=== PATIENT | male | born 1970 | race African-American/Black ===

== ENCOUNTER 2016-11-18 21:42 | Emergency (ER) | payer BC, OTHER ==
[2016-11-18 21:56] VITALS: BP 146/80; PULSE 102; RESP 16; TEMP 98.4
== END 2016-11-18 22:40 | disposition home or self-care (01) ==
LOC: EC 21:42
DX: Z02.9 Encounter for administrative examinations, unspecified (principal)

== ENCOUNTER → 2016-12-04 | Outpatient (CLI) | payer BC, OTHER ==
--- NOTE | 2016-12-04 09:03 | CT ---
EXAMINATION TYPE: CT brain w con DATE OF EXAM: 12/04/2016 COMPARISON: NONE HISTORY: headaches CT DLP: 1090.4 mGycm Automated Exposure Control for Dose Reduction was Utilized. TECHNIQUE: CT scan of the head is performed with IV contrast.,CT scan of the head is performed withou t and with with IV Contrast, patient injected with 100 mL of Omnipaque 300. COMPARISON: None. FINDINGS: Noncontrast images show no acute intracranial hemorrhage or midline shift. The ventricles and sulci are within normal limits in size. Postcontrast images show no suspicious enhancing intrapa renchymal mass. There is old fracture deformity medial wall left orbit. The globes are intact. Visual ized paranasal sinuses are grossly clear. IMPRESSION: No suspicious enhancing intraparenchymal mass or midline shift identified. Evidence of ol d trauma to left orbit.
--- NOTE | 2016-12-04 09:09 | CT ---
EXAMINATION TYPE: CT chest wo con DATE OF EXAM: 12/04/2016 COMPARISON: CT chest October 16, 2008. HISTORY: f/u for previous abnormal lung findings, sarcoidosis CT DLP: 564.8 mGycm. Automated Exposure Control for Dose Reduction was Utilized. TECHNIQUE: CT scan of the thorax is performed without IV contrast. FINDINGS: LUNGS: Calcified pleural plaques are redemonstrated bilaterally. There is persistent linear scarring in both lung bases with slightly more nodular but stable 1.0 x 0.7 mm the lesion right lung base subp leural level on axial image 46 redemonstrated favoring rounded scar over round atelectasis. There is persistent linear scarring in the lingula seen best near coronal image 40. No new suspicious groundgl ass opacity or consolidation is seen. No significant pleural effusion or pneumothorax is present bila terally. No new suspicious nodularity is present. Slightly elevated left hemidiaphragm is again seen. MEDIASTINUM: Lack of IV contrast is noted to limit evaluation for mediastinal and especially hilar ad enopathy. There are persistent suspicious thoracic lymph nodes. For reference right paratracheal lymp h node measures 1.8 x 1.0 cm on axial image 24 unchanged from prior study. There are persistent stabl e prominent bilateral hilar as well as AP window and prevascular lymph nodes. No cardiomegaly or pe ricardial effusion is seen. OTHER: Mild to moderate multilevel spurring in the spine is redemonstrated. IMPRESSION: 1. Redemonstration of calcified pleural plaques suggesting prior asbestos exposure. 2. Redemonstration of borderline thoracic adenopathy and scattered bilateral lower lungs scarring corinne pected product of known sarcoidosis. No significant progression from 2009 study. No suspicious acute pulmonary process is evident.
== END | disposition home or self-care (01) ==
LOC: RADCTMAIN 08:05
PROVIDERS: ATTEND Internal Medicine
DX: J98.4 Other disorders of lung (principal); R59.0 Localized enlarged lymph nodes; R51 Headache
CPT/HCPCS: 70460; 71250; Q9967

== ENCOUNTER 2018-01-06 02:31 | Emergency (ER) | payer BC, OTHER ==
[2018-01-06 02:43] VITALS: BP 142/79; PULSE 99; RESP 16; TEMP 98.7
== END 2018-01-06 03:29 | disposition home or self-care (01) ==
LOC: EC 02:31
DX: Z02.9 Encounter for administrative examinations, unspecified (principal)

== ENCOUNTER → 2019-01-17 | Outpatient (CLI) | payer OTHER ==
[2019-01-17 09:30] LABS: HCT 41.9 % (39.0-53.0); HGB 14.1 gm/dL (13.0-17.5); MCH 28.9 pg (25.0-35.0); MCHC 33.7 g/dL (31.0-37.0); MCV 85.9 fL (80.0-100.0); Mean Platelet Volume 6.6; Platelet Count 309 k/uL (150-450); RBC 4.88 m/uL (4.30-5.90); RDW 13.3 % (11.5-15.5)
[2019-01-17 11:12] LABS: Eosinophils # (M) 0.76 k/uL (0-0.7); Lymphocytes # (M) 1.12 k/uL (1.0-4.8); Monocytes # (M) 0.32 k/uL (0-1.0); Neutrophils % (M) 45 %; Nucleated Red Blood Cells 0 /100 WBC (0-0); Total Cells Counted 100
[2019-01-17 16:21] LABS: African American GFR (CKD) 83.5 (60.0-200.0); Albumin 4.5 g/dL (3.80-4.90); Albumin/Globulin Ratio 1.96 (1.60-3.17); Anion Gap 7.2 mmol/L (4.00-12.00); BUN/Creat Ratio 14.17 Ratio (12.00-20.00); Calcium 9.8 mg/dL (8.7-10.3); Carbon Dioxide 25.8 mmol/L (21.6-31.8); Chol/HDL Ratio 3.53; Globulin 2.3 g/dL (1.6-3.3); LDL Cholesterol,Calculated 112.2 mg/dL (0.0-131.0); Magnesium 1.9 mg/dL (1.5-2.4); Non-African American GFR(CKD) 72.1 (60.0-200.0); Potassium 4.7 mmol/L (3.5-5.5); Total Bilirubin 0.5 mg/dL (0.3-1.2); Total Protein 6.8 g/dL (6.2-8.2); VLDL Calculation 16.8 mg/dL (5.00-40.00)
[2019-01-17 16:23] LABS: Vitamin D 25 Hydroxy 19.6 ng/mL (30.0-100.0)
[2019-01-21 22:25] LABS: Alternaria Alternata IgG 5.3 mcg/mL (< 13.6); Aspergillus fumigatus IgG Not detected (Not detected); Aureobasidium pullulans IgG 3.9 mcg/mL (< 13.6); Cladosporium herbarium IgG 38.7 mcg/mL (< 14.7); Phoma ssp. IgG 6.8 mcg/mL (< 6.6); Saccaharomospora viridis Not detected (Not detected); Saccaharopoly. rectivirgula Not detected (Not detected)
== END | disposition home or self-care (01) ==
LOC: LABWHC1 08:38
PROVIDERS: ATTEND Family Medicine
DX: J30.9 Allergic rhinitis, unspecified (principal); J45.20 Mild intermittent asthma, uncomplicated; R25.2 Cramp and spasm; N40.0 Benign prostatic hyperplasia without lower urinary tract symptoms; Z13.228 Encounter for screening for other metabolic disorders; Z13.220 Encounter for screening for lipoid disorders
CPT/HCPCS: 36415; 80053; 80061; 82164; 82306; 82607; 82785; 83036; 83735; 84153; 84443; 85025; 86001; 86606; 86609

== ENCOUNTER → 2021-08-28 | Outpatient (CLI) | payer BC, OTHER ==
--- NOTE | 2021-08-28 09:16 | XR ---
Left foot HISTORY: Pain, M 79.672, numbness and tingling great toe 3 views of the left foot Bone mineralization and joint spaces are essentially maintained, mild degenerative change present at the metatarsophalangeal joint of the first digit, there may been slight hallux valgus deformity. No f racture or dislocation. IMPRESSION: Mild osteoarthritic changes as described.
== END | disposition home or self-care (01) ==
LOC: RADXRMAIN 08:31
PROVIDERS: ATTEND Nurse Practitioner Gerontology
DX: M19.072 Primary osteoarthritis, left ankle and foot (principal)

== ENCOUNTER 2022-07-29 11:17 | Day surgery (SDC) | payer BC, OTHER ==
[~2022-07-29 11:17] MED LIST: LACTATED RINGERS 1,000 ML IV SCH
[2022-07-29 11:40] VITALS: RESP 18; TEMP 96.9
[2022-07-29] MEDS ORDERED: PROPOFOL 10 MG/ML 20 ML VIAL IV ONE (12:08)
--- NOTE | 2022-07-29 12:35 | P.PCN ---
Date of Procedure: 07/29/22 Procedure(s) Performed: BRIEF HISTORY: Patient is a 52-year-old pleasant -Citizen Of [place] male scheduled for an elective colonoscopy as a part of screening for colon cancer. PROCEDURE PERFORMED: Colonoscopy with biopsy and snare polypectomy. PREOPERATIVE DIAGNOSIS: Screening for colon cancer. IV sedation per Anesthesia. PROCEDURE: After informed consent was obtained, the patient, was brought into the endoscopy unit. IV sedation was administered by Anesthesia under continuous monitoring. Digital rectal examination was normal. Initially the Olympus CF-160 flexible video colonoscope was then inserted in the rectum, gradually advanced into the cecum without any difficulty. Careful examination was performed as the scope was gradually being withdrawn. Ileocecal valve and the appendiceal orifice were visualized and appeared normal. Prep was excellent. Mucosa of the cecum, a large ulcerated circumferential polyps involving the entire cecum and multiple biopsies were done from this area. The ascending colon, appeared normal. In the transverse colon there was a 1.5 cm broad-based polyp removed by snare polypectomy. In the descending colon there was a 1 cm pedunculated polyp removed by snare polypectomy. Rest of the transverse colon, descending colon, sigmoid colon, and rectum appeared normal. In the proximal rectum there was a diminutive polyp removed by cold biopsy Retroflexion was performed in the rectum and no lesions were seen. The patient tolerated the procedure well. IMPRESSION: CircumferentialuUlcerated cecal mass status post biopsy 1.5 cm broad-based transverse colon polyp status post polypectomy 1 cm pedunculated descending colon polyp status post polypectomy 3 mm proximal rectal polyp status post cold biopsy RECOMMENDATIONS: Findings of this examination were discussed with the patient as well as his family. He was advised to follow with the biopsy results and he'll be seen in office in one week. In the meantime he will be scheduled for CT of abdomen and pelvis.
[2022-07-29 12:59] VITALS: BP 112/81; PULSE 78
== END 2022-07-29 13:19 | disposition home or self-care (01) ==
LOC: ORWHC2ENDO 11:17
PROVIDERS: ATTEND Internal Medicine Gastroenterology
DX: Z12.11 Encounter for screening for malignant neoplasm of colon (principal); C18.0 Malignant neoplasm of cecum; D12.4 Benign neoplasm of descending colon; D12.3 Benign neoplasm of transverse colon; E78.5 Hyperlipidemia, unspecified; F12.90 Cannabis use, unspecified, uncomplicated; Z87.891 Personal history of nicotine dependence; Z79.899 Other long term (current) drug therapy
CPT/HCPCS: 45380; 45385; J2704; 88305

== ENCOUNTER → 2022-07-31 | Outpatient (CLI) | payer BC, OTHER ==
--- NOTE | 2022-07-31 12:35 | CT ---
EXAMINATION TYPE: CT abdomen pelvis w con CT DLP: 1345 mGycm, Automated exposure control for dose reduction was used. DATE OF EXAM: 07/31/2022 11:54 AM COMPARISON: 12/04/2016 CLINICAL INDICATION:Male, 52 years old with history of R19.09; Abnormal colonoscopy. TECHNIQUE: Axial CT of the abdomen and pelvis. Sagittal and coronal reformats were created on a [employer] workstation. Contrast used:100ml mL of Isovue 300 with IV Contrast, Oral contrast used: with Oral Contrast FINDINGS: LOWER CHEST: Calcified plaques noted along the pleura. ABDOMEN LIVER: 1 hypodense area within the liver measuring 9 mm series 3 image 21 GALLBLADDER AND BILE DUCTS: Unremarkable. PANCREAS: Unremarkable. SPLEEN: Unremarkable. ADRENAL GLANDS: Unremarkable. KIDNEYS AND URETERS: No evidence of hydronephrosis or renal calculus. The ureters are unremarkable. PELVIS BLADDER: Unremarkable REPRODUCTIVE: Unremarkable. ABDOMEN & PELVIS STOMACH AND BOWEL: Masslike appearance of the cecum measuring 5.7 x 3.4 cm which is near the base of the appendix. The appendix appears to be dilated measuring up to 9 mm and hyperemia of the mucosa. No shiela perforation at this time. There are hazy borders to this mass most pronounced along the medial aspect suggesting microinvasion into the mesenteric fat. PERITONEUM/RETROPERITONEUM: No evidence of pneumoperitoneum or free fluid. VASCULATURE: No evidence of aortic aneurysm. MUSCULOSKELETAL: No acute osseous abnormalities. Mild disc degeneration changes are present throughou t the thoracolumbar spine. LYMPH NODES: A few mesenteric lymph nodes seen in the mesentery near the mass mentioned above, the la rgest measuring up to 8 mm (series 3 image 44) SOFT TISSUE/ABDOMINAL WALL: Unremarkable IMPRESSION: 1. Cecal mass near the base of the appendix resulting in obstruction of the appendix. The appendix i s dilated with fluid with some hyperemia of the mucosa. Findings are concerning for impending rupture of the appendicitis. 2. Mesenteric lymph node and one indeterminate liver lesion which could represent metastatic disease . Consider PET/CT. 3. Calcified pleural plaquing which can be seen in the setting of prior asbestos exposure.
== END | disposition home or self-care (01) ==
LOC: RADCTMAIN 09:49
PROVIDERS: ATTEND Internal Medicine Gastroenterology
DX: J92.0 Pleural plaque with presence of asbestos (principal); R19.09 Other intra-abdominal and pelvic swelling, mass and lump
CPT/HCPCS: 74177; Q9967

== ENCOUNTER → 2022-08-09 | Outpatient (CLI) | payer BC, OTHER ==
--- NOTE | 2022-08-09 17:34 | MR ---
EXAMINATION TYPE: MR liver wo/w con DATE OF EXAM: 08/09/2022 3:45 PM INDICATION: Patient age:Male; 52 years old; Reason for study: K76.9 liver disease; COMPARISON: CT scan abdomen from 07/31/2022. TECHNIQUE: Multiplanar multi-sequence imaging was performed without contrast. Post contrast imaging was performed. Post IV contrast subtraction images were also submitted for review. IV Contrast: 9 cc Gadavist FINDINGS: LOWER CHEST: Pleural calcifications are less well appreciated on MRI. ABDOMEN Liver: Mild signal dropout on in phase chemical shift imaging. Right hepatic lobe 8 mm segment 6 lesion which is high T2/DWI signal and progressively fills in none delayed imaging. No suspicious hepatic lesions. Gallbladder and Bile ducts: Unremarkable. Pancreas: Unremarkable. Spleen: Mild signal dropout on in phase chemical shift imaging. Adrenal glands: Unremarkable. Kidneys: Left high T2 17 mm cyst there is thin septations within this lesion with postcontrast enhanc ement. Right inferior renal pole cyst measuring 8 mm with possible thin enhancing septa. Additional 1 -2 mm cysts Stomach and Bowel: The appendix is dilated up to 9 mm containing high T2 signal throughout the lumen. Masslike area near the cecum is less well visualized given [id number] and is only partially visua lized on coronal imaging. Peritoneum: No evidence of pneumoperitoneum or free fluid. Vasculature: Unremarkable. No aortic aneurysm. Musculoskeletal: The osseous structures appear intact. Lymph Nodes: The lymph node measuring 8 mm in short axis. Abdominal wall: Unremarkable. IMPRESSION: 1. Right hepatic lobe 8 mm lesion is favored to represent a hemangioma or other benign etiology give n progressive enhancement which persists on delayed imaging. No suspicious hepatic lesions. 2. 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 Consider short-t erm follow-up in 3-6 months to ensure stability. 3. Masslike area near the cecum with dilation of the appendix as seen on prior. There is a mesenteri c lymph node which is suspicious given cecal mass. 4. Iron deposition within the liver and spleen.
== END | disposition home or self-care (01) ==
LOC: RADMRIMAIN 14:52
PROVIDERS: ATTEND Internal Medicine Gastroenterology
DX: N28.1 Cyst of kidney, acquired (principal); K76.9 Liver disease, unspecified
CPT/HCPCS: 74183; A9585

== ENCOUNTER → 2022-08-14 | Outpatient (CLI) | payer BC, OTHER ==
--- NOTE | 2022-08-14 11:28 | XR ---
EXAMINATION TYPE: XR chest 2V DATE OF EXAM: 08/14/2022 COMPARISON: 11/10/2016 TECHNIQUE: PA and lateral views submitted. HISTORY: Pre colon surgery exam. FINDINGS: Lungs/Pleura: Bilateral costophrenic angle scarring redemonstrated. Bibasilar pleural plaques. No pne umothorax. No focal consolidation. No pleural effusions. Pulmonary vascularity: Unremarkable. Heart/m ediastinum: Heart is not enlarged. Bilateral hilar prominence is similar to prior examination. Muscul oskeletal: Multiple level degenerative disc disease changes seen throughout the spine. There is a 5mm nodule right lower lobe. IMPRESSION: 1. No acute cardiopulmonary disease/process. There is a 5mm nodule right lower lobe. 2. Redemonstration of calcified pleural plaques suggesting prior asbestos exposure. 3. Stable bilateral hilar prominence likely related to known sarcoidosis.
[2022-08-14 14:54] LABS: Basophils # (A) 0.05 X 10*3/uL (0.00-0.10); Basophils % (A) 1.1 %; Eosinophils % (A) 8.8 %; HCT 39.7 % (39.6-50.0); HGB 13.3 g/dL (13.0-17.0); Immature Grans, Automated 0 %; Lymphocytes # (A) 0.83 X 10*3/uL (0.90-5.00); Lymphocytes % (A) 18.2 %; MCH 27.7 pg (27.0-32.0); MCHC 33.5 g/dL (32.0-37.0); MCV 82.5 fL (80.0-97.0); Mean Platelet Volume 10.5 fL (9.5-12.2); Monocytes % (A) 13.1 %; NRBC Per 100 WBC 0 /100 WBCS (0.0-0.0); Neutrophils # (A) 2.69 X 10*3/uL (1.80-7.70); Neutrophils % (A) 58.8 %; Platelet Count 368 X 10*3/uL (140-440); RBC 4.81 X 10*6/uL (4.40-5.60); RDW 13.6 % (11.5-14.5); WBC 4.57 X 10*3/uL (4.50-10.00)
[2022-08-14 15:11] LABS: Carcinoembryonic Antigen 15.9 ng/mL (0.0-4.9)
[2022-08-14 15:39] LABS: INR 0.88 (0.90-1.11)
[2022-08-14 16:13] LABS: Alpha Fetoprotein, Tumor Mkr <1.82 ng/mL (0.00-7.90)
== END | disposition home or self-care (01) ==
LOC: LABWHC1 09:57
PROVIDERS: ATTEND Family Medicine
DX: Z01.812 Encounter for preprocedural laboratory examination (principal); C18.9 Malignant neoplasm of colon, unspecified; D86.3 Sarcoidosis of skin; J45.20 Mild intermittent asthma, uncomplicated; J68.3 Other acute and subacute respiratory conditions due to chemicals, gases, fumes and vapors
CPT/HCPCS: 36415; 71046; 82105; 82378; 83036; 83615; 83880; 84443; 85025; 85610

== ENCOUNTER 2022-08-29 07:30 | Inpatient (IN) | payer BC, OTHER ==
--- NOTE | 2022-08-21 15:46 | P.PN ---
Progress Note - Text Progress Note Date: 08/21/22 Patient reports obtaining EKG and medical clearance from his PCP Dr. Ramírez's office this month.
--- NOTE | 2022-08-29 06:21 | P.GSHP ---
History of Present Illness H&P Date: 08/29/22 CHIEF COMPLAINT: Colon cancer HISTORY OF PRESENT ILLNESS: The patient is a 52-year-old male recently diagnosed with colon cancer involving the cecum. Cardiac and medical clearance by his primary care provider. He completed colonoscopy within the last 3 weeks with a new diagnosis. He presents today for colonic resection. PAST MEDICAL HISTORY: Please see list. PAST SURGICAL HISTORY: Please see list. MEDICATIONS: Please see list. ALLERGIES: Please see list. SOCIAL HISTORY: No illicit drug use FAMILY HISTORY: No reports of Crohn disease or ulcerative colitis. REVIEW OF ORGAN SYSTEMS: CONSTITUTIONAL: Denies any fever or chills. HEENT: Denies any trouble with vision or nosebleeds. No difficulty swallowing. LYMPHATIC: The patient denies any lumps and bumps around the neck. ENDOCRINE: Denies any thyroid disorders. Has blood sugar glucose intolerance. RESPIRATORY: Denies pneumonia. Denies any troubles with breathing or dyspnea on exertion. History of asthma and sarcoidosis CARDIOVASCULAR: Denies any chest pain, palpitations, or recent heart attacks. GASTROINTESTINAL: See above. GENITOURINARY: Has increased urinary frequency. MUSCULOSKELETAL: Has back pain, stiffness, joint arthritis. NEUROLOGIC: Denies any numbness or tingling along the distal extremities. No seizure disorders or headaches. PSYCHIATRIC: Denies depression or suidical ideation. HEMATOLOGIC: Denies any abnormal bleeding or bruising. PHYSICAL EXAM: VITAL SIGNS: Stable GENERAL: Well-developed pleasant in no acute distress. HEENT: No scleral icterus. Extraocular movements grossly intact. Moist buccal mucosa. NECK: Supple without lymphadenopathy. CHEST: Unlabored respirations. Equal bilateral excursions. CARDIOVASCULAR: Regular rate and rhythm. Distal 2+ pulses. ABDOMEN: Soft, nontender, nondistended. MUSCULOSKELETAL: No clubbing, cyanosis, or edema. NERUO: Regular 2-12 grossly intact. PSYCH: Alert and oriented to person place and time. STUDIES: CT of the abdomen and pelvis independently reviewed demonstrates a large cecal mass with involvement of dilated appendix. This is my independent interpretation. RADIOLOGY: Recent liver MRI report demonstrates hemangioma of the liver. COLONOSCOPY: Report reviewed demonstrates a large ulcerated mass of the cecum. Descending colon polyp in transverse colon polyp resected. PATHOLOGY: Invasive adenocarcinoma involving cecal sample. Adenoma of the descending colon. Adenoma of the transverse colon with high-grade dysplasia. LABS: Elevated CEA levels. ASSESSMENT: 1. Colon cancer PLAN: 1. Benefits and risks of right hemicolectomy, extended reviewed. Robotic- assisted approach was also described. Possibility of open technique described. 2. Enhanced colon recovery program. 3. DVT prophylaxis. 4. Antibiotic prophylaxis. 5. Inpatient hospitalization over 2 nights described. 6. He is elevated risk due to pre-existing sarcoidosis Past Medical History Past Medical History: Hyperlipidemia Additional Past Medical History / Comment(s): sarcoidosis, polyps removed that were abnormal, small tumor History of Any Multi-Drug Resistant Organisms: None Reported Past Surgical History: No Surgical Hx Reported Additional Past Surgical History / Comment(s): achilles tendon repair, colonscopy Past Anesthesia/Blood Transfusion Reactions: No Reported Reaction Additional Past Anesthesia/Blood Transfusion Reaction / Comment(s): no blo9od tx hx Smoking Status: Current some day smoker Medications and Allergies Home Medications Medication Instructions Recorded Confirmed Type No Known Home Medications 08/28/22 08/28/22 History Allergies Allergy/AdvReac Type Severity Reaction Status Date / Time No Known Allergies Allergy Verified 08/28/22 08:06
[~2022-08-29 07:30] MED LIST changes: +ACETAMINOPHEN TAB 500 MG TAB PO PRN; +ALVIMOPAN 12 MG CAPSULE PO PRN; +Antibiotics per Pharmacy 1 EACH MISC MISCELLANE PRN; +DEXAMETHASONE SOD PHOSPHATE 4 MG/ML 1 ML VIAL IV ONE; +HEPARIN SODIUM,PORCINE/PF 5,000 UNIT/0.5 ML SYRINGE SQ PRN; +HYDROmorphone 0.5 MG/0.5 ML SYRINGE IVP PRN; -LACTATED RINGERS 1,000 ML IV SCH; +ONDANSETRON 4 MG/2 ML VIAL IVP ONE; +metroNIDAZOLE-NS PMX 500 MG in SALINE 1 100ML.BAG IVPB PRN
[2022-08-29] MEDS: LACTATED RINGERS 1,000 ML IV SCH (10:20)
[2022-08-29] MEDS ORDERED: SODIUM CHLORIDE 0.9% NEBULIZ 3 ML INHALATION ONE (10:31)
[2022-08-29 10:37] LABS: Basophils % (A) 0 %; Eosinophils # (A) 0.2 k/uL (0-0.7); Eosinophils % (A) 5 %; HCT 41.8 % (39.0-53.0); HGB 14.1 gm/dL (13.0-17.5); Lymphocytes # (A) 0.6 k/uL (1.0-4.8); Lymphocytes % (A) 12 %; MCH 28.2 pg (25.0-35.0); MCHC 33.7 g/dL (31.0-37.0); MCV 83.8 fL (80.0-100.0); Mean Platelet Volume 7.5; Monocytes # (A) 0.2 k/uL (0-1.0); Monocytes % (A) 5 %; Neutrophils # (A) 3.9 k/uL (1.3-7.7); Neutrophils % (A) 77 %; Platelet Count 316 k/uL (150-450); RBC 4.99 m/uL (4.30-5.90); RDW 13.7 % (11.5-15.5); WBC 5.1 k/uL (3.8-10.6)
[2022-08-29 10:51] LABS: ALT 27 U/L (4-49); AST 28 U/L (17-59); African American GFR (CKD) >90 (>60 ml/min/1.73 sqM); Alkaline Phosphatase 66 U/L (38-126); Anion Gap 10 mmol/L; Blood Urea Nitrogen 15 mg/dL (9-20); Calcium 8.8 mg/dL (8.4-10.2); Carbon Dioxide 21 mmol/L (22-30); Chloride 108 mmol/L (98-107); Glucose 283 mg/dL (74-99); Magnesium 2.1 mg/dL (1.6-2.3); Non-African American GFR(CKD) 87 (>60 ml/min/1.73 sqM); Potassium 4.2 mmol/L (3.5-5.1); Sodium 139 mmol/L (137-145); Total Bilirubin 0.4 mg/dL (0.2-1.3)
[2022-08-29] MEDS ORDERED: MIDAZOLAM 2 MG/2 ML VIAL IVP ONE (11:00)
[2022-08-29] MEDS ORDERED: fentaNYL (PF) 50 MCG/ML 2 ML AMP IVP ONE (11:00)
--- NOTE | 2022-08-29 11:33 | P.ANPRN ---
Procedure Note - Anesthesia - Nerve Block Performed Bilateral Erector Spinae Single Time Out Performed: Yes (1059) Date of Procedure: 08/29/22 Procedure Start Time: 11:00 Procedure Stop Time: 11:03 Location of Patient: PreOp Indication: Acute Post-Operative Pain, Requested by Surgeon Specifically requested for management of pain by : Sallie Oconnor Sedation Type: Sedate with meaningful contact maintained Preparation: Sterile Prep Position: Supine Catheter: None Needle Types: Pajunk Needle Gauge: 21 Ultrasound used to visualize needle placement: Yes Ultrasound used to observe medication spread: Yes Injectate: 0.5% Ropivacaine (see comment for volume) (15cc + 5cc nacl pf each side) Blood Aspirated: No Pain Paresthesia on Injection Noted: No Resistance on Injection: Normal Image Stored and Saved: Yes Events: Uneventful and Well Tolerated
[2022-08-29] MEDS ORDERED: MIDAZOLAM 2 MG/2 ML VIAL ONE (11:55)
[2022-08-29] MEDS ORDERED: ROCURONIUM 10 MG/ML (5 ML VIAL) IV ONE (11:55)
[2022-08-29] MEDS ORDERED: LIDOCAINE 2% INJ 20 MG/ML (2 ML VIAL) ONE (11:55)
[2022-08-29] MEDS ORDERED: NEOSTIGMINE 1 MG/ML 10 ML VIAL ONE (11:55)
[2022-08-29] MEDS ORDERED: HYDROmorphone (PF) 1 MG/ML ONE (11:55)
[2022-08-29] MEDS ORDERED: PHENYLEPHRINE-0.9% NACL SYG 1,000 MCG/10 ML SYRINGE ONE (11:55)
[2022-08-29] MEDS ORDERED: SODIUM CHLORIDE 0.9% (PF) 10 ML VIAL ONE (11:55)
[2022-08-29] MEDS ORDERED: PROPOFOL 10 MG/ML 20 ML VIAL IV ONE (11:55)
[2022-08-29] MEDS ORDERED: GLYCOPYRROLATE 0.2 MG/ML 2 ML VIAL ONE (11:55)
[2022-08-29] MEDS ORDERED: fentaNYL (PF) 50 MCG/ML 2 ML AMP ONE (11:55)
[2022-08-29] MEDS ORDERED: LABETALOL 5 MG/ML VIAL MDV ONE (11:55)
[2022-08-29] MEDS ORDERED: ROPIVACAINE 5 MG/ML 30 ML VIAL ONE (11:55)
[2022-08-29] MEDS ORDERED: SUCCINYLCHOLINE CHLORIDE 200 MG/10 ML VIAL IV ONE (11:55)
[2022-08-29] MEDS ORDERED: LIDOCAINE 0.5%-EPI 1:200,000 50 ML VIAL SQ ONE (12:34)
[2022-08-29] MEDS ORDERED: LACTATED RINGERS 1,000 ML IV ONE ×3 (12:50→16:43)
[2022-08-29] MEDS ORDERED: SODIUM CHLORIDE 0.9% 2,000 ML IV ONE (18:32)
[2022-08-29] MEDS ORDERED: TAMSULOSIN 0.4 MG CAP.ER.24H PO STA (18:33)
[2022-08-29] MEDS ORDERED: NALOXONE 0.4 MG/ML 1 ML VIAL IV PRN (18:33)
[2022-08-29] MEDS ORDERED: HYDROmorphone 1 MG/ML 1 ML SYRINGE IVP PRN (18:35)
[2022-08-29] MEDS ORDERED: METOCLOPRAMIDE 5 MG/ML 2 ML VIAL IVP PRN (18:48)
--- NOTE | 2022-08-29 18:48 | P.OP ---
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 Robot-assisted daVinci Xi laparoscopic extended right hemicolectomy Anesthesia: GETA, local, regional block Estimated Blood Loss (ml): 50 Urine output: 450 mL Condition: stable SPECIMENS REMOVED: terminal ileum and extended right colon en bloc, anastomosis COMPLICATIONS: None. Disposition: floor Operative Findings: 1. Liver surface unremarkable for hepatic nodules or metastases 2. More than 6 cm border obtained from cecum along ileum 3. No peritoneal metastases identified 4. Extended right hemicolectomy to mid transverse colon 5. Moderately dilated cecum 6. No perforation of the appendix identified 7. Inflammatory reaction along base of appendix 8. No gross local invasion identified of cecal mass, over 5 cm 9. Redundant hepatic flexure with moderate retroperitoneal attachments requiring additional 1-2 hours for dissection INDICATIONS: The patient is a 52-year-old male who presents with cecal colon cancer. Surgical intervention with colon resection was described in detail. Benefits and risks, including infection, injury to adjacent structures, open surgery possibility for additional surgery was discussed at length. Informed consent was obtained. All questions of the patient and family were answered. DESCRIPTION: Earlier the patient had undergone a bowel prep using the enhanced colon recovery program. The patient was transferred to the operating room and placed in supine position. After general anesthetic, a rivero catheter was placed. The abdomen was prepped and draped in standard sterile fashion as Ioban was placed along the abdomen to minimize any contamination of skin floor. After a timeout protocol was performed, attention was then brought to the left upper quadrant whereby a 0 degree 5 mm laparoscopic trocar entry was performed. The abdominal cavity was entered and insufflated to 15 mmHg pressure, which was tolerated well. Diagnostic laparoscopy demonstrated no injury to bowel, viscera or mesentery. The liver was unremarkable for hepatic metastases. Next trochars were placed along the left lateral abdomen. Two robotic 8-mm trocars were placed along the left lower abdomen. A 12 mm port was placed along the left upper quadrant. Ports were placed 9 cm apart from each other including 15-20 cm away from the target anatomy of the right pelvis. The 5-mm port was exchanged for a 12 mm robotic port. The patient was then placed in right side up 7 and reverse Trendelenburg 7. The robotic da Philipp XI system was primed and docked from the left side of the patient. Using atraumatic graspers and vessel sealer, the robotic system was docked and primed as described. Instruments were interchanged by the financial assistant including scissors, needle cdl company driver, robotic stapler and vessel sealer. Next, attention was brought to identify the cecum. A stay suture using 0 silk was placed along the anterior serosa of the along the terminal ileum. The terminal ileum and ascending colon mesentery was mobilized using a vessel sealer whereby the colon was marked and tagged. The redundant hepatic flexure with moderate retroperitoneal attachments and dissection is performed for additional 1-2 hours. The colon was prepared for resection along the mid transverse colon including for resection along the terminal ileum. Using robot stapler 60 mm blue load, the distal ileum was divided 8 centimeters proximal to the ileocecal valve. The mesentery of the ascending colon was mobilized towards the midline using a vessel sealer. The right colon was mobilized to the mid transverse colon and prepared for resection. The colon was divided using 60 mm green loads. The rest of the colon mesentery was mobilized using vessel sealer including using blunt dissection. The ascending colon was mobilized from proximal to distal with the meeting point of the hepatic flexure. The vascular pedicle of the ileocolic artery was controlled using vessel sealer. The mid transverse colon and distal ileum was brought in a side to side antiperistaltic anastomotic fashion after placing interrupted sutures along the proposed kasi-lumen using 3-0 silk. A colotomy and enterotomy was prepared along both limbs along the antimesenteric border. Next, 60 mm green stapler loads were fired to create the kasi-lumen and hemostatic. The kasi-lumen was reapproximated using 3-0 silk followed by 60 mm green loads for closure of the enterostomy. The mesenteric defect was closed using 2-0 VLOC to prevent internal hernia. All needles and sponges were removed from the abdominal cavity. Next, a 15 mm Endo Catch bag was placed by the financial assistant through the 12 mm trocar of the left upper quadrant. Specimen was placed. The robot was undocked. I re-scrubbed into the case. Via the 12 mm port of the left upper quadrant, the right colon was removed after widening the skin incision to 5-cm using 15-mm Endo Catch bag. The fascial defect was oversewn using 0 Vicryl and Bacilio Emmanuel. Next all pneumoperitoneum was evacuated from the abdominal cavity. The 8-mm trocar sites were reapproximated using 4-0 Monocryl in an interrupted subcuticular fashion. Local anesthetic was infiltrated to all wounds for postop analgesia. All incisions were also cleansed with diluted hydrogen peroxide. Liquid was applied to the rest of the skin incisions. The patient had tolerated the procedure well. The patient was extubated successfully. Intraoperative photos were reviewed with the patient's family who were overall pleased with the level of care. The patient was transferred to the postanesthesia care unit in stable condition.
[2022-08-29] MEDS: FAMOTIDINE 20 MG/2 ML VIAL IV SCH (21:07)
[2022-08-29] MEDS: HEPARIN SODIUM,PORCINE/PF 5,000 UNIT/0.5 ML SYRINGE SQ SCH (21:07)
[2022-08-29] MEDS: fentaNYL PCA 500 MCG/50 ML BAG IV SCH (22:31)
[2022-08-30] MEDS: ACETAMINOPHEN IV (For NPO) 1,000 MG in EMPTY BAG 1 BAG IVPB SCH ×4 (00:05→17:17)
[2022-08-30] MEDS: ONDANSETRON 4 MG/2 ML VIAL IVP SCH ×5 (00:06→23:28)
[2022-08-30] MEDS: SODIUM CHLORIDE 0.9% 1,000 ML IV SCH ×3 (00:06→15:36)
[2022-08-30] MEDS: D5-0.45% NACL WITH KCL 20MEQ/L 1,000 ML IV SCH ×5 (00:06→23:23)
[2022-08-30] MEDS: KETOROLAC 15 MG/ML 1 ML VIAL IVP SCH ×5 (00:06→23:24)
[2022-08-30] MEDS: SIMETHICONE 80 MG CHEWABLE PO SCH ×4 (00:06→20:59)
[2022-08-30 06:29] LABS: Basophils % (A) 0 %; Eosinophils # (A) 0.1 k/uL (0-0.7); Eosinophils % (A) 1 %; HCT 36.7 % (39.0-53.0); Lymphocytes # (A) 0.8 k/uL (1.0-4.8); Lymphocytes % (A) 7 %; MCH 27.8 pg (25.0-35.0); MCHC 32.7 g/dL (31.0-37.0); MCV 84.9 fL (80.0-100.0); Mean Platelet Volume 9.1; Monocytes # (A) 0.7 k/uL (0-1.0); Monocytes % (A) 6 %; Neutrophils % (A) 84 %; Platelet Count 275 k/uL (150-450); RBC 4.32 m/uL (4.30-5.90); WBC 10.7 k/uL (3.8-10.6)
[2022-08-30 06:40] LABS: African American GFR (CKD) >90 (>60 ml/min/1.73 sqM); Anion Gap 9 mmol/L; Blood Urea Nitrogen 13 mg/dL (9-20); Calcium 8.4 mg/dL (8.4-10.2); Carbon Dioxide 22 mmol/L (22-30); Chloride 107 mmol/L (98-107); Glucose 125 mg/dL (74-99); Non-African American GFR(CKD) >90 (>60 ml/min/1.73 sqM); Potassium 4.3 mmol/L (3.5-5.1); Sodium 138 mmol/L (137-145)
[2022-08-30] MEDS: LACTATED RINGERS 1,000 ML IV SCH (07:31)
[2022-08-30] MEDS: FAMOTIDINE 20 MG/2 ML VIAL IV SCH ×2 (08:32→20:59)
[2022-08-30] MEDS: HEPARIN SODIUM,PORCINE/PF 5,000 UNIT/0.5 ML SYRINGE SQ SCH ×2 (08:32→20:59)
[2022-08-30] MEDS: TAMSULOSIN 0.4 MG CAP.ER.24H PO SCH (08:32)
[2022-08-30] MEDS: fentaNYL PCA 500 MCG/50 ML BAG IV SCH (11:13)
--- NOTE | 2022-08-30 17:04 | P.PN ---
Subjective Progress Note Date: 08/30/22 Has appropriate incisional pain following abdominal block. "It now hurts after the block wore off." He is tolerating diet and voiding. Pain pump at bedside. He reports decrease need for narcotics. Discharge pending now nausea, voiding spontaneosly and pain controlled less than 5/10. Continue hospital course pending improvement of incisional pain. Administer missed doses of prophylactic antibiotics. Objective - Vital Signs Vital signs: Vital Signs Temp 98.4 F 08/30/22 14:00 Pulse 74 08/30/22 14:00 Resp 16 08/30/22 14:00 BP 130/90 08/30/22 14:00 Pulse Ox 100 08/30/22 14:00 FiO2 Intake & Output 08/29/22 08/30/22 08/30/22 18:59 06:59 18:59 Intake Total 3750 300 Output Total 500 Balance 3250 300 Weight 94.8 kg Intake: IV 3750 300 Output: Urine 450 Estimated Blood Loss 50 Other: # Voids 1 - Labs CBC & Chem 7: 08/30/22 05:38 08/30/22 05:38 Labs: Abnormal Lab Results - Last 24 Hours (Table) 08/30/22 08/30/22 Range/Units 05:38 05:38 WBC 10.7 H (3.8-10.6) k/uL Hgb 12.0 L (13.0-17.5) gm/dL Hct 36.7 L (39.0-53.0) % Neutrophils # 9.0 H (1.3-7.7) k/uL Lymphocytes # 0.8 L (1.0-4.8) k/uL Glucose 125 H (74-99) mg/dL
[2022-08-30] MEDS: metroNIDAZOLE-NS PMX 500 MG in SALINE 1 100ML.BAG IVPB SCH ×2 (18:10→23:30)
[2022-08-31] MEDS: SODIUM CHLORIDE 0.9% 1,000 ML IV SCH ×2 (04:53→12:03)
[2022-08-31] MEDS: fentaNYL PCA 500 MCG/50 ML BAG IV SCH (06:08)
[2022-08-31] MEDS: KETOROLAC 15 MG/ML 1 ML VIAL IVP SCH ×2 (06:28→12:05)
[2022-08-31] MEDS: metroNIDAZOLE-NS PMX 500 MG in SALINE 1 100ML.BAG IVPB SCH ×2 (06:28→14:17)
[2022-08-31] MEDS: ONDANSETRON 4 MG/2 ML VIAL IVP SCH ×2 (06:28→12:05)
[2022-08-31 06:44] LABS: African American GFR (CKD) 86 (>60 ml/min/1.73 sqM); Anion Gap 3 mmol/L; Blood Urea Nitrogen 11 mg/dL (9-20); Calcium 8.2 mg/dL (8.4-10.2); Carbon Dioxide 25 mmol/L (22-30); Chloride 108 mmol/L (98-107); Glucose 97 mg/dL (74-99); Non-African American GFR(CKD) 74 (>60 ml/min/1.73 sqM); Potassium 4.5 mmol/L (3.5-5.1); Sodium 136 mmol/L (137-145)
[2022-08-31 06:59] LABS: Basophils % (A) 1 %; Eosinophils # (A) 0.2 k/uL (0-0.7); Eosinophils % (A) 4 %; HCT 35.2 % (39.0-53.0); HGB 11.6 gm/dL (13.0-17.5); Lymphocytes # (A) 0.8 k/uL (1.0-4.8); Lymphocytes % (A) 16 %; MCH 27.8 pg (25.0-35.0); MCHC 33.1 g/dL (31.0-37.0); MCV 84.2 fL (80.0-100.0); Mean Platelet Volume 9.3; Monocytes # (A) 0.5 k/uL (0-1.0); Monocytes % (A) 9 %; Neutrophils # (A) 3.7 k/uL (1.3-7.7); Neutrophils % (A) 70 %; Platelet Count 261 k/uL (150-450); RBC 4.19 m/uL (4.30-5.90); RDW 14.2 % (11.5-15.5); WBC 5.4 k/uL (3.8-10.6)
[2022-08-31] MEDS: LACTATED RINGERS 1,000 ML IV SCH (07:46)
[2022-08-31] MEDS: FAMOTIDINE 20 MG/2 ML VIAL IV SCH (09:28)
[2022-08-31] MEDS: HEPARIN SODIUM,PORCINE/PF 5,000 UNIT/0.5 ML SYRINGE SQ SCH (09:28)
[2022-08-31] MEDS: SIMETHICONE 80 MG CHEWABLE PO SCH (09:29)
[2022-08-31] MEDS: TAMSULOSIN 0.4 MG CAP.ER.24H PO SCH (09:29)
[2022-08-31] MEDS ORDERED: SODIUM CHLORIDE 0.9% 2,000 ML IV ONE (10:04)
[2022-08-31] MEDS ORDERED: oxyCODONE-APAP 7.5-325MG 1 EACH TAB PO PRN (12:17)
--- NOTE | 2022-08-31 12:44 | P.DS ---
Providers Date of admission: 08/29/22 09:45 Expected date of discharge: 08/31/22 Attending physician: Sallie Oconnor Consults: 08/29/22 18:51 Consult Physician Routine Consulting Provider: Joe Finn Consult Reason/Comments: colon cancer, new Do you want consulting provider notified?: Yes, Notify in am Primary care physician: [facility] Course: Patient is status post right colectomy for cecal colon cancer. Postoperatively, pain managed with fentanyl CYBER FORENSICS ANALYST including scheduled on narcotic management. Prior to discharge, patient had bowel movement. White blood cell count was normal. Hemoglobin was stable. Discharge instructions: Lifting instructions reviewed. Percocet prescribed with consent form for narcotics obtained. All questions adjusted patient and his over the telephone. Follow-up telehealth in 48 hours. Patient Condition at Discharge: Good Plan - Discharge Summary Discharge Rx Participant: No New Discharge Prescriptions: New Simethicone [Gas-X] 125 mg PO AC-TID PRN #20 capsule PRN Reason: Pain Ibuprofen [Motrin] 600 mg PO Q8HR PRN #30 tab PRN Reason: Pain oxyCODONE-APAP 7.5-325MG [Percocet 7.5-325 mg] 1 tab PO Q6HR PRN 3 Days #12 tab PRN Reason: Pain Acetaminophen Tab [Tylenol Tab] 1,000 mg PO Q6HR PRN #30 tablet PRN Reason: Pain Discharge Medication List Acetaminophen Tab [Tylenol Tab] 1,000 mg PO Q6HR PRN #30 tablet 08/31/22 [Rx] Ibuprofen [Motrin] 600 mg PO Q8HR PRN #30 tab 08/31/22 [Rx] Simethicone [Gas-X] 125 mg PO AC-TID PRN #20 capsule 08/31/22 [Rx] oxyCODONE-APAP 7.5-325MG [Percocet 7.5-325 mg] 1 tab PO Q6HR PRN 3 Days #12 tab 08/31/22 [Rx] Follow up Appointment(s)/Referral(s): Sallie Oconnor MD [STAFF PHYSICIAN] - 09/02/22 Patient Instructions/Handouts: Laparoscopic Bowel Resection (GEN), Colectomy Diet (DC), *[facility] - Managing Your Pain After Surgery Without Opioids, Oxycodone/Acetaminophen (By mouth) Activity/Diet/Wound Care/Special Instructions: EXPECT BOWEL MOVEMENT WITH BLOOD FOR 1 WEEK Wear abdominal binder for comfort. No lifting over 4 pounds in 4 weeks September 28July shower. No bath tub soaks for two weeks until September 12 Avoid steak, tough meats and seeds such as raspberry seeds. See diverticulitis, low fiber, colectomy diet Use Tylenol and ibuprofen scheduled for the next 24-48 hours for best pain relief. Use ice along incisions for today to prevent swelling. Discharge Disposition: HOME SELF-CARE
[2022-08-31 14:05] VITALS: BP 134/79; PULSE 80; RESP 17; TEMP 96.8
[2022-08-31] MEDS: D5-0.45% NACL WITH KCL 20MEQ/L 1,000 ML IV SCH (14:17)
== END 2022-08-31 16:20 | disposition home or self-care (01) | DRG 331 ==
LOC: 2ORMAIN 09:45 → 4SSUR 18:52
PROVIDERS: ADMIT Surgery Plastic and Reconstructive Surgery; ATTEND Surgery Plastic and Reconstructive Surgery
PROC: 8E0W4CZ Robotic Assisted Procedure of Trunk Region, Percutaneous Endoscopic Approach (ICD-10-PCS; principal; 2022-08-29 11:15)
PROC: 0DTL4ZZ Resection of Transverse Colon, Percutaneous Endoscopic Approach (ICD-10-PCS; principal; 2022-08-29 11:15)
PROC: 0DTF4ZZ Resection of Right Large Intestine, Percutaneous Endoscopic Approach (ICD-10-PCS; principal; 2022-08-29 11:15)
DX: C18.0 Malignant neoplasm of cecum (principal); D12.3 Benign neoplasm of transverse colon; J68.3 Other acute and subacute respiratory conditions due to chemicals, gases, fumes and vapors; Z28.310 Unvaccinated for COVID-19; J45.20 Mild intermittent asthma, uncomplicated; D86.3 Sarcoidosis of skin; E78.5 Hyperlipidemia, unspecified; R35.0 Frequency of micturition; M19.90 Unspecified osteoarthritis, unspecified site; D18.03 Hemangioma of intra-abdominal structures; M54.9 Dorsalgia, unspecified; N28.1 Cyst of kidney, acquired; F12.90 Cannabis use, unspecified, uncomplicated; Z79.899 Other long term (current) drug therapy; Z79.51 Long term (current) use of inhaled steroids
CPT/HCPCS: 64999; 80048; 80053; 82378; 83735; 85025; 88309; 93005; 94760

== ENCOUNTER 2022-09-03 04:47 | Inpatient (IN) | payer BC, OTHER ==
[2022-09-03] MEDS ORDERED: ONDANSETRON 4 MG/2 ML VIAL IVP STA (05:15)
[2022-09-03] MEDS ORDERED: PANTOPRAZOLE 40 MG/10 ML VIAL IVP STA (05:15)
[2022-09-03] MEDS ORDERED: SODIUM CHLORIDE 0.9% 2,000 ML IV STA (05:15)
[2022-09-03] MEDS ORDERED: fentaNYL (PF) 50 MCG/ML 2 ML AMP IVP STA (05:22)
[2022-09-03 05:40] LABS: Basophils % (A) 0 %; Eosinophils # (A) 0.1 k/uL (0-0.7); Eosinophils % (A) 1 %; HCT 40.2 % (39.0-53.0); HGB 13.5 gm/dL (13.0-17.5); Lymphocytes # (A) 0.5 k/uL (1.0-4.8); Lymphocytes % (A) 4 %; MCH 28.1 pg (25.0-35.0); MCHC 33.6 g/dL (31.0-37.0); MCV 83.6 fL (80.0-100.0); Mean Platelet Volume 8.2; Monocytes # (A) 0.4 k/uL (0-1.0); Monocytes % (A) 3 %; Neutrophils # (A) 11.3 k/uL (1.3-7.7); Neutrophils % (A) 91 %; Platelet Count 346 k/uL (150-450); RBC 4.81 m/uL (4.30-5.90); RDW 13.8 % (11.5-15.5); WBC 12.5 k/uL (3.8-10.6)
[2022-09-03 05:48] LABS: ALT 24 U/L (4-49); AST 30 U/L (17-59); African American GFR (CKD) 40 (>60 ml/min/1.73 sqM); Albumin 3.4 g/dL (3.5-5.0); Alkaline Phosphatase 63 U/L (38-126); Amylase 65 U/L (30-110); Anion Gap 15 mmol/L; Blood Urea Nitrogen 33 mg/dL (9-20); Calcium 10.2 mg/dL (8.4-10.2); Carbon Dioxide 25 mmol/L (22-30); Chloride 98 mmol/L (98-107); Glucose 152 mg/dL (74-99); Lipase 15 U/L (23-300); Non-African American GFR(CKD) 35 (>60 ml/min/1.73 sqM); Potassium 4.2 mmol/L (3.5-5.1); Sodium 138 mmol/L (137-145); Total Bilirubin 0.9 mg/dL (0.2-1.3); Total Protein 6.4 g/dL (6.3-8.2)
[2022-09-03 06:47] LABS: INR 1.1 (<1.2); Partial Thromboplastin Time 27.3 sec (22.0-30.0); Prothrombin Time 11.4 sec (9.0-12.0)
--- NOTE | 2022-09-03 06:55 | ED ---
General Adult HPI - General Chief complaint: Nausea/Vomiting/Diarrhea Stated complaint: Post Op Complication,Vomiting,Chills Time Seen by Provider: 09/03/22 05:16 Source: patient, RN notes reviewed, old records reviewed Mode of arrival: ambulatory Limitations: no limitations - History of Present Illness Initial comments: Patient is a 52-year-old male who presents emergency Department complaining of abdominal pain, distention, nausea and vomiting beginning yesterday. Last week he did have a colectomy secondary to colon cancer with Dr. Oconnor. Was discharged on Thursday, however began having a symptoms yesterday. Presents emergency department over worsening symptoms. Denies any chest pain or shortness of breath. Denies any fevers or chills. States he has had some bowel movements but they have not been normal for him. Denies any urinary complaints. Presents for further evaluation at this time. - Related Data Previous Rx's Medication Instructions Recorded Acetaminophen Tab [Tylenol Tab] 1,000 mg PO Q6HR PRN #30 tablet 08/31/22 Ibuprofen [Motrin] 600 mg PO Q8HR PRN #30 tab 08/31/22 Simethicone [Gas-X] 125 mg PO AC-TID PRN #20 capsule 08/31/22 oxyCODONE-APAP 7.5-325MG [Percocet 1 tab PO Q6HR PRN 3 Days #12 tab 08/31/22 7.5-325 mg] Allergies Allergy/AdvReac Type Severity Reaction Status Date / Time No Known Allergies Allergy Verified 09/03/22 07:07 Review of Systems ROS Statement: Those systems with pertinent positive or pertinent negative responses have been documented in the HPI. Review of Systems: CONST: Denies fever EYES: Denies blurry vision ENT: Denies nasal congestion C/V: Denies Chest pain RESP: Denies shortness of breath GI: Endorses abdominal pain : Denies dysuria SKIN: Denies rash. MSK: Denies joint pain. NEURO: Denies headache ROS Other: All systems not noted in ROS Statement are negative. Past Medical History Past Medical History: Hyperlipidemia Additional Past Medical History / Comment(s): sarcoidosis, polyps removed that were abnormal, small tumor History of Any Multi-Drug Resistant Organisms: None Reported Past Surgical History: No Surgical Hx Reported Additional Past Surgical History / Comment(s): achilles tendon repair, colonscopy, partial colectomy Past Anesthesia/Blood Transfusion Reactions: No Reported Reaction Additional Past Anesthesia/Blood Transfusion Reaction / Comment(s): no blo9od tx hx Past Psychological History: No Psychological Hx Reported Smoking Status: Current some day smoker Past Alcohol Use History: Occasional Past Drug Use History: Marijuana General Exam - General Exam Comments Initial Comments: General: Appears in moderate distress secondary to abdominal discomfort. HEAD: Normal with no signs of head trauma. EYES: PERRLA, EOMI, conjunctiva normal, no discharge. ENT: Hearing grossly intact, normal oropharynx. Dry mucus membranes RESPIRATORY: Clear breath sounds bilaterally. No wheezes, rales, or rhonchi. C/V: Regular rate and rhythm. S1 and S2 auscultated, no edema, peripheral pulses 2+ and intact throughout ABD: Abdomen is distended, tender to palpation nonspecifically. No guarding. No peritoneal signs. No rebound tenderness. EXT: Normal range of motion, no obvious deformity SKIN: No rashes or lesions observed on exposed skin. NEURO: Alert and oriented 4. Limitations: no limitations Course Vital Signs 09/03/22 09/03/22 04:58 05:46 Temperature 98.1 F Pulse Rate 142 H 131 H Respiratory 24 Rate Blood Pressure 95/77 112/87 O2 Sat by Pulse 97 Oximetry Medical Decision Making - Medical Decision Making Was pt. sent in by a medical professional or institution (BOLIVAR Lim, CLINICAL NURSING PROFESSOR, urgent care, hospital, or correction...) When possible be specific @ -No Did you speak to anyone other than the patient for history (EMS, parent, family, police, friend...)? What history was obtained from this source @ -No Did you review nursing and triage notes (agree or disagree)? Why? @ -I reviewed and agree with nursing and triage notes Were old charts reviewed (outside hosp., previous admission, EMS record, old EKG, old radiological studies, urgent care reports/EKG's, correction records)? Report findings @ -Reviewed old charts From last week. Differential Diagnosis (chest pain, altered mental status, abdominal pain women, abdominal pain men, vaginal bleeding, weakness, fever, dyspnea, syncope, headache, dizziness, GI bleed, back pain, seizure, CVA, palpatations, mental health, musculoskeletal)? @ -Differential Abdominal Pain Women: Appendicitis, Cholecystitis, diverticulosis, ischemic bowel, pancreatitis, hepatitis, UTI, gastroenteritis, AAA, incarcerated hernia, bowel obstruction, constipation, inflammatory bowel, hepatitis, peptic ulcer disease, splenic infarction, perforated viscus, vulvitis, ovarian torsion, PID, kidney stone, placenta abruption, this is not meant to be an all-inclusive list EKG interpreted by me (3pts min.). @ -As above X-rays interpreted by me (1pt min.). @ -None done CT interpreted by me (1pt min.). @ -CT shows findings concerning for small bowel obstruction partial versus ileus. U/S interpreted by me (1pt. min.). @ -None done What testing was considered but not performed or refused? (CT, X-rays, U/S, labs)? Why? @ -None What meds were considered but not given or refused? Why? @ -None Did you discuss the management of the patient with other professionals (juice cat i.e. , PA, CLINICAL NURSING PROFESSOR, lab, RT, psych nurse, social service liaison, attorney lawyer, teacher, custodial officer, case operator)? Give summary @ -Discussed the patient with Dr. Oconnor who accepted the admission. Requested NG tube. No antibody except this time. We'll continue fluid hydration. Was smoking cessation discussed for >3mins.? @ -No Was critical care preformed (if so, how long)? @ -No Were there social determinants of health that impacted care today? How? (Homelessness, low income, unemployed, alcoholism, drug addiction, transportation, low edu. Level, literacy, decrease access to med. care, group home, rehab)? @ -No Was there de-escalation of care discussed even if they declined (Discuss DNR or withdrawal of care, Hospice)? DNR status @ -No What co-morbidities impacted this encounter? (DM, HTN, Smoking, COPD, CAD, Cancer, CVA, ARF, Chemo, Hep., AIDS, mental health diagnosis, sleep apnea, morbid obesity)? @ -None Was patient admitted / discharged? Hospital course, mention meds given and route, prescriptions, significant lab abnormalities, going to OR and other pertinent info. @ -Based on the patient's presentation and physical exam, presents with postop abdominal pain. Concern for possible small bowel obstruction versus postop infection. We'll obtain CT abdomen and pelvis as well as abdominal laboratory studies. Patient will be sent likely treatment with IV fluids, as well as IV Zofran, Protonix, fentanyl. Patient was in agreement this plan. As remarkable for tachycardia which I believe is likely secondary to dehydration as he has had numerous episodes of emesis. Laboratory studies are remarkable for mild leukocytosis of 12 which is likely reactive. Patient has an AK I with a BUN of 33 and creatinine 2.14. Patient also has a lactic acidosis of 3.6. Imaging is remarkable for possible ileus versus partial small bowel obstruction. I discussed the findings with the patient. He is made nothing by mouth. We will start the patient on an NG tube. He is made nothing by mouth. We will continue analgesic medications as well as IV fluids. I discussed the case with his surgeon, Dr. Oconnor who was in agreement this plan. We will hold the antibiotic and now is lactic acidosis is likely secondary to extreme dehydration. Patient was in agreement this plan. Patient admitted in stable condition. Undiagnosed new problem with uncertain prognosis? @ -No Drug Therapy requiring intensive monitoring for toxicity (Heparin, Nitro, Insulin, Cardizem)? @ -No Were any procedures done? @ -No Diagnosis/symptom? @ -Ileus, nausea and vomiting, dehydration Acute, or Chronic, or Acute on Chronic? @ -Acute Uncomplicated (without systemic symptoms) or Complicated (systemic symptoms)? @ -Complicated Side effects of treatment? @ -No Exacerbation, Progression, or Severe Exacerbation? @ -No Poses a threat to life or bodily function? How? (Chest pain, USA, MD, pneumonia, PE, COPD, DKA, ARF, appy, cholecystitis, CVA, Diverticulitis, Homicidal, Suicidal, threat to staff... and all critical care pts) @ -yes - Lab Data Result diagrams: 09/03/22 05:29 09/03/22 05:29 Lab Results 09/03/22 09/03/22 09/03/22 Range/Units 05:29 05:29 05:29 WBC 12.5 H (3.8-10.6) k/uL RBC 4.81 (4.30-5.90) m/uL Hgb 13.5 (13.0-17.5) gm/dL Hct 40.2 (39.0-53.0) % MCV 83.6 (80.0-100.0) fL MCH 28.1 (25.0-35.0) pg MCHC 33.6 (31.0-37.0) g/dL RDW 13.8 (11.5-15.5) % Plt Count 346 (150-450) k/uL MPV 8.2 Neutrophils % 91 % Lymphocytes % 4 % Monocytes % 3 % Eosinophils % 1 % Basophils % 0 % Neutrophils # 11.3 H (1.3-7.7) k/uL Lymphocytes # 0.5 L (1.0-4.8) k/uL Monocytes # 0.4 (0-1.0) k/uL Eosinophils # 0.1 (0-0.7) k/uL Basophils # 0.0 (0-0.2) k/uL PT 11.4 (9.0-12.0) sec INR 1.1 (<1.2) APTT 27.3 (22.0-30.0) sec Sodium 138 (137-145) mmol/L Potassium 4.2 (3.5-5.1) mmol/L Chloride 98 (98-107) mmol/L Carbon Dioxide 25 (22-30) mmol/L Anion Gap 15 mmol/L BUN 33 H (9-20) mg/dL Creatinine 2.14 H (0.66-1.25) mg/dL Est GFR (CKD-EPI)AfAm 40 (>60 ml/min/1.73 sqM) Est GFR (CKD-EPI)NonAf 35 (>60 ml/min/1.73 sqM) Glucose 152 H (74-99) mg/dL Plasma Lactic Acid Jovanni (0.7-2.0) mmol/L Calcium 10.2 (8.4-10.2) mg/dL Total Bilirubin 0.9 (0.2-1.3) mg/dL AST 30 (17-59) U/L ALT 24 (4-49) U/L Alkaline Phosphatase 63 (38-126) U/L Total Protein 6.4 (6.3-8.2) g/dL Albumin 3.4 L (3.5-5.0) g/dL Amylase 65 (30-110) U/L Lipase 15 L (23-300) U/L 09/03/22 Range/Units 05:29 WBC (3.8-10.6) k/uL RBC (4.30-5.90) m/uL Hgb (13.0-17.5) gm/dL Hct (39.0-53.0) % MCV (80.0-100.0) fL MCH (25.0-35.0) pg MCHC (31.0-37.0) g/dL RDW (11.5-15.5) % Plt Count (150-450) k/uL MPV Neutrophils % % Lymphocytes % % Monocytes % % Eosinophils % % Basophils % % Neutrophils # (1.3-7.7) k/uL Lymphocytes # (1.0-4.8) k/uL Monocytes # (0-1.0) k/uL Eosinophils # (0-0.7) k/uL Basophils # (0-0.2) k/uL PT (9.0-12.0) sec INR (<1.2) APTT (22.0-30.0) sec Sodium (137-145) mmol/L Potassium (3.5-5.1) mmol/L Chloride (98-107) mmol/L Carbon Dioxide (22-30) mmol/L Anion Gap mmol/L BUN (9-20) mg/dL Creatinine (0.66-1.25) mg/dL Est GFR (CKD-EPI)AfAm (>60 ml/min/1.73 sqM) Est GFR (CKD-EPI)NonAf (>60 ml/min/1.73 sqM) Glucose (74-99) mg/dL Plasma Lactic Acid Jovanni 3.6 H* (0.7-2.0) mmol/L Calcium (8.4-10.2) mg/dL Total Bilirubin (0.2-1.3) mg/dL AST (17-59) U/L ALT (4-49) U/L Alkaline Phosphatase (38-126) U/L Total Protein (6.3-8.2) g/dL Albumin (3.5-5.0) g/dL Amylase (30-110) U/L Lipase (23-300) U/L - EKG Data -: EKG Interpreted by Me EKG Comments: 12-lead Electrocardiogram Interpretation Note EKG was reviewed and interpreted by myself. 12-lead ECG performed at 0616 is interpreted by me as revealing sinus tachycardia at a rate of 125 beats per minute. [place] is normal. NE interval is 124 ms, QRS duration is 100 ms, QTc is 410 ms.. There were no ST or T wave abnormalities to suggest myocardial ischemia or injury. R wave progression across the precordium was satisfactory. B y my interpretation this EKG is non-diagnostic for acute ischemia. Disposition Clinical Impression: Ileus, Dehydration, Abdominal pain Disposition: ADMITTED IP TO THIS HOSP Condition: Stable Referrals: Analy Ramírez MD [Primary Care Provider] - 1-2 days Time of Disposition: 07:15
--- NOTE | 2022-09-03 06:57 | CT ---
EXAMINATION TYPE: CT abdomen pelvis w con DATE OF EXAM: 09/03/2022 COMPARISON: CT abdomen pelvis July 31, 2022 HISTORY: Partial colectomy done on 08/28/22. Recent nausea, vomiting and generalized abdominal pain. CT DLP: 1444.4 mGycm, Automated Exposure Control for Dose Reduction was Utilized. CONTRAST: CT scan of the abdomen and pelvis is performed without oral and with IV Contrast, patient injected wi th 80ml mL of Isovue 370. FINDINGS: LUNG BASES: Patchy bibasilar opacities favor atelectasis. Calcified pleural plaques in the lung bases are redemonstrated. LIVER/GB: No significant abnormality is appreciated. PANCREAS: No significant abnormality is seen. SPLEEN: No significant abnormality is seen. ADRENALS: No significant abnormality is seen. KIDNEYS: There is 1.2 cm simple appearing thin-walled cyst in the anterior left kidney delayed axial image 38. Bowel: Slightly suboptimal evaluation without enteric contrast. Fluid seen in slightly prominent stom ach. Fluid prominent duodenal sweep. There are prominent fluid-filled small bowel loops occupying the majority of abdomen. There is fecal material seen in prominent distal small bowel in the right lower quadrant and upper pelvis. Surgical sutures at this level are seen. Findings are consistent with int erval proximal partial colectomy and small bowel anastomosis. There is fluid in prominent colon along the periphery. There is free air present in the upper abdomen greatest over the liver. No definitive well-formed thick-walled fluid collection or abscess. PROSTATE/SEMINAL VESICLES: No gross abnormality seen. LYMPH NODES: No greater than 1cm abdominal or pelvic lymph nodes are appreciated. OSSEOUS STRUCTURES: Vacuum disc phenomenon and lower lumbar levels. OTHER: No significant additional abnormality is seen. IMPRESSION: Overall nonspecific bowel gas pattern. Combination of ileus and/or partial obstruction is suspected. There is free air noted which is nonspecific finding in patient with recent surgery.
[2022-09-03] MEDS ORDERED: SODIUM CHLORIDE 0.9% 1,000 ML IV STA ×2 (07:03→07:19)
[2022-09-03] MEDS ORDERED: NALOXONE 0.4 MG/ML 1 ML VIAL IV PRN (07:22)
[2022-09-03] MEDS ORDERED: fentaNYL (PF) 50 MCG/ML 2 ML AMP IVP PRN (07:25)
[2022-09-03] MEDS: ONDANSETRON 4 MG/2 ML VIAL IVP PRN (07:55)
--- NOTE | 2022-09-03 08:12 | XR ---
EXAMINATION TYPE: XR chest 1V portable DATE OF EXAM: 09/03/2022 COMPARISON: NONE HISTORY: NG tube placement TECHNIQUE: Single frontal view of the chest is obtained. FINDINGS: There is free intraperitoneal air. NG tube is seen overlying the gastric body. Bibasilar c onsolidation. Lung apices not included. No overt failure. Heart size normal prominent bowel loops in the upper abdomen IMPRESSION: 1. Free intraperitoneal air as reported by CT scan. Correlate for perforated viscus. 2. NG tube in good position. 3. bilateral lower lobe infiltrate. 4. dilated small bowel correlate for small bowel obstruction or ileus.
[2022-09-03] MEDS ORDERED: SODIUM CHLORIDE 0.9% 1,000 ML IV ONE (12:50)
[2022-09-03] MEDS: METOCLOPRAMIDE 5 MG/ML 2 ML VIAL IVP SCH ×2 (13:02→19:07)
[2022-09-03] MEDS: ACETAMINOPHEN IV (For NPO) 1,000 MG in EMPTY BAG 1 BAG IVPB SCH ×3 (13:41→23:52)
[2022-09-03] MEDS: SIMETHICONE 80 MG CHEWABLE PO SCH ×3 (14:47→21:53)
--- NOTE | 2022-09-03 16:26 | P.GSHP ---
History of Present Illness H&P Date: 09/03/22 CHIEF COMPLAINT: Abdominal pain HISTORY OF PRESENT ILLNESS: This is a 52-year-old male who presented with abdominal pain, abdominal distention with nausea and vomiting that started on Thursday. Patient is status post right hemicolectomy for cecum colon cancer on 08/29/2022. Patient was discharged with Percocet and Motrin for pain control. Patient reports that he did cut back on the Percocet after he started having increased pain and distention. Patient is now having flatus. He has been tachy cardic. And he did have a fever of 101.2 on admission. White count elevated at 12.5. He also has evidence of acute kidney injury and elevated lactic acid level. Computed tomography scan had showed overall nonspecific bowel PATTERN. Combination of ileus and/or partial obstruction is suspected. There is free air noted which is not as sick finding in a patient with recent surgery. Patient initially had NG tube placed in the ER with dark output. PAST MEDICAL HISTORY: See list. PAST SURGICAL HISTORY: See list. MEDICATIONS: See list. ALLERGIES: See list. SOCIAL HISTORY: No illicit drug use. REVIEW OF SYSTEMS: CONSTITUTIONAL: Denies fever or chills. HEENT: Denies blurred vision, vision changes, or eye pain. Denies hemoptysis ENDOCRINE: Denies heat or cold intolerance. CARDIOVASCULAR: Denies chest pain or pressure. RESPIRATORY: No shortness of breath. GASTROINTESTINAL: Please refer to HPI NEURO: Denies history of seizures. PSYCH: No depression or suicidal ideation HEMATOLOGIC: Denies bleeding disorders. LYMPHATIC: The patient denies any lumps and bumps around the neck. GENITOURINARY: Denies any blood in urine or increased urinary frequency. MUSCULOSKELETAL: Denies myalgias. Denies joint swelling. Denies decreased range of motion beyond patients baseline. SKIN: Denies pruitis. Denies rash. PHYSICAL EXAM: VITAL SIGNS: Reviewed GENERAL: Well-developed in no acute distress. HEENT: No sclera icterus. Extraocular movements grossly intact. Moist buccal mucosa. Head is atraumatic, normocephalic. Hears conversational speech. No nasal drainage. NECK: Supple without lymphadenopathy. CHEST: Non-labored respirations and equal bilateral excursions. CARDIOVASCULAR: Palpable 2+ radial pulses. ABDOMEN: Soft. Distended MUSCULOSKELETAL: No clubbing or cyanosis. NEUROLOGIC: No focal or lateralizing signs. Cranial nerves II through XII grossly intact. PSYCH: Appropriate affect. Alert and oriented to person, place and time. SKIN: Well perfused. Good skin turgor. LABORATORY DATA: WBC is 12.5 Hgb 13.5 platelets 346 INR 1.1 Sodium is 138 potassium 4.2 creatinine 2.14 Lactic acid 3.6 down to 1.7 LFTs normal Lipase 15 IMAGING: Computed tomography scan findings as stated above Chest x-ray free intraperitoneal air as reported by computed tomography scan correlate for perforated viscus. NG tube in good position. Bilateral lobe infiltrate. Dilated small bowel correlate for small bowel obstruction or ileus ASSESSMENT: 1. Abdominal pain with nausea and vomiting likely due to ileus due to narcotic use 2. Bilateral lower lobe infiltrate noted on chest x-ray 3. Acute kidney injury 4. Cecum colon cancer status post right hemicolectomy 5. Leukocytosis 6. Dehydration PLAN: -Discontinue NG tube patient is having flatus -Start clear liquid diet -IV antibiotics ordered due to fever, tachycardia and elevated white count -Discontinue Percocet -Discontinue Motrin due to the acute kidney injury -Continue IV fluids at 100 mL per hour -Continue IV Tylenol -GI prophylaxis Protonix and DVT prophylaxis subcu heparin Physician Software Development Test Engineer note has been reviewed by physician. Signing provider agrees with the documented findings, assessment, and plan of care. Past Medical History Past Medical History: Hyperlipidemia Additional Past Medical History / Comment(s): sarcoidosis, polyps removed that were abnormal, small tumor History of Any Multi-Drug Resistant Organisms: None Reported Past Surgical History: No Surgical Hx Reported Additional Past Surgical History / Comment(s): achilles tendon repair, colonscopy, partial colectomy Past Anesthesia/Blood Transfusion Reactions: No Reported Reaction Additional Past Anesthesia/Blood Transfusion Reaction / Comment(s): no blo9od tx hx Past Psychological History: No Psychological Hx Reported Smoking Status: Current some day smoker Past Alcohol Use History: Occasional Past Drug Use History: Marijuana Medications and Allergies Home Medications Medication Instructions Recorded Confirmed Type Acetaminophen Tab [Tylenol Tab] 1,000 mg PO Q6HR PRN #30 tablet 08/31/22 09/03/22 Rx Ibuprofen [Motrin] 600 mg PO Q8HR PRN #30 tab 08/31/22 09/03/22 Rx Simethicone [Gas-X] 125 mg PO AC-TID PRN #20 capsule 08/31/22 09/03/22 Rx oxyCODONE-APAP 7.5-325MG [Percocet 1 tab PO Q6HR PRN 3 Days #12 tab 08/31/22 09/03/22 Rx 7.5-325 mg] Allergies Allergy/AdvReac Type Severity Reaction Status Date / Time No Known Allergies Allergy Verified 09/03/22 07:07 Surgical - Exam Vital Signs Temp Pulse Resp BP Pulse Ox 98.1 F 142 H 24 95/77 97 09/03/22 04:58 09/03/22 04:58 09/03/22 04:58 09/03/22 04:58 09/03/22 04:58 Results - Labs 09/03/22 05:29 09/03/22 05:29 Abnormal Lab Results - Last 24 Hours (Table) 09/03/22 09/03/22 09/03/22 Range/Units 05:29 05:29 05:29 WBC 12.5 H (3.8-10.6) k/uL Neutrophils # 11.3 H (1.3-7.7) k/uL Lymphocytes # 0.5 L (1.0-4.8) k/uL BUN 33 H (9-20) mg/dL Creatinine 2.14 H (0.66-1.25) mg/dL Glucose 152 H (74-99) mg/dL Plasma Lactic Acid Jovanni 3.6 H* (0.7-2.0) mmol/L Albumin 3.4 L (3.5-5.0) g/dL Lipase 15 L (23-300) U/L 09/03/22 Range/Units 08:00 WBC (3.8-10.6) k/uL Neutrophils # (1.3-7.7) k/uL Lymphocytes # (1.0-4.8) k/uL BUN (9-20) mg/dL Creatinine (0.66-1.25) mg/dL Glucose (74-99) mg/dL Plasma Lactic Acid Jovanni 3.1 H* (0.7-2.0) mmol/L Albumin (3.5-5.0) g/dL Lipase (23-300) U/L Diabetes panel 09/03/22 Range/Units 05:29 Sodium 138 (137-145) mmol/L Potassium 4.2 (3.5-5.1) mmol/L Chloride 98 (98-107) mmol/L Carbon Dioxide 25 (22-30) mmol/L BUN 33 H (9-20) mg/dL Creatinine 2.14 H (0.66-1.25) mg/dL Glucose 152 H (74-99) mg/dL Calcium 10.2 (8.4-10.2) mg/dL AST 30 (17-59) U/L ALT 24 (4-49) U/L Alkaline Phosphatase 63 (38-126) U/L Total Protein 6.4 (6.3-8.2) g/dL Albumin 3.4 L (3.5-5.0) g/dL Calcium panel 09/03/22 Range/Units 05:29 Calcium 10.2 (8.4-10.2) mg/dL Albumin 3.4 L (3.5-5.0) g/dL Pituitary panel 09/03/22 Range/Units 05:29 Sodium 138 (137-145) mmol/L Potassium 4.2 (3.5-5.1) mmol/L Chloride 98 (98-107) mmol/L Carbon Dioxide 25 (22-30) mmol/L BUN 33 H (9-20) mg/dL Creatinine 2.14 H (0.66-1.25) mg/dL Glucose 152 H (74-99) mg/dL Calcium 10.2 (8.4-10.2) mg/dL Adrenal panel 09/03/22 Range/Units 05:29 Sodium 138 (137-145) mmol/L Potassium 4.2 (3.5-5.1) mmol/L Chloride 98 (98-107) mmol/L Carbon Dioxide 25 (22-30) mmol/L BUN 33 H (9-20) mg/dL Creatinine 2.14 H (0.66-1.25) mg/dL Glucose 152 H (74-99) mg/dL Calcium 10.2 (8.4-10.2) mg/dL Total Bilirubin 0.9 (0.2-1.3) mg/dL AST 30 (17-59) U/L ALT 24 (4-49) U/L Alkaline Phosphatase 63 (38-126) U/L Total Protein 6.4 (6.3-8.2) g/dL Albumin 3.4 L (3.5-5.0) g/dL
[2022-09-03] MEDS: SODIUM CHLORIDE 0.9% 1,000 ML IV SCH (16:35)
--- NOTE | 2022-09-03 18:54 | P.PN ---
Progress Note - Text Progress Note Date: 09/03/22 Patient reevaluate this evening. He reports having 2 bowel movements. Minimal blood in stools. He has had moderate flatus. He is tolerating clear liquid. "I want to go home." He reports his post-incisional pain has improved from this weekend. He is nontoxic in appearance. CT results reviewed with him in detail for risk of leak however clinically patient denies peritonitis or moderate abdominal pain. For tachycardia, cardiology consultation advised. Avoiding narcotics for risk of ileus reviewed. Patient in agreement. We'll repeat CBC and CMP. Also, incentive spirometer and interim.
[2022-09-03] MEDS: HEPARIN SODIUM,PORCINE/PF 5,000 UNIT/0.5 ML SYRINGE SQ SCH (20:18)
[2022-09-03] MEDS: PIPERACILLIN-TAZOBACTAM 3.375 GM in SODIUM CHLORIDE 0.9% 100 ML IVPB SCH (20:23)
[2022-09-04] MEDS: HYDROmorphone 1 MG/ML 1 ML SYRINGE IVP PRN ×2 (00:01→05:24)
[2022-09-04] MEDS: METOCLOPRAMIDE 5 MG/ML 2 ML VIAL IVP SCH ×3 (01:55→12:14)
[2022-09-04] MEDS: SODIUM CHLORIDE 0.9% 1,000 ML IV SCH ×2 (03:41→17:24)
[2022-09-04] MEDS: ACETAMINOPHEN IV (For NPO) 1,000 MG in EMPTY BAG 1 BAG IVPB SCH ×2 (05:19→15:47)
[2022-09-04] MEDS: PIPERACILLIN-TAZOBACTAM 3.375 GM in SODIUM CHLORIDE 0.9% 100 ML IVPB SCH ×2 (05:56→12:15)
[2022-09-04] MEDS: HEPARIN SODIUM,PORCINE/PF 5,000 UNIT/0.5 ML SYRINGE SQ SCH (09:01)
[2022-09-04] MEDS: SIMETHICONE 80 MG CHEWABLE PO SCH ×3 (09:01→17:55)
[2022-09-04] MEDS: METOPROLOL TARTRATE 12.5 MG TAB PO SCH (09:01)
[2022-09-04] MEDS: PANTOPRAZOLE 40 MG/10 ML VIAL IV SCH (09:01)
--- NOTE | 2022-09-04 09:38 | XR ---
EXAMINATION TYPE: XR abdomen 2V DATE OF EXAM: 09/04/2022 COMPARISON: 09/03/2022 HISTORY: Abdominal pain TECHNIQUE: One view abdominal series FINDINGS: There remains a large amount of free intraperitoneal air postoperatively. This should be correlated c linically. There is marked dilation of small bowel loops which could represent obstructive pattern or ileus. Virtually no air is seen within the pelvis the bowel loops. There is bilateral subsegmental c onsolidation and small pleural effusions. Osseous structures stable. IMPRESSION: 1. There is a sizable amount of free intraperitoneal air correlate clinically. This was noted on the prior exam. 2. Markedly dilated bowel loops correlate for ileus or partial obstruction. 3. Bilateral lower lobe consolidation and small pleural effusion.
[2022-09-04 09:58] LABS: Basophils % (A) 0 %; Eosinophils # (A) 0.1 k/uL (0-0.7); Eosinophils % (A) 1 %; HCT 34.9 % (39.0-53.0); HGB 11.4 gm/dL (13.0-17.5); Lymphocytes # (A) 0.4 k/uL (1.0-4.8); Lymphocytes % (A) 4 %; MCH 27.9 pg (25.0-35.0); MCHC 32.6 g/dL (31.0-37.0); MCV 85.6 fL (80.0-100.0); Mean Platelet Volume 9.7; Monocytes # (A) 0.7 k/uL (0-1.0); Monocytes % (A) 7 %; Neutrophils % (A) 86 %; Platelet Count 301 k/uL (150-450); RBC 4.08 m/uL (4.30-5.90); RDW 14.1 % (11.5-15.5); WBC 10.4 k/uL (3.8-10.6)
[2022-09-04 10:16] LABS: African American GFR (CKD) 73 (>60 ml/min/1.73 sqM); Anion Gap 11 mmol/L; Blood Urea Nitrogen 23 mg/dL (9-20); Calcium 8.7 mg/dL (8.4-10.2); Carbon Dioxide 26 mmol/L (22-30); Chloride 107 mmol/L (98-107); Glucose 126 mg/dL (74-99); Non-African American GFR(CKD) 63 (>60 ml/min/1.73 sqM); Potassium 3.7 mmol/L (3.5-5.1); Sodium 144 mmol/L (137-145)
--- NOTE | 2022-09-04 15:01 | P.CRDCN ---
History of Present Illness Consult date: 09/04/22 Reason for Consult (text): SVT History of present illness: History of present illness: This is a 52-year-old male with no previous cardiac history, he has never had a stress test, cardiac cath. Patient was recently hospitalized for colon cancer underwent partial hemicolectomy on 08/29. Patient states that in no plan for chemotherapy or radiation therapy. We have been asked to evaluate the patient for tachycardia. His heart rate overnight has been running 120 to 1:30 and occasionally up to 1 40 bpm. He has been febrile with temperature max 101.5. Blood pressure is stable. Patient gives history that he came into the hospital due to abdominal bloating. He states he did have a small very small soft stool last evening. Fever started yesterday. He denies having any chest pain, shortness of breath, palpitations. Patient did have NG tube in place yesterday which has subsequently been removed as ordered by general surgery. EKG sinus tachycardia at 125 bpm CAT scan of the abdomen and pelvis revealed overall nonspecific bowel gas pattern. Accommodation of ileus and/or partial obstruction suspected. Free air noted is nonspecific finding. Chest x-ray reveals free intraperitoneal air. Correlate for perforated viscus. NG tube in good position. Bilateral lower lobe infiltrate. Dilated small bowel correlate for small bowel obstruction. Abdominal x-ray 09/04: Sizable amount of free intraperitoneal air this was noted in the prior exam. Markedly dilated bowel loops correlate for ileus or partial obstruction. Bilateral lower lobe consolidation and small pleural effusion. WBC 12.5 now 10.4. Hemoglobin 11.4, platelet count 301. Lactulose are normal. BUN 23 creatinine 1.32. Patient presented with BUN of 33 and creatinine 2.14 with baseline creatinine of 1. Liver function tests are normal. Cardiac medications: none Review Of Systems: At the time of my evaluation: Constitutional: No fever, no chills. No weakness, fatigue or lethargy. EENT: No headache. No dizziness. Lungs: No shortness of breath, cough, no sputum production. No wheezing. Cardiovascular: No chest pain, no lower extremity edema. No palpitations. No paroxysmal nocturnal dyspnea. No orthopnea. No lightheadedness or dizziness. No syncopal episodes. Abdominal: Reports abdominal discomfort, reports abdominal bloating No nausea, vomiting. Genitourinary: No dysuria.. No urinary retention. Musculoskeletal: No myalgias. No muscle weakness, no frequent falls. No back pain. No neck pain. Integumentary: No wounds. No rash. No unusual bruising. Neurologic: No aphasia. No facial droop. No change in mentation. No head injury. No headache. Physical examination: Gen: This is a a 52-year-old black male. He is resting in bed and appears to be uncomfortable. VS: reviewed HEENT: Head is atraumatic, normocephalic. Pupils equal, round. Sclerae is anicteric. NECK: Supple. No JVD. . LUNGS: Clear to auscultation. No wheezes or rhonchi. No intercostal retractions. HEART: Regular rate and rhythm. No murmur. tachycardic. ABDOMEN: Abdominal distention Generalized tenderness. EXTREMITIES: No pedal edema. No calf tenderness. NEUROLOGICAL: Patient is awake, alert and oriented x3. Assessment Sinus tachycardia Lactic acidosis and sepsis Acute kidney injury Recent right hemicolectomy for cecal colon cancer Sarcoidosis with asthma Plan: Start patient on low-dose beta igor with Lopressor 12.5 mg twice daily Continue to treat sepsis Obtain 2-D echocardiogram and Doppler study to assess cardiac structure and func tion Obtain TSH Further recommendations to follow based upon clinical course Thank you kindly for this consultation. Nurse practitioner note has been reviewed, I agree with documented findings and plan of care. Patient was seen and examined. Past Medical History Past Medical History: Hyperlipidemia Additional Past Medical History / Comment(s): sarcoidosis, polyps removed that were abnormal, small tumor History of Any Multi-Drug Resistant Organisms: None Reported Past Surgical History: No Surgical Hx Reported Additional Past Surgical History / Comment(s): achilles tendon repair, colonscopy, partial colectomy Past Anesthesia/Blood Transfusion Reactions: No Reported Reaction Additional Past Anesthesia/Blood Transfusion Reaction / Comment(s): no blo9od tx hx Past Psychological History: No Psychological Hx Reported Smoking Status: Current some day smoker Past Alcohol Use History: Occasional Additional Past Alcohol Use History / Comment(s): marijuana Past Drug Use History: Marijuana Medications and Allergies Home Medications Medication Instructions Recorded Confirmed Type Acetaminophen Tab [Tylenol Tab] 1,000 mg PO Q6HR PRN #30 tablet 08/31/22 09/03/22 Rx Ibuprofen [Motrin] 600 mg PO Q8HR PRN #30 tab 08/31/22 09/03/22 Rx Simethicone [Gas-X] 125 mg PO AC-TID PRN #20 capsule 08/31/22 09/03/22 Rx oxyCODONE-APAP 7.5-325MG [Percocet 1 tab PO Q6HR PRN 3 Days #12 tab 08/31/22 09/03/22 Rx 7.5-325 mg] Allergies Allergy/AdvReac Type Severity Reaction Status Date / Time No Known Allergies Allergy Verified 09/03/22 07:07 Physical Exam Vitals: Vital Signs Temp Pulse Pulse Resp BP BP Pulse Ox 09/04/22 08:00 99.4 F 128 H 18 126/82 97 09/04/22 04:00 100.7 F H 143 H 22 118/78 93 L 09/04/22 00:00 101.1 F H 130 H 24 128/82 98 09/03/22 21:30 99.3 F 131 H 18 116/71 96 09/03/22 20:25 100.5 F H 09/03/22 20:03 101.5 F H 141 H 17 117/66 100 09/03/22 19:03 100.7 F H 138 H 18 119/83 95 09/03/22 17:07 130 H 20 111/72 98 09/03/22 16:36 128 H 18 128/91 98 09/03/22 15:45 98.4 F 134 H 20 122/86 96 09/03/22 14:37 99.6 F 130 H 21 110/87 96 09/03/22 13:05 99.2 F 131 H 19 124/85 98 09/03/22 12:25 101.2 F H 137 H 18 107/63 96 09/03/22 10:40 128 H 20 106/76 100 Intake and Output 09/03/22 09/04/22 09/04/22 22:59 06:59 14:59 Intake Total 10 10 Balance 10 10 Intake: IV 10 10 Invasive Line 1 10 Invasive Line 2 10 Other: Voiding Method Toilet Toilet # Voids 2 # Bowel Movements 1 Weight 96.615 kg Results 09/04/22 09:24 09/04/22 09:24 Current Medications Generic Name Dose Route Start Last Admin Trade Name Freq PRN Reason Stop Dose Admin Heparin Sodium (Porcine) 5,000 unit 09/03/22 21:00 09/03/22 20:18 Heparin Sodium,Porcine/Pf 5,000 Unit/0.5 Ml Syringe SQ 5,000 unit Q12HR VERA Administration Hydromorphone HCl 1 mg 09/03/22 12:50 09/04/22 05:24 Hydromorphone 1 Mg/Ml 1 Ml Syringe IVP 1 mg Q3HR PRN Administration Moderate to Severe Pain (4-10) Piperacillin Sod/Tazobactam 100 mls @ 25 mls/hr 09/03/22 21:00 09/04/22 05:56 Sod 3.375 gm/ Sodium Chloride IVPB 25 mls/hr Q8H VERA Administration Protocol Sodium Chloride 1,000 mls @ 100 mls/hr 09/03/22 16:30 09/04/22 03:41 Saline 0.9% IV Not Given .Q10H VERA Metoclopramide HCl 10 mg 09/03/22 13:00 09/04/22 06:48 Metoclopramide 5 Mg/Ml 2 Ml Vial IVP 10 mg Q6H VERA Administration Naloxone HCl 0.2 mg 09/03/22 07:22 Naloxone 0.4 Mg/Ml 1 Ml Vial IV Q2M PRN Opioid Reversal Ondansetron HCl 4 mg 09/03/22 07:22 09/03/22 07:55 Ondansetron 4 Mg/2 Ml Vial IVP 4 mg Q8HR PRN Administration Nausea And Vomiting Pantoprazole Sodium 40 mg 09/04/22 09:00 Pantoprazole 40 Mg/10 Ml Vial IV DAILY [facility] Simethicone 80 mg 09/03/22 13:00 09/03/22 21:53 Simethicone 80 Mg Chewable PO 80 mg QID VERA Administration Intake and Output 09/03/22 09/04/22 09/04/22 22:59 06:59 14:59 Intake Total 10 10 Balance 10 10 Intake: IV 10 10 Invasive Line 1 10 Invasive Line 2 10 Other: Voiding Method Toilet Toilet # Voids 2 # Bowel Movements 1 Weight 96.615 kg 09/03/22 05:29 09/03/22 05:29
[2022-09-04] MEDS ORDERED: VANCOMYCIN IV PER PHARMACY 1 EACH MISC MISCELLANE PRN (16:14)
--- NOTE | 2022-09-04 16:39 | XR ---
EXAMINATION TYPE: XR chest 1V portable DATE OF EXAM: 09/04/2022 4:24 PM COMPARISON: Chest radiograph from one day prior. TECHNIQUE: XR chest 1V portable Frontal view of the chest. CLINICAL INDICATION:Male, 52 years old with history of shortness of breath; FINDINGS: Lungs/Pleura: Bibasilar atelectasis. No evidence for pneumothorax, pleural effusion or focal consolid ation. Pulmonary vascularity: Unremarkable. Heart/mediastinum: Cardiomediastinal silhouette is unremarkable. Musculoskeletal: No acute osseous pathology. Nasogastric tube is been removed. IMPRESSION: Basilar atelectasis with poor visualization of free air in the abdomen seen on prior CT. Persistent b ibasilar atelectasis.
--- NOTE | 2022-09-04 16:56 | P.PN ---
Subjective Progress Note Date: 09/04/22 CHIEF COMPLAINT: Abdominal pain HISTORY OF PRESENT ILLNESS: The patient is a 52-year-old male status post right hemicolectomy for colon cancer 08/29/2022. He was discharged from the hospital without sequelae 08/31/2022. Patient reports developing abdominal distention leading to his admission on the hospital, yesterday. NG tube was placed by ER provider for ileus. Patient reports passing moderate flatus and having bowel movements with minimal blood. He was placed on clear liquids as his patient stated he wanted to go home. He had fevers last night and this morning over 100.0F. Today, he reports moderate abdominal distention. He is having bowel movements. He does reports increased abdominal pain which was minimally yesterday evening. ROS: No reports of nausea and vomiting today. Having bowel movements today. Has fevers. No chills. No new chest pain. No productive sputum PHYSICAL EXAM: VITAL SIGNS: Reviewed CONSTITUTIONAL: Well developed and in no acute distress. EYES: Conjuctivae without sclera icterus. Extraocular movements grossly intact. HEAD, EARS, NOSE, THROAT: Moist buccal mucosa. Head is atraumatic, normocephalic. Hears conversational speech. No nasal drainage. RESPIRATORY:abored breathing CARDIOVASCULAR: Palpable 2+ radial pulses. Tachycardic, heart rate over 120s ABDOMEN: Distended. No erythema along incisions. No soft tissue abscess. MUSCULOSKELETAL: No gross deformity of the lower extremities noted. No clubbing. No cyanosis. SKIN: Good skin turgor. Well perfused. NEUROLOGIC: Cranial nerves II through XII grossly intact. No focal or late ralizing signs. PSYCH: Appropriate affect. Alert and oriented to person, place and time. CLINICAL LABS: Reviewed. WBC, normal. Creatinine decreased to 1.3. STUDIES: Abdominal x-ray 09/04/2022 with persistent free air, recent postoperative diagnostic laparoscopy. ASSESSMENT: 1. Pneumoperitoneum 2. Tachycardia with fevers consistent with sepsis 3. Acute kidney injury due to severe sepsis 4. Colon cancer status post resection PLAN: 1. Clinical presentation has decline in the past 24 hours despite initial improvement yesterday evening. Recommend emergent surgical intervention with diagnostic laparoscopy to assess anastomosis, possible open technique, colectomy, ostomy reviewed with patient and over the telephone. 2. Cardiology consultation obtained and recover in the intensive care unit requested due to presentation of severe sepsis and supraventricular tachycardia 3. He is responding well to antibiotics and will continue 4. Placement of nasogastric tube described.' 5. Nothing by mouth. 6. Medicine consultation for medical management 7. Obtain nephrology consultation as well Objective - Vital Signs Vital signs: Vital Signs Temp 101.1 F H 09/04/22 15:16 Pulse 125 H 09/04/22 15:16 Resp 20 09/04/22 15:16 BP 120/87 09/04/22 15:16 Pulse Ox 96 09/04/22 15:16 FiO2 Intake & Output 09/03/22 09/04/22 09/04/22 18:59 06:59 18:59 Intake Total 20 360 Balance 20 360 Weight 96.615 kg Intake: IV 20 Invasive Line 1 10 Invasive Line 2 10 Oral 360 Other: Voiding Method Toilet Toilet # Voids 2 1 # Bowel Movements 1 1 - Labs CBC & Chem 7: 09/04/22 09:24 09/04/22 09:24 Labs: Abnormal Lab Results - Last 24 Hours (Table) 09/04/22 09/04/22 Range/Units 09:24 09:24 RBC 4.08 L (4.30-5.90) m/uL Hgb 11.4 L (13.0-17.5) gm/dL Hct 34.9 L (39.0-53.0) % Neutrophils # 9.0 H (1.3-7.7) k/uL Lymphocytes # 0.4 L (1.0-4.8) k/uL BUN 23 H (9-20) mg/dL Creatinine 1.32 H (0.66-1.25) mg/dL Glucose 126 H (74-99) mg/dL
[2022-09-04] MEDS ORDERED: VANCOMYCIN 1,500 MG in SODIUM CHLORIDE 0.9% 500 ML 500 ML IVPB SCH (17:00)
[2022-09-04] MEDS ORDERED: MIDAZOLAM 2 MG/2 ML VIAL IV ONE (18:05)
--- NOTE | 2022-09-04 18:06 | P.PN ---
Progress Note - Text Progress Note Date: 09/04/22 Notified that case is going sooner. I asked her to arrived to the hospital earlier with family members prior to emergency surgery.
[2022-09-04] MEDS ORDERED: LACTATED RINGERS 1,000 ML IV ONE ×5 (18:11→22:12)
[2022-09-04] MEDS ORDERED: LIDOCAINE 0.5%-EPI 1:200,000 50 ML VIAL SQ ONE (18:59)
--- NOTE | 2022-09-04 19:06 | XR ---
EXAMINATION TYPE: XR chest 1V confirm line [facility] DATE OF EXAM: 09/04/2022 6:42 PM COMPARISON: Chest radiographs from 09/04/2022 TECHNIQUE: XR chest 1V confirm line [facility] Frontal view of the chest. CLINICAL INDICATION:Male, 52 years old with history of CENTRAL LINE PLACEMENT; FINDINGS: Lungs/Pleura: Basilar atelectasis. No evidence for pneumothorax, pleural effusion or focal consolidat ion. Pulmonary vascularity: Unremarkable. Heart/mediastinum: Cardiomediastinal silhouette is unremarkable. Musculoskeletal: No acute osseous pathology. Right central venous catheter with tip at the superior cavoatrial junction. IMPRESSION: 1. Right central line with tip in appropriate position. 2. Right basilar airspace probably atelectasis.
--- NOTE | 2022-09-04 19:07 | P.ANPRN ---
Procedure Note - Anesthesia - Invasive Line Right Central Line Time Out Performed: Yes (180) Date of Procedure: 09/04/22 Time of Procedure: 18:06 Location of Patient: Phase I Preparation: Sterile Prep, Sterile Dressing Central Line Location: Internal Jugular (right) Ultrasound Used: Yes Purpose - Visualization and Identification of Vasculature: Yes Needle Guage: 18g angio Image Stored and Saved: Yes Narrative: Central line placement per sterile protocol utilized. +local +angio +cvp +jwire +uneventful dilationa nd introduction right IJ TLC. All lumens bled and flushed. Chest xray done for placement
[2022-09-04] MEDS ORDERED: propofoL 100 ML IV ONE (23:31)
[2022-09-04 23:35] LABS: Glucose,Whole Blood 120 mg/dL (70-110)
[2022-09-04] MEDS ORDERED: Phosphorus Replacement Protoco 1 EACH MISC MISCELLANE PRN (23:48)
[2022-09-04] MEDS ORDERED: Potassium Replacement Protocol 1 EACH MISC MISCELLANE PRN (23:48)
[2022-09-04] MEDS ORDERED: Magnesium Replacement Protocol 1 EACH MISC MISCELLANE PRN (23:48)
--- NOTE | 2022-09-05 00:03 | P.OP ---
Date of Procedure: 09/04/22 Description of Procedure: SURGEON: STEFFI PAULINO MD PREOPERATIVE DIAGNOSES: 1. Pneumoperitoneum 2. Severe sepsis 3. History of colon cancer status post resection 4. Sarcoidosis 5. Acute kidney failure 6. Supraventricular tachycardia 7. Lactic acidosis 8. Fevers POSTOPERATIVE DIAGNOSES: 1. Pneumoperitoneum 2. Severe sepsis 3. History of colon cancer status post resection 4. Sarcoidosis 5. Acute kidney failure 6. Supraventricular tachycardia 7. Lactic acidosis 8. Fevers 9. Perforated colonic diverticulum, transverse colon 10. Intra-abdominal abscess 11. Abdominal ascites OPERATION: 1. Robotic-assisted da Philipp Xi laparoscopic extensive lysis of adhesions over 30 minutes 2. Open exploratory laparotomy with right hemicolectomy and primary anastomosis 3. Drainage of intra-abdominal abscess, 50 mL 4. Abdominal peritoneal lavage, 3 L normal saline 5. Placement of Moiz-Hanley drain pelvis 6. Placement of incisional wound VAC system, 25 cm COMPLICATIONS: None. Anesthesia: GETA, local Estimated Blood Loss (ml): 100 Pathology: Right hemicolectomy with perforated diverticulum, aerobic and anaerobic cultures peritoneal fluid with several cytology Condition: Critical Disposition: Intensive care unit OPERATIVE FINDINGS: 1. Severe peritoneal adhesions involving entire abdomen 2. Bile identified a right upper quadrant with abscess requiring open exploratory laparotomy 3. Previous anastomosis intact without disruption 4. Perforated transverse diverticulum as a cause of pneumoperitoneum 5. Leaflets anterior posterior omentum with complete encasement of transverse colon requiring additional dissection 6. Ileus due to severe sepsis 7. Peritoneal 3 liters normal saline until effluent clear with cultures obtained 8. Anastomosis with perforated diverticulum completely resected with primary ileocolic anastomosis using tri-stapler black loads 9. Release of mesenteric suture of primary anastomosis performed 10. Drain exit along the left lower quadrant INDICATIONS: The patient is a 52-year-old male who presents with initial ileus versus bowel obstruction and pneumoperitoneum from recent surgery. Patient had a nasogastric tube and reported he felt well to want to go home. Patient was encouraged to stay with continued observation. He developed fevers and persistently elevated supraventricular tachycardia heart rate of 140s with worsening abdominal distention. Clinically, patient reported he wasn't feeling well. Emergent exploratory procedure discussed in setting of clinical presentation. Robotic assisted laparoscopic approach was described including possible open, possible ostomy, intubation, placement of nasogastric tube and Cruz catheters, prolonged intubation. Benefits and risks of the procedure including but not limited to bleeding, infection, injury to the small bowel was described. Informed consent was obtained. Patient's present for consent. DESCRIPTION OF PROCEDURE: Patient was brought to the operating room, placed in supine position. After general induction, the abdomen had been prepped and konrad ped in standard sterile fashion. The robotic da Philipp XI system was primed. After a timeout protocol was performed, the patient had been prepped and draped in standard sterile fashion. The robot was docked along the left lateral abdomen. A 5 mm 0 degrees laparoscopic trocar entry was performed along the left upper quadrant. The abdomen was insufflated to 15 mmHg pressure which he tolerated well. Diagnostic laparoscopy demonstrated severe intra-abdominal adhesions involving the midline at the umbilicus and bilateral inguinal are. The small bowel was unremarkable without evidence of dilation or suggestion of obstruction. No injury to the bowel, viscera or mesentery was identified. Next, three 8 mm robotic ports were placed along the upper abdomen. The camera 8-mm port was initially docked along the epigastrium. Please note that the ports were placed at least 8 cm away from the target anatomy. The robot was undocked. All pneumoperitoneum and instruments were evacuated from the abdominal cavity. The incisions were reapproximated using 4-0 Monocryl in an interrupted subcuticular fashion. Please note along the trocar sites, local anesthetic was placed as a field block prior to insertion of all instruments. Liquid glue was applied to the skin. At the end of the procedure needle, sponge, and instrument count had been verified correct by the surgical instrument maker. The patient was transferred to postanesthesia care unit in stable condition. Intraoperative images including findings were described to the patients family. Console time 46 minutes
[2022-09-05] MEDS: HYDROmorphone 1 MG/ML 1 ML SYRINGE IVP PRN ×6 (00:04→23:52)
[2022-09-05 00:08] LABS: ABG Base Excess -0.4 mmol/L; ABG HCO3 25 mmol/L (21-25); ABG Oxygen Saturation 99.9 % (94-97); ABG PCO2 42 mmHg (35-45); ABG PH 7.38 (7.35-7.45); ABG PO2 279 mmHg (83-108); ABG TCO2 26 mmol/L (19-24); Allen Test Performed? Yes
[2022-09-05] MEDS: METOCLOPRAMIDE 5 MG/ML 2 ML VIAL IVP SCH ×6 (00:13→23:52)
[2022-09-05] MEDS: HEPARIN SODIUM,PORCINE/PF 5,000 UNIT/0.5 ML SYRINGE SQ SCH ×3 (00:13→20:28)
[2022-09-05] MEDS: SIMETHICONE 80 MG CHEWABLE PO SCH ×5 (00:14→20:23)
[2022-09-05] MEDS: METOPROLOL TARTRATE 12.5 MG TAB PO SCH ×2 (00:14→08:03)
[2022-09-05] MEDS: SODIUM CHLORIDE 0.9% 1,000 ML IV SCH ×3 (00:20→20:29)
[2022-09-05] MEDS: PIPERACILLIN-TAZOBACTAM 3.375 GM in SODIUM CHLORIDE 0.9% 100 ML IVPB SCH ×4 (00:42→23:52)
[2022-09-05] MEDS: ACETAMINOPHEN IV (For NPO) 1,000 MG in EMPTY BAG 1 BAG IVPB SCH ×3 (00:42→10:40)
[2022-09-05 01:21] LABS: Appearance,Urine Clear (Clear); Bilirubin,Urine Negative (Negative); Blood,Urine Negative (Negative); Color,Urine Yellow; Glucose,Urine (UA) Negative (Negative); Ketones,Urine Trace (Negative); Leukocyte Esterase,Urine Negative (Negative); Nitrite,Urine Negative (Negative); PH, Urine 5.5 (5.0-8.0); Protein,Urine Trace (Negative); Specific Gravity,Urine 1.021 (1.001-1.035); Urobilinogen,Urine <2.0 mg/dL (<2.0)
[2022-09-05 01:27] LABS: Basophils % (A) 0 %; Eosinophils # (A) 0.1 k/uL (0-0.7); Eosinophils % (A) 1 %; HCT 32.6 % (39.0-53.0); HGB 10.4 gm/dL (13.0-17.5); Lymphocytes # (A) 0.4 k/uL (1.0-4.8); Lymphocytes % (A) 5 %; MCH 27.3 pg (25.0-35.0); MCHC 31.9 g/dL (31.0-37.0); MCV 85.6 fL (80.0-100.0); Mean Platelet Volume 9.3; Monocytes # (A) 0.6 k/uL (0-1.0); Monocytes % (A) 8 %; Neutrophils # (A) 6.4 k/uL (1.3-7.7); Neutrophils % (A) 84 %; Platelet Count 284 k/uL (150-450); RBC 3.81 m/uL (4.30-5.90); RDW 14.6 % (11.5-15.5); WBC 7.7 k/uL (3.8-10.6)
[2022-09-05 01:46] LABS: African American GFR (CKD) 80 (>60 ml/min/1.73 sqM); Anion Gap 10 mmol/L; Blood Urea Nitrogen 24 mg/dL (9-20); Calcium 7.6 mg/dL (8.4-10.2); Carbon Dioxide 23 mmol/L (22-30); Chloride 109 mmol/L (98-107); Glucose 121 mg/dL (74-99); Magnesium 1.9 mg/dL (1.6-2.3); Non-African American GFR(CKD) 69 (>60 ml/min/1.73 sqM); Potassium 3.9 mmol/L (3.5-5.1); Sodium 142 mmol/L (137-145)
[2022-09-05] MEDS ORDERED: MAGNESIUM SULFATE-D5W PMX 1 GM in DEXTROSE/WATER 1 100ML.BAG IVPB ONE (01:59)
[2022-09-05] MEDS: POTASSIUM CHLORIDE 10 MEQ in WATER FOR INJECTION 1 100ML.BAG IVPB SCH ×2 (02:26→04:03)
[2022-09-05 04:45] LABS: Basophils % (A) 0 %; Eosinophils % (A) 0 %; HCT 31.9 % (39.0-53.0); HGB 10.4 gm/dL (13.0-17.5); Lymphocytes # (A) 0.4 k/uL (1.0-4.8); Lymphocytes % (A) 5 %; MCH 27.6 pg (25.0-35.0); MCHC 32.6 g/dL (31.0-37.0); MCV 84.4 fL (80.0-100.0); Mean Platelet Volume 8.9; Monocytes # (A) 0.6 k/uL (0-1.0); Monocytes % (A) 7 %; Neutrophils # (A) 7.4 k/uL (1.3-7.7); Neutrophils % (A) 86 %; Platelet Count 281 k/uL (150-450); RBC 3.78 m/uL (4.30-5.90); RDW 14.5 % (11.5-15.5); WBC 8.6 k/uL (3.8-10.6)
--- NOTE | 2022-09-05 04:47 | XR ---
EXAMINATION TYPE: XR chest 1V DATE OF EXAM: 09/05/2022 CLINICAL HISTORY: Difficulty breathing progress study. TECHNIQUE: Single AP portable upright view of the chest is obtained. COMPARISON: Chest x-ray from one day earlier FINDINGS: New endotracheal tube terminates at mid clavicular level 5 cm above katelyn. New orogastric tube terminates below diaphragm. Stable right internal jugular central venous catheter. Persistent elevated left hemidiaphragm and bibasilar opacities along with mild cardiomegaly. No pneum othorax is seen. Osseous structures are intact. IMPRESSION: 1. New endotracheal and orogastric tubes satisfactory in position. 2. Stable cardiomegaly with small bilateral pleural effusions and bibasilar atelectasis and/or infilt rate are all redemonstrated.
[2022-09-05 04:49] LABS: African American GFR (CKD) 70 (>60 ml/min/1.73 sqM); Anion Gap 10 mmol/L; Blood Urea Nitrogen 23 mg/dL (9-20); Calcium 7.6 mg/dL (8.4-10.2); Carbon Dioxide 23 mmol/L (22-30); Chloride 108 mmol/L (98-107); Glucose 120 mg/dL (74-99); Non-African American GFR(CKD) 60 (>60 ml/min/1.73 sqM); Sodium 141 mmol/L (137-145)
[2022-09-05 06:13] LABS: ABG Base Excess 0.6 mmol/L; ABG HCO3 25 mmol/L (21-25); ABG Oxygen Saturation 99.7 % (94-97); ABG PCO2 39 mmHg (35-45); ABG PH 7.42 (7.35-7.45); ABG PO2 179 mmHg (83-108); ABG TCO2 26 mmol/L (19-24); Allen Test Performed? Yes
[2022-09-05 06:37] LABS: Glucose,Whole Blood 134 mg/dL (70-110)
[2022-09-05] MEDS: PANTOPRAZOLE 40 MG/10 ML VIAL IV SCH (08:02)
[2022-09-05] MEDS ORDERED: CHLORHEXIDINE GLUCONATE 15 ML CUP MUCOUS MEM SCH (09:00)
--- NOTE | 2022-09-05 10:54 | P.PN ---
Subjective History of present illness: This is a 52-year-old male with no previous cardiac history, he has never had a stress test, cardiac cath. Patient was recently hospitalized for colon cancer underwent partial hemicolectomy on 08/29. Patient states that in no plan for chemotherapy or radiation therapy. We have been asked to evaluate the patient for tachycardia. His heart rate overnight has been running 120 to 1:30 and occasionally up to 1 40 bpm. He has been febrile with temperature max 101.5. Blood pressure is stable. Patient gives history that he came into the hospital due to abdominal bloating. He states he did have a small very small soft stool last evening. Fever started yesterday. He denies having any chest pain, shortness of breath, palpitations. Patient did have NG tube in place yesterday which has subsequently been removed as ordered by general surgery. EKG sinus tachycardia at 125 bpm CAT scan of the abdomen and pelvis revealed overall nonspecific bowel gas pattern. Accommodation of ileus and/or partial obstruction suspected. Free air noted is nonspecific finding. Chest x-ray reveals free intraperitoneal air. Correlate for perforated viscus. NG tube in good position. Bilateral lower lobe infiltrate. Dilated small bowel correlate for small bowel obstruction. Abdominal x-ray 09/04: Sizable amount of free intraperitoneal air this was noted in the prior exam. Markedly dilated bowel loops correlate for ileus or partial obstruction. Bilateral lower lobe consolidation and small pleural effusion. WBC 12.5 now 10.4. Hemoglobin 11.4, platelet count 301. Lactulose are normal. BUN 23 creatinine 1.32. Patient presented with BUN of 33 and creatinine 2.14 with baseline creatinine of 1. Liver function tests are normal. Cardiac medications: none 09/05 Patient seen and examined. Patient having increased abdominal pain, increased tachypnea and remained tachycardic yesterday with worsening abdominal pain. Therefore patient was taken back for exploratory laparotomy and found to have pneumoperitoneum and perforated bowel and underwent further hemicolectomy. Patient has continued to have sinus tachycardia with heart rates in the 100-120 range. He was started on low-dose metoprolol however currently intubated and sedated and not taking oral pills. FiO2 40% and appears comfortable on ventilator. Chest x-ray showed no significant volume overload. Physical examination: Gen: This is a a 52-year-old black male. He is resting in bed and appears to be uncomfortable. VS: reviewed HEENT: Head is atraumatic, normocephalic. Pupils equal, round. Sclerae is anicteric. NECK: Supple. No JVD. . LUNGS: Clear to auscultation. No wheezes or rhonchi. No intercostal retractions. HEART: Regular rate and rhythm. No murmur. tachycardic. ABDOMEN: Abdominal distention Generalized tenderness. EXTREMITIES: No pedal edema. No calf tenderness. NEUROLOGICAL: Patient is awake, alert and oriented x3. 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 We will hold off on metoprolol given borderline blood pressures. Noted to be normal. Preliminary echo report reviewed with EF 50-55% without significant valvular disease. Continue supportive care. No further recommendations from a cardiology standpoint. Please call with any questions. Objective - Vital Signs Vital signs: Vital Signs Temp 99.9 F H 09/05/22 08:00 Pulse 111 H 09/05/22 10:00 Resp 20 09/05/22 10:00 BP 96/66 09/05/22 10:00 Pulse Ox 98 09/05/22 10:00 FiO2 50 09/05/22 08:00 Intake & Output 09/04/22 09/05/22 09/05/22 18:59 06:59 18:59 Intake Total 960 4423.470 400 Output Total 1675 415 Balance 960 2748.470 -15 Weight 105.7 kg Intake: IV 600 4200 300 Sodium Chloride 0.9% 1, 700 300 000 ml @ 100 mls/hr IV . Q10H [facility] Rx#:[id number] Intake, IV Titration 223.470 100 Amount propofoL 1,000 mg In 223.470 100 Empty Bag 1 bag @ 15 MCG/ KG/MIN 8.695 mls/hr IV . [id number] VERA Rx#:[id number] Oral 360 Output: Gastric Drainage 700 250 Drainage 130 20 Left Lower Abdomen 130 20 Urine 745 145 Estimated Blood Loss 100 Other: Voiding Method Toilet Indwelling Catheter Indwelling Catheter # Voids 1 # Bowel Movements 1 - Labs CBC & Chem 7: 09/05/22 03:57 09/05/22 03:57 Labs: Abnormal Lab Results - Last 24 Hours (Table) 09/04/22 09/05/22 09/05/22 Range/Units 23:32 00:07 00:52 RBC 3.81 L (4.30-5.90) m/uL Hgb 10.4 L (13.0-17.5) gm/dL Hct 32.6 L (39.0-53.0) % Lymphocytes # 0.4 L (1.0-4.8) k/uL ABG pO2 279 H (83-108) mmHg ABG Total CO2 26 H (19-24) mmol/L ABG O2 Saturation 99.9 H (94-97) % Chloride (98-107) mmol/L BUN (9-20) mg/dL Creatinine (0.66-1.25) mg/dL Glucose (74-99) mg/dL POC Glucose (mg/dL) 120 H (70-110) mg/dL Calcium (8.4-10.2) mg/dL Urine Protein (Negative) Urine Ketones (Negative) 09/05/22 09/05/22 09/05/22 Range/Units 00:52 01:00 03:57 RBC (4.30-5.90) m/uL Hgb (13.0-17.5) gm/dL Hct (39.0-53.0) % Lymphocytes # (1.0-4.8) k/uL ABG pO2 (83-108) mmHg ABG Total CO2 (19-24) mmol/L ABG O2 Saturation (94-97) % Chloride 109 H 108 H (98-107) mmol/L BUN 24 H 23 H (9-20) mg/dL Creatinine 1.36 H (0.66-1.25) mg/dL Glucose 121 H 120 H (74-99) mg/dL POC Glucose (mg/dL) (70-110) mg/dL Calcium 7.6 L 7.6 L (8.4-10.2) mg/dL Urine Protein Trace H (Negative) Urine Ketones Trace H (Negative) 09/05/22 09/05/22 09/05/22 Range/Units 03:57 06:11 06:35 RBC 3.78 L (4.30-5.90) m/uL Hgb 10.4 L (13.0-17.5) gm/dL Hct 31.9 L (39.0-53.0) % Lymphocytes # 0.4 L (1.0-4.8) k/uL ABG pO2 179 H (83-108) mmHg ABG Total CO2 26 H (19-24) mmol/L ABG O2 Saturation 99.7 H (94-97) % Chloride (98-107) mmol/L BUN (9-20) mg/dL Creatinine (0.66-1.25) mg/dL Glucose (74-99) mg/dL POC Glucose (mg/dL) 134 H (70-110) mg/dL Calcium (8.4-10.2) mg/dL Urine Protein (Negative) Urine Ketones (Negative)
--- NOTE | 2022-09-05 11:26 | P.NPCON ---
History of Present Illness - Reason for Consult acute renal failure - History of Present Illness Patient is a 52-year-old male with history of colon cancer status post recent partial hemicolectomy on 08/29/2022. Patient was discharged and readmitted with fever. Patient was taken to the OR yesterday on 09/04/2022 for pneumoperitoneum. Patient had explorative laparotomy with right hemicolectomy and primary reanastomosis and drainage of an intra-abdominal abscess which appear to be at a different spot from the site of previous surgery. Patient was hypotensive. He has received multiple fluid boluses. Current urine output at 35-60 mL per hour. No pressors on board Serum creatinine was 2.1 on admission and decreased to 1.3 today. Currently maintained on normal saline at 100 mL an hour. Review of Systems As per HPI Past Medical History Past Medical History: Hyperlipidemia Additional Past Medical History / Comment(s): sarcoidosis, polyps removed that were abnormal, small tumor History of Any Multi-Drug Resistant Organisms: None Reported Past Surgical History: No Surgical Hx Reported Additional Past Surgical History / Comment(s): achilles tendon repair, colonscopy, partial colectomy Past Anesthesia/Blood Transfusion Reactions: No Reported Reaction Additional Past Anesthesia/Blood Transfusion Reaction / Comment(s): no blo9od tx hx Past Psychological History: No Psychological Hx Reported Smoking Status: Current some day smoker Past Alcohol Use History: Occasional Additional Past Alcohol Use History / Comment(s): marijuana Past Drug Use History: Marijuana Medications and Allergies Home Medications Medication Instructions Recorded Confirmed Type Acetaminophen Tab [Tylenol Tab] 1,000 mg PO Q6HR PRN #30 tablet 08/31/22 09/03/22 Rx Ibuprofen [Motrin] 600 mg PO Q8HR PRN #30 tab 08/31/22 09/03/22 Rx Simethicone [Gas-X] 125 mg PO AC-TID PRN #20 capsule 08/31/22 09/03/22 Rx oxyCODONE-APAP 7.5-325MG [Percocet 1 tab PO Q6HR PRN 3 Days #12 tab 08/31/22 09/03/22 Rx 7.5-325 mg] Allergies Allergy/AdvReac Type Severity Reaction Status Date / Time No Known Allergies Allergy Verified 09/03/22 07:07 Physical Exam Vitals: Vital Signs Temp Pulse Pulse Pulse Resp BP BP 09/05/22 11:01 09/05/22 11:00 101.1 F H 114 H 18 112/65 09/05/22 10:00 111 H 20 96/66 09/05/22 09:00 112 H 18 93/60 09/05/22 08:00 99.9 F H 115 H 18 108/67 09/05/22 07:46 09/05/22 07:41 09/05/22 07:00 118 H 19 103/64 09/05/22 06:15 09/05/22 06:00 101 F H 115 H 19 99/67 09/05/22 05:00 117 H 21 107/67 09/05/22 04:00 100.5 F H 108 H 19 100/69 09/05/22 03:30 09/05/22 03:01 115 H 20 132/85 09/05/22 02:00 110 H 20 122/81 09/05/22 01:00 116 H 23 122/83 09/05/22 00:10 09/05/22 00:00 100.3 F H 121 H 20 163/110 09/04/22 23:47 09/04/22 23:43 09/04/22 18:00 113 H 16 121/82 09/04/22 17:15 98.8 F 09/04/22 15:16 101.1 F H 125 H 20 120/87 09/04/22 12:00 99 F 131 H 16 126/79 Pulse Ox FiO2 09/05/22 11:01 40 09/05/22 11:00 97 40 09/05/22 10:00 98 09/05/22 09:00 98 09/05/22 08:00 97 50 09/05/22 07:46 50 09/05/22 07:41 40 09/05/22 07:00 98 09/05/22 06:15 40 09/05/22 06:00 100 09/05/22 05:00 100 09/05/22 04:00 100 50 09/05/22 03:30 50 09/05/22 03:01 99 09/05/22 02:00 100 09/05/22 01:00 100 09/05/22 00:10 60 09/05/22 00:00 100 100 09/04/22 23:47 100 09/04/22 23:43 100 09/04/22 18:00 95 09/04/22 17:15 09/04/22 15:16 96 09/04/22 12:00 96 Intake and Output 09/04/22 09/05/22 09/05/22 22:59 06:59 14:59 Intake Total 4100 923.470 400 Output Total 100 1575 415 Balance 4000 -651.530 -15 Intake: IV 4100 700 300 Sodium Chloride 0.9% 1, 700 300 000 ml @ 100 mls/hr IV . Q10H [facility] Rx#:[id number] Intake, IV Titration 223.470 100 Amount propofoL 1,000 mg In 223.470 100 Empty Bag 1 bag @ 15 MCG/ KG/MIN 8.695 mls/hr IV . [id number] [facility] Rx#:[id number] Output: Gastric Drainage 700 250 Drainage 130 20 Left Lower Abdomen 130 20 Urine 745 145 Estimated Blood Loss 100 Other: Voiding Method Indwelling Catheter Indwelling Catheter Weight 105.7 kg Patient is sedated and on the vent Examination of the heart S1 and S2 Examination of the lungs bilateral breath sounds are heard Abdomen is soft, incision is dressed. Drains noted. Examination lower extremity shows no significant edema Results - Lab Results Most recent lab results ABG pH 7.42 (7.35-7.45) 09/05/22 06:11 ABG pCO2 39 mmHg (35-45) 09/05/22 06:11 ABG pO2 179 mmHg (83-108) H 09/05/22 06:11 ABG HCO3 25 mmol/L (21-25) 09/05/22 06:11 ABG O2 Saturation 99.7 % (94-97) H 09/05/22 06:11 Calcium 7.6 mg/dL (8.4-10.2) L 09/05/22 03:57 Magnesium 1.9 mg/dL (1.6-2.3) 09/05/22 00:52 09/05/22 03:57 09/05/22 03:57 Assessment and Plan Assessment: 1. Acute kidney injury, nonoliguric ischemic ATN from hypotension and sepsis. Renal function is improving. UA is quite benign. 2. Intra-abdominal abscess status post explorative laparotomy and further colon resection and drainage of abscess with lysis of adhesions 3. Colon cancer status post initial partial colectomy on 08/29/2022 4. History of sarcoidosis with asthma. Calcium is 7.6 5. Sepsis from intra-abdominal abscess Plan: Continue with IV fluids Monitor vancomycin levels closely Repeat labs in a.m. Avoid any other nephrotoxic agents. Thank you for the consultation. We will continue to follow the patient with you during his hospitalization.
[2022-09-05 12:00] LABS: Glucose,Whole Blood 114 mg/dL (70-110)
[2022-09-05] MEDS ORDERED: VANCOMYCIN 1,500 MG in SODIUM CHLORIDE 0.9% 500 ML 500 ML IVPB SCH (12:00)
--- NOTE | 2022-09-05 12:43 | CA ---
Transthoracic Echo Report Name: Roman Grajeda Age: 52 Gender: M : 1970 Exam Date: 09/04/2022 13:29 Exam Location: [place] [facility] Ht (in): 73 Wt (lb): 213 Ordering Physician: Therese Loera Attending/Referring Phys: [id number], Luz Maria Awake Overnight Counselor Rafael Barr Procedure CPT: Indications: LVF Cardiac Hx: Technical Quality: Fair Contrast 1: Total Dose (mL): Contrast 2: Total Dose (mL): MEASUREMENTS (Male / Female) Normal Values 2D ECHO LV Diastolic Diameter PLAX 3.5 cm 4.2 - 5.9 / 3.9 - 5.3 cm IVS Diastolic Thickness 1.3 cm 0.6 - 1.0 / 0.6 - 0.9 cm LVPW Diastolic Thickness 1.3 cm 0.6 - 1.0 / 0.6 - 0.9 cm LV Relative Wall Thickness 0.7 RV Internal Dim ED PLAX 2.9 cm LVOT Diameter 2.5 cm Aortic Root Diameter 3.2 cm LA Systolic Diameter LX 3.1 cm 3.0 - 4.0 / 2.7 - 3.8 cm LV Diastolic Volume MOD BP 61.7 cm??? 67 - 155 / 56 - 104 cm??? LV Systolic Volume MOD BP 31.5 cm??? 22 - 58 / 19 - 49 cm??? LV Ejection Fraction MOD BP 48.9 % >= 55 % LV Diastolic Volume MOD 4C 75.1 cm??? LV Systolic Volume MOD 4C 38.0 cm??? LV Ejection Fraction MOD 4C 49.5 % LV Diastolic Length 4C 6.6 cm LV Systolic Length 4C 5.5 cm LV Diastolic Volume MOD 2C 50.4 cm??? LV Systolic Volume MOD 2C 24.0 cm??? LV Ejection Fraction MOD 2C 52.4 % LV Diastolic Length 2C 6.5 cm LV Systolic Length 2C 5.0 cm LA Volume 38.3 cm??? 18 - 58 / 22 - 52 cm??? Ascending Aorta Diameter 3.0 cm DOPPLER LVOT Peak Velocity 107.2 cm/s LVOT Peak Gradient 4.6 mmHg MV Peak Velocity 120.4 cm/s MV Peak Gradient 5.8 mmHg MV Mean Velocity 63.5 cm/s MV Mean Gradient 2.1 mmHg MV Velocity Time Integral 22.1 cm Mitral E Point Velocity 101.5 cm/s Mitral A Point Velocity 86.4 cm/s Mitral E to A Ratio 1.2 MV Deceleration Time 140.0 ms MV E' Velocity 13.8 cm/s Mitral E to MV E' Ratio 7.3 TR Peak Velocity 239.8 cm/s TR Peak Gradient 23.0 mmHg Right Ventricular Systolic Press 29.2 mmHg FINDINGS Left Ventricle Left ventricular ejection fraction is estimated at 50-55 %. Right Ventricle Normal right ventricular size. RVSP=24mmhg Right Atrium Normal right atrial size. Left Atrium Normal left atrial size. Mitral Valve Structurally normal mitral valve. No mitral regurgitation. Aortic Valve Trileaflet aortic valve. No aortic valve stenosis or regurgitation. Tricuspid Valve Structurally normal tricuspid valve. Mild TR. Pulmonic Valve Structurally normal pulmonic valve. No pulmonic regurgitation. Pericardium Not well visualized. Aorta Aortic root and proximal ascending aorta not well visualized. CONCLUSIONS Normal LV systolic function Previewed by: Dr. Bradford Russell MD (Electronically Signed) Final Date: 05 September 2022 12:42
--- NOTE | 2022-09-05 14:41 | P.CONS ---
History of Present Illness - Reason for Consult Consult date: 09/05/22 - Chief Complaint Medical management - History of Present Illness 52-year-old male who presents with initial ileus versus bowel obstruction and pneumoperitoneum from recent surgery. Patient had a nasogastric tube and reported he felt well to want to go home. Patient was encouraged to stay with continued observation. He developed fevers and persistently elevated supraventricular tachycardia heart rate of 140s with worsening abdominal distention. Clinically, patient reported he wasn't feeling well. Emergent exploratory procedure-- Robotic-assisted da Philipp Xi laparoscopic extensive lysis of adhesions; Open exploratory laparotomy with right hemicolectomy and primary anastomosis; Drainage of intra-abdominal abscess; Abdominal peritoneal lavage Patient has continued to have sinus tachycardia with heart rates in the 100-120 range. He was started on low-dose metoprolol however currently intubated and sedated and not taking oral pills. FiO2 40% and appears comfortable on ventilator. Respiratory therapies at bedside and preparing to extubate patient Review of Systems ROS unobtainable: due to endotracheal tube Past Medical History Past Medical History: Hyperlipidemia Additional Past Medical History / Comment(s): sarcoidosis, polyps removed that were abnormal, small tumor History of Any Multi-Drug Resistant Organisms: None Reported Past Surgical History: No Surgical Hx Reported Additional Past Surgical History / Comment(s): achilles tendon repair, colonscopy, partial colectomy Past Anesthesia/Blood Transfusion Reactions: No Reported Reaction Additional Past Anesthesia/Blood Transfusion Reaction / Comm: no blo9od tx hx Past Psychological History: No Psychological Hx Reported Smoking Status: Current some day smoker Past Alcohol Use History: Occasional Additional Past Alcohol Use History / Comment(s): marijuana Past Drug Use History: Marijuana Medications and Allergies Home Medications Medication Instructions Recorded Confirmed Type Acetaminophen Tab [Tylenol Tab] 1,000 mg PO Q6HR PRN #30 tablet 08/31/22 09/03/22 Rx Ibuprofen [Motrin] 600 mg PO Q8HR PRN #30 tab 08/31/22 09/03/22 Rx Simethicone [Gas-X] 125 mg PO AC-TID PRN #20 capsule 08/31/22 09/03/22 Rx oxyCODONE-APAP 7.5-325MG [Percocet 1 tab PO Q6HR PRN 3 Days #12 tab 08/31/22 09/03/22 Rx 7.5-325 mg] Allergies Allergy/AdvReac Type Severity Reaction Status Date / Time No Known Allergies Allergy Verified 09/03/22 07:07 Physical Exam Vitals: Vital Signs Temp Pulse Pulse Pulse Resp BP BP 09/05/22 09:00 112 H 18 93/60 09/05/22 08:00 99.9 F H 115 H 18 108/67 09/05/22 07:46 09/05/22 07:41 09/05/22 07:00 118 H 19 103/64 09/05/22 06:15 09/05/22 06:00 101 F H 115 H 19 99/67 09/05/22 05:00 117 H 21 107/67 09/05/22 04:00 100.5 F H 108 H 19 100/69 09/05/22 03:30 09/05/22 03:01 115 H 20 132/85 09/05/22 02:00 110 H 20 122/81 09/05/22 01:00 116 H 23 122/83 09/05/22 00:10 09/05/22 00:00 100.3 F H 121 H 20 163/110 09/04/22 23:47 09/04/22 23:43 09/04/22 18:00 113 H 16 121/82 09/04/22 17:15 98.8 F 09/04/22 15:16 101.1 F H 125 H 20 120/87 09/04/22 12:00 99 F 131 H 16 126/79 Pulse Ox FiO2 09/05/22 09:00 98 09/05/22 08:00 97 50 09/05/22 07:46 50 09/05/22 07:41 40 09/05/22 07:00 98 09/05/22 06:15 40 09/05/22 06:00 100 09/05/22 05:00 100 09/05/22 04:00 100 50 09/05/22 03:30 50 09/05/22 03:01 99 09/05/22 02:00 100 09/05/22 01:00 100 09/05/22 00:10 60 09/05/22 00:00 100 100 09/04/22 23:47 100 09/04/22 23:43 100 09/04/22 18:00 95 09/04/22 17:15 06/08/23 15:16 96 09/04/22 12:00 96 Intake and Output 09/04/22 09/05/22 09/05/22 22:59 06:59 14:59 Intake Total 4100 923.470 300 Output Total 100 1575 415 Balance 4000 -651.530 -115 Intake: IV 4100 700 300 Sodium Chloride 0.9% 1, 700 300 000 ml @ 100 mls/hr IV . Q10H [facility] Rx#:[id number] Intake, IV Titration 223.470 Amount propofoL 1,000 mg In 223.470 Empty Bag 1 bag @ 15 MCG/ KG/MIN 8.695 mls/hr IV . [id number] VERA Rx#:[id number] Output: Gastric Drainage 700 250 Drainage 130 20 Left Lower Abdomen 130 20 Urine 745 145 Estimated Blood Loss 100 Other: Voiding Method Indwelling Catheter Indwelling Catheter Weight 105.7 kg Constitutional: No fever, no chills. No weakness, fatigue or lethargy. EENT: No headache. No dizziness. Lungs: No shortness of breath, cough, no sputum production. No wheezing. Cardiovascular: No chest pain, no lower extremity edema. No palpitations. No paroxysmal nocturnal dyspnea. No orthopnea. No lightheadedness or dizziness. No syncopal episodes. Abdominal: Reports abdominal discomfort, reports abdominal bloating No nausea, vomiting. Genitourinary: No dysuria.. No urinary retention. Musculoskeletal: No myalgias. No muscle weakness, no frequent falls. No back pain. No neck pain. Integumentary: No wounds. No rash. No unusual bruising. Neurologic: Unable to evaluate, patient is intubated Results CBC & Chem 7: 09/05/22 03:57 09/05/22 03:57 Labs: Abnormal Lab Results - Last 24 Hours (Table) 09/04/22 09/04/22 09/04/22 Range/Units 09:24 09:24 23:32 RBC 4.08 L (4.30-5.90) m/uL Hgb 11.4 L (13.0-17.5) gm/dL Hct 34.9 L (39.0-53.0) % Neutrophils # 9.0 H (1.3-7.7) k/uL Lymphocytes # 0.4 L (1.0-4.8) k/uL ABG pO2 (83-108) mmHg ABG Total CO2 (19-24) mmol/L ABG O2 Saturation (94-97) % Chloride (98-107) mmol/L BUN 23 H (9-20) mg/dL Creatinine 1.32 H (0.66-1.25) mg/dL Glucose 126 H (74-99) mg/dL POC Glucose (mg/dL) 120 H (70-110) mg/dL Calcium (8.4-10.2) mg/dL Urine Protein (Negative) Urine Ketones (Negative) 09/05/22 09/05/22 09/05/22 Range/Units 00:07 00:52 00:52 RBC 3.81 L (4.30-5.90) m/uL Hgb 10.4 L (13.0-17.5) gm/dL Hct 32.6 L (39.0-53.0) % Neutrophils # (1.3-7.7) k/uL Lymphocytes # 0.4 L (1.0-4.8) k/uL ABG pO2 279 H (83-108) mmHg ABG Total CO2 26 H (19-24) mmol/L ABG O2 Saturation 99.9 H (94-97) % Chloride 109 H (98-107) mmol/L BUN 24 H (9-20) mg/dL Creatinine (0.66-1.25) mg/dL Glucose 121 H (74-99) mg/dL POC Glucose (mg/dL) (70-110) mg/dL Calcium 7.6 L (8.4-10.2) mg/dL Urine Protein (Negative) Urine Ketones (Negative) 09/05/22 09/05/22 09/05/22 Range/Units 01:00 03:57 03:57 RBC 3.78 L (4.30-5.90) m/uL Hgb 10.4 L (13.0-17.5) gm/dL Hct 31.9 L (39.0-53.0) % Neutrophils # (1.3-7.7) k/uL Lymphocytes # 0.4 L (1.0-4.8) k/uL ABG pO2 (83-108) mmHg ABG Total CO2 (19-24) mmol/L ABG O2 Saturation (94-97) % Chloride 108 H (98-107) mmol/L BUN 23 H (9-20) mg/dL Creatinine 1.36 H (0.66-1.25) mg/dL Glucose 120 H (74-99) mg/dL POC Glucose (mg/dL) (70-110) mg/dL Calcium 7.6 L (8.4-10.2) mg/dL Urine Protein Trace H (Negative) Urine Ketones Trace H (Negative) 09/05/22 09/05/22 Range/Units 06:11 06:35 RBC (4.30-5.90) m/uL Hgb (13.0-17.5) gm/dL Hct (39.0-53.0) % Neutrophils # (1.3-7.7) k/uL Lymphocytes # (1.0-4.8) k/uL ABG pO2 179 H (83-108) mmHg ABG Total CO2 26 H (19-24) mmol/L ABG O2 Saturation 99.7 H (94-97) % Chloride (98-107) mmol/L BUN (9-20) mg/dL Creatinine (0.66-1.25) mg/dL Glucose (74-99) mg/dL POC Glucose (mg/dL) 134 H (70-110) mg/dL Calcium (8.4-10.2) mg/dL Urine Protein (Negative) Urine Ketones (Negative) Assessment and Plan Assessment: Sinus tachycardia -- Start patient on low-dose beta igor with Lopressor 12.5 mg twice daily -- Obtain 2-D echocardiogram and Doppler study to assess cardiac structure and function - Obtain TSH Lactic acidosis and Sepsis/ intra-abdominal - Intra-abdominal abscess status post explorative laparotomy and further colon resection and drainage of abscess with lysis of adhesions -- Colon cancer status post initial partial colectomy on 08/29/2022 - Patient remains on IV Zosyn 3.375 g IV every 8 hours with IV vancomycin with pharmacy dosing service Acute kidney injury -nonoliguric ischemic ATN from hypotension and sepsis. Renal function is improving. UA is quite benign --Continue with IV fluids --Monitor vancomycin levels closely -- Avoid any other nephrotoxic agents. Recent right hemicolectomy for cecal colon cancer --Colon cancer status post initial partial colectomy on 08/29/2022 Sarcoidosis with asthma DVT prophylaxis; SCDs/subcu heparin CODE STATUS; full code
--- NOTE | 2022-09-05 14:47 | P.CNPUL ---
History of Present Illness Consult date: 09/05/22 Requesting physician: Sallie Oconnor Reason for consult: other (ICU management) Chief complaint: Abdominal pain History of present illness: This is a 52-year-old -Nepalese male with history of colon cancer, status post right hemicolectomy for cecal colon cancer on 08/29/2022. Patient was discharged uneventfully on Percocet and Motrin for pain control. Patient was readmitted on 09/03/2022, he was mostly admitted with abdominal pain, distention, nausea and vomiting which started a few days prior to his admission. Patient was seen by surgery on consultation, and he was found to have acute pneumoperitoneum. Yesterday, the patient underwent robotic-assisted laparoscopic extensive lysis of adhesions open exploratory laparotomy with right hemicolectomy and primary anastomosis drainage of abdominal abscess abdominal peritoneal lavage, Margarita spent of a SARAI drain in the pelvis and placement of the incisional wound VAC system. I was notified about this patient from Dr. Moeller yesterday, and considering his abdominal sepsis presentation considering his surgical findings considering the patient was not extubated postoperatively, we admitted the patient to the ICU, manage his ventilator overnight, and I'm evaluating the patient today on consultation. Patient had a relatively uneventful night, did not require any pressors, he did receive fluids and he seems to be hemodynamically stable, remains on mechanical ventilation. His ventilator settings at this point are assist control rate of 18 tidal volume 500 FiO2 40% and PEEP of 5 recent ABG showed a pO2 of 79 pCO2 39 pH of 7.42 patient is on vancomycin and Zosyn for his abdominal sepsis he is on propofol at 65 mcg/kg/m he has good urine output roughly 30-50 mL per hour. Patient has a nasogastric tube applied to suction and he has a wound VAC. He also has a SARAI drain noted. Patient is sedated and calm, however I would recommend a trial of sedation interruption and possibly weaning parameters, if tolerated may consider further weaning and extubation today. Labs today showed relatively normal CBC WBC count is 8.6 hemoglobin is 10.4. Elect lites are normal BUN is 23 creatinine 1.36. Review of Systems ROS unobtainable: due to endotracheal tube Past Medical History Past Medical History: Hyperlipidemia Additional Past Medical History / Comment(s): sarcoidosis, polyps removed that were abnormal, small tumor History of Any Multi-Drug Resistant Organisms: None Reported Past Surgical History: No Surgical Hx Reported Additional Past Surgical History / Comment(s): achilles tendon repair, colonscopy, partial colectomy Past Anesthesia/Blood Transfusion Reactions: No Reported Reaction Additional Past Anesthesia/Blood Transfusion Reaction / Comment(s): no blo9od tx hx Past Psychological History: No Psychological Hx Reported Smoking Status: Current some day smoker Past Alcohol Use History: Occasional Additional Past Alcohol Use History / Comment(s): marijuana Past Drug Use History: Marijuana Medications and Allergies Home Medications Medication Instructions Recorded Confirmed Type Acetaminophen Tab [Tylenol Tab] 1,000 mg PO Q6HR PRN #30 tablet 08/31/22 09/03/22 Rx Ibuprofen [Motrin] 600 mg PO Q8HR PRN #30 tab 08/31/22 09/03/22 Rx Simethicone [Gas-X] 125 mg PO AC-TID PRN #20 capsule 08/31/22 09/03/22 Rx oxyCODONE-APAP 7.5-325MG [Percocet 1 tab PO Q6HR PRN 3 Days #12 tab 08/31/22 09/03/22 Rx 7.5-325 mg] Allergies Allergy/AdvReac Type Severity Reaction Status Date / Time No Known Allergies Allergy Verified 09/03/22 07:07 Physical Exam Vitals: Vital Signs Temp Pulse Pulse Pulse Resp BP BP 09/05/22 14:00 113 H 23 111/74 09/05/22 13:00 112 H 20 112/77 09/05/22 12:00 99.4 F 113 H 22 101/62 09/05/22 11:01 09/05/22 11:00 101.1 F H 114 H 18 112/65 09/05/22 10:00 111 H 20 96/66 09/05/22 09:00 112 H 18 93/60 09/05/22 08:00 99.9 F H 115 H 18 108/67 09/05/22 07:46 09/05/22 07:41 09/05/22 07:00 118 H 19 103/64 09/05/22 06:15 09/05/22 06:00 101 F H 115 H 19 99/67 09/05/22 05:00 117 H 21 107/67 09/05/22 04:00 100.5 F H 108 H 19 100/69 09/05/22 03:30 09/05/22 03:01 115 H 20 132/85 09/05/22 02:00 110 H 20 122/81 09/05/22 01:00 116 H 23 122/83 09/05/22 00:10 09/05/22 00:00 100.3 F H 121 H 20 163/110 09/04/22 23:47 09/04/22 23:43 09/04/22 18:00 113 H 16 121/82 09/04/22 17:15 98.8 F 09/04/22 15:16 101.1 F H 125 H 20 120/87 Pulse Ox FiO2 09/05/22 14:00 96 09/05/22 13:00 97 09/05/22 12:00 95 40 09/05/22 11:01 40 09/05/22 11:00 97 40 09/05/22 10:00 98 09/05/22 09:00 98 09/05/22 08:00 97 50 09/05/22 07:46 50 09/05/22 07:41 40 09/05/22 07:00 98 09/05/22 06:15 40 09/05/22 06:00 100 09/05/22 05:00 100 09/05/22 04:00 100 50 09/05/22 03:30 50 09/05/22 03:01 99 09/05/22 02:00 100 09/05/22 01:00 100 09/05/22 00:10 60 09/05/22 00:00 100 100 09/04/22 23:47 100 09/04/22 23:43 100 09/04/22 18:00 95 09/04/22 17:15 09/04/22 15:16 96 Intake and Output 09/04/22 09/05/22 09/05/22 22:59 06:59 14:59 Intake Total 4100 923.470 934.539 Output Total 100 1575 1135 Balance 4000 -651.530 -200.461 Intake: IV 4100 700 800 Sodium Chloride 0.9% 1, 700 800 000 ml @ 100 mls/hr IV . Q10H [facility] Rx#:[id number] Intake, IV Titration 223.470 134.539 Amount propofoL 1,000 mg In 223.470 134.539 Empty Bag 1 bag @ 15 MCG/ KG/MIN 8.695 mls/hr IV . [id number] [facility] Rx#:[id number] Output: Gastric Drainage 700 600 Drainage 130 60 Left Lower Abdomen 130 60 Urine 745 475 Estimated Blood Loss 100 Other: Voiding Method Indwelling Catheter Indwelling Catheter Weight 105.7 kg Physical Exam: Revealed a 52-year-old male intubated mechanically ventilated sedated, Head: Atraumatic normocephalic. HEENT:[Neck is supple.] [No neck masses.] [No thyromegaly.] [No JVD.] Endotracheal tube and nasogastric tube are intact Chest: [Clear throughout, no crackles, no rhonchi, no wheezes.] Cardiac Exam: [Normal S1 and S2, no S3 gallop, no murmur.] Abdomen: [Soft, nontender, no megaly, no rebound, no guarding, one VAC is noted. Dressing seems to be dry and clean. No bowel sounds. SARAI drain is noted. Extremities: [No clubbing, no edema, no cyanosis.] Neurological Exam: Could not assess, patient is sedated, on propofol. Psychiatric: Could not assess his on propofol. Skin: No rashes Results - Laboratory Findings CBC and BMP: 09/05/22 03:57 09/05/22 03:57 ABG ABG pH 7.42 (7.35-7.45) 09/05/22 06:11 ABG pCO2 39 mmHg (35-45) 09/05/22 06:11 ABG pO2 179 mmHg (83-108) H 09/05/22 06:11 ABG O2 Saturation 99.7 % (94-97) H 09/05/22 06:11 PT/INR, D-dimer PT 11.4 sec (9.0-12.0) 09/03/22 05:29 INR 1.1 (<1.2) 09/03/22 05:29 Abnormal lab findings: Abnormal Labs 09/03/22 09/03/22 09/03/22 05:29 05:29 05:29 WBC 12.5 H RBC Hgb Hct Neutrophils # 11.3 H Lymphocytes # 0.5 L ABG pO2 ABG Total CO2 ABG O2 Saturation Chloride BUN 33 H Creatinine 2.14 H Glucose 152 H POC Glucose (mg/dL) Plasma Lactic Acid Jovanni 3.6 H* Calcium Albumin 3.4 L Lipase 15 L Urine Protein Urine Ketones 09/03/22 09/04/22 09/04/22 08:00 09:24 09:24 WBC RBC 4.08 L Hgb 11.4 L Hct 34.9 L Neutrophils # 9.0 H Lymphocytes # 0.4 L ABG pO2 ABG Total CO2 ABG O2 Saturation Chloride BUN 23 H Creatinine 1.32 H Glucose 126 H POC Glucose (mg/dL) Plasma Lactic Acid Jovanni 3.1 H* Calcium Albumin Lipase Urine Protein Urine Ketones 09/04/22 09/05/22 09/05/22 23:32 00:07 00:52 WBC RBC 3.81 L Hgb 10.4 L Hct 32.6 L Neutrophils # Lymphocytes # 0.4 L ABG pO2 279 H ABG Total CO2 26 H ABG O2 Saturation 99.9 H Chloride BUN Creatinine Glucose POC Glucose (mg/dL) 120 H Plasma Lactic Acid Jovanni Calcium Albumin Lipase Urine Protein Urine Ketones 09/05/22 09/05/22 09/05/22 00:52 01:00 03:57 WBC RBC Hgb Hct Neutrophils # Lymphocytes # ABG pO2 ABG Total CO2 ABG O2 Saturation Chloride 109 H 108 H BUN 24 H 23 H Creatinine 1.36 H Glucose 121 H 120 H POC Glucose (mg/dL) Plasma Lactic Acid Jovanni Calcium 7.6 L 7.6 L Albumin Lipase Urine Protein Trace H Urine Ketones Trace H 09/05/22 09/05/22 09/05/22 03:57 06:11 06:35 WBC RBC 3.78 L Hgb 10.4 L Hct 31.9 L Neutrophils # Lymphocytes # 0.4 L ABG pO2 179 H ABG Total CO2 26 H ABG O2 Saturation 99.7 H Chloride BUN Creatinine Glucose POC Glucose (mg/dL) 134 H Plasma Lactic Acid Jovanni Calcium Albumin Lipase Urine Protein Urine Ketones 09/05/22 11:58 WBC RBC Hgb Hct Neutrophils # Lymphocytes # ABG pO2 ABG Total CO2 ABG O2 Saturation Chloride BUN Creatinine Glucose POC Glucose (mg/dL) 114 H Plasma Lactic Acid Jovanni Calcium Albumin Lipase Urine Protein Urine Ketones - Diagnostic Findings Chest x-ray: image reviewed (Chest x-ray showed mostly small bilateral pleural effusions and bibasilar atelectasis.) Assessment and Plan Assessment: Impression: Acute pneumoperitoneum, secondary to perforated colonic diverticulum and transverse colon Severe abdominal sepsis History of colon cancer status post resection Acute kidney injury Acute lactic acidosis secondary to sepsis Intra-abdominal abscess Abdominal ascites History of sarcoidosis Status post robotic-assisted laparoscopy with extensive lysis of adhesions, right hemicolectomy and primary anastomosis and drainage of abdominal abscess abdominal peritoneal lavage and placement of SARAI drain as well as incisional wound VAC system postoperative day #1 Sinus tachycardia secondary to sepsis Recommendation: Will continue present supportive care measures Will likely awaken the patient, hold sedation, will likely extubate today if weaning parameters are appropriate and if the patient does while off sedation. In the meantime continue antibiotics Continue nasogastric tube to suction Continue GI and DVT prophylaxis Consider TPN/interstitial support continue IV fluid and monitor electrolytes, monitor renal profile, avoid nephrotoxic agents Continue to monitor in the ICU Patient is critically ill, Critical care time is over 50 minutes We'll continue to follow Time with Patient: Greater than 30
[2022-09-05 17:59] LABS: Glucose,Whole Blood 98 mg/dL (70-110)
[2022-09-05] MEDS ORDERED: ACETAMINOPHEN IV (For NPO) 1,000 MG in EMPTY BAG 1 BAG IVPB PRN (20:24)
--- NOTE | 2022-09-05 22:21 | P.CONS ---
History of Present Illness - Reason for Consult Consult date: 09/05/22 Sepsis ileus Requesting physician: Laurie Sesay - Chief Complaint Abdominal pain x few days - History of Present Illness Patient is a 52-year-old -Slovak male with a past medical history of interval right hemicolectomy for cecal colon cancer on 08/29/2022 patient was subsequent discharged home presenting back to the hospital on 09/03/2022 for increased abdominal pain and distention patient on presentation to the hospital did have a fever of 101.2 degrees following height and continued to have a fever over the next 2 days patient was tachycardic did have a white count 12.5 on admission BUN/creatinine mildly elevated patient did have a CT of abdominal pelvis oral nonspecific bowel gas pattern combination of ileus and a partial obstruction suspected free air noted which is nonspecific keeping in mind his recent surgery patient was taken to the OR last night patient was noticed to be perforated colonic diverticula in this patient status post open expiratory laparotomy laparoscopic extensive lysis of adhesion drainage of intra-abdominal abscess and peritoneal lavage patient was started on Zosyn and vancomycin infectious was consulted for further management of antibiotic therapy most information has been obtained from review the chart and talking nursing staff the patient is currently debated on the vent patient did have a fever of 101 F this morning and has been tachycardic but not requiring any pressor support per the nursing staff Review of Systems Positive points has been mentioned in HPI complete review could not be obtained because patient is intubated on the vent Past Medical History Past Medical History: Hyperlipidemia Additional Past Medical History / Comment(s): sarcoidosis, polyps removed that were abnormal, small tumor History of Any Multi-Drug Resistant Organisms: None Reported Past Surgical History: No Surgical Hx Reported Additional Past Surgical History / Comment(s): achilles tendon repair, colonscopy, partial colectomy Past Anesthesia/Blood Transfusion Reactions: No Reported Reaction Additional Past Anesthesia/Blood Transfusion Reaction / Comm: no blo9od tx hx Past Psychological History: No Psychological Hx Reported Smoking Status: Current some day smoker Past Alcohol Use History: Occasional Additional Past Alcohol Use History / Comment(s): marijuana Past Drug Use History: Marijuana Medications and Allergies Home Medications Medication Instructions Recorded Confirmed Type Acetaminophen Tab [Tylenol Tab] 1,000 mg PO Q6HR PRN #30 tablet 08/31/22 09/03/22 Rx Ibuprofen [Motrin] 600 mg PO Q8HR PRN #30 tab 08/31/22 09/03/22 Rx Simethicone [Gas-X] 125 mg PO AC-TID PRN #20 capsule 08/31/22 09/03/22 Rx oxyCODONE-APAP 7.5-325MG [Percocet 1 tab PO Q6HR PRN 3 Days #12 tab 08/31/22 09/03/22 Rx 7.5-325 mg] Allergies Allergy/AdvReac Type Severity Reaction Status Date / Time No Known Allergies Allergy Verified 09/03/22 07:07 Physical Exam Vitals: Vital Signs Temp Pulse Pulse Pulse Resp BP BP 09/05/22 09:00 112 H 18 93/60 09/05/22 08:00 99.9 F H 115 H 18 108/67 09/05/22 07:46 09/05/22 07:41 09/05/22 07:00 118 H 19 103/64 09/05/22 06:15 09/05/22 06:00 101 F H 115 H 19 99/67 09/05/22 05:00 117 H 21 107/67 09/05/22 04:00 100.5 F H 108 H 19 100/69 09/05/22 03:30 09/05/22 03:01 115 H 20 132/85 09/05/22 02:00 110 H 20 122/81 09/05/22 01:00 116 H 23 122/83 09/05/22 00:10 09/05/22 00:00 100.3 F H 121 H 20 163/110 09/04/22 23:47 09/04/22 23:43 09/04/22 18:00 113 H 16 121/82 09/04/22 17:15 98.8 F 09/04/22 15:16 101.1 F H 125 H 20 120/87 09/04/22 12:00 99 F 131 H 16 126/79 Pulse Ox FiO2 09/05/22 09:00 98 09/05/22 08:00 97 50 09/05/22 07:46 50 09/05/22 07:41 40 09/05/22 07:00 98 09/05/22 06:15 40 09/05/22 06:00 100 09/05/22 05:00 100 09/05/22 04:00 100 50 09/05/22 03:30 50 09/05/22 03:01 99 09/05/22 02:00 100 09/05/22 01:00 100 09/05/22 00:10 60 09/05/22 00:00 100 100 09/04/22 23:47 100 09/04/22 23:43 100 09/04/22 18:00 95 09/04/22 17:15 09/04/22 15:16 96 09/04/22 12:00 96 Intake and Output 09/04/22 09/05/22 09/05/22 22:59 06:59 14:59 Intake Total 4100 923.470 300 Output Total 100 1575 415 Balance 4000 -651.530 -115 Intake: IV 4100 700 300 Sodium Chloride 0.9% 1, 700 300 000 ml @ 100 mls/hr IV . Q10H [facility] Rx#:[id number] Intake, IV Titration 223.470 Amount propofoL 1,000 mg In 223.470 Empty Bag 1 bag @ 15 MCG/ KG/MIN 8.695 mls/hr IV . [id number] [facility] Rx#:[id number] Output: Gastric Drainage 700 250 Drainage 130 20 Left Lower Abdomen 130 20 Urine 745 145 Estimated Blood Loss 100 Other: Voiding Method Indwelling Catheter Indwelling Catheter Weight 105.7 kg GENERAL DESCRIPTION: Middle-aged male intubated on the vent HEENT: Shows Pallor , no scleral icterus. Oral mucous membrane is dry. NECK: Trachea central, no thyromegaly. LUNGS: Unlabored breathing. Decreased breath sounds at the base HEART: S1, S2, regular rate and rhythm. No loud murmur ABDOMEN: Soft, abdominal incision is intact EXTREMITIES: No edema of feet. SKIN: No rash, no masses palpable. NEUROLOGICAL: The patient is sedated on the vent Results CBC & Chem 7: 09/05/22 03:57 09/05/22 03:57 Labs: Abnormal Lab Results - Last 24 Hours (Table) 09/04/22 09/05/22 09/05/22 Range/Units 23:32 00:07 00:52 RBC 3.81 L (4.30-5.90) m/uL Hgb 10.4 L (13.0-17.5) gm/dL Hct 32.6 L (39.0-53.0) % Lymphocytes # 0.4 L (1.0-4.8) k/uL ABG pO2 279 H (83-108) mmHg ABG Total CO2 26 H (19-24) mmol/L ABG O2 Saturation 99.9 H (94-97) % Chloride (98-107) mmol/L BUN (9-20) mg/dL Creatinine (0.66-1.25) mg/dL Glucose (74-99) mg/dL POC Glucose (mg/dL) 120 H (70-110) mg/dL Calcium (8.4-10.2) mg/dL Urine Protein (Negative) Urine Ketones (Negative) 09/05/22 09/05/22 09/05/22 Range/Units 00:52 01:00 03:57 RBC (4.30-5.90) m/uL Hgb (13.0-17.5) gm/dL Hct (39.0-53.0) % Lymphocytes # (1.0-4.8) k/uL ABG pO2 (83-108) mmHg ABG Total CO2 (19-24) mmol/L ABG O2 Saturation (94-97) % Chloride 109 H 108 H (98-107) mmol/L BUN 24 H 23 H (9-20) mg/dL Creatinine 1.36 H (0.66-1.25) mg/dL Glucose 121 H 120 H (74-99) mg/dL POC Glucose (mg/dL) (70-110) mg/dL Calcium 7.6 L 7.6 L (8.4-10.2) mg/dL Urine Protein Trace H (Negative) Urine Ketones Trace H (Negative) 09/05/22 09/05/22 09/05/22 Range/Units 03:57 06:11 06:35 RBC 3.78 L (4.30-5.90) m/uL Hgb 10.4 L (13.0-17.5) gm/dL Hct 31.9 L (39.0-53.0) % Lymphocytes # 0.4 L (1.0-4.8) k/uL ABG pO2 179 H (83-108) mmHg ABG Total CO2 26 H (19-24) mmol/L ABG O2 Saturation 99.7 H (94-97) % Chloride (98-107) mmol/L BUN (9-20) mg/dL Creatinine (0.66-1.25) mg/dL Glucose (74-99) mg/dL POC Glucose (mg/dL) 134 H (70-110) mg/dL Calcium (8.4-10.2) mg/dL Urine Protein (Negative) Urine Ketones (Negative) Assessment and Plan Plan: 1patient with sepsis in this patient who did have a fever tachycardia elevated white count source is intra-abdominal in this patient with evidence of colonic diverticular perforation intra-abdominal abscess status post laparotomy drainage of the abscess and primary anastomosis will need to cover for enteric gram- negative the likely pathogen less likely gram-positive 2-patient to continue the Zosyn 3.375 g every 8 however discontinue vancomycin to decrease risk of nephrotoxicity We will follow on clinical condition and cultures to further adjust medication if needed Thank you for this consultation we will follow the patient along with you Time with Patient: Greater than 30
[2022-09-06 00:25] LABS: Glucose,Whole Blood 93 mg/dL (70-110)
--- NOTE | 2022-09-06 01:10 | P.PN ---
Subjective Progress Note Date: 09/05/22 CHIEF COMPLAINT: Pneumoperitoneum, abdominal pain HISTORY OF PRESENT ILLNESS: The patient is a 52-year-old male status post right hemicolectomy for colon cancer 08/29/2022. He was discharged from the hospital without sequelae 08/31/2022 and returned to the hospital 09/03/2022 was developing abdominal pain, tachycardia, fevers with pneumoperitoneum. He was taken back to the operating room with features of an intact anastomosis with new perforated transverse colon diverticulum. He is status post exploratory laparotomy, lysis of adhesions, evacuation of intra-abdominal abscess, right hemicolectomy for resection of perforated transverse colon diverticulum. He is extubated in stable condition. He reports mild improvement of his pain. Moderate output of nasogastric tube, bilious to be expected. He is alert. No bowel movement. No flatus. ROS: Has fevers, T-max 101.3F . No chills. No new chest pain. PHYSICAL EXAM: VITAL SIGNS: Reviewed CONSTITUTIONAL: Well developed and in no acute distress. EYES: Conjuctivae without sclera icterus. Extraocular movements grossly intact. HEAD, EARS, NOSE, THROAT: Moist buccal mucosa. Head is atraumatic, normocephalic. Hears conversational speech. Nasogastric tube intact. RESPIRATORY:abored breathing CARDIOVASCULAR: Palpable 2+ radial pulses. Tachycardic. ABDOMEN: Midline incision wound VAC intact. SARAI serosanguineous. Nonpurulent. MUSCULOSKELETAL: No gross deformity of the lower extremities noted. No clubbing. No cyanosis. SKIN: Good skin turgor. Well perfused. NEUROLOGIC: Cranial nerves II through XII grossly intact. No focal or lateralizing signs. PSYCH: Appropriate affect. Alert and oriented to person, place and time. : Madonna dark urine with rivero CLINICAL LABS: Reviewed. WBC, normal 7.7 to 8.6, on admission 12.6. Hemoglobin, 10.4 anemia after over 4 L total saline, dilution. Creatinine elevated on admission 2.16, acute renal failure, decreased to 1.36. Creatinine, historical baseline, 1.15 STUDIES: Abdominal x-ray 09/05/2022 demonstrates results free air. Right pleural effusion. This is my independent interpretation. ASSESSMENT: 1. Pneumoperitoneum due to perforated diverticulum 2. Tachycardia with fevers consistent with sepsis 3. Acute kidney injury, failure due to severe sepsis 4. Colon cancer status post resection PLAN: 1. Continue antibiotics, Zosyn. Infectious disease management obtained 2. Do not start oral feeds or diet. Will need complete bowel rest. 3. Continue ICU management. 4. Continue Rivero catheter for accurate input and outputs 5. Monitor hemoglobin Objective - Vital Signs Vital signs: Vital Signs Temp 101.3 F H 09/05/22 20:00 Pulse 112 H 09/05/22 22:00 Resp 15 09/05/22 22:00 BP 120/78 09/05/22 22:00 Pulse Ox 97 09/05/22 22:00 FiO2 40 09/05/22 12:00 Intake & Output 09/05/22 09/05/22 09/06/22 06:59 18:59 06:59 Intake Total 4423.470 1334.539 400 Output Total 1675 1410 565 Balance 2748.470 -75.461 -165 Weight 105.7 kg Intake: IV 4200 1200 400 Sodium Chloride 0.9% 1, 700 1200 400 000 ml @ 100 mls/hr IV . Q10H [facility] Rx#:[id number] Intake, IV Titration 223.470 134.539 Amount propofoL 1,000 mg In 223.470 134.539 Empty Bag 1 bag @ 15 MCG/ KG/MIN 8.695 mls/hr IV . [id number] [facility] Rx#:[id number] Output: Gastric Drainage 700 600 150 Drainage 130 60 30 Left Lower Abdomen 130 60 30 Urine 745 750 385 Estimated Blood Loss 100 Other: Voiding Method Indwelling Catheter Indwelling Catheter Indwelling Catheter - Labs CBC & Chem 7: 09/05/22 03:57 09/05/22 03:57 Labs: Abnormal Lab Results - Last 24 Hours (Table) 09/05/22 09/05/22 09/05/22 Range/Units 00:52 00:52 01:00 RBC 3.81 L (4.30-5.90) m/uL Hgb 10.4 L (13.0-17.5) gm/dL Hct 32.6 L (39.0-53.0) % Lymphocytes # 0.4 L (1.0-4.8) k/uL ABG pO2 (83-108) mmHg ABG Total CO2 (19-24) mmol/L ABG O2 Saturation (94-97) % Chloride 109 H (98-107) mmol/L BUN 24 H (9-20) mg/dL Creatinine (0.66-1.25) mg/dL Glucose 121 H (74-99) mg/dL POC Glucose (mg/dL) (70-110) mg/dL Calcium 7.6 L (8.4-10.2) mg/dL Urine Protein Trace H (Negative) Urine Ketones Trace H (Negative) 09/05/22 09/05/22 09/05/22 Range/Units 03:57 03:57 06:11 RBC 3.78 L (4.30-5.90) m/uL Hgb 10.4 L (13.0-17.5) gm/dL Hct 31.9 L (39.0-53.0) % Lymphocytes # 0.4 L (1.0-4.8) k/uL ABG pO2 179 H (83-108) mmHg ABG Total CO2 26 H (19-24) mmol/L ABG O2 Saturation 99.7 H (94-97) % Chloride 108 H (98-107) mmol/L BUN 23 H (9-20) mg/dL Creatinine 1.36 H (0.66-1.25) mg/dL Glucose 120 H (74-99) mg/dL POC Glucose (mg/dL) (70-110) mg/dL Calcium 7.6 L (8.4-10.2) mg/dL Urine Protein (Negative) Urine Ketones (Negative) 09/05/22 09/05/22 Range/Units 06:35 11:58 RBC (4.30-5.90) m/uL Hgb (13.0-17.5) gm/dL Hct (39.0-53.0) % Lymphocytes # (1.0-4.8) k/uL ABG pO2 (83-108) mmHg ABG Total CO2 (19-24) mmol/L ABG O2 Saturation (94-97) % Chloride (98-107) mmol/L BUN (9-20) mg/dL Creatinine (0.66-1.25) mg/dL Glucose (74-99) mg/dL POC Glucose (mg/dL) 134 H 114 H (70-110) mg/dL Calcium (8.4-10.2) mg/dL Urine Protein (Negative) Urine Ketones (Negative) Microbiology - Last 24 Hours (Table) 09/04/22 19:50 Gram Stain - Preliminary Peritoneal Fluid
[2022-09-06] MEDS: HYDROmorphone 1 MG/ML 1 ML SYRINGE IVP PRN ×6 (03:46→20:27)
[2022-09-06 04:24] LABS: Basophils % (A) 0 %; Eosinophils # (A) 0.1 k/uL (0-0.7); Eosinophils % (A) 1 %; HCT 29.2 % (39.0-53.0); HGB 9.6 gm/dL (13.0-17.5); Lymphocytes # (A) 0.5 k/uL (1.0-4.8); Lymphocytes % (A) 4 %; MCH 28.5 pg (25.0-35.0); MCHC 33.1 g/dL (31.0-37.0); MCV 86.2 fL (80.0-100.0); Mean Platelet Volume 8.7; Monocytes # (A) 0.6 k/uL (0-1.0); Monocytes % (A) 6 %; Neutrophils # (A) 10.2 k/uL (1.3-7.7); Neutrophils % (A) 86 %; Platelet Count 265 k/uL (150-450); RBC 3.38 m/uL (4.30-5.90); RDW 14.8 % (11.5-15.5); WBC 11.8 k/uL (3.8-10.6)
[2022-09-06 04:26] LABS: African American GFR (CKD) 87 (>60 ml/min/1.73 sqM); Anion Gap 7 mmol/L; Blood Urea Nitrogen 26 mg/dL (9-20); Calcium 7.8 mg/dL (8.4-10.2); Carbon Dioxide 26 mmol/L (22-30); Chloride 112 mmol/L (98-107); Glucose 90 mg/dL (74-99); Non-African American GFR(CKD) 75 (>60 ml/min/1.73 sqM); Potassium 3.9 mmol/L (3.5-5.1); Sodium 145 mmol/L (137-145)
[2022-09-06] MEDS: METOCLOPRAMIDE 5 MG/ML 2 ML VIAL IVP SCH ×4 (06:56→23:48)
[2022-09-06] MEDS: POTASSIUM CHLORIDE 10 MEQ in WATER FOR INJECTION 1 100ML.BAG IVPB SCH ×2 (06:56→08:22)
[2022-09-06] MEDS: SODIUM CHLORIDE 0.9% 1,000 ML IV SCH ×3 (06:56→21:11)
--- NOTE | 2022-09-06 06:59 | P.PN ---
Progress Note - Text Progress Note Date: 09/06/22 This a 52-year-old male who is status post repair of colonic perforation after right colectomy. Patient has complaints of incisional pain. He feels bloated. On exam vital signs appear stable. NG tube has 1000 mL output last shift. Abdomen is soft distended Prevenae a wound system is in place. Status post repair of colonic perforation with partial colectomy and anastomosis. Patient has significant postoperative ileus. Patiently closely observed. He will only have a few ice chips by mouth.
[2022-09-06] MEDS: PIPERACILLIN-TAZOBACTAM 3.375 GM in SODIUM CHLORIDE 0.9% 100 ML IVPB SCH ×3 (07:00→23:48)
--- NOTE | 2022-09-06 08:57 | P.PN ---
Subjective Patient is seen in follow-up for acute kidney injury. Renal function improving. Nonoliguric. 1.2 L out from NG tube overnight. Receiving IV fluids. Complains of abdominal soreness. Vital signs are stable. General: No acute distress. HEENT: Head exam is unremarkable. NG tube noted. LUNGS: No audible rhonchi or wheezes. HEART: Tachycardic. ABDOMEN: Generalized tenderness. Drains noted. EXTREMITITES: No edema. Objective - Vital Signs Vital signs: Vital Signs Temp 99.9 F H 09/06/22 04:00 Pulse 118 H 09/06/22 07:00 Resp 26 H 09/06/22 07:00 BP 134/86 09/06/22 07:00 Pulse Ox 94 L 09/06/22 07:00 FiO2 40 09/05/22 12:00 Intake & Output 09/05/22 09/06/22 09/06/22 18:59 06:59 18:59 Intake Total 8717.837 1078 100 Output Total 1410 2270 125 Balance -75.461 -1070 -25 Weight 104.2 kg Intake: IV 1200 1200 100 Sodium Chloride 0.9% 1, 1200 1200 100 000 ml @ 100 mls/hr IV . Q10H VERA Rx#:[id number] Intake, IV Titration 134.539 Amount propofoL 1,000 mg In 134.539 Empty Bag 1 bag @ 15 MCG/ KG/MIN 8.695 mls/hr IV . [id number] VERA Rx#:[id number] Output: Gastric Drainage 600 1150 Drainage 60 50 Left Lower Abdomen 60 50 Urine 750 1070 125 Other: Voiding Method Indwelling Catheter Indwelling Catheter - Labs CBC & Chem 7: 09/06/22 03:49 09/06/22 03:49 Labs: Abnormal Lab Results - Last 24 Hours (Table) 09/05/22 09/06/22 09/06/22 Range/Units 11:58 03:49 03:49 WBC 11.8 H (3.8-10.6) k/uL RBC 3.38 L (4.30-5.90) m/uL Hgb 9.6 L (13.0-17.5) gm/dL Hct 29.2 L (39.0-53.0) % Neutrophils # 10.2 H (1.3-7.7) k/uL Lymphocytes # 0.5 L (1.0-4.8) k/uL Chloride 112 H (98-107) mmol/L BUN 26 H (9-20) mg/dL POC Glucose (mg/dL) 114 H (70-110) mg/dL Calcium 7.8 L (8.4-10.2) mg/dL Microbiology - Last 24 Hours (Table) 09/04/22 19:50 Gram Stain - Preliminary Peritoneal Fluid Assessment and Plan Plan: Assessment: 1. Acute kidney injury secondary to ATN secondary to severe sepsis. Creatinine 2.1 on admission and is 1.14 today. Nonoliguric. UA fairly benign. No hydronephrosis noted on CAT scan. 2. Pneumoperitoneum status post lysis of lesions, right hemicolectomy and drainage of intra-abdominal abscess on 09/04/2022. 3. History of colon cancer. 4. Severe sepsis secondary to abdominal abscess. On antibiotics. Plan: Maintain IV fluids. Continue to monitor renal function and urine output. Avoid nephrotoxins.
[2022-09-06] MEDS: HEPARIN SODIUM,PORCINE/PF 5,000 UNIT/0.5 ML SYRINGE SQ SCH ×2 (09:19→21:40)
[2022-09-06] MEDS: SIMETHICONE 80 MG CHEWABLE PO SCH ×4 (09:21→23:49)
[2022-09-06] MEDS: PANTOPRAZOLE 40 MG/10 ML VIAL IV SCH (09:21)
--- NOTE | 2022-09-06 09:45 | P.PN ---
Subjective Progress Note Date: 09/06/22 Principal diagnosis: Intra-abdominal abscess Patient is a 52-year-old male presenting to the hospital with abdominal pain has been diagnosed with an intra-abdominal abscess from perforated diverticulum status post laparotomy and drainage of the abscess. n today's evaluation that is 09/06/2022, patient did have a low-grade fever 100.3F this morning, the patient has been extubated and is breathing comfortably on 2 L nasal cannula oxygen, patient denies having any chest pain occasional cough abdominal pain is currently controlled no vomiting has been reported, patient is hemodynamically stable not requiring pressor support Objective - Vital Signs Vital signs: Vital Signs Temp 99.9 F H 09/06/22 04:00 Pulse 120 H 09/06/22 06:00 Resp 28 H 09/06/22 06:00 BP 128/83 09/06/22 06:00 Pulse Ox 94 L 09/06/22 06:00 FiO2 40 09/05/22 12:00 Intake & Output 09/05/22 09/06/22 09/06/22 18:59 06:59 18:59 Intake Total 3565.075 4275 Output Total 1410 2270 Balance -75.461 -1070 Weight 104.2 kg Intake: IV 1200 1200 Sodium Chloride 0.9% 1, 1200 1200 000 ml @ 100 mls/hr IV . Q10H [facility] Rx#:[id number] Intake, IV Titration 134.539 Amount propofoL 1,000 mg In 134.539 Empty Bag 1 bag @ 15 MCG/ KG/MIN 8.695 mls/hr IV . [id number] VERA Rx#:[id number] Output: Gastric Drainage 600 1150 Drainage 60 50 Left Lower Abdomen 60 50 Urine 750 1070 Other: Voiding Method Indwelling Catheter Indwelling Catheter - Exam GENERAL DESCRIPTION: A middle-age male lying in bed in no distress RESPIRATORY SYSTEM: Unlabored breathing , decreased breath sounds at bases HEART: S1 S2 regular rate and rhythm , ABDOMEN: Soft , mild distention and tenderness EXTREMITIES: No edema feet - Labs CBC & Chem 7: 09/06/22 03:49 09/06/22 03:49 Labs: Abnormal Lab Results - Last 24 Hours (Table) 09/05/22 09/06/22 09/06/22 Range/Units 11:58 03:49 03:49 WBC 11.8 H (3.8-10.6) k/uL RBC 3.38 L (4.30-5.90) m/uL Hgb 9.6 L (13.0-17.5) gm/dL Hct 29.2 L (39.0-53.0) % Neutrophils # 10.2 H (1.3-7.7) k/uL Lymphocytes # 0.5 L (1.0-4.8) k/uL Chloride 112 H (98-107) mmol/L BUN 26 H (9-20) mg/dL POC Glucose (mg/dL) 114 H (70-110) mg/dL Calcium 7.8 L (8.4-10.2) mg/dL Microbiology - Last 24 Hours (Table) 09/04/22 19:50 Gram Stain - Preliminary Peritoneal Fluid Assessment and Plan (1) Intra-abdominal abscess Current Visit: Yes Status: Acute Code(s): K65.1 - PERITONEAL ABSCESS SNOMED Code(s): 51736462 Plan: 1patient with sepsis in this patient who did have a fever tachycardia elevated white count source is intra-abdominal in this patient with evidence of colonic diverticular perforation intra-abdominal abscess status post laparotomy drainage of the abscess and primary anastomosis will need to cover for enteric gram- negative the likely pathogen less likely gram-positive 2-patient to continue the Zosyn 3.375 g every 8 while waiting for the cultures to finalize and monitor clinical course closely Time with Patient: Less than 30
[2022-09-06] MEDS ORDERED: VANCOMYCIN TROUGH DUE 1 EACH MISC MISCELLANE ONE (11:00)
[2022-09-06 12:40] LABS: Magnesium 2.8 mg/dL (1.6-2.3); Phosphorus 2.4 mg/dL (2.5-4.5)
--- NOTE | 2022-09-06 12:47 | P.PN ---
Subjective Progress Note Date: 09/06/22 Principal diagnosis: Abdominal sepsis This is a 52-year-old -[place] male with history of colon cancer, status post right hemicolectomy for cecal colon cancer on 08/29/2022. Patient was discharged uneventfully on Percocet and Motrin for pain control. Patient was readmitted on 09/03/2022, he was mostly admitted with abdominal pain, distention, nausea and vomiting which started a few days prior to his admission. Patient was seen by surgery on consultation, and he was found to have acute pneumoperitoneum. Yesterday, the patient underwent robotic-assisted laparoscopic extensive lysis of adhesions open exploratory laparotomy with right hemicolectomy and primary anastomosis drainage of abdominal abscess abdominal peritoneal lavage, Margarita spent of a SARAI drain in the pelvis and placement of the incisional wound VAC system. I was notified about this patient from Dr. Moeller yesterday, and considering his abdominal sepsis presentation considering his surgical findings considering the patient was not extubated postoperatively, we admitted the patient to the ICU, manage his ventilator overnight, and I'm evaluating the patient today on consultation. Patient had a relatively uneventful night, did not require any pressors, he did receive fluids and he seems to be hemodynamically stable, remains on mechanical ventilation. His ventilator settings at this point are assist control rate of 18 tidal volume 500 FiO2 40% and PEEP of 5 recent ABG showed a pO2 of 79 pCO2 39 pH of 7.42 patient is on vancomycin and Zosyn for his abdominal sepsis he is on propofol at 65 mcg/kg/m he has good urine output roughly 30-50 mL per hour. Patient has a nasogastric tube applied to suction and he has a wound VAC. He also has a SARAI drain noted. Patient is sedated and calm, however I would recommend a trial of sedation interruption and possibly weaning parameters, if tolerated may consider further weaning and extubation today. Labs today showed relatively normal CBC WBC count is 8.6 hemoglobin is 10.4. Elect lites are normal BUN is 23 creatinine 1.36. Reevaluated today on 09/06/2022, patient remains in the ICU, patient was extubated yesterday and he tolerated extubation well over the last 24 hours. He is on 2 L nasal cannula, not in any distress. Continues to have significant nasogastric output. Patient is to be started on TPN today. Doing better than expected overall. Remains on antibiotics for his abdominal sepsis. White count is 11.8 today hemoglobin is 9.6. Elect lites are normal renal profile is normal with a creatinine of 1.14, improving since admission from 2.14 on admission. Patient is compliant with his incentive spirometry and doing a good job with I- S. Objective - Vital Signs Vital signs: Vital Signs Temp 100.3 F H 09/06/22 08:00 Pulse 115 H 09/06/22 11:00 Resp 24 09/06/22 11:00 BP 117/87 09/06/22 11:00 Pulse Ox 96 09/06/22 11:00 FiO2 40 09/05/22 12:00 Intake & Output 09/05/22 09/06/22 09/06/22 18:59 06:59 18:59 Intake Total 4332.812 2839 500 Output Total 1410 2270 750 Balance -75.461 -1070 -250 Weight 104.2 kg 104.2 kg Intake: IV 1200 1200 500 Sodium Chloride 0.9% 1, 1200 1200 500 000 ml @ 100 mls/hr IV . Q10H [facility] Rx#:[id number] Intake, IV Titration 134.539 Amount propofoL 1,000 mg In 134.539 Empty Bag 1 bag @ 15 MCG/ KG/MIN 8.695 mls/hr IV . [id number] [facility] Rx#:[id number] Output: Gastric Drainage 600 1150 150 Drainage 60 50 Left Lower Abdomen 60 50 Urine 750 1070 600 Other: Voiding Method Indwelling Catheter Indwelling Catheter Indwelling Catheter - Exam Physical Exam: Revealed a 52-year-old male in no distress on 2 L nasal cannula Head: Atraumatic, normocephalic. HEENT:[Neck is supple.] [No neck masses.] [No thyromegaly.] [No JVD.] Nasogastric tube is intact, significant output noted from nasogastric tube. Chest: [Clear throughout, no crackles, no rhonchi, no wheezes.] Cardiac Exam: [Normal S1 and S2, no S3 gallop, no murmur.] Abdomen: [Postsurgical, slightly tender, Soft, no megaly, no rebound, no guarding, negative bowel sounds Extremities: [No clubbing, no edema, no cyanosis.] Neurological Exam: [No focal neurologic deficit.] Alert and oriented 3. Psychiatric: Normal mood affect and normal mental status examination. - Labs CBC & Chem 7: 09/06/22 03:49 09/06/22 03:49 Labs: Abnormal Lab Results - Last 24 Hours (Table) 09/06/22 09/06/22 09/06/22 Range/Units 03:49 03:49 12:03 WBC 11.8 H (3.8-10.6) k/uL RBC 3.38 L (4.30-5.90) m/uL Hgb 9.6 L (13.0-17.5) gm/dL Hct 29.2 L (39.0-53.0) % Neutrophils # 10.2 H (1.3-7.7) k/uL Lymphocytes # 0.5 L (1.0-4.8) k/uL Chloride 112 H (98-107) mmol/L BUN 26 H (9-20) mg/dL Calcium 7.8 L (8.4-10.2) mg/dL Phosphorus 2.4 L (2.5-4.5) mg/dL Magnesium 2.8 H (1.6-2.3) mg/dL Microbiology - Last 24 Hours (Table) 09/04/22 19:50 Gram Stain - Preliminary Peritoneal Fluid Assessment and Plan Assessment: Impression: Acute pneumoperitoneum, secondary to perforated colonic diverticulum and transverse colon Severe abdominal sepsis History of colon cancer status post resection Acute kidney injury Acute lactic acidosis secondary to sepsis Intra-abdominal abscess Abdominal ascites History of sarcoidosis Status post robotic-assisted laparoscopy with extensive lysis of adhesions, rig ht hemicolectomy and primary anastomosis and drainage of abdominal abscess abdominal peritoneal lavage and placement of SARAI drain as well as incisional wound VAC system postoperative day #2 Sinus tachycardia secondary to sepsis Recommendation: Will continue present supportive care measures Continue incentive spirometry Continue antibiotics Continue nasogastric tube to suction Continue GI and DVT prophylaxis Nutritional support/TPN Continue to monitor in the ICU for the next 24 hours We'll continue to follow Time with Patient: Less than 30
[2022-09-06] MEDS ORDERED: SODIUM PHOSPHATE 15 MMOL in DEXTROSE 5% IN WATER 250 ML IVPB ONE ×2 (13:45)
[2022-09-06] MEDS ORDERED: MVI, ADULT NO.4 WITH VIT K 10 ML, TRACE (CONC-1ML/DOSE) 1 ML, SODIUM ACETATE 10 MEQ, PO... IV SCH ×7 (15:00)
[2022-09-06 17:44] LABS: Glucose,Whole Blood 100 mg/dL (70-110)
[2022-09-06] MEDS: INSULIN ASPART (NovoLOG) 100 UNIT/ML VIAL SQ SCH ×2 (17:45→23:49)
[2022-09-06] MEDS: ACETAMINOPHEN IV (For NPO) 1,000 MG in EMPTY BAG 1 BAG IVPB PRN (21:04)
[2022-09-06 23:41] LABS: Glucose,Whole Blood 130 mg/dL (70-110)
[2022-09-07] MEDS: HYDROmorphone 1 MG/ML 1 ML SYRINGE IVP PRN ×7 (01:24→23:30)
[2022-09-07 06:09] LABS: ALT 25 U/L (4-49); AST 44 U/L (17-59); African American GFR (CKD) >90 (>60 ml/min/1.73 sqM); Albumin 2.5 g/dL (3.5-5.0); Alkaline Phosphatase 80 U/L (38-126); Anion Gap 5 mmol/L; Blood Urea Nitrogen 21 mg/dL (9-20); Calcium 7.7 mg/dL (8.4-10.2); Carbon Dioxide 27 mmol/L (22-30); Chloride 117 mmol/L (98-107); Glucose 136 mg/dL (74-99); Magnesium 2.7 mg/dL (1.6-2.3); Non-African American GFR(CKD) 83 (>60 ml/min/1.73 sqM); Phosphorus 2.7 mg/dL (2.5-4.5); Potassium 4.1 mmol/L (3.5-5.1); Sodium 149 mmol/L (137-145); Total Bilirubin 0.6 mg/dL (0.2-1.3)
[2022-09-07] MEDS: METOCLOPRAMIDE 5 MG/ML 2 ML VIAL IVP SCH ×3 (06:24→22:19)
[2022-09-07] MEDS: SODIUM CHLORIDE 0.9% 1,000 ML IV SCH (06:25)
[2022-09-07 06:37] LABS: Glucose,Whole Blood 137 mg/dL (70-110)
[2022-09-07] MEDS: INSULIN ASPART (NovoLOG) 100 UNIT/ML VIAL SQ SCH ×4 (07:52→22:20)
[2022-09-07] MEDS: HEPARIN SODIUM,PORCINE/PF 5,000 UNIT/0.5 ML SYRINGE SQ SCH ×2 (08:34→20:09)
[2022-09-07] MEDS: PANTOPRAZOLE 40 MG/10 ML VIAL IV SCH (08:35)
[2022-09-07] MEDS: SIMETHICONE 80 MG CHEWABLE PO SCH ×4 (08:44→23:39)
[2022-09-07] MEDS ORDERED: FAT EMULSION 20% 250 ML in EMPTY BAG 1 BAG IV SCH (09:00)
[2022-09-07] MEDS: ACETAMINOPHEN IV (For NPO) 1,000 MG in EMPTY BAG 1 BAG IVPB PRN (09:16)
[2022-09-07] MEDS: DEXTROSE 5% IN WATER 1,000 ML IV SCH ×2 (09:23→19:00)
[2022-09-07] MEDS: PIPERACILLIN-TAZOBACTAM 3.375 GM in SODIUM CHLORIDE 0.9% 100 ML IVPB SCH ×3 (09:26→23:29)
--- NOTE | 2022-09-07 09:29 | P.PN ---
Progress Note - Text Progress Note Date: 09/07/22 The patient appears a improving. He has had decreased output through his NG tube. He has had some flatus. The intensivists are managing his sodium. On exam vital signs appear stable. Patient is tachycardic with pulse in the 110s. Abdomen soft. Incision dressing is dry. Status post repair of colon perforation. Patient most likely has tachycardia related to sepsis. The patient is improving. We will have his nasogastric tube removed today. He will remain nothing by mouth. We'll teach receive supportive care.
[2022-09-07] MEDS: HYDROmorphone 0.5 MG/0.5 ML SYRINGE IVP PRN ×5 (09:40→22:19)
--- NOTE | 2022-09-07 09:51 | P.PN ---
Subjective Patient is seen in follow-up for acute kidney injury. Renal function improving. Nonoliguric. Receiving IV fluids. Sodium level CXLIX. Requesting a Popsicle. Vital signs are stable. General: No acute distress. HEENT: Head exam is unremarkable. NG tube noted. LUNGS: No audible rhonchi or wheezes. HEART: Regular rate and rhythm. ABDOMEN: Generalized tenderness. Drains noted. EXTREMITITES: No edema. Objective - Vital Signs Vital signs: Vital Signs Temp 100 F H 09/07/22 04:00 Pulse 113 H 09/07/22 07:00 Resp 24 09/07/22 07:00 BP 136/99 09/07/22 07:00 Pulse Ox 97 09/07/22 07:00 FiO2 40 09/05/22 12:00 Intake & Output 09/06/22 09/07/22 09/07/22 18:59 06:59 18:59 Intake Total 1300 1730 130 Output Total 1550 1125 50 Balance -250 605 80 Weight 104.2 kg 105.8 kg Intake: IV 1300 1200 100 Piperacillin-Tazobactam 3 100 .375 gm In Sodium Chloride 0.9% 100 ml @ 25 mls/hr IVPB Q8HR [facility] Rx# :[id number] Sodium Chloride 0.9% 1, 1200 1200 100 000 ml @ 100 mls/hr IV . Q10H [facility] Rx#:[id number] Intake, IV Titration 530 30 Amount ACETAMINOPHEN IV (For NPO 100 ) 1,000 mg In Empty Bag 1 bag @ 400 mls/hr IVPB Q6HR PRN Rx#:[id number] Mvi, Adult No.4 with Vit 330 30 K 10 ml Trace (Conc-1Ml/ Dose) 1 ml Sodium Chloride 4Meq/ml Vial 10 meq Potassium Acetate 30 meq Calcium Gluconate 1 gm Sodium Phosphate 15 mmol In Amino Acids 5 %/ Dextrose 20 % 1,000 ml @ 108 mls/hr IV .BY DURATION VERA Rx#: [id number] Piperacillin-Tazobactam 3 100 .375 gm In Sodium Chloride 0.9% 100 ml @ 25 mls/hr IVPB Q8HR [facility] Rx# :[id number] Output: Gastric Drainage 150 Urine 1400 1125 50 Other: Voiding Method Indwelling Catheter Indwelling Catheter ABP, PAP, CO, CI - Last Documented Arterial Blood Pressure 158/44 - Labs CBC & Chem 7: 09/06/22 03:49 09/07/22 05:43 Labs: Abnormal Lab Results - Last 24 Hours (Table) 09/06/22 09/06/22 09/06/22 Range/Units 12:03 12:03 23:39 Sodium (137-145) mmol/L Chloride (98-107) mmol/L BUN (9-20) mg/dL Glucose (74-99) mg/dL POC Glucose (mg/dL) 130 H (70-110) mg/dL Calcium (8.4-10.2) mg/dL Phosphorus 2.4 L (2.5-4.5) mg/dL Magnesium 2.8 H (1.6-2.3) mg/dL Total Protein (6.3-8.2) g/dL Albumin (3.5-5.0) g/dL Triglycerides 450.00 H (0.00-149.00) mg/dL 09/07/22 09/07/22 Range/Units 05:43 06:35 Sodium 149 H (137-145) mmol/L Chloride 117 H (98-107) mmol/L BUN 21 H (9-20) mg/dL Glucose 136 H (74-99) mg/dL POC Glucose (mg/dL) 137 H (70-110) mg/dL Calcium 7.7 L (8.4-10.2) mg/dL Phosphorus (2.5-4.5) mg/dL Magnesium 2.7 H (1.6-2.3) mg/dL Total Protein 5.0 L (6.3-8.2) g/dL Albumin 2.5 L (3.5-5.0) g/dL Triglycerides (0.00-149.00) mg/dL Microbiology - Last 24 Hours (Table) 09/04/22 19:50 Gram Stain - Preliminary Peritoneal Fluid Body Fluid Culture - Preliminary Gram Neg Bacilli 09/04/22 18:21 Blood Culture - Preliminary Blood Assessment and Plan Plan: Assessment: 1. Acute kidney injury secondary to ATN secondary to severe sepsis. Creatinine 2.1 on admission and is 1.05 today. Nonoliguric. UA fairly benign. No hydronephrosis noted on CAT scan. 2. Pneumoperitoneum status post lysis of lesions, right hemicolectomy and drainage of intra-abdominal abscess on 09/04/2022. 3. History of colon cancer. 4. Severe sepsis secondary to abdominal abscess. On antibiotics. 5. Hypernatremia from the water intake. Plan: Change IV fluids to D5W at 100 mL an hour. Continue to monitor renal function and urine output. Avoid nephrotoxins.
--- NOTE | 2022-09-07 11:10 | P.PN ---
Subjective Progress Note Date: 09/07/22 Principal diagnosis: Abdominal sepsis This is a 52-year-old -[place] male with history of colon cancer, status post right hemicolectomy for cecal colon cancer on 08/29/2022. Patient was discharged uneventfully on Percocet and Motrin for pain control. Patient was readmitted on 09/03/2022, he was mostly admitted with abdominal pain, distention, nausea and vomiting which started a few days prior to his admission. Patient was seen by surgery on consultation, and he was found to have acute pneumoperitoneum. Yesterday, the patient underwent robotic-assisted laparoscopic extensive lysis of adhesions open exploratory laparotomy with right hemicolectomy and primary anastomosis drainage of abdominal abscess abdominal peritoneal lavage, Margarita spent of a SARAI drain in the pelvis and placement of the incisional wound VAC system. I was notified about this patient from Dr. Moeller yesterday, and considering his abdominal sepsis presentation considering his surgical findings considering the patient was not extubated postoperatively, we admitted the patient to the ICU, manage his ventilator overnight, and I'm evaluating the patient today on consultation. Patient had a relatively uneventful night, did not require any pressors, he did receive fluids and he seems to be hemodynamically stable, remains on mechanical ventilation. His ventilator settings at this point are assist control rate of 18 tidal volume 500 FiO2 40% and PEEP of 5 recent ABG showed a pO2 of 79 pCO2 39 pH of 7.42 patient is on vancomycin and Zosyn for his abdominal sepsis he is on propofol at 65 mcg/kg/m he has good urine output roughly 30-50 mL per hour. Patient has a nasogastric tube applied to suction and he has a wound VAC. He also has a SARAI drain noted. Patient is sedated and calm, however I would recommend a trial of sedation interruption and possibly weaning parameters, if tolerated may consider further weaning and extubation today. Labs today showed relatively normal CBC WBC count is 8.6 hemoglobin is 10.4. Elect lites are normal BUN is 23 creatinine 1.36. Reevaluated today on 09/06/2022, patient remains in the ICU, patient was extubated yesterday and he tolerated extubation well over the last 24 hours. He is on 2 L nasal cannula, not in any distress. Continues to have significant nasogastric output. Patient is to be started on TPN today. Doing better than expected overall. Remains on antibiotics for his abdominal sepsis. White count is 11.8 today hemoglobin is 9.6. Elect lites are normal renal profile is normal with a creatinine of 1.14, improving since admission from 2.14 on admission. Patient is compliant with his incentive spirometry and doing a good job with I- S. Reevaluated today on 09/07/2022, patient remains in the ICU, he feels generally weak, denies any shortness of breath, no cough, no wheezing. Continues to have nasogastric tube in place, and he had 1 50 mL of output overnight. Patient on TPN for nutritional support. His sodium was noted to be elevated today, and I recommended switching his IV fluid to D5W at 100 mL per hour. His labs otherwise are unremarkable. Patient is doing well with incentive spirometry, pain is fairly well controlled. Renal profile is normal, WBC count is 11.8 hemoglobin is 9.6 Objective - Vital Signs Vital signs: Vital Signs Temp 100 F H 09/07/22 04:00 Pulse 113 H 09/07/22 07:00 Resp 24 09/07/22 07:00 BP 136/99 09/07/22 07:00 Pulse Ox 97 09/07/22 07:00 FiO2 40 09/05/22 12:00 Intake & Output 09/06/22 09/07/22 09/07/22 18:59 06:59 18:59 Intake Total 1300 1730 130 Output Total 1550 1125 50 Balance -250 605 80 Weight 104.2 kg 105.8 kg Intake: IV 1300 1200 100 Piperacillin-Tazobactam 3 100 .375 gm In Sodium Chloride 0.9% 100 ml @ 25 mls/hr IVPB Q8HR [facility] Rx# :[id number] Sodium Chloride 0.9% 1, 1200 1200 100 000 ml @ 100 mls/hr IV . Q10H [facility] Rx#:[id number] Intake, IV Titration 530 30 Amount ACETAMINOPHEN IV (For NPO 100 ) 1,000 mg In Empty Bag 1 bag @ 400 mls/hr IVPB Q6HR PRN Rx#:[id number] Mvi, Adult No.4 with Vit 330 30 K 10 ml Trace (Conc-1Ml/ Dose) 1 ml Sodium Chloride 4Meq/ml Vial 10 meq Potassium Acetate 30 meq Calcium Gluconate 1 gm Sodium Phosphate 15 mmol In Amino Acids 5 %/ Dextrose 20 % 1,000 ml @ 108 mls/hr IV .BY DURATION VERA Rx#: [id number] Piperacillin-Tazobactam 3 100 .375 gm In Sodium Chloride 0.9% 100 ml @ 25 mls/hr IVPB Q8HR [facility] Rx# :[id number] Output: Gastric Drainage 150 Urine 1400 1125 50 Other: Voiding Method Indwelling Catheter Indwelling Catheter ABP, PAP, CO, CI - Last Documented Arterial Blood Pressure 158/44 - Exam Physical Exam: Revealed a 52-year-old male in no distress on 2 L nasal cannula, O2 saturation 97%. Head: Atraumatic, normocephalic. HEENT:[Neck is supple.] [No neck masses.] [No thyromegaly.] [No JVD.] Nasogastric tube is intact, 1 50 mL of output overnight. Chest: [Clear throughout, no crackles, no rhonchi, no wheezes.] Cardiac Exam: [Normal S1 and S2, no S3 gallop, no murmur.] Abdomen: [Postsurgical, slightly tender, Soft, no megaly, no rebound, no guarding, negative bowel sounds Extremities: [No clubbing, no edema, no cyanosis.] Neurological Exam: [No focal neurologic deficit.] Alert and oriented 3. Psychiatric: Normal mood affect and normal mental status examination. - Labs CBC & Chem 7: 09/06/22 03:49 09/07/22 05:43 Labs: Abnormal Lab Results - Last 24 Hours (Table) 09/06/22 09/06/22 09/06/22 Range/Units 12:03 12:03 23:39 Sodium (137-145) mmol/L Chloride (98-107) mmol/L BUN (9-20) mg/dL Glucose (74-99) mg/dL POC Glucose (mg/dL) 130 H (70-110) mg/dL Calcium (8.4-10.2) mg/dL Phosphorus 2.4 L (2.5-4.5) mg/dL Magnesium 2.8 H (1.6-2.3) mg/dL Total Protein (6.3-8.2) g/dL Albumin (3.5-5.0) g/dL Triglycerides 450.00 H (0.00-149.00) mg/dL 09/07/22 09/07/22 Range/Units 05:43 06:35 Sodium 149 H (137-145) mmol/L Chloride 117 H (98-107) mmol/L BUN 21 H (9-20) mg/dL Glucose 136 H (74-99) mg/dL POC Glucose (mg/dL) 137 H (70-110) mg/dL Calcium 7.7 L (8.4-10.2) mg/dL Phosphorus (2.5-4.5) mg/dL Magnesium 2.7 H (1.6-2.3) mg/dL Total Protein 5.0 L (6.3-8.2) g/dL Albumin 2.5 L (3.5-5.0) g/dL Triglycerides (0.00-149.00) mg/dL Microbiology - Last 24 Hours (Table) 09/04/22 19:50 Gram Stain - Preliminary Peritoneal Fluid Body Fluid Culture - Preliminary Gram Neg Bacilli 09/04/22 18:21 Blood Culture - Preliminary Blood Assessment and Plan Assessment: Impression: Acute pneumoperitoneum, secondary to perforated colonic diverticulum and transverse colon Severe abdominal sepsis History of colon cancer status post resection Acute kidney injury Acute lactic acidosis secondary to sepsis Intra-abdominal abscess Abdominal ascites History of sarcoidosis Status post robotic-assisted laparoscopy with extensive lysis of adhesions, right hemicolectomy and primary anastomosis and drainage of abdominal abscess abdominal peritoneal lavage and placement of SARAI drain as well as incisional wound VAC system postoperative day #3 Sinus tachycardia secondary to sepsis Acute Hypernatremia, suspect free water deficit. Recommendation: Change IV fluid to D5W at 100 mL per hour Will continue present supportive care measures Continue incentive spirometry Continue antibiotics Continue nasogastric tube to suction Continue GI and DVT prophylaxis Nutritional support/TPN Will transfer the patient out of the ICU in the next 24 hours We'll continue to follow Time with Patient: Less than 30
--- NOTE | 2022-09-07 12:49 | P.PN ---
Subjective Progress Note Date: 09/06/22 52-year-old male who presents with initial ileus versus bowel obstruction and pneumoperitoneum from recent surgery. Patient had a nasogastric tube and reported he felt well to want to go home. Patient was encouraged to stay with continued observation. He developed fevers and persistently elevated supra ventricular tachycardia heart rate of 140s with worsening abdominal distention. Clinically, patient reported he wasn't feeling well. Emergent exploratory procedure-- Robotic-assisted da Philipp Xi laparoscopic extensive lysis of adhesions; Open exploratory laparotomy with right hemicolectomy and primary anastomosis; Drainage of intra-abdominal abscess; Abdominal peritoneal lavage Patient has continued to have sinus tachycardia with heart rates in the 100-120 range. He was started on low-dose metoprolol however currently intubated and sedated and not taking oral pills. FiO2 40% and appears comfortable on ventilator. Respiratory therapies at bedside and preparing to extubate patient 09/06/2022 patient remains in the ICU, patient was extubated yesterday and he tolerated extubation well over the last 24 hours. He is on 2 L nasal cannula, not in any distress. Continues to have significant nasogastric output. Patient is to be started on TPN today. Doing better than expected overall. Remains on antibiotics for his abdominal sepsis. White count is 11.8 today hemoglobin is 9.6. Elect lites are normal renal profile is normal with a creatinine of 1.14, improving since admission from 2.14 on admission. Patient is compliant with his incentive spirometry. Intensive care team on board and recommending to continue incentive spirometry, antibiotics, NG tube to suction, nutritional support with TPN Patient is recommended to be monitored in ICU for another 24 hours Objective - Vital Signs Vital signs: Vital Signs Temp 100.3 F H 09/06/22 08:00 Pulse 115 H 09/06/22 11:00 Resp 24 09/06/22 11:00 BP 117/87 09/06/22 11:00 Pulse Ox 96 09/06/22 11:00 FiO2 40 09/05/22 12:00 Intake & Output 09/05/22 09/06/22 09/06/22 18:59 06:59 18:59 Intake Total 0498.469 0538 500 Output Total 1410 2270 750 Balance -75.461 -1070 -250 Weight 104.2 kg 104.2 kg Intake: IV 1200 1200 500 Sodium Chloride 0.9% 1, 1200 1200 500 000 ml @ 100 mls/hr IV . Q10H [facility] Rx#:[id number] Intake, IV Titration 134.539 Amount propofoL 1,000 mg In 134.539 Empty Bag 1 bag @ 15 MCG/ KG/MIN 8.695 mls/hr IV . [id number] [facility] Rx#:[id number] Output: Gastric Drainage 600 1150 150 Drainage 60 50 Left Lower Abdomen 60 50 Urine 750 1070 600 Other: Voiding Method Indwelling Catheter Indwelling Catheter Indwelling Catheter - Exam PHYSICAL EXAMINATION: GENERAL: The patient is alert and oriented x3, not in any acute distress. Well developed, well nourished. HEENT: Pupils are round and equally reacting to light. EOMI. No scleral icterus. No conjunctival pallor. Normocephalic, atraumatic. No pharyngeal erythema. No thyromegaly. CARDIOVASCULAR: S1 and S2 present. No murmurs, rubs, or gallops. PULMONARY: Chest is clear to auscultation, no wheezing or crackles. ABDOMEN: Soft, nontender, nondistended, normoactive bowel sounds. No palpable organomegaly. MUSCULOSKELETAL: No joint swelling or deformity. EXTREMITIES: No cyanosis, clubbing, or pedal edema. NEUROLOGICAL: Gross neurological examination did not reveal any focal deficits. SKIN: No rashes. - Labs CBC & Chem 7: 09/06/22 03:49 09/07/22 05:43 Labs: Abnormal Lab Results - Last 24 Hours (Table) 09/06/22 09/06/22 Range/Units 03:49 03:49 WBC 11.8 H (3.8-10.6) k/uL RBC 3.38 L (4.30-5.90) m/uL Hgb 9.6 L (13.0-17.5) gm/dL Hct 29.2 L (39.0-53.0) % Neutrophils # 10.2 H (1.3-7.7) k/uL Lymphocytes # 0.5 L (1.0-4.8) k/uL Chloride 112 H (98-107) mmol/L BUN 26 H (9-20) mg/dL Calcium 7.8 L (8.4-10.2) mg/dL Microbiology - Last 24 Hours (Table) 09/04/22 19:50 Gram Stain - Preliminary Peritoneal Fluid Assessment and Plan Assessment: Sinus tachycardia -- Start patient on low-dose beta igor with Lopressor 12.5 mg twice daily -- Obtain 2-D echocardiogram and Doppler study to assess cardiac structure and function - Obtain TSH Lactic acidosis and Sepsis/ intra-abdominal - Intra-abdominal abscess status post explorative laparotomy and further colon resection and drainage of abscess with lysis of adhesions -- Colon cancer status post initial partial colectomy on 08/29/2022 - Patient remains on IV Zosyn 3.375 g IV every 8 hours with IV vancomycin with pharmacy dosing service Acute kidney injury -nonoliguric ischemic ATN from hypotension and sepsis. Renal function is improving. UA is quite benign --Continue with IV fluids --Monitor vancomycin levels closely -- Avoid any other nephrotoxic agents. Recent right hemicolectomy for cecal colon cancer --Colon cancer status post initial partial colectomy on 08/29/2022 Sarcoidosis with asthma DVT prophylaxis; SCDs/subcu heparin CODE STATUS; full code
[2022-09-07 12:50] LABS: Glucose,Whole Blood 163 mg/dL (70-110)
[2022-09-07] MEDS ORDERED: 1: MVI, ADULT NO.4 WITH VIT K 10 ML, TRACE (CONC-1ML/DOSE) 1 ML, SODIUM CHLORIDE 4MEQ/ML IV SCH ×7 (15:00)
[2022-09-07 16:12] LABS: Glucose,Whole Blood 176 mg/dL (70-110)
[2022-09-07] MEDS: [UNRECOGNIZED DRUG - REMARK] IV SCH ×6 (17:39)
[2022-09-07 21:24] LABS: Glucose,Whole Blood 186 mg/dL (70-110)
[2022-09-08 03:43] LABS: Basophils % (A) 0 %; Eosinophils # (A) 0.2 k/uL (0-0.7); Eosinophils % (A) 2 %; HGB 9.7 gm/dL (13.0-17.5); Lymphocytes # (A) 0.8 k/uL (1.0-4.8); Lymphocytes % (A) 5 %; MCH 27.3 pg (25.0-35.0); MCHC 31.3 g/dL (31.0-37.0); MCV 87.3 fL (80.0-100.0); Mean Platelet Volume 9.2; Monocytes # (A) 0.5 k/uL (0-1.0); Monocytes % (A) 3 %; Neutrophils # (A) 13.8 k/uL (1.3-7.7); Neutrophils % (A) 88 %; Platelet Count 270 k/uL (150-450); RBC 3.55 m/uL (4.30-5.90); RDW 15.2 % (11.5-15.5); WBC 15.8 k/uL (3.8-10.6)
[2022-09-08 03:58] LABS: African American GFR (CKD) >90 (>60 ml/min/1.73 sqM); Anion Gap 8 mmol/L; Blood Urea Nitrogen 16 mg/dL (9-20); Carbon Dioxide 25 mmol/L (22-30); Chloride 113 mmol/L (98-107); Glucose 180 mg/dL (74-99); Magnesium 2.1 mg/dL (1.6-2.3); Non-African American GFR(CKD) >90 (>60 ml/min/1.73 sqM); Phosphorus 2.6 mg/dL (2.5-4.5); Potassium 3.9 mmol/L (3.5-5.1); Sodium 146 mmol/L (137-145)
[2022-09-08] MEDS: DEXTROSE 5% IN WATER 1,000 ML IV SCH ×2 (05:07→18:22)
[2022-09-08] MEDS: HYDROmorphone 1 MG/ML 1 ML SYRINGE IVP PRN (05:08)
[2022-09-08] MEDS: POTASSIUM CHLORIDE 10 MEQ in WATER FOR INJECTION 1 100ML.BAG IVPB SCH ×2 (05:08→06:21)
[2022-09-08] MEDS: METOCLOPRAMIDE 5 MG/ML 2 ML VIAL IVP SCH ×4 (05:08→18:13)
[2022-09-08] MEDS: [UNRECOGNIZED DRUG - REMARK] IV SCH ×6 (06:21)
[2022-09-08 06:38] LABS: Glucose,Whole Blood 192 mg/dL (70-110)
[2022-09-08] MEDS: INSULIN ASPART (NovoLOG) 100 UNIT/ML VIAL SQ SCH ×3 (06:39→18:12)
--- NOTE | 2022-09-08 07:09 | P.PN ---
Subjective Progress Note Date: 09/07/22 Principal diagnosis: Intra-abdominal abscess Patient is a 52-year-old male presenting to the hospital with abdominal pain has been diagnosed with an intra-abdominal abscess from perforated diverticulum status post laparotomy and drainage of the abscess. n today's evaluation that is 09/07/2022, patient did have fever 101F this morning, the patient is breathing comfortably on 2 L nasal cannula oxygen, patient denies having any chest pain occasional cough, abdominal pain is controlled with pain meds , no vomiting has been reported, patient is hemodynamically stable not requiring pressor support Objective - Vital Signs Vital signs: Vital Signs Temp 100 F H 09/07/22 04:00 Pulse 113 H 09/07/22 07:00 Resp 24 09/07/22 07:00 BP 136/99 09/07/22 07:00 Pulse Ox 97 09/07/22 07:00 FiO2 40 09/05/22 12:00 Intake & Output 09/06/22 09/07/22 09/07/22 18:59 06:59 18:59 Intake Total 1300 1730 130 Output Total 1550 1125 50 Balance -250 605 80 Weight 104.2 kg 105.8 kg Intake: IV 1300 1200 100 Piperacillin-Tazobactam 3 100 .375 gm In Sodium Chloride 0.9% 100 ml @ 25 mls/hr IVPB Q8HR [facility] Rx# :[id number] Sodium Chloride 0.9% 1, 1200 1200 100 000 ml @ 100 mls/hr IV . Q10H [facility] Rx#:[id number] Intake, IV Titration 530 30 Amount ACETAMINOPHEN IV (For NPO 100 ) 1,000 mg In Empty Bag 1 bag @ 400 mls/hr IVPB Q6HR PRN Rx#:[id number] Mvi, Adult No.4 with Vit 330 30 K 10 ml Trace (Conc-1Ml/ Dose) 1 ml Sodium Chloride 4Meq/ml Vial 10 meq Potassium Acetate 30 meq Calcium Gluconate 1 gm Sodium Phosphate 15 mmol In Amino Acids 5 %/ Dextrose 20 % 1,000 ml @ 108 mls/hr IV .BY DURATION [facility] Rx#: [id number] Piperacillin-Tazobactam 3 100 .375 gm In Sodium Chloride 0.9% 100 ml @ 25 mls/hr IVPB Q8HR [facility] Rx# :[id number] Output: Gastric Drainage 150 Urine 1400 1125 50 Other: Voiding Method Indwelling Catheter Indwelling Catheter ABP, PAP, CO, CI - Last Documented Arterial Blood Pressure 158/44 - Exam GENERAL DESCRIPTION: A middle-age male lying in bed in no distress RESPIRATORY SYSTEM: Unlabored breathing , decreased breath sounds at bases HEART: S1 S2 regular rate and rhythm , ABDOMEN: Soft , mild distention and tenderness EXTREMITIES: No edema feet - Labs CBC & Chem 7: 09/08/22 03:19 09/08/22 03:19 Labs: Abnormal Lab Results - Last 24 Hours (Table) 09/06/22 09/06/22 09/07/22 Range/Units 12:03 23:39 05:43 Sodium 149 H (137-145) mmol/L Chloride 117 H (98-107) mmol/L BUN 21 H (9-20) mg/dL Glucose 136 H (74-99) mg/dL POC Glucose (mg/dL) 130 H (70-110) mg/dL Calcium 7.7 L (8.4-10.2) mg/dL Magnesium 2.7 H (1.6-2.3) mg/dL Total Protein 5.0 L (6.3-8.2) g/dL Albumin 2.5 L (3.5-5.0) g/dL Triglycerides 450.00 H (0.00-149.00) mg/dL 09/07/22 09/07/22 Range/Units 06:35 12:48 Sodium (137-145) mmol/L Chloride (98-107) mmol/L BUN (9-20) mg/dL Glucose (74-99) mg/dL POC Glucose (mg/dL) 137 H 163 H (70-110) mg/dL Calcium (8.4-10.2) mg/dL Magnesium (1.6-2.3) mg/dL Total Protein (6.3-8.2) g/dL Albumin (3.5-5.0) g/dL Triglycerides (0.00-149.00) mg/dL Microbiology - Last 24 Hours (Table) 09/04/22 18:21 Blood Culture - Preliminary Blood 09/04/22 19:50 Gram Stain - Preliminary Peritoneal Fluid Body Fluid Culture - Preliminary Gram Neg Bacilli Assessment and Plan (1) Intra-abdominal abscess Current Visit: Yes Status: Acute Code(s): K65.1 - PERITONEAL ABSCESS SNOMED Code(s): 48640387 Plan: 1patient with sepsis in this patient who did have a fever tachycardia elevated white count source is intra-abdominal in this patient with evidence of colonic diverticular perforation intra-abdominal abscess status post laparotomy drainage of the abscess and primary anastomosis , cultures growing gram negative with ID pending 2-patient to continue the Zosyn 3.375 g every 8 while waiting for the cultures to finalize Time with Patient: Less than 30
[2022-09-08] MEDS: PIPERACILLIN-TAZOBACTAM 3.375 GM in SODIUM CHLORIDE 0.9% 100 ML IVPB SCH ×2 (08:08→16:13)
[2022-09-08] MEDS: PANTOPRAZOLE 40 MG/10 ML VIAL IV SCH (08:09)
[2022-09-08] MEDS: SIMETHICONE 80 MG CHEWABLE PO SCH ×4 (08:09→21:46)
[2022-09-08] MEDS: HEPARIN SODIUM,PORCINE/PF 5,000 UNIT/0.5 ML SYRINGE SQ SCH ×2 (08:09→21:46)
[2022-09-08] MEDS: HYDROmorphone 0.5 MG/0.5 ML SYRINGE IVP PRN ×4 (08:28→21:46)
--- NOTE | 2022-09-08 08:36 | P.PN ---
Subjective Progress Note Date: 09/08/22 CHIEF COMPLAINT: Pneumoperitoneum, abdominal pain HISTORY OF PRESENT ILLNESS: The patient is a 52-year-old male status post right hemicolectomy for colon cancer 08/29/2022. He was discharged from the hospital without sequelae 08/31/2022 and returned to the hospital 09/03/2022 for pneumoperitoneum. e is status post exploratory laparotomy, lysis of adhesions, evacuation of intra-abdominal abscess, right hemicolectomy for resection of perforated transverse colon diverticulum, 09/04/2022. He is extubated. He reports passing flatus. He continues to have fevers. Infectious disease following. Denies right-sided abdominal pain. Has appropriate incisional pain. Nasogastric tube was removed yesterday by ICU team. ROS: Has fevers, T-max 100.7F . No chills. No new chest pain. PHYSICAL EXAM: VITAL SIGNS: Reviewed CONSTITUTIONAL: Well developed and in no acute distress. EYES: Conjuctivae without sclera icterus. Extraocular movements grossly intact. HEAD, EARS, NOSE, THROAT: Moist buccal mucosa. Head is atraumatic, normocephalic. Hears conversational speech. Nasogastric tube intact. RESPIRATORY:abored breathing CARDIOVASCULAR: Palpable 2+ radial pulses. Tachycardic. ABDOMEN: Midline incision wound VAC intact. Serous purulent drainage. Increased abdominal distention MUSCULOSKELETAL: No gross deformity of the lower extremities noted. No clubbing. No cyanosis. SKIN: Good skin turgor. Well perfused. NEUROLOGIC: Cranial nerves II through XII grossly intact. No focal or lateralizing signs. PSYCH: Appropriate affect. Alert and oriented to person, place and time. : Madonna dark urine with rivero CLINICAL LABS: Reviewed. WBC elevated 15.6, leukocytosis. Hemoglobin, 9.7 anemia. Creatinine elevated on admission 2.16, acute renal failure, decreased to 0.94 MICRO: Multiple organisms including Enterococcus, pseudomonas, Enterobacter ASSESSMENT: 1. Pneumoperitoneum due to perforated diverticulum 2. Tachycardia with fevers consistent with sepsis 3. Acute kidney injury, failure due to severe sepsis 4. Colon cancer status post resection PLAN: 1. Recommend blood cultures due to persistent fevers and multiple organisms from peritoneal fluid growth 2. Continue antibiotics 3. Recommend immediate abdominal x-ray. May need repeat computed tomography sc an pending abdominal x-ray results 4. Incisional wound VAC adjusted to wall suction 5. Keep nothing by mouth 6. Start metoprolol 25 mg twice a day for persistent tachycardia Objective - Vital Signs Vital signs: Vital Signs Temp 99.8 F H 09/08/22 06:00 Pulse 125 H 09/08/22 07:00 Resp 32 H 09/08/22 07:00 BP 142/103 09/08/22 07:00 Pulse Ox 96 09/08/22 07:59 FiO2 40 09/05/22 12:00 Intake & Output 09/07/22 09/08/22 09/08/22 18:59 06:59 18:59 Intake Total 2718 3815 208 Output Total 1110 1430 Balance 1608 2385 208 Weight 104.8 kg Intake: IV 100 Sodium Chloride 0.9% 1, 100 000 ml @ 100 mls/hr IV . Q10H [facility] Rx#:[id number] Intake, IV Titration 2618 3815 208 Amount ACETAMINOPHEN IV (For NPO 100 ) 1,000 mg In Empty Bag 1 bag @ 400 mls/hr IVPB Q6HR PRN Rx#:[id number] Dextrose 5% in Water 1, 1000 1200 100 000 ml @ 100 mls/hr IV . Q10H [facility] Rx#:[id number] Mvi, Adult No.4 with Vit 972 108 108 K 10 ml Trace (Conc-1Ml/ Dose) 1 ml Potassium Acetate 8 meq Calcium Gluconate 1 gm Potassium Phosphate 15 mmol In Amino Acids 5 %/Dextrose 20 % 1,000 ml @ 108 mls/ hr IV .BY DURATION [facility] Rx #:[id number] Mvi, Adult No.4 with Vit 138 K 10 ml Trace (Conc-1Ml/ Dose) 1 ml Sodium Chloride 4Meq/ml Vial 10 meq Potassium Acetate 30 meq Calcium Gluconate 1 gm Sodium Phosphate 15 mmol In Amino Acids 5 %/ Dextrose 20 % 1,000 ml @ 108 mls/hr IV .BY D[facility]ATION [facility] Rx#: [id number] Piperacillin-Tazobactam 3 200 100 .375 gm In Sodium Chloride 0.9% 100 ml @ 25 mls/hr IVPB Q8HR [facility] Rx# :[id number] Potassium Acetate 8 meq 108 2207 Calcium Gluconate 1 gm Potassium Phosphate 15 mmol In Amino Acids 5 %/ Dextrose 20 % 1,000 ml @ 108 mls/hr IV .BY DURATION [facility] Rx#: [id number] Potassium Chloride 10 meq 200 In Water For Injection 1 100ml.bag @ 100 mls/hr IVPB Q1H [facility] Rx#: [id number] Sodium Chloride 0.9% 1, 100 000 ml @ 100 mls/hr IV . Q10H [facility] Rx#:[id number] Output: Drainage 80 Left Lower Abdomen 80 Urine 1110 1350 Other: Voiding Method Indwelling Catheter Indwelling Catheter # Voids 1 ABP, PAP, CO, CI - Last Documented Arterial Blood Pressure 158/44 - Labs CBC & Chem 7: 09/08/22 03:19 09/08/22 03:19 Labs: Abnormal Lab Results - Last 24 Hours (Table) 09/07/22 09/07/22 09/07/22 Range/Units 12:48 16:00 21:21 WBC (3.8-10.6) k/uL RBC (4.30-5.90) m/uL Hgb (13.0-17.5) gm/dL Hct (39.0-53.0) % Neutrophils # (1.3-7.7) k/uL Lymphocytes # (1.0-4.8) k/uL Sodium (137-145) mmol/L Chloride (98-107) mmol/L Glucose (74-99) mg/dL POC Glucose (mg/dL) 163 H 176 H 186 H (70-110) mg/dL Calcium (8.4-10.2) mg/dL 09/08/22 09/08/22 09/08/22 Range/Units 03:19 03:19 06:36 WBC 15.8 H (3.8-10.6) k/uL RBC 3.55 L (4.30-5.90) m/uL Hgb 9.7 L (13.0-17.5) gm/dL Hct 31.0 L (39.0-53.0) % Neutrophils # 13.8 H (1.3-7.7) k/uL Lymphocytes # 0.8 L (1.0-4.8) k/uL Sodium 146 H (137-145) mmol/L Chloride 113 H (98-107) mmol/L Glucose 180 H (74-99) mg/dL POC Glucose (mg/dL) 192 H (70-110) mg/dL Calcium 8.0 L (8.4-10.2) mg/dL Microbiology - Last 24 Hours (Table) 09/04/22 19:50 Gram Stain - Preliminary Peritoneal Fluid Body Fluid Culture - Preliminary Escherichia coli Pseudomonas aeruginosa Enterococcus faecium 09/04/22 19:50 Anaerobic Culture - Preliminary Peritoneal Fluid 09/04/22 18:21 Blood Culture - Preliminary Blood
[2022-09-08] MEDS: ACETAMINOPHEN IV (For NPO) 1,000 MG in EMPTY BAG 1 BAG IVPB PRN ×2 (08:49→21:53)
[2022-09-08] MEDS ORDERED: METOPROLOL TARTRATE 25 MG TAB PO SCH (09:00)
--- NOTE | 2022-09-08 09:01 | XR ---
EXAMINATION TYPE: XR KUB portable DATE OF EXAM: 09/08/2022 COMPARISON: 09/04/2022 HISTORY: Distention TECHNIQUE: One view abdominal series FINDINGS: The osseous structures are intact. The bowel gas pattern is nonspecific. Surgical fransisca are seen a nd there are multiple dilated small bowel loops in the left abdomen. Surgical drain. Hypertrophic charbel nge of the spine. Assessment for free air is nondiagnostic. IMPRESSION: 1. Persistent markedly dilated small bowel loops or lytic or postoperative ileus or obstruction
[2022-09-08] MEDS: DAPTOmycin 500 MG in SODIUM CHLORIDE 0.9% 50 ML IVPB SCH (09:51)
--- NOTE | 2022-09-08 11:25 | P.PN ---
Subjective Progress Note Date: 09/08/22 This is a 52-year-old -[place] male with history of colon cancer, status post right hemicolectomy for cecal colon cancer on 08/29/2022. Patient was discharged uneventfully on Percocet and Motrin for pain control. Patient was readmitted on 09/03/2022, he was mostly admitted with abdominal pain, distention, nausea and vomiting which started a few days prior to his admission. Patient was seen by surgery on consultation, and he was found to have acute pneumoperitoneum. Yesterday, the patient underwent robotic-assisted laparoscopic extensive lysis of adhesions open exploratory laparotomy with right hemicolectomy and primary anastomosis drainage of abdominal abscess abdominal peritoneal lavage, Margarita spent of a SARAI drain in the pelvis and placement of the incisional wound VAC system. I was notified about this patient from Dr. Moeller yesterday, and considering his abdominal sepsis presentation considering his surgical findings considering the patient was not extubated postoperatively, we admitted the patient to the ICU, manage his ventilator overnight, and I'm evaluating the patient today on consultation. Patient had a relatively uneventful night, did not require any pressors, he did receive fluids and he seems to be hemodynamically stable, remains on mechanical ventilation. His ventilator settings at this point are assist control rate of 18 tidal volume 500 FiO2 40% and PEEP of 5 recent ABG showed a pO2 of 79 pCO2 39 pH of 7.42 patient is on vancomycin and Zosyn for his abdominal sepsis he is on propofol at 65 mcg/kg/m he has good urine output roughly 30-50 mL per hour. Patient has a nasogastric tube applied to suction and he has a wound VAC. He also has a SARAI drain noted. Patient is sedated and calm, however I would recommend a trial of sedation interruption and possibly weaning parameters, if tolerated may consider further weaning and extubation today. Labs today showed relatively normal CBC WBC count is 8.6 hemoglobin is 10.4. Elect lites are normal BUN is 23 creatinine 1.36. Reevaluated today on 09/06/2022, patient remains in the ICU, patient was extub ated yesterday and he tolerated extubation well over the last 24 hours. He is on 2 L nasal cannula, not in any distress. Continues to have significant nasogastric output. Patient is to be started on TPN today. Doing better than expected overall. Remains on antibiotics for his abdominal sepsis. White count is 11.8 today hemoglobin is 9.6. Elect lites are normal renal profile is normal with a creatinine of 1.14, improving since admission from 2.14 on admission. Patient is compliant with his incentive spirometry and doing a good job with I- S. Reevaluated today on 09/07/2022, patient remains in the ICU, he feels generally weak, denies any shortness of breath, no cough, no wheezing. Continues to have nasogastric tube in place, and he had 1 50 mL of output overnight. Patient on TPN for nutritional support. His sodium was noted to be elevated today, and I recommended switching his IV fluid to D5W at 100 mL per hour. His labs otherwise are unremarkable. Patient is doing well with incentive spirometry, pain is fairly well controlled. Renal profile is normal, WBC count is 11.8 h emoglobin is 9.6 The patient is seen today 09/08/2022 in follow-up in the intensive care unit. He is currently resting comfortably in bed. Awake and alert in no acute distress. He is maintaining good O2 saturations in the mid 90s on room air. He is febrile with a temp of 101.9. Tachycardic. Hypertensive. Blood cultures pending. Abdominal x-ray revealed persistent markedly dilated small bowel loops. Peritoneal fluid cultures were positive for E. coli, Pseudomonas aeruginosa, enterococcus faecium. He remains nothing by mouth. He is continued on TPN and lipids. Antibiotics in the form of Zosyn and now daptomycin. Remains on heparin for DVT prophylaxis. He is up ambulating with assistance. Objective - Vital Signs Vital signs: Vital Signs Temp 101.9 F H 09/08/22 08:00 Pulse 118 H 09/08/22 11:01 Resp 23 09/08/22 11:01 BP 135/98 09/08/22 11:01 Pulse Ox 97 09/08/22 10:00 FiO2 40 09/05/22 12:00 Intake & Output 09/07/22 09/08/22 09/08/22 18:59 06:59 18:59 Intake Total 2718 3815 1290 Output Total 1110 1430 0 Balance 1608 2385 1290 Weight 104.8 kg Intake: IV 100 1082 ACETAMINOPHEN IV (For NPO 100 ) 1,000 mg In Empty Bag 1 bag @ 400 mls/hr IVPB Q6HR PRN Rx#:[id number] DAPTOmycin 500 mg In 50 Sodium Chloride 0.9% 50 ml @ 100 mls/hr IVPB Q24HR [facility] Rx#:[id number] Dextrose 5% in Water 1, 400 000 ml @ 100 mls/hr IV . Q10H [facility] Rx#:[id number] Piperacillin-Tazobactam 3 100 .375 gm In Sodium Chloride 0.9% 100 ml @ 25 mls/hr IVPB Q8HR [facility] Rx# :[id number] Potassium Acetate 8 meq 432 Calcium Gluconate 1 gm Potassium Phosphate 15 mmol In Amino Acids 5 %/ Dextrose 20 % 1,000 ml @ 108 mls/hr IV .BY DURATION [facility] Rx#: [id number] Sodium Chloride 0.9% 1, 100 000 ml @ 100 mls/hr IV . Q10H [facility] Rx#:[id number] Intake, IV Titration 8388 1505 208 Amount ACETAMINOPHEN IV (For NPO 100 ) 1,000 mg In Empty Bag 1 bag @ 400 mls/hr IVPB Q6HR PRN Rx#:[id number] Dextrose 5% in Water 1, 1000 1200 100 000 ml @ 100 mls/hr IV . Q10H [facility] Rx#:[id number] Mvi, Adult No.4 with Vit 972 108 108 K 10 ml Trace (Conc-1Ml/ Dose) 1 ml Potassium Acetate 8 meq Calcium Gluconate 1 gm Potassium Phosphate 15 mmol In Amino Acids 5 %/Dextrose 20 % 1,000 ml @ 108 mls/ hr IV .BY DURATION [facility] Rx #:[id number] Mvi, Adult No.4 with Vit 138 K 10 ml Trace (Conc-1Ml/ Dose) 1 ml Sodium Chloride 4Meq/ml Vial 10 meq Potassium Acetate 30 meq Calcium Gluconate 1 gm Sodium Phosphate 15 mmol In Amino Acids 5 %/ Dextrose 20 % 1,000 ml @ 108 mls/hr IV .BY DURATION [facility] Rx#: [id number] Piperacillin-Tazobactam 3 200 100 .375 gm In Sodium Chloride 0.9% 100 ml @ 25 mls/hr IVPB Q8HR [facility] Rx# :[id number] Potassium Acetate 8 meq 108 2207 Calcium Gluconate 1 gm Potassium Phosphate 15 mmol In Amino Acids 5 %/ Dextrose 20 % 1,000 ml @ 108 mls/hr IV .BY DURATION [facility] Rx#: [id number] Potassium Chloride 10 meq 200 In Water For Injection 1 100ml.bag @ 100 mls/hr IVPB Q1H [facility] Rx#: [id number] Sodium Chloride 0.9% 1, 100 000 ml @ 100 mls/hr IV . Q10H [facility] Rx#:[id number] Output: Drainage 80 Left Lower Abdomen 80 Urine 1110 1350 0 Other: Voiding Method Indwelling Catheter Indwelling Catheter # Voids 1 ABP, PAP, CO, CI - Last Documented Arterial Blood Pressure 158/44 - Exam GENERAL EXAM: Alert, active, doesn't 52-year-old male patient, on room air, com fortable in no apparent distress. HEAD: Normocephalic. EYES: Normal reaction of pupils, equal size. NOSE: Nasogastric tube secured in place. Clear with pink turbinates. THROAT: No erythema or exudates. NECK: No masses, no JVD. CHEST: No chest wall deformity. LUNGS: Equal air entry with no crackles, wheeze, rhonchi or dullness. CVS: S1 and S2 normal with no audible murmur, regular rhythm. ABDOMEN: Midline incision with wound VAC intact. Serous purulent drainage. Increased abdominal distention. SPINE: No scoliosis or deformity SKIN: No rashes CENTRAL NERVOUS SYSTEM: No focal deficits, tone is normal in all 4 extremities. EXTREMITIES: There is no peripheral edema. No clubbing, no cyanosis. Peripheral pulses are intact. - Labs CBC & Chem 7: 09/08/22 03:19 09/08/22 09:24 Labs: Abnormal Lab Results - Last 24 Hours (Table) 09/07/22 09/07/22 09/07/22 Range/Units 12:48 16:00 21:21 WBC (3.8-10.6) k/uL RBC (4.30-5.90) m/uL Hgb (13.0-17.5) gm/dL Hct (39.0-53.0) % Neutrophils # (1.3-7.7) k/uL Lymphocytes # (1.0-4.8) k/uL Sodium (137-145) mmol/L Chloride (98-107) mmol/L Glucose (74-99) mg/dL POC Glucose (mg/dL) 163 H 176 H 186 H (70-110) mg/dL Calcium (8.4-10.2) mg/dL 09/08/22 09/08/22 09/08/22 Range/Units 03:19 03:19 06:36 WBC 15.8 H (3.8-10.6) k/uL RBC 3.55 L (4.30-5.90) m/uL Hgb 9.7 L (13.0-17.5) gm/dL Hct 31.0 L (39.0-53.0) % Neutrophils # 13.8 H (1.3-7.7) k/uL Lymphocytes # 0.8 L (1.0-4.8) k/uL Sodium 146 H (137-145) mmol/L Chloride 113 H (98-107) mmol/L Glucose 180 H (74-99) mg/dL POC Glucose (mg/dL) 192 H (70-110) mg/dL Calcium 8.0 L (8.4-10.2) mg/dL Microbiology - Last 24 Hours (Table) 09/04/22 19:50 Gram Stain - Preliminary Peritoneal Fluid Body Fluid Culture - Preliminary Escherichia coli Pseudomonas aeruginosa Enterococcus faecium 09/04/22 19:50 Anaerobic Culture - Preliminary Peritoneal Fluid 09/04/22 18:21 Blood Culture - Preliminary Blood Assessment and Plan Assessment: Acute pneumoperitoneum, secondary to perforated colonic diverticulum and transverse colon Severe abdominal sepsis secondary to E. coli, pseudomonas aeruginosa, enterococcus faecium Febrile illness secondary to above, blood cultures pending History of colon cancer status post resection Acute kidney injury Acute lactic acidosis secondary to sepsis Intra-abdominal abscess Abdominal ascites History of sarcoidosis Status post robotic-assisted laparoscopy with extensive lysis of adhesions, right hemicolectomy and primary anastomosis and drainage of abdominal abscess abdominal peritoneal lavage and placement of SARAI drain as well as incisional wound VAC system postoperative day #4 Sinus tachycardia secondary to sepsis Acute Hypernatremia, suspect free water deficit Plan: The patient was seen and evaluated Abdominal x-ray, labs and medications reviewed Continue Zosyn, daptomycin added Repeat blood cultures pending We will continue to follow I have personally seen and examined the patient, performed the documentation and the assessment and plan as written. Number of minutes spent on the visit: 10.
--- NOTE | 2022-09-08 11:47 | P.PN ---
Subjective Patient is seen in follow-up for acute kidney injury. Renal function improving. Nonoliguric. On D5W. Sodium level trending down. NG tube removed. Vital signs are stable. General: No acute distress. HEENT: Head exam is unremarkable. LUNGS: No audible rhonchi or wheezes. HEART: Regular rate and rhythm. ABDOMEN: SARAI Drain noted. EXTREMITITES: No edema. Objective - Vital Signs Vital signs: Vital Signs Temp 101.9 F H 09/08/22 08:00 Pulse 118 H 09/08/22 11:01 Resp 23 09/08/22 11:01 BP 135/98 09/08/22 11:01 Pulse Ox 97 09/08/22 10:00 FiO2 40 09/05/22 12:00 Intake & Output 09/07/22 09/08/22 09/08/22 18:59 06:59 18:59 Intake Total 2718 3815 1290 Output Total 1110 1430 0 Balance 1608 2385 1290 Weight 104.8 kg 104.8 kg Intake: IV 100 1082 ACETAMINOPHEN IV (For NPO 100 ) 1,000 mg In Empty Bag 1 bag @ 400 mls/hr IVPB Q6HR [facility] Rx#:[id number] DAPTOmycin 500 mg In 50 Sodium Chloride 0.9% 50 ml @ 100 mls/hr IVPB Q24HR [facility] Rx#:[id number] Dextrose 5% in Water 1, 400 000 ml @ 100 mls/hr IV . Q10H [facility] Rx#:[id number] Piperacillin-Tazobactam 3 100 .375 gm In Sodium Chloride 0.9% 100 ml @ 25 mls/hr IVPB Q8HR [facility] Rx# :[id number] Potassium Acetate 8 meq 432 Calcium Gluconate 1 gm Potassium Phosphate 15 mmol In Amino Acids 5 %/ Dextrose 20 % 1,000 ml @ 108 mls/hr IV .BY DURATION [facility] Rx#: [id number] Sodium Chloride 0.9% 1, 100 000 ml @ 100 mls/hr IV . Q10H [facility] Rx#:[id number] Intake, IV Titration 2618 3815 208 Amount ACETAMINOPHEN IV (For NPO 100 ) 1,000 mg In Empty Bag 1 bag @ 400 mls/hr IVPB Q6HR [facility] Rx#:[id number] Dextrose 5% in Water 1, 1000 1200 100 000 ml @ 100 mls/hr IV . Q10H [facility] Rx#:[id number] Mvi, Adult No.4 with Vit 972 108 108 K 10 ml Trace (Conc-1Ml/ Dose) 1 ml Potassium Acetate 8 meq Calcium Gluconate 1 gm Potassium Phosphate 15 mmol In Amino Acids 5 %/Dextrose 20 % 1,000 ml @ 108 mls/ hr IV .BY DURATION [facility] Rx #:[id number] Mvi, Adult No.4 with Vit 138 K 10 ml Trace (Conc-1Ml/ Dose) 1 ml Sodium Chloride 4Meq/ml Vial 10 meq Potassium Acetate 30 meq Calcium Gluconate 1 gm Sodium Phosphate 15 mmol In Amino Acids 5 %/ Dextrose 20 % 1,000 ml @ 108 mls/hr IV .BY DURATION [facility] Rx#: [id number] Piperacillin-Tazobactam 3 200 100 .375 gm In Sodium Chloride 0.9% 100 ml @ 25 mls/hr IVPB Q8HR [facility] Rx# :[id number] Potassium Acetate 8 meq 108 2207 Calcium Gluconate 1 gm Potassium Phosphate 15 mmol In Amino Acids 5 %/ Dextrose 20 % 1,000 ml @ 108 mls/hr IV .BY DURATION [facility] Rx#: [id number] Potassium Chloride 10 meq 200 In Water For Injection 1 100ml.bag @ 100 mls/hr IVPB Q1H [facility] Rx#: [id number] Sodium Chloride 0.9% 1, 100 000 ml @ 100 mls/hr IV . Q10H [facility] Rx#:[id number] Output: Drainage 80 Left Lower Abdomen 80 Urine 1110 1350 0 Other: Voiding Method Indwelling Catheter Indwelling Catheter # Voids 1 ABP, PAP, CO, CI - Last Documented Arterial Blood Pressure 158/44 - Labs CBC & Chem 7: 09/08/22 03:19 09/08/22 09:24 Labs: Abnormal Lab Results - Last 24 Hours (Table) 09/07/22 09/07/22 09/07/22 Range/Units 12:48 16:00 21:21 WBC (3.8-10.6) k/uL RBC (4.30-5.90) m/uL Hgb (13.0-17.5) gm/dL Hct (39.0-53.0) % Neutrophils # (1.3-7.7) k/uL Lymphocytes # (1.0-4.8) k/uL Sodium (137-145) mmol/L Chloride (98-107) mmol/L Glucose (74-99) mg/dL POC Glucose (mg/dL) 163 H 176 H 186 H (70-110) mg/dL Calcium (8.4-10.2) mg/dL 09/08/22 09/08/22 09/08/22 Range/Units 03:19 03:19 06:36 WBC 15.8 H (3.8-10.6) k/uL RBC 3.55 L (4.30-5.90) m/uL Hgb 9.7 L (13.0-17.5) gm/dL Hct 31.0 L (39.0-53.0) % Neutrophils # 13.8 H (1.3-7.7) k/uL Lymphocytes # 0.8 L (1.0-4.8) k/uL Sodium 146 H (137-145) mmol/L Chloride 113 H (98-107) mmol/L Glucose 180 H (74-99) mg/dL POC Glucose (mg/dL) 192 H (70-110) mg/dL Calcium 8.0 L (8.4-10.2) mg/dL Microbiology - Last 24 Hours (Table) 09/04/22 19:50 Gram Stain - Preliminary Peritoneal Fluid Body Fluid Culture - Preliminary Escherichia coli Pseudomonas aeruginosa Enterococcus faecium 09/04/22 19:50 Anaerobic Culture - Preliminary Peritoneal Fluid 09/04/22 18:21 Blood Culture - Preliminary Blood Assessment and Plan Plan: Assessment: 1. Acute kidney injury secondary to ATN secondary to severe sepsis. Creatinine 2.1 on admission and is 0.94 today. Nonoliguric. UA fairly benign. No hydronephrosis noted on CAT scan. 2. Pneumoperitoneum status post lysis of lesions, right hemicolectomy and drainage of intra-abdominal abscess on 09/04/2022. 3. History of colon cancer. 4. Severe sepsis secondary to abdominal abscess. On antibiotics. 5. Hypernatremia from lack of free water intake. Improving with D5W. Plan: Maintain D5W at 100 mL an hour. Repeat sodium level this evening. Continue to monitor renal function and urine output. Avoid nephrotoxins.
[2022-09-08 11:58] LABS: Glucose,Whole Blood 271 mg/dL (70-110)
--- NOTE | 2022-09-08 14:59 | P.PN ---
Subjective Progress Note Date: 09/08/22 This is a 52 year old male monitored in the intensive care unit postoperative day #4 lysis of adhesions and right hemicolectomy due to bowel perforation. Patient had end to end anastamosis. Has not had bowel movement, had KUB xray today showing multiple dilated small bowel loops possible ileus vs. obstruction. General surgery recommending patient to be NPO at this time. Heart rate remains elevated in the 120s and patient switched to IV lopressor. Remains on IV daptomycin and IV zosyn for positive peritoneal fluid culture with E. Coli, enterococcus and pseudomonas. Blood culture negative so far. Patient remains on D5 water at 100 mls/hr, sodium is slightly improved today down to 146. Continues on TPN, NG tube has been discontinued. Accuchecks switched to Q6h and small dose of levemir HS has been added. SARAI drain in place with serous drainage. Patient febrile today up to 101.9, encouraged to continue with incentive spirometer. Patient has wound vac in place to continuous suction, plan to ambulate around the room and up in the chair today. Review of Systems Constitutional: Denied any fatigue denied any fever. Cardio vascular: denied any chest pain, palpitations Gastrointestinal: denied any nausea, vomiting, reports incisional abdominal pain, no BM, passing some gas. Pulmonary: Denied any shortness of breath cough Neurologic denied any new focal deficits, All inpatient medications were reviewed and appropriate changes in these medications as dictated in the interval history and assessment and plan. PHYSICAL EXAMINATION: GENERAL: The patient is alert and oriented x3, not in any acute distress. Well developed, well nourished. HEENT: Pupils are round and equally reacting to light. EOMI. No scleral icterus. No conjunctival pallor. Normocephalic, atraumatic. No pharyngeal erythema. No thyromegaly. CARDIOVASCULAR: S1 and S2 present. No murmurs, rubs, or gallops. PULMONARY: Chest is clear to auscultation, no wheezing or crackles. ABDOMEN: Soft, tender, distended, hypoactive bowel sounds. No palpable organomegaly. Post surgical, midline woundvac in place. MUSCULOSKELETAL: No joint swelling or deformity. EXTREMITIES: No cyanosis, clubbing, or pedal edema. NEUROLOGICAL: Gross neurological examination did not reveal any focal deficits. Mild generalized weakness. SKIN: No rashes. Assessment Sepsis secondary to perforated diverticulum postoperative day #4 evacuation of abscess, lysis of adhesions, right hemicolectomy Colon cancer s/p resection on 08/29/2022 Acute kidney injury secondary to ATN and sepsis Fever and persistent sinus tachycardia Leukocytosis Hypernatremia Hx hyperlipidemia Sarcoidosis with asthma Nicotine use GI prophylaxis DVT prophylaxis Full Code Plan Continue IV antibiotics, infectious disease following closely Patient continues to be febrile and blood cultures have been repeated today Continue with TPN, patient is currently NPO Novolog s/s adjusted to Q6h and levemir at HS has been added. IV metoprolol started for tachycardia Continues on D5 water and f/u labs tomorrow Encourage ambulation, increase activity level and incentive spirometer The impression and plan of care has been dictated by Misty Fairchild, Nurse Practitioner as directed. Dr. Kai MD I have performed a history and physical examination and medical decision making of this patient, discussed the same with the dictator, and agree with the dictators assessment and plan as written, documented as a scribe. Based on total visit time, I have performed more than 50% of this visit. Objective - Vital Signs Vital signs: Vital Signs Temp 99.8 F H 09/08/22 06:00 Pulse 125 H 09/08/22 07:00 Resp 32 H 09/08/22 07:00 BP 142/103 09/08/22 07:00 Pulse Ox 96 09/08/22 07:59 FiO2 40 09/05/22 12:00 Intake & Output 09/07/22 09/08/22 09/08/22 18:59 06:59 18:59 Intake Total 2718 3815 208 Output Total 1110 1430 Balance 1608 2385 208 Weight 104.8 kg Intake: IV 100 Sodium Chloride 0.9% 1, 100 000 ml @ 100 mls/hr IV . Q10H [facility] Rx#:[id number] Intake, IV Titration 2558 3815 208 Amount ACETAMINOPHEN IV (For NPO 100 ) 1,000 mg In Empty Bag 1 bag @ 400 mls/hr IVPB Q6HR [facility] Rx#:[id number] Dextrose 5% in Water 1, 1000 1200 100 000 ml @ 100 mls/hr IV . Q10H [facility] Rx#:[id number] Mvi, Adult No.4 with Vit 972 108 108 K 10 ml Trace (Conc-1Ml/ Dose) 1 ml Potassium Acetate 8 meq Calcium Gluconate 1 gm Potassium Phosphate 15 mmol In Amino Acids 5 %/Dextrose 20 % 1,000 ml @ 108 mls/ hr IV .BY DURATION [facility] Rx #:[id number] Mvi, Adult No.4 with Vit 138 K 10 ml Trace (Conc-1Ml/ Dose) 1 ml Sodium Chloride 4Meq/ml Vial 10 meq Potassium Acetate 30 meq Calcium Gluconate 1 gm Sodium Phosphate 15 mmol In Amino Acids 5 %/ Dextrose 20 % 1,000 ml @ 108 mls/hr IV .BY DURATION [facility] Rx#: [id number] Piperacillin-Tazobactam 3 200 100 .375 gm In Sodium Chloride 0.9% 100 ml @ 25 mls/hr IVPB Q8HR [facility] Rx# :[id number] Potassium Acetate 8 meq 108 2207 Calcium Gluconate 1 gm Potassium Phosphate 15 mmol In Amino Acids 5 %/ Dextrose 20 % 1,000 ml @ 108 mls/hr IV .BY DURATION [facility] Rx#: [id number] Potassium Chloride 10 meq 200 In Water For Injection 1 100ml.bag @ 100 mls/hr IVPB Q1H [facility] Rx#: [id number] Sodium Chloride 0.9% 1, 100 000 ml @ 100 mls/hr IV . Q10H [facility] Rx#:[id number] Output: Drainage 80 Left Lower Abdomen 80 Urine 1110 1350 Other: Voiding Method Indwelling Catheter Indwelling Catheter # Voids 1 ABP, PAP, CO, CI - Last Documented Arterial Blood Pressure 158/44 - Labs CBC & Chem 7: 09/08/22 03:19 09/08/22 09:24 Labs: Abnormal Lab Results - Last 24 Hours (Table) 09/07/22 09/07/22 09/07/22 Range/Units 12:48 16:00 21:21 WBC (3.8-10.6) k/uL RBC (4.30-5.90) m/uL Hgb (13.0-17.5) gm/dL Hct (39.0-53.0) % Neutrophils # (1.3-7.7) k/uL Lymphocytes # (1.0-4.8) k/uL Sodium (137-145) mmol/L Chloride (98-107) mmol/L Glucose (74-99) mg/dL POC Glucose (mg/dL) 163 H 176 H 186 H (70-110) mg/dL Calcium (8.4-10.2) mg/dL 09/08/22 09/08/22 09/08/22 Range/Units 03:19 03:19 06:36 WBC 15.8 H (3.8-10.6) k/uL RBC 3.55 L (4.30-5.90) m/uL Hgb 9.7 L (13.0-17.5) gm/dL Hct 31.0 L (39.0-53.0) % Neutrophils # 13.8 H (1.3-7.7) k/uL Lymphocytes # 0.8 L (1.0-4.8) k/uL Sodium 146 H (137-145) mmol/L Chloride 113 H (98-107) mmol/L Glucose 180 H (74-99) mg/dL POC Glucose (mg/dL) 192 H (70-110) mg/dL Calcium 8.0 L (8.4-10.2) mg/dL Microbiology - Last 24 Hours (Table) 09/04/22 19:50 Gram Stain - Preliminary Peritoneal Fluid Body Fluid Culture - Preliminary Escherichia coli Pseudomonas aeruginosa Enterococcus faecium 09/04/22 19:50 Anaerobic Culture - Preliminary Peritoneal Fluid 09/04/22 18:21 Blood Culture - Preliminary Blood Assessment and Plan Time with Patient: Less than 30
[2022-09-08] MEDS: [UNRECOGNIZED DRUG - REMARK] IV SCH ×12 (15:40→19:01)
--- NOTE | 2022-09-08 16:24 | P.CONS ---
History of Present Illness - Reason for Consult Consult date: 09/08/22 Colon adenocarcinoma Requesting physician: Sallie Oconnor - Chief Complaint adb pain - History of Present Illness Mr Grajeda is a male patient of Dr. Finn who had his screening colonoscopy 07/29/22. He did not have any symptoms other than occasional mild crampy pain in the right lower quadrant intermittently since January 2022. He had had one bloody bowel movement. Colonoscopy showed a circumferential ulcerated cecal mass, biopsy positive for invasive adenocarcinoma arising in a bilious adenoma. Additional polyps were removed from the transverse and descending colon which showed tubular adenoma. CT AP ordered by GI showed cecal mass near the base of the appendix causing some obstruction, appendix was dilated with fluid and hyperemia of the mucosa, a prominent adjacent mesenteric lymph node and an indeterminate 9 mm liver lesion also noted. PET scan showed no uptake in the liver, there was uptake in bilateral mediastinal lymph nodes including right paratracheal, left station 10, right subcarinal and bilateral hilar. SUV was mildly elevated in the 4-5 range, with the largest node 1.3 cm in the right paratracheal. Scattered calcifications of the pleura were seen, suggestive of possible asbestosis. The level and pattern of uptake in the mediastinal nodes appear to be consistent with inflammation, rather than malignancy. Of note, the patient does have a known history of sarcoidosis affecting his lungs, as well as skin. Uptake was also seen at the primary site as well as at least one adjacent mesenteric node, 9 mm with SUV of 1.9. The patient has been seen by surgery, and has resection planned for 08/29/22. He denied any prior history of ma lignancy, or family history of the same. He denied any specific symptoms other than some mild crampy pain in the right lower quadrant intermittently since about 02/18. He states that that time he had one bloody bowel movement followed by crampy pain to once a week. Frequency of these episodes had since improved significantly, and bleeding had not recurred. It was felt that the surgical removal of the tumor was best to be done sooner than later because of the possibility of the appendix bursting. 09/02/22 Patient had right hemicolectomy, including the appendix and a portion of the terminal il eum. Pathology report showing invasive mucinous adenocarcinoma, invading through the cecal muscularis propria and invades into adherent small bowel muscularis propria, all margins viable and negative for malignancy, this pathology grade 2, tumor size 10 cm, no perforation, no lymphovascular invasion 0/6 lymph nodes. 09/04 patient unfortunately suffered from a perforated colonic diverticulum in the transverse colon leading to a pneumoperitoneum. He is status post surgery, drain placement and wound VAC. He is doing actually fairly well today. He is passing gas, he is reporting that he is very hungry. No fevers. Abdominal cultures positive for Escherichia coli, pseudomonas and en terococcus. Vital signs are showing tachycardia and hypertension, patient is asymptomatic. He is on antibiotics. On chart review during this note it is Documented the patient has had a bowel movement Review of Systems 10 point review of systems is negative except as stated in HPI Past Medical History Past Medical History: Cancer, Hyperlipidemia Additional Past Medical History / Comment(s): sarcoidosis, polyps removed that were abnormal, small tumor History of Any Multi-Drug Resistant Organisms: None Reported Past Surgical History: No Surgical Hx Reported Additional Past Surgical History / Comment(s): achilles tendon repair, colonscopy, partial colectomy Past Anesthesia/Blood Transfusion Reactions: No Reported Reaction Additional Past Anesthesia/Blood Transfusion Reaction / Comm: no blo9od tx hx Past Psychological History: No Psychological Hx Reported Smoking Status: Current some day smoker Past Alcohol Use History: Occasional Additional Past Alcohol Use History / Comment(s): marijuana Past Drug Use History: Marijuana - Past Family History Mother Family Medical History: No Reported History Medications and Allergies Home Medications Medication Instructions Recorded Confirmed Type Acetaminophen Tab [Tylenol Tab] 1,000 mg PO Q6HR PRN #30 tablet 08/31/22 09/03/22 Rx Ibuprofen [Motrin] 600 mg PO Q8HR PRN #30 tab 08/31/22 09/03/22 Rx Simethicone [Gas-X] 125 mg PO AC-TID PRN #20 capsule 08/31/22 09/03/22 Rx oxyCODONE-APAP 7.5-325MG [Percocet 1 tab PO Q6HR PRN 3 Days #12 tab 08/31/22 09/03/22 Rx 7.5-325 mg] Allergies Allergy/AdvReac Type Severity Reaction Status Date / Time No Known Allergies Allergy Verified 09/03/22 07:07 Physical Exam Vitals: Vital Signs Temp Pulse Resp BP Pulse Ox 09/08/22 14:00 123 H 28 H 153/108 98 09/08/22 13:00 124 H 24 141/94 97 09/08/22 12:00 98.2 F 117 H 16 135/98 97 09/08/22 11:01 118 H 23 135/98 09/08/22 10:00 117 H 23 151/98 97 09/08/22 09:00 121 H 30 H 151/101 96 09/08/22 08:00 101.9 F H 123 H 20 147/102 96 09/08/22 07:59 96 09/08/22 07:00 125 H 32 H 142/103 97 09/08/22 06:00 99.8 F H 128 H 29 H 143/96 96 09/08/22 05:00 124 H 25 H 143/96 09/08/22 04:00 100 F H 124 H 32 H 153/103 95 09/08/22 03:00 122 H 34 H 145/101 95 09/08/22 02:00 123 H 23 148/105 95 09/08/22 01:00 125 H 40 H 148/98 91 L 09/08/22 00:00 100 F H 124 H 31 H 154/95 94 L 09/07/22 23:00 122 H 28 H 146/112 95 09/07/22 22:16 124 H 22 146/112 97 09/07/22 22:00 128 H 37 H 148/94 97 09/07/22 21:00 100.7 F H 122 H 30 H 138/96 94 L 09/07/22 20:00 121 H 18 148/103 97 09/07/22 19:00 123 H 22 130/96 95 09/07/22 18:00 124 H 16 130/81 93 L 09/07/22 17:00 123 H 27 H 140/103 94 L 09/07/22 16:00 99.1 F 120 H 18 130/83 97 09/07/22 15:00 121 H 23 141/99 95 Intake and Output 09/07/22 09/08/22 09/08/22 22:59 06:59 14:59 Intake Total 1764 2983 1914 Output Total 1025 780 420 Balance 739 5833 1494 Intake: IV 1706 ACETAMINOPHEN IV (For NPO 100 ) 1,000 mg In Empty Bag 1 bag @ 400 mls/hr IVPB Q6HR PRN Rx#:[id number] DAPTOmycin 500 mg In 50 Sodium Chloride 0.9% 50 ml @ 100 mls/hr IVPB Q24HR [facility] Rx#:[id number] Dextrose 5% in Water 1, 700 000 ml @ 100 mls/hr IV . Q10H [facility] Rx#:[id number] Piperacillin-Tazobactam 3 100 .375 gm In Sodium Chloride 0.9% 100 ml @ 25 mls/hr IVPB Q8HR [facility] Rx# :[id number] Potassium Acetate 8 meq 756 Calcium Gluconate 1 gm Potassium Phosphate 15 mmol In Amino Acids 5 %/ Dextrose 20 % 1,000 ml @ 108 mls/hr IV .BY DURATION [facility] Rx#: [id number] Intake, IV Titration 1764 2983 208 Amount Dextrose 5% in Water 1, 800 800 100 000 ml @ 100 mls/hr IV . Q10H [facility] Rx#:[id number] Mvi, Adult No.4 with Vit 216 108 108 K 10 ml Trace (Conc-1Ml/ Dose) 1 ml Potassium Acetate 8 meq Calcium Gluconate 1 gm Potassium Phosphate 15 mmol In Amino Acids 5 %/Dextrose 20 % 1,000 ml @ 108 mls/ hr IV .BY DURATION [facility] Rx #:[id number] Mvi, Adult No.4 with Vit 108 K 10 ml Trace (Conc-1Ml/ Dose) 1 ml Sodium Chloride 4Meq/ml Vial 10 meq Potassium Acetate 30 meq Calcium Gluconate 1 gm Sodium Phosphate 15 mmol In Amino Acids 5 %/ Dextrose 20 % 1,000 ml @ 108 mls/hr IV .BY DURATION [facility] Rx#: [id number] Piperacillin-Tazobactam 3 100 100 .375 gm In Sodium Chloride 0.9% 100 ml @ 25 mls/hr IVPB Q8HR [facility] Rx# :[id number] Potassium Acetate 8 meq 540 1775 Calcium Gluconate 1 gm Potassium Phosphate 15 mmol In Amino Acids 5 %/ Dextrose 20 % 1,000 ml @ 108 mls/hr IV .BY DURATION [facility] Rx#: [id number] Potassium Chloride 10 meq 200 In Water For Injection 1 100ml.bag @ 100 mls/hr IVPB Q1H [facility] Rx#: [id number] Output: Drainage 80 Left Lower Abdomen 80 Urine 1025 700 420 Other: Voiding Method Indwelling Catheter Indwelling Catheter Urinal # Voids 1 # Bowel Movements 1 Weight 104.8 kg 104.8 kg - Constitutional General appearance: average body habitus, cooperative, no acute distress - EENT Eyes: anicteric sclerae, EOMI ENT: hearing grossly normal, normal oropharynx - Neck Neck: no lymphadenopathy - Respiratory Respiratory: bilateral: CTA - Cardiovascular Rhythm: regular Heart sounds: normal: S1, S2 Abnormal Heart Sounds: no systolic murmur, no diastolic murmur, no rub, no S3 Gallop, no S4 Gallop, no click, no other leg Peripheral Edema: bilateral: None - Gastrointestinal General gastrointestinal: absent bowel sounds, no decreased bowel sounds, d istended, no hepatomegaly, no hyperactive bowel sounds, no normal bowel sounds, no organomegaly, no rigid, no scaphoid, soft, no splenomegaly, tenderness, no umbilical hernia, no ventral hernia - Integumentary Integumentary: normal - Neurologic Neurologic: CNII-XII intact - Musculoskeletal Musculoskeletal: strength equal bilaterally - Psychiatric Psychiatric: A&O x's 3, appropriate affect, intact judgment & insight Results CBC & Chem 7: 09/08/22 03:19 09/08/22 09:24 Labs: Abnormal Lab Results - Last 24 Hours (Table) 09/07/22 09/07/22 09/08/22 Range/Units 16:00 21:21 03:19 WBC (3.8-10.6) k/uL RBC (4.30-5.90) m/uL Hgb (13.0-17.5) gm/dL Hct (39.0-53.0) % Neutrophils # (1.3-7.7) k/uL Lymphocytes # (1.0-4.8) k/uL Sodium 146 H (137-145) mmol/L Chloride 113 H (98-107) mmol/L Glucose 180 H (74-99) mg/dL POC Glucose (mg/dL) 176 H 186 H (70-110) mg/dL Calcium 8.0 L (8.4-10.2) mg/dL 09/08/22 09/08/22 09/08/22 Range/Units 03:19 06:36 11:57 WBC 15.8 H (3.8-10.6) k/uL RBC 3.55 L (4.30-5.90) m/uL Hgb 9.7 L (13.0-17.5) gm/dL Hct 31.0 L (39.0-53.0) % Neutrophils # 13.8 H (1.3-7.7) k/uL Lymphocytes # 0.8 L (1.0-4.8) k/uL Sodium (137-145) mmol/L Chloride (98-107) mmol/L Glucose (74-99) mg/dL POC Glucose (mg/dL) 192 H 271 H (70-110) mg/dL Calcium (8.4-10.2) mg/dL Microbiology - Last 24 Hours (Table) 09/04/22 18:21 Blood Culture - Preliminary Blood 09/04/22 19:50 Gram Stain - Preliminary Peritoneal Fluid Body Fluid Culture - Preliminary Escherichia coli Pseudomonas aeruginosa Enterococcus faecium 09/04/22 19:50 Anaerobic Culture - Preliminary Peritoneal Fluid Abdominal x-ray: report reviewed Assessment and Plan (1) Colon adenocarcinoma Current Visit: Yes Status: Acute Priority: High Code(s): C18.9 - MALIGNANT NEOPLASM OF COLON, UNSPECIFIED SNOMED Code(s): 004597726 Plan: Colon adenocarcinoma -Dr. Finn reviewed the pathology results with the patient. Based on mucinous features of the tumor, 6 lymph nodes sampled and tumor eroding through the colon adhered to the small bowel the recommendation is for adjuvant treatment. Patient is a very high risk for malignant cells to have detached from the primary tumor. Patient verbalized understanding the reasoning behind adjuvant treatment. -Treatment will not begin for at least 4 weeks postop. Patient will be reassessed in the office in about 3-1/2 weeks to see how he is doing -Defer postop care to surgery -Sepsis, ICU care, defer to [employer] Technician attests: I have seen and examined patient, performed H&P, developed impression and plan of care. Discussed with dictator. Agree with documentation, dictated as a scribe Time with Patient: Greater than 30
[2022-09-08 17:14] LABS: Glucose,Whole Blood 155 mg/dL (70-110)
[2022-09-08] MEDS: METOPROLOL TARTRATE 5 MG/5 ML VIAL IVP SCH (18:13)
[2022-09-08] MEDS: INSULIN DETEMIR (LEVEMIR) 100 UNIT/ML SYR SQ SCH (21:46)
--- NOTE | 2022-09-08 22:40 | P.PN ---
Subjective Progress Note Date: 09/08/22 Principal diagnosis: Intra-abdominal abscess Patient is a 52-year-old male presenting to the hospital with abdominal pain has been diagnosed with an intra-abdominal abscess from perforated diverticulum status post laparotomy and drainage of the abscess. n today's evaluation that is 09/08/2022, the patient did have fever this morning of 101.9 F, the patient is currently breathing comfortably on room air denies any chest pain or shortness of breath or cough abdominal pain is currently controlled and the patient mention he did have a bowel movement Objective - Vital Signs Vital signs: Vital Signs Temp 101.9 F H 09/08/22 08:00 Pulse 117 H 09/08/22 10:00 Resp 23 09/08/22 10:00 BP 151/98 09/08/22 10:00 Pulse Ox 97 09/08/22 10:00 FiO2 40 09/05/22 12:00 Intake & Output 09/07/22 09/08/22 09/08/22 18:59 06:59 18:59 Intake Total 2718 3815 1082 Output Total 1110 1430 0 Balance 1608 2385 1082 Weight 104.8 kg Intake: IV 100 874 ACETAMINOPHEN IV (For NPO 100 ) 1,000 mg In Empty Bag 1 bag @ 400 mls/hr IVPB Q6HR [facility] Rx#:[id number] DAPTOmycin 500 mg In 50 Sodium Chloride 0.9% 50 ml @ 100 mls/hr IVPB Q24HR [facility] Rx#:[id number] Dextrose 5% in Water 1, 300 000 ml @ 100 mls/hr IV . Q10H [facility] Rx#:[id number] Piperacillin-Tazobactam 3 100 .375 gm In Sodium Chloride 0.9% 100 ml @ 25 mls/hr IVPB Q8HR [facility] Rx# :[id number] Potassium Acetate 8 meq 324 Calcium Gluconate 1 gm Potassium Phosphate 15 mmol In Amino Acids 5 %/ Dextrose 20 % 1,000 ml @ 108 mls/hr IV .BY DURATION [facility] Rx#: [id number] Sodium Chloride 0.9% 1, 100 000 ml @ 100 mls/hr IV . Q10H [facility] Rx#:[id number] Intake, IV Titration 2618 3815 208 Amount ACETAMINOPHEN IV (For NPO 100 ) 1,000 mg In Empty Bag 1 bag @ 400 mls/hr IVPB Q6HR [facility] Rx#:[id number] Dextrose 5% in Water 1, 1000 1200 100 000 ml @ 100 mls/hr IV . Q10H [facility] Rx#:[id number] Mvi, Adult No.4 with Vit 972 108 108 K 10 ml Trace (Conc-1Ml/ Dose) 1 ml Potassium Acetate 8 meq Calcium Gluconate 1 gm Potassium Phosphate 15 mmol In Amino Acids 5 %/Dextrose 20 % 1,000 ml @ 108 mls/ hr IV .BY DURATION [facility] Rx #:[id number] Mvi, Adult No.4 with Vit 138 K 10 ml Trace (Conc-1Ml/ Dose) 1 ml Sodium Chloride 4Meq/ml Vial 10 meq Potassium Acetate 30 meq Calcium Gluconate 1 gm Sodium Phosphate 15 mmol In Amino Acids 5 %/ Dextrose 20 % 1,000 ml @ 108 mls/hr IV .BY DURATION [facility] Rx#: [id number] Piperacillin-Tazobactam 3 200 100 .375 gm In Sodium Chloride 0.9% 100 ml @ 25 mls/hr IVPB Q8HR [facility] Rx# :[id number] Potassium Acetate 8 meq 108 2207 Calcium Gluconate 1 gm Potassium Phosphate 15 mmol In Amino Acids 5 %/ Dextrose 20 % 1,000 ml @ 108 mls/hr IV .BY DURATION [facility] Rx#: [id number] Potassium Chloride 10 meq 200 In Water For Injection 1 100ml.bag @ 100 mls/hr IVPB Q1H [facility] Rx#: [id number] Sodium Chloride 0.9% 1, 100 000 ml @ 100 mls/hr IV . Q10H [facility] Rx#:[id number] Output: Drainage 80 Left Lower Abdomen 80 Urine 1110 1350 0 Other: Voiding Method Indwelling Catheter Indwelling Catheter # Voids 1 ABP, PAP, CO, CI - Last Documented Arterial Blood Pressure 158/44 - Exam GENERAL DESCRIPTION: A middle-age male lying in bed in no distress RESPIRATORY SYSTEM: Unlabored breathing , decreased breath sounds at bases HEART: S1 S2 regular rate and rhythm , ABDOMEN: Soft , mild distention and tenderness EXTREMITIES: No edema feet - Labs CBC & Chem 7: 09/08/22 03:19 09/08/22 17:10 Labs: Abnormal Lab Results - Last 24 Hours (Table) 09/07/22 09/07/22 09/07/22 Range/Units 12:48 16:00 21:21 WBC (3.8-10.6) k/uL RBC (4.30-5.90) m/uL Hgb (13.0-17.5) gm/dL Hct (39.0-53.0) % Neutrophils # (1.3-7.7) k/uL Lymphocytes # (1.0-4.8) k/uL Sodium (137-145) mmol/L Chloride (98-107) mmol/L Glucose (74-99) mg/dL POC Glucose (mg/dL) 163 H 176 H 186 H (70-110) mg/dL Calcium (8.4-10.2) mg/dL 09/08/22 09/08/22 09/08/22 Range/Units 03:19 03:19 06:36 WBC 15.8 H (3.8-10.6) k/uL RBC 3.55 L (4.30-5.90) m/uL Hgb 9.7 L (13.0-17.5) gm/dL Hct 31.0 L (39.0-53.0) % Neutrophils # 13.8 H (1.3-7.7) k/uL Lymphocytes # 0.8 L (1.0-4.8) k/uL Sodium 146 H (137-145) mmol/L Chloride 113 H (98-107) mmol/L Glucose 180 H (74-99) mg/dL POC Glucose (mg/dL) 192 H (70-110) mg/dL Calcium 8.0 L (8.4-10.2) mg/dL Microbiology - Last 24 Hours (Table) 09/04/22 19:50 Gram Stain - Preliminary Peritoneal Fluid Body Fluid Culture - Preliminary Escherichia coli Pseudomonas aeruginosa Enterococcus faecium 09/04/22 19:50 Anaerobic Culture - Preliminary Peritoneal Fluid 09/04/22 18:21 Blood Culture - Preliminary Blood Assessment and Plan (1) Intra-abdominal abscess Current Visit: Yes Status: Acute Code(s): K65.1 - PERITONEAL ABSCESS SNOMED Code(s): 38748763 Plan: 1patient with sepsis in this patient who did have a fever tachycardia elevated white count source is intra-abdominal in this patient with evidence of colonic diverticular perforation intra-abdominal abscess status post laparotomy drainage of the abscess and primary anastomosis , cultures growing gram negative And is also growing Enterococcus faecium with ID and sensitivities pending. 2keeping in mind the patient running fever White count is slightly increased we will go ahead and add daptomycin to cover for Enterococcus and continue with the Zosyn further adjustment of antibiotic on the basis of final sensitivity Time with Patient: Less than 30
[2022-09-08 23:53] LABS: Glucose,Whole Blood 177 mg/dL (70-110)
[2022-09-09] MEDS: METOPROLOL TARTRATE 5 MG/5 ML VIAL IVP SCH ×5 (00:24→23:53)
[2022-09-09] MEDS: METOCLOPRAMIDE 5 MG/ML 2 ML VIAL IVP SCH ×4 (00:24→18:42)
[2022-09-09] MEDS: INSULIN ASPART (NovoLOG) 100 UNIT/ML VIAL SQ SCH ×4 (00:25→18:25)
[2022-09-09] MEDS: PIPERACILLIN-TAZOBACTAM 3.375 GM in SODIUM CHLORIDE 0.9% 100 ML IVPB SCH ×4 (00:25→23:52)
[2022-09-09] MEDS: [UNRECOGNIZED DRUG - REMARK] IV SCH ×6 (01:43)
[2022-09-09] MEDS: HYDROmorphone 0.5 MG/0.5 ML SYRINGE IVP PRN ×6 (03:34→23:53)
[2022-09-09] MEDS: DEXTROSE 5% IN WATER 1,000 ML IV SCH (03:45)
[2022-09-09 04:02] LABS: Basophils % (A) 0 %; Eosinophils # (A) 0.4 k/uL (0-0.7); Eosinophils % (A) 2 %; HGB 9.4 gm/dL (13.0-17.5); Lymphocytes # (A) 0.9 k/uL (1.0-4.8); Lymphocytes % (A) 5 %; MCH 26.7 pg (25.0-35.0); MCHC 31.4 g/dL (31.0-37.0); Mean Platelet Volume 9.8; Monocytes # (A) 0.5 k/uL (0-1.0); Monocytes % (A) 2 %; Neutrophils # (A) 17.4 k/uL (1.3-7.7); Neutrophils % (A) 88 %; Platelet Count 245 k/uL (150-450); RBC 3.52 m/uL (4.30-5.90); RDW 14.8 % (11.5-15.5); WBC 19.7 k/uL (3.8-10.6)
[2022-09-09 04:09] LABS: African American GFR (CKD) >90 (>60 ml/min/1.73 sqM); Anion Gap 8 mmol/L; Blood Urea Nitrogen 14 mg/dL (9-20); Carbon Dioxide 24 mmol/L (22-30); Chloride 109 mmol/L (98-107); Glucose 139 mg/dL (74-99); Magnesium 1.8 mg/dL (1.6-2.3); Non-African American GFR(CKD) >90 (>60 ml/min/1.73 sqM); Phosphorus 3.3 mg/dL (2.5-4.5); Potassium 3.9 mmol/L (3.5-5.1); Sodium 141 mmol/L (137-145)
[2022-09-09 06:10] LABS: Glucose,Whole Blood 128 mg/dL (70-110)
[2022-09-09] MEDS: DEXTROSE 5% IN WATER 1,000 ML IV ONE ×2 (09:00→21:05)
[2022-09-09] MEDS: PANTOPRAZOLE 40 MG/10 ML VIAL IV SCH (09:22)
[2022-09-09] MEDS: HEPARIN SODIUM,PORCINE/PF 5,000 UNIT/0.5 ML SYRINGE SQ SCH ×2 (09:23→20:57)
[2022-09-09] MEDS: DAPTOmycin 500 MG in SODIUM CHLORIDE 0.9% 50 ML IVPB SCH (09:24)
[2022-09-09] MEDS: SIMETHICONE 80 MG CHEWABLE PO SCH ×4 (09:25→21:00)
[2022-09-09] MEDS ORDERED: MAGNESIUM SULFATE-D5W PMX 1 GM in DEXTROSE/WATER 1 100ML.BAG IVPB ONE (09:30)
--- NOTE | 2022-09-09 09:33 | P.PN ---
Subjective Patient is seen in follow-up for acute kidney injury. Renal function at baseline. Nonoliguric. On D5W. Sodium level trending down. Receiving TPN. Vital signs are stable. General: No acute distress. HEENT: Head exam is unremarkable. LUNGS: No audible rhonchi or wheezes. HEART: Tachycardic. ABDOMEN: SARAI Drain noted. EXTREMITITES: No edema. Objective - Vital Signs Vital signs: Vital Signs Temp 99.1 F 09/09/22 04:00 Pulse 116 H 09/09/22 07:00 Resp 30 H 09/09/22 07:00 BP 142/85 09/09/22 07:00 Pulse Ox 98 09/09/22 07:00 FiO2 40 09/05/22 12:00 Intake & Output 09/08/22 09/09/22 09/09/22 18:59 06:59 18:59 Intake Total 2954 3421 208 Output Total 835 1050 0 Balance 2119 2371 208 Weight 104.8 kg 106.6 kg Intake: IV 2746 2388 208 ACETAMINOPHEN IV (For NPO 100 ) 1,000 mg In Empty Bag 1 bag @ 400 mls/hr IVPB Q6HR [facility] Rx#:[id number] DAPTOmycin 500 mg In 50 Sodium Chloride 0.9% 50 ml @ 100 mls/hr IVPB Q24HR [facility] Rx#:[id number] Dextrose 5% in Water 1, 1200 1100 100 000 ml @ 100 mls/hr IV . Q10H [facility] Rx#:[id number] Piperacillin-Tazobactam 3 100 100 .375 gm In Sodium Chloride 0.9% 100 ml @ 25 mls/hr IVPB Q8HR [facility] Rx# :[id number] Potassium Acetate 8 meq 1296 1188 108 Calcium Gluconate 1 gm Potassium Phosphate 15 mmol In Amino Acids 5 %/ Dextrose 20 % 1,000 ml @ 108 mls/hr IV .BY DURATION [facility] Rx#: [id number] Intake, IV Titration 208 1033 Amount Dextrose 5% in Water 1, 100 000 ml @ 100 mls/hr IV . Q10H [facility] Rx#:[id number] Mvi, Adult No.4 with Vit 1033 K 10 ml Trace (Conc-1Ml/ Dose) 1 ml Potassium Acetate 14 meq Calcium Gluconate 1 gm Potassium Phosphate 15 mmol In Amino Acids 5 %/Dextrose 20 % 1,000 ml @ 108 mls/ hr IV .BY DURATION [facility] Rx #:[id number] Mvi, Adult No.4 with Vit 108 K 10 ml Trace (Conc-1Ml/ Dose) 1 ml Potassium Acetate 8 meq Calcium Gluconate 1 gm Potassium Phosphate 15 mmol In Amino Acids 5 %/Dextrose 20 % 1,000 ml @ 108 mls/ hr IV .BY DURATION [facility] Rx #:[id number] Output: Drainage 15 Left Lower Abdomen 15 Urine 820 1050 0 Other: Voiding Method Urinal Urinal # Bowel Movements 1 ABP, PAP, CO, CI - Last Documented Arterial Blood Pressure 158/44 - Labs CBC & Chem 7: 09/09/22 03:35 09/09/22 03:35 Labs: Abnormal Lab Results - Last 24 Hours (Table) 09/08/22 09/08/22 09/08/22 Range/Units 11:57 17:12 23:52 WBC (3.8-10.6) k/uL RBC (4.30-5.90) m/uL Hgb (13.0-17.5) gm/dL Hct (39.0-53.0) % Neutrophils # (1.3-7.7) k/uL Lymphocytes # (1.0-4.8) k/uL Chloride (98-107) mmol/L Glucose (74-99) mg/dL POC Glucose (mg/dL) 271 H 155 H 177 H (70-110) mg/dL Calcium (8.4-10.2) mg/dL 09/09/22 09/09/22 09/09/22 Range/Units 03:35 03:35 06:09 WBC 19.7 H (3.8-10.6) k/uL RBC 3.52 L (4.30-5.90) m/uL Hgb 9.4 L (13.0-17.5) gm/dL Hct 30.0 L (39.0-53.0) % Neutrophils # 17.4 H (1.3-7.7) k/uL Lymphocytes # 0.9 L (1.0-4.8) k/uL Chloride 109 H (98-107) mmol/L Glucose 139 H (74-99) mg/dL POC Glucose (mg/dL) 128 H (70-110) mg/dL Calcium 8.0 L (8.4-10.2) mg/dL Microbiology - Last 24 Hours (Table) 09/04/22 18:21 Blood Culture - Preliminary Blood Assessment and Plan Plan: Assessment: 1. Acute kidney injury secondary to ATN secondary to severe sepsis. Creatinine 2.1 on admission and is 0.78 today. Nonoliguric. UA fairly benign. No hydronephrosis noted on CAT scan. 2. Pneumoperitoneum status post lysis of lesions, right hemicolectomy and drainage of intra-abdominal abscess on 09/04/2022. 3. History of colon cancer. 4. Severe sepsis secondary to abdominal abscess. On antibiotics. 5. Hypernatremia from lack of free water intake. Improving with D5W. Plan: Decreased rate of D5W to 50 mL an hour. Continue to monitor renal function and urine output. Avoid nephrotoxins. TPN per surgery.
[2022-09-09] MEDS ORDERED: 1: MVI, ADULT NO.4 WITH VIT K 10 ML, TRACE (CONC-1ML/DOSE) 1 ML, SODIUM ACETATE 10 MEQ, IV SCH ×8 (09:45)
--- NOTE | 2022-09-09 10:41 | P.PN ---
Subjective Progress Note Date: 09/09/22 This is a 52-year-old -Citizen Of [place] male with history of colon cancer, status post right hemicolectomy for cecal colon cancer on 08/29/2022. Patient was discharged uneventfully on Percocet and Motrin for pain control. Patient was readmitted on 09/03/2022, he was mostly admitted with abdominal pain, distention, nausea and vomiting which started a few days prior to his admission. Patient was seen by surgery on consultation, and he was found to have acute pneumoperitoneum. Yesterday, the patient underwent robotic-assisted laparoscopic extensive lysis of adhesions open exploratory laparotomy with right hemicolectomy and primary anastomosis drainage of abdominal abscess abdominal peritoneal lavage, Margarita spent of a SARAI drain in the pelvis and placement of the incisional wound VAC system. I was notified about this patient from Dr. Moeller yesterday, and considering his abdominal sepsis presentation considering his surgical findings considering the patient was not extubated postoperatively, we admitted the patient to the ICU, manage his ventilator overnight, and I'm evaluating the patient today on consultation. Patient had a relatively uneventful night, did not require any pressors, he did receive fluids and he seems to be hemodynamically stable, remains on mechanical ventilation. His ventilator settings at this point are assist control rate of 18 tidal volume 500 FiO2 40% and PEEP of 5 recent ABG showed a pO2 of 79 pCO2 39 pH of 7.42 patient is on vancomycin and Zosyn for his abdominal sepsis he is on propofol at 65 mcg/kg/m he has good urine output roughly 30-50 mL per hour. Patient has a nasogastric tube applied to suction and he has a wound VAC. He also has a SARAI drain noted. Patient is sedated and calm, however I would recommend a trial of sedation interruption and possibly weaning parameters, if tolerated may consider further weaning and extubation today. Labs today showed relatively normal CBC WBC count is 8.6 hemoglobin is 10.4. Elect lites are normal BUN is 23 creatinine 1.36. Reevaluated today on 09/06/2022, patient remains in the ICU, patient was extub ated yesterday and he tolerated extubation well over the last 24 hours. He is on 2 L nasal cannula, not in any distress. Continues to have significant nasogastric output. Patient is to be started on TPN today. Doing better than expected overall. Remains on antibiotics for his abdominal sepsis. White count is 11.8 today hemoglobin is 9.6. Elect lites are normal renal profile is normal with a creatinine of 1.14, improving since admission from 2.14 on admission. Patient is compliant with his incentive spirometry and doing a good job with I- S. Reevaluated today on 09/07/2022, patient remains in the ICU, he feels generally weak, denies any shortness of breath, no cough, no wheezing. Continues to have nasogastric tube in place, and he had 1 50 mL of output overnight. Patient on TPN for nutritional support. His sodium was noted to be elevated today, and I recommended switching his IV fluid to D5W at 100 mL per hour. His labs otherwise are unremarkable. Patient is doing well with incentive spirometry, pain is fairly well controlled. Renal profile is normal, WBC count is 11.8 h emoglobin is 9.6 The patient is seen today 09/08/2022 in follow-up in the intensive care unit. He is currently resting comfortably in bed. Awake and alert in no acute distress. He is maintaining good O2 saturations in the mid 90s on room air. He is febrile with a temp of 101.9. Tachycardic. Hypertensive. Blood cultures pending. Abdominal x-ray revealed persistent markedly dilated small bowel loops. Peritoneal fluid cultures were positive for E. coli, Pseudomonas aeruginosa, enterococcus faecium. He remains nothing by mouth. He is continued on TPN and lipids. Antibiotics in the form of Zosyn and now daptomycin. Remains on heparin for DVT prophylaxis. He is up ambulating with assistance. The patient is seen today 09/09/2022 in follow-up in the intensive care unit. He is currently resting comfortably in bed. Awake and alert in no acute distress. White count 19.7. Hemoglobin 9.4. Platelets 245. Sodium 141. Potassium 3.9. Bicarb 24. BUN 14. Creatinine 0.78. Glucose 139. He is maintaining good O2 saturations in the mid 90s on room air. Continues with a low-grade fever currently at 100.8. Tachycardic. He is continued on TPN 108 ML's per hour. He has D5W it 100 ML's per hour. 0.9 normal setting at KVO. He is on antibiotics in the form of Zosyn and daptomycin. He is working well with the incentive spirometer. Remains on strict nothing by mouth per surgical services. Objective - Vital Signs Vital signs: Vital Signs Temp 100.8 F H 09/09/22 08:00 Pulse 117 H 09/09/22 10:00 Resp 28 H 09/09/22 10:00 BP 149/99 09/09/22 10:00 Pulse Ox 96 09/09/22 10:00 FiO2 40 09/05/22 12:00 Intake & Output 09/08/22 09/09/22 09/09/22 18:59 06:59 18:59 Intake Total 2954 3421 208 Output Total 835 1050 0 Balance 2119 2371 208 Weight 104.8 kg 106.6 kg Intake: IV 2746 2388 208 ACETAMINOPHEN IV (For NPO 100 ) 1,000 mg In Empty Bag 1 bag @ 400 mls/hr IVPB Q6HR PRN Rx#:[id number] DAPTOmycin 500 mg In 50 Sodium Chloride 0.9% 50 ml @ 100 mls/hr IVPB Q24HR [facility] Rx#:[id number] Dextrose 5% in Water 1, 1200 1100 100 000 ml @ 100 mls/hr IV . Q10H [facility] Rx#:[id number] Piperacillin-Tazobactam 3 100 100 .375 gm In Sodium Chloride 0.9% 100 ml @ 25 mls/hr IVPB Q8HR [facility] Rx# :[id number] Potassium Acetate 8 meq 1296 1188 108 Calcium Gluconate 1 gm Potassium Phosphate 15 mmol In Amino Acids 5 %/ Dextrose 20 % 1,000 ml @ 108 mls/hr IV .BY DURATION [facility] Rx#: [id number] Intake, IV Titration 208 1033 Amount Dextrose 5% in Water 1, 100 000 ml @ 100 mls/hr IV . Q10H [facility] Rx#:[id number] Mvi, Adult No.4 with Vit 1033 K 10 ml Trace (Conc-1Ml/ Dose) 1 ml Potassium Acetate 14 meq Calcium Gluconate 1 gm Potassium Phosphate 15 mmol In Amino Acids 5 %/Dextrose 20 % 1,000 ml @ 108 mls/ hr IV .BY DURATION [facility] Rx #:[id number] Mvi, Adult No.4 with Vit 108 K 10 ml Trace (Conc-1Ml/ Dose) 1 ml Potassium Acetate 8 meq Calcium Gluconate 1 gm Potassium Phosphate 15 mmol In Amino Acids 5 %/Dextrose 20 % 1,000 ml @ 108 mls/ hr IV .BY DURATION [facility] Rx #:[id number] Output: Drainage 15 Left Lower Abdomen 15 Urine 820 1050 0 Other: Voiding Method Urinal Urinal Urinal # Bowel Movements 1 ABP, PAP, CO, CI - Last Documented Arterial Blood Pressure 158/44 - Exam GENERAL EXAM: Alert, active, 52-year-old male patient, on room air, comfortable in no apparent distress. HEAD: Normocephalic. EYES: Normal reaction of pupils, equal size. NOSE: Nasogastric tube secured in place. Clear with pink turbinates. THROAT: No erythema or exudates. NECK: No masses, no JVD. CHEST: No chest wall deformity. LUNGS: Equal air entry with no crackles, wheeze, rhonchi or dullness. CVS: S1 and S2 normal with no audible murmur, regular rhythm. ABDOMEN: Midline incision with wound VAC intact. Serous purulent drainage. Increased abdominal distention. SPINE: No scoliosis or deformity SKIN: No rashes CENTRAL NERVOUS SYSTEM: No focal deficits, tone is normal in all 4 extremities. EXTREMITIES: There is no peripheral edema. No clubbing, no cyanosis. Peripheral pulses are intact. - Labs CBC & Chem 7: 09/09/22 03:35 09/09/22 03:35 Labs: Abnormal Lab Results - Last 24 Hours (Table) 09/08/22 09/08/22 09/08/22 Range/Units 11:57 17:12 23:52 WBC (3.8-10.6) k/uL RBC (4.30-5.90) m/uL Hgb (13.0-17.5) gm/dL Hct (39.0-53.0) % Neutrophils # (1.3-7.7) k/uL Lymphocytes # (1.0-4.8) k/uL Chloride (98-107) mmol/L Glucose (74-99) mg/dL POC Glucose (mg/dL) 271 H 155 H 177 H (70-110) mg/dL Calcium (8.4-10.2) mg/dL 09/09/22 09/09/22 09/09/22 Range/Units 03:35 03:35 06:09 WBC 19.7 H (3.8-10.6) k/uL RBC 3.52 L (4.30-5.90) m/uL Hgb 9.4 L (13.0-17.5) gm/dL Hct 30.0 L (39.0-53.0) % Neutrophils # 17.4 H (1.3-7.7) k/uL Lymphocytes # 0.9 L (1.0-4.8) k/uL Chloride 109 H (98-107) mmol/L Glucose 139 H (74-99) mg/dL POC Glucose (mg/dL) 128 H (70-110) mg/dL Calcium 8.0 L (8.4-10.2) mg/dL Microbiology - Last 24 Hours (Table) 09/04/22 18:21 Blood Culture - Preliminary Blood Assessment and Plan Assessment: Acute pneumoperitoneum, secondary to perforated colonic diverticulum and transverse colon Severe abdominal sepsis secondary to E. coli, pseudomonas aeruginosa, enterococcus faecium Febrile illness secondary to above, blood cultures pending History of colon cancer status post resection Acute kidney injury, improved Acute lactic acidosis secondary to sepsis Intra-abdominal abscess Abdominal ascites History of sarcoidosis Status post robotic-assisted laparoscopy with extensive lysis of adhesions, right hemicolectomy and primary anastomosis and drainage of abdominal abscess abdominal peritoneal lavage and placement of SARAI drain as well as incisional wound VAC system postoperative day #5 Sinus tachycardia secondary to sepsis Plan: The patient was seen and evaluated Currently stable from the critical care standpoint Labs and medications reviewed Continue Zosyn, daptomycin We will continue to follow I have personally seen and examined the patient, performed the documentation and the assessment and plan as written. Number of minutes spent on the visit: 10.
[2022-09-09 12:04] LABS: Glucose,Whole Blood 130 mg/dL (70-110)
--- NOTE | 2022-09-09 12:23 | P.PN ---
Subjective Progress Note Date: 09/09/22 Principal diagnosis: colon adenocarcinoma At today's visit patient is resting comfortably in bed. S/P hemicolectomy. Continues on Zosyn and daptomycin per infectious disease. Temperature of 100.8 this morning. WBC 19.7, hemoglobin 9.4, platelets are 45,000. Objective - Vital Signs Vital signs: Vital Signs Temp 100.8 F H 09/09/22 08:00 Pulse 118 H 09/09/22 11:00 Resp 20 09/09/22 11:00 BP 143/96 09/09/22 11:00 Pulse Ox 98 09/09/22 11:00 FiO2 40 09/05/22 12:00 Intake & Output 09/08/22 09/09/22 09/09/22 18:59 06:59 18:59 Intake Total 2954 3421 1248 Output Total 835 1050 600 Balance 2119 2371 648 Weight 104.8 kg 106.6 kg Intake: IV 2746 2388 1248 ACETAMINOPHEN IV (For NPO 100 ) 1,000 mg In Empty Bag 1 bag @ 400 mls/hr IVPB Q6HR PRN Rx#:[id number] DAPTOmycin 500 mg In 50 100 Sodium Chloride 0.9% 50 ml @ 100 mls/hr IVPB Q24HR [facility] Rx#:[id number] Dextrose 5% in Water 1, 1200 1100 200 000 ml @ 100 mls/hr IV . Q10H [facility] Rx#:[id number] Dextrose 5% in Water 1, 200 000 ml @ 50 mls/hr IV . Q20H [facility] Rx#:[id number] Piperacillin-Tazobactam 3 100 100 100 .375 gm In Sodium Chloride 0.9% 100 ml @ 25 mls/hr IVPB Q8HR [facility] Rx# :[id number] Potassium Acetate 8 meq 1296 1188 648 Calcium Gluconate 1 gm Potassium Phosphate 15 mmol In Amino Acids 5 %/ Dextrose 20 % 1,000 ml @ 108 mls/hr IV .BY DURATION [facility] Rx#: [id number] Intake, IV Titration 208 1033 Amount Dextrose 5% in Water 1, 100 000 ml @ 100 mls/hr IV . Q10H [facility] Rx#:[id number] Mvi, Adult No.4 with Vit 1033 K 10 ml Trace (Conc-1Ml/ Dose) 1 ml Potassium Acetate 14 meq Calcium Gluconate 1 gm Potassium Phosphate 15 mmol In Amino Acids 5 %/Dextrose 20 % 1,000 ml @ 108 mls/ hr IV .BY DURATION [facility] Rx #:[id number] Mvi, Adult No.4 with Vit 108 K 10 ml Trace (Conc-1Ml/ Dose) 1 ml Potassium Acetate 8 meq Calcium Gluconate 1 gm Potassium Phosphate 15 mmol In Amino Acids 5 %/Dextrose 20 % 1,000 ml @ 108 mls/ hr IV .BY DURATION [facility] Rx #:[id number] Output: Drainage 15 Left Lower Abdomen 15 Urine 820 1050 600 Other: Voiding Method Urinal Urinal Urinal # Bowel Movements 1 ABP, PAP, CO, CI - Last Documented Arterial Blood Pressure 158/44 - Constitutional General appearance: Present: average body habitus, no acute distress - EENT Eyes: Present: anicteric sclerae, EOMI ENT: Present: hearing grossly normal - Respiratory Details: breathing is even and unlabored - Cardiovascular Details: skin warm and dry - Integumentary Integumentary: Absent: cyanotic, rash - Neurologic Neurologic: Present: CNII-XII intact - Musculoskeletal Musculoskeletal: Present: strength equal bilaterally - Psychiatric Psychiatric: Present: A&O x's 3, appropriate affect, intact judgment & insight - Labs CBC & Chem 7: 09/09/22 03:35 09/09/22 03:35 Labs: Abnormal Lab Results - Last 24 Hours (Table) 09/08/22 09/08/22 09/09/22 Range/Units 17:12 23:52 03:35 WBC (3.8-10.6) k/uL RBC (4.30-5.90) m/uL Hgb (13.0-17.5) gm/dL Hct (39.0-53.0) % Neutrophils # (1.3-7.7) k/uL Lymphocytes # (1.0-4.8) k/uL Chloride 109 H (98-107) mmol/L Glucose 139 H (74-99) mg/dL POC Glucose (mg/dL) 155 H 177 H (70-110) mg/dL Calcium 8.0 L (8.4-10.2) mg/dL 09/09/22 09/09/22 09/09/22 Range/Units 03:35 06:09 11:53 WBC 19.7 H (3.8-10.6) k/uL RBC 3.52 L (4.30-5.90) m/uL Hgb 9.4 L (13.0-17.5) gm/dL Hct 30.0 L (39.0-53.0) % Neutrophils # 17.4 H (1.3-7.7) k/uL Lymphocytes # 0.9 L (1.0-4.8) k/uL Chloride (98-107) mmol/L Glucose (74-99) mg/dL POC Glucose (mg/dL) 128 H 130 H (70-110) mg/dL Calcium (8.4-10.2) mg/dL Microbiology - Last 24 Hours (Table) 09/04/22 18:21 Blood Culture - Preliminary Blood Assessment and Plan (1) Colon adenocarcinoma Current Visit: Yes Status: Acute Priority: High Code(s): C18.9 - MALIGNANT NEOPLASM OF COLON, UNSPECIFIED SNOMED Code(s): 948360816 Plan: Colon adenocarcinoma -S/p hemicolectomy on 09/02 -Dr. Finn reviewed the pathology results with the patient. Based on mucinous features of the tumor, 6 lymph nodes sampled and tumor eroding through the colon adhered to the small bowel the recommendation is for adjuvant treatment. Patient is a very high risk for malignant cells to have detached from the primary tumor. Patient verbalized understanding the reasoning behind adjuvant treatment. -Treatment will not begin for at least 4 weeks postop. Patient will be reassessed in the office in about 3-1/2 weeks to see how he is doing -Defer postop care to surgery -Sepsis, ICU care, defer to [facility]. Continues on daptomycin and zosyn
--- NOTE | 2022-09-09 13:23 | P.PN ---
Subjective Progress Note Date: 09/09/22 This is a 52 year old male monitored in the intensive care unit postoperative day #4 lysis of adhesions and right hemicolectomy due to bowel perforation. Patient had end to end anastamosis. Has not had bowel movement, had KUB xray today showing multiple dilated small bowel loops possible ileus vs. obstruction. General surgery recommending patient to be NPO at this time. Heart rate remains elevated in the 120s and patient switched to IV lopressor. Remains on IV daptomycin and IV zosyn for positive peritoneal fluid culture with E. Coli, enterococcus and pseudomonas. Blood culture negative so far. Patient remains on D5 water at 100 mls/hr, sodium is slightly improved today down to 146. Continues on TPN, NG tube has been discontinued. Accuchecks switched to Q6h and small dose of levemir HS has been added. SARAI drain in place with serous drainage. Patient febrile today up to 101.9, encouraged to continue with incentive spirometer. Patient has wound vac in place to continuous suction, plan to ambulate around the room and up in the chair today. 09/09/2022 Patient is evaluated today in the ICU resting in bed. Alert x 3. Asking about discharge. Repeat blood culture is pending patient remains on IV antibiotics. White count up to 19.7 today. Patient reports BM yesterday and passing some gas today. Abdomen is more distended. Surgery recommending NG tube today. Patient remains NPO. Midline incisional wound vac in place. Patient remains with fever, using incentive spirometer reaching 1200. Continues on TPN. Review of Systems Constitutional: Denied any fatigue denied any fever. Cardio vascular: denied any chest pain, palpitations Gastrointestinal: denied any nausea, vomiting, reports incisional abdominal pain, no BM, passing some gas. Pulmonary: Denied any shortness of breath cough Neurologic denied any new focal deficits, All inpatient medications were reviewed and appropriate changes in these medications as dictated in the interval history and assessment and plan. PHYSICAL EXAMINATION: GENERAL: The patient is alert and oriented x3, not in any acute distress. Well developed, well nourished. HEENT: Pupils are round and equally reacting to light. EOMI. No scleral icterus. No conjunctival pallor. Normocephalic, atraumatic. No pharyngeal erythema. No thyromegaly. CARDIOVASCULAR: S1 and S2 present. No murmurs, rubs, or gallops. PULMONARY: Chest is clear to auscultation, no wheezing or crackles. ABDOMEN: Soft, tender, distended, hypoactive bowel sounds. No palpable orga nomegaly. Post surgical, midline woundvac in place. More distended than yesterday. MUSCULOSKELETAL: No joint swelling or deformity. EXTREMITIES: No cyanosis, clubbing, or pedal edema. NEUROLOGICAL: Gross neurological examination did not reveal any focal deficits. Mild generalized weakness. SKIN: No rashes. Assessment Sepsis secondary to perforated diverticulum postoperative day #5 evacuation of abscess, lysis of adhesions, right hemicolectomy Postoperative ileus Colon cancer s/p resection on 08/29/2022 Acute kidney injury secondary to ATN and sepsis Fever and persistent sinus tachycardia Leukocytosis Hypernatremia Hx hyperlipidemia Sarcoidosis with asthma Nicotine use GI prophylaxis DVT prophylaxis Full Code Plan Continue IV antibiotics, infectious disease following closely Patient continues to be febrile and blood cultures have been repeated and pending Continue with TPN, patient is currently NPO and NG tube will be placed today Novolog s/s adjusted to Q6h and levemir at HS has been added. Blood glucose has improved. Continue IV metoprolol for the tachycardia Continues on D5 water and f/u labs tomorrow Encourage ambulation, increase activity level and incentive spirometer The impression and plan of care has been dictated by Misty Fairchild, Nurse Practitioner as directed. Dr. Kai MD I have performed a history and physical examination and medical decision making of this patient, discussed the same with the dictator, and agree with the dictators assessment and plan as written, documented as a scribe. Based on total visit time, I have performed more than 50% of this visit. Objective - Vital Signs Vital signs: Vital Signs Temp 99.8 F H 09/09/22 12:00 Pulse 113 H 09/09/22 13:00 Resp 19 09/09/22 13:00 BP 129/74 09/09/22 13:00 Pulse Ox 97 09/09/22 13:00 FiO2 40 09/05/22 12:00 Intake & Output 09/08/22 09/09/22 09/09/22 18:59 06:59 18:59 Intake Total 2954 3421 1298 Output Total 835 1050 600 Balance 2119 2371 698 Weight 104.8 kg 106.6 kg Intake: IV 4316 8918 1298 ACETAMINOPHEN IV (For NPO 100 ) 1,000 mg In Empty Bag 1 bag @ 400 mls/hr IVPB Q6HR [facility] Rx#:[id number] DAPTOmycin 500 mg In 50 100 Sodium Chloride 0.9% 50 ml @ 100 mls/hr IVPB Q24HR [facility] Rx#:[id number] Dextrose 5% in Water 1, 1200 1100 200 000 ml @ 100 mls/hr IV . Q10H [facility] Rx#:[id number] Dextrose 5% in Water 1, 250 000 ml @ 50 mls/hr IV . Q20H [facility] Rx#:[id number] Piperacillin-Tazobactam 3 100 100 100 .375 gm In Sodium Chloride 0.9% 100 ml @ 25 mls/hr IVPB Q8HR [facility] Rx# :[id number] Potassium Acetate 8 meq 1296 1188 648 Calcium Gluconate 1 gm Potassium Phosphate 15 mmol In Amino Acids 5 %/ Dextrose 20 % 1,000 ml @ 108 mls/hr IV .BY DURATION [facility] Rx#: [id number] Intake, IV Titration 208 1033 Amount Dextrose 5% in Water 1, 100 000 ml @ 100 mls/hr IV . Q10H [facility] Rx#:[id number] Mvi, Adult No.4 with Vit 1033 K 10 ml Trace (Conc-1Ml/ Dose) 1 ml Potassium Acetate 14 meq Calcium Gluconate 1 gm Potassium Phosphate 15 mmol In Amino Acids 5 %/Dextrose 20 % 1,000 ml @ 108 mls/ hr IV .BY DURATION [facility] Rx #:[id number] Mvi, Adult No.4 with Vit 108 K 10 ml Trace (Conc-1Ml/ Dose) 1 ml Potassium Acetate 8 meq Calcium Gluconate 1 gm Potassium Phosphate 15 mmol In Amino Acids 5 %/Dextrose 20 % 1,000 ml @ 108 mls/ hr IV .BY DURATION [facility] Rx #:[id number] Output: Drainage 15 Left Lower Abdomen 15 Urine 820 1050 600 Other: Voiding Method Urinal Urinal Urinal # Voids 1 # Bowel Movements 1 1 ABP, PAP, CO, CI - Last Documented Arterial Blood Pressure 158/44 - Labs CBC & Chem 7: 09/09/22 03:35 09/09/22 03:35 Labs: Abnormal Lab Results - Last 24 Hours (Table) 09/08/22 09/08/22 09/09/22 Range/Units 17:12 23:52 03:35 WBC (3.8-10.6) k/uL RBC (4.30-5.90) m/uL Hgb (13.0-17.5) gm/dL Hct (39.0-53.0) % Neutrophils # (1.3-7.7) k/uL Lymphocytes # (1.0-4.8) k/uL Chloride 109 H (98-107) mmol/L Glucose 139 H (74-99) mg/dL POC Glucose (mg/dL) 155 H 177 H (70-110) mg/dL Calcium 8.0 L (8.4-10.2) mg/dL 09/09/22 09/09/22 09/09/22 Range/Units 03:35 06:09 11:53 WBC 19.7 H (3.8-10.6) k/uL RBC 3.52 L (4.30-5.90) m/uL Hgb 9.4 L (13.0-17.5) gm/dL Hct 30.0 L (39.0-53.0) % Neutrophils # 17.4 H (1.3-7.7) k/uL Lymphocytes # 0.9 L (1.0-4.8) k/uL Chloride (98-107) mmol/L Glucose (74-99) mg/dL POC Glucose (mg/dL) 128 H 130 H (70-110) mg/dL Calcium (8.4-10.2) mg/dL Microbiology - Last 24 Hours (Table) 09/04/22 18:21 Blood Culture - Preliminary Blood Assessment and Plan Time with Patient: Less than 30
[2022-09-09] MEDS: 1: MVI, ADULT NO.4 WITH VIT K 10 ML, TRACE (CONC-1ML/DOSE) 1 ML, SODIUM ACETATE 10 MEQ, IV SCH ×8 (14:23)
[2022-09-09] MEDS ORDERED: LIDOCAINE 1% INJ 10MG/ML (5 ML VIAL-PF) SQ ONE ×2 (14:38→14:56)
--- NOTE | 2022-09-09 15:01 | P.PN ---
Subjective Progress Note Date: 09/09/22 CHIEF COMPLAINT: Pneumoperitoneum, abdominal pain HISTORY OF PRESENT ILLNESS: Patient is currently in the ICU.The patient is a 52-year-old male status post right hemicolectomy for colon cancer 08/29/2022. He was discharged from the hospital without sequelae 08/31/2022 and returned to the hospital 09/03/2022 for pneumoperitoneum. He is status post exploratory laparotomy, lysis of adhesions, evacuation of intra-abdominal abscess, right hemicolectomy for resection of perforated transverse colon diverticulum, 09/04/2022. He did have some flatus yesterday evening. No bowel movements. Patient reports that his abdominal pain is improving. He is distended. He had 2 bowel movements yesterday. NG tube is currently out. Did have a temp of 101.3 last night. He has been tachycardic. Patient's white count is up from 15-19.7 Hgb 9.4 platelets 245 seconds 141 potassium is 3.9 creatinine 0.78 magnesium 1.8. KUB x-ray shows persistent markedly dilated small bowel loops or postoperative ileus/obstruction. Patient evaluated by oncology the recommending adjuvant treatment in 4 weeks postoperatively. Nursing staff did attempt to place NG tube multiple times. Patient has had 2 bowel movements since. As of now they have been unable to place NG tube. PHYSICAL EXAM: VITAL SIGNS: Reviewed GENERAL: Well-developed in no acute distress. HEENT: No sclera icterus. Extraocular movements grossly intact. Moist buccal mucosa. Head is atraumatic, normocephalic. Hears conversational speech. No nasal drainage. NECK: Supple without lymphadenopathy. CHEST: Non-labored respirations and equal bilateral excursions. CARDIOVASCULAR: Palpable 2+ radial pulses. ABDOMEN: Distended. Prevana wound vac on midline incisin. MUSCULOSKELETAL: No clubbing or cyanosis. NEUROLOGIC: No focal or lateralizing signs. Cranial nerves II through XII grossly intact. PSYCH: Appropriate affect. Alert and oriented to person, place and time. SKIN: Well perfused. Good skin turgor. ASSESSMENT: 1. Pneumoperitoneum due to perforated diverticulum 2. Tachycardia with fevers consistent with sepsis 3. Acute kidney injury, failure due to severe sepsis. kidney function improved 4. Colon cancer status post resection 5. Ileus PLAN: -Continue ICU management -Continue supportive care -Keep patient nothing by mouth -Continue Reglan scheduled for ileus -Continue antibiotics -Continue TPN for nutrition support -DVT prophylaxis subcu heparin Physician Doctor Of Podiatry note has been reviewed by physician. Signing provider agrees with the documented findings, assessment, and plan of care. Objective - Vital Signs Vital signs: Vital Signs Temp 100.8 F H 09/09/22 08:00 Pulse 118 H 09/09/22 11:00 Resp 20 09/09/22 11:00 BP 143/96 09/09/22 11:00 Pulse Ox 98 09/09/22 11:00 FiO2 40 09/05/22 12:00 Intake & Output 09/08/22 09/09/22 09/09/22 18:59 06:59 18:59 Intake Total 2954 3421 1090 Output Total 835 1050 0 Balance 2119 2371 1090 Weight 104.8 kg 106.6 kg Intake: IV 2746 2388 1090 ACETAMINOPHEN IV (For NPO 100 ) 1,000 mg In Empty Bag 1 bag @ 400 mls/hr IVPB Q6HR PRN Rx#:[id number] DAPTOmycin 500 mg In 50 100 Sodium Chloride 0.9% 50 ml @ 100 mls/hr IVPB Q24HR [facility] Rx#:[id number] Dextrose 5% in Water 1, 1200 1100 200 000 ml @ 100 mls/hr IV . Q10H [facility] Rx#:[id number] Dextrose 5% in Water 1, 150 000 ml @ 50 mls/hr IV . Q20H [facility] Rx#:[id number] Piperacillin-Tazobactam 3 100 100 100 .375 gm In Sodium Chloride 0.9% 100 ml @ 25 mls/hr IVPB Q8HR [facility] Rx# :[id number] Potassium Acetate 8 meq 1296 1188 540 Calcium Gluconate 1 gm Potassium Phosphate 15 mmol In Amino Acids 5 %/ Dextrose 20 % 1,000 ml @ 108 mls/hr IV .BY DURATION [facility] Rx#: [id number] Intake, IV Titration 208 1033 Amount Dextrose 5% in Water 1, 100 000 ml @ 100 mls/hr IV . Q10H [facility] Rx#:[id number] Mvi, Adult No.4 with Vit 1033 K 10 ml Trace (Conc-1Ml/ Dose) 1 ml Potassium Acetate 14 meq Calcium Gluconate 1 gm Potassium Phosphate 15 mmol In Amino Acids 5 %/Dextrose 20 % 1,000 ml @ 108 mls/ hr IV .BY DURATION [facility] Rx #:[id number] Mvi, Adult No.4 with Vit 108 K 10 ml Trace (Conc-1Ml/ Dose) 1 ml Potassium Acetate 8 meq Calcium Gluconate 1 gm Potassium Phosphate 15 mmol In Amino Acids 5 %/Dextrose 20 % 1,000 ml @ 108 mls/ hr IV .BY DURATION [facility] Rx #:[id number] Output: Drainage 15 Left Lower Abdomen 15 Urine 820 1050 0 Other: Voiding Method Urinal Urinal Urinal # Bowel Movements 1 ABP, PAP, CO, CI - Last Documented Arterial Blood Pressure 158/44 - Labs CBC & Chem 7: 09/09/22 03:35 09/09/22 03:35 Labs: Abnormal Lab Results - Last 24 Hours (Table) 09/08/22 09/08/22 09/08/22 Range/Units 11:57 17:12 23:52 WBC (3.8-10.6) k/uL RBC (4.30-5.90) m/uL Hgb (13.0-17.5) gm/dL Hct (39.0-53.0) % Neutrophils # (1.3-7.7) k/uL Lymphocytes # (1.0-4.8) k/uL Chloride (98-107) mmol/L Glucose (74-99) mg/dL POC Glucose (mg/dL) 271 H 155 H 177 H (70-110) mg/dL Calcium (8.4-10.2) mg/dL 09/09/22 09/09/22 09/09/22 Range/Units 03:35 03:35 06:09 WBC 19.7 H (3.8-10.6) k/uL RBC 3.52 L (4.30-5.90) m/uL Hgb 9.4 L (13.0-17.5) gm/dL Hct 30.0 L (39.0-53.0) % Neutrophils # 17.4 H (1.3-7.7) k/uL Lymphocytes # 0.9 L (1.0-4.8) k/uL Chloride 109 H (98-107) mmol/L Glucose 139 H (74-99) mg/dL POC Glucose (mg/dL) 128 H (70-110) mg/dL Calcium 8.0 L (8.4-10.2) mg/dL Microbiology - Last 24 Hours (Table) 09/04/22 18:21 Blood Culture - Preliminary Blood
--- NOTE | 2022-09-09 15:45 | XR ---
EXAMINATION TYPE: XR chest 1V portable DATE OF EXAM: 09/09/2022 COMPARISON: NONE HISTORY: Picc TECHNIQUE: Single frontal view of the chest is obtained. FINDINGS: PICC line appears in good position with the tip overlying the SVC. There is a right-sided central venous catheter overlying the right atrium. Bilateral consolidation small effusion is improve d. ET and NG tube have been removed. No overt failure or pneumothorax. IMPRESSION: 1. PICC line in good position. 2. Improving bilateral infiltrate and small effusion.
[2022-09-09] MEDS: ONDANSETRON 4 MG/2 ML VIAL IVP PRN (17:04)
[2022-09-09 17:22] LABS: Glucose,Whole Blood 149 mg/dL (70-110)
[2022-09-09] MEDS: INSULIN DETEMIR (LEVEMIR) 100 UNIT/ML SYR SQ SCH (20:58)
--- NOTE | 2022-09-09 21:42 | P.PN ---
Subjective Progress Note Date: 09/09/22 Principal diagnosis: Intra-abdominal abscess Patient is a 52-year-old male presenting to the hospital with abdominal pain has been diagnosed with an intra-abdominal abscess from perforated diverticulum status post laparotomy and drainage of the abscess. n today's evaluation that is 09/09/2022, the patient fever pattern has improved with a fever of 100.8Fon this morning, the patient is currently breathing comfortably on room air , the patient denies any chest pain or shortness of breath or cough abdominal pain is currently controlled and the patient mention he did have a bowel movement yesterday as well as today Objective - Vital Signs Vital signs: Vital Signs Temp 100.8 F H 09/09/22 08:00 Pulse 118 H 09/09/22 11:00 Resp 20 09/09/22 11:00 BP 143/96 09/09/22 11:00 Pulse Ox 98 09/09/22 11:00 FiO2 40 09/05/22 12:00 Intake & Output 09/08/22 09/09/22 09/09/22 18:59 06:59 18:59 Intake Total 2954 3421 1090 Output Total 835 1050 0 Balance 2119 2371 1090 Weight 104.8 kg 106.6 kg Intake: IV 2746 2388 1090 ACETAMINOPHEN IV (For NPO 100 ) 1,000 mg In Empty Bag 1 bag @ 400 mls/hr IVPB Q6HR PRN Rx#:[id number] DAPTOmycin 500 mg In 50 100 Sodium Chloride 0.9% 50 ml @ 100 mls/hr IVPB Q24HR [facility] Rx#:[id number] Dextrose 5% in Water 1, 1200 1100 200 000 ml @ 100 mls/hr IV . Q10H [facility] Rx#:[id number] Dextrose 5% in Water 1, 150 000 ml @ 50 mls/hr IV . Q20H [facility] Rx#:[id number] Piperacillin-Tazobactam 3 100 100 100 .375 gm In Sodium Chloride 0.9% 100 ml @ 25 mls/hr IVPB Q8HR [facility] Rx# :[id number] Potassium Acetate 8 meq 1296 1188 540 Calcium Gluconate 1 gm Potassium Phosphate 15 mmol In Amino Acids 5 %/ Dextrose 20 % 1,000 ml @ 108 mls/hr IV .BY DURATION [facility] Rx#: [id number] Intake, IV Titration 208 1033 Amount Dextrose 5% in Water 1, 100 000 ml @ 100 mls/hr IV . Q10H [facility] Rx#:[id number] Mvi, Adult No.4 with Vit 1033 K 10 ml Trace (Conc-1Ml/ Dose) 1 ml Potassium Acetate 14 meq Calcium Gluconate 1 gm Potassium Phosphate 15 mmol In Amino Acids 5 %/Dextrose 20 % 1,000 ml @ 108 mls/ hr IV .BY DURATION [facility] Rx #:[id number] Mvi, Adult No.4 with Vit 108 K 10 ml Trace (Conc-1Ml/ Dose) 1 ml Potassium Acetate 8 meq Calcium Gluconate 1 gm Potassium Phosphate 15 mmol In Amino Acids 5 %/Dextrose 20 % 1,000 ml @ 108 mls/ hr IV .BY DURATION [facility] Rx #:[id number] Output: Drainage 15 Left Lower Abdomen 15 Urine 820 1050 0 Other: Voiding Method Urinal Urinal Urinal # Bowel Movements 1 ABP, PAP, CO, CI - Last Documented Arterial Blood Pressure 158/44 - Exam GENERAL DESCRIPTION: A middle-age male lying in bed in no distress RESPIRATORY SYSTEM: Unlabored breathing , decreased breath sounds at bases HEART: S1 S2 regular rate and rhythm , ABDOMEN: Soft , mild distention and tenderness EXTREMITIES: No edema feet - Labs CBC & Chem 7: 09/09/22 03:35 09/09/22 03:35 Labs: Abnormal Lab Results - Last 24 Hours (Table) 09/08/22 09/08/22 09/08/22 Range/Units 11:57 17:12 23:52 WBC (3.8-10.6) k/uL RBC (4.30-5.90) m/uL Hgb (13.0-17.5) gm/dL Hct (39.0-53.0) % Neutrophils # (1.3-7.7) k/uL Lymphocytes # (1.0-4.8) k/uL Chloride (98-107) mmol/L Glucose (74-99) mg/dL POC Glucose (mg/dL) 271 H 155 H 177 H (70-110) mg/dL Calcium (8.4-10.2) mg/dL 09/09/22 09/09/22 09/09/22 Range/Units 03:35 03:35 06:09 WBC 19.7 H (3.8-10.6) k/uL RBC 3.52 L (4.30-5.90) m/uL Hgb 9.4 L (13.0-17.5) gm/dL Hct 30.0 L (39.0-53.0) % Neutrophils # 17.4 H (1.3-7.7) k/uL Lymphocytes # 0.9 L (1.0-4.8) k/uL Chloride 109 H (98-107) mmol/L Glucose 139 H (74-99) mg/dL POC Glucose (mg/dL) 128 H (70-110) mg/dL Calcium 8.0 L (8.4-10.2) mg/dL Microbiology - Last 24 Hours (Table) 09/04/22 18:21 Blood Culture - Preliminary Blood Assessment and Plan (1) Intra-abdominal abscess Current Visit: Yes Status: Acute Code(s): K65.1 - PERITONEAL ABSCESS SNOMED Code(s): 87853166 Plan: 1patient with sepsis in this patient who did have a fever tachycardia elevated white count source is intra-abdominal in this patient with evidence of colonic diverticular perforation intra-abdominal abscess status post laparotomy drainage of the abscess and primary anastomosis , cultures growing E. coli Pseudomonas and Enterococcus faecium with sensitivities pending. 2patient fever pattern has improved however did have worsening of the white count was a 19,000 today patient is currently covered with the Zosyn and daptomycin to continue, we will try to obtain sensitivities from the micro-lab Time with Patient: Less than 30
[2022-09-09 23:41] LABS: Glucose,Whole Blood 150 mg/dL (70-110)
[2022-09-10] MEDS ORDERED: ACETAMINOPHEN IV (For NPO) 1,000 MG in EMPTY BAG 1 BAG IVPB PRN (00:04)
[2022-09-10] MEDS: METOCLOPRAMIDE 5 MG/ML 2 ML VIAL IVP SCH ×4 (00:19→19:42)
[2022-09-10] MEDS: 1: MVI, ADULT NO.4 WITH VIT K 10 ML, TRACE (CONC-1ML/DOSE) 1 ML, SODIUM ACETATE 10 MEQ, IV SCH ×56 (01:30→22:28)
[2022-09-10] MEDS: HYDROmorphone 0.5 MG/0.5 ML SYRINGE IVP PRN ×6 (02:39→22:30)
[2022-09-10 04:42] LABS: Basophils % (A) 0 %; Eosinophils # (A) 0.3 k/uL (0-0.7); Eosinophils % (A) 2 %; HCT 27.1 % (39.0-53.0); HGB 8.8 gm/dL (13.0-17.5); Lymphocytes # (A) 0.9 k/uL (1.0-4.8); Lymphocytes % (A) 5 %; MCH 27.6 pg (25.0-35.0); MCHC 32.4 g/dL (31.0-37.0); MCV 85.3 fL (80.0-100.0); Mean Platelet Volume 9.7; Monocytes # (A) 0.6 k/uL (0-1.0); Monocytes % (A) 3 %; Neutrophils # (A) 16.3 k/uL (1.3-7.7); Neutrophils % (A) 89 %; Platelet Count 254 k/uL (150-450); RBC 3.18 m/uL (4.30-5.90); RDW 14.9 % (11.5-15.5); WBC 18.3 k/uL (3.8-10.6)
[2022-09-10 04:54] LABS: African American GFR (CKD) >90 (>60 ml/min/1.73 sqM); Anion Gap 9 mmol/L; Blood Urea Nitrogen 14 mg/dL (9-20); Calcium 7.8 mg/dL (8.4-10.2); Carbon Dioxide 24 mmol/L (22-30); Chloride 106 mmol/L (98-107); Glucose 148 mg/dL (74-99); Magnesium 1.8 mg/dL (1.6-2.3); Non-African American GFR(CKD) >90 (>60 ml/min/1.73 sqM); Phosphorus 3.9 mg/dL (2.5-4.5); Sodium 139 mmol/L (137-145)
[2022-09-10] MEDS: INSULIN ASPART (NovoLOG) 100 UNIT/ML VIAL SQ SCH ×5 (04:59→23:43)
[2022-09-10] MEDS ORDERED: MAGNESIUM SULFATE-D5W PMX 1 GM in DEXTROSE/WATER 1 100ML.BAG IVPB ONE (05:09)
[2022-09-10] MEDS ORDERED: DEXTROSE 5% IN WATER 1,000 ML IV ONE (05:14)
[2022-09-10] MEDS: METOPROLOL TARTRATE 5 MG/5 ML VIAL IVP SCH ×4 (05:28→23:43)
[2022-09-10 06:34] LABS: Glucose,Whole Blood 153 mg/dL (70-110)
--- NOTE | 2022-09-10 08:09 | P.PN ---
Subjective Progress Note Date: 09/10/22 CHIEF COMPLAINT: Pneumoperitoneum, abdominal pain HISTORY OF PRESENT ILLNESS: The patient is a 52-year-old male status post right hemicolectomy for colon cancer 08/29/2022. He was discharged from the hospital without sequelae 08/31/2022 and returned to the hospital 09/03/2022 for pneumoperitoneum. He is status post exploratory laparotomy, lysis of adhesions, evacuation of intra-abdominal abscess, right hemicolectomy for resection of perforated transverse colon diverticulum, 09/04/2022. He is passing moderate flatus and having bowel movements. He denies generalized abdominal pain. He is easily fatigued with exertion. ROS: Has fevers, T-max 102.4F . No chills. No new chest pain. Denies blood in stools. PHYSICAL EXAM: VITAL SIGNS: Reviewed CONSTITUTIONAL: Well developed and in no acute distress. EYES: Conjuctivae without sclera icterus. Extraocular movements grossly intact. HEAD, EARS, NOSE, THROAT: Moist buccal mucosa. Head is atraumatic, normocephalic. Hears conversational speech. Nasogastric tube intact. RESPIRATORY:abored breathing CARDIOVASCULAR: Palpable 2+ radial pulses. Tachycardic. ABDOMEN: Midline incision wound VAC intact. Serous purulent drainage. Decreased abdominal distention. MUSCULOSKELETAL: No gross deformity of the lower extremities noted. No club alicia. No cyanosis. SKIN: Good skin turgor. Well perfused. NEUROLOGIC: Cranial nerves II through XII grossly intact. No focal or lateralizing signs. PSYCH: Appropriate affect. Alert and oriented to person, place and time. : Madonna dark urine with rivero CLINICAL LABS: Reviewed. WBC elevated at 19.7 down to 18.3, leukocytosis. Hemoglobin, 9.4 down to 20 anemia. Creatinine elevated on admission 2.16, acute renal failure, resolved at 0.8. MICRO: Multiple organisms including Enterococcus, pseudomonas, Enterobacter of peritoneal fluid. Blood cultures no growth to date. 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 Pneumoperitoneum due to perforated diverticulum 2. Tachycardia with fevers consistent with sepsis 3. Acute kidney injury, failure due to severe sepsis 4. Colon cancer status post resection PLAN: 1. Recommend CT of abdomen and pelvis due to persistent features of sepsis; although clinically patient is improving 2. Pending results of computed tomography scan, may start diet 3. 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 Increase metoprolol from 5 mg IV to 10 mg Objective - Vital Signs Vital signs: Vital Signs Temp 98.1 F 09/10/22 04:00 Pulse 114 H 09/10/22 07:00 Resp 20 09/10/22 07:00 BP 147/88 09/10/22 07:00 Pulse Ox 98 09/10/22 07:00 FiO2 40 09/05/22 12:00 Intake & Output 09/09/22 09/10/22 09/10/22 18:59 06:59 18:59 Intake Total 2454 2868.5 158 Output Total 900 800 450 Balance 1554 2068.5 -292 Weight 104.7 kg Intake: IV 1698 650 50 DAPTOmycin 500 mg In 100 Sodium Chloride 0.9% 50 ml @ 100 mls/hr IVPB Q24HR [facility] Rx#:[id number] Dextrose 5% in Water 1, 200 000 ml @ 100 mls/hr IV . Q10H [facility] Rx#:[id number] Dextrose 5% in Water 1, 550 550 50 000 ml @ 50 mls/hr IV . Q20H [facility] Rx#:[id number] Piperacillin-Tazobactam 3 200 100 .375 gm In Sodium Chloride 0.9% 100 ml @ 25 mls/hr IVPB Q8HR [facility] Rx# :[id number] Potassium Acetate 8 meq 648 Calcium Gluconate 1 gm Potassium Phosphate 15 mmol In Amino Acids 5 %/ Dextrose 20 % 1,000 ml @ 108 mls/hr IV .BY DURATION [facility] Rx#: [id number] Intake, IV Titration 756 2218.5 108 Amount Mvi, Adult No.4 with Vit 756 1188 108 K 10 ml Trace (Conc-1Ml/ Dose) 1 ml Sodium Acetate 10 meq Potassium Acetate 20 meq Calcium Gluconate 1 gm Potassium Phosphate 15 mmol Magnesium Sulfate gm 0.25 gm In Amino Acids 5 %/Dextrose 20 % 1,000 ml @ 108 mls/ hr IV .BY DURATION [facility] Rx #:[id number] Sodium Acetate 10 meq 1030.5 Potassium Acetate 20 meq Calcium Gluconate 1 gm Potassium Phosphate 15 mmol Magnesium Sulfate gm 0.25 gm In Amino Acids 5 %/Dextrose 20 % 1,000 ml @ 108 mls/hr IV .BY DURATION [facility] Rx#: [id number] Output: Urine 900 800 450 Other: Voiding Method Urinal Urinal # Voids 1 # Bowel Movements 1 ABP, PAP, CO, CI - Last Documented Arterial Blood Pressure 158/44 - Labs CBC & Chem 7: 09/10/22 03:44 09/10/22 03:44 Labs: Abnormal Lab Results - Last 24 Hours (Table) 09/09/22 09/09/22 09/09/22 Range/Units 11:53 17:20 23:40 WBC (3.8-10.6) k/uL RBC (4.30-5.90) m/uL Hgb (13.0-17.5) gm/dL Hct (39.0-53.0) % Neutrophils # (1.3-7.7) k/uL Lymphocytes # (1.0-4.8) k/uL Glucose (74-99) mg/dL POC Glucose (mg/dL) 130 H 149 H 150 H (70-110) mg/dL Calcium (8.4-10.2) mg/dL 09/10/22 09/10/22 09/10/22 Range/Units 03:44 03:44 06:32 WBC 18.3 H (3.8-10.6) k/uL RBC 3.18 L (4.30-5.90) m/uL Hgb 8.8 L (13.0-17.5) gm/dL Hct 27.1 L (39.0-53.0) % Neutrophils # 16.3 H (1.3-7.7) k/uL Lymphocytes # 0.9 L (1.0-4.8) k/uL Glucose 148 H (74-99) mg/dL POC Glucose (mg/dL) 153 H (70-110) mg/dL Calcium 7.8 L (8.4-10.2) mg/dL Microbiology - Last 24 Hours (Table) 09/08/22 09:24 Blood Culture - Preliminary Blood 09/04/22 19:50 Anaerobic Culture - Final Peritoneal Fluid
--- NOTE | 2022-09-10 08:43 | IR ---
PICC LINE PLACEMENT: HISTORY: Infection requiring long-term antibiotic therapy PROCEDURE: Ultrasound guidance of PICC line placement. LOCAL COORDINATOR: Dr. Kiran. COMPLICATIONS: None ANESTHESIA: 1. 1% Lidocaine locally. FINDINGS/TECHNIQUE: The procedure was explained to the patient. The risks, complications, benefits and alternatives were discussed and any questions were answered. Informed consent was obtained. The patient was placed supine on the fluoroscopic table and prepped and draped in the usual sterile fas ion. Utilizing a 21 gauge needle and sonographic guidance, access in the left basilic vein was achi eved and there is placement of a 0.018 guidewire. The vein is patent. A 5-F. sheath was placed over the guidewire. The guidewire and dilator were removed and a 5-F. Double lumen PICC line was placed through the sheath with the chest x-ray confirming the tip at the level of the SVC. The sheath was r emoved, the catheter was flushed and sutured into position. The patient was stable throughout the pr ocedure and remained stable upon discharge from the Department of Radiology. The vein puncture was patent under ultrasound. A boyle scale image was obtained to document patency of the vein punctured. All elements of the maximal barrier technique were utilized. IMPRESSION: 1. Successful PICC line placement under ultrasound performed bedside within the ICU.
[2022-09-10] MEDS: HEPARIN SODIUM,PORCINE/PF 5,000 UNIT/0.5 ML SYRINGE SQ SCH ×2 (08:46→21:08)
[2022-09-10] MEDS: DAPTOmycin 500 MG in SODIUM CHLORIDE 0.9% 50 ML IVPB SCH (08:46)
[2022-09-10] MEDS: PANTOPRAZOLE 40 MG/10 ML VIAL IV SCH (08:46)
[2022-09-10] MEDS: PIPERACILLIN-TAZOBACTAM 3.375 GM in SODIUM CHLORIDE 0.9% 100 ML IVPB SCH ×3 (08:47→23:44)
[2022-09-10] MEDS: SIMETHICONE 80 MG CHEWABLE PO SCH ×4 (08:47→21:08)
[2022-09-10] MEDS: IOPAMIDOL CONTRAST (ORAL USE) VIAL PO PRN ×2 (09:37→10:35)
--- NOTE | 2022-09-10 10:06 | P.PN ---
Subjective Progress Note Date: 09/10/22 This is a 52-year-old -[place] male with history of colon cancer, status post right hemicolectomy for cecal colon cancer on 08/29/2022. Patient was discharged uneventfully on Percocet and Motrin for pain control. Patient was readmitted on 09/03/2022, he was mostly admitted with abdominal pain, distention, nausea and vomiting which started a few days prior to his admission. Patient was seen by surgery on consultation, and he was found to have acute pneumoperitoneum. Yesterday, the patient underwent robotic-assisted laparoscopic extensive lysis of adhesions open exploratory laparotomy with right hemicolectomy and primary anastomosis drainage of abdominal abscess abdominal peritoneal lavage, Margarita spent of a SARAI drain in the pelvis and placement of the incisional wound VAC system. I was notified about this patient from Dr. Moeller yesterday, and considering his abdominal sepsis presentation considering his surgical findings considering the patient was not extubated postoperatively, we admitted the patient to the ICU, manage his ventilator overnight, and I'm evaluating the patient today on consultation. Patient had a relatively uneventful night, did not require any pressors, he did receive fluids and he seems to be hemodynamically stable, remains on mechanical ventilation. His ventilator settings at this point are assist control rate of 18 tidal volume 500 FiO2 40% and PEEP of 5 recent ABG showed a pO2 of 79 pCO2 39 pH of 7.42 patient is on vancomycin and Zosyn for his abdominal sepsis he is on propofol at 65 mcg/kg/m he has good urine output roughly 30-50 mL per hour. Patient has a nasogastric tube applied to suction and he has a wound VAC. He also has a SARAI drain noted. Patient is sedated and calm, however I would recommend a trial of sedation interruption and possibly weaning parameters, if tolerated may consider further weaning and extubation today. Labs today showed relatively normal CBC WBC count is 8.6 hemoglobin is 10.4. Elect lites are normal BUN is 23 creatinine 1.36. Reevaluated today on 09/06/2022, patient remains in the ICU, patient was extub ated yesterday and he tolerated extubation well over the last 24 hours. He is on 2 L nasal cannula, not in any distress. Continues to have significant nasogastric output. Patient is to be started on TPN today. Doing better than expected overall. Remains on antibiotics for his abdominal sepsis. White count is 11.8 today hemoglobin is 9.6. Elect lites are normal renal profile is normal with a creatinine of 1.14, improving since admission from 2.14 on admission. Patient is compliant with his incentive spirometry and doing a good job with I- S. Reevaluated today on 09/07/2022, patient remains in the ICU, he feels generally weak, denies any shortness of breath, no cough, no wheezing. Continues to have nasogastric tube in place, and he had 1 50 mL of output overnight. Patient on TPN for nutritional support. His sodium was noted to be elevated today, and I recommended switching his IV fluid to D5W at 100 mL per hour. His labs otherwise are unremarkable. Patient is doing well with incentive spirometry, pain is fairly well controlled. Renal profile is normal, WBC count is 11.8 h emoglobin is 9.6 The patient is seen today 09/08/2022 in follow-up in the intensive care unit. He is currently resting comfortably in bed. Awake and alert in no acute distress. He is maintaining good O2 saturations in the mid 90s on room air. He is febrile with a temp of 101.9. Tachycardic. Hypertensive. Blood cultures pending. Abdominal x-ray revealed persistent markedly dilated small bowel loops. Peritoneal fluid cultures were positive for E. coli, Pseudomonas aeruginosa, enterococcus faecium. He remains nothing by mouth. He is continued on TPN and lipids. Antibiotics in the form of Zosyn and now daptomycin. Remains on heparin for DVT prophylaxis. He is up ambulating with assistance. The patient is seen today 09/09/2022 in follow-up in the intensive care unit. He is currently resting comfortably in bed. Awake and alert in no acute distress. White count 19.7. Hemoglobin 9.4. Platelets 245. Sodium 141. Potassium 3.9. Bicarb 24. BUN 14. Creatinine 0.78. Glucose 139. He is maintaining good O2 saturations in the mid 90s on room air. Continues with a low-grade fever currently at 100.8. Tachycardic. He is continued on TPN 108 ML's per hour. He has D5W it 100 ML's per hour. 0.9 normal setting at KVO. He is on antibiotics in the form of Zosyn and daptomycin. He is working well with the incentive spirometer. Remains on strict nothing by mouth per surgical services. The patient is seen today 09/10/2022 in follow-up in the intensive care unit. He is currently resting fairly comfortably in bed. Awake and alert in no acute distress. Chest x-ray shows improving bilateral infiltrate and small effusion. He continues to maintain good O2 saturations in the 90s on room air. Some abdominal distention and discomfort. Follow-up computed tomography scan pending. Still have an elevated temperatures up to 102.4 last night. White count 18.3. Hemoglobin 8.8. Sodium 139. Potassium 4.0. Bicarb 24. BUN 14. Creatinine 0.83. He remains on daptomycin and Zosyn. Being nourished with TPN at 108 ML's per hour. Heparin for DVT prophylaxis. Objective - Vital Signs Vital signs: Vital Signs Temp 98.1 F 09/10/22 04:00 Pulse 114 H 09/10/22 07:00 Resp 20 09/10/22 07:00 BP 147/88 09/10/22 07:00 Pulse Ox 98 09/10/22 07:00 FiO2 40 09/05/22 12:00 Intake & Output 09/09/22 09/10/22 09/10/22 18:59 06:59 18:59 Intake Total 2454 2868.5 1274 Output Total 900 800 450 Balance 1554 2068.5 824 Weight 104.7 kg Intake: IV 1698 650 150 DAPTOmycin 500 mg In 100 Sodium Chloride 0.9% 50 ml @ 100 mls/hr IVPB Q24HR [facility] Rx#:[id number] Dextrose 5% in Water 1, 200 000 ml @ 100 mls/hr IV . Q10H [facility] Rx#:[id number] Dextrose 5% in Water 1, 550 550 150 000 ml @ 50 mls/hr IV . Q20H [facility] Rx#:[id number] Piperacillin-Tazobactam 3 200 100 .375 gm In Sodium Chloride 0.9% 100 ml @ 25 mls/hr IVPB Q8HR [facility] Rx# :[id number] Potassium Acetate 8 meq 648 Calcium Gluconate 1 gm Potassium Phosphate 15 mmol In Amino Acids 5 %/ Dextrose 20 % 1,000 ml @ 108 mls/hr IV .BY DURATION [facility] Rx#: [id number] Intake, IV Titration 756 2218.5 424 Amount DAPTOmycin 500 mg In 100 Sodium Chloride 0.9% 50 ml @ 100 mls/hr IVPB Q24HR [facility] Rx#:[id number] Mvi, Adult No.4 with Vit 756 1188 324 K 10 ml Trace (Conc-1Ml/ Dose) 1 ml Sodium Acetate 10 meq Potassium Acetate 20 meq Calcium Gluconate 1 gm Potassium Phosphate 15 mmol Magnesium Sulfate gm 0.25 gm In Amino Acids 5 %/Dextrose 20 % 1,000 ml @ 108 mls/ hr IV .BY DURATION [facility] Rx #:[id number] Sodium Acetate 10 meq 1030.5 Potassium Acetate 20 meq Calcium Gluconate 1 gm Potassium Phosphate 15 mmol Magnesium Sulfate gm 0.25 gm In Amino Acids 5 %/Dextrose 20 % 1,000 ml @ 108 mls/hr IV .BY DURATION [facility] Rx#: [id number] Tube Feeding 700 Output: Urine 900 800 450 Other: Voiding Method Urinal Urinal # Voids 1 # Bowel Movements 1 ABP, PAP, CO, CI - Last Documented Arterial Blood Pressure 158/44 - Exam GENERAL EXAM: Alert, active, 52-year-old male patient, on room air, comfortable in no apparent distress. HEAD: Normocephalic. EYES: Normal reaction of pupils, equal size. NOSE: Nasogastric tube secured in place. Clear with pink turbinates. THROAT: No erythema or exudates. NECK: No masses, no JVD. CHEST: No chest wall deformity. LUNGS: Equal air entry with no crackles, wheeze, rhonchi or dullness. CVS: S1 and S2 normal with no audible murmur, regular rhythm. ABDOMEN: Midline incision with wound VAC intact. SARAI drain in place. Serous purulent drainage. Increased abdominal distention. SPINE: No scoliosis or deformity SKIN: No rashes CENTRAL NERVOUS SYSTEM: No focal deficits, tone is normal in all 4 extremities. EXTREMITIES: There is no peripheral edema. No clubbing, no cyanosis. Peripheral pulses are intact. - Labs CBC & Chem 7: 09/10/22 03:44 09/10/22 03:44 Labs: Abnormal Lab Results - Last 24 Hours (Table) 09/09/22 09/09/22 09/09/22 Range/Units 11:53 17:20 23:40 WBC (3.8-10.6) k/uL RBC (4.30-5.90) m/uL Hgb (13.0-17.5) gm/dL Hct (39.0-53.0) % Neutrophils # (1.3-7.7) k/uL Lymphocytes # (1.0-4.8) k/uL Glucose (74-99) mg/dL POC Glucose (mg/dL) 130 H 149 H 150 H (70-110) mg/dL Calcium (8.4-10.2) mg/dL 09/10/22 09/10/22 09/10/22 Range/Units 03:44 03:44 06:32 WBC 18.3 H (3.8-10.6) k/uL RBC 3.18 L (4.30-5.90) m/uL Hgb 8.8 L (13.0-17.5) gm/dL Hct 27.1 L (39.0-53.0) % Neutrophils # 16.3 H (1.3-7.7) k/uL Lymphocytes # 0.9 L (1.0-4.8) k/uL Glucose 148 H (74-99) mg/dL POC Glucose (mg/dL) 153 H (70-110) mg/dL Calcium 7.8 L (8.4-10.2) mg/dL Microbiology - Last 24 Hours (Table) 09/08/22 09:24 Blood Culture - Preliminary Blood 09/04/22 19:50 Anaerobic Culture - Final Peritoneal Fluid Assessment and Plan Assessment: Acute pneumoperitoneum, secondary to perforated colonic diverticulum and transverse colon. Status post robotic-assisted laparoscopy with extensive lysis of adhesions, right hemicolectomy and primary anastomosis and drainage of abdominal abscess abdominal peritoneal lavage and placement of SARAI drain as well as incisional wound VAC system Severe abdominal sepsis secondary to E. coli, pseudomonas aeruginosa, enterococcus faecium Febrile illness secondary to above, blood cultures pending Sinus tachycardia secondary to sepsis History of colon cancer status post resection Acute kidney injury, improved Acute lactic acidosis secondary to sepsis Intra-abdominal abscess Abdominal ascites History of sarcoidosis Plan: The patient was seen and evaluated Labs and medications reviewed Computed tomography scan of the abdomen pending Continue Zosyn, daptomycin We will continue to follow I have personally seen and examined the patient, performed the documentation and the assessment and plan as written. Number of minutes spent on the visit: 10.
--- NOTE | 2022-09-10 10:12 | P.PN ---
Subjective Patient is seen in follow-up for acute kidney injury. Renal function at baseline. Nonoliguric. On D5W. Sodium level trending down. Receiving TPN. Scheduled for CAT scan today. Vital signs are stable. General: No acute distress. HEENT: Head exam is unremarkable. LUNGS: No audible rhonchi or wheezes. HEART: Tachycardic. ABDOMEN: Generalized tenderness present. EXTREMITITES: No edema. Objective - Vital Signs Vital signs: Vital Signs Temp 99.9 F H 09/10/22 08:00 Pulse 120 H 09/10/22 10:00 Resp 29 H 09/10/22 10:00 BP 139/89 09/10/22 10:00 Pulse Ox 97 09/10/22 10:00 FiO2 40 09/05/22 12:00 Intake & Output 09/09/22 09/10/22 09/10/22 18:59 06:59 18:59 Intake Total 2454 2868.5 1432 Output Total 900 800 450 Balance 1554 2068.5 982 Weight 104.7 kg Intake: IV 1698 650 200 DAPTOmycin 500 mg In 100 Sodium Chloride 0.9% 50 ml @ 100 mls/hr IVPB Q24HR [facility] Rx#:[id number] Dextrose 5% in Water 1, 200 000 ml @ 100 mls/hr IV . Q10H [facility] Rx#:[id number] Dextrose 5% in Water 1, 550 550 200 000 ml @ 50 mls/hr IV . Q20H [facility] Rx#:[id number] Piperacillin-Tazobactam 3 200 100 .375 gm In Sodium Chloride 0.9% 100 ml @ 25 mls/hr IVPB Q8HR [facility] Rx# :[id number] Potassium Acetate 8 meq 648 Calcium Gluconate 1 gm Potassium Phosphate 15 mmol In Amino Acids 5 %/ Dextrose 20 % 1,000 ml @ 108 mls/hr IV .BY DURATION [facility] Rx#: [id number] Intake, IV Titration 756 2218.5 532 Amount DAPTOmycin 500 mg In 100 Sodium Chloride 0.9% 50 ml @ 100 mls/hr IVPB Q24HR [facility] Rx#:[id number] Mvi, Adult No.4 with Vit 756 1188 432 K 10 ml Trace (Conc-1Ml/ Dose) 1 ml Sodium Acetate 10 meq Potassium Acetate 20 meq Calcium Gluconate 1 gm Potassium Phosphate 15 mmol Magnesium Sulfate gm 0.25 gm In Amino Acids 5 %/Dextrose 20 % 1,000 ml @ 108 mls/ hr IV .BY DURATION [facility] Rx #:[id number] Sodium Acetate 10 meq 1030.5 Potassium Acetate 20 meq Calcium Gluconate 1 gm Potassium Phosphate 15 mmol Magnesium Sulfate gm 0.25 gm In Amino Acids 5 %/Dextrose 20 % 1,000 ml @ 108 mls/hr IV .BY DURATION [facility] Rx#: [id number] Tube Feeding 700 Output: Urine 900 800 450 Other: Voiding Method Urinal Urinal Urinal # Voids 1 # Bowel Movements 1 ABP, PAP, CO, CI - Last Documented Arterial Blood Pressure 158/44 - Labs CBC & Chem 7: 09/10/22 03:44 09/10/22 03:44 Labs: Abnormal Lab Results - Last 24 Hours (Table) 09/09/22 09/09/22 09/09/22 Range/Units 11:53 17:20 23:40 WBC (3.8-10.6) k/uL RBC (4.30-5.90) m/uL Hgb (13.0-17.5) gm/dL Hct (39.0-53.0) % Neutrophils # (1.3-7.7) k/uL Lymphocytes # (1.0-4.8) k/uL Glucose (74-99) mg/dL POC Glucose (mg/dL) 130 H 149 H 150 H (70-110) mg/dL Calcium (8.4-10.2) mg/dL 09/10/22 09/10/22 09/10/22 Range/Units 03:44 03:44 06:32 WBC 18.3 H (3.8-10.6) k/uL RBC 3.18 L (4.30-5.90) m/uL Hgb 8.8 L (13.0-17.5) gm/dL Hct 27.1 L (39.0-53.0) % Neutrophils # 16.3 H (1.3-7.7) k/uL Lymphocytes # 0.9 L (1.0-4.8) k/uL Glucose 148 H (74-99) mg/dL POC Glucose (mg/dL) 153 H (70-110) mg/dL Calcium 7.8 L (8.4-10.2) mg/dL Microbiology - Last 24 Hours (Table) 09/08/22 09:24 Blood Culture - Preliminary Blood 09/04/22 19:50 Anaerobic Culture - Final Peritoneal Fluid Assessment and Plan Plan: Assessment: 1. Acute kidney injury secondary to ATN secondary to severe sepsis. Creatinine 2.1 on admission and is 0.83 today. Nonoliguric. UA fairly benign. No hydronephrosis noted on CAT scan. 2. Pneumoperitoneum status post lysis of lesions, right hemicolectomy and drainage of intra-abdominal abscess on 09/04/2022. 3. History of colon cancer. 4. Severe sepsis secondary to abdominal abscess. On antibiotics. 5. Hypernatremia from lack of free water intake. Improving with D5W. Plan: Hep-Lock IV fluids. Continue to monitor renal function and urine output. Avoid nephrotoxins. TPN per surgery. Follow-up CAT scan.
[2022-09-10] MEDS: INSULIN DETEMIR (LEVEMIR) 100 UNIT/ML SYR SQ SCH ×2 (10:35→21:08)
[2022-09-10 11:33] LABS: Glucose,Whole Blood 115 mg/dL (70-110)
--- NOTE | 2022-09-10 11:39 | CT ---
EXAMINATION TYPE: CT abdomen pelvis w con DATE OF EXAM: 09/10/2022 COMPARISON: 09/03/2022 HISTORY: Abdominal distension, sepsis. Recent colon resection and dx of colon ca CT DLP: 1527 mGycm CONTRAST: CT scan of the abdomen and pelvis is performed with Oral Contrast and with IV Contrast, patient injec ole with 100 mL of Isovue 300. FINDINGS: LUNG BASES-: Extensive basilar pleural plaques are noted. Small basilar pleural effusions. LIVER/GB: No calcified gallstones. There is a thick-walled collection with internal air seen adjac ent to the liver. While this could reflect postoperative seroma with internal foci of air I cannot ex clude perihepatic abscesses. Largest collection at the anterior dome measures 10.7 x 4.0 cm. There is an additional collection inferiorly measuring 10.5 x 3.8 cm. Multiple smaller collections seen. No s pace occupying hepatic lesion. Biliary tree is of normal caliber. PANCREAS: No inflammation. No distinct mass. SPLEEN: No splenic enlargement. No lesion seen. ADRENALS: No nodule. No thickening. KIDNEYS/BLADDER: No hydronephrosis. No nephrolithiasis. No distinct renal mass. Urinary bladder g rossly unremarkable. BOWEL: Again noted are dilated loops of small bowel which have not improved significantly since the p rior study. Left vickie abdominal loop of small bowel measures 4.8 cm in greatest dimension while other loops measure 4.1 cm. There is no small bowel wall thickening is well as inflammatory change which p ersists at the enterocolonic anastomotic site. Surgical drain is seen with its distal tip at the righ t lower quadrant. Contrast is not identified at the anastomotic site and therefore evaluation for lavelle k is limited. GENITAL ORGANS: No gross abnormality. LYMPH NODES: No greater than 1cm abdominal or pelvic lymph nodes are appreciated. AORTA: No significant abnormality. OSSEOUS STRUCTURES: No significant abnormality is seen. OTHER: There is additional nonspecific pelvic fluid collection measuring 7.8 x 5.7 cm which was seen previously. Skin fransisca noted. IMPRESSION: 1. Loculated and nonloculated perihepatic collections some of which demonstrate mildly thickened wall s with internal foci of air. Perihepatic abscesses are not excluded. 2. Persistent dilatation of small bowel with small bowel wall thickening and inflammatory change at t he enterocolonic anastomotic site. Persistent postoperative ileus and/or obstructive changes not excl uded. Adjacent drain is in place. Contrast does not opacify the anastomotic site and therefore leak i s difficult to evaluate or exclude. 3. Small amount of free air persists improved from prior study.
--- NOTE | 2022-09-10 15:08 | P.PN ---
Subjective Progress Note Date: 09/10/22 This is a 52 year old male monitored in the intensive care unit postoperative day #4 lysis of adhesions and right hemicolectomy due to bowel perforation. Patient had end to end anastamosis. Has not had bowel movement, had KUB xray today showing multiple dilated small bowel loops possible ileus vs. obstruction. General surgery recommending patient to be NPO at this time. Heart rate remains elevated in the 120s and patient switched to IV lopressor. Remains on IV daptomycin and IV zosyn for positive peritoneal fluid culture with E. Coli, enterococcus and pseudomonas. Blood culture negative so far. Patient remains on D5 water at 100 mls/hr, sodium is slightly improved today down to 146. Continues on TPN, NG tube has been discontinued. Accuchecks switched to Q6h and small dose of levemir HS has been added. SARAI drain in place with serous drainage. Patient febrile today up to 101.9, encouraged to continue with incentive spirometer. Patient has wound vac in place to continuous suction, plan to ambulate around the room and up in the chair today. 09/09/2022 Patient is evaluated today in the ICU resting in bed. Alert x 3. Asking about discharge. Repeat blood culture is pending patient remains on IV antibiotics. White count up to 19.7 today. Patient reports BM yesterday and passing some gas today. Abdomen is more distended. Surgery recommending NG tube today. Patient remains NPO. Midline incisional wound vac in place. Patient remains with fever, using incentive spirometer reaching 1200. Continues on TPN. 09/10/2022 Patient remains in the intensive care unit. Patient continues to be NPO. 3 attempts were made to pass NG tube and were unsuccessful. Patient did have 2 BMs yesterday, abdomen remains significantly distended. Repeat abdominal pelvis CT reveals loculated and nonloculated perihepatic collections some of which demonstrate mildly thickened almeida with internal foci of air. Perihepatic abscesses are not excluded. Persistent dilation of small bowel with small bowel wall thickening and inflammatory change at the enterocolonic anastomotic site. Persistent postoperative ileus and/or obstructive changes not excluded. Adjacent drain is in place. Contrast does not opacify the anastomotic site and therefore leak is difficult to evaluate or exclude. Small amt of free air persists improved from prior study. White count 18.3 today, electrolytes are normalized and blood glucose improved to 115. Patient remains on TPN. Blood culture remains negative. Remains on IV zosyn and IV daptomycin. Temp of 100.4 and remains tachycardic 121, blood pressure stable at 131/94. Review of Systems Constitutional: Denied any fatigue denied any fever. Cardio vascular: denied any chest pain, palpitations Gastrointestinal: denied any nausea, vomiting, reports incisional abdominal pain, reports bloating. Pulmonary: Denied any shortness of breath cough Neurologic denied any new focal deficits, All inpatient medications were reviewed and appropriate changes in these medications as dictated in the interval history and assessment and plan. PHYSICAL EXAMINATION: GENERAL: The patient is alert and oriented x3, not in any acute distress. Well developed, well nourished. HEENT: Pupils are round and equally reacting to light. EOMI. No scleral icterus. No conjunctival pallor. Normocephalic, atraumatic. No pharyngeal erythema. No thyromegaly. CARDIOVASCULAR: S1 and S2 present. No murmurs, rubs, or gallops. PULMONARY: Chest is clear to auscultation, no wheezing or crackles. ABDOMEN: Soft, tender, distended, hypoactive bowel sounds. No palpable organomegaly. Post surgical, midline woundvac in place. More distended than yesterday. MUSCULOSKELETAL: No joint swelling or deformity. EXTREMITIES: No cyanosis, clubbing, or pedal edema. NEUROLOGICAL: Gross neurological examination did not reveal any focal deficits. Mild generalized weakness. SKIN: No rashes. Assessment Sepsis secondary to perforated diverticulum postoperative day #6 evacuation of abscess, lysis of adhesions, right hemicolectomy Postoperative ileus f/u abdominal CT unable to exclude perihepatic abscess/anastomotic leak. Fever and persistent sinus tachycardia Colon cancer s/p resection on 08/29/2022 Acute kidney injury secondary to ATN and sepsis resolved Leukocytosis Hypernatremia resolved Hx hyperlipidemia Sarcoidosis with asthma Nicotine use GI prophylaxis DVT prophylaxis Full Code Plan Continue IV antibiotics, infectious disease following closely Patient continues to be febrile and blood cultures have been repeated and pending Continue with TPN, patient is currently NPO, unsuccessful attempt at NG tube placement Continue CBG Q6h hour and novolog s/s q6h. Continue IV metoprolol for the tachycardia Continues on D5 water and f/u labs tomorrow Encourage ambulation, increase activity level and incentive spirometer The impression and plan of care has been dictated by Misty Fairchild, Nurse Practitioner as directed. Dr. Kai MD I have performed a history and physical examination and medical decision making of this patient, discussed the same with the dictator, and agree with the dictators assessment and plan as written, documented as a scribe. Based on total visit time, I have performed more than 50% of this visit. Objective - Vital Signs Vital signs: Vital Signs Temp 100.4 F H 09/10/22 12:00 Pulse 121 H 09/10/22 14:00 Resp 26 H 09/10/22 14:00 BP 131/94 09/10/22 14:00 Pulse Ox 95 09/10/22 14:00 FiO2 40 09/05/22 12:00 Intake & Output 09/09/22 09/10/22 09/10/22 18:59 06:59 18:59 Intake Total 2454 2868.5 2664 Output Total 917 247 3086 Balance 1554 2068.5 1364 Weight 104.7 kg Intake: IV 1698 650 200 DAPTOmycin 500 mg In 100 Sodium Chloride 0.9% 50 ml @ 100 mls/hr IVPB Q24HR [facility] Rx#:[id number] Dextrose 5% in Water 1, 200 000 ml @ 100 mls/hr IV . Q10H [facility] Rx#:[id number] Dextrose 5% in Water 1, 550 550 200 000 ml @ 50 mls/hr IV . Q20H [facility] Rx#:[id number] Piperacillin-Tazobactam 3 200 100 .375 gm In Sodium Chloride 0.9% 100 ml @ 25 mls/hr IVPB Q8HR [facility] Rx# :[id number] Potassium Acetate 8 meq 648 Calcium Gluconate 1 gm Potassium Phosphate 15 mmol In Amino Acids 5 %/ Dextrose 20 % 1,000 ml @ 108 mls/hr IV .BY DURATION [facility] Rx#: [id number] Intake, IV Titration 756 2218.5 1064 Amount DAPTOmycin 500 mg In 100 Sodium Chloride 0.9% 50 ml @ 100 mls/hr IVPB Q24HR [facility] Rx#:[id number] Mvi, Adult No.4 with Vit 756 1188 864 K 10 ml Trace (Conc-1Ml/ Dose) 1 ml Sodium Acetate 10 meq Potassium Acetate 20 meq Calcium Gluconate 1 gm Potassium Phosphate 15 mmol Magnesium Sulfate gm 0.25 gm In Amino Acids 5 %/Dextrose 20 % 1,000 ml @ 108 mls/ hr IV .BY DURATION [facility] Rx #:[id number] Piperacillin-Tazobactam 3 100 .375 gm In Sodium Chloride 0.9% 100 ml @ 25 mls/hr IVPB Q8HR [facility] Rx# :[id number] Sodium Acetate 10 meq 1030.5 Potassium Acetate 20 meq Calcium Gluconate 1 gm Potassium Phosphate 15 mmol Magnesium Sulfate gm 0.25 gm In Amino Acids 5 %/Dextrose 20 % 1,000 ml @ 108 mls/hr IV .BY DURATION [facility] Rx#: [id number] Oral 1400 Output: Urine 276 737 4756 Other: Voiding Method Urinal Urinal Urinal # Voids 1 # Bowel Movements 1 ABP, PAP, CO, CI - Last Documented Arterial Blood Pressure 158/44 - Labs CBC & Chem 7: 09/10/22 03:44 09/10/22 03:44 Labs: Abnormal Lab Results - Last 24 Hours (Table) 09/09/22 09/09/22 09/10/22 Range/Units 17:20 23:40 03:44 WBC (3.8-10.6) k/uL RBC (4.30-5.90) m/uL Hgb (13.0-17.5) gm/dL Hct (39.0-53.0) % Neutrophils # (1.3-7.7) k/uL Lymphocytes # (1.0-4.8) k/uL Glucose 148 H (74-99) mg/dL POC Glucose (mg/dL) 149 H 150 H (70-110) mg/dL Calcium 7.8 L (8.4-10.2) mg/dL 09/10/22 09/10/22 09/10/22 Range/Units 03:44 06:32 11:31 WBC 18.3 H (3.8-10.6) k/uL RBC 3.18 L (4.30-5.90) m/uL Hgb 8.8 L (13.0-17.5) gm/dL Hct 27.1 L (39.0-53.0) % Neutrophils # 16.3 H (1.3-7.7) k/uL Lymphocytes # 0.9 L (1.0-4.8) k/uL Glucose (74-99) mg/dL POC Glucose (mg/dL) 153 H 115 H (70-110) mg/dL Calcium (8.4-10.2) mg/dL Microbiology - Last 24 Hours (Table) 09/04/22 18:21 Blood Culture - Final Blood 09/08/22 09:24 Blood Culture - Preliminary Blood 09/04/22 19:50 Anaerobic Culture - Final Peritoneal Fluid Assessment and Plan Time with Patient: Less than 30
--- NOTE | 2022-09-10 15:35 | P.PN ---
Subjective Progress Note Date: 09/10/22 Principal diagnosis: Intra-abdominal abscess Patient is a 52-year-old male presenting to the hospital with abdominal pain has been diagnosed with an intra-abdominal abscess from perforated diverticulum status post laparotomy and drainage of the abscess. n today's evaluation that is 09/10/2022, the patient has been running a fever, the patient is breathing comfortably on room air , the patient denies any chest pain or shortness of breath or cough, the patient abdominal pain is currently controlled , no vomiting has been reported Objective - Vital Signs Vital signs: Vital Signs Temp 99.9 F H 09/10/22 08:00 Pulse 120 H 09/10/22 10:00 Resp 29 H 09/10/22 10:00 BP 139/89 09/10/22 10:00 Pulse Ox 97 09/10/22 10:00 FiO2 40 09/05/22 12:00 Intake & Output 09/09/22 09/10/22 09/10/22 18:59 06:59 18:59 Intake Total 2454 2868.5 1432 Output Total 069 502 8522 Balance 1554 2068.5 432 Weight 104.7 kg Intake: IV 1698 650 200 DAPTOmycin 500 mg In 100 Sodium Chloride 0.9% 50 ml @ 100 mls/hr IVPB Q24HR [facility] Rx#:[id number] Dextrose 5% in Water 1, 200 000 ml @ 100 mls/hr IV . Q10H [facility] Rx#:[id number] Dextrose 5% in Water 1, 550 550 200 000 ml @ 50 mls/hr IV . Q20H [facility] Rx#:[id number] Piperacillin-Tazobactam 3 200 100 .375 gm In Sodium Chloride 0.9% 100 ml @ 25 mls/hr IVPB Q8HR [facility] Rx# :[id number] Potassium Acetate 8 meq 648 Calcium Gluconate 1 gm Potassium Phosphate 15 mmol In Amino Acids 5 %/ Dextrose 20 % 1,000 ml @ 108 mls/hr IV .BY DURATION [facility] Rx#: [id number] Intake, IV Titration 756 2218.5 532 Amount DAPTOmycin 500 mg In 100 Sodium Chloride 0.9% 50 ml @ 100 mls/hr IVPB Q24HR [facility] Rx#:[id number] Mvi, Adult No.4 with Vit 756 1188 432 K 10 ml Trace (Conc-1Ml/ Dose) 1 ml Sodium Acetate 10 meq Potassium Acetate 20 meq Calcium Gluconate 1 gm Potassium Phosphate 15 mmol Magnesium Sulfate gm 0.25 gm In Amino Acids 5 %/Dextrose 20 % 1,000 ml @ 108 mls/ hr IV .BY DURATION [facility] Rx #:[id number] Sodium Acetate 10 meq 1030.5 Potassium Acetate 20 meq Calcium Gluconate 1 gm Potassium Phosphate 15 mmol Magnesium Sulfate gm 0.25 gm In Amino Acids 5 %/Dextrose 20 % 1,000 ml @ 108 mls/hr IV .BY DURATION [facility] Rx#: [id number] Tube Feeding 700 Output: Urine 071 988 5418 Other: Voiding Method Urinal Urinal Urinal # Voids 1 # Bowel Movements 1 ABP, PAP, CO, CI - Last Documented Arterial Blood Pressure 158/44 - Exam GENERAL DESCRIPTION: A middle-age male lying in bed in no distress RESPIRATORY SYSTEM: Unlabored breathing , decreased breath sounds at bases HEART: S1 S2 regular rate and rhythm , ABDOMEN: Soft , mild distention and tenderness EXTREMITIES: No edema feet - Labs CBC & Chem 7: 09/10/22 03:44 09/10/22 03:44 Labs: Abnormal Lab Results - Last 24 Hours (Table) 09/09/22 09/09/22 09/10/22 Range/Units 17:20 23:40 03:44 WBC (3.8-10.6) k/uL RBC (4.30-5.90) m/uL Hgb (13.0-17.5) gm/dL Hct (39.0-53.0) % Neutrophils # (1.3-7.7) k/uL Lymphocytes # (1.0-4.8) k/uL Glucose 148 H (74-99) mg/dL POC Glucose (mg/dL) 149 H 150 H (70-110) mg/dL Calcium 7.8 L (8.4-10.2) mg/dL 09/10/22 09/10/22 09/10/22 Range/Units 03:44 06:32 11:31 WBC 18.3 H (3.8-10.6) k/uL RBC 3.18 L (4.30-5.90) m/uL Hgb 8.8 L (13.0-17.5) gm/dL Hct 27.1 L (39.0-53.0) % Neutrophils # 16.3 H (1.3-7.7) k/uL Lymphocytes # 0.9 L (1.0-4.8) k/uL Glucose (74-99) mg/dL POC Glucose (mg/dL) 153 H 115 H (70-110) mg/dL Calcium (8.4-10.2) mg/dL Microbiology - Last 24 Hours (Table) 09/08/22 09:24 Blood Culture - Preliminary Blood 09/04/22 19:50 Anaerobic Culture - Final Peritoneal Fluid Assessment and Plan (1) Intra-abdominal abscess Current Visit: Yes Status: Acute Code(s): K65.1 - PERITONEAL ABSCESS SNOMED Code(s): 51785001 Plan: 1patient with sepsis in this patient who did have a fever tachycardia elevated white count source is intra-abdominal in this patient with evidence of colonic diverticular perforation intra-abdominal abscess status post laparotomy drainage of the abscess and primary anastomosis , cultures growing E. coli Pseudomonas and Enterococcus faecium with sensitivities pending. 2patient with fever and elevated white count concerning for possible abscess CT of abdominal pelvis done this morning report is currently pending we will continue the patient on Zosyn and daptomycin while waiting for the CT report to be available Time with Patient: Less than 30
[2022-09-10 17:42] LABS: Glucose,Whole Blood 150 mg/dL (70-110)
[2022-09-10] MEDS: HYDROmorphone 1 MG/ML 1 ML SYRINGE IVP PRN (19:42)
[2022-09-10 23:41] LABS: Glucose,Whole Blood 151 mg/dL (70-110)
[2022-09-11] MEDS: METOCLOPRAMIDE 5 MG/ML 2 ML VIAL IVP SCH ×4 (01:35→17:59)
[2022-09-11] MEDS: HYDROmorphone 1 MG/ML 1 ML SYRINGE IVP PRN ×4 (03:30→19:30)
[2022-09-11 04:14] LABS: Basophils % (A) 0 %; Eosinophils # (A) 0.2 k/uL (0-0.7); Eosinophils % (A) 1 %; HGB 9.1 gm/dL (13.0-17.5); Lymphocytes # (A) 0.9 k/uL (1.0-4.8); Lymphocytes % (A) 5 %; MCH 28.7 pg (25.0-35.0); MCHC 33.8 g/dL (31.0-37.0); MCV 84.9 fL (80.0-100.0); Mean Platelet Volume 9.5; Monocytes # (A) 0.7 k/uL (0-1.0); Monocytes % (A) 4 %; Neutrophils # (A) 13.9 k/uL (1.3-7.7); Neutrophils % (A) 87 %; Platelet Count 270 k/uL (150-450); RBC 3.18 m/uL (4.30-5.90); RDW 14.7 % (11.5-15.5)
[2022-09-11 04:25] LABS: African American GFR (CKD) >90 (>60 ml/min/1.73 sqM); Anion Gap 8 mmol/L; Blood Urea Nitrogen 15 mg/dL (9-20); Calcium 8.1 mg/dL (8.4-10.2); Carbon Dioxide 24 mmol/L (22-30); Chloride 104 mmol/L (98-107); Glucose 124 mg/dL (74-99); Magnesium 1.9 mg/dL (1.6-2.3); Non-African American GFR(CKD) >90 (>60 ml/min/1.73 sqM); Phosphorus 3.5 mg/dL (2.5-4.5); Potassium 4.3 mmol/L (3.5-5.1); Sodium 136 mmol/L (137-145)
[2022-09-11] MEDS ORDERED: MAGNESIUM SULFATE-D5W PMX 1 GM in DEXTROSE/WATER 1 100ML.BAG IVPB ONE (04:36)
[2022-09-11] MEDS: HYDROmorphone 0.5 MG/0.5 ML SYRINGE IVP PRN ×3 (05:13→13:27)
[2022-09-11] MEDS: METOPROLOL TARTRATE 5 MG/5 ML VIAL IVP SCH ×3 (06:05→17:59)
[2022-09-11 06:53] LABS: Glucose,Whole Blood 140 mg/dL (70-110)
[2022-09-11] MEDS: INSULIN ASPART (NovoLOG) 100 UNIT/ML VIAL SQ SCH ×3 (06:57→17:37)
--- NOTE | 2022-09-11 07:17 | XR ---
EXAMINATION TYPE: XR chest 1V portable DATE OF EXAM: 09/11/2022 COMPARISON: 09/09/2022 HISTORY: PICC line placement TECHNIQUE: Single frontal view of the chest is obtained. FINDINGS: Left-sided PICC line appears in good position with tip overlying the SVC. Heart is enlarge d and there is persistent bilateral infiltrate and small effusion. No overt failure. No pneumothorax. Osseous structures are stable. IMPRESSION: Stable bilateral lower lobe infiltrate and small effusion.
[2022-09-11] MEDS: HEPARIN SODIUM,PORCINE/PF 5,000 UNIT/0.5 ML SYRINGE SQ SCH ×2 (08:55→21:52)
[2022-09-11] MEDS: PANTOPRAZOLE 40 MG/10 ML VIAL IV SCH (08:55)
[2022-09-11] MEDS: INSULIN DETEMIR (LEVEMIR) 100 UNIT/ML SYR SQ SCH ×2 (08:56→21:52)
[2022-09-11] MEDS: DAPTOmycin 500 MG in SODIUM CHLORIDE 0.9% 50 ML IVPB SCH (08:56)
[2022-09-11] MEDS: SIMETHICONE 80 MG CHEWABLE PO SCH ×4 (08:56→21:52)
[2022-09-11] MEDS: PIPERACILLIN-TAZOBACTAM 3.375 GM in SODIUM CHLORIDE 0.9% 100 ML IVPB SCH ×2 (08:57→15:33)
[2022-09-11] MEDS: 1: MVI, ADULT NO.4 WITH VIT K 10 ML, TRACE (CONC-1ML/DOSE) 1 ML, SODIUM ACETATE 10 MEQ, IV SCH ×8 (08:58)
--- NOTE | 2022-09-11 09:19 | P.PN ---
Subjective Progress Note Date: 09/11/22 CHIEF COMPLAINT: Pneumoperitoneum, abdominal pain HISTORY OF PRESENT ILLNESS: The patient is a 52-year-old male status post right hemicolectomy for colon cancer 08/29/2022. He was discharged from the hospital without sequelae 08/31/2022 and returned to the hospital 09/03/2022 for pneumoperitoneum. He is status post exploratory laparotomy, lysis of adhesions, evacuation of intra-abdominal abscess, right hemicolectomy for resection of perforated transverse colon diverticulum, 09/04/2022. He continues to have fevers however fever curve declining. WBC improving. He is passing flatus. Denies any bowel movements. C. diff is negative. ROS: Has fevers, T-max 100.7F . No chills. No new chest pain. Denies blood in stools. PHYSICAL EXAM: VITAL SIGNS: Reviewed CONSTITUTIONAL: Well developed and in no acute distress. EYES: Conjuctivae without sclera icterus. Extraocular movements grossly intact. HEAD, EARS, NOSE, THROAT: Moist buccal mucosa. Head is atraumatic, normocephalic. Hears conversational speech. RESPIRATORY:abored breathing CARDIOVASCULAR: Palpable 2+ radial pulses. Tachycardic. ABDOMEN: Midline incision wound VAC intact. Serous purulent drainage, minimal output. MUSCULOSKELETAL: No gross deformity of the lower extremities noted. No clubbing. No cyanosis. SKIN: Good skin turgor. Well perfused. NEUROLOGIC: Cranial nerves II through XII grossly intact. No focal or lateralizing signs. PSYCH: Appropriate affect. Alert and oriented to person, place and time. : Madonna dark urine with rivero CLINICAL LABS: Reviewed. WBC declining from 19.7 down to 16.0 leukocytosis. MICRO: Multiple organisms including Enterococcus, pseudomonas, Enterobacter of peritoneal fluid. Blood cultures no growth to date. PATHOLOGY: : Invasive mucinous adenocarcinoma; TUMOR SITE: Cecum HISTOLOGIC TYPE: Mucinous adenocarcinoma HISTOLOGIC GRADE: G2, moderately differentiated TUMOR SIZE: 10 cm in circumference and 5 cm in length MARGIN STATUS FOR INVASIVE CARCINOMA: All margins negative for invasive carcinoma STUDIES: CT of the abdomen and pelvis in the palate reviewed demonstrates large multiple loculations at the liver, perihepatic consistent with abscess. No leak identified from anastomosis. This is my independent interpretation. Fluid collection at the subcutaneous tissue of the lower abdomen. ASSESSMENT: 1. Pneumoperitoneum due to perforated diverticulum 2. Tachycardia with fevers consistent with sepsis 3. Acute kidney injury, failure due to severe sepsis 4. Colon cancer status post resection 5. Liver abscess, para hepatic PLAN: 1. Recommend consultation to interventional radiology for drainage of perihepatic abscess 2. Bedside drainage of subcutaneous abscess of lower midline incision 3. Will start diet after completion of procedures 4. Care plan reviewed in detail the patient and nurse for bedside drainage and radiology drainage Objective - Vital Signs Vital signs: Vital Signs Temp 98.4 F 09/11/22 04:00 Pulse 112 H 09/11/22 08:00 Resp 19 09/11/22 08:00 BP 112/76 09/11/22 08:00 Pulse Ox 96 09/11/22 08:00 FiO2 40 09/05/22 12:00 Intake & Output 09/10/22 09/11/22 09/11/22 18:59 06:59 18:59 Intake Total 3912.3 1496 216 Output Total 1300 1650 Balance 2612.3 -154 216 Weight 103.4 kg Intake: IV 200 1496 216 Dextrose 5% in Water 1, 200 000 ml @ 50 mls/hr IV . Q20H [facility] Rx#:[id number] Magnesium Sulfate-D5w Pmx 100 1 gm In Dextrose/Water 1 100ml.bag @ 100 mls/hr IVPB ONCE [facility] Rx#: [id number] Mvi, Adult No.4 with Vit 1296 216 K 10 ml Trace (Conc-1Ml/ Dose) 1 ml Sodium Acetate 10 meq Potassium Acetate 20 meq Calcium Gluconate 1 gm Potassium Phosphate 15 mmol Magnesium Sulfate gm 0.25 gm In Amino Acids 5 %/Dextrose 20 % 1,000 ml @ 108 mls/ hr IV .BY DURATION [facility] Rx #:[id number] Piperacillin-Tazobactam 3 100 .375 gm In Sodium Chloride 0.9% 100 ml @ 25 mls/hr IVPB Q8HR [facility] Rx# :[id number] Intake, IV Titration 2312.3 Amount DAPTOmycin 500 mg In 100 Sodium Chloride 0.9% 50 ml @ 100 mls/hr IVPB Q24HR [facility] Rx#:[id number] Dextrose 5% in Water 1, 0 000 ml @ 50 mls/hr IV . Q20H [facility] Rx#:[id number] Mvi, Adult No.4 with Vit 1081.8 K 10 ml Trace (Conc-1Ml/ Dose) 1 ml Sodium Acetate 10 meq Potassium Acetate 20 meq Calcium Gluconate 1 gm Potassium Phosphate 15 mmol Magnesium Sulfate gm 0.25 gm In Amino Acids 5 %/Dextrose 20 % 1,000 ml @ 108 mls/ hr IV .BY DURATION [facility] Rx #:[id number] Piperacillin-Tazobactam 3 100 .375 gm In Sodium Chloride 0.9% 100 ml @ 25 mls/hr IVPB Q8HR [facility] Rx# :[id number] Sodium Acetate 10 meq 1030.5 Potassium Acetate 20 meq Calcium Gluconate 1 gm Potassium Phosphate 15 mmol Magnesium Sulfate gm 0.25 gm In Amino Acids 5 %/Dextrose 20 % 1,000 ml @ 108 mls/hr IV .BY DURATION [facility] Rx#: [id number] Oral 1400 Output: Urine 1300 1650 Other: Voiding Method Urinal Urinal Urinal # Voids 1 0 0 # Bowel Movements 1 ABP, PAP, CO, CI - Last Documented Arterial Blood Pressure 158/44 - Labs CBC & Chem 7: 09/11/22 03:37 09/11/22 03:37 Labs: Abnormal Lab Results - Last 24 Hours (Table) 09/10/22 09/10/22 09/10/22 Range/Units 11:31 17:41 23:39 WBC (3.8-10.6) k/uL RBC (4.30-5.90) m/uL Hgb (13.0-17.5) gm/dL Hct (39.0-53.0) % Neutrophils # (1.3-7.7) k/uL Lymphocytes # (1.0-4.8) k/uL Sodium (137-145) mmol/L Glucose (74-99) mg/dL POC Glucose (mg/dL) 115 H 150 H 151 H (70-110) mg/dL Calcium (8.4-10.2) mg/dL 09/11/22 09/11/22 09/11/22 Range/Units 03:37 03:37 06:51 WBC 16.0 H (3.8-10.6) k/uL RBC 3.18 L (4.30-5.90) m/uL Hgb 9.1 L (13.0-17.5) gm/dL Hct 27.0 L (39.0-53.0) % Neutrophils # 13.9 H (1.3-7.7) k/uL Lymphocytes # 0.9 L (1.0-4.8) k/uL Sodium 136 L (137-145) mmol/L Glucose 124 H (74-99) mg/dL POC Glucose (mg/dL) 140 H (70-110) mg/dL Calcium 8.1 L (8.4-10.2) mg/dL Microbiology - Last 24 Hours (Table) 09/08/22 09:24 Blood Culture - Preliminary Blood 09/04/22 18:21 Blood Culture - Final Blood
--- NOTE | 2022-09-11 09:23 | P.PN ---
Progress Note - Text Progress Note Date: 09/11/22 Case discussed with interventional radiologist, Dr. Kiran regarding interventional radiology drainage of perihepatic abscess.
--- NOTE | 2022-09-11 10:04 | P.PN ---
Subjective Progress Note Date: 09/11/22 This is a 52-year-old -[place] male with history of colon cancer, status post right hemicolectomy for cecal colon cancer on 08/29/2022. Patient was discharged uneventfully on Percocet and Motrin for pain control. Patient was readmitted on 09/03/2022, he was mostly admitted with abdominal pain, distention, nausea and vomiting which started a few days prior to his admission. Patient was seen by surgery on consultation, and he was found to have acute pneumoperitoneum. Yesterday, the patient underwent robotic-assisted laparoscopic extensive lysis of adhesions open exploratory laparotomy with right hemicolectomy and primary anastomosis drainage of abdominal abscess abdominal peritoneal lavage, Margarita spent of a SARAI drain in the pelvis and placement of the incisional wound VAC system. I was notified about this patient from Dr. Moeller yesterday, and considering his abdominal sepsis presentation considering his surgical findings considering the patient was not extubated postoperatively, we admitted the patient to the ICU, manage his ventilator overnight, and I'm evaluating the patient today on consultation. Patient had a relatively uneventful night, did not require any pressors, he did receive fluids and he seems to be hemodynamically stable, remains on mechanical ventilation. His ventilator settings at this point are assist control rate of 18 tidal volume 500 FiO2 40% and PEEP of 5 recent ABG showed a pO2 of 79 pCO2 39 pH of 7.42 patient is on vancomycin and Zosyn for his abdominal sepsis he is on propofol at 65 mcg/kg/m he has good urine output roughly 30-50 mL per hour. Patient has a nasogastric tube applied to suction and he has a wound VAC. He also has a SARAI drain noted. Patient is sedated and calm, however I would recommend a trial of sedation interruption and possibly weaning parameters, if tolerated may consider further weaning and extubation today. Labs today showed relatively normal CBC WBC count is 8.6 hemoglobin is 10.4. Elect lites are normal BUN is 23 creatinine 1.36. Reevaluated today on 09/06/2022, patient remains in the ICU, patient was extub ated yesterday and he tolerated extubation well over the last 24 hours. He is on 2 L nasal cannula, not in any distress. Continues to have significant nasogastric output. Patient is to be started on TPN today. Doing better than expected overall. Remains on antibiotics for his abdominal sepsis. White count is 11.8 today hemoglobin is 9.6. Elect lites are normal renal profile is normal with a creatinine of 1.14, improving since admission from 2.14 on admission. Patient is compliant with his incentive spirometry and doing a good job with I- S. Reevaluated today on 09/07/2022, patient remains in the ICU, he feels generally weak, denies any shortness of breath, no cough, no wheezing. Continues to have nasogastric tube in place, and he had 1 50 mL of output overnight. Patient on TPN for nutritional support. His sodium was noted to be elevated today, and I recommended switching his IV fluid to D5W at 100 mL per hour. His labs otherwise are unremarkable. Patient is doing well with incentive spirometry, pain is fairly well controlled. Renal profile is normal, WBC count is 11.8 h emoglobin is 9.6 The patient is seen today 09/08/2022 in follow-up in the intensive care unit. He is currently resting comfortably in bed. Awake and alert in no acute distress. He is maintaining good O2 saturations in the mid 90s on room air. He is febrile with a temp of 101.9. Tachycardic. Hypertensive. Blood cultures pending. Abdominal x-ray revealed persistent markedly dilated small bowel loops. Peritoneal fluid cultures were positive for E. coli, Pseudomonas aeruginosa, enterococcus faecium. He remains nothing by mouth. He is continued on TPN and lipids. Antibiotics in the form of Zosyn and now daptomycin. Remains on heparin for DVT prophylaxis. He is up ambulating with assistance. The patient is seen today 09/09/2022 in follow-up in the intensive care unit. He is currently resting comfortably in bed. Awake and alert in no acute distress. White count 19.7. Hemoglobin 9.4. Platelets 245. Sodium 141. Potassium 3.9. Bicarb 24. BUN 14. Creatinine 0.78. Glucose 139. He is maintaining good O2 saturations in the mid 90s on room air. Continues with a low-grade fever currently at 100.8. Tachycardic. He is continued on TPN 108 ML's per hour. He has D5W it 100 ML's per hour. 0.9 normal setting at KVO. He is on antibiotics in the form of Zosyn and daptomycin. He is working well with the incentive spirometer. Remains on strict nothing by mouth per surgical services. The patient is seen today 09/10/2022 in follow-up in the intensive care unit. He is currently resting fairly comfortably in bed. Awake and alert in no acute distress. Chest x-ray shows improving bilateral infiltrate and small effusion. He continues to maintain good O2 saturations in the 90s on room air. Some abdominal distention and discomfort. Follow-up computed tomography scan pending. Still have an elevated temperatures up to 102.4 last night. White count 18.3. Hemoglobin 8.8. Sodium 139. Potassium 4.0. Bicarb 24. BUN 14. Creatinine 0.83. He remains on daptomycin and Zosyn. Being nourished with TPN at 108 ML's per hour. Heparin for DVT prophylaxis. The patient is seen today 09/11/2022 in follow-up in the intensive care unit. He is currently resting in bed. Awake and alert in no acute distress. Maintaining good O2 saturations in the 90s on room air. His initial peritoneal fluid cultures were positive for E. coli, pseudomonas aeruginosa, enterococcus faecium. Follow-up blood cultures are pending. He did have issues with abdominal distention. Follow-up computed tomography scan revealed loculated and non-loculated. Hepatic collections some of which demonstrate mildly thickened almeida with internal foci of air.. Hepatic abscesses are not excluded. Persistent dilatation of the small bowel small bowel wall thickening and inflammatory change in the interval colonic anastomotic site. Persistent postoperative ileus and/or obstructive change is not excluded. Adjacent drains in place. Leak is difficult to exclude. Small amount of free air persistent but improved. Chest x-ray reveals stable bilateral lower lobe infiltrate and small effusion. Left-sided PICC line remains in place. White count 16.0. Hemoglobin 9.1. Platelets 270. Sodium 136. Potassium 4.3. Bicarb 24. BUN 15. Creatinine 0.90. Glucose 124. He is continued on daptomycin and Zosyn. Continues to work with the incentive spirometer. Heparin for DVT prophylaxis. Being nourished with TPN at 108 ML's per hour. Objective - Vital Signs Vital signs: Vital Signs Temp 98.4 F 09/11/22 04:00 Pulse 112 H 09/11/22 08:00 Resp 19 09/11/22 08:00 BP 112/76 09/11/22 08:00 Pulse Ox 96 09/11/22 08:00 FiO2 40 09/05/22 12:00 Intake & Output 09/10/22 09/11/22 09/11/22 18:59 06:59 18:59 Intake Total 3912.3 1496 216 Output Total 1300 1650 Balance 2612.3 -154 216 Weight 103.4 kg 103.4 kg Intake: IV 200 1496 216 Dextrose 5% in Water 1, 200 000 ml @ 50 mls/hr IV . Q20H [facility] Rx#:[id number] Magnesium Sulfate-D5w Pmx 100 1 gm In Dextrose/Water 1 100ml.bag @ 100 mls/hr IVPB ONCE [facility] Rx#: [id number] Mvi, Adult No.4 with Vit 1296 216 K 10 ml Trace (Conc-1Ml/ Dose) 1 ml Sodium Acetate 10 meq Potassium Acetate 20 meq Calcium Gluconate 1 gm Potassium Phosphate 15 mmol Magnesium Sulfate gm 0.25 gm In Amino Acids 5 %/Dextrose 20 % 1,000 ml @ 108 mls/ hr IV .BY DURATION [facility] Rx #:[id number] Piperacillin-Tazobactam 3 100 .375 gm In Sodium Chloride 0.9% 100 ml @ 25 mls/hr IVPB Q8HR [facility] Rx# :[id number] Intake, IV Titration 2312.3 Amount DAPTOmycin 500 mg In 100 Sodium Chloride 0.9% 50 ml @ 100 mls/hr IVPB Q24HR [facility] Rx#:[id number] Dextrose 5% in Water 1, 0 000 ml @ 50 mls/hr IV . Q20H [facility] Rx#:[id number] Mvi, Adult No.4 with Vit 1081.8 K 10 ml Trace (Conc-1Ml/ Dose) 1 ml Sodium Acetate 10 meq Potassium Acetate 20 meq Calcium Gluconate 1 gm Potassium Phosphate 15 mmol Magnesium Sulfate gm 0.25 gm In Amino Acids 5 %/Dextrose 20 % 1,000 ml @ 108 mls/ hr IV .BY DURATION [facility] Rx #:[id number] Piperacillin-Tazobactam 3 100 .375 gm In Sodium Chloride 0.9% 100 ml @ 25 mls/hr IVPB Q8HR [facility] Rx# :[id number] Sodium Acetate 10 meq 1030.5 Potassium Acetate 20 meq Calcium Gluconate 1 gm Potassium Phosphate 15 mmol Magnesium Sulfate gm 0.25 gm In Amino Acids 5 %/Dextrose 20 % 1,000 ml @ 108 mls/hr IV .BY DURATION [facility] Rx#: [id number] Oral 1400 Output: Urine 1300 1650 Other: Voiding Method Urinal Urinal Urinal # Voids 1 0 0 # Bowel Movements 1 ABP, PAP, CO, CI - Last Documented Arterial Blood Pressure 158/44 - Exam GENERAL EXAM: Alert, 52-year-old male patient, on room air, fairly comfortable in no apparent distress. HEAD: Normocephalic. EYES: Normal reaction of pupils, equal size. NOSE: Nasogastric tube secured in place. Clear with pink turbinates. THROAT: No erythema or exudates. NECK: No masses, no JVD. CHEST: No chest wall deformity. LUNGS: Equal air entry with no crackles, wheeze, rhonchi or dullness. CVS: S1 and S2 normal with no audible murmur, regular rhythm. ABDOMEN: Midline incision with wound VAC intact. SARAI drain in place. Serous purulent drainage. Increased abdominal distention. SPINE: No scoliosis or deformity SKIN: No rashes CENTRAL NERVOUS SYSTEM: No focal deficits, tone is normal in all 4 extremities. EXTREMITIES: There is no peripheral edema. No clubbing, no cyanosis. Peripheral pulses are intact. - Labs CBC & Chem 7: 09/11/22 03:37 09/11/22 03:37 Labs: Abnormal Lab Results - Last 24 Hours (Table) 09/10/22 09/10/22 09/10/22 Range/Units 11:31 17:41 23:39 WBC (3.8-10.6) k/uL RBC (4.30-5.90) m/uL Hgb (13.0-17.5) gm/dL Hct (39.0-53.0) % Neutrophils # (1.3-7.7) k/uL Lymphocytes # (1.0-4.8) k/uL Sodium (137-145) mmol/L Glucose (74-99) mg/dL POC Glucose (mg/dL) 115 H 150 H 151 H (70-110) mg/dL Calcium (8.4-10.2) mg/dL 09/11/22 09/11/22 09/11/22 Range/Units 03:37 03:37 06:51 WBC 16.0 H (3.8-10.6) k/uL RBC 3.18 L (4.30-5.90) m/uL Hgb 9.1 L (13.0-17.5) gm/dL Hct 27.0 L (39.0-53.0) % Neutrophils # 13.9 H (1.3-7.7) k/uL Lymphocytes # 0.9 L (1.0-4.8) k/uL Sodium 136 L (137-145) mmol/L Glucose 124 H (74-99) mg/dL POC Glucose (mg/dL) 140 H (70-110) mg/dL Calcium 8.1 L (8.4-10.2) mg/dL Microbiology - Last 24 Hours (Table) 09/08/22 09:24 Blood Culture - Preliminary Blood 09/04/22 18:21 Blood Culture - Final Blood Assessment and Plan Assessment: Acute pneumoperitoneum, secondary to perforated colonic diverticulum and transverse colon. Status post robotic-assisted laparoscopy with extensive lysis of adhesions, right hemicolectomy and primary anastomosis and drainage of abdomi nal abscess abdominal peritoneal lavage and placement of SARAI drain as well as incisional wound VAC system. Follow-up computed tomography scan 09/10/2022 revealed loculated and non-loculated perihepatic collections some of which demonstrate mildly thickened almeida with internal foci of air.. Hepatic abscesses are not excluded. Persistent dilatation of the small bowel small bowel wall thickening and inflammatory change in the interval colonic anastomotic site. Persistent postoperative ileus and/or obstructive change is not excluded. Adjacent drains in place. Leak is difficult to exclude. Small amount of free air persistent but improved. Severe abdominal sepsis secondary to E. coli, pseudomonas aeruginosa, enterococcus faecium Febrile illness secondary to above, blood cultures pending Sinus tachycardia secondary to sepsis History of colon cancer status post resection Acute kidney injury, improved Acute lactic acidosis secondary to sepsis Intra-abdominal abscess Abdominal ascites History of sarcoidosis Plan: The patient was seen and evaluated Chest x-ray, labs and medications reviewed Computed tomography scan of the abdomen reviewed Plan is for interventional radiology to drain the perihepatic liver abscesses Continue Zosyn, daptomycin Continue to work with the incentive spirometer We will continue to follow I have personally seen and examined the patient, performed the documentation and the assessment and plan as written. Number of minutes spent on the visit: 10.
--- NOTE | 2022-09-11 10:50 | US ---
EXAMINATION TYPE: US abdomen limited DATE OF EXAM: 09/11/2022 COMPARISON: CT abdomen pelvis 09/10/2022 CLINICAL INDICATION: Male, 52 years old with history of Perihepatic abscess; ICU patient. Per Dr Abiel callejas, scan perihepatic abscess for possible IR procedure. TECHNIQUE: Multiple sonographic images of the right upper quadrant perihepatic area of concern are ob tained. FINDINGS/IMPRESSION: Loculated fluid along the capsule of the right hepatic lobe with foci of gas identified corresponding to CT. Gas limits evaluation. Posterior and inferior perihepatic fluid collection with internal debris identified corresponding to CT. This measures at least 3.5 cm in thickness. These collections may communicate with corresponding with CT. These collections appear to represent abscesses.
--- NOTE | 2022-09-11 10:58 | P.PN ---
Subjective Patient is seen for follow-up for acute kidney injury. Renal function has improved. Serum creatinine 0.9 mg/dL Maintained on TPN Good urine output. Objective - Vital Signs Vital signs: Vital Signs Temp 98.4 F 09/11/22 04:00 Pulse 112 H 09/11/22 10:00 Resp 23 09/11/22 10:00 BP 148/99 09/11/22 10:00 Pulse Ox 96 09/11/22 09:00 FiO2 40 09/05/22 12:00 Intake & Output 09/10/22 09/11/22 09/11/22 18:59 06:59 18:59 Intake Total 3912.3 2537.5 582 Output Total 1300 1650 600 Balance 2612.3 887.5 -18 Weight 103.4 kg 103.4 kg Intake: IV 200 1496 532 Dextrose 5% in Water 1, 200 000 ml @ 50 mls/hr IV . Q20H [facility] Rx#:[id number] Magnesium Sulfate-D5w Pmx 100 1 gm In Dextrose/Water 1 100ml.bag @ 100 mls/hr IVPB ONCE [facility] Rx#: [id number] Mvi, Adult No.4 with Vit 1296 432 K 10 ml Trace (Conc-1Ml/ Dose) 1 ml Sodium Acetate 10 meq Potassium Acetate 20 meq Calcium Gluconate 1 gm Potassium Phosphate 15 mmol Magnesium Sulfate gm 0.25 gm In Amino Acids 5 %/Dextrose 20 % 1,000 ml @ 108 mls/ hr IV .BY DURATION [facility] Rx #:[id number] Piperacillin-Tazobactam 3 100 100 .375 gm In Sodium Chloride 0.9% 100 ml @ 25 mls/hr IVPB Q8HR [facility] Rx# :[id number] Intake, IV Titration 2312.3 1041.5 50 Amount DAPTOmycin 500 mg In 100 50 Sodium Chloride 0.9% 50 ml @ 100 mls/hr IVPB Q24HR [facility] Rx#:[id number] Dextrose 5% in Water 1, 0 000 ml @ 50 mls/hr IV . Q20H [facility] Rx#:[id number] Mvi, Adult No.4 with Vit 1081.8 1041.5 K 10 ml Trace (Conc-1Ml/ Dose) 1 ml Sodium Acetate 10 meq Potassium Acetate 20 meq Calcium Gluconate 1 gm Potassium Phosphate 15 mmol Magnesium Sulfate gm 0.25 gm In Amino Acids 5 %/Dextrose 20 % 1,000 ml @ 108 mls/ hr IV .BY DURATION [facility] Rx #:[id number] Piperacillin-Tazobactam 3 100 .375 gm In Sodium Chloride 0.9% 100 ml @ 25 mls/hr IVPB Q8HR [facility] Rx# :[id number] Sodium Acetate 10 meq 1030.5 Potassium Acetate 20 meq Calcium Gluconate 1 gm Potassium Phosphate 15 mmol Magnesium Sulfate gm 0.25 gm In Amino Acids 5 %/Dextrose 20 % 1,000 ml @ 108 mls/hr IV .BY DURATION [facility] Rx#: [id number] Oral 1400 0 Output: Urine 1300 1650 600 Other: Voiding Method Urinal Urinal Urinal # Voids 1 0 0 # Bowel Movements 1 ABP, PAP, CO, CI - Last Documented Arterial Blood Pressure 158/44 - Exam Awake, comfortable, no acute distress Examination of the heart S1 and S2 Examination of the lungs bilateral breath sounds are heard Abdomen is soft, distended, incision is dressed Drain noted Examination of lower extremity shows no edema - Labs CBC & Chem 7: 09/11/22 03:37 09/11/22 03:37 Labs: Abnormal Lab Results - Last 24 Hours (Table) 09/10/22 09/10/22 09/10/22 Range/Units 11:31 17:41 23:39 WBC (3.8-10.6) k/uL RBC (4.30-5.90) m/uL Hgb (13.0-17.5) gm/dL Hct (39.0-53.0) % Neutrophils # (1.3-7.7) k/uL Lymphocytes # (1.0-4.8) k/uL Sodium (137-145) mmol/L Glucose (74-99) mg/dL POC Glucose (mg/dL) 115 H 150 H 151 H (70-110) mg/dL Calcium (8.4-10.2) mg/dL 09/11/22 09/11/22 09/11/22 Range/Units 03:37 03:37 06:51 WBC 16.0 H (3.8-10.6) k/uL RBC 3.18 L (4.30-5.90) m/uL Hgb 9.1 L (13.0-17.5) gm/dL Hct 27.0 L (39.0-53.0) % Neutrophils # 13.9 H (1.3-7.7) k/uL Lymphocytes # 0.9 L (1.0-4.8) k/uL Sodium 136 L (137-145) mmol/L Glucose 124 H (74-99) mg/dL POC Glucose (mg/dL) 140 H (70-110) mg/dL Calcium 8.1 L (8.4-10.2) mg/dL Microbiology - Last 24 Hours (Table) 09/08/22 09:24 Blood Culture - Preliminary Blood 09/04/22 18:21 Blood Culture - Final Blood Assessment and Plan Assessment: 1. Acute kidney injury, nonoliguric ischemic ATN from hypotension and sepsis. Renal function is improving. UA is quite benign. 2. Intra-abdominal abscess status post explorative laparotomy and further colon resection and drainage of abscess with lysis of adhesions 3. Colon cancer status post initial partial colectomy on 08/29/2022 4. History of sarcoidosis with asthma. 5. Sepsis from intra-abdominal abscess 6. Hypernatremia, status post D5W, currently on TPN. Improved Plan: Repeat labs in a.m. and continue to monitor electrolytes.
--- NOTE | 2022-09-11 12:26 | P.PN ---
Subjective Progress Note Date: 09/11/22 This is a 52 year old male monitored in the intensive care unit postoperative day #4 lysis of adhesions and right hemicolectomy due to bowel perforation. Patient had end to end anastamosis. Has not had bowel movement, had KUB xray today showing multiple dilated small bowel loops possible ileus vs. obstruction. General surgery recommending patient to be NPO at this time. Heart rate remains elevated in the 120s and patient switched to IV lopressor. Remains on IV daptomycin and IV zosyn for positive peritoneal fluid culture with E. Coli, enterococcus and pseudomonas. Blood culture negative so far. Patient remains on D5 water at 100 mls/hr, sodium is slightly improved today down to 146. Continues on TPN, NG tube has been discontinued. Accuchecks switched to Q6h and small dose of levemir HS has been added. SARAI drain in place with serous drainage. Patient febrile today up to 101.9, encouraged to continue with incentive spirometer. Patient has wound vac in place to continuous suction, plan to ambulate around the room and up in the chair today. 09/09/2022 Patient is evaluated today in the ICU resting in bed. Alert x 3. Asking about discharge. Repeat blood culture is pending patient remains on IV antibiotics. White count up to 19.7 today. Patient reports BM yesterday and passing some gas today. Abdomen is more distended. Surgery recommending NG tube today. Patient remains NPO. Midline incisional wound vac in place. Patient remains with fever, using incentive spirometer reaching 1200. Continues on TPN. 09/10/2022 Patient remains in the intensive care unit. Patient continues to be NPO. 3 attempts were made to pass NG tube and were unsuccessful. Patient did have 2 BMs yesterday, abdomen remains significantly distended. Repeat abdominal pelvis CT reveals loculated and nonloculated perihepatic collections some of which demonstrate mildly thickened almeida with internal foci of air. Perihepatic abscesses are not excluded. Persistent dilation of small bowel with small bowel wall thickening and inflammatory change at the enterocolonic anastomotic site. Persistent postoperative ileus and/or obstructive changes not excluded. Adjacent drain is in place. Contrast does not opacify the anastomotic site and therefore leak is difficult to evaluate or exclude. Small amt of free air persists improved from prior study. White count 18.3 today, electrolytes are normalized and blood glucose improved to 115. Patient remains on TPN. Blood culture remains negative. Remains on IV zosyn and IV daptomycin. Temp of 100.4 and remains tachycardic 121, blood pressure stable at 131/94. 09/11/2022 Patient is evaluated today in the intensive care unit. Remains tachycardic and T-Max of 100.7 overnight. Scheduled to undergo drainage and placement of drainage tube to the perihepatic abscess noted on CT imaging with IR today. White count down to 16.0 today. Continues on IV daptoymcin and IV vancomycin. Per nursing did have a small BM overnight. Review of Systems Constitutional: Denied any fatigue denied any fever. Cardio vascular: denied any chest pain, palpitations Gastrointestinal: denied any nausea, vomiting, reports bloating. Pulmonary: Denied any shortness of breath cough Neurologic denied any new focal deficits, All inpatient medications were reviewed and appropriate changes in these medications as dictated in the interval history and assessment and plan. PHYSICAL EXAMINATION: GENERAL: The patient is alert and oriented x3, not in any acute distress. Well developed, well nourished. HEENT: Pupils are round and equally reacting to light. EOMI. No scleral icterus. No conjunctival pallor. Normocephalic, atraumatic. No pharyngeal erythema. No thyromegaly. CARDIOVASCULAR: S1 and S2 present. No murmurs, rubs, or gallops. PULMONARY: Chest is clear to auscultation, no wheezing or crackles. ABDOMEN: Soft, tender, distended, hypoactive bowel sounds. No palpable organomegaly. Post surgical, midline woundvac in place. More distended than yesterday. MUSCULOSKELETAL: No joint swelling or deformity. EXTREMITIES: No cyanosis, clubbing, or pedal edema. NEUROLOGICAL: Gross neurological examination did not reveal any focal deficits. Mild generalized weakness. SKIN: No rashes. Assessment Sepsis secondary to perforated diverticulum postoperative day #7 evacuation of abscess, lysis of adhesions, right hemicolectomy Postoperative ileus f/u abdominal CT unable to exclude perihepatic abscess/anastomotic leak. Fever and persistent sinus tachycardia Colon cancer s/p resection on 08/29/2022 Acute kidney injury secondary to ATN and sepsis resolved Leukocytosis Hypernatremia resolved Hx hyperlipidemia Sarcoidosis with asthma Nicotine use GI prophylaxis DVT prophylaxis Full Code Plan Continue IV antibiotics, infectious disease following closely Patient continues to be febrile and blood cultures have been repeated and pending Continue with TPN, patient is currently NPO, unsuccessful attempt at NG tube placement Continue CBG Q6h hour and novolog s/s q6h. Continue IV metoprolol for the tachycardia IV fluids discontinued Encourage ambulation, increase activity level and incentive spirometer Patient scheduled to undergo CT guided abscess drainage today with IR and visceral fluid drainage with surgery. Follow up AM labs. The impression and plan of care has been dictated by Misty Fairchild, Nurse Practitioner as directed. Dr. Kai MD I have performed a history and physical examination and medical decision making of this patient, discussed the same with the dictator, and agree with the dictators assessment and plan as written, documented as a scribe. Based on total visit time, I have performed more than 50% of this visit. Objective - Vital Signs Vital signs: Vital Signs Temp 98.4 F 09/11/22 04:00 Pulse 112 H 09/11/22 10:00 Resp 23 09/11/22 10:00 BP 148/99 09/11/22 10:00 Pulse Ox 96 09/11/22 09:00 FiO2 40 09/05/22 12:00 Intake & Output 09/10/22 09/11/22 09/11/22 18:59 06:59 18:59 Intake Total 3912.3 2537.5 582 Output Total 1300 1650 600 Balance 2612.3 887.5 -18 Weight 103.4 kg 103.4 kg Intake: IV 200 1496 532 Dextrose 5% in Water 1, 200 000 ml @ 50 mls/hr IV . Q20H [facility] Rx#:[id number] Magnesium Sulfate-D5w Pmx 100 1 gm In Dextrose/Water 1 100ml.bag @ 100 mls/hr IVPB ONCE [facility] Rx#: [id number] Mvi, Adult No.4 with Vit 1296 432 K 10 ml Trace (Conc-1Ml/ Dose) 1 ml Sodium Acetate 10 meq Potassium Acetate 20 meq Calcium Gluconate 1 gm Potassium Phosphate 15 mmol Magnesium Sulfate gm 0.25 gm In Amino Acids 5 %/Dextrose 20 % 1,000 ml @ 108 mls/ hr IV .BY DURATION [facility] Rx #:[id number] Piperacillin-Tazobactam 3 100 100 .375 gm In Sodium Chloride 0.9% 100 ml @ 25 mls/hr IVPB Q8HR [facility] Rx# :[id number] Intake, IV Titration 2312.3 1041.5 50 Amount DAPTOmycin 500 mg In 100 50 Sodium Chloride 0.9% 50 ml @ 100 mls/hr IVPB Q24HR [facility] Rx#:[id number] Dextrose 5% in Water 1, 0 000 ml @ 50 mls/hr IV . Q20H [facility] Rx#:[id number] Mvi, Adult No.4 with Vit 1081.8 1041.5 K 10 ml Trace (Conc-1Ml/ Dose) 1 ml Sodium Acetate 10 meq Potassium Acetate 20 meq Calcium Gluconate 1 gm Potassium Phosphate 15 mmol Magnesium Sulfate gm 0.25 gm In Amino Acids 5 %/Dextrose 20 % 1,000 ml @ 108 mls/ hr IV .BY DURATION [facility] Rx #:[id number] Piperacillin-Tazobactam 3 100 .375 gm In Sodium Chloride 0.9% 100 ml @ 25 mls/hr IVPB Q8HR [facility] Rx# :[id number] Sodium Acetate 10 meq 1030.5 Potassium Acetate 20 meq Calcium Gluconate 1 gm Potassium Phosphate 15 mmol Magnesium Sulfate gm 0.25 gm In Amino Acids 5 %/Dextrose 20 % 1,000 ml @ 108 mls/hr IV .BY DURATION [facility] Rx#: [id number] Oral 1400 0 Output: Urine 1300 1650 600 Other: Voiding Method Urinal Urinal Urinal # Voids 1 0 0 # Bowel Movements 1 ABP, PAP, CO, CI - Last Documented Arterial Blood Pressure 158/44 - Labs CBC & Chem 7: 09/11/22 03:37 09/11/22 03:37 Labs: Abnormal Lab Results - Last 24 Hours (Table) 09/10/22 09/10/22 09/11/22 Range/Units 17:41 23:39 03:37 WBC (3.8-10.6) k/uL RBC (4.30-5.90) m/uL Hgb (13.0-17.5) gm/dL Hct (39.0-53.0) % Neutrophils # (1.3-7.7) k/uL Lymphocytes # (1.0-4.8) k/uL Sodium 136 L (137-145) mmol/L Glucose 124 H (74-99) mg/dL POC Glucose (mg/dL) 150 H 151 H (70-110) mg/dL Calcium 8.1 L (8.4-10.2) mg/dL 09/11/22 09/11/22 Range/Units 03:37 06:51 WBC 16.0 H (3.8-10.6) k/uL RBC 3.18 L (4.30-5.90) m/uL Hgb 9.1 L (13.0-17.5) gm/dL Hct 27.0 L (39.0-53.0) % Neutrophils # 13.9 H (1.3-7.7) k/uL Lymphocytes # 0.9 L (1.0-4.8) k/uL Sodium (137-145) mmol/L Glucose (74-99) mg/dL POC Glucose (mg/dL) 140 H (70-110) mg/dL Calcium (8.4-10.2) mg/dL Microbiology - Last 24 Hours (Table) 09/08/22 09:24 Blood Culture - Preliminary Blood 09/04/22 18:21 Blood Culture - Final Blood Assessment and Plan Time with Patient: Less than 30
[2022-09-11 13:32] LABS: Glucose,Whole Blood 142 mg/dL (70-110)
--- NOTE | 2022-09-11 15:09 | P.PN ---
Subjective Progress Note Date: 09/11/22 Principal diagnosis: Intra-abdominal abscess Patient is a 52-year-old male presenting to the hospital with abdominal pain has been diagnosed with an intra-abdominal abscess from perforated diverticulum status post laparotomy and drainage of the abscess. Patient is status post IR drainage of perihepatic abscess completed on 09/11/2022 n today's evaluation that is 09/11/2022, the patient fever pattern has improved, the patient is breathing comfortably on room air , the patient denies any chest pain or shortness of breath or cough, the patient abdominal pain is currently controlled , no vomiting has been reported Objective - Vital Signs Vital signs: Vital Signs Temp 99.2 F 09/11/22 12:00 Pulse 116 H 09/11/22 12:00 Resp 24 09/11/22 12:00 BP 144/105 09/11/22 12:00 Pulse Ox 96 09/11/22 09:00 FiO2 40 09/05/22 12:00 Intake & Output 09/10/22 09/11/22 09/11/22 18:59 06:59 18:59 Intake Total 3912.3 2537.5 798 Output Total 1300 1650 600 Balance 2612.3 887.5 198 Weight 103.4 kg 103.4 kg Intake: IV 200 1496 748 Dextrose 5% in Water 1, 200 000 ml @ 50 mls/hr IV . Q20H [facility] Rx#:[id number] Magnesium Sulfate-D5w Pmx 100 1 gm In Dextrose/Water 1 100ml.bag @ 100 mls/hr IVPB ONCE ONE Rx#: [id number] Mvi, Adult No.4 with Vit 1296 648 K 10 ml Trace (Conc-1Ml/ Dose) 1 ml Sodium Acetate 10 meq Potassium Acetate 20 meq Calcium Gluconate 1 gm Potassium Phosphate 15 mmol Magnesium Sulfate gm 0.25 gm In Amino Acids 5 %/Dextrose 20 % 1,000 ml @ 108 mls/ hr IV .BY DURATION [facility] Rx #:[id number] Piperacillin-Tazobactam 3 100 100 .375 gm In Sodium Chloride 0.9% 100 ml @ 25 mls/hr IVPB Q8HR [facility] Rx# :[id number] Intake, IV Titration 2312.3 1041.5 50 Amount DAPTOmycin 500 mg In 100 50 Sodium Chloride 0.9% 50 ml @ 100 mls/hr IVPB Q24HR [facility] Rx#:[id number] Dextrose 5% in Water 1, 0 000 ml @ 50 mls/hr IV . Q20H [facility] Rx#:[id number] Mvi, Adult No.4 with Vit 1081.8 1041.5 K 10 ml Trace (Conc-1Ml/ Dose) 1 ml Sodium Acetate 10 meq Potassium Acetate 20 meq Calcium Gluconate 1 gm Potassium Phosphate 15 mmol Magnesium Sulfate gm 0.25 gm In Amino Acids 5 %/Dextrose 20 % 1,000 ml @ 108 mls/ hr IV .BY DURATION [facility] Rx #:[id number] Piperacillin-Tazobactam 3 100 .375 gm In Sodium Chloride 0.9% 100 ml @ 25 mls/hr IVPB Q8HR [facility] Rx# :[id number] Sodium Acetate 10 meq 1030.5 Potassium Acetate 20 meq Calcium Gluconate 1 gm Potassium Phosphate 15 mmol Magnesium Sulfate gm 0.25 gm In Amino Acids 5 %/Dextrose 20 % 1,000 ml @ 108 mls/hr IV .BY DURATION [facility] Rx#: [id number] Oral 1400 0 Output: Urine 1300 1650 600 Other: Voiding Method Urinal Urinal Urinal # Voids 1 0 0 # Bowel Movements 1 ABP, PAP, CO, CI - Last Documented Arterial Blood Pressure 158/44 - Exam GENERAL DESCRIPTION: A middle-age male lying in bed in no distress RESPIRATORY SYSTEM: Unlabored breathing , decreased breath sounds at bases HEART: S1 S2 regular rate and rhythm , ABDOMEN: Soft , mild distention and tenderness EXTREMITIES: No edema feet - Labs CBC & Chem 7: 09/11/22 03:37 09/11/22 03:37 Labs: Abnormal Lab Results - Last 24 Hours (Table) 09/10/22 09/10/22 09/11/22 Range/Units 17:41 23:39 03:37 WBC (3.8-10.6) k/uL RBC (4.30-5.90) m/uL Hgb (13.0-17.5) gm/dL Hct (39.0-53.0) % Neutrophils # (1.3-7.7) k/uL Lymphocytes # (1.0-4.8) k/uL Sodium 136 L (137-145) mmol/L Glucose 124 H (74-99) mg/dL POC Glucose (mg/dL) 150 H 151 H (70-110) mg/dL Calcium 8.1 L (8.4-10.2) mg/dL 09/11/22 09/11/22 Range/Units 03:37 06:51 WBC 16.0 H (3.8-10.6) k/uL RBC 3.18 L (4.30-5.90) m/uL Hgb 9.1 L (13.0-17.5) gm/dL Hct 27.0 L (39.0-53.0) % Neutrophils # 13.9 H (1.3-7.7) k/uL Lymphocytes # 0.9 L (1.0-4.8) k/uL Sodium (137-145) mmol/L Glucose (74-99) mg/dL POC Glucose (mg/dL) 140 H (70-110) mg/dL Calcium (8.4-10.2) mg/dL Microbiology - Last 24 Hours (Table) 09/08/22 09:24 Blood Culture - Preliminary Blood 09/04/22 18:21 Blood Culture - Final Blood Assessment and Plan (1) Intra-abdominal abscess Current Visit: Yes Status: Acute Code(s): K65.1 - PERITONEAL ABSCESS SNOMED Code(s): 80807665 Plan: 1patient with sepsis in this patient who did have a fever tachycardia elevated white count source is intra-abdominal in this patient with evidence of colonic diverticular perforation intra-abdominal abscess status post laparotomy drainage of the abscess and primary anastomosis , cultures growing E. coli Pseudomonas and Enterococcus faecium with sensitivities pending. 2patient with fever and elevated white count concerning for perihepatic abscess, the patient is status post CT-guided drainage culture has been obtained those will be followed 3-patient white count is trending down on the 16,000 today 4-patient to continue with the Zosyn and daptomycin while waiting for the cultures to be finalized and monitor clinical course> Time with Patient: Less than 30
--- NOTE | 2022-09-11 15:16 | CT ---
EXAMINATION TYPE: CT guided abscess drainage DATE OF EXAM: 09/11/2022 COMPARISON: 09/10/2022 HISTORY: liver abscess drainage tube CT DLP: 2115.20 mGycm The procedure is discussed with the patient, the risks, complications, benefits and alternatives, wer e discussed and any questions were answered. Informed consent was obtained. The patient is placed s upine on the CT table, prepped and draped in the usual sterile fashion. Utilizing a 22-gauge Chiba needle access into right perihepatic fluid collection was achieved with pl acement of a O.018 guidewire. Conversion to a 0.035 system, serial dilation 8 [place] and placement of an 8 [place] drainage catheter. Repeat imaging demonstrated a new placement of catheter. Approximatel y 100 cc of purulent material was immediately aspirated to pathology for analysis.. Pathology pendin g. All elements of maximal barrier technique were utilized. The patient remained stable throughout the procedure with no immediate postprocedural complication. IMPRESSION: 1. Successful CT guided right perihepatic abscess drainage catheter insertion.
[2022-09-11 17:38] LABS: Glucose,Whole Blood 137 mg/dL (70-110)
--- NOTE | 2022-09-11 19:54 | P.PN ---
Progress Note - Text Progress Note Date: 09/11/22 Patient is status post interventional radiology drainage of liver abscess. Patient reports moderate amount of purulent drainage. CT-guided report demonstrated over 100 mL of purulent aspirate sent for cultures. He reports feeling much better. He is able to breathe better. Drainage bag with moderate purulent material. Patient arranged for conference call with myself, his and his mother. All questions addressed regarding anticipated care and procedure done today by radiology. Disposition home pending resolution of sepsis, leukocytosis, fevers and likely transition home with PICC line and IV antibiotics. Discussion of pathology report demonstrating large tumor over 10 cm resected. Further discussions for need of chemotherapy per oncology. At bedside, pelvic drain discontinued. Midline dressing discontinued with immediate over 50 to 100 mL fluid collection drained from the midline incision above the umbilicus. Sanguinopurulent drainage malodorous removed. Aerobic and anaerobic cultures obtained and sent. Immediately, patient reports moderate improvement of his abdominal pain. Patient's tachycardia had spontaneously resolved after drainage of subcutaneous tissue fluid collection. May start clear liquid diet and advance as tolerated. Anticipated disposition h ome in 5-7 days with IV antibiotics and home healthcare
[2022-09-11 23:48] LABS: Glucose,Whole Blood 150 mg/dL (70-110)
[2022-09-12] MEDS: INSULIN ASPART (NovoLOG) 100 UNIT/ML VIAL SQ SCH ×4 (00:20→18:05)
[2022-09-12] MEDS: PIPERACILLIN-TAZOBACTAM 3.375 GM in SODIUM CHLORIDE 0.9% 100 ML IVPB SCH ×4 (00:43→23:44)
[2022-09-12] MEDS: HYDROmorphone 1 MG/ML 1 ML SYRINGE IVP PRN ×7 (00:44→23:44)
[2022-09-12] MEDS: METOPROLOL TARTRATE 5 MG/5 ML VIAL IVP SCH ×3 (00:44→12:05)
[2022-09-12] MEDS: METOCLOPRAMIDE 5 MG/ML 2 ML VIAL IVP SCH ×4 (00:45→18:05)
[2022-09-12 04:39] LABS: Basophils % (A) 0 %; Eosinophils # (A) 0.2 k/uL (0-0.7); Eosinophils % (A) 2 %; HCT 26.8 % (39.0-53.0); HGB 8.8 gm/dL (13.0-17.5); Lymphocytes # (A) 0.9 k/uL (1.0-4.8); Lymphocytes % (A) 7 %; MCH 27.9 pg (25.0-35.0); MCHC 32.9 g/dL (31.0-37.0); MCV 84.6 fL (80.0-100.0); Mean Platelet Volume 9.1; Monocytes # (A) 0.7 k/uL (0-1.0); Monocytes % (A) 5 %; Neutrophils # (A) 10.7 k/uL (1.3-7.7); Neutrophils % (A) 84 %; Platelet Count 302 k/uL (150-450); RBC 3.17 m/uL (4.30-5.90); RDW 14.7 % (11.5-15.5); WBC 12.8 k/uL (3.8-10.6)
[2022-09-12 04:43] LABS: African American GFR (CKD) >90 (>60 ml/min/1.73 sqM); Anion Gap 7 mmol/L; Blood Urea Nitrogen 15 mg/dL (9-20); Calcium 8.1 mg/dL (8.4-10.2); Carbon Dioxide 24 mmol/L (22-30); Chloride 104 mmol/L (98-107); Glucose 149 mg/dL (74-99); Magnesium 1.9 mg/dL (1.6-2.3); Non-African American GFR(CKD) >90 (>60 ml/min/1.73 sqM); Potassium 4.8 mmol/L (3.5-5.1); Sodium 135 mmol/L (137-145)
[2022-09-12 06:11] LABS: Glucose,Whole Blood 163 mg/dL (70-110)
[2022-09-12] MEDS: INSULIN DETEMIR (LEVEMIR) 100 UNIT/ML SYR SQ SCH ×2 (06:19→20:21)
[2022-09-12] MEDS: HEPARIN SODIUM,PORCINE/PF 5,000 UNIT/0.5 ML SYRINGE SQ SCH ×2 (08:14→22:40)
[2022-09-12] MEDS: PANTOPRAZOLE 40 MG/10 ML VIAL IV SCH (08:14)
[2022-09-12] MEDS: SIMETHICONE 80 MG CHEWABLE PO SCH ×4 (09:00→22:40)
[2022-09-12] MEDS: DAPTOmycin 500 MG in SODIUM CHLORIDE 0.9% 50 ML IVPB SCH (09:00)
--- NOTE | 2022-09-12 09:22 | P.PN ---
Subjective Progress Note Date: 09/12/22 CHIEF COMPLAINT: Pneumoperitoneum, abdominal pain HISTORY OF PRESENT ILLNESS: The patient is a 52-year-old male status post right hemicolectomy for colon cancer 08/29/2022. He was discharged from the hospital without sequelae 08/31/2022 and returned to the hospital 09/03/2022 for pneumoperitoneum. He is status post exploratory laparotomy, lysis of adhesions, evacuation of intra-abdominal abscess, right hemicolectomy for resection of perforated transverse colon diverticulum, 09/04/2022. His fever curve has improved after his perihepatic abscess drainage and incisional wound drainage. He is tolerating clear liquids, having bowel movements and passing flatus. ROS: Has fevers, T-max 99.7F . No chills. No new chest pain. Denies blood in stools. PHYSICAL EXAM: VITAL SIGNS: Reviewed CONSTITUTIONAL: Well developed and in no acute distress. EYES: Conjuctivae without sclera icterus. Extraocular movements grossly intact. HEAD, EARS, NOSE, THROAT: Moist buccal mucosa. Head is atraumatic, normocephalic. Hears conversational speech. RESPIRATORY:abored breathing CARDIOVASCULAR: Palpable 2+ radial pulses. Tachycardic. ABDOMEN: Dressing intact after drainage of subcutaneous after last night. Alfredo removed with 2-cm wound for drainage. MUSCULOSKELETAL: No gross deformity of the lower extremities noted. No clubbing. No cyanosis. SKIN: Good skin turgor. Well perfused. NEUROLOGIC: Cranial nerves II through XII grossly intact. No focal or lateralizing signs. PSYCH: Appropriate affect. Alert and oriented to person, place and time. CLINICAL LABS: Reviewed. WBC declining from 19.7 down to 12.6 leukocytosis. MICRO: Multiple organisms including Enterococcus, pseudomonas, Enterobacter of peritoneal fluid. Blood cultures no growth to date. 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 Pneumoperitoneum due to perforated diverticulum 2. Tachycardia with fevers consistent with sepsis 3. Acute kidney injury, failure due to severe sepsis 4. Colon cancer status post resection 5. Liver abscess, para hepatic 6. Incisional wound abscess PLAN: 1. Will re-consult cardiology for tachycardia 2. Advance diet as tolerated 3. Discharge pending resolution of fevers, leukocytosis, and tolerating regular diet 4. Will need home health care for CT drainage bag and abdominal wound with PICC line 5. Start oral Metoprolol Objective - Vital Signs Vital signs: Vital Signs Temp 99.5 F 09/12/22 08:00 Pulse 110 H 09/12/22 09:00 Resp 25 H 09/12/22 09:00 BP 139/83 09/12/22 08:00 Pulse Ox 95 09/12/22 09:00 FiO2 40 09/05/22 12:00 Intake & Output 09/11/22 09/12/22 09/12/22 18:59 06:59 18:59 Intake Total 1546 2331.5 640 Output Total 1775 2375 0 Balance -229 -43.5 640 Weight 107.1 kg Intake: IV 1496 1296 424 Mvi, Adult No.4 with Vit 1296 1296 324 K 10 ml Trace (Conc-1Ml/ Dose) 1 ml Sodium Acetate 10 meq Potassium Acetate 20 meq Calcium Gluconate 1 gm Potassium Phosphate 15 mmol Magnesium Sulfate gm 0.25 gm In Amino Acids 5 %/Dextrose 20 % 1,000 ml @ 108 mls/ hr IV .BY DURATION [facility] Rx #:[id number] Piperacillin-Tazobactam 3 200 100 .375 gm In Sodium Chloride 0.9% 100 ml @ 25 mls/hr IVPB Q8HR [facility] Rx# :[id number] Intake, IV Titration 50 1035.5 216 Amount DAPTOmycin 500 mg In 50 Sodium Chloride 0.9% 50 ml @ 100 mls/hr IVPB Q24HR [facility] Rx#:[id number] Mvi, Adult No.4 with Vit 216 K 10 ml Trace (Conc-1Ml/ Dose) 1 ml Sodium Acetate 20 meq Potassium Acetate 20 meq Calcium Gluconate 1 gm Potassium Phosphate 15 mmol Magnesium Sulfate gm 0.4 gm In Amino Acids 5 %/Dextrose 20 % 1,000 ml @ 108 mls/ hr IV .BY DURATION [facility] Rx #:[id number] Sodium Acetate 20 meq 1035.5 Potassium Acetate 20 meq Calcium Gluconate 1 gm Potassium Phosphate 15 mmol Magnesium Sulfate gm 0.25 gm In Amino Acids 5 %/Dextrose 20 % 1,000 ml @ 108 mls/hr IV .BY DURATION [facility] Rx#: [id number] Oral 0 Output: Drainage 175 Left Lower Abdomen 5 Right Upper Abdomen 170 Urine 1600 2375 0 Other: Voiding Method Urinal Urinal Urinal # Voids 1 # Bowel Movements 1 ABP, PAP, CO, CI - Last Documented Arterial Blood Pressure 158/44 - Labs CBC & Chem 7: 09/12/22 04:18 09/12/22 04:18 Labs: Abnormal Lab Results - Last 24 Hours (Table) 09/11/22 09/11/22 09/11/22 Range/Units 13:21 17:36 23:45 WBC (3.8-10.6) k/uL RBC (4.30-5.90) m/uL Hgb (13.0-17.5) gm/dL Hct (39.0-53.0) % Neutrophils # (1.3-7.7) k/uL Lymphocytes # (1.0-4.8) k/uL Sodium (137-145) mmol/L Glucose (74-99) mg/dL POC Glucose (mg/dL) 142 H 137 H 150 H (70-110) mg/dL Calcium (8.4-10.2) mg/dL 09/12/22 09/12/22 09/12/22 Range/Units 04:18 04:18 06:09 WBC 12.8 H (3.8-10.6) k/uL RBC 3.17 L (4.30-5.90) m/uL Hgb 8.8 L (13.0-17.5) gm/dL Hct 26.8 L (39.0-53.0) % Neutrophils # 10.7 H (1.3-7.7) k/uL Lymphocytes # 0.9 L (1.0-4.8) k/uL Sodium 135 L (137-145) mmol/L Glucose 149 H (74-99) mg/dL POC Glucose (mg/dL) 163 H (70-110) mg/dL Calcium 8.1 L (8.4-10.2) mg/dL Microbiology - Last 24 Hours (Table) 09/08/22 09:24 Blood Culture - Preliminary Blood
[2022-09-12] MEDS ORDERED: METOPROLOL SUCCINATE (ER) 50 MG TAB.ER.24H PO SCH (09:30)
--- NOTE | 2022-09-12 10:22 | P.PN ---
Subjective Patient is seen for follow-up for acute kidney injury. Renal function has improved. Serum creatinine 0.79 mg/dL Maintained on TPN Good urine output. Patient has started oral intake. Currently on liquids. Sodium at 135 today. Objective - Vital Signs Vital signs: Vital Signs Temp 99.5 F 09/12/22 08:00 Pulse 110 H 09/12/22 09:00 Resp 25 H 09/12/22 09:00 BP 139/83 09/12/22 08:00 Pulse Ox 95 09/12/22 09:00 FiO2 40 09/05/22 12:00 Intake & Output 09/11/22 09/12/22 09/12/22 18:59 06:59 18:59 Intake Total 1546 2331.5 640 Output Total 1775 2375 0 Balance -229 -43.5 640 Weight 107.1 kg Intake: IV 1496 1296 424 Mvi, Adult No.4 with Vit 1296 1296 324 K 10 ml Trace (Conc-1Ml/ Dose) 1 ml Sodium Acetate 10 meq Potassium Acetate 20 meq Calcium Gluconate 1 gm Potassium Phosphate 15 mmol Magnesium Sulfate gm 0.25 gm In Amino Acids 5 %/Dextrose 20 % 1,000 ml @ 108 mls/ hr IV .BY DURATION [facility] Rx #:[id number] Piperacillin-Tazobactam 3 200 100 .375 gm In Sodium Chloride 0.9% 100 ml @ 25 mls/hr IVPB Q8HR [facility] Rx# :[id number] Intake, IV Titration 50 1035.5 216 Amount DAPTOmycin 500 mg In 50 Sodium Chloride 0.9% 50 ml @ 100 mls/hr IVPB Q24HR [facility] Rx#:[id number] Mvi, Adult No.4 with Vit 216 K 10 ml Trace (Conc-1Ml/ Dose) 1 ml Sodium Acetate 20 meq Potassium Acetate 20 meq Calcium Gluconate 1 gm Potassium Phosphate 15 mmol Magnesium Sulfate gm 0.4 gm In Amino Acids 5 %/Dextrose 20 % 1,000 ml @ 108 mls/ hr IV .BY DURATION [facility] Rx #:[id number] Sodium Acetate 20 meq 1035.5 Potassium Acetate 20 meq Calcium Gluconate 1 gm Potassium Phosphate 15 mmol Magnesium Sulfate gm 0.25 gm In Amino Acids 5 %/Dextrose 20 % 1,000 ml @ 108 mls/hr IV .BY DURATION [facility] Rx#: [id number] Oral 0 Output: Drainage 175 Left Lower Abdomen 5 Right Upper Abdomen 170 Urine 1600 2375 0 Other: Voiding Method Urinal Urinal Urinal # Voids 1 # Bowel Movements 1 ABP, PAP, CO, CI - Last Documented Arterial Blood Pressure 158/44 - Exam Awake, comfortable, no acute distress Examination of the heart S1 and S2 Examination of the lungs bilateral breath sounds are heard Abdomen is soft, distended, incision is dressed Drain noted Examination of lower extremity shows no edema - Labs CBC & Chem 7: 09/12/22 04:18 09/12/22 04:18 Labs: Abnormal Lab Results - Last 24 Hours (Table) 09/11/22 09/11/22 09/11/22 Range/Units 13:21 17:36 23:45 WBC (3.8-10.6) k/uL RBC (4.30-5.90) m/uL Hgb (13.0-17.5) gm/dL Hct (39.0-53.0) % Neutrophils # (1.3-7.7) k/uL Lymphocytes # (1.0-4.8) k/uL Sodium (137-145) mmol/L Glucose (74-99) mg/dL POC Glucose (mg/dL) 142 H 137 H 150 H (70-110) mg/dL Calcium (8.4-10.2) mg/dL 09/12/22 09/12/22 09/12/22 Range/Units 04:18 04:18 06:09 WBC 12.8 H (3.8-10.6) k/uL RBC 3.17 L (4.30-5.90) m/uL Hgb 8.8 L (13.0-17.5) gm/dL Hct 26.8 L (39.0-53.0) % Neutrophils # 10.7 H (1.3-7.7) k/uL Lymphocytes # 0.9 L (1.0-4.8) k/uL Sodium 135 L (137-145) mmol/L Glucose 149 H (74-99) mg/dL POC Glucose (mg/dL) 163 H (70-110) mg/dL Calcium 8.1 L (8.4-10.2) mg/dL Microbiology - Last 24 Hours (Table) 09/08/22 09:24 Blood Culture - Preliminary Blood Assessment and Plan Assessment: 1. Acute kidney injury, nonoliguric ischemic ATN from hypotension and sepsis. Renal function is improving. UA is quite benign. 2. Intra-abdominal abscess status post explorative laparotomy and further colon resection and drainage of abscess with lysis of adhesions 3. Colon cancer status post initial partial colectomy on 08/29/2022 4. History of sarcoidosis with asthma. 5. Sepsis from intra-abdominal abscess 6. Hypernatremia, status post D5W, currently on TPN. Improved sodium is currently on the lower side. If patient needs to stay on TPN longer we will need to change the sodium concentration in TPN, otherwise, hopefully it will improve once patient starts to increase his oral intake. Plan: Repeat labs in a.m. and continue to monitor electrolytes. Encourage increased oral intake Increase sodium and TPN if patient needs it for longer time.
--- NOTE | 2022-09-12 10:28 | P.PN ---
Subjective Progress Note Date: 09/12/22 This is a 52-year-old -Turk[place] male with history of colon cancer, status post right hemicolectomy for cecal colon cancer on 08/29/2022. Patient was discharged uneventfully on Percocet and Motrin for pain control. Patient was readmitted on 09/03/2022, he was mostly admitted with abdominal pain, distention, nausea and vomiting which started a few days prior to his admission. Patient was seen by surgery on consultation, and he was found to have acute pneumoperitoneum. Yesterday, the patient underwent robotic-assisted laparoscopic extensive lysis of adhesions open exploratory laparotomy with right hemicolectomy and primary anastomosis drainage of abdominal abscess abdominal peritoneal lavage, Margarita spent of a SARAI drain in the pelvis and placement of the incisional wound VAC system. I was notified about this patient from Dr. Moeller yesterday, and considering his abdominal sepsis presentation considering his surgical findings considering the patient was not extubated postoperatively, we admitted the patient to the ICU, manage his ventilator overnight, and I'm evaluating the patient today on consultation. Patient had a relatively uneventful night, did not require any pressors, he did receive fluids and he seems to be hemodynamically stable, remains on mechanical ventilation. His ventilator settings at this point are assist control rate of 18 tidal volume 500 FiO2 40% and PEEP of 5 recent ABG showed a pO2 of 79 pCO2 39 pH of 7.42 patient is on vancomycin and Zosyn for his abdominal sepsis he is on propofol at 65 mcg/kg/m he has good urine output roughly 30-50 mL per hour. Patient has a nasogastric tube applied to suction and he has a wound VAC. He also has a SARAI drain noted. Patient is sedated and calm, however I would recommend a trial of sedation interruption and possibly weaning parameters, if tolerated may consider further weaning and extubation today. Labs today showed relatively normal CBC WBC count is 8.6 hemoglobin is 10.4. Elect lites are normal BUN is 23 creatinine 1.36. Reevaluated today on 09/06/2022, patient remains in the ICU, patient was extub ated yesterday and he tolerated extubation well over the last 24 hours. He is on 2 L nasal cannula, not in any distress. Continues to have significant nasogastric output. Patient is to be started on TPN today. Doing better than expected overall. Remains on antibiotics for his abdominal sepsis. White count is 11.8 today hemoglobin is 9.6. Elect lites are normal renal profile is normal with a creatinine of 1.14, improving since admission from 2.14 on admission. Patient is compliant with his incentive spirometry and doing a good job with I- S. Reevaluated today on 09/07/2022, patient remains in the ICU, he feels generally weak, denies any shortness of breath, no cough, no wheezing. Continues to have nasogastric tube in place, and he had 1 50 mL of output overnight. Patient on TPN for nutritional support. His sodium was noted to be elevated today, and I recommended switching his IV fluid to D5W at 100 mL per hour. His labs otherwise are unremarkable. Patient is doing well with incentive spirometry, pain is fairly well controlled. Renal profile is normal, WBC count is 11.8 h emoglobin is 9.6 The patient is seen today 09/08/2022 in follow-up in the intensive care unit. He is currently resting comfortably in bed. Awake and alert in no acute distress. He is maintaining good O2 saturations in the mid 90s on room air. He is febrile with a temp of 101.9. Tachycardic. Hypertensive. Blood cultures pending. Abdominal x-ray revealed persistent markedly dilated small bowel loops. Peritoneal fluid cultures were positive for E. coli, Pseudomonas aeruginosa, enterococcus faecium. He remains nothing by mouth. He is continued on TPN and lipids. Antibiotics in the form of Zosyn and now daptomycin. Remains on heparin for DVT prophylaxis. He is up ambulating with assistance. The patient is seen today 09/09/2022 in follow-up in the intensive care unit. He is currently resting comfortably in bed. Awake and alert in no acute distress. White count 19.7. Hemoglobin 9.4. Platelets 245. Sodium 141. Potassium 3.9. Bicarb 24. BUN 14. Creatinine 0.78. Glucose 139. He is maintaining good O2 saturations in the mid 90s on room air. Continues with a low-grade fever currently at 100.8. Tachycardic. He is continued on TPN 108 ML's per hour. He has D5W it 100 ML's per hour. 0.9 normal setting at KVO. He is on antibiotics in the form of Zosyn and daptomycin. He is working well with the incentive spirometer. Remains on strict nothing by mouth per surgical services. The patient is seen today 09/10/2022 in follow-up in the intensive care unit. He is currently resting fairly comfortably in bed. Awake and alert in no acute distress. Chest x-ray shows improving bilateral infiltrate and small effusion. He continues to maintain good O2 saturations in the 90s on room air. Some abdominal distention and discomfort. Follow-up computed tomography scan pending. Still have an elevated temperatures up to 102.4 last night. White count 18.3. Hemoglobin 8.8. Sodium 139. Potassium 4.0. Bicarb 24. BUN 14. Creatinine 0.83. He remains on daptomycin and Zosyn. Being nourished with TPN at 108 ML's per hour. Heparin for DVT prophylaxis. The patient is seen today 09/11/2022 in follow-up in the intensive care unit. He is currently resting in bed. Awake and alert in no acute distress. Maintaining good O2 saturations in the 90s on room air. His initial peritoneal fluid cultures were positive for E. coli, pseudomonas aeruginosa, enterococcus faecium. Follow-up blood cultures are pending. He did have issues with abdominal distention. Follow-up computed tomography scan revealed loculated and non-loculated. Hepatic collections some of which demonstrate mildly thickened almeida with internal foci of air.. Hepatic abscesses are not excluded. Persistent dilatation of the small bowel small bowel wall thickening and inflammatory change in the interval colonic anastomotic site. Persistent postoperative ileus and/or obstructive change is not excluded. Adjacent drains in place. Leak is difficult to exclude. Small amount of free air persistent but improved. Chest x-ray reveals stable bilateral lower lobe infiltrate and small effusion. Left-sided PICC line remains in place. White count 16.0. Hemoglobin 9.1. Platelets 270. Sodium 136. Potassium 4.3. Bicarb 24. BUN 15. Creatinine 0.90. Glucose 124. He is continued on daptomycin and Zosyn. Continues to work with the incentive spirometer. Heparin for DVT prophylaxis. Being nourished with TPN at 108 ML's per hour. The patient is seen today 09/12/2022 in follow-up in the intensive care unit. He is currently resting comfortably in bed. Awake and alert in no acute distress. Maintaining O2 saturations in the 90s on room air. Working well with the incentive spirometer. He did undergo a a CT-guided abscess drainage of the liver yesterday with 100 purulent fluid removed. He also had several fransisca removed from his abdominal wound that drained fluid as well. Cultures are pending. A venous. [place] fluid cultures were positive for E. coli, pseudomonas aeruginosa, enterococcus faecium. White count 12.8. He will been 8.8. Platelets 302. Sodium 135. Potassium 4.8. Bicarb 24. BUN 15. Creatinine 0.79. Glucose 149. He remains on TPN at 180 MLS per hour. Continued on Zosyn and daptomycin. Objective - Vital Signs Vital signs: Vital Signs Temp 99.5 F 09/12/22 08:00 Pulse 110 H 09/12/22 09:00 Resp 25 H 09/12/22 09:00 BP 139/83 09/12/22 08:00 Pulse Ox 95 09/12/22 09:00 FiO2 40 09/05/22 12:00 Intake & Output 09/11/22 09/12/22 09/12/22 18:59 06:59 18:59 Intake Total 1546 2331.5 640 Output Total 1775 2375 0 Balance -229 -43.5 640 Weight 107.1 kg Intake: IV 1496 1296 424 Mvi, Adult No.4 with Vit 1296 1296 324 K 10 ml Trace (Conc-1Ml/ Dose) 1 ml Sodium Acetate 10 meq Potassium Acetate 20 meq Calcium Gluconate 1 gm Potassium Phosphate 15 mmol Magnesium Sulfate gm 0.25 gm In Amino Acids 5 %/Dextrose 20 % 1,000 ml @ 108 mls/ hr IV .BY DURATION [facility] Rx #:[id number] Piperacillin-Tazobactam 3 200 100 .375 gm In Sodium Chloride 0.9% 100 ml @ 25 mls/hr IVPB Q8HR [facility] Rx# :[id number] Intake, IV Titration 50 1035.5 216 Amount DAPTOmycin 500 mg In 50 Sodium Chloride 0.9% 50 ml @ 100 mls/hr IVPB Q24HR [facility] Rx#:[id number] Mvi, Adult No.4 with Vit 216 K 10 ml Trace (Conc-1Ml/ Dose) 1 ml Sodium Acetate 20 meq Potassium Acetate 20 meq Calcium Gluconate 1 gm Potassium Phosphate 15 mmol Magnesium Sulfate gm 0.4 gm In Amino Acids 5 %/Dextrose 20 % 1,000 ml @ 108 mls/ hr IV .BY DURATION [facility] Rx #:[id number] Sodium Acetate 20 meq 1035.5 Potassium Acetate 20 meq Calcium Gluconate 1 gm Potassium Phosphate 15 mmol Magnesium Sulfate gm 0.25 gm In Amino Acids 5 %/Dextrose 20 % 1,000 ml @ 108 mls/hr IV .BY DURATION [facility] Rx#: [id number] Oral 0 Output: Drainage 175 Left Lower Abdomen 5 Right Upper Abdomen 170 Urine 1600 2375 0 Other: Voiding Method Urinal Urinal Urinal # Voids 1 # Bowel Movements 1 ABP, PAP, CO, CI - Last Documented Arterial Blood Pressure 158/44 - Exam GENERAL EXAM: Alert, oriented, pleasant 52-year-old male patient, on room air, comfortable in no apparent distress. HEAD: Normocephalic. EYES: Normal reaction of pupils, equal size. NOSE: Nasogastric tube secured in place. Clear with pink turbinates. THROAT: No erythema or exudates. NECK: No masses, no JVD. CHEST: No chest wall deformity. LUNGS: Equal air entry with no crackles, wheeze, rhonchi or dullness. CVS: S1 and S2 normal with no audible murmur, regular rhythm. ABDOMEN: Midline incision with wound VAC intact. SARAI drain in place. Serous purulent drainage. SPINE: No scoliosis or deformity SKIN: No rashes CENTRAL NERVOUS SYSTEM: No focal deficits, tone is normal in all 4 extremities. EXTREMITIES: There is no peripheral edema. No clubbing, no cyanosis. Peripheral pulses are intact. - Labs CBC & Chem 7: 09/12/22 04:18 09/12/22 04:18 Labs: Abnormal Lab Results - Last 24 Hours (Table) 09/11/22 09/11/22 09/11/22 Range/Units 13:21 17:36 23:45 WBC (3.8-10.6) k/uL RBC (4.30-5.90) m/uL Hgb (13.0-17.5) gm/dL Hct (39.0-53.0) % Neutrophils # (1.3-7.7) k/uL Lymphocytes # (1.0-4.8) k/uL Sodium (137-145) mmol/L Glucose (74-99) mg/dL POC Glucose (mg/dL) 142 H 137 H 150 H (70-110) mg/dL Calcium (8.4-10.2) mg/dL 09/12/22 09/12/22 09/12/22 Range/Units 04:18 04:18 06:09 WBC 12.8 H (3.8-10.6) k/uL RBC 3.17 L (4.30-5.90) m/uL Hgb 8.8 L (13.0-17.5) gm/dL Hct 26.8 L (39.0-53.0) % Neutrophils # 10.7 H (1.3-7.7) k/uL Lymphocytes # 0.9 L (1.0-4.8) k/uL Sodium 135 L (137-145) mmol/L Glucose 149 H (74-99) mg/dL POC Glucose (mg/dL) 163 H (70-110) mg/dL Calcium 8.1 L (8.4-10.2) mg/dL Microbiology - Last 24 Hours (Table) 09/08/22 09:24 Blood Culture - Preliminary Blood Assessment and Plan Assessment: Acute pneumoperitoneum, secondary to perforated colonic diverticulum and transverse colon. Status post robotic-assisted laparoscopy with extensive lysis of adhesions, right hemicolectomy and primary anastomosis and drainage of abdominal abscess abdominal peritoneal lavage and placement of SARAI drain as well as incisional wound VAC system. Follow-up computed tomography scan 09/10/2022 revealed loculated and non-loculated perihepatic collections some of which demonstrate mildly thickened almeida with internal foci of air.. Hepatic abscesses are not excluded. Persistent dilatation of the small bowel small bowel wall thickening and inflammatory change in the interval colonic anastomotic site. Persistent postoperative ileus and/or obstructive change is not excluded. Adjacent drains in place. Leak is difficult to exclude. Small amount of free air persistent but improved. He did undergo a CT-guided catheter drainage of the liver abscess on 09/11/2022. Cultures pending. Severe abdominal sepsis secondary to E. coli, pseudomonas aeruginosa, enterococcus faecium. Remains on daptomycin and Zosyn. Febrile illness secondary to above Sinus tachycardia secondary to sepsis History of colon cancer status post resection Acute kidney injury, improved Acute lactic acidosis secondary to sepsis Intra-abdominal abscess Abdominal ascites History of sarcoidosis Plan: The patient was seen and evaluated Labs and medications reviewed Continue Zosyn, daptomycin Continue to work with the incentive spirometer Increase his activity as tolerated Transfer out of the ICU today to the regular medical floor with telemetry We will continue to follow I have personally seen and examined the patient, performed the documentation and the assessment and plan as written. Number of minutes spent on the visit: 10.
[2022-09-12 11:55] LABS: Glucose,Whole Blood 142 mg/dL (70-110)
--- NOTE | 2022-09-12 13:34 | P.PN ---
Subjective Progress Note Date: 09/12/22 This is a 52 year old male monitored in the intensive care unit postoperative day #4 lysis of adhesions and right hemicolectomy due to bowel perforation. Patient had end to end anastamosis. Has not had bowel movement, had KUB xray today showing multiple dilated small bowel loops possible ileus vs. obstruction. General surgery recommending patient to be NPO at this time. Heart rate remains elevated in the 120s and patient switched to IV lopressor. Remains on IV daptomycin and IV zosyn for positive peritoneal fluid culture with E. Coli, enterococcus and pseudomonas. Blood culture negative so far. Patient remains on D5 water at 100 mls/hr, sodium is slightly improved today down to 146. Continues on TPN, NG tube has been discontinued. Accuchecks switched to Q6h and small dose of levemir HS has been added. SARAI drain in place with serous drainage. Patient febrile today up to 101.9, encouraged to continue with incentive spirometer. Patient has wound vac in place to continuous suction, plan to ambulate around the room and up in the chair today. 09/09/2022 Patient is evaluated today in the ICU resting in bed. Alert x 3. Asking about discharge. Repeat blood culture is pending patient remains on IV antibiotics. White count up to 19.7 today. Patient reports BM yesterday and passing some gas today. Abdomen is more distended. Surgery recommending NG tube today. Patient remains NPO. Midline incisional wound vac in place. Patient remains with fever, using incentive spirometer reaching 1200. Continues on TPN. 09/10/2022 Patient remains in the intensive care unit. Patient continues to be NPO. 3 attempts were made to pass NG tube and were unsuccessful. Patient did have 2 BMs yesterday, abdomen remains significantly distended. Repeat abdominal pelvis CT reveals loculated and nonloculated perihepatic collections some of which demonstrate mildly thickened almeida with internal foci of air. Perihepatic abscesses are not excluded. Persistent dilation of small bowel with small bowel wall thickening and inflammatory change at the enterocolonic anastomotic site. Persistent postoperative ileus and/or obstructive changes not excluded. Adjacent drain is in place. Contrast does not opacify the anastomotic site and therefore leak is difficult to evaluate or exclude. Small amt of free air persists improved from prior study. White count 18.3 today, electrolytes are normalized and blood glucose improved to 115. Patient remains on TPN. Blood culture remains negative. Remains on IV zosyn and IV daptomycin. Temp of 100.4 and remains tachycardic 121, blood pressure stable at 131/94. 09/11/2022 Patient is evaluated today in the intensive care unit. Remains tachycardic and T-Max of 100.7 overnight. Scheduled to undergo drainage and placement of drainage tube to the perihepatic abscess noted on CT imaging with IR today. White count down to 16.0 today. Continues on IV daptoymcin and IV vancomycin. Per nursing did have a small BM overnight. 09/12/2022 Patient evaluated today in the intensive care unit. Underwent CT guided abscess drainage with 100 mls of purulent drainage and also had midline fransisca removed at the top of incision with some purulent drainage. Patients white count is down to 12.8 today. Kidney function stable, sodium 135 today. Patient has been cleared to start diet, having small BMs. Metoprolol will be changed to oral. Fever is improving. Cultures are pending from the abscess and ID is following closely. Review of Systems Constitutional: Denied any fatigue denied any fever. Cardio vascular: denied any chest pain, palpitations Gastrointestinal: denied any nausea, vomiting, reports bloating had small BMs. Pulmonary: Denied any shortness of breath cough Neurologic denied any new focal deficits, All inpatient medications were reviewed and appropriate changes in these medications as dictated in the interval history and assessment and plan. PHYSICAL EXAMINATION: GENERAL: The patient is alert and oriented x3, not in any acute distress. Well developed, well nourished. HEENT: Pupils are round and equally reacting to light. EOMI. No scleral icterus. No conjunctival pallor. Normocephalic, atraumatic. No pharyngeal erythema. No thyromegaly. CARDIOVASCULAR: S1 and S2 present. No murmurs, rubs, or gallops. PULMONARY: Chest is clear to auscultation, no wheezing or crackles. ABDOMEN: Soft, tender, distended, hypoactive bowel sounds. No palpable organ omegaly. Post surgical, midline woundvac in place. More distended than yesterday. MUSCULOSKELETAL: No joint swelling or deformity. EXTREMITIES: No cyanosis, clubbing, or pedal edema. NEUROLOGICAL: Gross neurological examination did not reveal any focal deficits. Mild generalized weakness. SKIN: No rashes. Assessment Sepsis secondary to perforated diverticulum postoperative day #8 evacuation of abscess, lysis of adhesions, right hemicolectomy Status post CT guided drainage of abscess on 09/11/22 pending cultures Postoperative ileus Fever and persistent sinus tachycardia Colon cancer s/p resection on 08/29/2022 Acute kidney injury secondary to ATN and sepsis resolved Leukocytosis Hypernatremia resolved Hx hyperlipidemia Sarcoidosis with asthma Nicotine use GI prophylaxis DVT prophylaxis Full Code Plan Continue IV antibiotics, infectious disease following closely Patient continues to be febrile and blood cultures have been repeated and pending negative so far Pending cultures of abscess Continue with TPN, diet has been advanced Continue CBG Q6h hour and novolog s/s q6h. Oral metoprolol has been added IV fluids discontinued Encourage ambulation, increase activity level and incentive spirometer Follow up AM labs. The impression and plan of care has been dictated by Misty Fairchild Nurse Practitioner as directed. Dr. Kai MD I have performed a history and physical examination and medical decision making of this patient, discussed the same with the dictator, and agree with the dictators assessment and plan as written, documented as a scribe. Based on total visit time, I have performed more than 50% of this visit. Objective - Vital Signs Vital signs: Vital Signs Temp 99.5 F 09/12/22 08:00 Pulse 110 H 09/12/22 09:00 Resp 25 H 09/12/22 09:00 BP 139/83 09/12/22 08:00 Pulse Ox 95 09/12/22 09:00 FiO2 40 09/05/22 12:00 Intake & Output 09/11/22 09/12/22 09/12/22 18:59 06:59 18:59 Intake Total 1546 2331.5 640 Output Total 1775 2375 0 Balance -229 -43.5 640 Weight 107.1 kg 107.1 kg Intake: IV 1496 1296 424 Mvi, Adult No.4 with Vit 1296 1296 324 K 10 ml Trace (Conc-1Ml/ Dose) 1 ml Sodium Acetate 10 meq Potassium Acetate 20 meq Calcium Gluconate 1 gm Potassium Phosphate 15 mmol Magnesium Sulfate gm 0.25 gm In Amino Acids 5 %/Dextrose 20 % 1,000 ml @ 108 mls/ hr IV .BY DURATION [facility] Rx #:[id number] Piperacillin-Tazobactam 3 200 100 .375 gm In Sodium Chloride 0.9% 100 ml @ 25 mls/hr IVPB Q8HR [facility] Rx# :[id number] Intake, IV Titration 50 1035.5 216 Amount DAPTOmycin 500 mg In 50 Sodium Chloride 0.9% 50 ml @ 100 mls/hr IVPB Q24HR [facility] Rx#:[id number] Mvi, Adult No.4 with Vit 216 K 10 ml Trace (Conc-1Ml/ Dose) 1 ml Sodium Acetate 20 meq Potassium Acetate 20 meq Calcium Gluconate 1 gm Potassium Phosphate 15 mmol Magnesium Sulfate gm 0.4 gm In Amino Acids 5 %/Dextrose 20 % 1,000 ml @ 108 mls/ hr IV .BY DURATION [facility] Rx #:[id number] Sodium Acetate 20 meq 1035.5 Potassium Acetate 20 meq Calcium Gluconate 1 gm Potassium Phosphate 15 mmol Magnesium Sulfate gm 0.25 gm In Amino Acids 5 %/Dextrose 20 % 1,000 ml @ 108 mls/hr IV .BY DURATION [facility] Rx#: [id number] Oral 0 Output: Drainage 175 Left Lower Abdomen 5 Right Upper Abdomen 170 Urine 1600 2375 0 Other: Voiding Method Urinal Urinal Urinal # Voids 1 # Bowel Movements 1 ABP, PAP, CO, CI - Last Documented Arterial Blood Pressure 158/44 - Labs CBC & Chem 7: 09/12/22 04:18 09/12/22 04:18 Labs: Abnormal Lab Results - Last 24 Hours (Table) 09/11/22 09/11/22 09/11/22 Range/Units 13:21 17:36 23:45 WBC (3.8-10.6) k/uL RBC (4.30-5.90) m/uL Hgb (13.0-17.5) gm/dL Hct (39.0-53.0) % Neutrophils # (1.3-7.7) k/uL Lymphocytes # (1.0-4.8) k/uL Sodium (137-145) mmol/L Glucose (74-99) mg/dL POC Glucose (mg/dL) 142 H 137 H 150 H (70-110) mg/dL Calcium (8.4-10.2) mg/dL 09/12/22 09/12/22 09/12/22 Range/Units 04:18 04:18 06:09 WBC 12.8 H (3.8-10.6) k/uL RBC 3.17 L (4.30-5.90) m/uL Hgb 8.8 L (13.0-17.5) gm/dL Hct 26.8 L (39.0-53.0) % Neutrophils # 10.7 H (1.3-7.7) k/uL Lymphocytes # 0.9 L (1.0-4.8) k/uL Sodium 135 L (137-145) mmol/L Glucose 149 H (74-99) mg/dL POC Glucose (mg/dL) 163 H (70-110) mg/dL Calcium 8.1 L (8.4-10.2) mg/dL 09/12/22 Range/Units 11:54 WBC (3.8-10.6) k/uL RBC (4.30-5.90) m/uL Hgb (13.0-17.5) gm/dL Hct (39.0-53.0) % Neutrophils # (1.3-7.7) k/uL Lymphocytes # (1.0-4.8) k/uL Sodium (137-145) mmol/L Glucose (74-99) mg/dL POC Glucose (mg/dL) 142 H (70-110) mg/dL Calcium (8.4-10.2) mg/dL Microbiology - Last 24 Hours (Table) 09/08/22 09:24 Blood Culture - Preliminary Blood Assessment and Plan Time with Patient: Less than 30
--- NOTE | 2022-09-12 14:52 | P.PN ---
Subjective Progress Note Date: 09/12/22 Principal diagnosis: Intra-abdominal abscess Patient is a 52-year-old male presenting to the hospital with abdominal pain has been diagnosed with an intra-abdominal abscess from perforated diverticulum status post laparotomy and drainage of the abscess. Patient is status post IR drainage of perihepatic abscess completed on 09/11/2022 n today's evaluation that is 09/12/2022, the patient fever pattern has improved and did have a low-grade fever of 99F this morning, the patient is breathing comfortably on room air , the patient denies any chest pain or shortness of breath or cough, the patient abdominal pain is currently controlled the patient denies nausea no vomiting, mention he did have a bowel movement Objective - Vital Signs Vital signs: Vital Signs Temp 99.5 F 09/12/22 08:00 Pulse 110 H 09/12/22 09:00 Resp 25 H 09/12/22 09:00 BP 139/83 09/12/22 08:00 Pulse Ox 95 09/12/22 09:00 FiO2 40 09/05/22 12:00 Intake & Output 09/11/22 09/12/22 09/12/22 18:59 06:59 18:59 Intake Total 1546 2331.5 640 Output Total 1775 2375 0 Balance -229 -43.5 640 Weight 107.1 kg 107.1 kg Intake: IV 1496 1296 424 Mvi, Adult No.4 with Vit 1296 1296 324 K 10 ml Trace (Conc-1Ml/ Dose) 1 ml Sodium Acetate 10 meq Potassium Acetate 20 meq Calcium Gluconate 1 gm Potassium Phosphate 15 mmol Magnesium Sulfate gm 0.25 gm In Amino Acids 5 %/Dextrose 20 % 1,000 ml @ 108 mls/ hr IV .BY DURATION [facility] Rx #:[id number] Piperacillin-Tazobactam 3 200 100 .375 gm In Sodium Chloride 0.9% 100 ml @ 25 mls/hr IVPB Q8HR [facility] Rx# :[id number] Intake, IV Titration 50 1035.5 216 Amount DAPTOmycin 500 mg In 50 Sodium Chloride 0.9% 50 ml @ 100 mls/hr IVPB Q24HR [facility] Rx#:[id number] Mvi, Adult No.4 with Vit 216 K 10 ml Trace (Conc-1Ml/ Dose) 1 ml Sodium Acetate 20 meq Potassium Acetate 20 meq Calcium Gluconate 1 gm Potassium Phosphate 15 mmol Magnesium Sulfate gm 0.4 gm In Amino Acids 5 %/Dextrose 20 % 1,000 ml @ 108 mls/ hr IV .BY DURATION [facility] Rx #:[id number] Sodium Acetate 20 meq 1035.5 Potassium Acetate 20 meq Calcium Gluconate 1 gm Potassium Phosphate 15 mmol Magnesium Sulfate gm 0.25 gm In Amino Acids 5 %/Dextrose 20 % 1,000 ml @ 108 mls/hr IV .BY DURATION [facility] Rx#: [id number] Oral 0 Output: Drainage 175 Left Lower Abdomen 5 Right Upper Abdomen 170 Urine 1600 2375 0 Other: Voiding Method Urinal Urinal Urinal # Voids 1 # Bowel Movements 1 ABP, PAP, CO, CI - Last Documented Arterial Blood Pressure 158/44 - Exam GENERAL DESCRIPTION: A middle-age male lying in bed in no distress RESPIRATORY SYSTEM: Unlabored breathing , decreased breath sounds at bases HEART: S1 S2 regular rate and rhythm , ABDOMEN: Soft , mild distention and tenderness EXTREMITIES: No edema feet - Labs CBC & Chem 7: 09/12/22 04:18 09/12/22 04:18 Labs: Abnormal Lab Results - Last 24 Hours (Table) 09/11/22 09/11/22 09/11/22 Range/Units 13:21 17:36 23:45 WBC (3.8-10.6) k/uL RBC (4.30-5.90) m/uL Hgb (13.0-17.5) gm/dL Hct (39.0-53.0) % Neutrophils # (1.3-7.7) k/uL Lymphocytes # (1.0-4.8) k/uL Sodium (137-145) mmol/L Glucose (74-99) mg/dL POC Glucose (mg/dL) 142 H 137 H 150 H (70-110) mg/dL Calcium (8.4-10.2) mg/dL 09/12/22 09/12/22 09/12/22 Range/Units 04:18 04:18 06:09 WBC 12.8 H (3.8-10.6) k/uL RBC 3.17 L (4.30-5.90) m/uL Hgb 8.8 L (13.0-17.5) gm/dL Hct 26.8 L (39.0-53.0) % Neutrophils # 10.7 H (1.3-7.7) k/uL Lymphocytes # 0.9 L (1.0-4.8) k/uL Sodium 135 L (137-145) mmol/L Glucose 149 H (74-99) mg/dL POC Glucose (mg/dL) 163 H (70-110) mg/dL Calcium 8.1 L (8.4-10.2) mg/dL Microbiology - Last 24 Hours (Table) 09/08/22 09:24 Blood Culture - Preliminary Blood Assessment and Plan (1) Intra-abdominal abscess Current Visit: Yes Status: Acute Code(s): K65.1 - PERITONEAL ABSCESS SNOMED Code(s): 10966782 Plan: 1patient with sepsis in this patient who did have a fever tachycardia elevated white count source is intra-abdominal in this patient with evidence of colonic diverticular perforation intra-abdominal abscess status post laparotomy drainage of the abscess and primary anastomosis , cultures growing E. coli Pseudomonas and Enterococcus faecium with sensitivities pending. 2patient with fever and elevated white count concerning for perihepatic abscess, the patient is status post CT-guided drainage culture has been obtained which are currently pending 3-patient white count is trending down on the 12,000 today 4-patient to continue with the Zosyn and daptomycin while waiting for the cultures to be finalized, case management is working on outpatient antibiotic for discharge Time with Patient: Less than 30
[2022-09-12 16:49] LABS: Glucose,Whole Blood 154 mg/dL (70-110)
[2022-09-12] MEDS: HYDROmorphone 0.5 MG/0.5 ML SYRINGE IVP PRN (20:20)
[2022-09-12] MEDS ORDERED: METOPROLOL TARTRATE 50 MG TAB PO SCH (21:00)
[2022-09-12 23:53] LABS: Glucose,Whole Blood 140 mg/dL (70-110)
[2022-09-13] MEDS: METOCLOPRAMIDE 5 MG/ML 2 ML VIAL IVP SCH ×4 (04:12→22:04)
[2022-09-13] MEDS: HYDROmorphone 0.5 MG/0.5 ML SYRINGE IVP PRN ×3 (04:13→08:23)
[2022-09-13 04:46] LABS: African American GFR (CKD) >90 (>60 ml/min/1.73 sqM); Anion Gap 11 mmol/L; Blood Urea Nitrogen 16 mg/dL (9-20); Calcium 8.7 mg/dL (8.4-10.2); Carbon Dioxide 21 mmol/L (22-30); Chloride 102 mmol/L (98-107); Glucose 136 mg/dL (74-99); Magnesium 1.9 mg/dL (1.6-2.3); Non-African American GFR(CKD) 87 (>60 ml/min/1.73 sqM); Phosphorus 3.8 mg/dL (2.5-4.5); Sodium 134 mmol/L (137-145)
[2022-09-13] MEDS: INSULIN ASPART (NovoLOG) 100 UNIT/ML VIAL SQ SCH ×4 (06:46→19:18)
[2022-09-13] MEDS: INSULIN DETEMIR (LEVEMIR) 100 UNIT/ML SYR SQ SCH ×3 (07:12→22:09)
[2022-09-13] MEDS: PIPERACILLIN-TAZOBACTAM 3.375 GM in SODIUM CHLORIDE 0.9% 100 ML IVPB SCH ×2 (08:25→20:31)
--- NOTE | 2022-09-13 08:40 | P.PN ---
Subjective Progress Note Date: 09/13/22 Principal diagnosis: Abdominal discomfort This is a 52-year-old -[place] gentleman was admitted to the hospital with abdominal discomfort and initially underwent exploratory laparotomy and hemicolectomy on August 29 and currently his post exploratory laparotomy because of possible sepsis point we consulted the patient initiated for sinus tachycardia. An echo was performed and showed normal biventricular dimension and systolic function. Currently he is nothing by mouth. On examination he is not in any pain or any distress. He does have sinus tachycardia Assessment Abdominal discomfort Status post hemicolectomy The patient is in process of having exploratory laparotomy Sinus tachycardia likely to be multi-factorial Plan DC oral beta igor. In the light of the patient being nothing by mouth Start the patient on IV metoprolol Follow-up with the patient Objective - Vital Signs Vital signs: Vital Signs Temp 99.6 F 09/13/22 00:00 Pulse 128 H 09/13/22 00:00 Resp 17 09/13/22 00:00 BP 139/77 09/13/22 00:00 Pulse Ox 94 L 09/13/22 00:00 FiO2 40 09/05/22 12:00 Intake & Output 09/12/22 09/13/22 09/13/22 18:59 06:59 18:59 Intake Total 4437.5 1396 Output Total 1560 2200 400 Balance 2877.5 -804 -400 Weight 107.1 kg Intake: IV 1564 100 Mvi, Adult No.4 with Vit 1364 K 10 ml Trace (Conc-1Ml/ Dose) 1 ml Sodium Acetate 10 meq Potassium Acetate 20 meq Calcium Gluconate 1 gm Potassium Phosphate 15 mmol Magnesium Sulfate gm 0.25 gm In Amino Acids 5 %/Dextrose 20 % 1,000 ml @ 108 mls/ hr IV .BY DURATION [facility] Rx #:[id number] Piperacillin-Tazobactam 3 200 100 .375 gm In Sodium Chloride 0.9% 100 ml @ 25 mls/hr IVPB Q8HR [facility] Rx# :[id number] Intake, IV Titration 2323.5 1296 Amount DAPTOmycin 500 mg In 100 Sodium Chloride 0.9% 50 ml @ 100 mls/hr IVPB Q24HR [facility] Rx#:[id number] Mvi, Adult No.4 with Vit 1188 1296 K 10 ml Trace (Conc-1Ml/ Dose) 1 ml Sodium Acetate 20 meq Potassium Acetate 20 meq Calcium Gluconate 1 gm Potassium Phosphate 15 mmol Magnesium Sulfate gm 0.4 gm In Amino Acids 5 %/Dextrose 20 % 1,000 ml @ 108 mls/ hr IV .BY DURATION [facility] Rx #:[id number] Sodium Acetate 20 meq 1035.5 Potassium Acetate 20 meq Calcium Gluconate 1 gm Potassium Phosphate 15 mmol Magnesium Sulfate gm 0.25 gm In Amino Acids 5 %/Dextrose 20 % 1,000 ml @ 108 mls/hr IV .BY DURATION [facility] Rx#: [id number] Oral 550 Output: Drainage 60 Right Upper Abdomen 60 Urine 1500 2200 400 Other: Voiding Method Urinal Urinal # Voids 3 # Bowel Movements 1 ABP, PAP, CO, CI - Last Documented Arterial Blood Pressure 158/44 - Labs CBC & Chem 7: 09/12/22 04:18 09/13/22 04:18 Labs: Abnormal Lab Results - Last 24 Hours (Table) 09/12/22 09/12/22 09/12/22 Range/Units 11:54 16:47 23:51 Sodium (137-145) mmol/L Carbon Dioxide (22-30) mmol/L Glucose (74-99) mg/dL POC Glucose (mg/dL) 142 H 154 H 140 H (70-110) mg/dL 09/13/22 Range/Units 04:18 Sodium 134 L (137-145) mmol/L Carbon Dioxide 21 L (22-30) mmol/L Glucose 136 H (74-99) mg/dL POC Glucose (mg/dL) (70-110) mg/dL Microbiology - Last 24 Hours (Table) 09/11/22 13:00 Gram Stain - Preliminary Aspirate Body Fluid Culture - Preliminary Gram Neg Bacilli 09/11/22 19:00 Wound Culture - Preliminary Abdomen Gram Neg Bacilli
[2022-09-13 08:47] LABS: HCT 28.1 % (39.0-53.0); MCH 27.4 pg (25.0-35.0); MCHC 32.2 g/dL (31.0-37.0); MCV 85.2 fL (80.0-100.0); Mean Platelet Volume 10.5; Platelet Count 458 k/uL (150-450); RDW 14.7 % (11.5-15.5); WBC 17.9 k/uL (3.8-10.6)
--- NOTE | 2022-09-13 09:09 | P.PN ---
Progress Note - Text Progress Note Date: 09/13/22 Unfortunately this morning the patient had a coughing episode. Following that was noted to have a small area of dehiscence in the supraumbilical location. From that area there has been significant drainage that appears consistent with bowel contents. On exam the patient also has air seen from the abdominal cavity coming through the staple line. Discussed case with Dr. Moeller. She states she will be in to evaluate and take to surgery.
[2022-09-13] MEDS: SIMETHICONE 80 MG CHEWABLE PO SCH ×4 (09:11→23:29)
--- NOTE | 2022-09-13 09:59 | P.PN ---
Subjective Progress Note Date: 09/13/22 CHIEF COMPLAINT: Pneumoperitoneum, abdominal pain HISTORY OF PRESENT ILLNESS: The patient is a 52-year-old male status post right hemicolectomy for colon cancer 08/29/2022. He was discharged from the hospital without sequelae 08/31/2022 and returned to the hospital 09/03/2022 for pneumoperitoneum. He is status post exploratory laparotomy, lysis of adhesions, evacuation of intra-abdominal abscess, right hemicolectomy for resection of perforated transverse colon diverticulum, 09/04/2022. He was being transitioned for discharge home as he was tolerating diet, passing flatus, having bowel movements. Fevers have improved. Today, patient reports doing shift change, 3 hours ago developing acute right upper quadrant pain after a cough with a "pop". Immediately, moderate sanguinopurulent drainage emanating from midline incision which was previously opened at bedside. He reports drainage along his bed and now has new lower abdominal pain. He has CT-guided drainage for perihepatic abscess with purulent drainage. I was notified by covering surgeon regarding acute clinical change. ROS: No new chest pain. Denies blood in stools. T-max 99.6F PHYSICAL EXAM: VITAL SIGNS: Reviewed CONSTITUTIONAL: Well developed and in no acute distress. EYES: Conjuctivae without sclera icterus. Extraocular movements grossly intact. HEAD, EARS, NOSE, THROAT: Moist buccal mucosa. Head is atraumatic, normocephalic. Hears conversational speech. RESPIRATORY:abored breathing CARDIOVASCULAR: Palpable 2+ radial pulses. Tachycardic. ABDOMEN: Ostomy appliance with sanguinopurulent drainage. When patient coughs, moderate air emanating from incision, which is new MUSCULOSKELETAL: No gross deformity of the lower extremities noted. No clubbing. No cyanosis. SKIN: Good skin turgor. Well perfused. NEUROLOGIC: Cranial nerves II through XII grossly intact. No focal or lateralizing signs. PSYCH: Appropriate affect. Alert and oriented to person, place and time. CLINICAL LABS: Reviewed. WBC 12.8 now up to 17.9. MICRO: Multiple organisms including Enterococcus, pseudomonas, Enterobacter of peritoneal fluid. 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 Pneumoperitoneum due to perforated diverticulum 2. Tachycardia with fevers consistent with sepsis 3. Acute kidney injury, failure due to severe sepsis 4. Colon cancer status post resection 5. Liver abscess, para hepatic 6. Incisional wound abscess PLAN: 1. Family is at bedside including mother and . Emergent return to the operating room for exploratory laparotomy with ostomy described. 2. Continue ICU care. 3. Nothing by mouth Objective - Vital Signs Vital signs: Vital Signs Temp 99.6 F 09/13/22 00:00 Pulse 128 H 09/13/22 00:00 Resp 17 09/13/22 00:00 BP 139/77 09/13/22 00:00 Pulse Ox 97 09/13/22 08:38 FiO2 40 09/05/22 12:00 Intake & Output 09/12/22 09/13/22 09/13/22 18:59 06:59 18:59 Intake Total 4437.5 1396 Output Total 1560 2200 400 Balance 2877.5 -804 -400 Weight 107.1 kg Intake: IV 1564 100 Mvi, Adult No.4 with Vit 1364 K 10 ml Trace (Conc-1Ml/ Dose) 1 ml Sodium Acetate 10 meq Potassium Acetate 20 meq Calcium Gluconate 1 gm Potassium Phosphate 15 mmol Magnesium Sulfate gm 0.25 gm In Amino Acids 5 %/Dextrose 20 % 1,000 ml @ 108 mls/ hr IV .BY DURATION [facility] Rx #:[id number] Piperacillin-Tazobactam 3 200 100 .375 gm In Sodium Chloride 0.9% 100 ml @ 25 mls/hr IVPB Q8HR [facility] Rx# :[id number] Intake, IV Titration 2323.5 1296 Amount DAPTOmycin 500 mg In 100 Sodium Chloride 0.9% 50 ml @ 100 mls/hr IVPB Q24HR [facility] Rx#:[id number] Mvi, Adult No.4 with Vit 1188 1296 K 10 ml Trace (Conc-1Ml/ Dose) 1 ml Sodium Acetate 20 meq Potassium Acetate 20 meq Calcium Gluconate 1 gm Potassium Phosphate 15 mmol Magnesium Sulfate gm 0.4 gm In Amino Acids 5 %/Dextrose 20 % 1,000 ml @ 108 mls/ hr IV .BY DURATION [facility] Rx #:[id number] Sodium Acetate 20 meq 1035.5 Potassium Acetate 20 meq Calcium Gluconate 1 gm Potassium Phosphate 15 mmol Magnesium Sulfate gm 0.25 gm In Amino Acids 5 %/Dextrose 20 % 1,000 ml @ 108 mls/hr IV .BY DURATION [facility] Rx#: [id number] Oral 550 Output: Drainage 60 Right Upper Abdomen 60 Urine 1500 2200 400 Other: Voiding Method Urinal Urinal # Voids 3 # Bowel Movements 1 ABP, PAP, CO, CI - Last Documented Arterial Blood Pressure 158/44 - Labs CBC & Chem 7: 09/13/22 04:18 09/13/22 04:18 Labs: Abnormal Lab Results - Last 24 Hours (Table) 09/12/22 09/12/22 09/12/22 Range/Units 11:54 16:47 23:51 WBC (3.8-10.6) k/uL RBC (4.30-5.90) m/uL Hgb (13.0-17.5) gm/dL Hct (39.0-53.0) % Plt Count (150-450) k/uL Sodium (137-145) mmol/L Carbon Dioxide (22-30) mmol/L Glucose (74-99) mg/dL POC Glucose (mg/dL) 142 H 154 H 140 H (70-110) mg/dL 09/13/22 09/13/22 Range/Units 04:18 04:18 WBC 17.9 H (3.8-10.6) k/uL RBC 3.30 L (4.30-5.90) m/uL Hgb 9.0 L (13.0-17.5) gm/dL Hct 28.1 L (39.0-53.0) % Plt Count 458 H (150-450) k/uL Sodium 134 L (137-145) mmol/L Carbon Dioxide 21 L (22-30) mmol/L Glucose 136 H (74-99) mg/dL POC Glucose (mg/dL) (70-110) mg/dL Microbiology - Last 24 Hours (Table) 09/11/22 13:00 Gram Stain - Preliminary Aspirate Body Fluid Culture - Preliminary Gram Neg Bacilli 09/11/22 19:00 Wound Culture - Preliminary Abdomen Gram Neg Bacilli
[2022-09-13] MEDS ORDERED: METOPROLOL TARTRATE 5 MG/5 ML VIAL IVP ONE (10:02)
[2022-09-13] MEDS ORDERED: MIDAZOLAM 2 MG/2 ML VIAL ONE (10:02)
[2022-09-13] MEDS ORDERED: ESMOLOL 100 MG/10 ML VIAL ONE (10:02)
[2022-09-13] MEDS ORDERED: GLYCOPYRROLATE 0.2 MG/ML 2 ML VIAL ONE (10:02)
[2022-09-13] MEDS ORDERED: HEPARIN SODIUM,PORCINE 5,000 UNIT/ML 1 ML VIAL ONE (10:02)
[2022-09-13] MEDS ORDERED: LIDOCAINE 2% INJ 20 MG/ML (2 ML VIAL) ONE (10:02)
[2022-09-13] MEDS ORDERED: fentaNYL (PF) 50 MCG/ML 2 ML AMP ONE (10:02)
[2022-09-13] MEDS ORDERED: ONDANSETRON 4 MG/2 ML VIAL ONE (10:02)
[2022-09-13] MEDS ORDERED: SUCCINYLCHOLINE CHLORIDE 200 MG/10 ML VIAL IV ONE (10:02)
[2022-09-13] MEDS ORDERED: PHENYLEPHRINE-0.9% NACL SYG 1,000 MCG/10 ML SYRINGE ONE (10:02)
[2022-09-13] MEDS ORDERED: HYDROmorphone (PF) 1 MG/ML ONE (10:02)
[2022-09-13] MEDS ORDERED: NEOSTIGMINE 1 MG/ML 10 ML VIAL ONE (10:02)
[2022-09-13] MEDS ORDERED: PROPOFOL 10 MG/ML 20 ML VIAL IV ONE (10:02)
[2022-09-13] MEDS ORDERED: ROCURONIUM 10 MG/ML (5 ML VIAL) IV ONE (10:02)
[2022-09-13] MEDS ORDERED: SODIUM CHLORIDE 0.9% 500 ML 500 ML IV ONE (10:07)
--- NOTE | 2022-09-13 10:47 | P.PN ---
Subjective Progress Note Date: 09/13/22 This is a 52-year-old -Turk[place] male with history of colon cancer, status post right hemicolectomy for cecal colon cancer on 08/29/2022. Patient was discharged uneventfully on Percocet and Motrin for pain control. Patient was readmitted on 09/03/2022, he was mostly admitted with abdominal pain, distention, nausea and vomiting which started a few days prior to his admission. Patient was seen by surgery on consultation, and he was found to have acute pneumoperitoneum. Yesterday, the patient underwent robotic-assisted laparoscopic extensive lysis of adhesions open exploratory laparotomy with right hemicolectomy and primary anastomosis drainage of abdominal abscess abdominal peritoneal lavage, Margarita spent of a SARAI drain in the pelvis and placement of the incisional wound VAC system. I was notified about this patient from Dr. Moeller yesterday, and considering his abdominal sepsis presentation considering his surgical findings considering the patient was not extubated postoperatively, we admitted the patient to the ICU, manage his ventilator overnight, and I'm evaluating the patient today on consultation. Patient had a relatively uneventful night, did not require any pressors, he did receive fluids and he seems to be hemodynamically stable, remains on mechanical ventilation. His ventilator settings at this point are assist control rate of 18 tidal volume 500 FiO2 40% and PEEP of 5 recent ABG showed a pO2 of 79 pCO2 39 pH of 7.42 patient is on vancomycin and Zosyn for his abdominal sepsis he is on propofol at 65 mcg/kg/m he has good urine output roughly 30-50 mL per hour. Patient has a nasogastric tube applied to suction and he has a wound VAC. He also has a SARAI drain noted. Patient is sedated and calm, however I would recommend a trial of sedation interruption and possibly weaning parameters, if tolerated may consider further weaning and extubation today. Labs today showed relatively normal CBC WBC count is 8.6 hemoglobin is 10.4. Elect lites are normal BUN is 23 creatinine 1.36. Reevaluated today on 09/06/2022, patient remains in the ICU, patient was extub ated yesterday and he tolerated extubation well over the last 24 hours. He is on 2 L nasal cannula, not in any distress. Continues to have significant nasogastric output. Patient is to be started on TPN today. Doing better than expected overall. Remains on antibiotics for his abdominal sepsis. White count is 11.8 today hemoglobin is 9.6. Elect lites are normal renal profile is normal with a creatinine of 1.14, improving since admission from 2.14 on admission. Patient is compliant with his incentive spirometry and doing a good job with I- S. Reevaluated today on 09/07/2022, patient remains in the ICU, he feels generally weak, denies any shortness of breath, no cough, no wheezing. Continues to have nasogastric tube in place, and he had 1 50 mL of output overnight. Patient on TPN for nutritional support. His sodium was noted to be elevated today, and I recommended switching his IV fluid to D5W at 100 mL per hour. His labs otherwise are unremarkable. Patient is doing well with incentive spirometry, pain is fairly well controlled. Renal profile is normal, WBC count is 11.8 h emoglobin is 9.6 The patient is seen today 09/08/2022 in follow-up in the intensive care unit. He is currently resting comfortably in bed. Awake and alert in no acute distress. He is maintaining good O2 saturations in the mid 90s on room air. He is febrile with a temp of 101.9. Tachycardic. Hypertensive. Blood cultures pending. Abdominal x-ray revealed persistent markedly dilated small bowel loops. Peritoneal fluid cultures were positive for E. coli, Pseudomonas aeruginosa, enterococcus faecium. He remains nothing by mouth. He is continued on TPN and lipids. Antibiotics in the form of Zosyn and now daptomycin. Remains on heparin for DVT prophylaxis. He is up ambulating with assistance. The patient is seen today 09/09/2022 in follow-up in the intensive care unit. He is currently resting comfortably in bed. Awake and alert in no acute distress. White count 19.7. Hemoglobin 9.4. Platelets 245. Sodium 141. Potassium 3.9. Bicarb 24. BUN 14. Creatinine 0.78. Glucose 139. He is maintaining good O2 saturations in the mid 90s on room air. Continues with a low-grade fever currently at 100.8. Tachycardic. He is continued on TPN 108 ML's per hour. He has D5W it 100 ML's per hour. 0.9 normal setting at KVO. He is on antibiotics in the form of Zosyn and daptomycin. He is working well with the incentive spirometer. Remains on strict nothing by mouth per surgical services. The patient is seen today 09/10/2022 in follow-up in the intensive care unit. He is currently resting fairly comfortably in bed. Awake and alert in no acute distress. Chest x-ray shows improving bilateral infiltrate and small effusion. He continues to maintain good O2 saturations in the 90s on room air. Some abdominal distention and discomfort. Follow-up computed tomography scan pending. Still have an elevated temperatures up to 102.4 last night. White count 18.3. Hemoglobin 8.8. Sodium 139. Potassium 4.0. Bicarb 24. BUN 14. Creatinine 0.83. He remains on daptomycin and Zosyn. Being nourished with TPN at 108 ML's per hour. Heparin for DVT prophylaxis. The patient is seen today 09/11/2022 in follow-up in the intensive care unit. He is currently resting in bed. Awake and alert in no acute distress. Maintaining good O2 saturations in the 90s on room air. His initial peritoneal fluid cultures were positive for E. coli, pseudomonas aeruginosa, enterococcus faecium. Follow-up blood cultures are pending. He did have issues with abdominal distention. Follow-up computed tomography scan revealed loculated and non-loculated. Hepatic collections some of which demonstrate mildly thickened almeida with internal foci of air.. Hepatic abscesses are not excluded. Persistent dilatation of the small bowel small bowel wall thickening and inflammatory change in the interval colonic anastomotic site. Persistent postoperative ileus and/or obstructive change is not excluded. Adjacent drains in place. Leak is difficult to exclude. Small amount of free air persistent but improved. Chest x-ray reveals stable bilateral lower lobe infiltrate and small effusion. Left-sided PICC line remains in place. White count 16.0. Hemoglobin 9.1. Platelets 270. Sodium 136. Potassium 4.3. Bicarb 24. BUN 15. Creatinine 0.90. Glucose 124. He is continued on daptomycin and Zosyn. Continues to work with the incentive spirometer. Heparin for DVT prophylaxis. Being nourished with TPN at 108 ML's per hour. The patient is seen today 09/12/2022 in follow-up in the intensive care unit. He is currently resting comfortably in bed. Awake and alert in no acute distress. Maintaining O2 saturations in the 90s on room air. Working well with the incentive spirometer. He did undergo a a CT-guided abscess drainage of the liver yesterday with 100 purulent fluid removed. He also had several fransisca removed from his abdominal wound that drained fluid as well. Cultures are pending. A venous. Alissa fluid cultures were positive for E. coli, pseudomonas aeruginosa, enterococcus faecium. White count 12.8. He will been 8.8. Platelets 302. Sodium 135. Potassium 4.8. Bicarb 24. BUN 15. Creatinine 0.79. Glucose 149. He remains on TPN at 180 MLS per hour. Continued on Zosyn and daptomycin. The patient is seen today 09/13/2022 in follow-up in the intensive care unit. He remains awake and alert. Maintaining O2 saturations in the 90s on room air. Slightly febrile at 99.6. He is tachycardic. He has been having issues now with stool and air oozing from his abdominal surgical site. Apparently he had a coughing episode and had some dehiscence in the supraumbilical location. There is also air seen from the abdominal cavity coming to the staple line. Surgical services are following and plans for return to the OR this morning. His body fluid cultures had previously been positive for E. coli, pseudomonas aeruginosa, enterococcus facing him. Wound culture still positive with gram-negative bacilli. He's been continued on daptomycin and Zosyn. White count 17.9. Hemoglobin 9.0. Platelets 458. Sodium 134. Potassium 5.0. Bicarb 21. BUN 16. Creatinine 0.01. Glucose 136. He remains on TPN at 108 ML's per hour. Lipids on Wednesdays and Saturdays. Heparin for DVT prophylaxis. Dilaudid for pain control. Objective - Vital Signs Vital signs: Vital Signs Temp 99.6 F 09/13/22 00:00 Pulse 128 H 09/13/22 00:00 Resp 17 09/13/22 00:00 BP 139/77 09/13/22 00:00 Pulse Ox 97 09/13/22 08:38 FiO2 40 09/05/22 12:00 Intake & Output 09/12/22 09/13/22 09/13/22 18:59 06:59 18:59 Intake Total 4437.5 1396 Output Total 1560 2200 400 Balance 2877.5 -804 -400 Weight 107.1 kg Intake: IV 1564 100 Mvi, Adult No.4 with Vit 1364 K 10 ml Trace (Conc-1Ml/ Dose) 1 ml Sodium Acetate 10 meq Potassium Acetate 20 meq Calcium Gluconate 1 gm Potassium Phosphate 15 mmol Magnesium Sulfate gm 0.25 gm In Amino Acids 5 %/Dextrose 20 % 1,000 ml @ 108 mls/ hr IV .BY DURATION [facility] Rx #:[id number] Piperacillin-Tazobactam 3 200 100 .375 gm In Sodium Chloride 0.9% 100 ml @ 25 mls/hr IVPB Q8HR [facility] Rx# :[id number] Intake, IV Titration 2323.5 1296 Amount DAPTOmycin 500 mg In 100 Sodium Chloride 0.9% 50 ml @ 100 mls/hr IVPB Q24HR [facility] Rx#:[id number] Mvi, Adult No.4 with Vit 1188 1296 K 10 ml Trace (Conc-1Ml/ Dose) 1 ml Sodium Acetate 20 meq Potassium Acetate 20 meq Calcium Gluconate 1 gm Potassium Phosphate 15 mmol Magnesium Sulfate gm 0.4 gm In Amino Acids 5 %/Dextrose 20 % 1,000 ml @ 108 mls/ hr IV .BY DURATION [facility] Rx #:[id number] Sodium Acetate 20 meq 1035.5 Potassium Acetate 20 meq Calcium Gluconate 1 gm Potassium Phosphate 15 mmol Magnesium Sulfate gm 0.25 gm In Amino Acids 5 %/Dextrose 20 % 1,000 ml @ 108 mls/hr IV .BY DURATION [facility] Rx#: [id number] Oral 550 Output: Drainage 60 Right Upper Abdomen 60 Urine 1500 2200 400 Other: Voiding Method Urinal Urinal # Voids 3 # Bowel Movements 1 ABP, PAP, CO, CI - Last Documented Arterial Blood Pressure 158/44 - Exam GENERAL EXAM: Alert, 52-year-old male patient, on room air, with significant abdominal discomfort. HEAD: Normocephalic. EYES: Normal reaction of pupils, equal size. NOSE: Nasogastric tube secured in place. Clear with pink turbinates. THROAT: No erythema or exudates. NECK: No masses, no JVD. CHEST: No chest wall deformity. LUNGS: Equal air entry with no crackles, wheeze, rhonchi or dullness. CVS: S1 and S2 normal with no audible murmur, regular rhythm. ABDOMEN: Midline incision with dehiscence with stool and air being expelled. Drain in place. Serous purulent drainage. SPINE: No scoliosis or deformity SKIN: No rashes CENTRAL NERVOUS SYSTEM: No focal deficits, tone is normal in all 4 extremities. EXTREMITIES: There is no peripheral edema. No clubbing, no cyanosis. Peripheral pulses are intact. - Labs CBC & Chem 7: 09/13/22 04:18 09/13/22 04:18 Labs: Abnormal Lab Results - Last 24 Hours (Table) 09/12/22 09/12/22 09/12/22 Range/Units 11:54 16:47 23:51 WBC (3.8-10.6) k/uL RBC (4.30-5.90) m/uL Hgb (13.0-17.5) gm/dL Hct (39.0-53.0) % Plt Count (150-450) k/uL Sodium (137-145) mmol/L Carbon Dioxide (22-30) mmol/L Glucose (74-99) mg/dL POC Glucose (mg/dL) 142 H 154 H 140 H (70-110) mg/dL 09/13/22 09/13/22 Range/Units 04:18 04:18 WBC 17.9 H (3.8-10.6) k/uL RBC 3.30 L (4.30-5.90) m/uL Hgb 9.0 L (13.0-17.5) gm/dL Hct 28.1 L (39.0-53.0) % Plt Count 458 H (150-450) k/uL Sodium 134 L (137-145) mmol/L Carbon Dioxide 21 L (22-30) mmol/L Glucose 136 H (74-99) mg/dL POC Glucose (mg/dL) (70-110) mg/dL Microbiology - Last 24 Hours (Table) 09/11/22 13:00 Gram Stain - Preliminary Aspirate Body Fluid Culture - Preliminary Gram Neg Bacilli 09/11/22 19:00 Wound Culture - Preliminary Abdomen Gram Neg Bacilli Assessment and Plan Assessment: Acute pneumoperitoneum, secondary to perforated colonic diverticulum and transverse colon. Status post robotic-assisted laparoscopy with extensive lysis of adhesions, right hemicolectomy and primary anastomosis and drainage of abdominal abscess abdominal peritoneal lavage and placement of SARAI drain as well as incisional wound VAC system. Follow-up computed tomography scan 09/10/2022 revealed loculated and non-loculated perihepatic collections some of which demonstrate mildly thickened almeida with internal foci of air.. Hepatic abscesses are not excluded. Persistent dilatation of the small bowel small bowel wall thickening and inflammatory change in the interval colonic anastomotic site. Persistent postoperative ileus and/or obstructive change is not excluded. Adjacent drains in place. Leak is difficult to exclude. Small amount of free air persistent but improved. He did undergo a CT-guided catheter drainage of the liver abscess on 09/11/2022. Cultures pending. Severe abdominal sepsis secondary to E. coli, pseudomonas aeruginosa, enterococcus faecium. Remains on daptomycin and Zosyn. The patient developed a wound dehiscence on 09/13/2022 with stool and air oozing from the surgical site. Plan is to return to the operating room today 09/13/2022 Febrile illness secondary to above Sinus tachycardia secondary to sepsis History of colon cancer status post resection Acute kidney injury, improved Acute lactic acidosis secondary to sepsis Intra-abdominal abscess Abdominal ascites History of sarcoidosis Plan: The patient was seen and evaluated Now with wound dehiscence Plan is to return to the OR today Labs and medications reviewed Continue Zosyn, daptomycin Being nourished with TPN/lipids Return to ICU post surgery We will continue to follow I have personally seen and examined the patient, performed the documentation and the assessment and plan as written. Number of minutes spent on the visit: 10.
[2022-09-13] MEDS ORDERED: SODIUM CHLORIDE TAB 1 GM TAB PO ONE (11:00)
[2022-09-13] MEDS ORDERED: LACTATED RINGERS 1,000 ML IV ONE ×5 (11:14→16:45)
--- NOTE | 2022-09-13 14:59 | P.PN ---
Subjective Progress Note Date: 09/13/22 This is a 52 year old male monitored in the intensive care unit postoperative day #4 lysis of adhesions and right hemicolectomy due to bowel perforation. Patient had end to end anastamosis. Has not had bowel movement, had KUB xray today showing multiple dilated small bowel loops possible ileus vs. obstruction. General surgery recommending patient to be NPO at this time. Heart rate remains elevated in the 120s and patient switched to IV lopressor. Remains on IV daptomycin and IV zosyn for positive peritoneal fluid culture with E. Coli, enterococcus and pseudomonas. Blood culture negative so far. Patient remains on D5 water at 100 mls/hr, sodium is slightly improved today down to 146. Continues on TPN, NG tube has been discontinued. Accuchecks switched to Q6h and small dose of levemir HS has been added. SARAI drain in place with serous drainage. Patient febrile today up to 101.9, encouraged to continue with incentive spirometer. Patient has wound vac in place to continuous suction, plan to ambulate around the room and up in the chair today. 09/09/2022 Patient is evaluated today in the ICU resting in bed. Alert x 3. Asking about discharge. Repeat blood culture is pending patient remains on IV antibiotics. White count up to 19.7 today. Patient reports BM yesterday and passing some gas today. Abdomen is more distended. Surgery recommending NG tube today. Patient remains NPO. Midline incisional wound vac in place. Patient remains with fever, using incentive spirometer reaching 1200. Continues on TPN. 09/10/2022 Patient remains in the intensive care unit. Patient continues to be NPO. 3 attempts were made to pass NG tube and were unsuccessful. Patient did have 2 BMs yesterday, abdomen remains significantly distended. Repeat abdominal pelvis CT reveals loculated and nonloculated perihepatic collections some of which demonstrate mildly thickened almeida with internal foci of air. Perihepatic abscesses are not excluded. Persistent dilation of small bowel with small bowel wall thickening and inflammatory change at the enterocolonic anastomotic site. Persistent postoperative ileus and/or obstructive changes not excluded. Adjacent drain is in place. Contrast does not opacify the anastomotic site and therefore leak is difficult to evaluate or exclude. Small amt of free air persists improved from prior study. White count 18.3 today, electrolytes are normalized and blood glucose improved to 115. Patient remains on TPN. Blood culture remains negative. Remains on IV zosyn and IV daptomycin. Temp of 100.4 and remains tachycardic 121, blood pressure stable at 131/94. 09/11/2022 Patient is evaluated today in the intensive care unit. Remains tachycardic and T-Max of 100.7 overnight. Scheduled to undergo drainage and placement of drainage tube to the perihepatic abscess noted on CT imaging with IR today. White count down to 16.0 today. Continues on IV daptoymcin and IV vancomycin. Per nursing did have a small BM overnight. 09/12/2022 Patient evaluated today in the intensive care unit. Underwent CT guided abscess drainage with 100 mls of purulent drainage and also had midline fransisca removed at the top of incision with some purulent drainage. Patients white count is down to 12.8 today. Kidney function stable, sodium 135 today. Patient has been cleared to start diet, having small BMs. Metoprolol will be changed to oral. Fever is improving. Cultures are pending from the abscess and ID is following closely. 09/13/2022 Patient continues to be monitored closely in the intensive care unit. Patient continues with significant tachycardia not improving with metoprolol and continues with abdominal distention. Cardiology was placed on consultation for the tachycardia and patient has been transitioned back to IV lopressor. Wound cultures from the CT guided are showing gram negative bacilli. This morning per nursing the abdomen was more distended and patient had felt a popping sensation with evidence of leaking of brown colored drainage from the surgical incision a nd the drainage bag. The surgical incision was opened yesterday at the bedside by surgery. Patient was taken for emergent exploratory laporotomy. White count is 17.9 today, sodium 134, potassium 5.0. Kidney function remains stable. Patient has been continued to be NPO no NG tube present. Labs and vitals reviewed. Did not complete review of systems patient was not present for evaluation has been in the OR with multiple attempts to round on the patient. Assessment Sepsis secondary to perforated diverticulum postoperative day #9 evacuation of abscess, lysis of adhesions, right hemicolectomy. Patient returns to the OR today for exploratory laporotomy secondary to brown and purulent drainage from the abdominal incision Status post CT guided drainage of abscess on 09/11/22 cultures showing gram negative bacilli Postoperative ileus Fever and persistent sinus tachycardia Colon cancer s/p resection on 08/29/2022 Acute kidney injury secondary to ATN and sepsis resolved Leukocytosis Hypernatremia resolved Hx hyperlipidemia Sarcoidosis with asthma Nicotine use GI prophylaxis DVT prophylaxis Full Code Plan Continue IV antibiotics, infectious disease following closely Patient continues to be febrile and blood cultures have been repeated and pending negative so far Pending cultures of abscess Patient has been placed back NPO. Continue CBG Q6h hour and novolog s/s q6h. Cardiology following and IV lopressor resumed as patient has been made NPO again. Patient currently in the OR for exploratory laporotomy. Follow up AM labs. The impression and plan of care has been dictated by Misty Fairchild Nurse Practitioner as directed. Dr. Kai MD I have performed a history and physical examination and medical decision making of this patient, discussed the same with the dictator, and agree with the dictators assessment and plan as written, documented as a scribe. Based on total visit time, I have performed more than 50% of this visit. Objective - Vital Signs Vital signs: Vital Signs Temp 100.7 F H 09/13/22 08:00 Pulse 122 H 09/13/22 08:00 Resp 18 09/13/22 08:00 BP 122/62 09/13/22 08:00 Pulse Ox 97 09/13/22 08:38 FiO2 40 09/05/22 12:00 Intake & Output 09/12/22 09/13/22 09/13/22 18:59 06:59 18:59 Intake Total 4437.5 1396 300 Output Total 1560 2200 400 Balance 2877.5 -804 -100 Weight 107.1 kg Intake: IV 1564 100 300 Mvi, Adult No.4 with Vit 1364 K 10 ml Trace (Conc-1Ml/ Dose) 1 ml Sodium Acetate 10 meq Potassium Acetate 20 meq Calcium Gluconate 1 gm Potassium Phosphate 15 mmol Magnesium Sulfate gm 0.25 gm In Amino Acids 5 %/Dextrose 20 % 1,000 ml @ 108 mls/ hr IV .BY DURATION [facility] Rx #:[id number] Piperacillin-Tazobactam 3 200 100 .375 gm In Sodium Chloride 0.9% 100 ml @ 25 mls/hr IVPB Q8HR [facility] Rx# :[id number] Intake, IV Titration 2323.5 1296 Amount DAPTOmycin 500 mg In 100 Sodium Chloride 0.9% 50 ml @ 100 mls/hr IVPB Q24HR [facility] Rx#:[id number] Mvi, Adult No.4 with Vit 1188 1296 K 10 ml Trace (Conc-1Ml/ Dose) 1 ml Sodium Acetate 20 meq Potassium Acetate 20 meq Calcium Gluconate 1 gm Potassium Phosphate 15 mmol Magnesium Sulfate gm 0.4 gm In Amino Acids 5 %/Dextrose 20 % 1,000 ml @ 108 mls/ hr IV .BY DURATION [facility] Rx #:[id number] Sodium Acetate 20 meq 1035.5 Potassium Acetate 20 meq Calcium Gluconate 1 gm Potassium Phosphate 15 mmol Magnesium Sulfate gm 0.25 gm In Amino Acids 5 %/Dextrose 20 % 1,000 ml @ 108 mls/hr IV .BY DURATION [facility] Rx#: [id number] Oral 550 Output: Drainage 60 Right Upper Abdomen 60 Urine 1500 2200 400 Other: Voiding Method Urinal Urinal Urinal # Voids 3 # Bowel Movements 1 ABP, PAP, CO, CI - Last Documented Arterial Blood Pressure 158/44 - Labs CBC & Chem 7: 09/13/22 04:18 09/13/22 04:18 Labs: Abnormal Lab Results - Last 24 Hours (Table) 09/12/22 09/12/22 09/13/22 Range/Units 16:47 23:51 04:18 WBC (3.8-10.6) k/uL RBC (4.30-5.90) m/uL Hgb (13.0-17.5) gm/dL Hct (39.0-53.0) % Plt Count (150-450) k/uL Sodium 134 L (137-145) mmol/L Carbon Dioxide 21 L (22-30) mmol/L Glucose 136 H (74-99) mg/dL POC Glucose (mg/dL) 154 H 140 H (70-110) mg/dL 09/13/22 Range/Units 04:18 WBC 17.9 H (3.8-10.6) k/uL RBC 3.30 L (4.30-5.90) m/uL Hgb 9.0 L (13.0-17.5) gm/dL Hct 28.1 L (39.0-53.0) % Plt Count 458 H (150-450) k/uL Sodium (137-145) mmol/L Carbon Dioxide (22-30) mmol/L Glucose (74-99) mg/dL POC Glucose (mg/dL) (70-110) mg/dL Microbiology - Last 24 Hours (Table) 09/11/22 13:00 Gram Stain - Preliminary Aspirate Body Fluid Culture - Preliminary Gram Neg Bacilli 09/11/22 19:00 Wound Culture - Preliminary Abdomen Gram Neg Bacilli Assessment and Plan Time with Patient: Less than 30
[2022-09-13] MEDS: METOPROLOL TARTRATE 5 MG/5 ML VIAL IVP SCH ×3 (15:43→22:15)
[2022-09-13] MEDS: HEPARIN SODIUM,PORCINE/PF 5,000 UNIT/0.5 ML SYRINGE SQ SCH ×3 (15:44→22:10)
[2022-09-13] MEDS: PANTOPRAZOLE 40 MG/10 ML VIAL IV SCH (15:44)
[2022-09-13] MEDS: DAPTOmycin 500 MG in SODIUM CHLORIDE 0.9% 50 ML IVPB SCH (18:08)
[2022-09-13] MEDS ORDERED: propofoL 100 ML IV ONE (18:13)
[2022-09-13 18:17] LABS: Glucose,Whole Blood 100 mg/dL (70-110)
[2022-09-13] MEDS ORDERED: CISATRACURIUM 2 MG/ML 5 ML VIAL IV ONE (18:30)
[2022-09-13 19:01] LABS: ABG Base Excess -6.2 mmol/L; ABG HCO3 22 mmol/L (21-25); ABG Oxygen Saturation 99.8 % (94-97); ABG PCO2 59 mmHg (35-45); ABG PO2 342 mmHg (83-108); ABG TCO2 24 mmol/L (19-24); Allen Test Performed? Yes
[2022-09-13 19:05] LABS: ABG PH 7.18 (7.35-7.45)
--- NOTE | 2022-09-13 19:13 | XR ---
EXAMINATION TYPE: XR chest 1V portable DATE OF EXAM: 09/13/2022 7:08 PM COMPARISON: Chest radiographs from 09/11/2022 TECHNIQUE: XR chest 1V portable Frontal view of the chest. CLINICAL INDICATION:Male, 52 years old with history of Tube placement; FINDINGS: Lungs/Pleura: Bibasilar atelectasis. No evidence for pneumothorax, pleural effusion or focal consolid ation. Pulmonary vascularity: Unremarkable. Heart/mediastinum: Cardiomediastinal silhouette is unremarkable. Musculoskeletal: No acute osseous pathology. Other findings: None Lines/Tubes: Endotracheal tube with distal tip 3.2 cm above the katelyn. Nasogastric tube with its distal tip and side-port projecting under the diaphragm and projecting over the gastric lumen. Left-sided PICC with distal tip at the superior vena cava/brachiocephalic confluence. IMPRESSION: 1. Support tubes in appropriate position. 2. Bibasilar atelectasis.
--- NOTE | 2022-09-13 19:20 | P.OP ---
Date of Procedure: 09/13/22 Description of Procedure: SURGEON: STEFFI PAULINO MD PREOPERATIVE DIAGNOSES: 1. Bowel perforation 2. Colon cancer status post right hemicolectomy 3. Sepsis 4. Supraventricular tachycardia 5. Sarcoidosis 6. Perihepatic abscess POSTOPERATIVE DIAGNOSES: 1. Small bowel necrosis with perforation 2. Colon cancer status post right hemicolectomy 3. Sepsis 4. Supraventricular tachycardia 5. Sarcoidosis 6. Perihepatic abscess 7. Anastomotic leak 8. Severe peritoneal interloop adhesions OPERATION: 1. Exploratory laparotomy and extensive lysis of adhesions over 4 hours 2. Resection of ileocolic anastomosis 3. Drainage of perihepatic loculated abscess with removal of CT-guided drain 4. Small bowel resection for small bowel necrosis/perforation 5. Placement of ileostomy 6. Abdominal washout, 7 L normal saline 7. Debridement of abdominal wall midline incision 20 cm x 3 cm 8. Placement of [place] round #19 drain, right anterior lateral hepatic space 9. Placement of [place] round #19 drain right pelvis 10. Quarter inch Don drain placed in subcutaneous tissue midline incision 11. Placement of PREVENA universal incisional wound VAC system ANESTHESIA: General ESTIMATED BLOOD LOSS: 100mL. SPECIMENS REMOVED: 1. Ileocolic anastomosis 2. Small bowel resection 2 COMPLICATIONS: None. Condition: Critical Disposition: Intensive care unit, intubated Operative Findings: 1. Spontaneous pinpoint small bowel necrosis and perforation distal jejunum and pelvis unrelated to anastomosis 2. Anastomotic leak, right upper quadrant extending to right pelvis and perihepatic space, drained 3. Small bowel to sigmoid colon fused within the pelvis with careful dissection 4. Small bowel resection of 4-mm small bowel necrosis with perforation and anastomosis 5. Severe interloop and peritoneal adhesions requiring over 4 hours extensive lysis of adhesions to minimize enterotomy and deserosalization 6. Small bowel decompressed with ileostomy and moderate edema of small bowel identified INDICATIONS: The patient is a 52-year-old male recently diagnosed with invasive ascending colon cancer from the cecum status post resection. He had done well however returned to the hospital with sepsis and pneumoperitoneum. Initial findings include perforated diverticulum found along the transverse colon distal to anastomosis which was resected along with primary anastomosis. Patient was doing well 24 hours ago until he had spontaneous "pop"at the right upper quadrant earlier today. Patient was nontoxic in appearance. From his wound, moderate drainage and air was emanating suspicious for bowel perforation. Emergent exploratory laparotomy described. Benefits and risks including but not limited to placement of ostomy, bleeding, infection was described at length. Informed consent was obtained. DESCRIPTION: Patient was brought to the operating room. Preoperative medications were scheduled. The patient was placed in supine position whereby general induction was performed. Abdomen had been prepped and draped in the standard sterile fashion with placement of Cruz catheter. Midline wound included an ostomy bag to capture moderate drainage. Ostomy bag was discontinued. CT-guided catheter tubing was also prepped into the field. Ioban draping was placed to minimize contamination to the skin. After timeout protocol was confirmed with the team, fransisca were discontinued from recent midline incision. Drainage of sanguiopurulent was controlled using a suction device. Extremely dense adhesions interloop including peritoneal adhesions were found requiring extensive lysis of adhesions over 4 hours. Next, Bookwalter retractor was placed. Lysis of adhesions were performed with combination of blunt dissection including cautery and scissors to minimize the serosal injury of the small bowel including enterotomies. The entire small bowel was moderately distended with adhesions involving the mesentery as well. The small bowel was densely adherent along all 4 quadrants including of the pelvis. Immediate gush of stool was identified in the pelvis. Separately, pinpoint small bowel perforation from small bowel necrosis less than 4 mm in size was found of the pelvis. Via perforation, the small bowel was decompressed. The perforation was oversewn temporarily using 3-0 silk. Extensive lysis of adhesions was performed until the small bowel was freed from the ligament of Treitz and distally to the anastomosis. The small bowel was also found fused to the sigmoid colon with careful meticulous dissection using blunt and sharp scissor to separate the sigmoid colon from the small bowel. Less than 1 cm of deserosalization was found of the proximal jejunum which was oversewn using 3-0 silk imbricated. Similarly, the sigmoid colon was inspected and small mesentery defect of the mid sigmoid colon was oversewn using interrupted 3-0 silk. As the small bowel was decompressed, the anastomosis was inspected and anastomotic leak from blowout was identified. The anastomosis was resected using an Ethicon echelon powered stapler, black load 60 mm of the small bowel and colon. Hemostasis was checked. 3-0 silk tacking suture was placed for the proposed ileostomy. The residual transverse colon was tacked using 2-0 Prolene. Next, attention was brought to the perihepatic space was bluntly dissected and immediately stool was evacuated from the perihepatic space. Loculations were disrupted. CT-guided catheter was palpated and cut and removed. The perihepatic space was thoroughly irrigated with 3 L normal saline solution until clear. The paracolic gutters were copiously irrigated with normal saline until clear. The small bowel was also similarly irrigated. Round #19 SARAI drain was brought out from the left upper quadrant to the perihepatic space anterior to the liver. Separate round #19 drain was placed along the left lower pelvis and placed along the right paracolic gutters. The small bowel perforation with moderate deserosalization from extensive lysis of adhesions was resected using 60 mm black loads as the small bowel was moderately edematous including mesentery. Primary antiperistaltic side to side anastomosis was performed after creating enterotomy along the antimesenteric border and closed using 60 mm black staple loads. Small bowel resection occurred along the distal jejunum. The abdomen was copiously irrigated with 6 L normal saline solution and prepared for ileostomy. The ileum was moderately edematous and brought out through the abdominal wall in the right lower quadrant after excising quarter size portion of skin using cautery. Due to the thickness of subcutaneous tissue, mild ischem ia was found of the small bowel which was resected. The ileum was brought onto the anterior abdominal wall. Spillage did occur and the abdomen was again irrigated with normal saline 1 L solution. Total irrigation of 7 liters normal saline was used throughout the case. The abdominal wall and subcutaneous tissue was debrided using sharp debridement of Bovie cautery for necrotic tissue prior to closure of the fascia of 20 cm x 3 cm. The midline incision was closed using double-stranded 0 PDS. Next, the subcutaneous tissue was copiously irrigated with normal saline and hydrogen peroxide. Quarter inch [place] drain was placed along the length of the midline incision. All drains and Don drains were tacked to the skin using 2-0 nylon. For the rest of the incision, widely spaced stainless steel skin fransisca were applied. The midline incision was covered using universal PREVENA wound VAC and attention was brought to maturation of the ostomy. The staple edge was divided and remove d. Next quadrant sutures at 12 o'clock, 3 o'clock, 6 o'clock, and 9 o'clock position was made using serosa, mucosal and dermal bites using 3-0 Vicryl. Interrupted 3-0 Vicryl was placed in between all quadrants sutures to completely mature the ostomy. Hemostasis was checked. A Coloplast was then placed. At the end of the procedure, needle, sponge, and instrument count had been verified correct by regional vice president surgical sales. The patient tolerated the procedure well and was extubated with removal of her nasogastric tube. The patient's family was updated on level of care with intraoperative findings and pictures reviewed.
[2022-09-13] MEDS ORDERED: SODIUM CHLORIDE 0.9% 1,000 ML IV ONE ×2 (19:30→20:30)
[2022-09-13] MEDS: NOREPINEPHRINE 8 MG in SODIUM CHLORIDE 0.9% 250 ML IV SCH ×2 (20:18→23:31)
[2022-09-13] MEDS: CISATRACURIUM 200 MG in SODIUM CHLORIDE 0.9% 180 ML IV SCH (20:18)
[2022-09-13 20:45] LABS: ABG Base Excess -7.5 mmol/L; ABG HCO3 20 mmol/L (21-25); ABG Oxygen Saturation 97.3 % (94-97); ABG PCO2 45 mmHg (35-45); ABG PH 7.25 (7.35-7.45); ABG PO2 105 mmHg (83-108); ABG TCO2 21 mmol/L (19-24); Allen Test Performed? Yes
[2022-09-13] MEDS: IPRATROPIUM-ALBUTEROL 3 ML NEB INHALATION SCH ×2 (21:08→21:10)
[2022-09-13] MEDS ORDERED: SODIUM BICARB 8.4% 50 ML SYR (1 MEQ/ML) IV STA ×2 (21:13)
[2022-09-13] MEDS: SODIUM CHLORIDE 0.9% 1,000 ML IV SCH (21:41)
[2022-09-13] MEDS: VASOPRESSIN 20 UNIT in SODIUM CHLORIDE 0.9% 50 ML IV SCH (21:47)
[2022-09-13] MEDS: CHLORHEXIDINE GLUCONATE 15 ML CUP MUCOUS MEM SCH (22:05)
--- NOTE | 2022-09-13 22:25 | PCN ---
PROCEDURE NOTE PROCEDURE PERFORMED: Right radial arterial line. PREOPERATIVE DIAGNOSIS: Frequent blood draws and blood gas monitoring. POSTOPERATIVE DIAGNOSIS: Frequent blood draws and blood gas monitoring. There was informed consent and universal timeout. ARTERIAL LINE PLACEMENT: Indications: Hemodynamic monitoring. A time-out was completed verifying correct patient, procedure, site, positioning, and implant(s) or special equipment if applicable. Simon's test was performed to ensure adequate perfusion. The patient's right wrist was prepped and draped in sterile fashion. 1% Lidocaine was used to anesthetize the area. An 18G Arrow arterial line was introduced into the right radial artery. The catheter was threaded over the guide wire and the needle was removed with appropriate pulsatile blood return. Blood loss was minimal. The catheter was then sutured in place to the skin and a sterile dressing applied. Perfusion to the extremity distal to the point of catheter insertion was checked and found to be adequate. There was good blood return and waveform. The patient tolerated the procedure well. The catheter was sutured in place. A sterile dressing was applied by the nurse. There was no immediate complication. MMODL / IJN: [id number] /
--- NOTE | 2022-09-13 22:31 | PCN ---
PROCEDURE NOTE PROCEDURE PERFORMED: Left internal jugular triple-lumen catheter. PREOPERATIVE DIAGNOSIS: Administration of fluids and pressors, and hypotension. POSTOPERATIVE DIAGNOSIS: Administration of fluids and pressors, and hypotension. There was informed consent and universal timeout. TRIPLE LUMEN CATHETER PLACEMENT: Indication: Hemodynamic monitoring/Intravenous access. A time-out was completed verifying correct patient, procedure, site, positioning, and implant(s) or special equipment if applicable. The patient was placed in a dependent position appropriate for triple lumen catheter placement based on the vein to be cannulated. The patient's left shoulder or left neck or left groin was prepped and draped in sterile fashion. 1% Lidocaine was used to anesthetize the surrounding skin area. A triple lumen 9F Cordis catheter was introduced into the left internal jugular vein using Seldinger technique. The catheter was threaded smoothly over the guide wire and appropriate blood return was obtained. Each lumen of the catheter was evacuated of air and flushed with sterile saline. The catheter was then sutured in place to the skin and a sterile dressing applied. Perfusion to the extremity distal to the point of catheter insertion was checked and found to be adequate. We used the left internal jugular vein. We went via the posterior approach. There was good blood return from all 3 ports. The catheter was sutured in place. A sterile dressing was applied by the nurse. There was no complication. The chest x-ray showed the position of the catheter between the junction of the superior vena cava and right atrium. Again, there was no complication. The patient tolerated the procedure well. Sterile dressing was applied by the nurse. MMODL / IJN: [id number] /
[2022-09-13] MEDS: FAT EMULSION 20% 250 ML in EMPTY BAG 1 BAG IV SCH (22:42)
[2022-09-13 23:41] LABS: Glucose,Whole Blood 175 mg/dL (70-110)
[2022-09-13] MEDS: HYDROmorphone 1 MG/ML 1 ML SYRINGE IVP PRN (23:43)
[2022-09-14] MEDS: ACETAMINOPHEN IV (For NPO) 1,000 MG in EMPTY BAG 1 BAG IVPB SCH ×4 (00:31→18:04)
[2022-09-14] MEDS: METOCLOPRAMIDE 5 MG/ML 2 ML VIAL IVP SCH ×4 (00:31→18:06)
[2022-09-14] MEDS: METOPROLOL TARTRATE 5 MG/5 ML VIAL IVP SCH ×2 (00:52→05:11)
[2022-09-14] MEDS: INSULIN ASPART (NovoLOG) 100 UNIT/ML VIAL SQ SCH ×5 (00:59→17:49)
[2022-09-14] MEDS: PIPERACILLIN-TAZOBACTAM 3.375 GM in SODIUM CHLORIDE 0.9% 100 ML IVPB SCH ×3 (01:00→16:22)
[2022-09-14] MEDS: IPRATROPIUM-ALBUTEROL 3 ML NEB INHALATION SCH ×7 (01:05→20:46)
[2022-09-14] MEDS: SODIUM CHLORIDE 0.9% 1,000 ML IV SCH ×4 (01:32→21:28)
[2022-09-14] MEDS: HYDROmorphone 0.5 MG/0.5 ML SYRINGE IVP PRN ×3 (01:50→16:22)
[2022-09-14] MEDS: NOREPINEPHRINE 8 MG in SODIUM CHLORIDE 0.9% 250 ML IV SCH ×4 (02:10→18:15)
[2022-09-14] MEDS: HYDROmorphone 1 MG/ML 1 ML SYRINGE IVP PRN ×2 (04:49→20:08)
[2022-09-14] MEDS: CISATRACURIUM 200 MG in SODIUM CHLORIDE 0.9% 180 ML IV SCH (05:06)
[2022-09-14 05:09] LABS: Basophils # (A) 0.1 k/uL (0-0.2); Basophils % (A) 0 %; Eosinophils % (A) 0 %; HCT 29.3 % (39.0-53.0); HGB 9.3 gm/dL (13.0-17.5); Lymphocytes # (A) 0.8 k/uL (1.0-4.8); Lymphocytes % (A) 4 %; MCH 27.3 pg (25.0-35.0); MCHC 31.9 g/dL (31.0-37.0); MCV 85.4 fL (80.0-100.0); Mean Platelet Volume 8.6; Monocytes # (A) 0.7 k/uL (0-1.0); Monocytes % (A) 3 %; Neutrophils # (A) 18.2 k/uL (1.3-7.7); Neutrophils % (A) 91 %; Platelet Count 481 k/uL (150-450); RBC 3.43 m/uL (4.30-5.90); RDW 15.1 % (11.5-15.5); WBC 20.1 k/uL (3.8-10.6)
[2022-09-14 06:04] LABS: African American GFR (CKD) 40 (>60 ml/min/1.73 sqM); Anion Gap 6 mmol/L; Blood Urea Nitrogen 32 mg/dL (9-20); Carbon Dioxide 20 mmol/L (22-30); Chloride 105 mmol/L (98-107); Glucose 379 mg/dL (74-99); Magnesium 1.4 mg/dL (1.6-2.3); Non-African American GFR(CKD) 35 (>60 ml/min/1.73 sqM); Sodium 131 mmol/L (137-145)
[2022-09-14 06:06] LABS: Glucose,Whole Blood 434 mg/dL (70-110)
[2022-09-14 06:06] LABS: Calcium 6.4 mg/dL (8.4-10.2); Potassium 6.6 mmol/L (3.5-5.1)
[2022-09-14] MEDS: INSULIN DETEMIR (LEVEMIR) 100 UNIT/ML SYR SQ SCH ×2 (06:08→20:47)
[2022-09-14] MEDS ORDERED: INSULIN REGULAR 100 UNIT/ML VIAL (IV) IV ONE ×2 (06:30→11:45)
[2022-09-14 06:45] LABS: ABG Base Excess -5.8 mmol/L; ABG HCO3 21 mmol/L (21-25); ABG Oxygen Saturation 99.4 % (94-97); ABG PCO2 41 mmHg (35-45); ABG PH 7.31 (7.35-7.45); ABG PO2 184 mmHg (83-108); ABG TCO2 22 mmol/L (19-24); Allen Test Performed? Yes
[2022-09-14] MEDS ORDERED: CALCIUM GLUCONATE IN NACL 1 GM in SALINE 1 100ML.BAG IVPB ONE (06:45)
[2022-09-14 06:48] LABS: Glucose,Whole Blood 402 mg/dL (70-110)
[2022-09-14] MEDS ORDERED: Magnesium Replacement Protocol 1 EACH MISC MISCELLANE PRN (07:06)
--- NOTE | 2022-09-14 07:17 | XR ---
EXAMINATION TYPE: XR chest 1V portable DATE OF EXAM: 09/14/2022 6:08 AM COMPARISON: Chest radiographs from TECHNIQUE: XR chest 1V portable Frontal view of the chest. CLINICAL INDICATION:Male, 52 years old with history of Tube placement; FINDINGS: Lungs/Pleura: Bibasilar atelectasis. No evidence for pneumothorax, pleural effusion or focal consolid ation. Pulmonary vascularity: Unremarkable. Heart/mediastinum: Cardiomediastinal silhouette is unremarkable. Musculoskeletal: No acute osseous pathology. Other findings: None Lines/Tubes: Endotracheal tube with distal tip 4.6 cm above the katelyn. Nasogastric tube with its distal tip and side-port projecting under the diaphragm and projecting over the gastric lumen. Left-sided PICC with distal tip at the superior vena cava/brachiocephalic confluence. IMPRESSION: 1. Support tubes in appropriate position. 2. Bibasilar atelectasis.
[2022-09-14] MEDS: SIMETHICONE 80 MG CHEWABLE PO SCH (08:04)
[2022-09-14] MEDS: DAPTOmycin 500 MG in SODIUM CHLORIDE 0.9% 50 ML IVPB SCH (08:17)
[2022-09-14] MEDS: PANTOPRAZOLE 40 MG/10 ML VIAL IV SCH (08:18)
[2022-09-14] MEDS: MAGNESIUM SULFATE-D5W PMX 1 GM in DEXTROSE/WATER 1 100ML.BAG IVPB SCH ×2 (08:18→10:42)
[2022-09-14] MEDS: CHLORHEXIDINE GLUCONATE 15 ML CUP MUCOUS MEM SCH ×2 (08:18→20:46)
[2022-09-14] MEDS: HEPARIN SODIUM,PORCINE/PF 5,000 UNIT/0.5 ML SYRINGE SQ SCH ×2 (08:18→20:46)
[2022-09-14] MEDS ORDERED: MAGNESIUM SULFATE-D5W PMX 1 GM in DEXTROSE/WATER 1 100ML.BAG IVPB SCH (09:00)
--- NOTE | 2022-09-14 09:07 | P.PN ---
Subjective Progress Note Date: 09/14/22 Principal diagnosis: Colon cancer Patient remains on the ventilator after yesterday's laparotomy with resection and ileostomy. He has been on vasopressors although the right is decreasing. White blood cell count today 20 hemoglobin 9.3 potassium 6.6 creatinine 2.15. Suction dressing in place. Ileostomy pink without function. Drains with serous output. Objective - Vital Signs Vital signs: Vital Signs Temp 100.2 F H 09/14/22 04:00 Pulse 122 H 09/14/22 08:24 Resp 28 H 09/14/22 07:00 BP 123/80 09/13/22 19:45 Pulse Ox 97 09/14/22 07:00 FiO2 40 09/14/22 08:11 Intake & Output 09/13/22 09/14/22 09/14/22 18:59 06:59 18:59 Intake Total 5000 5948.759 Output Total 800 1460 Balance 4200 4488.759 Intake: IV 5000 3937 Fat Emulsion 20% 250 ml 189 In Empty Bag 1 bag @ 21 mls/hr IV WeSa@1800 [facility] Rx#:[id number] Mvi, Adult No.4 with Vit 108 K 10 ml Trace (Conc-1Ml/ Dose) 1 ml Sodium Acetate 10 meq Potassium Acetate 20 meq Calcium Gluconate 1 gm Potassium Phosphate 15 mmol Magnesium Sulfate gm 0.25 gm In Amino Acids 5 %/Dextrose 20 % 1,000 ml @ 108 mls/ hr IV .BY DURATION [facility] Rx #:[id number] Mvi, Adult No.4 with Vit 540 K 10 ml Trace (Conc-1Ml/ Dose) 1 ml Sodium Acetate 40 meq Potassium Acetate 14 meq Calcium Gluconate 1 gm Potassium Phosphate 15 mmol Magnesium Sulfate gm 0.5 gm In Amino Acids 5 %/Dextrose 20 % 1,000 ml @ 108 mls/ hr IV .BY DURATION [facility] Rx #:[id number] Piperacillin-Tazobactam 3 200 .375 gm In Sodium Chloride 0.9% 100 ml @ 25 mls/hr IVPB Q8HR [facility] Rx# :[id number] Sodium Chloride 0.9% 1, 900 000 ml @ 150 mls/hr IV . Q6H40M [facility] Rx#:[id number] Sodium Chloride 0.9% 1, 2000 000 ml @ 999 mls/hr IV . Q1H1M [facility] Rx#:[id number] Intake, IV Titration 2010.759 Amount ACETAMINOPHEN IV (For NPO 100 ) 1,000 mg In Empty Bag 1 bag @ 400 mls/hr IVPB Q6HR [facility] Rx#:[id number] Cisatracurium 200 mg In 165.148 Sodium Chloride 0.9% 180 ml @ 2 MCG/KG/MIN 12.852 mls/hr IV .[id number] [facility] Rx #:[id number] Mvi, Adult No.4 with Vit 216 K 10 ml Trace (Conc-1Ml/ Dose) 1 ml Sodium Acetate 40 meq Potassium Acetate 14 meq Calcium Gluconate 1 gm Potassium Phosphate 15 mmol Magnesium Sulfate gm 0.5 gm In Amino Acids 5 %/Dextrose 20 % 1,000 ml @ 108 mls/ hr IV .BY DURATION [facility] Rx #:[id number] Norepinephrine 8 mg In 672.662 Sodium Chloride 0.9% 250 ml @ 0.03 MCG/KG/MIN 6. 217 mls/hr IV .Q24H [facility] Rx#:[id number] Sodium Chloride 0.9% 1, 600 000 ml @ 150 mls/hr IV . Q6H40M [facility] Rx#:[id number] propofoL 1,000 mg In 257.949 Empty Bag 1 bag @ 15 MCG/ KG/MIN 9.639 mls/hr IV . [id number] [facility] Rx#:[id number] Output: Drainage 215 Left Lower Abdomen 215 Urine 700 1245 Estimated Blood Loss 100 Other: Voiding Method Urinal Indwelling Catheter ABP, PAP, CO, CI - Last Documented Arterial Blood Pressure 98/63 - Exam Abdomen: Distended, dressings in place, SARAI is serous, ostomy pink - Labs CBC & Chem 7: 09/14/22 04:45 09/14/22 04:45 Labs: Abnormal Lab Results - Last 24 Hours (Table) 09/13/22 09/13/22 09/13/22 Range/Units 18:58 20:43 23:40 WBC (3.8-10.6) k/uL RBC (4.30-5.90) m/uL Hgb (13.0-17.5) gm/dL Hct (39.0-53.0) % Plt Count (150-450) k/uL Neutrophils # (1.3-7.7) k/uL Lymphocytes # (1.0-4.8) k/uL ABG pH 7.18 L* 7.25 L (7.35-7.45) ABG pCO2 59 H (35-45) mmHg ABG pO2 342 H (83-108) mmHg ABG HCO3 20 L (21-25) mmol/L ABG O2 Saturation 99.8 H 97.3 H (94-97) % Sodium (137-145) mmol/L Potassium (3.5-5.1) mmol/L Carbon Dioxide (22-30) mmol/L BUN (9-20) mg/dL Creatinine (0.66-1.25) mg/dL Glucose (74-99) mg/dL POC Glucose (mg/dL) 175 H (70-110) mg/dL Calcium (8.4-10.2) mg/dL Phosphorus (2.5-4.5) mg/dL Magnesium (1.6-2.3) mg/dL 09/14/22 09/14/22 09/14/22 Range/Units 04:45 04:45 04:45 WBC 20.1 H (3.8-10.6) k/uL RBC 3.43 L (4.30-5.90) m/uL Hgb 9.3 L (13.0-17.5) gm/dL Hct 29.3 L (39.0-53.0) % Plt Count 481 H (150-450) k/uL Neutrophils # 18.2 H (1.3-7.7) k/uL Lymphocytes # 0.8 L (1.0-4.8) k/uL ABG pH (7.35-7.45) ABG pCO2 (35-45) mmHg ABG pO2 (83-108) mmHg ABG HCO3 (21-25) mmol/L ABG O2 Saturation (94-97) % Sodium 131 L (137-145) mmol/L Potassium 6.6 H* (3.5-5.1) mmol/L Carbon Dioxide 20 L (22-30) mmol/L BUN 32 H (9-20) mg/dL Creatinine 2.15 H (0.66-1.25) mg/dL Glucose 379 H (74-99) mg/dL POC Glucose (mg/dL) (70-110) mg/dL Calcium 6.4 L* (8.4-10.2) mg/dL Phosphorus 5.2 H (2.5-4.5) mg/dL Magnesium 1.4 L (1.6-2.3) mg/dL 09/14/22 09/14/22 09/14/22 Range/Units 06:05 06:37 06:46 WBC (3.8-10.6) k/uL RBC (4.30-5.90) m/uL Hgb (13.0-17.5) gm/dL Hct (39.0-53.0) % Plt Count (150-450) k/uL Neutrophils # (1.3-7.7) k/uL Lymphocytes # (1.0-4.8) k/uL ABG pH 7.31 L (7.35-7.45) ABG pCO2 (35-45) mmHg ABG pO2 184 H (83-108) mmHg ABG HCO3 (21-25) mmol/L ABG O2 Saturation 99.4 H (94-97) % Sodium (137-145) mmol/L Potassium (3.5-5.1) mmol/L Carbon Dioxide (22-30) mmol/L BUN (9-20) mg/dL Creatinine (0.66-1.25) mg/dL Glucose (74-99) mg/dL POC Glucose (mg/dL) 434 H 402 H (70-110) mg/dL Calcium (8.4-10.2) mg/dL Phosphorus (2.5-4.5) mg/dL Magnesium (1.6-2.3) mg/dL Microbiology - Last 24 Hours (Table) 09/11/22 19:00 Wound Culture - Final Abdomen Escherichia coli 09/11/22 13:00 Gram Stain - Preliminary Aspirate Body Fluid Culture - Preliminary Gram Neg Bacilli 09/08/22 09:24 Blood Culture - Final Blood Assessment and Plan (1) Colon adenocarcinoma Narrative/Plan: 52-year-old male with colon cancer. Underwent laparotomy yesterday with resection and ileostomy. Patient with evidence of sepsis although improving today as far as his pressure requirements. Continue ventilatory support per pulmonary. Continue antibiotics. Await pathology input regarding hyperkalemia and increased creatinine this morning. Current Visit: Yes Status: Acute Priority: High Code(s): C18.9 - MALIGNANT NEOPLASM OF COLON, UNSPECIFIED SNOMED Code(s): 010736770
[2022-09-14] MEDS: VASOPRESSIN 20 UNIT in SODIUM CHLORIDE 0.9% 50 ML IV SCH ×2 (10:41→20:59)
--- NOTE | 2022-09-14 10:54 | P.PN ---
Subjective Progress Note Date: 09/14/22 Principal diagnosis: Abdominal discomfort This is a 52-year-old -[place] gentleman was admitted to the hospital with abdominal discomfort and initially underwent exploratory laparotomy and hemicolectomy on August 29 and currently his post exploratory laparotomy because of possible sepsis point we consulted the patient initiated for sinus tachycardia. An echo was performed and showed normal biventricular dimension and systolic function. Currently he is nothing by mouth. 09/14/2022 The patient was seen this morning. He underwent another surgery yesterday and was extensive surgery. Currently is intubated and he is on mechanical ventilation and currently is unstable requiring vasopressors. He continues to be in sinus tachycardia which is related to multiple factors including fever and volume loss during the surgery. In the light of being hypotensive going to DC metoprolol. From the cardiac standpoint of view, we will follow-up with the patient on when necessary. The patient is intubated and on mechanical ventilation. Assessment Abdominal discomfort Status post hemicolectomy The patient is in process of having exploratory laparotomy Sinus tachycardia likely to be multi-factorial Plan DC metoprolol Follow-up with the patient on when necessary case Objective - Vital Signs Vital signs: Vital Signs Temp 99.5 F 09/14/22 08:00 Pulse 128 H 09/14/22 09:00 Resp 28 H 09/14/22 09:00 BP 130/73 09/14/22 09:00 Pulse Ox 96 09/14/22 09:00 FiO2 40 09/14/22 08:11 Intake & Output 09/13/22 09/14/22 09/14/22 18:59 06:59 18:59 Intake Total 5000 5948.759 1176.760 Output Total 800 1460 705 Balance 4200 4488.759 471.760 Intake: IV 5000 3937 837 DAPTOmycin 500 mg In 100 Sodium Chloride 0.9% 50 ml @ 100 mls/hr IVPB Q24HR [facility] Rx#:[id number] Fat Emulsion 20% 250 ml 189 21 In Empty Bag 1 bag @ 21 mls/hr IV [id number] [facility] Rx#:[id number] Magnesium Sulfate-D5w Pmx 100 1 gm In Dextrose/Water 1 100ml.bag @ 100 mls/hr IVPB ONCE ONE Rx#: [id number] Mvi, Adult No.4 with Vit 108 K 10 ml Trace (Conc-1Ml/ Dose) 1 ml Sodium Acetate 10 meq Potassium Acetate 20 meq Calcium Gluconate 1 gm Potassium Phosphate 15 mmol Magnesium Sulfate gm 0.25 gm In Amino Acids 5 %/Dextrose 20 % 1,000 ml @ 108 mls/ hr IV .[facility] Rx #:[id number] Mvi, Adult No.4 with Vit 540 K 10 ml Trace (Conc-1Ml/ Dose) 1 ml Sodium Acetate 40 meq Potassium Acetate 14 meq Calcium Gluconate 1 gm Potassium Phosphate 15 mmol Magnesium Sulfate gm 0.5 gm In Amino Acids 5 %/Dextrose 20 % 1,000 ml @ 108 mls/ hr IV .[facility] Rx #:[id number] Piperacillin-Tazobactam 3 200 100 .375 gm In Sodium Chloride 0.9% 100 ml @ 25 mls/hr IVPB Q8HR [facility] Rx# :[id number] Sodium Acetate 60 meq 216 Calcium Gluconate 1.5 gm Magnesium Sulfate gm 1 gm In Amino Acids 5 %/ Dextrose 20 % 1,000 ml @ 108 mls/hr IV .[facility] Rx#: [id number] Sodium Chloride 0.9% 1, 900 300 000 ml @ 150 mls/hr IV . Q6H40M [facility] Rx#:[id number] Sodium Chloride 0.9% 1, 2000 000 ml @ 999 mls/hr IV . Q1H1M [facility] Rx#:[id number] Intake, IV Titration 75 339.760 Amount ACETAMINOPHEN IV (For NPO 100 ) 1,000 mg In Empty Bag 1 bag @ 400 mls/hr IVPB Q6HR [facility] Rx#:[id number] Cisatracurium 200 mg In 165.148 80.325 Sodium Chloride 0.9% 180 ml @ 2 MCG/KG/MIN 12.852 mls/hr IV .[id number] [facility] Rx #:[id number] Mvi, Adult No.4 with Vit 216 K 10 ml Trace (Conc-1Ml/ Dose) 1 ml Sodium Acetate 40 meq Potassium Acetate 14 meq Calcium Gluconate 1 gm Potassium Phosphate 15 mmol Magnesium Sulfate gm 0.5 gm In Amino Acids 5 %/Dextrose 20 % 1,000 ml @ 108 mls/ hr IV .[facility] Rx #:[id number] Norepinephrine 8 mg In 672.662 208.435 Sodium Chloride 0.9% 250 ml @ 0.03 MCG/KG/MIN 6. 217 mls/hr IV .Q24H [facility] Rx#:[id number] Sodium Chloride 0.9% 1, 600 000 ml @ 150 mls/hr IV . Q6H40M [facility] Rx#:[id number] Vasopressin 20 unit In 51 Sodium Chloride 0.9% 50 ml @ 0.03 UNITS/MIN 4.59 mls/hr IV .Q11H7M [facility] Rx# :[id number] propofoL 1,000 mg In 257.949 Empty Bag 1 bag @ 15 MCG/ KG/MIN 9.639 mls/hr IV . [id number] [facility] Rx#:[id number] Output: Drainage 215 90 Left Lower Abdomen 215 70 Left Upper Abdomen 20 Urine 700 1245 615 Estimated Blood Loss 100 Other: Voiding Method Urinal Indwelling Catheter ABP, PAP, CO, CI - Last Documented Arterial Blood Pressure 129/75 - Labs CBC & Chem 7: 09/14/22 04:45 09/14/22 08:54 Labs: Abnormal Lab Results - Last 24 Hours (Table) 09/13/22 09/13/22 09/13/22 Range/Units 18:58 20:43 23:40 WBC (3.8-10.6) k/uL RBC (4.30-5.90) m/uL Hgb (13.0-17.5) gm/dL Hct (39.0-53.0) % Plt Count (150-450) k/uL Neutrophils # (1.3-7.7) k/uL Lymphocytes # (1.0-4.8) k/uL ABG pH 7.18 L* 7.25 L (7.35-7.45) ABG pCO2 59 H (35-45) mmHg ABG pO2 342 H (83-108) mmHg ABG HCO3 20 L (21-25) mmol/L ABG O2 Saturation 99.8 H 97.3 H (94-97) % Sodium (137-145) mmol/L Potassium (3.5-5.1) mmol/L Carbon Dioxide (22-30) mmol/L BUN (9-20) mg/dL Creatinine (0.66-1.25) mg/dL Glucose (74-99) mg/dL POC Glucose (mg/dL) 175 H (70-110) mg/dL Calcium (8.4-10.2) mg/dL Phosphorus (2.5-4.5) mg/dL Magnesium (1.6-2.3) mg/dL 09/14/22 09/14/22 09/14/22 Range/Units 04:45 04:45 04:45 WBC 20.1 H (3.8-10.6) k/uL RBC 3.43 L (4.30-5.90) m/uL Hgb 9.3 L (13.0-17.5) gm/dL Hct 29.3 L (39.0-53.0) % Plt Count 481 H (150-450) k/uL Neutrophils # 18.2 H (1.3-7.7) k/uL Lymphocytes # 0.8 L (1.0-4.8) k/uL ABG pH (7.35-7.45) ABG pCO2 (35-45) mmHg ABG pO2 (83-108) mmHg ABG HCO3 (21-25) mmol/L ABG O2 Saturation (94-97) % Sodium 131 L (137-145) mmol/L Potassium 6.6 H* (3.5-5.1) mmol/L Carbon Dioxide 20 L (22-30) mmol/L BUN 32 H (9-20) mg/dL Creatinine 2.15 H (0.66-1.25) mg/dL Glucose 379 H (74-99) mg/dL POC Glucose (mg/dL) (70-110) mg/dL Calcium 6.4 L* (8.4-10.2) mg/dL Phosphorus 5.2 H (2.5-4.5) mg/dL Magnesium 1.4 L (1.6-2.3) mg/dL 09/14/22 09/14/22 09/14/22 Range/Units 06:05 06:37 06:46 WBC (3.8-10.6) k/uL RBC (4.30-5.90) m/uL Hgb (13.0-17.5) gm/dL Hct (39.0-53.0) % Plt Count (150-450) k/uL Neutrophils # (1.3-7.7) k/uL Lymphocytes # (1.0-4.8) k/uL ABG pH 7.31 L (7.35-7.45) ABG pCO2 (35-45) mmHg ABG pO2 184 H (83-108) mmHg ABG HCO3 (21-25) mmol/L ABG O2 Saturation 99.4 H (94-97) % Sodium (137-145) mmol/L Potassium (3.5-5.1) mmol/L Carbon Dioxide (22-30) mmol/L BUN (9-20) mg/dL Creatinine (0.66-1.25) mg/dL Glucose (74-99) mg/dL POC Glucose (mg/dL) 434 H 402 H (70-110) mg/dL Calcium (8.4-10.2) mg/dL Phosphorus (2.5-4.5) mg/dL Magnesium (1.6-2.3) mg/dL 09/14/22 Range/Units 08:54 WBC (3.8-10.6) k/uL RBC (4.30-5.90) m/uL Hgb (13.0-17.5) gm/dL Hct (39.0-53.0) % Plt Count (150-450) k/uL Neutrophils # (1.3-7.7) k/uL Lymphocytes # (1.0-4.8) k/uL ABG pH (7.35-7.45) ABG pCO2 (35-45) mmHg ABG pO2 (83-108) mmHg ABG HCO3 (21-25) mmol/L ABG O2 Saturation (94-97) % Sodium (137-145) mmol/L Potassium 5.9 H (3.5-5.1) mmol/L Carbon Dioxide (22-30) mmol/L BUN (9-20) mg/dL Creatinine (0.66-1.25) mg/dL Glucose (74-99) mg/dL POC Glucose (mg/dL) (70-110) mg/dL Calcium (8.4-10.2) mg/dL Phosphorus (2.5-4.5) mg/dL Magnesium (1.6-2.3) mg/dL Microbiology - Last 24 Hours (Table) 09/11/22 19:00 Gram Stain - Final Abdomen Wound Culture - Final Escherichia coli 09/11/22 13:00 Gram Stain - Preliminary Aspirate Body Fluid Culture - Preliminary Gram Neg Bacilli 09/08/22 09:24 Blood Culture - Final Blood
--- NOTE | 2022-09-14 11:01 | P.PN ---
Subjective Progress Note Date: 09/14/22 This is a 52-year-old -[place] male with history of colon cancer, status post right hemicolectomy for cecal colon cancer on 08/29/2022. Patient was discharged uneventfully on Percocet and Motrin for pain control. Patient was readmitted on 09/03/2022, he was mostly admitted with abdominal pain, distention, nausea and vomiting which started a few days prior to his admission. Patient was seen by surgery on consultation, and he was found to have acute pneumoperitoneum. Yesterday, the patient underwent robotic-assisted laparoscopic extensive lysis of adhesions open exploratory laparotomy with right hemicolectomy and primary anastomosis drainage of abdominal abscess abdominal peritoneal lavage, Margarita spent of a SARAI drain in the pelvis and placement of the incisional wound VAC system. I was notified about this patient from Dr. Moeller yesterday, and considering his abdominal sepsis presentation considering his surgical findings considering the patient was not extubated postoperatively, we admitted the patient to the ICU, manage his ventilator overnight, and I'm evaluating the patient today on consultation. Patient had a relatively uneventful night, did not require any pressors, he did receive fluids and he seems to be hemodynamically stable, remains on mechanical ventilation. His ventilator settings at this point are assist control rate of 18 tidal volume 500 FiO2 40% and PEEP of 5 recent ABG showed a pO2 of 79 pCO2 39 pH of 7.42 patient is on vancomycin and Zosyn for his abdominal sepsis he is on propofol at 65 mcg/kg/m he has good urine output roughly 30-50 mL per hour. Patient has a nasogastric tube applied to suction and he has a wound VAC. He also has a SARAI drain noted. Patient is sedated and calm, however I would recommend a trial of sedation interruption and possibly weaning parameters, if tolerated may consider further weaning and extubation today. Labs today showed relatively normal CBC WBC count is 8.6 hemoglobin is 10.4. Elect lites are normal BUN is 23 creatinine 1.36. Reevaluated today on 09/06/2022, patient remains in the ICU, patient was extub ated yesterday and he tolerated extubation well over the last 24 hours. He is on 2 L nasal cannula, not in any distress. Continues to have significant nasogastric output. Patient is to be started on TPN today. Doing better than expected overall. Remains on antibiotics for his abdominal sepsis. White count is 11.8 today hemoglobin is 9.6. Elect lites are normal renal profile is normal with a creatinine of 1.14, improving since admission from 2.14 on admission. Patient is compliant with his incentive spirometry and doing a good job with I- S. Reevaluated today on 09/07/2022, patient remains in the ICU, he feels generally weak, denies any shortness of breath, no cough, no wheezing. Continues to have nasogastric tube in place, and he had 1 50 mL of output overnight. Patient on TPN for nutritional support. His sodium was noted to be elevated today, and I recommended switching his IV fluid to D5W at 100 mL per hour. His labs otherwise are unremarkable. Patient is doing well with incentive spirometry, pain is fairly well controlled. Renal profile is normal, WBC count is 11.8 h emoglobin is 9.6 The patient is seen today 09/08/2022 in follow-up in the intensive care unit. He is currently resting comfortably in bed. Awake and alert in no acute distress. He is maintaining good O2 saturations in the mid 90s on room air. He is febrile with a temp of 101.9. Tachycardic. Hypertensive. Blood cultures pending. Abdominal x-ray revealed persistent markedly dilated small bowel loops. Peritoneal fluid cultures were positive for E. coli, Pseudomonas aeruginosa, enterococcus faecium. He remains nothing by mouth. He is continued on TPN and lipids. Antibiotics in the form of Zosyn and now daptomycin. Remains on heparin for DVT prophylaxis. He is up ambulating with assistance. The patient is seen today 09/09/2022 in follow-up in the intensive care unit. He is currently resting comfortably in bed. Awake and alert in no acute distress. White count 19.7. Hemoglobin 9.4. Platelets 245. Sodium 141. Potassium 3.9. Bicarb 24. BUN 14. Creatinine 0.78. Glucose 139. He is maintaining good O2 saturations in the mid 90s on room air. Continues with a low-grade fever currently at 100.8. Tachycardic. He is continued on TPN 108 ML's per hour. He has D5W it 100 ML's per hour. 0.9 normal setting at KVO. He is on antibiotics in the form of Zosyn and daptomycin. He is working well with the incentive spirometer. Remains on strict nothing by mouth per surgical services. The patient is seen today 09/10/2022 in follow-up in the intensive care unit. He is currently resting fairly comfortably in bed. Awake and alert in no acute distress. Chest x-ray shows improving bilateral infiltrate and small effusion. He continues to maintain good O2 saturations in the 90s on room air. Some abdominal distention and discomfort. Follow-up computed tomography scan pending. Still have an elevated temperatures up to 102.4 last night. White count 18.3. Hemoglobin 8.8. Sodium 139. Potassium 4.0. Bicarb 24. BUN 14. Creatinine 0.83. He remains on daptomycin and Zosyn. Being nourished with TPN at 108 ML's per hour. Heparin for DVT prophylaxis. The patient is seen today 09/11/2022 in follow-up in the intensive care unit. He is currently resting in bed. Awake and alert in no acute distress. Maintaining good O2 saturations in the 90s on room air. His initial peritoneal fluid cultures were positive for E. coli, pseudomonas aeruginosa, enterococcus faecium. Follow-up blood cultures are pending. He did have issues with abdominal distention. Follow-up computed tomography scan revealed loculated and non-loculated. Hepatic collections some of which demonstrate mildly thickened almeida with internal foci of air.. Hepatic abscesses are not excluded. Persistent dilatation of the small bowel small bowel wall thickening and inflammatory change in the interval colonic anastomotic site. Persistent postoperative ileus and/or obstructive change is not excluded. Adjacent drains in place. Leak is difficult to exclude. Small amount of free air persistent but improved. Chest x-ray reveals stable bilateral lower lobe infiltrate and small effusion. Left-sided PICC line remains in place. White count 16.0. Hemoglobin 9.1. Platelets 270. Sodium 136. Potassium 4.3. Bicarb 24. BUN 15. Creatinine 0.90. Glucose 124. He is continued on daptomycin and Zosyn. Continues to work with the incentive spirometer. Heparin for DVT prophylaxis. Being nourished with TPN at 108 ML's per hour. The patient is seen today 09/12/2022 in follow-up in the intensive care unit. He is currently resting comfortably in bed. Awake and alert in no acute distress. Maintaining O2 saturations in the 90s on room air. Working well with the incentive spirometer. He did undergo a a CT-guided abscess drainage of the liver yesterday with 100 purulent fluid removed. He also had several fransisca removed from his abdominal wound that drained fluid as well. Cultures are pending. A venous. Alissa fluid cultures were positive for E. coli, pseudomonas aeruginosa, enterococcus faecium. White count 12.8. He will been 8.8. Platelets 302. Sodium 135. Potassium 4.8. Bicarb 24. BUN 15. Creatinine 0.79. Glucose 149. He remains on TPN at 180 MLS per hour. Continued on Zosyn and daptomycin. The patient is seen today 09/13/2022 in follow-up in the intensive care unit. He remains awake and alert. Maintaining O2 saturations in the 90s on room air. Slightly febrile at 99.6. He is tachycardic. He has been having issues now with stool and air oozing from his abdominal surgical site. Apparently he had a coughing episode and had some dehiscence in the supraumbilical location. There is also air seen from the abdominal cavity coming to the staple line. Surgical services are following and plans for return to the OR this morning. His body fluid cultures had previously been positive for E. coli, pseudomonas aeruginosa, enterococcus facing him. Wound culture still positive with gram-negative bacilli. He's been continued on daptomycin and Zosyn. White count 17.9. Hemoglobin 9.0. Platelets 458. Sodium 134. Potassium 5.0. Bicarb 21. BUN 16. Creatinine 0.01. Glucose 136. He remains on TPN at 108 ML's per hour. Lipids on Wednesdays and Saturdays. Heparin for DVT prophylaxis. Dilaudid for pain control. The patient is seen today 09/14/2022 in follow-up in the intensive care unit. He did end up going back to surgery yesterday. This is quite extensive and lasting nearly 7 hours. He had undergone an exploratory laparotomy and extensive lysis of adhesions, resection of ilealcolic anastomosis, drainage of perihepatic loculated abscess with removal of CT-guided drain, small bowel resection for small bowel necrosis/perforation, placement of ileostomy, abdominal washout with 7 L of normal saline, debridement of abdominal wall midline incision, patient of the Moiz-Hanley in the right anterior lateral hepatic space, placement of Moiz-Hanley drain in the right pelvis, quarter-inch Don drain in the subcutaneous tissue midline incision and placement of Provena incisional wound VAC system. He was returned to the intensive care unit on the mechanical ventilator. Current settings are assist-control mode of 28, tidal volume 500, FiO2 40% and a PEEP of 5. Morning blood gases revealed a pO2 of 184, pCO2 of 41, pH 7.31 on 50% FiO2. White count 20.1. Hemoglobin 9.3. Platelets 41. Sodium 131. Potassium initially 6.6 corrected to 5.9, bicarb 20, BUN 32. Creatinine 2.15. Glucose 379. Magnesium 1.4. Chest x-ray reveals bibasilar atelectasis. No evidence of pneumothorax. Endotracheal and gastric tube secured in place. Left-sided PICC line in place. Follow-up abdominal wound culture positive for E. coli. He is currently on daptomycin and Zosyn. He is requiring pressor support currently on norepinephrine at 25 mcg/m. Vasopressin at 0.03 units per minute. Propofol at 50 mcg/kg/m. Nimbex at 1.5 mcg/kg/m. 0.9 normal saline at 50 MLS per hour. TPN at 108 ML's per hour and lipids for n ourishment. CVP of 10. He is status post 8 L of fluid resuscitation. Currently in a +8.6 L balance. Objective - Vital Signs Vital signs: Vital Signs Temp 99.5 F 09/14/22 08:00 Pulse 128 H 09/14/22 09:00 Resp 28 H 09/14/22 09:00 BP 130/73 09/14/22 09:00 Pulse Ox 96 09/14/22 09:00 FiO2 40 09/14/22 08:11 Intake & Output 09/13/22 09/14/22 09/14/22 18:59 06:59 18:59 Intake Total 5000 5948.759 1086.985 Output Total 800 1460 705 Balance 4200 4488.759 381.985 Intake: IV 5000 3937 837 DAPTOmycin 500 mg In 100 Sodium Chloride 0.9% 50 ml @ 100 mls/hr IVPB Q24HR [facility] Rx#:[id number] Fat Emulsion 20% 250 ml 189 21 In Empty Bag 1 bag @ 21 mls/hr IV [id number] [facility] Rx#:[id number] Magnesium Sulfate-D5w Pmx 100 1 gm In Dextrose/Water 1 100ml.bag @ 100 mls/hr IVPB ONCE ONE Rx#: [id number] Mvi, Adult No.4 with Vit 108 K 10 ml Trace (Conc-1Ml/ Dose) 1 ml Sodium Acetate 10 meq Potassium Acetate 20 meq Calcium Gluconate 1 gm Potassium Phosphate 15 mmol Magnesium Sulfate gm 0.25 gm In Amino Acids 5 %/Dextrose 20 % 1,000 ml @ 108 mls/ hr IV .BY DURATION [facility] Rx #:[id number] Mvi, Adult No.4 with Vit 540 K 10 ml Trace (Conc-1Ml/ Dose) 1 ml Sodium Acetate 40 meq Potassium Acetate 14 meq Calcium Gluconate 1 gm Potassium Phosphate 15 mmol Magnesium Sulfate gm 0.5 gm In Amino Acids 5 %/Dextrose 20 % 1,000 ml @ 108 mls/ hr IV .BY DURATION [facility] Rx #:[id number] Piperacillin-Tazobactam 3 200 100 .375 gm In Sodium Chloride 0.9% 100 ml @ 25 mls/hr IVPB Q8HR [facility] Rx# :[id number] Sodium Acetate 60 meq 216 Calcium Gluconate 1.5 gm Magnesium Sulfate gm 1 gm In Amino Acids 5 %/ Dextrose 20 % 1,000 ml @ 108 mls/hr IV .BY DURATION [facility] Rx#: [id number] Sodium Chloride 0.9% 1, 900 300 000 ml @ 150 mls/hr IV . Q6H40M [facility] Rx#:[id number] Sodium Chloride 0.9% 1, 2000 000 ml @ 999 mls/hr IV . Q1H1M [facility] Rx#:[id number] Intake, IV Titration 759 249.985 Amount ACETAMINOPHEN IV (For NPO 100 ) 1,000 mg In Empty Bag 1 bag @ 400 mls/hr IVPB Q6HR [facility] Rx#:[id number] Cisatracurium 200 mg In 165.148 80.325 Sodium Chloride 0.9% 180 ml @ 2 MCG/KG/MIN 12.852 mls/hr IV .[id number] [facility] Rx #:[id number] Mvi, Adult No.4 with Vit 216 K 10 ml Trace (Conc-1Ml/ Dose) 1 ml Sodium Acetate 40 meq Potassium Acetate 14 meq Calcium Gluconate 1 gm Potassium Phosphate 15 mmol Magnesium Sulfate gm 0.5 gm In Amino Acids 5 %/Dextrose 20 % 1,000 ml @ 108 mls/ hr IV .BY DURATION [facility] Rx #:[id number] Norepinephrine 8 mg In 672.662 169.660 Sodium Chloride 0.9% 250 ml @ 0.03 MCG/KG/MIN 6. 217 mls/hr IV .Q24H [facility] Rx#:[id number] Sodium Chloride 0.9% 1, 600 000 ml @ 150 mls/hr IV . Q6H40M [facility] Rx#:[id number] propofoL 1,000 mg In 257.949 Empty Bag 1 bag @ 15 MCG/ KG/MIN 9.639 mls/hr IV . [id number] [facility] Rx#:[id number] Output: Drainage 215 90 Left Lower Abdomen 215 70 Left Upper Abdomen 20 Urine 700 1245 615 Estimated Blood Loss 100 Other: Voiding Method Urinal Indwelling Catheter ABP, PAP, CO, CI - Last Documented Arterial Blood Pressure 129/75 - Exam GENERAL EXAM: Intubated, sedated 52-year-old male patient. HEAD: Normocephalic. EYES: Sluggish reaction of pupils, unequal size. NOSE: Oral endotracheal and gastric tube secured in place. Clear with pink turbinates. THROAT: No erythema or exudates. NECK: Left IJ triple-lumen catheter secured in place. No masses, no JVD. CHEST: No chest wall deformity. LUNGS: Equal air entry with bilateral scattered rhonchi. CVS: S1 and S2 normal with no audible murmur, regular rhythm. ABDOMEN: Midline incision with Prevena wound VAC in place, [address]. [address]ostomy [address] SPINE: No scoliosis or deformity SKIN: No rashes CENTRAL NERVOUS SYSTEM: Sedated, tone is normal in all 4 extremities. EXTREMITIES: Right radial arterial line secured in place. There is no peripheral edema. No clubbing, no cyanosis. Peripheral pulses are intact. - Labs CBC & Chem 7: 09/14/22 04:45 09/14/22 08:54 Labs: Abnormal Lab Results - Last 24 Hours (Table) 09/13/22 09/13/22 09/13/22 Range/Units 18:58 20:43 23:40 WBC (3.8-10.6) k/uL RBC (4.30-5.90) m/uL Hgb (13.0-17.5) gm/dL Hct (39.0-53.0) % Plt Count (150-450) k/uL Neutrophils # (1.3-7.7) k/uL Lymphocytes # (1.0-4.8) k/uL ABG pH 7.18 L* 7.25 L (7.35-7.45) ABG pCO2 59 H (35-45) mmHg ABG pO2 342 H (83-108) mmHg ABG HCO3 20 L (21-25) mmol/L ABG O2 Saturation 99.8 H 97.3 H (94-97) % Sodium (137-145) mmol/L Potassium (3.5-5.1) mmol/L Carbon Dioxide (22-30) mmol/L BUN (9-20) mg/dL Creatinine (0.66-1.25) mg/dL Glucose (74-99) mg/dL POC Glucose (mg/dL) 175 H (70-110) mg/dL Calcium (8.4-10.2) mg/dL Phosphorus (2.5-4.5) mg/dL Magnesium (1.6-2.3) mg/dL 09/14/22 09/14/22 09/14/22 Range/Units 04:45 04:45 04:45 WBC 20.1 H (3.8-10.6) k/uL RBC 3.43 L (4.30-5.90) m/uL Hgb 9.3 L (13.0-17.5) gm/dL Hct 29.3 L (39.0-53.0) % Plt Count 481 H (150-450) k/uL Neutrophils # 18.2 H (1.3-7.7) k/uL Lymphocytes # 0.8 L (1.0-4.8) k/uL ABG pH (7.35-7.45) ABG pCO2 (35-45) mmHg ABG pO2 (83-108) mmHg ABG HCO3 (21-25) mmol/L ABG O2 Saturation (94-97) % Sodium 131 L (137-145) mmol/L Potassium 6.6 H* (3.5-5.1) mmol/L Carbon Dioxide 20 L (22-30) mmol/L BUN 32 H (9-20) mg/dL Creatinine 2.15 H (0.66-1.25) mg/dL Glucose 379 H (74-99) mg/dL POC Glucose (mg/dL) (70-110) mg/dL Calcium 6.4 L* (8.4-10.2) mg/dL Phosphorus 5.2 H (2.5-4.5) mg/dL Magnesium 1.4 L (1.6-2.3) mg/dL 09/14/22 09/14/22 09/14/22 Range/Units 06:05 06:37 06:46 WBC (3.8-10.6) k/uL RBC (4.30-5.90) m/uL Hgb (13.0-17.5) gm/dL Hct (39.0-53.0) % Plt Count (150-450) k/uL Neutrophils # (1.3-7.7) k/uL Lymphocytes # (1.0-4.8) k/uL ABG pH 7.31 L (7.35-7.45) ABG pCO2 (35-45) mmHg ABG pO2 184 H (83-108) mmHg ABG HCO3 (21-25) mmol/L ABG O2 Saturation 99.4 H (94-97) % Sodium (137-145) mmol/L Potassium (3.5-5.1) mmol/L Carbon Dioxide (22-30) mmol/L BUN (9-20) mg/dL Creatinine (0.66-1.25) mg/dL Glucose (74-99) mg/dL POC Glucose (mg/dL) 434 H 402 H (70-110) mg/dL Calcium (8.4-10.2) mg/dL Phosphorus (2.5-4.5) mg/dL Magnesium (1.6-2.3) mg/dL 09/14/22 Range/Units 08:54 WBC (3.8-10.6) k/uL RBC (4.30-5.90) m/uL Hgb (13.0-17.5) gm/dL Hct (39.0-53.0) % Plt Count (150-450) k/uL Neutrophils # (1.3-7.7) k/uL Lymphocytes # (1.0-4.8) k/uL ABG pH (7.35-7.45) ABG pCO2 (35-45) mmHg ABG pO2 (83-108) mmHg ABG HCO3 (21-25) mmol/L ABG O2 Saturation (94-97) % Sodium (137-145) mmol/L Potassium 5.9 H (3.5-5.1) mmol/L Carbon Dioxide (22-30) mmol/L BUN (9-20) mg/dL Creatinine (0.66-1.25) mg/dL Glucose (74-99) mg/dL POC Glucose (mg/dL) (70-110) mg/dL Calcium (8.4-10.2) mg/dL Phosphorus (2.5-4.5) mg/dL Magnesium (1.6-2.3) mg/dL Microbiology - Last 24 Hours (Table) 09/11/22 19:00 Gram Stain - Final Abdomen Wound Culture - Final Escherichia coli 09/11/22 13:00 Gram Stain - Preliminary Aspirate Body Fluid Culture - Preliminary Gram Neg Bacilli 09/08/22 09:24 Blood Culture - Final Blood Assessment and Plan Assessment: Acute pneumoperitoneum, secondary to perforated colonic diverticulum and transverse colon. Status post robotic-assisted laparoscopy with extensive lysis of adhesions, right hemicolectomy and primary anastomosis and drainage of abdominal abscess abdominal peritoneal lavage and placement of SARAI drain as well as incisional wound VAC system on 09/04/2022. Follow-up computed tomography scan 09/10/2022 revealed loculated and non-loculated perihepatic collections some of which demonstrate mildly thickened almeida with internal foci of air. He patic abscesses are not excluded. Persistent dilatation of the small bowel small bowel wall thickening and inflammatory change in the interval colonic anastomotic site. Persistent postoperative ileus and/or obstructive change is not excluded. Adjacent drains in place. Leak is difficult to exclude. Small amount of free air persistent but improved. He did undergo a CT-guided catheter drainage of the liver abscess on 09/11/2022. Abdominal wound dehiscence with stool and air leak through the incision on 09/14/2022. He was returned to the operating room that same day and had undergone an exploratory laparotomy and extensive lysis of adhesions, resection of ilealcolic anastomosis, drainage of perihepatic loculated abscess with removal of CT-guided drain, small bowel resection for small bowel necrosis/perforation, placement of ileostomy, abdominal washout with 7 L of normal saline, debridement of abdominal wall midline incision, patient of the Moiz-Hanley in the right anterior lateral hepatic space, placement of Moiz- Hanley drain in the right pelvis, quarter-inch Don drain in the subcutaneous tissue midline incision and placement of Provena incisional wound VAC system. Severe abdominal sepsis secondary to E. coli, pseudomonas aeruginosa, enterococcus faecium. Remains on daptomycin and Zosyn. Septic shock secondary to above, currently requiring norepinephrine and vasopressin status post 8 L of fluid resuscitation Acute hypoxemic respiratory failure secondary to above currently requiring mechanical ventilation again following second surgery Febrile illness secondary to above Leukocytosis secondary to above Sinus tachycardia secondary to sepsis Acute kidney injury Acute lactic acidosis secondary to sepsis History of colon cancer status post robotic-assisted laparoscopic extended right hemicolectomy on 08/29/2022 Intra-abdominal abscess Abdominal ascites History of sarcoidosis Plan: The patient was seen and evaluated Chest x-ray, ABGs, labs and medications reviewed Titrate the FiO2 down to 40% Continue Zosyn, daptomycin Titrate the pressors as tolerated Remains sedated with propofol Remains paralyzed with Nimbex Being nourished with TPN/lipids Continue fluid resuscitation Continue to monitor CVP Follow-up chest x-ray, ABGs, labs in a.m. Prognosis is guarded We will continue to follow I have personally seen and examined the patient, performed the documentation and the assessment and plan as written. Number of minutes spent on the visit: 15.
[2022-09-14 11:16] LABS: Glucose,Whole Blood 397 mg/dL (70-110)
--- NOTE | 2022-09-14 11:30 | P.PN ---
Subjective Patient is seen for follow-up for acute kidney injury. Patient is currently on the vent. Yesterday patient was taken back to OR and had drainage of perihepatic abscess and small bowel resection for bowel necrosis and perforation, placement of ileos ishan, abdominal washout and debridement of abdominal wall midline incision. Patient remains hypotensive and is currently on levo fed and vasopressin. Levo fed dose has been decreased since this morning. Urine output currently at about 100 mL an hour Serum creatinine increased to 2.1 today and potassium was elevated at 6.6. Blood sugar was elevated at 434. Repeat potassium was 5.9 Urine output at about 100 mL an hour. Currently maintained on saline at 100 mL an hour Objective - Vital Signs Vital signs: Vital Signs Temp 99.5 F 09/14/22 08:00 Pulse 129 H 09/14/22 11:00 Resp 28 H 09/14/22 11:00 BP 130/73 09/14/22 09:00 Pulse Ox 97 09/14/22 11:00 FiO2 40 09/14/22 10:00 Intake & Output 09/13/22 09/14/22 09/14/22 18:59 06:59 18:59 Intake Total 5000 5948.759 1434.760 Output Total 800 1460 1055 Balance 4200 4488.759 379.760 Intake: IV 5000 3937 1095 DAPTOmycin 500 mg In 100 Sodium Chloride 0.9% 50 ml @ 100 mls/hr IVPB Q24HR [facility] Rx#:[id number] Fat Emulsion 20% 250 ml 189 21 In Empty Bag 1 bag @ 21 mls/hr IV WeSa@1800 [facility] Rx#:[id number] Magnesium Sulfate-D5w Pmx 100 1 gm In Dextrose/Water 1 100ml.bag @ 100 mls/hr IVPB ONCE ONE Rx#: [id number] Mvi, Adult No.4 with Vit 108 K 10 ml Trace (Conc-1Ml/ Dose) 1 ml Sodium Acetate 10 meq Potassium Acetate 20 meq Calcium Gluconate 1 gm Potassium Phosphate 15 mmol Magnesium Sulfate gm 0.25 gm In Amino Acids 5 %/Dextrose 20 % 1,000 ml @ 108 mls/ hr IV .BY DURATION [facility] Rx #:[id number] Mvi, Adult No.4 with Vit 540 K 10 ml Trace (Conc-1Ml/ Dose) 1 ml Sodium Acetate 40 meq Potassium Acetate 14 meq Calcium Gluconate 1 gm Potassium Phosphate 15 mmol Magnesium Sulfate gm 0.5 gm In Amino Acids 5 %/Dextrose 20 % 1,000 ml @ 108 mls/ hr IV .BY DURATION [facility] Rx #:[id number] Piperacillin-Tazobactam 3 200 100 .375 gm In Sodium Chloride 0.9% 100 ml @ 25 mls/hr IVPB Q8HR [facility] Rx# :[id number] Sodium Acetate 60 meq 324 Calcium Gluconate 1.5 gm Magnesium Sulfate gm 1 gm In Amino Acids 5 %/ Dextrose 20 % 1,000 ml @ 108 mls/hr IV .BY DURATION [facility] Rx#: [id number] Sodium Chloride 0.9% 1, 900 450 000 ml @ 150 mls/hr IV . Q6H40M [facility] Rx#:[id number] Sodium Chloride 0.9% 1, 2000 000 ml @ 999 mls/hr IV . Q1H1M [facility] Rx#:[id number] Intake, IV Titration 759 339.760 Amount ACETAMINOPHEN IV (For NPO 100 ) 1,000 mg In Empty Bag 1 bag @ 400 mls/hr IVPB Q6HR [facility] Rx#:[id number] Cisatracurium 200 mg In 165.148 80.325 Sodium Chloride 0.9% 180 ml @ 2 MCG/KG/MIN 12.852 mls/hr IV .[id number] [facility] Rx #:[id number] Mvi, Adult No.4 with Vit 216 K 10 ml Trace (Conc-1Ml/ Dose) 1 ml Sodium Acetate 40 meq Potassium Acetate 14 meq Calcium Gluconate 1 gm Potassium Phosphate 15 mmol Magnesium Sulfate gm 0.5 gm In Amino Acids 5 %/Dextrose 20 % 1,000 ml @ 108 mls/ hr IV .BY DURATION [facility] Rx #:[id number] Norepinephrine 8 mg In 672.662 208.435 Sodium Chloride 0.9% 250 ml @ 0.03 MCG/KG/MIN 6. 217 mls/hr IV .Q24H [facility] Rx#:[id number] Sodium Chloride 0.9% 1, 600 000 ml @ 150 mls/hr IV . Q6H40M [facility] Rx#:[id number] Vasopressin 20 unit In 51 Sodium Chloride 0.9% 50 ml @ 0.03 UNITS/MIN 4.59 mls/hr IV .Q11H7M [facility] Rx# :[id number] propofoL 1,000 mg In 257.949 Empty Bag 1 bag @ 15 MCG/ KG/MIN 9.639 mls/hr IV . [id number] [facility] Rx#:[id number] Output: Drainage 215 90 Left Lower Abdomen 215 70 Left Upper Abdomen 20 Urine 700 1245 965 Estimated Blood Loss 100 Other: Voiding Method Urinal Indwelling Catheter ABP, PAP, CO, CI - Last Documented Arterial Blood Pressure 125/68 - Exam Patient is intubated and on the vent Examination of the heart S1 and S2 Examination of the lungs bilateral breath sounds are heard Abdomen shows incision is dressed drains are noted, ileostomy present Examination of the lower extremities shows no edema - Labs CBC & Chem 7: 09/14/22 04:45 09/14/22 08:54 Labs: Abnormal Lab Results - Last 24 Hours (Table) 09/13/22 09/13/22 09/13/22 Range/Units 18:58 20:43 23:40 WBC (3.8-10.6) k/uL RBC (4.30-5.90) m/uL Hgb (13.0-17.5) gm/dL Hct (39.0-53.0) % Plt Count (150-450) k/uL Neutrophils # (1.3-7.7) k/uL Lymphocytes # (1.0-4.8) k/uL ABG pH 7.18 L* 7.25 L (7.35-7.45) ABG pCO2 59 H (35-45) mmHg ABG pO2 342 H (83-108) mmHg ABG HCO3 20 L (21-25) mmol/L ABG O2 Saturation 99.8 H 97.3 H (94-97) % Sodium (137-145) mmol/L Potassium (3.5-5.1) mmol/L Carbon Dioxide (22-30) mmol/L BUN (9-20) mg/dL Creatinine (0.66-1.25) mg/dL Glucose (74-99) mg/dL POC Glucose (mg/dL) 175 H (70-110) mg/dL Calcium (8.4-10.2) mg/dL Phosphorus (2.5-4.5) mg/dL Magnesium (1.6-2.3) mg/dL 09/14/22 09/14/22 09/14/22 Range/Units 04:45 04:45 04:45 WBC 20.1 H (3.8-10.6) k/uL RBC 3.43 L (4.30-5.90) m/uL Hgb 9.3 L (13.0-17.5) gm/dL Hct 29.3 L (39.0-53.0) % Plt Count 481 H (150-450) k/uL Neutrophils # 18.2 H (1.3-7.7) k/uL Lymphocytes # 0.8 L (1.0-4.8) k/uL ABG pH (7.35-7.45) ABG pCO2 (35-45) mmHg ABG pO2 (83-108) mmHg ABG HCO3 (21-25) mmol/L ABG O2 Saturation (94-97) % Sodium 131 L (137-145) mmol/L Potassium 6.6 H* (3.5-5.1) mmol/L Carbon Dioxide 20 L (22-30) mmol/L BUN 32 H (9-20) mg/dL Creatinine 2.15 H (0.66-1.25) mg/dL Glucose 379 H (74-99) mg/dL POC Glucose (mg/dL) (70-110) mg/dL Calcium 6.4 L* (8.4-10.2) mg/dL Phosphorus 5.2 H (2.5-4.5) mg/dL Magnesium 1.4 L (1.6-2.3) mg/dL 09/14/22 09/14/22 09/14/22 Range/Units 06:05 06:37 06:46 WBC (3.8-10.6) k/uL RBC (4.30-5.90) m/uL Hgb (13.0-17.5) gm/dL Hct (39.0-53.0) % Plt Count (150-450) k/uL Neutrophils # (1.3-7.7) k/uL Lymphocytes # (1.0-4.8) k/uL ABG pH 7.31 L (7.35-7.45) ABG pCO2 (35-45) mmHg ABG pO2 184 H (83-108) mmHg ABG HCO3 (21-25) mmol/L ABG O2 Saturation 99.4 H (94-97) % Sodium (137-145) mmol/L Potassium (3.5-5.1) mmol/L Carbon Dioxide (22-30) mmol/L BUN (9-20) mg/dL Creatinine (0.66-1.25) mg/dL Glucose (74-99) mg/dL POC Glucose (mg/dL) 434 H 402 H (70-110) mg/dL Calcium (8.4-10.2) mg/dL Phosphorus (2.5-4.5) mg/dL Magnesium (1.6-2.3) mg/dL 09/14/22 09/14/22 Range/Units 08:54 11:15 WBC (3.8-10.6) k/uL RBC (4.30-5.90) m/uL Hgb (13.0-17.5) gm/dL Hct (39.0-53.0) % Plt Count (150-450) k/uL Neutrophils # (1.3-7.7) k/uL Lymphocytes # (1.0-4.8) k/uL ABG pH (7.35-7.45) ABG pCO2 (35-45) mmHg ABG pO2 (83-108) mmHg ABG HCO3 (21-25) mmol/L ABG O2 Saturation (94-97) % Sodium (137-145) mmol/L Potassium 5.9 H (3.5-5.1) mmol/L Carbon Dioxide (22-30) mmol/L BUN (9-20) mg/dL Creatinine (0.66-1.25) mg/dL Glucose (74-99) mg/dL POC Glucose (mg/dL) 397 H (70-110) mg/dL Calcium (8.4-10.2) mg/dL Phosphorus (2.5-4.5) mg/dL Magnesium (1.6-2.3) mg/dL Microbiology - Last 24 Hours (Table) 09/11/22 19:00 Gram Stain - Final Abdomen Wound Culture - Final Escherichia coli 09/11/22 13:00 Gram Stain - Preliminary Aspirate Body Fluid Culture - Preliminary Gram Neg Bacilli 09/08/22 09:24 Blood Culture - Final Blood Assessment and Plan Assessment: 1. Acute kidney injury, nonoliguric ischemic ATN from hypotension and sepsis. Good urine output. 2. Intra-abdominal abscess status post explorative laparotomy and further colon resection and drainage of abscess with lysis of adhesions. Patient was taken back to or yesterday on 09/13/2022 and had further bowel resection and drainage of abscess and abdominal washout. 3. Colon cancer status post initial partial colectomy on 08/29/2022 4. Hyperkalemia associated with acute kidney injury and significant hyperglycemia. 5. Sepsis from intra-abdominal abscess Plan: Continue with saline Repeat potassium Control blood sugars
[2022-09-14 12:34] LABS: Glucose,Whole Blood 394 mg/dL (70-110)
--- NOTE | 2022-09-14 12:52 | P.PN ---
Subjective Progress Note Date: 09/14/22 This is a 52 year old male monitored in the intensive care unit postoperative day #4 lysis of adhesions and right hemicolectomy due to bowel perforation. Patient had end to end anastamosis. Has not had bowel movement, had KUB xray today showing multiple dilated small bowel loops possible ileus vs. obstruction. General surgery recommending patient to be NPO at this time. Heart rate remains elevated in the 120s and patient switched to IV lopressor. Remains on IV daptomycin and IV zosyn for positive peritoneal fluid culture with E. Coli, enterococcus and pseudomonas. Blood culture negative so far. Patient remains on D5 water at 100 mls/hr, sodium is slightly improved today down to 146. Continues on TPN, NG tube has been discontinued. Accuchecks switched to Q6h and small dose of levemir HS has been added. SARAI drain in place with serous drainage. Patient febrile today up to 101.9, encouraged to continue with incentive spirometer. Patient has wound vac in place to continuous suction, plan to ambulate around the room and up in the chair today. 09/09/2022 Patient is evaluated today in the ICU resting in bed. Alert x 3. Asking about discharge. Repeat blood culture is pending patient remains on IV antibiotics. White count up to 19.7 today. Patient reports BM yesterday and passing some gas today. Abdomen is more distended. Surgery recommending NG tube today. Patient remains NPO. Midline incisional wound vac in place. Patient remains with fever, using incentive spirometer reaching 1200. Continues on TPN. 09/10/2022 Patient remains in the intensive care unit. Patient continues to be NPO. 3 attempts were made to pass NG tube and were unsuccessful. Patient did have 2 BMs yesterday, abdomen remains significantly distended. Repeat abdominal pelvis CT reveals loculated and nonloculated perihepatic collections some of which demonstrate mildly thickened almeida with internal foci of air. Perihepatic abscesses are not excluded. Persistent dilation of small bowel with small bowel wall thickening and inflammatory change at the enterocolonic anastomotic site. Persistent postoperative ileus and/or obstructive changes not excluded. Adjacent drain is in place. Contrast does not opacify the anastomotic site and therefore leak is difficult to evaluate or exclude. Small amt of free air persists improved from prior study. White count 18.3 today, electrolytes are normalized and blood glucose improved to 115. Patient remains on TPN. Blood culture remains negative. Remains on IV zosyn and IV daptomycin. Temp of 100.4 and remains tachycardic 121, blood pressure stable at 131/94. 09/11/2022 Patient is evaluated today in the intensive care unit. Remains tachycardic and T-Max of 100.7 overnight. Scheduled to undergo drainage and placement of drainage tube to the perihepatic abscess noted on CT imaging with IR today. White count down to 16.0 today. Continues on IV daptoymcin and IV vancomycin. Per nursing did have a small BM overnight. 09/12/2022 Patient evaluated today in the intensive care unit. Underwent CT guided abscess drainage with 100 mls of purulent drainage and also had midline fransisca removed at the top of incision with some purulent drainage. Patients white count is down to 12.8 today. Kidney function stable, sodium 135 today. Patient has been cleared to start diet, having small BMs. Metoprolol will be changed to oral. Fever is improving. Cultures are pending from the abscess and ID is following closely. 09/13/2022 Patient continues to be monitored closely in the intensive care unit. Patient continues with significant tachycardia not improving with metoprolol and continues with abdominal distention. Cardiology was placed on consultation for the tachycardia and patient has been transitioned back to IV lopressor. Wound cultures from the CT guided are showing gram negative bacilli. This morning per nursing the abdomen was more distended and patient had felt a popping sensation with evidence of leaking of brown colored drainage from the surgical incision a nd the drainage bag. The surgical incision was opened yesterday at the bedside by surgery. Patient was taken for emergent exploratory laporotomy. White count is 17.9 today, sodium 134, potassium 5.0. Kidney function remains stable. Patient has been continued to be NPO no NG tube present. Labs and vitals reviewed. 09/14/2022 Patient is evaluated today he is currently in the intensive care unit intubated and sedated he is on combination of nimbex and propofol. Patient is currently on the mechanical ventilator with 40% FiO2. Patient is also requiring levophed and vasopression. Patient continues on IV daptomycin and IV zosyn. The wound culture shows E.Coli. Patient underwent extensive exploratory laporotomy yesterday with lysis of adhesions, resection of the ileocolic anastamosis due to anastomotic leak, small bowel resection for small bowel necrosis/peforation with placement of ileostomy. Patient had nataliia-stone drain x 2 placed and alpa drain placed. Abdomen was closed with a wound vac. Temp is T-max 100.4 today. Labs reveal white count of 20.1, hgb 9.3, sodium 131, potassium at 6.6 and 5.9, BUN 32, creatinine 2.15, blood glucose 394, calcium 6.4, magnesium 1.4. Patient received IV magnesium, IV gluconate, and IV insulin humulin N. Unable to complete review of systems patient is currently intubated and sedated in in the ICU PHYSICAL EXAMINATION: GENERAL: Currently intubated and sedated, not in any acute distress. Well developed, well nourished. HEENT: Pupils are round and equally reacting to light. EOMI. No scleral icterus. No conjunctival pallor. Normocephalic, atraumatic. No pharyngeal erythema. No thyromegaly. CARDIOVASCULAR: S1 and S2 present. No murmurs, rubs, or gallops. Tachycardic. PULMONARY: Chest is clear to auscultation, no wheezing or crackles. Diminished. ABDOMEN: Soft, Postsurgical drain x 3 present midline wound vac. ileostomy. distended, No bowel sounds. No palpable organomegaly. MUSCULOSKELETAL: No joint swelling or deformity. EXTREMITIES: No cyanosis, clubbing, or pedal edema. NEUROLOGICAL: Unable to complete physical exam patient is currently intubated and sedated. SKIN: No rashes. Assessment Sepsis secondary to perforated diverticulum postoperative day #10 evacuation of abscess, lysis of adhesions, right hemicolectomy. -Postoperative day #1 lysis of adhesions, resection of ileocolic anastamosis due to anastomotic leak, small bowel resection for small bowel necrosis/perforation and placement of ileostomy. Status post CT guided drainage of abscess on 09/11/22 cultures showing E.Coli. Postoperative ileus Fever and persistent sinus tachycardia due to septic shock patient is no vasopressin and levophed currently Colon cancer s/p resection on 08/29/2022 Acute kidney injury secondary to ATN and sepsis improved and worsened creatinine now 2.15 Hyperkalemia Hyperglycemia Leukocytosis Hypernatremia resolved Hx hyperlipidemia Sarcoidosis with asthma Nicotine use GI prophylaxis DVT prophylaxis Full Code Plan Continue IV antibiotics, infectious disease following closely Patient continues to be febrile and blood cultures have been repeated and pending negative so far Continue CBG Q6h hour and novolog s/s q6h. scheduled insulin added and levemir is increased patient may require insulin gtt. Cardiology following IV lopressor discontinued at this time. Follow up AM labs. Family at the bedside all questions answered. The impression and plan of care has been dictated by Misty Fairchild, Nurse Practitioner as directed. Dr. Kai MD I have performed a history and physical examination and medical decision making of this patient, discussed the same with the dictator, and agree with the dictators assessment and plan as written, documented as a scribe. Based on total visit time, I have performed more than 50% of this visit. Objective - Vital Signs Vital signs: Vital Signs Temp 99.5 F 09/14/22 08:00 Pulse 130 H 09/14/22 11:36 Resp 28 H 09/14/22 11:00 BP 130/73 09/14/22 09:00 Pulse Ox 97 09/14/22 11:00 FiO2 40 09/14/22 11:27 Intake & Output 09/13/22 09/14/22 09/14/22 18:59 06:59 18:59 Intake Total 5000 5948.759 1534.760 Output Total 800 1460 1055 Balance 4200 4488.759 479.760 Intake: IV 5000 3937 1095 DAPTOmycin 500 mg In 100 Sodium Chloride 0.9% 50 ml @ 100 mls/hr IVPB Q24HR [facility] Rx#:[id number] Fat Emulsion 20% 250 ml 189 21 In Empty Bag 1 bag @ 21 mls/hr IV [id number] [facility] Rx#:[id number] Magnesium Sulfate-D5w Pmx 100 1 gm In Dextrose/Water 1 100ml.bag @ 100 mls/hr IVPB ONCE ONE Rx#: [id number] Mvi, Adult No.4 with Vit 108 K 10 ml Trace (Conc-1Ml/ Dose) 1 ml Sodium Acetate 10 meq Potassium Acetate 20 meq Calcium Gluconate 1 gm Potassium Phosphate 15 mmol Magnesium Sulfate gm 0.25 gm In Amino Acids 5 %/Dextrose 20 % 1,000 ml @ 108 mls/ hr IV .BY DURATION [facility] Rx #:[id number] Mvi, Adult No.4 with Vit 540 K 10 ml Trace (Conc-1Ml/ Dose) 1 ml Sodium Acetate 40 meq Potassium Acetate 14 meq Calcium Gluconate 1 gm Potassium Phosphate 15 mmol Magnesium Sulfate gm 0.5 gm In Amino Acids 5 %/Dextrose 20 % 1,000 ml @ 108 mls/ hr IV .BY DURATION [facility] Rx #:[id number] Piperacillin-Tazobactam 3 200 100 .375 gm In Sodium Chloride 0.9% 100 ml @ 25 mls/hr IVPB Q8HR [facility] Rx# :[id number] Sodium Acetate 60 meq 324 Calcium Gluconate 1.5 gm Magnesium Sulfate gm 1 gm In Amino Acids 5 %/ Dextrose 20 % 1,000 ml @ 108 mls/hr IV .BY DURATION [facility] Rx#: [id number] Sodium Chloride 0.9% 1, 900 450 000 ml @ 150 mls/hr IV . Q6H40M [facility] Rx#:[id number] Sodium Chloride 0.9% 1, 2000 000 ml @ 999 mls/hr IV . Q1H1M [facility] Rx#:[id number] Intake, IV Titration 759 439.760 Amount ACETAMINOPHEN IV (For NPO 100 ) 1,000 mg In Empty Bag 1 bag @ 400 mls/hr IVPB Q6HR [facility] Rx#:[id number] Cisatracurium 200 mg In 165.148 80.325 Sodium Chloride 0.9% 180 ml @ 2 MCG/KG/MIN 12.852 mls/hr IV .[id number] [facility] Rx #:[id number] Mvi, Adult No.4 with Vit 216 K 10 ml Trace (Conc-1Ml/ Dose) 1 ml Sodium Acetate 40 meq Potassium Acetate 14 meq Calcium Gluconate 1 gm Potassium Phosphate 15 mmol Magnesium Sulfate gm 0.5 gm In Amino Acids 5 %/Dextrose 20 % 1,000 ml @ 108 mls/ hr IV .BY DURATION [facility] Rx #:[id number] Norepinephrine 8 mg In 672.662 208.435 Sodium Chloride 0.9% 250 ml @ 0.03 MCG/KG/MIN 6. 217 mls/hr IV .Q24H [facility] Rx#:[id number] Sodium Chloride 0.9% 1, 600 000 ml @ 150 mls/hr IV . Q6H40M [facility] Rx#:[id number] Vasopressin 20 unit In 51 Sodium Chloride 0.9% 50 ml @ 0.03 UNITS/MIN 4.59 mls/hr IV .Q11H7M [facility] Rx# :[id number] propofoL 1,000 mg In 257.949 100 Empty Bag 1 bag @ 15 MCG/ KG/MIN 9.639 mls/hr IV . [id number] [facility] Rx#:[id number] Output: Drainage 215 90 Left Lower Abdomen 215 70 Left Upper Abdomen 20 Urine 700 1245 965 Estimated Blood Loss 100 Other: Voiding Method Urinal Indwelling Catheter ABP, PAP, CO, CI - Last Documented Arterial Blood Pressure 125/68 - Labs CBC & Chem 7: 09/14/22 04:45 09/14/22 08:54 Labs: Abnormal Lab Results - Last 24 Hours (Table) 09/13/22 09/13/22 09/13/22 Range/Units 18:58 20:43 23:40 WBC (3.8-10.6) k/uL RBC (4.30-5.90) m/uL Hgb (13.0-17.5) gm/dL Hct (39.0-53.0) % Plt Count (150-450) k/uL Neutrophils # (1.3-7.7) k/uL Lymphocytes # (1.0-4.8) k/uL ABG pH 7.18 L* 7.25 L (7.35-7.45) ABG pCO2 59 H (35-45) mmHg ABG pO2 342 H (83-108) mmHg ABG HCO3 20 L (21-25) mmol/L ABG O2 Saturation 99.8 H 97.3 H (94-97) % Sodium (137-145) mmol/L Potassium (3.5-5.1) mmol/L Carbon Dioxide (22-30) mmol/L BUN (9-20) mg/dL Creatinine (0.66-1.25) mg/dL Glucose (74-99) mg/dL POC Glucose (mg/dL) 175 H (70-110) mg/dL Calcium (8.4-10.2) mg/dL Phosphorus (2.5-4.5) mg/dL Magnesium (1.6-2.3) mg/dL 09/14/22 09/14/22 09/14/22 Range/Units 04:45 04:45 04:45 WBC 20.1 H (3.8-10.6) k/uL RBC 3.43 L (4.30-5.90) m/uL Hgb 9.3 L (13.0-17.5) gm/dL Hct 29.3 L (39.0-53.0) % Plt Count 481 H (150-450) k/uL Neutrophils # 18.2 H (1.3-7.7) k/uL Lymphocytes # 0.8 L (1.0-4.8) k/uL ABG pH (7.35-7.45) ABG pCO2 (35-45) mmHg ABG pO2 (83-108) mmHg ABG HCO3 (21-25) mmol/L ABG O2 Saturation (94-97) % Sodium 131 L (137-145) mmol/L Potassium 6.6 H* (3.5-5.1) mmol/L Carbon Dioxide 20 L (22-30) mmol/L BUN 32 H (9-20) mg/dL Creatinine 2.15 H (0.66-1.25) mg/dL Glucose 379 H (74-99) mg/dL POC Glucose (mg/dL) (70-110) mg/dL Calcium 6.4 L* (8.4-10.2) mg/dL Phosphorus 5.2 H (2.5-4.5) mg/dL Magnesium 1.4 L (1.6-2.3) mg/dL 09/14/22 09/14/22 09/14/22 Range/Units 06:05 06:37 06:46 WBC (3.8-10.6) k/uL RBC (4.30-5.90) m/uL Hgb (13.0-17.5) gm/dL Hct (39.0-53.0) % Plt Count (150-450) k/uL Neutrophils # (1.3-7.7) k/uL Lymphocytes # (1.0-4.8) k/uL ABG pH 7.31 L (7.35-7.45) ABG pCO2 (35-45) mmHg ABG pO2 184 H (83-108) mmHg ABG HCO3 (21-25) mmol/L ABG O2 Saturation 99.4 H (94-97) % Sodium (137-145) mmol/L Potassium (3.5-5.1) mmol/L Carbon Dioxide (22-30) mmol/L BUN (9-20) mg/dL Creatinine (0.66-1.25) mg/dL Glucose (74-99) mg/dL POC Glucose (mg/dL) 434 H 402 H (70-110) mg/dL Calcium (8.4-10.2) mg/dL Phosphorus (2.5-4.5) mg/dL Magnesium (1.6-2.3) mg/dL 09/14/22 09/14/22 Range/Units 08:54 11:15 WBC (3.8-10.6) k/uL RBC (4.30-5.90) m/uL Hgb (13.0-17.5) gm/dL Hct (39.0-53.0) % Plt Count (150-450) k/uL Neutrophils # (1.3-7.7) k/uL Lymphocytes # (1.0-4.8) k/uL ABG pH (7.35-7.45) ABG pCO2 (35-45) mmHg ABG pO2 (83-108) mmHg ABG HCO3 (21-25) mmol/L ABG O2 Saturation (94-97) % Sodium (137-145) mmol/L Potassium 5.9 H (3.5-5.1) mmol/L Carbon Dioxide (22-30) mmol/L BUN (9-20) mg/dL Creatinine (0.66-1.25) mg/dL Glucose (74-99) mg/dL POC Glucose (mg/dL) 397 H (70-110) mg/dL Calcium (8.4-10.2) mg/dL Phosphorus (2.5-4.5) mg/dL Magnesium (1.6-2.3) mg/dL Microbiology - Last 24 Hours (Table) 09/11/22 19:00 Gram Stain - Final Abdomen Wound Culture - Final Escherichia coli 09/11/22 13:00 Gram Stain - Preliminary Aspirate Body Fluid Culture - Preliminary Gram Neg Bacilli 09/08/22 09:24 Blood Culture - Final Blood Assessment and Plan Time with Patient: Greater than 30
[2022-09-14] MEDS ORDERED: ARTIFICIAL TEARS-HYPROMELLOSE DROPS 15 ML BTL BOTH EYES PRN (16:00)
[2022-09-14] MEDS: ARTIFICIAL TEARS-HYPROMELLOSE DROPS 15 ML BTL BOTH EYES SCH ×3 (17:01→20:47)
[2022-09-14 17:15] LABS: Glucose,Whole Blood 360 mg/dL (70-110)
--- NOTE | 2022-09-14 20:15 | P.PN ---
Subjective Progress Note Date: 09/07/22 52-year-old male who presents with initial ileus versus bowel obstruction and pneumoperitoneum from recent surgery. Patient had a nasogastric tube and reported he felt well to want to go home. Patient was encouraged to stay with continued observation. He developed fevers and persistently elevated supra ventricular tachycardia heart rate of 140s with worsening abdominal distention. Clinically, patient reported he wasn't feeling well. Emergent exploratory procedure-- Robotic-assisted da Philipp Xi laparoscopic extensive lysis of adhesions; Open exploratory laparotomy with right hemicolectomy and primary anastomosis; Drainage of intra-abdominal abscess; Abdominal peritoneal lavage Patient has continued to have sinus tachycardia with heart rates in the 100-120 range. He was started on low-dose metoprolol however currently intubated and sedated and not taking oral pills. FiO2 40% and appears comfortable on ventilator. Respiratory therapies at bedside and preparing to extubate patient 09/06/2022 patient remains in the ICU, patient was extubated yesterday and he tolerated extubation well over the last 24 hours. He is on 2 L nasal cannula, not in any distress. Continues to have significant nasogastric output. Patient is to be started on TPN today. Doing better than expected overall. Remains on antibiotics for his abdominal sepsis. White count is 11.8 today hemoglobin is 9.6. Elect lites are normal renal profile is normal with a creatinine of 1.14, improving since admission from 2.14 on admission. Patient is compliant with his incentive spirometry. Intensive care team on board and recommending to continue incentive spirometry, antibiotics, NG tube to suction, nutritional support with TPN Patient is recommended to be monitored in ICU for another 24 hours 09/07/2022 1patient with sepsis in this patient who did have a fever tachycardia elevated white count source is intra-abdominal in this patient with evidence of colonic diverticular perforation intra-abdominal abscess status post laparotomy drainage of the abscess and primary anastomosis , cultures growing gram negative with ID pending 2-patient to continue the Zosyn 3.375 g every 8 while waiting for the cultures to finalize Objective - Vital Signs Vital signs: Vital Signs Temp 100 F H 09/07/22 04:00 Pulse 113 H 09/07/22 07:00 Resp 24 09/07/22 07:00 BP 136/99 09/07/22 07:00 Pulse Ox 97 09/07/22 07:00 FiO2 40 09/05/22 12:00 Intake & Output 09/06/22 09/07/22 09/07/22 18:59 06:59 18:59 Intake Total 1300 1730 130 Output Total 1550 1125 50 Balance -250 605 80 Weight 104.2 kg 105.8 kg Intake: IV 1300 1200 100 Piperacillin-Tazobactam 3 100 .375 gm In Sodium Chloride 0.9% 100 ml @ 25 mls/hr IVPB Q8HR [facility] Rx# :[id number] Sodium Chloride 0.9% 1, 1200 1200 100 000 ml @ 100 mls/hr IV . Q10H [facility] Rx#:[id number] Intake, IV Titration 530 30 Amount ACETAMINOPHEN IV (For NPO 100 ) 1,000 mg In Empty Bag 1 bag @ 400 mls/hr IVPB Q6HR [facility] Rx#:[id number] Mvi, Adult No.4 with Vit 330 30 K 10 ml Trace (Conc-1Ml/ Dose) 1 ml Sodium Chloride 4Meq/ml Vial 10 meq Potassium Acetate 30 meq Calcium Gluconate 1 gm Sodium Phosphate 15 mmol In Amino Acids 5 %/ Dextrose 20 % 1,000 ml @ 108 mls/hr IV .BY DURATION [facility] Rx#: [id number] Piperacillin-Tazobactam 3 100 .375 gm In Sodium Chloride 0.9% 100 ml @ 25 mls/hr IVPB Q8HR [facility] Rx# :[id number] Output: Gastric Drainage 150 Urine 1400 1125 50 Other: Voiding Method Indwelling Catheter Indwelling Catheter ABP, PAP, CO, CI - Last Documented Arterial Blood Pressure 158/44 - Exam PHYSICAL EXAMINATION: GENERAL: The patient is alert and oriented x3, not in any acute distress. Well developed, well nourished. HEENT: Pupils are round and equally reacting to light. EOMI. No scleral icterus. No conjunctival pallor. Normocephalic, atraumatic. No pharyngeal erythema. No thyromegaly. CARDIOVASCULAR: S1 and S2 present. No murmurs, rubs, or gallops. PULMONARY: Chest is clear to auscultation, no wheezing or crackles. ABDOMEN: Soft, nontender, nondistended, normoactive bowel sounds. No palpable organomegaly. MUSCULOSKELETAL: No joint swelling or deformity. EXTREMITIES: No cyanosis, clubbing, or pedal edema. NEUROLOGICAL: Gross neurological examination did not reveal any focal deficits. SKIN: No rashes. - Labs CBC & Chem 7: 09/14/22 04:45 09/14/22 14:45 Labs: Abnormal Lab Results - Last 24 Hours (Table) 09/06/22 09/06/22 09/06/22 Range/Units 12:03 12:03 23:39 Sodium (137-145) mmol/L Chloride (98-107) mmol/L BUN (9-20) mg/dL Glucose (74-99) mg/dL POC Glucose (mg/dL) 130 H (70-110) mg/dL Calcium (8.4-10.2) mg/dL Phosphorus 2.4 L (2.5-4.5) mg/dL Magnesium 2.8 H (1.6-2.3) mg/dL Total Protein (6.3-8.2) g/dL Albumin (3.5-5.0) g/dL Triglycerides 450.00 H (0.00-149.00) mg/dL 09/07/22 09/07/22 Range/Units 05:43 06:35 Sodium 149 H (137-145) mmol/L Chloride 117 H (98-107) mmol/L BUN 21 H (9-20) mg/dL Glucose 136 H (74-99) mg/dL POC Glucose (mg/dL) 137 H (70-110) mg/dL Calcium 7.7 L (8.4-10.2) mg/dL Phosphorus (2.5-4.5) mg/dL Magnesium 2.7 H (1.6-2.3) mg/dL Total Protein 5.0 L (6.3-8.2) g/dL Albumin 2.5 L (3.5-5.0) g/dL Triglycerides (0.00-149.00) mg/dL Microbiology - Last 24 Hours (Table) 09/04/22 19:50 Gram Stain - Preliminary Peritoneal Fluid Body Fluid Culture - Preliminary Gram Neg Bacilli 09/04/22 18:21 Blood Culture - Preliminary Blood Assessment and Plan Assessment: Sinus tachycardia -- Start patient on low-dose beta igor with Lopressor 12.5 mg twice daily -- Obtain 2-D echocardiogram and Doppler study to assess cardiac structure and function - Obtain TSH Lactic acidosis and Sepsis/ intra-abdominal - Intra-abdominal abscess status post explorative laparotomy and further colon resection and drainage of abscess with lysis of adhesions -- Colon cancer status post initial partial colectomy on 08/29/2022 - Patient remains on IV Zosyn 3.375 g IV every 8 hours with IV vancomycin with pharmacy dosing service Acute kidney injury -nonoliguric ischemic ATN from hypotension and sepsis. Renal function is improving. UA is quite benign --Continue with IV fluids --Monitor vancomycin levels closely -- Avoid any other nephrotoxic agents. Recent right hemicolectomy for cecal colon cancer --Colon cancer status post initial partial colectomy on 08/29/2022 Sarcoidosis with asthma DVT prophylaxis; SCDs/subcu heparin CODE STATUS; full code
--- NOTE | 2022-09-14 22:01 | P.PN ---
Subjective Progress Note Date: 09/13/22 Principal diagnosis: Intra-abdominal abscess Patient is a 52-year-old male presenting to the hospital with abdominal pain has been diagnosed with an intra-abdominal abscess from perforated diverticulum status post laparotomy and drainage of the abscess. Patient is status post IR drainage of perihepatic abscess completed on 09/11/2022 n today's evaluation that is 09/13/2022, the patient did spike a fever 100.7F this morning, the patient did have an episode of coughing subsequently noticed to have dehiscence of his abdominal wound patient was taken back to the OR and the patient is status post extensive surgery afterwards the patient had been sent back to the ICU on a vent currently on pressor support patient is sedated on the vent and unable to provide any history Objective - Vital Signs Vital signs: Vital Signs Temp 100.7 F H 09/13/22 08:00 Pulse 122 H 09/13/22 08:00 Resp 18 09/13/22 08:00 BP 122/62 09/13/22 08:00 Pulse Ox 97 09/13/22 08:38 FiO2 40 09/05/22 12:00 Intake & Output 09/12/22 09/13/22 09/13/22 18:59 06:59 18:59 Intake Total 4437.5 1396 300 Output Total 1560 2200 400 Balance 2877.5 -804 -100 Weight 107.1 kg Intake: IV 1564 100 300 Mvi, Adult No.4 with Vit 1364 K 10 ml Trace (Conc-1Ml/ Dose) 1 ml Sodium Acetate 10 meq Potassium Acetate 20 meq Calcium Gluconate 1 gm Potassium Phosphate 15 mmol Magnesium Sulfate gm 0.25 gm In Amino Acids 5 %/Dextrose 20 % 1,000 ml @ 108 mls/ hr IV .BY DURATION [facility] Rx #:[id number] Piperacillin-Tazobactam 3 200 100 .375 gm In Sodium Chloride 0.9% 100 ml @ 25 mls/hr IVPB Q8HR [facility] Rx# :[id number] Intake, IV Titration 2323.5 1296 Amount DAPTOmycin 500 mg In 100 Sodium Chloride 0.9% 50 ml @ 100 mls/hr IVPB Q24HR [facility] Rx#:[id number] Mvi, Adult No.4 with Vit 1188 1296 K 10 ml Trace (Conc-1Ml/ Dose) 1 ml Sodium Acetate 20 meq Potassium Acetate 20 meq Calcium Gluconate 1 gm Potassium Phosphate 15 mmol Magnesium Sulfate gm 0.4 gm In Amino Acids 5 %/Dextrose 20 % 1,000 ml @ 108 mls/ hr IV .BY DURATION [facility] Rx #:[id number] Sodium Acetate 20 meq 1035.5 Potassium Acetate 20 meq Calcium Gluconate 1 gm Potassium Phosphate 15 mmol Magnesium Sulfate gm 0.25 gm In Amino Acids 5 %/Dextrose 20 % 1,000 ml @ 108 mls/hr IV .BY DURATION [facility] Rx#: [id number] Oral 550 Output: Drainage 60 Right Upper Abdomen 60 Urine 1500 2200 400 Other: Voiding Method Urinal Urinal Urinal # Voids 3 # Bowel Movements 1 ABP, PAP, CO, CI - Last Documented Arterial Blood Pressure 158/44 - Labs CBC & Chem 7: 09/14/22 04:45 09/14/22 14:45 Labs: Abnormal Lab Results - Last 24 Hours (Table) 09/12/22 09/12/22 09/13/22 Range/Units 16:47 23:51 04:18 WBC (3.8-10.6) k/uL RBC (4.30-5.90) m/uL Hgb (13.0-17.5) gm/dL Hct (39.0-53.0) % Plt Count (150-450) k/uL Sodium 134 L (137-145) mmol/L Carbon Dioxide 21 L (22-30) mmol/L Glucose 136 H (74-99) mg/dL POC Glucose (mg/dL) 154 H 140 H (70-110) mg/dL 09/13/22 Range/Units 04:18 WBC 17.9 H (3.8-10.6) k/uL RBC 3.30 L (4.30-5.90) m/uL Hgb 9.0 L (13.0-17.5) gm/dL Hct 28.1 L (39.0-53.0) % Plt Count 458 H (150-450) k/uL Sodium (137-145) mmol/L Carbon Dioxide (22-30) mmol/L Glucose (74-99) mg/dL POC Glucose (mg/dL) (70-110) mg/dL Microbiology - Last 24 Hours (Table) 09/11/22 13:00 Gram Stain - Preliminary Aspirate Body Fluid Culture - Preliminary Gram Neg Bacilli 09/11/22 19:00 Wound Culture - Preliminary Abdomen Gram Neg Bacilli Assessment and Plan (1) Intra-abdominal abscess Current Visit: Yes Status: Acute Code(s): K65.1 - PERITONEAL ABSCESS SNOMED Code(s): 95821468 Plan: 1patient with sepsis in this patient who did have a fever tachycardia elevated white count source is intra-abdominal in this patient with evidence of colonic diverticular perforation intra-abdominal abscess status post laparotomy drainage of the abscess and primary anastomosis , cultures growing E. coli Pseudomonas and Enterococcus faecium with sensitivities pending. 2patient with fever and elevated white count concerning for perihepatic abscess, the patient is status post CT-guided drainage culture has been obtained which are currently pending 3-patient now with bowl perforation from small bowel necrosis status post extensive abdominal surgery lysis of adhesion and creation of ileostomy cultures has been obtained and those will be followed continue the Zosyn and daptomycin at this point prognosis remains regarding Time with Patient: Less than 30
--- NOTE | 2022-09-14 22:05 | P.PN ---
Subjective Progress Note Date: 09/14/22 Principal diagnosis: Intra-abdominal abscess Patient is a 52-year-old male presenting to the hospital with abdominal pain has been diagnosed with an intra-abdominal abscess from perforated diverticulum status post laparotomy and drainage of the abscess. Patient is status post IR drainage of perihepatic abscess completed on 09/11/2022, Patient was taken back to the OR on 09/13/2022 for small bowel necrosis and perforation, the patient is status post exploration laparotomy and lysis of addition resection of the ileocolonic anastomosis and drainage of the perihepatic local area abscess small bowel resection and creation of ileostomy on today's evaluation that is 09/14/2022, the patient did spike a fever 100.4F this morning, the patient is currently requiring pressor support however overall amount of the pressor is trending down per the nursing staff the patient is on the vent and FiO2 50% he did have NG for suction no output in ileostomy Objective - Vital Signs Vital signs: Vital Signs Temp 99.3 F 09/14/22 12:00 Pulse 130 H 09/14/22 15:00 Resp 28 H 09/14/22 15:00 BP 130/73 09/14/22 09:00 Pulse Ox 97 09/14/22 15:00 FiO2 40 09/14/22 11:27 Intake & Output 09/13/22 09/14/22 09/14/22 18:59 06:59 18:59 Intake Total 5000 5948.759 1786.091 Output Total 800 1460 1055 Balance 4200 4488.759 731.091 Intake: IV 5000 3937 1095 DAPTOmycin 500 mg In 100 Sodium Chloride 0.9% 50 ml @ 100 mls/hr IVPB Q24HR [facility] Rx#:[id number] Fat Emulsion 20% 250 ml 189 21 In Empty Bag 1 bag @ 21 mls/hr IV [id number] [facility] Rx#:[id number] Magnesium Sulfate-D5w Pmx 100 1 gm In Dextrose/Water 1 100ml.bag @ 100 mls/hr IVPB ONCE ONE Rx#: [id number] Mvi, Adult No.4 with Vit 108 K 10 ml Trace (Conc-1Ml/ Dose) 1 ml Sodium Acetate 10 meq Potassium Acetate 20 meq Calcium Gluconate 1 gm Potassium Phosphate 15 mmol Magnesium Sulfate gm 0.25 gm In Amino Acids 5 %/Dextrose 20 % 1,000 ml @ 108 mls/ hr IV .BY DURATION [facility] Rx #:[id number] Mvi, Adult No.4 with Vit 540 K 10 ml Trace (Conc-1Ml/ Dose) 1 ml Sodium Acetate 40 meq Potassium Acetate 14 meq Calcium Gluconate 1 gm Potassium Phosphate 15 mmol Magnesium Sulfate gm 0.5 gm In Amino Acids 5 %/Dextrose 20 % 1,000 ml @ 108 mls/ hr IV .BY DURATION [facility] Rx #:[id number] Piperacillin-Tazobactam 3 200 100 .375 gm In Sodium Chloride 0.9% 100 ml @ 25 mls/hr IVPB Q8HR [facility] Rx# :[id number] Sodium Acetate 60 meq 324 Calcium Gluconate 1.5 gm Magnesium Sulfate gm 1 gm In Amino Acids 5 %/ Dextrose 20 % 1,000 ml @ 108 mls/hr IV .BY DURATION [facility] Rx#: [id number] Sodium Chloride 0.9% 1, 900 450 000 ml @ 150 mls/hr IV . Q6H40M [facility] Rx#:[id number] Sodium Chloride 0.9% 1, 2000 000 ml @ 999 mls/hr IV . Q1H1M [facility] Rx#:[id number] Intake, IV Titration 759 691.091 Amount ACETAMINOPHEN IV (For NPO 100 ) 1,000 mg In Empty Bag 1 bag @ 400 mls/hr IVPB Q6HR [facility] Rx#:[id number] Cisatracurium 200 mg In 165.148 80.325 Sodium Chloride 0.9% 180 ml @ 2 MCG/KG/MIN 12.852 mls/hr IV .[id number] [facility] Rx #:[id number] Mvi, Adult No.4 with Vit 216 K 10 ml Trace (Conc-1Ml/ Dose) 1 ml Sodium Acetate 40 meq Potassium Acetate 14 meq Calcium Gluconate 1 gm Potassium Phosphate 15 mmol Magnesium Sulfate gm 0.5 gm In Amino Acids 5 %/Dextrose 20 % 1,000 ml @ 108 mls/ hr IV .BY DURATION [facility] Rx #:[id number] Norepinephrine 8 mg In 672.662 382.654 Sodium Chloride 0.9% 250 ml @ 0.03 MCG/KG/MIN 6. 217 mls/hr IV .Q24H [facility] Rx#:[id number] Sodium Chloride 0.9% 1, 600 000 ml @ 150 mls/hr IV . Q6H40M [facility] Rx#:[id number] Vasopressin 20 unit In 51 Sodium Chloride 0.9% 50 ml @ 0.03 UNITS/MIN 4.59 mls/hr IV .Q11H7M [facility] Rx# :[id number] propofoL 1,000 mg In 257.949 177.112 Empty Bag 1 bag @ 15 MCG/ KG/MIN 9.639 mls/hr IV . [id number] [facility] Rx#:[id number] Output: Drainage 215 90 Left Lower Abdomen 215 70 Left Upper Abdomen 20 Urine 700 1245 965 Estimated Blood Loss 100 Other: Voiding Method Urinal Indwelling Catheter ABP, PAP, CO, CI - Last Documented Arterial Blood Pressure 123/67 - Exam GENERAL DESCRIPTION: A middle-age male intubated on the vent RESPIRATORY SYSTEM: Unlabored breathing , decreased breath sounds at bases HEART: S1 S2 regular rate and rhythm , ABDOMEN: Soft , midline incision is intact no output in ileostomy EXTREMITIES: No edema feet - Labs CBC & Chem 7: 09/14/22 04:45 09/14/22 14:45 Labs: Abnormal Lab Results - Last 24 Hours (Table) 09/13/22 09/13/22 09/13/22 Range/Units 18:58 20:43 23:40 WBC (3.8-10.6) k/uL RBC (4.30-5.90) m/uL Hgb (13.0-17.5) gm/dL Hct (39.0-53.0) % Plt Count (150-450) k/uL Neutrophils # (1.3-7.7) k/uL Lymphocytes # (1.0-4.8) k/uL ABG pH 7.18 L* 7.25 L (7.35-7.45) ABG pCO2 59 H (35-45) mmHg ABG pO2 342 H (83-108) mmHg ABG HCO3 20 L (21-25) mmol/L ABG O2 Saturation 99.8 H 97.3 H (94-97) % Sodium (137-145) mmol/L Potassium (3.5-5.1) mmol/L Carbon Dioxide (22-30) mmol/L BUN (9-20) mg/dL Creatinine (0.66-1.25) mg/dL Glucose (74-99) mg/dL POC Glucose (mg/dL) 175 H (70-110) mg/dL Calcium (8.4-10.2) mg/dL Phosphorus (2.5-4.5) mg/dL Magnesium (1.6-2.3) mg/dL 09/14/22 09/14/22 09/14/22 Range/Units 04:45 04:45 04:45 WBC 20.1 H (3.8-10.6) k/uL RBC 3.43 L (4.30-5.90) m/uL Hgb 9.3 L (13.0-17.5) gm/dL Hct 29.3 L (39.0-53.0) % Plt Count 481 H (150-450) k/uL Neutrophils # 18.2 H (1.3-7.7) k/uL Lymphocytes # 0.8 L (1.0-4.8) k/uL ABG pH (7.35-7.45) ABG pCO2 (35-45) mmHg ABG pO2 (83-108) mmHg ABG HCO3 (21-25) mmol/L ABG O2 Saturation (94-97) % Sodium 131 L (137-145) mmol/L Potassium 6.6 H* (3.5-5.1) mmol/L Carbon Dioxide 20 L (22-30) mmol/L BUN 32 H (9-20) mg/dL Creatinine 2.15 H (0.66-1.25) mg/dL Glucose 379 H (74-99) mg/dL POC Glucose (mg/dL) (70-110) mg/dL Calcium 6.4 L* (8.4-10.2) mg/dL Phosphorus 5.2 H (2.5-4.5) mg/dL Magnesium 1.4 L (1.6-2.3) mg/dL 09/14/22 09/14/22 09/14/22 Range/Units 06:05 06:37 06:46 WBC (3.8-10.6) k/uL RBC (4.30-5.90) m/uL Hgb (13.0-17.5) gm/dL Hct (39.0-53.0) % Plt Count (150-450) k/uL Neutrophils # (1.3-7.7) k/uL Lymphocytes # (1.0-4.8) k/uL ABG pH 7.31 L (7.35-7.45) ABG pCO2 (35-45) mmHg ABG pO2 184 H (83-108) mmHg ABG HCO3 (21-25) mmol/L ABG O2 Saturation 99.4 H (94-97) % Sodium (137-145) mmol/L Potassium (3.5-5.1) mmol/L Carbon Dioxide (22-30) mmol/L BUN (9-20) mg/dL Creatinine (0.66-1.25) mg/dL Glucose (74-99) mg/dL POC Glucose (mg/dL) 434 H 402 H (70-110) mg/dL Calcium (8.4-10.2) mg/dL Phosphorus (2.5-4.5) mg/dL Magnesium (1.6-2.3) mg/dL 09/14/22 09/14/22 09/14/22 Range/Units 08:54 11:15 12:33 WBC (3.8-10.6) k/uL RBC (4.30-5.90) m/uL Hgb (13.0-17.5) gm/dL Hct (39.0-53.0) % Plt Count (150-450) k/uL Neutrophils # (1.3-7.7) k/uL Lymphocytes # (1.0-4.8) k/uL ABG pH (7.35-7.45) ABG pCO2 (35-45) mmHg ABG pO2 (83-108) mmHg ABG HCO3 (21-25) mmol/L ABG O2 Saturation (94-97) % Sodium (137-145) mmol/L Potassium 5.9 H (3.5-5.1) mmol/L Carbon Dioxide (22-30) mmol/L BUN (9-20) mg/dL Creatinine (0.66-1.25) mg/dL Glucose (74-99) mg/dL POC Glucose (mg/dL) 397 H 394 H (70-110) mg/dL Calcium (8.4-10.2) mg/dL Phosphorus (2.5-4.5) mg/dL Magnesium (1.6-2.3) mg/dL 09/14/22 Range/Units 14:45 WBC (3.8-10.6) k/uL RBC (4.30-5.90) m/uL Hgb (13.0-17.5) gm/dL Hct (39.0-53.0) % Plt Count (150-450) k/uL Neutrophils # (1.3-7.7) k/uL Lymphocytes # (1.0-4.8) k/uL ABG pH (7.35-7.45) ABG pCO2 (35-45) mmHg ABG pO2 (83-108) mmHg ABG HCO3 (21-25) mmol/L ABG O2 Saturation (94-97) % Sodium (137-145) mmol/L Potassium 5.2 H (3.5-5.1) mmol/L Carbon Dioxide (22-30) mmol/L BUN (9-20) mg/dL Creatinine (0.66-1.25) mg/dL Glucose (74-99) mg/dL POC Glucose (mg/dL) (70-110) mg/dL Calcium (8.4-10.2) mg/dL Phosphorus (2.5-4.5) mg/dL Magnesium (1.6-2.3) mg/dL Microbiology - Last 24 Hours (Table) 09/11/22 19:00 Gram Stain - Final Abdomen Wound Culture - Final Escherichia coli 09/11/22 13:00 Gram Stain - Preliminary Aspirate Body Fluid Culture - Preliminary Gram Neg Bacilli 09/08/22 09:24 Blood Culture - Final Blood Assessment and Plan (1) Intra-abdominal abscess Current Visit: Yes Status: Acute Code(s): K65.1 - PERITONEAL ABSCESS SNOMED Code(s): 89890623 Plan: 1patient with sepsis in this patient who did have a fever tachycardia elevated white count source is intra-abdominal in this patient with evidence of colonic diverticular perforation intra-abdominal abscess status post laparotomy drainage of the abscess and primary anastomosis , cultures growing E. coli Pseudomonas and Enterococcus faecium with sensitivities pending. 2patient with fever and elevated white count concerning for perihepatic abscess, the patient is status post CT-guided drainage culture has been obtained which dual E. coli which is sensitive pathogen 3-patient now with bowl perforation from small bowel necrosis status post extensive abdominal surgery lysis of adhesion and creation of ileostomy cultures has been obtained and those are currently pending 4-patient to continue the Zosyn and daptomycin and monitored clinical course CLOSELY Time with Patient: Less than 30
[2022-09-15 00:02] LABS: Glucose,Whole Blood 351 mg/dL (70-110)
[2022-09-15] MEDS: INSULIN ASPART (NovoLOG) 100 UNIT/ML VIAL SQ SCH ×7 (00:10→18:32)
[2022-09-15] MEDS: METOCLOPRAMIDE 5 MG/ML 2 ML VIAL IVP SCH ×4 (00:12→18:32)
[2022-09-15] MEDS: PIPERACILLIN-TAZOBACTAM 3.375 GM in SODIUM CHLORIDE 0.9% 100 ML IVPB SCH ×3 (00:12→17:02)
[2022-09-15] MEDS: HYDROmorphone 1 MG/ML 1 ML SYRINGE IVP PRN ×4 (00:13→12:40)
[2022-09-15] MEDS: IPRATROPIUM-ALBUTEROL 3 ML NEB INHALATION SCH ×6 (00:38→20:03)
[2022-09-15] MEDS: NOREPINEPHRINE 8 MG in SODIUM CHLORIDE 0.9% 250 ML IV SCH ×2 (02:50→21:33)
[2022-09-15] MEDS: SODIUM CHLORIDE 0.9% 1,000 ML IV SCH ×2 (05:18→14:35)
[2022-09-15 05:43] LABS: Basophils % (A) 0 %; Eosinophils # (A) 0.1 k/uL (0-0.7); Eosinophils % (A) 1 %; HCT 22.5 % (39.0-53.0); Hypochromasia Slight; Lymphocytes # (A) 0.7 k/uL (1.0-4.8); Lymphocytes % (A) 4 %; MCH 27.7 pg (25.0-35.0); MCHC 32.2 g/dL (31.0-37.0); MCV 86.1 fL (80.0-100.0); Mean Platelet Volume 8.7; Monocytes # (A) 0.6 k/uL (0-1.0); Monocytes % (A) 3 %; Neutrophils # (A) 17.1 k/uL (1.3-7.7); Neutrophils % (A) 91 %; Platelet Count 398 k/uL (150-450); RBC 2.62 m/uL (4.30-5.90); RDW 15.1 % (11.5-15.5); WBC 18.8 k/uL (3.8-10.6)
[2022-09-15 05:49] LABS: HGB 7.3 gm/dL (13.0-17.5)
[2022-09-15 06:03] LABS: African American GFR (CKD) 69 (>60 ml/min/1.73 sqM); Anion Gap 4 mmol/L; Blood Urea Nitrogen 27 mg/dL (9-20); Carbon Dioxide 24 mmol/L (22-30); Chloride 110 mmol/L (98-107); Glucose 255 mg/dL (74-99); Magnesium 2.6 mg/dL (1.6-2.3); Non-African American GFR(CKD) 60 (>60 ml/min/1.73 sqM); Phosphorus 2.7 mg/dL (2.5-4.5); Potassium 4.7 mmol/L (3.5-5.1); Sodium 138 mmol/L (137-145)
[2022-09-15 06:08] LABS: Glucose,Whole Blood 271 mg/dL (70-110)
[2022-09-15] MEDS: INSULIN DETEMIR (LEVEMIR) 100 UNIT/ML SYR SQ SCH ×2 (06:13→19:55)
[2022-09-15 06:24] LABS: ABG Base Excess -0.2 mmol/L; ABG HCO3 25 mmol/L (21-25); ABG Oxygen Saturation 98.7 % (94-97); ABG PCO2 41 mmHg (35-45); ABG PH 7.39 (7.35-7.45); ABG PO2 106 mmHg (83-108); ABG TCO2 26 mmol/L (19-24); Allen Test Performed? Yes
[2022-09-15 07:04] LABS: Glucose,Whole Blood 262 mg/dL (70-110)
--- NOTE | 2022-09-15 07:30 | XR ---
EXAMINATION TYPE: XR chest 1V portable DATE OF EXAM: 09/15/2022 5:22 AM COMPARISON: Chest radiograph from one day prior. TECHNIQUE: XR chest 1V portable Frontal view of the chest. CLINICAL INDICATION:Male, 52 years old with history of Tube placement; FINDINGS: Lungs/Pleura: Bibasilar atelectasis. Blunting of bilateral costophrenic angles unchanged from prior. No evidence for pneumothorax or focal consolidation. Pulmonary vascularity: Unremarkable. Heart/mediastinum: Cardiomediastinal silhouette is unremarkable. Musculoskeletal: No acute osseous pathology. Other findings: None Lines/Tubes: Endotracheal tube with distal tip 4.3 cm above the katelyn. Nasogastric tube with its distal tip and side-port projecting under the diaphragm and projecting over the gastric lumen. Left-sided PICC with distal tip at the superior vena cava/brachiocephalic confluence. Left internal jugular central venous catheter with distal tip at the cavoatrial junction. IMPRESSION: 1. Support tubes in appropriate position. 2. Bibasilar atelectasis. 3. Left pleural effusion.
[2022-09-15] MEDS: VASOPRESSIN 20 UNIT in SODIUM CHLORIDE 0.9% 50 ML IV SCH ×2 (07:40→13:45)
[2022-09-15] MEDS: ARTIFICIAL TEARS-HYPROMELLOSE DROPS 15 ML BTL BOTH EYES SCH ×4 (08:06→19:56)
[2022-09-15] MEDS: PANTOPRAZOLE 40 MG/10 ML VIAL IV SCH (08:07)
[2022-09-15] MEDS: CHLORHEXIDINE GLUCONATE 15 ML CUP MUCOUS MEM SCH ×2 (08:07→19:55)
[2022-09-15] MEDS: DAPTOmycin 500 MG in SODIUM CHLORIDE 0.9% 50 ML IVPB SCH (08:08)
[2022-09-15] MEDS: HEPARIN SODIUM,PORCINE/PF 5,000 UNIT/0.5 ML SYRINGE SQ SCH ×2 (08:08→19:55)
--- NOTE | 2022-09-15 09:42 | P.PN ---
Subjective Progress Note Date: 09/15/22 CHIEF COMPLAINT: Pneumoperitoneum, abdominal pain HISTORY OF PRESENT ILLNESS: The patient is a 52-year-old male status post right hemicolectomy for colon cancer 08/29/2022. He was discharged from the hospital without sequelae 08/31/2022 and returned to the hospital 09/03/2022 for pneumoperitoneum. He is status post exploratory laparotomy, lysis of adhesions, evacuation of intra-abdominal abscess, right hemicolectomy for resection of perforated transverse colon diverticulum, 09/04/2022. He then developed acute abdominal pain with suspected bowel perforation. He was taken back to the operating room 09/13/2022 with ileostomy, drainage of perihepatic abscess and extensive lysis of adhesions with small bowel resection. He is intubated. Ileostomy without current function. ROS: No new chest pain. T-max 99.7F PHYSICAL EXAM: VITAL SIGNS: Reviewed CONSTITUTIONAL: Well developed and in no acute distress. EYES: Conjuctivae without sclera icterus. Extraocular movements grossly intact. HEAD, EARS, NOSE, THROAT: Moist buccal mucosa. Head is atraumatic, normocephalic. Hears conversational speech. RESPIRATORY:abored breathing CARDIOVASCULAR: Palpable 2+ radial pulses. Tachycardic. ABDOMEN: No further abdominal distention. Ileostomy was serous drainage. Left- sided SARAI drains with serous cloudy drainage. Incisional wound VAC system with with Atkinson drain and drainage incanister. MUSCULOSKELETAL: No gross deformity of the lower extremities noted. No clubbing. No cyanosis. SKIN: Good skin turgor. Well perfused. NEUROLOGIC: Cranial nerves II through XII grossly intact. No focal or lateralizing signs. PSYCH: Appropriate affect. Alert and oriented to person, place and time. CLINICAL LABS: Reviewed. WBC trending down from over 20,000-18,000. MICRO: Antibiotic is assisting Unasyn and ampicillin for Enterobacter, E. coli sensitive to multiple antibiotics PATHOLOGY: : Invasive mucinous adenocarcinoma; TUMOR SITE: Cecum HISTOLOGIC TYPE: Mucinous adenocarcinoma HISTOLOGIC GRADE: G2, moderately differentiated TUMOR SIZE: 10 cm in circumference and 5 cm in length MARGIN STATUS FOR INVASIVE CARCINOMA: All margins negative for invasive carcinoma ASSESSMENT: 1. Pneumoperitoneum due to perforated diverticulum 2. Tachycardia with fevers consistent with sepsis 3. Acute kidney injury, failure due to severe sepsis 4. Colon cancer status post resection 5. Liver abscess, para hepatic 6. Incisional wound abscess 7. Perforated anastomosis, acute PLAN: 1. Continue ICU management with antibiotics 2. Extubation protocol per intensive 3. Continue TPN 4. Monitor troponins with persistent tachycardia Objective - Vital Signs Vital signs: Vital Signs Temp 98.7 F 09/15/22 08:00 Pulse 128 H 09/15/22 08:45 Resp 28 H 09/15/22 08:45 BP 130/73 09/15/22 08:45 Pulse Ox 100 09/15/22 08:45 FiO2 40 09/15/22 08:30 Intake & Output 09/14/22 09/15/22 09/15/22 18:59 06:59 18:59 Intake Total 5606.315 4562.906 1093.036 Output Total 3690 3175 770 Balance 1876.390 6791.906 323.036 Intake: IV 3343 2838 944 ACETAMINOPHEN IV (For NPO 50 ) 1,000 mg In Empty Bag 1 bag @ 400 mls/hr IVPB Q6HR [facility] Rx#:[id number] DAPTOmycin 500 mg In 100 50 Sodium Chloride 0.9% 50 ml @ 100 mls/hr IVPB Q24HR [facility] Rx#:[id number] Fat Emulsion 20% 250 ml 21 In Empty Bag 1 bag @ 21 mls/hr IV WeSa@1800 [facility] Rx#:[id number] Magnesium Sulfate-D5w Pmx 200 1 gm In Dextrose/Water 1 100ml.bag @ 100 mls/hr IVPB ONCE ONE Rx#: [id number] Mvi, Adult No.4 with Vit 324 324 K 10 ml Trace (Conc-1Ml/ Dose) 1 ml Sodium Acetate 60 meq Calcium Gluconate 1.5 gm Magnesium Sulfate gm 1 gm In Amino Acids 5 %/Dextrose 20 % 1,000 ml @ 108 mls/hr IV .BY DURATION [facility] Rx#: [id number] Piperacillin-Tazobactam 3 200 100 .375 gm In Sodium Chloride 0.9% 100 ml @ 25 mls/hr IVPB Q8HR [facility] Rx# :[id number] Sodium Acetate 60 meq 972 864 Calcium Gluconate 1.5 gm Magnesium Sulfate gm 1 gm In Amino Acids 5 %/ Dextrose 20 % 1,000 ml @ 108 mls/hr IV .BY DURATION [facility] Rx#: [id number] Sodium Chloride 0.9% 1, 1800 1650 470 000 ml @ 150 mls/hr IV . Q6H40M [facility] Rx#:[id number] Intake, IV Titration 3924.658 5426.906 149.036 Amount Cisatracurium 200 mg In 80.325 Sodium Chloride 0.9% 180 ml @ 2 MCG/KG/MIN 12.852 mls/hr IV .[id number] [facility] Rx #:[id number] Norepinephrine 8 mg In 483.878 241.468 Sodium Chloride 0.9% 250 ml @ 0.03 MCG/KG/MIN 6. 217 mls/hr IV .Q24H [facility] Rx#:[id number] Sodium Acetate 60 meq 1047 1047 Calcium Gluconate 1.5 gm Magnesium Sulfate gm 1 gm In Amino Acids 5 %/ Dextrose 20 % 1,000 ml @ 108 mls/hr IV .BY DURATION [facility] Rx#: [id number] Vasopressin 20 unit In 51 47.277 49.036 Sodium Chloride 0.9% 50 ml @ 0.03 UNITS/MIN 4.59 mls/hr IV .Q11H7M [facility] Rx# :[id number] propofoL 1,000 mg In 277.112 389.161 100 Empty Bag 1 bag @ 15 MCG/ KG/MIN 9.639 mls/hr IV . [id number] [facility] Rx#:[id number] TPN/PPN 324 Sodium Acetate 60 meq 324 Calcium Gluconate 1.5 gm Magnesium Sulfate gm 1 gm In Amino Acids 5 %/ Dextrose 20 % 1,000 ml @ 108 mls/hr IV .BY DURATION [facility] Rx#: [id number] Output: Gastric Drainage 300 Drainage 150 115 20 Left Lower Abdomen 70 85 10 Left Upper Abdomen 80 30 10 Urine 3540 2650 750 Other 110 Other: Voiding Method Indwelling Catheter Indwelling Catheter ABP, PAP, CO, CI - Last Documented Arterial Blood Pressure 101/47 - Labs CBC & Chem 7: 09/15/22 05:00 09/15/22 05:00 Labs: Abnormal Lab Results - Last 24 Hours (Table) 09/14/22 09/14/22 09/14/22 Range/Units 11:15 12:33 14:45 WBC (3.8-10.6) k/uL RBC (4.30-5.90) m/uL Hgb (13.0-17.5) gm/dL Hct (39.0-53.0) % Neutrophils # (1.3-7.7) k/uL Lymphocytes # (1.0-4.8) k/uL ABG Total CO2 (19-24) mmol/L ABG O2 Saturation (94-97) % Potassium 5.2 H (3.5-5.1) mmol/L Chloride (98-107) mmol/L BUN (9-20) mg/dL Creatinine (0.66-1.25) mg/dL Glucose (74-99) mg/dL POC Glucose (mg/dL) 397 H 394 H (70-110) mg/dL Calcium (8.4-10.2) mg/dL Magnesium (1.6-2.3) mg/dL 09/14/22 09/15/22 09/15/22 Range/Units 17:07 00:00 05:00 WBC (3.8-10.6) k/uL RBC (4.30-5.90) m/uL Hgb (13.0-17.5) gm/dL Hct (39.0-53.0) % Neutrophils # (1.3-7.7) k/uL Lymphocytes # (1.0-4.8) k/uL ABG Total CO2 (19-24) mmol/L ABG O2 Saturation (94-97) % Potassium (3.5-5.1) mmol/L Chloride 110 H (98-107) mmol/L BUN 27 H (9-20) mg/dL Creatinine 1.37 H (0.66-1.25) mg/dL Glucose 255 H (74-99) mg/dL POC Glucose (mg/dL) 360 H 351 H (70-110) mg/dL Calcium 7.0 L (8.4-10.2) mg/dL Magnesium 2.6 H (1.6-2.3) mg/dL 09/15/22 09/15/22 09/15/22 Range/Units 05:00 06:07 06:20 WBC 18.8 H (3.8-10.6) k/uL RBC 2.62 L (4.30-5.90) m/uL Hgb 7.3 L D (13.0-17.5) gm/dL Hct 22.5 L (39.0-53.0) % Neutrophils # 17.1 H (1.3-7.7) k/uL Lymphocytes # 0.7 L (1.0-4.8) k/uL ABG Total CO2 26 H (19-24) mmol/L ABG O2 Saturation 98.7 H (94-97) % Potassium (3.5-5.1) mmol/L Chloride (98-107) mmol/L BUN (9-20) mg/dL Creatinine (0.66-1.25) mg/dL Glucose (74-99) mg/dL POC Glucose (mg/dL) 271 H (70-110) mg/dL Calcium (8.4-10.2) mg/dL Magnesium (1.6-2.3) mg/dL 09/15/22 Range/Units 07:02 WBC (3.8-10.6) k/uL RBC (4.30-5.90) m/uL Hgb (13.0-17.5) gm/dL Hct (39.0-53.0) % Neutrophils # (1.3-7.7) k/uL Lymphocytes # (1.0-4.8) k/uL ABG Total CO2 (19-24) mmol/L ABG O2 Saturation (94-97) % Potassium (3.5-5.1) mmol/L Chloride (98-107) mmol/L BUN (9-20) mg/dL Creatinine (0.66-1.25) mg/dL Glucose (74-99) mg/dL POC Glucose (mg/dL) 262 H (70-110) mg/dL Calcium (8.4-10.2) mg/dL Magnesium (1.6-2.3) mg/dL Microbiology - Last 24 Hours (Table) 09/11/22 13:00 Gram Stain - Final Aspirate Body Fluid Culture - Final Escherichia coli 09/11/22 19:00 Gram Stain - Final Abdomen Wound Culture - Final Escherichia coli
--- NOTE | 2022-09-15 10:06 | P.PN ---
Subjective Progress Note Date: 09/15/22 This is a 52-year-old -Welsh male with history of colon cancer, status post right hemicolectomy for cecal colon cancer on 08/29/2022. Patient was discharged uneventfully on Percocet and Motrin for pain control. Patient was readmitted on 09/03/2022, he was mostly admitted with abdominal pain, distention, nausea and vomiting which started a few days prior to his admission. Patient was seen by surgery on consultation, and he was found to have acute pneumoperitoneum. Yesterday, the patient underwent robotic-assisted laparoscopic extensive lysis of adhesions open exploratory laparotomy with right hemicolectomy and primary anastomosis drainage of abdominal abscess abdominal peritoneal lavage, Margarita spent of a SARAI drain in the pelvis and placement of the incisional wound VAC system. I was notified about this patient from Dr. Moeller yesterday, and considering his abdominal sepsis presentation considering his surgical findings considering the patient was not extubated postoperatively, we admitted the patient to the ICU, manage his ventilator overnight, and I'm evaluating the patient today on consultation. Patient had a relatively uneventful night, did not require any pressors, he did receive fluids and he seems to be hemodynamically stable, remains on mechanical ventilation. H is ventilator settings at this point are assist control rate of 18 tidal volume 500 FiO2 40% and PEEP of 5 recent ABG showed a pO2 of 79 pCO2 39 pH of 7.42 patient is on vancomycin and Zosyn for his abdominal sepsis he is on propofol at 65 mcg/kg/m he has good urine output roughly 30-50 mL per hour. Patient has a nasogastric tube applied to suction and he has a wound VAC. He also has a SARAI drain noted. Patient is sedated and calm, however I would recommend a trial of sedation interruption and possibly weaning parameters, if tolerated may consider further weaning and extubation today. Labs today showed relatively normal CBC WBC count is 8.6 hemoglobin is 10.4. Elect lites are normal BUN is 23 creatinine 1.36. Reevaluated today on 09/06/2022, patient remains in the ICU, patient was ext ubated yesterday and he tolerated extubation well over the last 24 hours. He is on 2 L nasal cannula, not in any distress. Continues to have significant nasogastric output. Patient is to be started on TPN today. Doing better than expected overall. Remains on antibiotics for his abdominal sepsis. White count is 11.8 today hemoglobin is 9.6. Elect lites are normal renal profile is normal with a creatinine of 1.14, improving since admission from 2.14 on admission. Patient is compliant with his incentive spirometry and doing a good job with I- S. Reevaluated today on 09/07/2022, patient remains in the ICU, he feels generally weak, denies any shortness of breath, no cough, no wheezing. Continues to have nasogastric tube in place, and he had 1 50 mL of output overnight. Patient on TPN for nutritional support. His sodium was noted to be elevated today, and I recommended switching his IV fluid to D5W at 100 mL per hour. His labs otherwise are unremarkable. Patient is doing well with incentive spirometry, pain is fairly well controlled. Renal profile is normal, WBC count is 11.8 hemoglobin is 9.6 The patient is seen today 09/08/2022 in follow-up in the intensive care unit. Danny jordan is currently resting comfortably in bed. Awake and alert in no acute distress. He is maintaining good O2 saturations in the mid 90s on room air. He is febrile with a temp of 101.9. Tachycardic. Hypertensive. Blood cultures pending. Abdominal x-ray revealed persistent markedly dilated small bowel loops. Peritoneal fluid cultures were positive for E. coli, Pseudomonas aeruginosa, enterococcus faecium. He remains nothing by mouth. He is continued on TPN and lipids. Antibiotics in the form of Zosyn and now daptomycin. Remains on heparin for DVT prophylaxis. He is up ambulating with assistance. The patient is seen today 09/09/2022 in follow-up in the intensive care unit. He is currently resting comfortably in bed. Awake and alert in no acute distress. White count 19.7. Hemoglobin 9.4. Platelets 245. Sodium 141. Potassium 3.9. Bicarb 24. BUN 14. Creatinine 0.78. Glucose 139. He is maintaining good O2 saturations in the mid 90s on room air. Continues with a low-grade fever currently at 100.8. Tachycardic. He is continued on TPN 108 ML's per hour. He has D5W it 100 ML's per hour. 0.9 normal setting at KVO. He is on antibiotics in the form of Zosyn and daptomycin. He is working well with the incentive spirometer. Remains on strict nothing by mouth per surgical services. The patient is seen today 09/10/2022 in follow-up in the intensive care unit. He is currently resting fairly comfortably in bed. Awake and alert in no acute distress. Chest x-ray shows improving bilateral infiltrate and small effusion. He continues to maintain good O2 saturations in the 90s on room air. Some abdominal distention and discomfort. Follow-up computed tomography scan pending. Still have an elevated temperatures up to 102.4 last night. White count 18.3. Hemoglobin 8.8. Sodium 139. Potassium 4.0. Bicarb 24. BUN 14. Creatinine 0.83. He remains on daptomycin and Zosyn. Being nourished with TPN at 108 ML's per hour. Heparin for DVT prophylaxis. The patient is seen today 09/11/2022 in follow-up in the intensive care unit. He is currently resting in bed. Awake and alert in no acute distress. Maintaining good O2 saturations in the 90s on room air. His initial peritoneal fluid cultures were positive for E. coli, pseudomonas aeruginosa, enterococcus faecium. Follow-up blood cultures are pending. He did have issues with abdominal distention. Follow-up computed tomography scan revealed loculated and non-loculated. Hepatic collections some of which demonstrate mildly thickened almeida with internal foci of air.. Hepatic abscesses are not excluded. Persistent dilatation of the small bowel small bowel wall thickening and inflammatory change in the interval colonic anastomotic site. Persistent postoperative ileus and/or obstructive change is not excluded. Adjacent drains in place. Leak is difficult to exclude. Small amount of free air persistent but improved. Chest x-ray reveals stable bilateral lower lobe infiltrate and small effusion. Left-sided PICC line remains in place. White count 16.0. Hemoglobin 9.1. Platelets 270. Sodium 136. Potassium 4.3. Bicarb 24. BUN 15. Creatinine 0.90. Glucose 124. He is continued on daptomycin and Zosyn. Continues to work with the incentive spirometer. Heparin for DVT prophylaxis. Being nourished with TPN at 108 ML's per hour. The patient is seen today 09/12/2022 in follow-up in the intensive care unit. He is currently resting comfortably in bed. Awake and alert in no acute distress. Maintaining O2 saturations in the 90s on room air. Working well with the incentive spirometer. He did undergo a a CT-guided abscess drainage of the liver yesterday with 100 purulent fluid removed. He also had several fransisca removed from his abdominal wound that drained fluid as well. Cultures are pending. A venous. Belden fluid cultures were positive for E. coli, pseudom onas aeruginosa, enterococcus faecium. White count 12.8. He will been 8.8. Platelets 302. Sodium 135. Potassium 4.8. Bicarb 24. BUN 15. Creatinine 0.79. Glucose 149. He remains on TPN at 180 MLS per hour. Continued on Zosyn and daptomycin. The patient is seen today 09/13/2022 in follow-up in the intensive care unit. He remains awake and alert. Maintaining O2 saturations in the 90s on room air. Slightly febrile at 99.6. He is tachycardic. He has been having issues now with stool and air oozing from his abdominal surgical site. Apparently he had a coughing episode and had some dehiscence in the supraumbilical location. There is also air seen from the abdominal cavity coming to the staple line. Surgical services are following and plans for return to the OR this morning. His body fluid cultures had previously been positive for E. coli, pseudomonas aeruginosa, enterococcus facing him. Wound culture still positive with gram-negative bacilli. He's been continued on daptomycin and Zosyn. White count 17.9. Hemoglobin 9.0. Platelets 458. Sodium 134. Potassium 5.0. Bicarb 21. BUN 16. Creatinine 0.01. Glucose 136. He remains on TPN at 108 ML's per hour. Lipids on Wednesdays and Saturdays. Heparin for DVT prophylaxis. Dilaudid for pain control. The patient is seen today 09/14/2022 in follow-up in the intensive care unit. He did end up going back to surgery yesterday. This is quite extensive and lasting nearly 7 hours. He had undergone an exploratory laparotomy and extensive lysis of adhesions, resection of ilealcolic anastomosis, drainage of perihepatic loculated abscess with removal of CT-guided drain, small bowel resection for small bowel necrosis/perforation, placement of ileostomy, abdominal washout with 7 L of normal saline, debridement of abdominal wall midline incision, patient of the Moiz-Hanely in the right anterior lateral hepatic space, placement of Moiz-Hanley drain in the right pelvis, quarter-inch Don drain in the subcutaneous tissue midline incision and placement of Provena incisional wound VAC system. He was returned to the intensive care unit on the mechanical ventilator. Current settings are assist-control mode of 28, tidal volume 500, FiO2 40% and a PEEP of 5. Morning blood gases revealed a pO2 of 184, pCO2 of 41, pH 7.31 on 50% FiO2. White count 20.1. Hemoglobin 9.3. Platelets 41. Sodium 131. Potassium initially 6.6 corrected to 5.9, bicarb 20, BUN 32. Creatinine 2.15. Glucose 379. Magnesium 1.4. Chest x-ray reveals bibasilar atelectasis. No evidence of pneumothorax. Endotracheal and gastric tube secured in place. Left-sided PICC line in place. Follow-up abdominal wound culture positive for E. coli. He is currently on daptomycin and Zosyn. He is requiring pressor support currently on norepinephrine at 25 mcg/m. Vasopressin at 0.03 units per minute. Propofol at 50 mcg/kg/m. Nimbex at 1.5 mcg/kg/m. 0.9 normal saline at 50 MLS per hour. TPN at 108 ML's per hour and lipids for nourishment. CVP of 10. He is status post 8 L of fluid resuscitation. Currently in a +8.6 L balance. On 09/15/2022, the patient is being seen in follow-up in the intensive care unit. The patient is currently intubated on a mechanical ventilator. The patient is sedated with propofol at 75 mcg/kg/m and the patient is also Nimbex at 1 mcg/kg/m. He is adequately sedated and paralyzed at this point in time. He remains on a mechanical ventilator. Is on assist control mode at the rate of 28, tidal volume of 500, FiO2 of 40% with a PEEP of 5. The patient blood gas from this morning shows a pH of 7.39 with a pCO2 of 41 and pO2 of 106 and this was on FiO2 of 40%. The chest x-ray from today shows some atelectatic changes in left lung base. Otherwise the lungs are well expanded. There is no evidence of pneumothorax. ET tube is in a good location at this point in time. The patient also has a orogastric tube in place. The triple-lumen catheter in the left side is also seen in the subclavian vein. Hemodynamically, the patient is on IV fluids and currently is on 0.9 at the rate of 150 mL an hour. The patient is also on pressors. He was on norepinephrine earlier this morning this was weaned off and discontinued. He remains on vasopressin physiologic dose at 0.03 units per minutes. The patient's urine output is in order of 30-40 mL an hour. That fluid balance has been 1.3 L over the past 24 hours. The viscosity 2.8 with hemoglobin of 7.3 and a drop in hemoglobin has been noted. The patient's platelet count is at 398. BUN is at 27 with a creatinine of 1.3 and a sodium level is at 138. Glucose is at 255. Antibiotic coverage is with a combination of daptomycin and Zosyn. TPN is running at the rate of 108 mL an hour. Most recent cultures from the abdominal wall this consistent with E. coli Pseudomonas and enterococcus. The surgical wound site is currently dry clean and intact. The patient is a SARAI drain in the left lower quadrant and another drain in the le ft upper quadrant. Ileostomy is viable and there is minimal amount of liquidy output collecting in the ileostomy bag. This morning, he is afebrile. He did spike a temperature yesterday. Objective - Vital Signs Vital signs: Vital Signs Temp 98.7 F 09/15/22 08:00 Pulse 128 H 09/15/22 08:45 Resp 28 H 09/15/22 08:45 BP 130/73 09/15/22 08:45 Pulse Ox 100 09/15/22 08:45 FiO2 40 09/15/22 08:30 Intake & Output 09/14/22 09/15/22 09/15/22 18:59 06:59 18:59 Intake Total 5606.315 4562.906 1093.036 Output Total 3690 3175 770 Balance 7535.977 4509.906 323.036 Intake: IV 3343 2838 944 ACETAMINOPHEN IV (For NPO 50 ) 1,000 mg In Empty Bag 1 bag @ 400 mls/hr IVPB Q6HR [facility] Rx#:[id number] DAPTOmycin 500 mg In 100 50 Sodium Chloride 0.9% 50 ml @ 100 mls/hr IVPB Q24HR [facility] Rx#:[id number] Fat Emulsion 20% 250 ml 21 In Empty Bag 1 bag @ 21 mls/hr IV [id number] [facility] Rx#:[id number] Magnesium Sulfate-D5w Pmx 200 1 gm In Dextrose/Water 1 100ml.bag @ 100 mls/hr IVPB ONCE ONE Rx#: [id number] Mvi, Adult No.4 with Vit 324 324 K 10 ml Trace (Conc-1Ml/ Dose) 1 ml Sodium Acetate 60 meq Calcium Gluconate 1.5 gm Magnesium Sulfate gm 1 gm In Amino Acids 5 %/Dextrose 20 % 1,000 ml @ 108 mls/hr IV .BY DURATION [facility] Rx#: [id number] Piperacillin-Tazobactam 3 200 100 .375 gm In Sodium Chloride 0.9% 100 ml @ 25 mls/hr IVPB Q8HR [facility] Rx# :[id number] Sodium Acetate 60 meq 972 864 Calcium Gluconate 1.5 gm Magnesium Sulfate gm 1 gm In Amino Acids 5 %/ Dextrose 20 % 1,000 ml @ 108 mls/hr IV .BY DURATION [facility] Rx#: [id number] Sodium Chloride 0.9% 1, 1800 1650 470 000 ml @ 150 mls/hr IV . Q6H40M [facility] Rx#:[id number] Intake, IV Titration 7323.774 4824.906 149.036 Amount Cisatracurium 200 mg In 80.325 Sodium Chloride 0.9% 180 ml @ 2 MCG/KG/MIN 12.852 mls/hr IV .[id number] [facility] Rx #:[id number] Norepinephrine 8 mg In 483.878 241.468 Sodium Chloride 0.9% 250 ml @ 0.03 MCG/KG/MIN 6. 217 mls/hr IV .Q24H [facility] Rx#:[id number] Sodium Acetate 60 meq 1047 1047 Calcium Gluconate 1.5 gm Magnesium Sulfate gm 1 gm In Amino Acids 5 %/ Dextrose 20 % 1,000 ml @ 108 mls/hr IV .BY DURATION [facility] Rx#: [id number] Vasopressin 20 unit In 51 47.277 49.036 Sodium Chloride 0.9% 50 ml @ 0.03 UNITS/MIN 4.59 mls/hr IV .Q11H7M [facility] Rx# :[id number] propofoL 1,000 mg In 277.112 389.161 100 Empty Bag 1 bag @ 15 MCG/ KG/MIN 9.639 mls/hr IV . [id number] [facility] Rx#:[id number] TPN/PPN 324 Sodium Acetate 60 meq 324 Calcium Gluconate 1.5 gm Magnesium Sulfate gm 1 gm In Amino Acids 5 %/ Dextrose 20 % 1,000 ml @ 108 mls/hr IV .BY DURATION [facility] Rx#: [id number] Output: Gastric Drainage 300 Drainage 150 115 20 Left Lower Abdomen 70 85 10 Left Upper Abdomen 80 30 10 Urine 3540 2650 750 Other 110 Other: Voiding Method Indwelling Catheter Indwelling Catheter ABP, PAP, CO, CI - Last Documented Arterial Blood Pressure 101/47 - Exam GENERAL EXAM: Intubated, sedated 52-year-old male patient. The patient is sedated and paralyzed. Orogastric and orotracheal tube are both in place. The patient also has a left subclavian triple-lumen catheter. HEAD: Normocephalic. EYES: Sluggish reaction of pupils, unequal size. NOSE: Oral endotracheal and gastric tube secured in place. Clear with pink turbinates. THROAT: No erythema or exudates. NECK: Left triple-lumen catheter secured in place. No masses, no JVD. CHEST: No chest wall deformity. LUNGS: Equal air entry with bilateral scattered rhonchi. CVS: S1 and S2 normal with no audible murmur, regular rhythm. ABDOMEN: Midline incision with Prevena wound VAC in place, [address]. Ileostomy [address] SPINE: No scoliosis or deformity SKIN: No rashes CENTRAL NERVOUS SYSTEM: Sedated, tone is normal in all 4 extremities. EXTREMITIES: Right radial arterial line secured in place. There is no peripheral edema. No clubbing, no cyanosis. Peripheral pulses are intact. - Labs CBC & Chem 7: 09/15/22 05:00 09/15/22 05:00 Labs: Abnormal Lab Results - Last 24 Hours (Table) 09/14/22 09/14/22 09/14/22 Range/Units 11:15 12:33 14:45 WBC (3.8-10.6) k/uL RBC (4.30-5.90) m/uL Hgb (13.0-17.5) gm/dL Hct (39.0-53.0) % Neutrophils # (1.3-7.7) k/uL Lymphocytes # (1.0-4.8) k/uL ABG Total CO2 (19-24) mmol/L ABG O2 Saturation (94-97) % Potassium 5.2 H (3.5-5.1) mmol/L Chloride (98-107) mmol/L BUN (9-20) mg/dL Creatinine (0.66-1.25) mg/dL Glucose (74-99) mg/dL POC Glucose (mg/dL) 397 H 394 H (70-110) mg/dL Calcium (8.4-10.2) mg/dL Magnesium (1.6-2.3) mg/dL 09/14/22 09/15/22 09/15/22 Range/Units 17:07 00:00 05:00 WBC (3.8-10.6) k/uL RBC (4.30-5.90) m/uL Hgb (13.0-17.5) gm/dL Hct (39.0-53.0) % Neutrophils # (1.3-7.7) k/uL Lymphocytes # (1.0-4.8) k/uL ABG Total CO2 (19-24) mmol/L ABG O2 Saturation (94-97) % Potassium (3.5-5.1) mmol/L Chloride 110 H (98-107) mmol/L BUN 27 H (9-20) mg/dL Creatinine 1.37 H (0.66-1.25) mg/dL Glucose 255 H (74-99) mg/dL POC Glucose (mg/dL) 360 H 351 H (70-110) mg/dL Calcium 7.0 L (8.4-10.2) mg/dL Magnesium 2.6 H (1.6-2.3) mg/dL 09/15/22 09/15/22 09/15/22 Range/Units 05:00 06:07 06:20 WBC 18.8 H (3.8-10.6) k/uL RBC 2.62 L (4.30-5.90) m/uL Hgb 7.3 L D (13.0-17.5) gm/dL Hct 22.5 L (39.0-53.0) % Neutrophils # 17.1 H (1.3-7.7) k/uL Lymphocytes # 0.7 L (1.0-4.8) k/uL ABG Total CO2 26 H (19-24) mmol/L ABG O2 Saturation 98.7 H (94-97) % Potassium (3.5-5.1) mmol/L Chloride (98-107) mmol/L BUN (9-20) mg/dL Creatinine (0.66-1.25) mg/dL Glucose (74-99) mg/dL POC Glucose (mg/dL) 271 H (70-110) mg/dL Calcium (8.4-10.2) mg/dL Magnesium (1.6-2.3) mg/dL 09/15/22 Range/Units 07:02 WBC (3.8-10.6) k/uL RBC (4.30-5.90) m/uL Hgb (13.0-17.5) gm/dL Hct (39.0-53.0) % Neutrophils # (1.3-7.7) k/uL Lymphocytes # (1.0-4.8) k/uL ABG Total CO2 (19-24) mmol/L ABG O2 Saturation (94-97) % Potassium (3.5-5.1) mmol/L Chloride (98-107) mmol/L BUN (9-20) mg/dL Creatinine (0.66-1.25) mg/dL Glucose (74-99) mg/dL POC Glucose (mg/dL) 262 H (70-110) mg/dL Calcium (8.4-10.2) mg/dL Magnesium (1.6-2.3) mg/dL Microbiology - Last 24 Hours (Table) 09/11/22 13:00 Gram Stain - Final Aspirate Body Fluid Culture - Final Escherichia coli 09/11/22 19:00 Gram Stain - Final Abdomen Wound Culture - Final Escherichia coli Assessment and Plan Plan: Acute pneumoperitoneum, secondary to perforated colonic diverticulum and transverse colon. Status post robotic-assisted laparoscopy with extensive lysis of adhesions, right hemicolectomy and primary anastomosis and drainage of abdo jose abscess abdominal peritoneal lavage and placement of SARAI drain as well as incisional wound VAC system on 09/04/2022. Follow-up computed tomography scan 09/10/2022 revealed loculated and non-loculated perihepatic collections some of which demonstrate mildly thickened almeida with internal foci of air. Hepatic abscesses are not excluded. Persistent dilatation of the small bowel small bowel wall thickening and inflammatory change in the interval colonic anastomotic site. Persistent postoperative ileus and/or obstructive change is not excluded. Adjacent drains in place. Leak is difficult to exclude. Small amount of free air persistent but improved. He did undergo a CT-guided catheter drainage of the liver abscess on 09/11/2022. Abdominal wound dehiscence with stool and air leak through the incision on 09/14/2022. He was returned to the operating room that same day and had unde rgone an exploratory laparotomy and extensive lysis of adhesions, resection of ilealcolic anastomosis, drainage of perihepatic loculated abscess with removal of CT-guided drain, small bowel resection for small bowel necrosis/perforation, placement of ileostomy, abdominal washout with 7 L of normal saline, debridement of abdominal wall midline incision, patient of the Moiz-Hanley in the right anterior lateral hepatic space, placement of Moiz-Hanley drain in the right pelvis, quarter-inch Don drain in the subcutaneous tissue midline incision and placement of Provena incisional wound VAC system. Severe abdominal sepsis secondary to E. coli, pseudomonas aeruginosa, enterococcus faecium. Remains on daptomycin and Zosyn. Septic shock secondary to above, currently requiring norepinephrine and vasopressin status post 8 L of fluid resuscitation currently off pressors and the patient remains on vasopressin physiologic dose of 0.03 units an minutes. Acute hypoxemic respiratory failure secondary to above currently requiring mechanical ventilation again following second surgery, remains intubated on a mechanical ventilator. Patient is also sedated and paralyzed. Febrile illness secondary to above Leukocytosis secondary to above Sinus tachycardia secondary to sepsis Acute kidney injury, improving and the renal function is improved since yesterday. Acute lactic acidosis secondary to sepsis History of colon cancer status post robotic-assisted laparoscopic extended right hemicolectomy on 08/29/2022 Intra-abdominal abscess Abdominal ascites History of sarcoidosis Plan: Continue ventilator support. No been changes for today Keep sedation with propofol The patient paralytic holiday Continue TPN Continue Zosyn, daptomycin monitor the CVP Continue fluid resuscitation Monitor the output from the ileostomy and the drains General surgery follow-up IVF to 75cc/hr Prognosis is guarded We will continue to follow Obviously the condition is critical. We'll continue to follow make further recommendations based on his progress. The plan for today is to give the pat ient paralytic holiday and will gradually wean off the sedation and assess his evidence to wean. Is off pressors this morning. We'll continue to follow. Critical care evaluation, more than 30 minutes. Time with Patient: Greater than 30
[2022-09-15] MEDS: CISATRACURIUM 200 MG in SODIUM CHLORIDE 0.9% 180 ML IV SCH ×2 (10:10→18:36)
[2022-09-15 11:10] LABS: Glucose,Whole Blood 220 mg/dL (70-110)
[2022-09-15 11:38] LABS: Glucose,Whole Blood 200 mg/dL (70-110)
[2022-09-15] MEDS ORDERED: 1: MVI, ADULT NO.4 WITH VIT K 10 ML, TRACE (CONC-1ML/DOSE) 1 ML, POTASSIUM PHOSPHATE 9 M IV SCH ×6 (14:00)
--- NOTE | 2022-09-15 14:30 | P.PN ---
Subjective Patient is seen for follow-up for acute kidney injury. Patient is currently on the vent. Patient was taken back to OR on 09/13/2022 and had drainage of perihepatic abscess and small bowel resection for bowel necrosis and perforation, placement of ileostomy, abdominal washout and debridement of abdominal wall midline incision. Patient was hypotensive and maintained on levo fed and vasopressin. Levo fed is currently discontinued Serum creatinine increased to 2.1 but down to 1.3 today and potassium was elevated at 6.6, Improved to 4.7 today Urine output at about 150 mL an hour. Currently maintained on saline. Started TPN as well as today Objective - Vital Signs Vital signs: Vital Signs Temp 99.3 F 09/15/22 12:00 Pulse 130 H 09/15/22 12:30 Resp 31 H 09/15/22 12:30 BP 130/73 09/15/22 08:45 Pulse Ox 98 09/15/22 12:30 FiO2 40 09/15/22 12:00 Intake & Output 09/14/22 09/15/22 09/15/22 18:59 06:59 18:59 Intake Total 5606.315 4562.906 2062.477 Output Total 3690 3175 1395 Balance 1620.064 6071.906 667.477 Weight 107.1 kg Intake: IV 3343 2838 1581 ACETAMINOPHEN IV (For NPO 50 ) 1,000 mg In Empty Bag 1 bag @ 400 mls/hr IVPB Q6HR [facility] Rx#:[id number] DAPTOmycin 500 mg In 100 150 Sodium Chloride 0.9% 50 ml @ 100 mls/hr IVPB Q24HR [facility] Rx#:[id number] Fat Emulsion 20% 250 ml 21 In Empty Bag 1 bag @ 21 mls/hr IV WeSa@1800 [facility] Rx#:[id number] Magnesium Sulfate-D5w Pmx 200 1 gm In Dextrose/Water 1 100ml.bag @ 100 mls/hr IVPB ONCE ONE Rx#: [id number] Mvi, Adult No.4 with Vit 324 561 K 10 ml Trace (Conc-1Ml/ Dose) 1 ml Sodium Acetate 60 meq Calcium Gluconate 1.5 gm Magnesium Sulfate gm 1 gm In Amino Acids 5 %/Dextrose 20 % 1,000 ml @ 108 mls/hr IV .BY DURATION [facility] Rx#: [id number] Piperacillin-Tazobactam 3 200 100 .375 gm In Sodium Chloride 0.9% 100 ml @ 25 mls/hr IVPB Q8HR [facility] Rx# :[id number] Sodium Acetate 60 meq 972 864 Calcium Gluconate 1.5 gm Magnesium Sulfate gm 1 gm In Amino Acids 5 %/ Dextrose 20 % 1,000 ml @ 108 mls/hr IV .BY DURATION [facility] Rx#: [id number] Sodium Chloride 0.9% 1, 1800 1650 770 000 ml @ 75 mls/hr IV . [id number] [facility] Rx#:[id number] Intake, IV Titration 0047.792 3549.906 481.477 Amount Cisatracurium 200 mg In 80.325 132.441 Sodium Chloride 0.9% 180 ml @ 2 MCG/KG/MIN 12.852 mls/hr IV .[id number] [facility] Rx #:[id number] Norepinephrine 8 mg In 483.878 241.468 Sodium Chloride 0.9% 250 ml @ 0.03 MCG/KG/MIN 6. 217 mls/hr IV .Q24H [facility] Rx#:[id number] Sodium Acetate 60 meq 1047 1047 Calcium Gluconate 1.5 gm Magnesium Sulfate gm 1 gm In Amino Acids 5 %/ Dextrose 20 % 1,000 ml @ 108 mls/hr IV .BY DURATION [facility] Rx#: [id number] Vasopressin 20 unit In 51 47.277 49.036 Sodium Chloride 0.9% 50 ml @ 0.03 UNITS/MIN 4.59 mls/hr IV .[id number] [facility] Rx# :[id number] propofoL 1,000 mg In 277.112 389.161 300 Empty Bag 1 bag @ 15 MCG/ KG/MIN 9.639 mls/hr IV . [id number] [facility] Rx#:[id number] TPN/PPN 324 Sodium Acetate 60 meq 324 Calcium Gluconate 1.5 gm Magnesium Sulfate gm 1 gm In Amino Acids 5 %/ Dextrose 20 % 1,000 ml @ 108 mls/hr IV .BY DURATION [facility] Rx#: [id number] Output: Gastric Drainage 300 Drainage 150 115 20 Left Lower Abdomen 70 85 10 Left Upper Abdomen 80 30 10 Urine 3540 2650 1375 Other 110 Other: Voiding Method Indwelling Catheter Indwelling Catheter ABP, PAP, CO, CI - Last Documented Arterial Blood Pressure 121/49 - Exam Patient is intubated and on the vent Examination of the heart S1 and S2 Examination of the lungs bilateral breath sounds are heard Abdomen shows incision is dressed drains are noted, ileostomy present Examination of the lower extremities shows no edema - Labs CBC & Chem 7: 09/15/22 05:00 09/15/22 05:00 Labs: Abnormal Lab Results - Last 24 Hours (Table) 09/14/22 09/14/22 09/15/22 Range/Units 14:45 17:07 00:00 WBC (3.8-10.6) k/uL RBC (4.30-5.90) m/uL Hgb (13.0-17.5) gm/dL Hct (39.0-53.0) % Neutrophils # (1.3-7.7) k/uL Lymphocytes # (1.0-4.8) k/uL ABG Total CO2 (19-24) mmol/L ABG O2 Saturation (94-97) % Potassium 5.2 H (3.5-5.1) mmol/L Chloride (98-107) mmol/L BUN (9-20) mg/dL Creatinine (0.66-1.25) mg/dL Glucose (74-99) mg/dL POC Glucose (mg/dL) 360 H 351 H (70-110) mg/dL Calcium (8.4-10.2) mg/dL Magnesium (1.6-2.3) mg/dL 09/15/22 09/15/22 09/15/22 Range/Units 05:00 05:00 06:07 WBC 18.8 H (3.8-10.6) k/uL RBC 2.62 L (4.30-5.90) m/uL Hgb 7.3 L D (13.0-17.5) gm/dL Hct 22.5 L (39.0-53.0) % Neutrophils # 17.1 H (1.3-7.7) k/uL Lymphocytes # 0.7 L (1.0-4.8) k/uL ABG Total CO2 (19-24) mmol/L ABG O2 Saturation (94-97) % Potassium (3.5-5.1) mmol/L Chloride 110 H (98-107) mmol/L BUN 27 H (9-20) mg/dL Creatinine 1.37 H (0.66-1.25) mg/dL Glucose 255 H (74-99) mg/dL POC Glucose (mg/dL) 271 H (70-110) mg/dL Calcium 7.0 L (8.4-10.2) mg/dL Magnesium 2.6 H (1.6-2.3) mg/dL 09/15/22 09/15/22 09/15/22 Range/Units 06:20 07:02 11:09 WBC (3.8-10.6) k/uL RBC (4.30-5.90) m/uL Hgb (13.0-17.5) gm/dL Hct (39.0-53.0) % Neutrophils # (1.3-7.7) k/uL Lymphocytes # (1.0-4.8) k/uL ABG Total CO2 26 H (19-24) mmol/L ABG O2 Saturation 98.7 H (94-97) % Potassium (3.5-5.1) mmol/L Chloride (98-107) mmol/L BUN (9-20) mg/dL Creatinine (0.66-1.25) mg/dL Glucose (74-99) mg/dL POC Glucose (mg/dL) 262 H 220 H (70-110) mg/dL Calcium (8.4-10.2) mg/dL Magnesium (1.6-2.3) mg/dL 09/15/22 Range/Units 11:36 WBC (3.8-10.6) k/uL RBC (4.30-5.90) m/uL Hgb (13.0-17.5) gm/dL Hct (39.0-53.0) % Neutrophils # (1.3-7.7) k/uL Lymphocytes # (1.0-4.8) k/uL ABG Total CO2 (19-24) mmol/L ABG O2 Saturation (94-97) % Potassium (3.5-5.1) mmol/L Chloride (98-107) mmol/L BUN (9-20) mg/dL Creatinine (0.66-1.25) mg/dL Glucose (74-99) mg/dL POC Glucose (mg/dL) 200 H (70-110) mg/dL Calcium (8.4-10.2) mg/dL Magnesium (1.6-2.3) mg/dL Microbiology - Last 24 Hours (Table) 09/11/22 13:00 Gram Stain - Final Aspirate Body Fluid Culture - Final Escherichia coli Assessment and Plan Assessment: 1. Acute kidney injury, nonoliguric ischemic ATN from hypotension and sepsis. Good urine output. Improved. 2. Intra-abdominal abscess status post explorative laparotomy and further colon resection and drainage of abscess with lysis of adhesions. Patient was taken back to or yesterday on 09/13/2022 and had further bowel resection and drainage of abscess and abdominal washout. 3. Colon cancer status post initial partial colectomy on 08/29/2022 4. Hyperkalemia associated with acute kidney injury and significant hyperglycemia. 5. Sepsis from intra-abdominal abscess Plan: Agree with decreasing saline. Patient is also maintained on TPN. Repeat labs in a.m.
[2022-09-15] MEDS: fentaNYL (PF). 1,000 MCG in SODIUM CHLORIDE 0.9% 80 ML IV SCH ×2 (14:48→22:34)
[2022-09-15] MEDS: 1: MVI, ADULT NO.4 WITH VIT K 10 ML, TRACE (CONC-1ML/DOSE) 1 ML, POTASSIUM PHOSPHATE 9 M IV SCH ×6 (17:01)
[2022-09-15 17:44] LABS: Glucose,Whole Blood 140 mg/dL (70-110)
[2022-09-15] MEDS: ACETAMINOPHEN IV (For NPO) 1,000 MG in EMPTY BAG 1 BAG IVPB PRN (19:55)
[2022-09-15 23:57] LABS: Glucose,Whole Blood 144 mg/dL (70-110)
[2022-09-16] MEDS: METOCLOPRAMIDE 5 MG/ML 2 ML VIAL IVP SCH ×4 (00:10→17:47)
[2022-09-16] MEDS: PIPERACILLIN-TAZOBACTAM 3.375 GM in SODIUM CHLORIDE 0.9% 100 ML IVPB SCH ×4 (00:10→16:18)
[2022-09-16] MEDS: INSULIN ASPART (NovoLOG) 100 UNIT/ML VIAL SQ SCH ×4 (00:10→18:18)
[2022-09-16] MEDS: IPRATROPIUM-ALBUTEROL 3 ML NEB INHALATION SCH ×6 (00:35→21:11)
[2022-09-16 00:55] LABS: % Iron Saturation 7.41 (15.00-50.00)
[2022-09-16] MEDS: SODIUM CHLORIDE 0.9% 1,000 ML IV SCH (00:55)
[2022-09-16] MEDS: VASOPRESSIN 20 UNIT in SODIUM CHLORIDE 0.9% 50 ML IV SCH ×2 (01:01→15:10)
[2022-09-16] MEDS: ACETAMINOPHEN IV (For NPO) 1,000 MG in EMPTY BAG 1 BAG IVPB PRN (03:14)
[2022-09-16 04:40] LABS: Allen Test Performed? Yes
--- NOTE | 2022-09-16 04:51 | P.PN ---
Subjective Progress Note Date: 09/15/22 This is a 52 year old male monitored in the intensive care unit postoperative day #4 lysis of adhesions and right hemicolectomy due to bowel perforation. Patient had end to end anastamosis. Has not had bowel movement, had KUB xray today showing multiple dilated small bowel loops possible ileus vs. obstruction. General surgery recommending patient to be NPO at this time. Heart rate remains elevated in the 120s and patient switched to IV lopressor. Remains on IV daptomycin and IV zosyn for positive peritoneal fluid culture with E. Coli, enterococcus and pseudomonas. Blood culture negative so far. Patient remains on D5 water at 100 mls/hr, sodium is slightly improved today down to 146. Continues on TPN, NG tube has been discontinued. Accuchecks switched to Q6h and small dose of levemir HS has been added. SARAI drain in place with serous drainage. Patient febrile today up to 101.9, encouraged to continue with incentive spirometer. Patient has wound vac in place to continuous suction, plan to ambulate around the room and up in the chair today. 09/09/2022 Patient is evaluated today in the ICU resting in bed. Alert x 3. Asking about discharge. Repeat blood culture is pending patient remains on IV antibiotics. White count up to 19.7 today. Patient reports BM yesterday and passing some gas today. Abdomen is more distended. Surgery recommending NG tube today. Patient remains NPO. Midline incisional wound vac in place. Patient remains with fever, using incentive spirometer reaching 1200. Continues on TPN. 09/10/2022 Patient remains in the intensive care unit. Patient continues to be NPO. 3 attempts were made to pass NG tube and were unsuccessful. Patient did have 2 BMs yesterday, abdomen remains significantly distended. Repeat abdominal pelvis CT reveals loculated and nonloculated perihepatic collections some of which demonstrate mildly thickened almeida with internal foci of air. Perihepatic abscesses are not excluded. Persistent dilation of small bowel with small bowel wall thickening and inflammatory change at the enterocolonic anastomotic site. Persistent postoperative ileus and/or obstructive changes not excluded. Adjacent drain is in place. Contrast does not opacify the anastomotic site and therefore leak is difficult to evaluate or exclude. Small amt of free air persists improved from prior study. White count 18.3 today, electrolytes are normalized and blood glucose improved to 115. Patient remains on TPN. Blood culture remains negative. Remains on IV zosyn and IV daptomycin. Temp of 100.4 and remains tachycardic 121, blood pressure stable at 131/94. 09/11/2022 Patient is evaluated today in the intensive care unit. Remains tachycardic and T-Max of 100.7 overnight. Scheduled to undergo drainage and placement of drainage tube to the perihepatic abscess noted on CT imaging with IR today. White count down to 16.0 today. Continues on IV daptoymcin and IV vancomycin. Per nursing did have a small BM overnight. 09/12/2022 Patient evaluated today in the intensive care unit. Underwent CT guided abscess drainage with 100 mls of purulent drainage and also had midline fransisca removed at the top of incision with some purulent drainage. Patients white count is down to 12.8 today. Kidney function stable, sodium 135 today. Patient has been cleared to start diet, having small BMs. Metoprolol will be changed to oral. Fever is improving. Cultures are pending from the abscess and ID is following closely. 09/13/2022 Patient continues to be monitored closely in the intensive care unit. Patient continues with significant tachycardia not improving with metoprolol and continues with abdominal distention. Cardiology was placed on consultation for the tachycardia and patient has been transitioned back to IV lopressor. Wound cultures from the CT guided are showing gram negative bacilli. This morning per nursing the abdomen was more distended and patient had felt a popping sensation with evidence of leaking of brown colored drainage from the surgical incision and the drainage bag. The surgical incision was opened yesterday at the bedside by surgery. Patient was taken for emergent exploratory laporotomy. White count is 17.9 today, sodium 134, potassium 5.0. Kidney function remains stable. Patient has been continued to be NPO no NG tube present. Labs and vitals reviewed. 09/14/2022 Patient is evaluated today he is currently in the intensive care unit intubated and sedated he is on combination of nimbex and propofol. Patient is currently on the mechanical ventilator with 40% FiO2. Patient is also requiring levophed and vasopression. Patient continues on IV daptomycin and IV zosyn. The wound culture shows E.Coli. Patient underwent extensive exploratory laporotomy yesterday with lysis of adhesions, resection of the ileocolic anastamosis due to anastomotic leak, small bowel resection for small bowel necrosis/peforation with placement of ileostomy. Patient had nataliia-stone drain x 2 placed and alpa drain placed. Abdomen was closed with a wound vac. Temp is T-max 100.4 today. Labs reveal white count of 20.1, hgb 9.3, sodium 131, potassium at 6.6 and 5.9, BUN 32, creatinine 2.15, blood glucose 394, calcium 6.4, magnesium 1.4. Patient rece ived IV magnesium, IV gluconate, and IV insulin humulin N. 09/15/2022 Patient is seen in a follow-up continues to be in the ICU with multiple medical consultations following. Patient continues on mechanical ventilation with an FiO2 of 40% and PEEP is 5. Patient is maintained on IV antibiotics in the form of Niacin and Zosyn with Infectious Disease Following Closely and Culture Showing E. coli with Multiple Sensitivities. Patient Continues to Have Fevers and White Count Elevated Slightly Trending down to 18 Today. Recent Ileostomy Placed with No Function at This Time and Patient Is Maintained on TPN. Patient Continues with Drains along with a Wound VAC of the Abdomen. Hemoglobin Julio nding down and upon Stopping Currently Would Recommend Monitoring Closely and Transfuse of 7 or Less. Nephrology Following As Well This Patient's Kidney Functions Worsened Although Appear Better Today. Patient Remains Tachycardic on the Monitor and Troponins Have Been Negative. Recommend Continuing with Accu- Cheks per Protocol and Tight Glycemic Control. Review of systems: Unable to complete is patient is currently intubated and sedated in the ICU Active Medications Albuterol/Ipratropium (Ipratropium-Albuterol 3 Ml Neb) 3 ml INHALATION RT-Q4H [facility] Last Admin: 09/15/22 14:35 Dose: 3 ml Artificial Tears (Artificial Tears-Hypromellose Drops 15 Ml Btl) 2 drops BOTH EYES QID [facility] Last Admin: 09/15/22 12:03 Dose: 2 drops Chlorhexidine Gluconate (Chlorhexidine Gluconate 15 Ml Cup) 15 ml MUCOUS MEM BID [facility] Last Admin: 09/15/22 08:07 Dose: 15 ml Heparin Sodium (Porcine) (Heparin Sodium,Porcine/Pf 5,000 Unit/0.5 Ml Syringe) 5,000 unit SQ Q12HR [facility] Last Admin: 09/15/22 08:08 Dose: 5,000 unit Hydromorphone HCl (Hydromorphone 1 Mg/Ml 1 Ml Syringe) 1 mg IVP Q3HR PRN PRN Reason: Moderate to Severe Pain (4-10) Last Admin: 09/15/22 12:40 Dose: 1 mg Hydromorphone HCl (Hydromorphone 0.5 Mg/0.5 Ml Syringe) 0.5 mg IVP Q1HR PRN PRN Reason: Pain Last Admin: 09/14/22 16:22 Dose: 0.5 mg Piperacillin Sod/Tazobactam (Sod 3.375 gm/ Sodium Chloride) 100 mls @ 25 mls/hr IVPB Q8HR [facility]; Protocol Last Admin: 09/15/22 08:07 Dose: 25 mls/hr Daptomycin 500 mg/ Sodium (Chloride) 50 mls @ 100 mls/hr IVPB Q24HR [facility]; Protocol Last Admin: 09/15/22 08:08 Dose: 100 mls/hr Fat Emulsion Intravenous 250 (ml/ IV Solution) 250 mls @ 21 mls/hr IV [id number]@1800 [facility] Last Admin: 09/13/22 22:42 Dose: 21 mls/hr Sodium Chloride (Saline 0.9%) 1,000 mls @ 75 mls/hr IV .[id number] [facility] Last Admin: 09/15/22 14:35 Dose: 75 mls/hr Propofol 1,000 mg/ IV Solution 100 mls @ 9.639 mls/hr IV .[id number] [facility]; Protocol Last Admin: 09/15/22 14:37 Dose: 75 mcg/kg/min, 48.195 mls/hr Cisatracurium Besylate 200 mg/ (Sodium Chloride) 200 mls @ 12.852 mls/hr IV .[id number] [facility]; Protocol Last Titration: 09/15/22 12:51 Dose: 0 mcg/kg/min, 0 mls/hr Norepinephrine Bitartrate 8 mg (/ Sodium Chloride) 258 mls @ 6.217 mls/hr IV .Q24H [facility]; Protocol Last Titration: 09/15/22 05:19 Dose: 0.02 mcg/kg/min, 4.145 mls/hr Vasopressin 20 unit/ Sodium (Chloride) 51 mls @ 4.59 mls/hr IV .[id number] [facility]; Protocol Last Admin: 09/15/22 07:40 Dose: 0.03 units/min, 4.59 mls/hr Fentanyl Citrate 1,000 mcg/ (Sodium Chloride) 100 mls @ 5.355 mls/hr IV .[id number] [facility]; Protocol Last Admin: 09/15/22 14:48 Dose: 0.5 mcg/kg/hr, 5.355 mls/hr Parenteral Vitamin Supplement 10 ml/ Zinc/Copper/Manganese/Selenium 1 ml/ Potassium Phosphate 9 mmol/ Sodium Acetate 60 meq/ Calcium Gluconate 1.5 gm/ Amino Acids/Dextrose 1,059 mls @ 43 mls/hr IV .BY DURATION [facility] Potassium Phosphate 9 mmol/Sodium Acetate 60 meq/ Calcium Gluconate 1.5 gm/ Amino Acids /Dextrose 1,048 mls @ 43 mls/hr IV .BY DURATION [facility] Insulin Aspart (Insulin Aspart (Novolog) 100 Unit/Ml Vial) 3 unit SQ Q6HR [facility] Last Admin: 09/15/22 12:01 Dose: 3 unit Insulin Detemir (Insulin Detemir (Levemir) 100 Unit/Ml Syr) 10 unit SQ BID@0700,2100 [facility] Last Admin: 09/15/22 06:13 Dose: 10 unit Metoclopramide HCl (Metoclopramide 5 Mg/Ml 2 Ml Vial) 10 mg IVP Q6H [facility] Last Admin: 09/15/22 11:58 Dose: 10 mg Miscellaneous Information (Potassium Replacement Protocol 1 Each Misc) 1 each MISCELLANE DAILY PRN PRN Reason: Per Protocol Miscellaneous Information (Phosphorus Replacement Protoco 1 Each Misc) 1 each MISCELLANE DAILY PRN; Protocol PRN Reason: Per Protocol Miscellaneous Information (Magnesium Replacement Protocol 1 Each Misc) 1 each MISCELLANE DAILY PRN; Protocol PRN Reason: Per Protocol Naloxone HCl (Naloxone 0.4 Mg/Ml 1 Ml Vial) 0.2 mg IV Q2M PRN PRN Reason: Opioid Reversal Ondansetron HCl (Ondansetron 4 Mg/2 Ml Vial) 4 mg IVP Q8HR PRN PRN Reason: Nausea And Vomiting Last Admin: 09/09/22 17:04 Dose: 4 mg Pantoprazole Sodium (Pantoprazole 40 Mg/10 Ml Vial) 40 mg IV DAILY [facility] Last Admin: 09/15/22 08:07 Dose: 40 mg PHYSICAL EXAMINATION: GENERAL: This is a 52-year-old male who is Currently intubated and sedated, Well developed, well nourished. Obese HEENT: Pupils are round and equally reacting to light. EOMI. No scleral icterus. No conjunctival pallor. Normocephalic, atraumatic. No pharyngeal erythema. No thyromegaly. CARDIOVASCULAR: S1 and S2 muffled. Tachycardic. PULMONARY: Diminished breath sounds bilaterally with some coarse rhonchi noted ABDOMEN: Soft, Postsurgical drain x 3 present midline wound vac. ileostomy. distended, No bowel sounds. No palpable organomegaly. MUSCULOSKELETAL: No joint swelling or deformity. EXTREMITIES: No cyanosis, clubbing, generalized edema noted of bilateral upper and lower extremities NEUROLOGICAL: Unable to complete physical exam patient is currently intubated and sedated. SKIN: No rashes. Assessment: Sepsis secondary to perforated diverticulum postoperative day #10 evacuation of abscess, lysis of adhesions, right hemicolectomy. Postoperative day #2 lysis of adhesions, resection of ileocolic anastamosis due to anastomotic leak, small bowel resection for small bowel necrosis/perforation and placement of ileostomy. Status post CT guided drainage of abscess on 09/11/22 cultures showing E.Coli. Postoperative ileus Fever and persistent sinus tachycardia due to septic shock patient is now on vasopressin Colon cancer s/p resection on 08/29/2022 Acute kidney injury secondary to ATN and sepsis Hyperkalemia Hyperglycemia Leukocytosis Hypernatremia resolved Hx hyperlipidemia Sarcoidosis with asthma Nicotine use GI prophylaxis DVT prophylaxis Full Code Plan: Continue IV antibiotics, infectious disease following closely. Patient culture showing E. coli with multiple sensitivities and maintained on vancomycin along with Zosyn Patient continues to be febrile and blood cultures have been repeated and pending negative so far Continue CBG Q6h hour and novolog s/s q6h. scheduled insulin added and levemir is increased, patient may require insulin gtt. patient is continued on TPN Cardiology following and patient remains tachycardic. Troponins are negative Follow up AM labs. Due to multiple complex medical issues, prognosis is extremely guarded We will continue to follow with surgery during hospitalization. Thank you kindly for this consultation The impression and plan of care has been dictated by Laurie Sesay, Nurse Practitioner as directed. Dr. Jeb MD I have performed a history and examination and MDM of this patient, discussed the same with the dictator, and agree with the dictator's assessment and plan as written ,documented as a scribe. Based on total visit time, I have performed more than 50% of the visit. Objective - Vital Signs Vital signs: Vital Signs Temp 99.3 F 09/15/22 13:36 Pulse 121 H 09/15/22 14:50 Resp 29 H 09/15/22 14:50 BP 120/49 09/15/22 13:36 Pulse Ox 97 09/15/22 13:36 FiO2 40 09/15/22 14:35 Intake & Output 09/14/22 09/15/22 09/15/22 18:59 06:59 18:59 Intake Total 5606.315 4562.906 2162.477 Output Total 3690 3175 1395 Balance 2311.464 3003.906 767.477 Weight 107.1 kg Intake: IV 3343 2838 1581 ACETAMINOPHEN IV (For NPO 50 ) 1,000 mg In Empty Bag 1 bag @ 400 mls/hr IVPB Q6HR [facility] Rx#:[id number] DAPTOmycin 500 mg In 100 150 Sodium Chloride 0.9% 50 ml @ 100 mls/hr IVPB Q24HR [facility] Rx#:[id number] Fat Emulsion 20% 250 ml 21 In Empty Bag 1 bag @ 21 mls/hr IV WeSa@1800 [facility] Rx#:[id number] Magnesium Sulfate-D5w Pmx 200 1 gm In Dextrose/Water 1 100ml.bag @ 100 mls/hr IVPB ONCE ONE Rx#: [id number] Mvi, Adult No.4 with Vit 324 561 K 10 ml Trace (Conc-1Ml/ Dose) 1 ml Sodium Acetate 60 meq Calcium Gluconate 1.5 gm Magnesium Sulfate gm 1 gm In Amino Acids 5 %/Dextrose 20 % 1,000 ml @ 108 mls/hr IV .BY DURATION [facility] Rx#: [id number] Piperacillin-Tazobactam 3 200 100 .375 gm In Sodium Chloride 0.9% 100 ml @ 25 mls/hr IVPB Q8HR [facility] Rx# :[id number] Sodium Acetate 60 meq 972 864 Calcium Gluconate 1.5 gm Magnesium Sulfate gm 1 gm In Amino Acids 5 %/ Dextrose 20 % 1,000 ml @ 108 mls/hr IV .BY DURATION [facility] Rx#: [id number] Sodium Chloride 0.9% 1, 1800 1650 770 000 ml @ 75 mls/hr IV . [id number] [facility] Rx#:[id number] Intake, IV Titration 3997.097 2445.906 581.477 Amount Cisatracurium 200 mg In 80.325 132.441 Sodium Chloride 0.9% 180 ml @ 2 MCG/KG/MIN 12.852 mls/hr IV .[id number] [facility] Rx #:[id number] Norepinephrine 8 mg In 483.878 241.468 Sodium Chloride 0.9% 250 ml @ 0.03 MCG/KG/MIN 6. 217 mls/hr IV .Q24H [facility] Rx#:[id number] Sodium Acetate 60 meq 1047 1047 Calcium Gluconate 1.5 gm Magnesium Sulfate gm 1 gm In Amino Acids 5 %/ Dextrose 20 % 1,000 ml @ 108 mls/hr IV .BY DURATION [facility] Rx#: [id number] Vasopressin 20 unit In 51 47.277 49.036 Sodium Chloride 0.9% 50 ml @ 0.03 UNITS/MIN 4.59 mls/hr IV .[id number] [facility] Rx# :[id number] propofoL 1,000 mg In 277.112 389.161 400 Empty Bag 1 bag @ 15 MCG/ KG/MIN 9.639 mls/hr IV . [id number] [facility] Rx#:[id number] TPN/PPN 324 Sodium Acetate 60 meq 324 Calcium Gluconate 1.5 gm Magnesium Sulfate gm 1 gm In Amino Acids 5 %/ Dextrose 20 % 1,000 ml @ 108 mls/hr IV .BY DURATION [facility] Rx#: [id number] Output: Gastric Drainage 300 Drainage 150 115 20 Left Lower Abdomen 70 85 10 Left Upper Abdomen 80 30 10 Urine 3540 2650 1375 Other 110 Other: Voiding Method Indwelling Catheter Indwelling Catheter Indwelling Catheter ABP, PAP, CO, CI - Last Documented Arterial Blood Pressure 121/49 - Labs CBC & Chem 7: 09/15/22 05:00 09/15/22 05:00 Labs: Abnormal Lab Results - Last 24 Hours (Table) 09/14/22 09/15/22 09/15/22 Range/Units 17:07 00:00 05:00 WBC (3.8-10.6) k/uL RBC (4.30-5.90) m/uL Hgb (13.0-17.5) gm/dL Hct (39.0-53.0) % Neutrophils # (1.3-7.7) k/uL Lymphocytes # (1.0-4.8) k/uL ABG Total CO2 (19-24) mmol/L ABG O2 Saturation (94-97) % Chloride 110 H (98-107) mmol/L BUN 27 H (9-20) mg/dL Creatinine 1.37 H (0.66-1.25) mg/dL Glucose 255 H (74-99) mg/dL POC Glucose (mg/dL) 360 H 351 H (70-110) mg/dL Calcium 7.0 L (8.4-10.2) mg/dL Magnesium 2.6 H (1.6-2.3) mg/dL 09/15/22 09/15/22 09/15/22 Range/Units 05:00 06:07 06:20 WBC 18.8 H (3.8-10.6) k/uL RBC 2.62 L (4.30-5.90) m/uL Hgb 7.3 L D (13.0-17.5) gm/dL Hct 22.5 L (39.0-53.0) % Neutrophils # 17.1 H (1.3-7.7) k/uL Lymphocytes # 0.7 L (1.0-4.8) k/uL ABG Total CO2 26 H (19-24) mmol/L ABG O2 Saturation 98.7 H (94-97) % Chloride (98-107) mmol/L BUN (9-20) mg/dL Creatinine (0.66-1.25) mg/dL Glucose (74-99) mg/dL POC Glucose (mg/dL) 271 H (70-110) mg/dL Calcium (8.4-10.2) mg/dL Magnesium (1.6-2.3) mg/dL 09/15/22 09/15/22 09/15/22 Range/Units 07:02 11:09 11:36 WBC (3.8-10.6) k/uL RBC (4.30-5.90) m/uL Hgb (13.0-17.5) gm/dL Hct (39.0-53.0) % Neutrophils # (1.3-7.7) k/uL Lymphocytes # (1.0-4.8) k/uL ABG Total CO2 (19-24) mmol/L ABG O2 Saturation (94-97) % Chloride (98-107) mmol/L BUN (9-20) mg/dL Creatinine (0.66-1.25) mg/dL Glucose (74-99) mg/dL POC Glucose (mg/dL) 262 H 220 H 200 H (70-110) mg/dL Calcium (8.4-10.2) mg/dL Magnesium (1.6-2.3) mg/dL Microbiology - Last 24 Hours (Table) 09/11/22 13:00 Gram Stain - Final Aspirate Body Fluid Culture - Final Escherichia coli
[2022-09-16 05:38] LABS: African American GFR (CKD) 83 (>60 ml/min/1.73 sqM); Anion Gap 6 mmol/L; Blood Urea Nitrogen 26 mg/dL (9-20); Calcium 7.5 mg/dL (8.4-10.2); Carbon Dioxide 24 mmol/L (22-30); Chloride 109 mmol/L (98-107); Glucose 129 mg/dL (74-99); Magnesium 2.3 mg/dL (1.6-2.3); Non-African American GFR(CKD) 72 (>60 ml/min/1.73 sqM); Phosphorus 2.9 mg/dL (2.5-4.5); Potassium 4.6 mmol/L (3.5-5.1); Sodium 139 mmol/L (137-145)
[2022-09-16 05:48] LABS: Glucose,Whole Blood 140 mg/dL (70-110)
[2022-09-16] MEDS: INSULIN DETEMIR (LEVEMIR) 100 UNIT/ML SYR SQ SCH ×2 (05:50→21:32)
[2022-09-16 05:55] LABS: ABG Base Excess 2.7 mmol/L; ABG HCO3 27 mmol/L (21-25); ABG Oxygen Saturation 99.3 % (94-97); ABG PCO2 38 mmHg (35-45); ABG PH 7.46 (7.35-7.45); ABG PO2 116 mmHg (83-108); ABG TCO2 28 mmol/L (19-24)
[2022-09-16 06:17] LABS: Basophils % (A) 0 %; Eosinophils # (A) 0.2 k/uL (0-0.7); Eosinophils % (A) 1 %; Hypochromasia Slight; Lymphocytes # (A) 0.7 k/uL (1.0-4.8); Lymphocytes % (A) 4 %; MCH 27.2 pg (25.0-35.0); MCHC 32.1 g/dL (31.0-37.0); MCV 84.5 fL (80.0-100.0); Mean Platelet Volume 8.3; Monocytes # (A) 0.5 k/uL (0-1.0); Monocytes % (A) 3 %; Neutrophils # (A) 14.8 k/uL (1.3-7.7); Neutrophils % (A) 90 %; Platelet Count 433 k/uL (150-450); RBC 2.32 m/uL (4.30-5.90); RDW 15.3 % (11.5-15.5); WBC 16.3 k/uL (3.8-10.6)
[2022-09-16 06:18] LABS: HCT 19.6 % (39.0-53.0); HGB 6.3 gm/dL (13.0-17.5)
--- NOTE | 2022-09-16 08:19 | XR ---
EXAMINATION TYPE: XR chest 1V portable DATE OF EXAM: 09/16/2022 COMPARISON: 09/15/2022 HISTORY: Shortness of breath TECHNIQUE: Single frontal view of the chest is obtained. FINDINGS: Bilateral lower lobe infiltrate and small right effusion. There is a calcification along t he right diaphragmatic surface. ET and NG tube and central line stable in position. No overt failure or pneumothorax. IMPRESSION: 1. Stable bilateral infiltrates and small effusion.
[2022-09-16] MEDS: CHLORHEXIDINE GLUCONATE 15 ML CUP MUCOUS MEM SCH ×2 (08:32→21:32)
[2022-09-16] MEDS: PANTOPRAZOLE 40 MG/10 ML VIAL IV SCH (08:32)
[2022-09-16] MEDS: HEPARIN SODIUM,PORCINE/PF 5,000 UNIT/0.5 ML SYRINGE SQ SCH ×2 (08:33→21:32)
--- NOTE | 2022-09-16 09:38 | P.PN ---
Subjective Progress Note Date: 09/16/22 This is a 52-year-old -[place] male with history of colon cancer, status post right hemicolectomy for cecal colon cancer on 08/29/2022. Patient was discharged uneventfully on Percocet and Motrin for pain control. Patient was readmitted on 09/03/2022, he was mostly admitted with abdominal pain, distention, nausea and vomiting which started a few days prior to his admission. Patient was seen by surgery on consultation, and he was found to have acute pneumoperitoneum. Yesterday, the patient underwent robotic-assisted laparoscopic extensive lysis of adhesions open exploratory laparotomy with right hemicolectomy and primary anastomosis drainage of abdominal abscess abdominal peritoneal lavage, Margarita spent of a SARAI drain in the pelvis and placement of the incisional wound VAC system. I was notified about this patient from Dr. Moeller yesterday, and considering his abdominal sepsis presentation considering his surgical findings considering the patient was not extubated postoperatively, we admitted the patient to the ICU, manage his ventilator overnight, and I'm evaluating the patient today on consultation. Patient had a relatively uneventful night, did not require any pressors, he did receive fluids and he seems to be hemodynamically stable, remains on mechanical ventilation. H is ventilator settings at this point are assist control rate of 18 tidal volume 500 FiO2 40% and PEEP of 5 recent ABG showed a pO2 of 79 pCO2 39 pH of 7.42 patient is on vancomycin and Zosyn for his abdominal sepsis he is on propofol at 65 mcg/kg/m he has good urine output roughly 30-50 mL per hour. Patient has a nasogastric tube applied to suction and he has a wound VAC. He also has a SARAI drain noted. Patient is sedated and calm, however I would recommend a trial of sedation interruption and possibly weaning parameters, if tolerated may consider further weaning and extubation today. Labs today showed relatively normal CBC WBC count is 8.6 hemoglobin is 10.4. Elect lites are normal BUN is 23 creatinine 1.36. Reevaluated today on 09/06/2022, patient remains in the ICU, patient was ext ubated yesterday and he tolerated extubation well over the last 24 hours. He is on 2 L nasal cannula, not in any distress. Continues to have significant nasogastric output. Patient is to be started on TPN today. Doing better than expected overall. Remains on antibiotics for his abdominal sepsis. White count is 11.8 today hemoglobin is 9.6. Elect lites are normal renal profile is normal with a creatinine of 1.14, improving since admission from 2.14 on admission. Patient is compliant with his incentive spirometry and doing a good job with I- S. Reevaluated today on 09/07/2022, patient remains in the ICU, he feels generally weak, denies any shortness of breath, no cough, no wheezing. Continues to have nasogastric tube in place, and he had 1 50 mL of output overnight. Patient on TPN for nutritional support. His sodium was noted to be elevated today, and I recommended switching his IV fluid to D5W at 100 mL per hour. His labs otherwise are unremarkable. Patient is doing well with incentive spirometry, pain is fairly well controlled. Renal profile is normal, WBC count is 11.8 hemoglobin is 9.6 The patient is seen today 09/08/2022 in follow-up in the intensive care unit. Danny jordan is currently resting comfortably in bed. Awake and alert in no acute distress. He is maintaining good O2 saturations in the mid 90s on room air. He is febrile with a temp of 101.9. Tachycardic. Hypertensive. Blood cultures pending. Abdominal x-ray revealed persistent markedly dilated small bowel loops. Peritoneal fluid cultures were positive for E. coli, Pseudomonas aeruginosa, enterococcus faecium. He remains nothing by mouth. He is continued on TPN and lipids. Antibiotics in the form of Zosyn and now daptomycin. Remains on heparin for DVT prophylaxis. He is up ambulating with assistance. The patient is seen today 09/09/2022 in follow-up in the intensive care unit. He is currently resting comfortably in bed. Awake and alert in no acute distress. White count 19.7. Hemoglobin 9.4. Platelets 245. Sodium 141. Potassium 3.9. Bicarb 24. BUN 14. Creatinine 0.78. Glucose 139. He is maintaining good O2 saturations in the mid 90s on room air. Continues with a low-grade fever currently at 100.8. Tachycardic. He is continued on TPN 108 ML's per hour. He has D5W it 100 ML's per hour. 0.9 normal setting at KVO. He is on antibiotics in the form of Zosyn and daptomycin. He is working well with the incentive spirometer. Remains on strict nothing by mouth per surgical services. The patient is seen today 09/10/2022 in follow-up in the intensive care unit. He is currently resting fairly comfortably in bed. Awake and alert in no acute distress. Chest x-ray shows improving bilateral infiltrate and small effusion. He continues to maintain good O2 saturations in the 90s on room air. Some abdominal distention and discomfort. Follow-up computed tomography scan pending. Still have an elevated temperatures up to 102.4 last night. White count 18.3. Hemoglobin 8.8. Sodium 139. Potassium 4.0. Bicarb 24. BUN 14. Creatinine 0.83. He remains on daptomycin and Zosyn. Being nourished with TPN at 108 ML's per hour. Heparin for DVT prophylaxis. The patient is seen today 09/11/2022 in follow-up in the intensive care unit. He is currently resting in bed. Awake and alert in no acute distress. Maintaining good O2 saturations in the 90s on room air. His initial peritoneal fluid cultures were positive for E. coli, pseudomonas aeruginosa, enterococcus faecium. Follow-up blood cultures are pending. He did have issues with abdominal distention. Follow-up computed tomography scan revealed loculated and non-loculated. Hepatic collections some of which demonstrate mildly thickened almeida with internal foci of air.. Hepatic abscesses are not excluded. Persistent dilatation of the small bowel small bowel wall thickening and inflammatory change in the interval colonic anastomotic site. Persistent postoperative ileus and/or obstructive change is not excluded. Adjacent drains in place. Leak is difficult to exclude. Small amount of free air persistent but improved. Chest x-ray reveals stable bilateral lower lobe infiltrate and small effusion. Left-sided PICC line remains in place. White count 16.0. Hemoglobin 9.1. Platelets 270. Sodium 136. Potassium 4.3. Bicarb 24. BUN 15. Creatinine 0.90. Glucose 124. He is continued on daptomycin and Zosyn. Continues to work with the incentive spirometer. Heparin for DVT prophylaxis. Being nourished with TPN at 108 ML's per hour. The patient is seen today 09/12/2022 in follow-up in the intensive care unit. He is currently resting comfortably in bed. Awake and alert in no acute distress. Maintaining O2 saturations in the 90s on room air. Working well with the incentive spirometer. He did undergo a a CT-guided abscess drainage of the liver yesterday with 100 purulent fluid removed. He also had several fransisca removed from his abdominal wound that drained fluid as well. Cultures are pending. A venous. Brashear fluid cultures were positive for E. coli, pseudom onas aeruginosa, enterococcus faecium. White count 12.8. He will been 8.8. Platelets 302. Sodium 135. Potassium 4.8. Bicarb 24. BUN 15. Creatinine 0.79. Glucose 149. He remains on TPN at 180 MLS per hour. Continued on Zosyn and daptomycin. The patient is seen today 09/13/2022 in follow-up in the intensive care unit. He remains awake and alert. Maintaining O2 saturations in the 90s on room air. Slightly febrile at 99.6. He is tachycardic. He has been having issues now with stool and air oozing from his abdominal surgical site. Apparently he had a coughing episode and had some dehiscence in the supraumbilical location. There is also air seen from the abdominal cavity coming to the staple line. Surgical services are following and plans for return to the OR this morning. His body fluid cultures had previously been positive for E. coli, pseudomonas aeruginosa, enterococcus facing him. Wound culture still positive with gram-negative bacilli. He's been continued on daptomycin and Zosyn. White count 17.9. Hemoglobin 9.0. Platelets 458. Sodium 134. Potassium 5.0. Bicarb 21. BUN 16. Creatinine 0.01. Glucose 136. He remains on TPN at 108 ML's per hour. Lipids on Wednesdays and Saturdays. Heparin for DVT prophylaxis. Dilaudid for pain control. The patient is seen today 09/14/2022 in follow-up in the intensive care unit. He did end up going back to surgery yesterday. This is quite extensive and lasting nearly 7 hours. He had undergone an exploratory laparotomy and extensive lysis of adhesions, resection of ilealcolic anastomosis, drainage of perihepatic loculated abscess with removal of CT-guided drain, small bowel resection for small bowel necrosis/perforation, placement of ileostomy, abdominal washout with 7 L of normal saline, debridement of abdominal wall midline incision, patient of the Moiz-Hanley in the right anterior lateral hepatic space, placement of Moiz-Hanley drain in the right pelvis, quarter-inch Don drain in the subcutaneous tissue midline incision and placement of Provena incisional wound VAC system. He was returned to the intensive care unit on the mechanical ventilator. Current settings are assist-control mode of 28, tidal volume 500, FiO2 40% and a PEEP of 5. Morning blood gases revealed a pO2 of 184, pCO2 of 41, pH 7.31 on 50% FiO2. White count 20.1. Hemoglobin 9.3. Platelets 41. Sodium 131. Potassium initially 6.6 corrected to 5.9, bicarb 20, BUN 32. Creatinine 2.15. Glucose 379. Magnesium 1.4. Chest x-ray reveals bibasilar atelectasis. No evidence of pneumothorax. Endotracheal and gastric tube secured in place. Left-sided PICC line in place. Follow-up abdominal wound culture positive for E. coli. He is currently on daptomycin and Zosyn. He is requiring pressor support currently on norepinephrine at 25 mcg/m. Vasopressin at 0.03 units per minute. Propofol at 50 mcg/kg/m. Nimbex at 1.5 mcg/kg/m. 0.9 normal saline at 50 MLS per hour. TPN at 108 ML's per hour and lipids for nourishment. CVP of 10. He is status post 8 L of fluid resuscitation. Currently in a +8.6 L balance. On 09/15/2022, the patient is being seen in follow-up in the intensive care unit. The patient is currently intubated on a mechanical ventilator. The patient is sedated with propofol at 75 mcg/kg/m and the patient is also Nimbex at 1 mcg/kg/m. He is adequately sedated and paralyzed at this point in time. He remains on a mechanical ventilator. Is on assist control mode at the rate of 28, tidal volume of 500, FiO2 of 40% with a PEEP of 5. The patient blood gas from this morning shows a pH of 7.39 with a pCO2 of 41 and pO2 of 106 and this was on FiO2 of 40%. The chest x-ray from today shows some atelectatic changes in left lung base. Otherwise the lungs are well expanded. There is no evidence of pneumothorax. ET tube is in a good location at this point in time. The patient also has a orogastric tube in place. The triple-lumen catheter in the left side is also seen in the subclavian vein. Hemodynamically, the patient is on IV fluids and currently is on 0.9 at the rate of 150 mL an hour. The patient is also on pressors. He was on norepinephrine earlier this morning this was weaned off and discontinued. He remains on vasopressin physiologic dose at 0.03 units per minutes. The patient's urine output is in order of 30-40 mL an hour. That fluid balance has been 1.3 L over the past 24 hours. The viscosity 2.8 with hemoglobin of 7.3 and a drop in hemoglobin has been noted. The patient's platelet count is at 398. BUN is at 27 with a creatinine of 1.3 and a sodium level is at 138. Glucose is at 255. Antibiotic coverage is with a combination of daptomycin and Zosyn. TPN is running at the rate of 108 mL an hour. Most recent cultures from the abdominal wall this consistent with E. coli Pseudomonas and enterococcus. The surgical wound site is currently dry clean and intact. The patient is a SARAI drain in the left lower quadrant and another drain in the le ft upper quadrant. Ileostomy is viable and there is minimal amount of liquidy output collecting in the ileostomy bag. This morning, he is afebrile. He did spike a temperature yesterday. 09/16/2022, the patient remains intubated on a mechanical ventilator and the patient is being seen in follow-up in the intensive care unit. This morning, the patient is still having episodes of fever. He remains in sinus tachycardia. Remains intubated on a mechanical ventilator on a combination of propofol and fentanyl. Nimbex was discontinued yesterday. Propofol is running at a dose of 60 mcg/kg/m and fentanyl is running at 1 mcg/kg/h. He seems to be quite comfortable. He was given a brief sedation holiday yesterday and he was able to follow some simple commands. Nevertheless, he is not fully ready for weaning at this point in time. Earlier this morning, he was on assist control of 28, tidal volume of 500, FiO2 of 40% with a PEEP of 5. His peak airway pressure was 38. His minute ventilation was up to 15 L and his blood gas showed a pH of 7.46 with a pCO2 of 38 and pO2 of 116. Chest x-ray showed atelectatic change in lung bases bilaterally. ET tube remains in a good location. The patient also has a right subclavian triple-lumen catheter in place. Based on those, dropped the rate down to 22 and the dropped the tidal volume to 400. His peak air pressures down to 17. His current minute ventilation is around 11.7 L. His breathing is slightly labored on a mechanical ventilator. Is using some chest and abdominal wall muscles to generate volumes. His ileostomy is still not fully functional. His minimal amount of liquidy output collecting in the back. He does have a bowel sounds and essentially a SARAI drains in his left lower quadrant and left upper quadrant and output is serosanguineous and some the order of 200 mL every 24 hours. He is still spiking temperature and the white cell count still elevated at 16. There has been also had a further drop in hemoglobin down to 6.3. White cell count at 16.3. Platelet counts are as for 33. He is recovering from acute kidney injury. Creatinine is down to 1.4 with a BUN of 26 and the sodium levels of 139. He is on TPN for nutritional support which is running at the rate of 42 mL an hour. He is not receiving any form of enteral feeding for nutritional support. Urine output is adequate for now. Overall fluid balance over the past 24 hours has been +3.3 L. No pressors and the patient was taken off the norepinephrine yesterday. He remains on physiologic dose of vasopressin at 0.03 units an hour. Objective - Vital Signs Vital signs: Vital Signs Temp 100.1 F H 09/16/22 00:00 Pulse 120 H 09/16/22 08:35 Resp 28 H 09/16/22 07:00 BP 130/73 09/16/22 06:45 Pulse Ox 97 09/16/22 07:00 FiO2 40 09/16/22 07:42 Intake & Output 09/15/22 09/16/22 09/16/22 18:59 06:59 18:59 Intake Total 3159.751 1965.073 118 Output Total 2812 1480 200 Balance 347.751 485.073 -82 Weight 107.1 kg 110.3 kg Intake: IV 2359 1280 118 ACETAMINOPHEN IV (For NPO 100 ) 1,000 mg In Empty Bag 1 bag @ 400 mls/hr IVPB Q6HR PRN Rx#:[id number] DAPTOmycin 500 mg In 150 Sodium Chloride 0.9% 50 ml @ 100 mls/hr IVPB Q24HR [facility] Rx#:[id number] Mvi, Adult No.4 with Vit 819 430 43 K 10 ml Trace (Conc-1Ml/ Dose) 1 ml Sodium Acetate 60 meq Calcium Gluconate 1.5 gm Magnesium Sulfate gm 1 gm In Amino Acids 5 %/Dextrose 20 % 1,000 ml @ 108 mls/hr IV .BY DURATION [facility] Rx#: [id number] Piperacillin-Tazobactam 3 200 .375 gm In Sodium Chloride 0.9% 100 ml @ 25 mls/hr IVPB Q8HR [facility] Rx# :[id number] Sodium Chloride 0.9% 1, 1190 750 75 000 ml @ 75 mls/hr IV . [id number] [facility] Rx#:[id number] Intake, IV Titration 800.751 685.073 Amount Cisatracurium 200 mg In 132.441 Sodium Chloride 0.9% 180 ml @ 2 MCG/KG/MIN 12.852 mls/hr IV .[id number] [facility] Rx #:[id number] Norepinephrine 8 mg In 83.210 Sodium Chloride 0.9% 250 ml @ 0.03 MCG/KG/MIN 6. 217 mls/hr IV .Q24H [facility] Rx#:[id number] Vasopressin 20 unit In 76.958 51 Sodium Chloride 0.9% 50 ml @ 0.03 UNITS/MIN 4.59 mls/hr IV .[id number] [facility] Rx# :[id number] fentaNYL (PF). 1,000 mcg 4.195 74.791 In Sodium Chloride 0.9% 80 ml @ 0.5 MCG/KG/HR 5. 355 mls/hr IV .[id number] [facility] Rx#:[id number] propofoL 1,000 mg In 587.157 476.072 Empty Bag 1 bag @ 15 MCG/ KG/MIN 9.639 mls/hr IV . [id number] [facility] Rx#:[id number] Output: Gastric Drainage 300 250 Drainage 90 135 Left Lower Abdomen 50 120 Left Upper Abdomen 40 15 Urine 2422 1095 200 Other: Voiding Method Indwelling Catheter Indwelling Catheter # Voids 0 ABP, PAP, CO, CI - Last Documented Arterial Blood Pressure 96/52 - Exam GENERAL EXAM: Intubated, sedated 52-year-old male patient Orogastric and orotracheal tube are both in place. The patient also has a left subclavian triple-lumen catheter. The patient is off paralytics and is only on a combination of sedation with fentanyl and propofol. HEAD: Normocephalic. EYES: Sluggish reaction of pupils, unequal size. NOSE: Oral endotracheal and gastric tube secured in place. Clear with pink turbinates. THROAT: No erythema or exudates. NECK: Left triple-lumen catheter secured in place. No masses, no JVD. CHEST: No chest wall deformity. LUNGS: Equal air entry with bilateral scattered rhonchi. CVS: S1 and S2 normal with no audible murmur, regular rhythm. ABDOMEN: Midline incision with Prevena wound VAC in place, [address]. Ileostomy [address] SPINE: No scoliosis or deformity SKIN: No rashes CENTRAL NERVOUS SYSTEM: Sedated, tone is normal in all 4 extremities. EXTREMITIES: Right radial arterial line secured in place. There is no perip heral edema. No clubbing, no cyanosis. Peripheral pulses are intact. - Labs CBC & Chem 7: 09/16/22 05:19 09/16/22 05:19 Labs: Abnormal Lab Results - Last 24 Hours (Table) 09/13/22 09/15/22 09/15/22 Range/Units 09:03 09:42 11:09 WBC (3.8-10.6) k/uL RBC (4.30-5.90) m/uL Hgb (13.0-17.5) gm/dL Hct (39.0-53.0) % Neutrophils # (1.3-7.7) k/uL Lymphocytes # (1.0-4.8) k/uL ABG pH (7.35-7.45) ABG pO2 (83-108) mmHg ABG HCO3 (21-25) mmol/L ABG Total CO2 (19-24) mmol/L ABG O2 Saturation (94-97) % Chloride (98-107) mmol/L BUN (9-20) mg/dL Glucose (74-99) mg/dL POC Glucose (mg/dL) 220 H (70-110) mg/dL Calcium (8.4-10.2) mg/dL Iron 8 L (65-175) UG/DL TIBC 108 L (228-460) UG/DL % Saturation 7.41 L (15.00-50.00) Transferrin 77.2 L (204.0-354.0) mg/dL Ferritin 351.0 H (22.0-322.0) ng/mL Crossmatch See Detail 09/15/22 09/15/22 09/15/22 Range/Units 11:36 17:43 23:56 WBC (3.8-10.6) k/uL RBC (4.30-5.90) m/uL Hgb (13.0-17.5) gm/dL Hct (39.0-53.0) % Neutrophils # (1.3-7.7) k/uL Lymphocytes # (1.0-4.8) k/uL ABG pH (7.35-7.45) ABG pO2 (83-108) mmHg ABG HCO3 (21-25) mmol/L ABG Total CO2 (19-24) mmol/L ABG O2 Saturation (94-97) % Chloride (98-107) mmol/L BUN (9-20) mg/dL Glucose (74-99) mg/dL POC Glucose (mg/dL) 200 H 140 H 144 H (70-110) mg/dL Calcium (8.4-10.2) mg/dL Iron (65-175) UG/DL TIBC (228-460) UG/DL % Saturation (15.00-50.00) Transferrin (204.0-354.0) mg/dL Ferritin (22.0-322.0) ng/mL Crossmatch 09/16/22 09/16/22 09/16/22 Range/Units 04:35 05:19 05:19 WBC 16.3 H (3.8-10.6) k/uL RBC 2.32 L (4.30-5.90) m/uL Hgb 6.3 L* (13.0-17.5) gm/dL Hct 19.6 L* (39.0-53.0) % Neutrophils # 14.8 H (1.3-7.7) k/uL Lymphocytes # 0.7 L (1.0-4.8) k/uL ABG pH 7.46 H (7.35-7.45) ABG pO2 116 H (83-108) mmHg ABG HCO3 27 H (21-25) mmol/L ABG Total CO2 28 H (19-24) mmol/L ABG O2 Saturation 99.3 H (94-97) % Chloride 109 H (98-107) mmol/L BUN 26 H (9-20) mg/dL Glucose 129 H (74-99) mg/dL POC Glucose (mg/dL) (70-110) mg/dL Calcium 7.5 L (8.4-10.2) mg/dL Iron (65-175) UG/DL TIBC (228-460) UG/DL % Saturation (15.00-50.00) Transferrin (204.0-354.0) mg/dL Ferritin (22.0-322.0) ng/mL Crossmatch 09/16/22 Range/Units 05:46 WBC (3.8-10.6) k/uL RBC (4.30-5.90) m/uL Hgb (13.0-17.5) gm/dL Hct (39.0-53.0) % Neutrophils # (1.3-7.7) k/uL Lymphocytes # (1.0-4.8) k/uL ABG pH (7.35-7.45) ABG pO2 (83-108) mmHg ABG HCO3 (21-25) mmol/L ABG Total CO2 (19-24) mmol/L ABG O2 Saturation (94-97) % Chloride (98-107) mmol/L BUN (9-20) mg/dL Glucose (74-99) mg/dL POC Glucose (mg/dL) 140 H (70-110) mg/dL Calcium (8.4-10.2) mg/dL Iron (65-175) UG/DL TIBC (228-460) UG/DL % Saturation (15.00-50.00) Transferrin (204.0-354.0) mg/dL Ferritin (22.0-322.0) ng/mL Crossmatch Microbiology - Last 24 Hours (Table) 09/11/22 13:00 Anaerobic Culture - Final Other - Other 09/11/22 19:00 Anaerobic Culture - Final Abdomen Assessment and Plan Plan: Acute pneumoperitoneum, secondary to perforated colonic diverticulum and transverse colon. Status post robotic-assisted laparoscopy with extensive lysis of adhesions, right hemicolectomy and primary anastomosis and drainage of abdominal abscess abdominal peritoneal lavage and placement of SARAI drain as well as incisional wound VAC system on 09/04/2022. Follow-up computed tomography scan 09/10/2022 revealed loculated and non-loculated perihepatic collections some of which demonstrate mildly thickened almeida with internal foci of air. Hepatic abscesses are not excluded. Persistent dilatation of the small bowel small bowel wall thickening and inflammatory change in the interval colonic anastomotic site. Persistent postoperative ileus and/or obstructive change is not excluded. Adjacent drains in place. Leak is difficult to exclude. Small amount of free air persistent but improved. He did undergo a CT-guided catheter drainage of the liver abscess on 09/11/2022. Abdominal wound dehiscence with stool and air leak through the incision on 09/14/2022. He was returned to the operating room that same day and had undergone an exploratory laparotomy and extensive lysis of adhesions, resection of ilealcolic anastomosis, drainage of perihepatic loculated abscess with removal of CT-guided drain, small bowel resection for small bowel necrosis/perforation, placement of ileostomy, abdominal washout with 7 L of normal saline, debridement of abdominal wall midline incision, patient of the Moiz-Hanley in the right anterior lateral hepatic space, placement of Moiz- Hanley drain in the right pelvis, quarter-inch Harmon drain in the subcutaneous tissue midline incision and placement of Provena incisional wound VAC system. The ileostomy is not fully functional and the patient is possible also on the patient is receiving TPN for nutritional support Severe abdominal sepsis secondary to E. coli, pseudomonas aeruginosa, enterococcus faecium. Remains on daptomycin and Zosyn. Septic shock secondary to above, currently requiring norepinephrine and vasopressin status post 8 L of fluid resuscitation currently off pressors and the patient remains on vasopressin physiologic dose of 0.03 units an minutes. Acute hypoxemic respiratory failure secondary to above currently requiring mechanical ventilation again following second surgery, remains intubated on a mechanical ventilator. Febrile illness secondary to above, consider possibility of intra-abdominal infection/abscess formation Leukocytosis secondary to above, white cell count remains elevated Sinus tachycardia secondary to sepsis, continues to be sinus tachycardia Acute kidney injury, improving and the renal function is improved since yesterday. Renal function continues to improve and the patient is producing adequate amount of urine output Acute lactic acidosis secondary to sepsis, recovered History of colon cancer status post robotic-assisted laparoscopic extended right hemicolectomy on 08/29/2022 Intra-abdominal abscess Abdominal ascites History of sarcoidosis Plan: Continue ventilator support. Dropped a tidal volume to 400 and dropped the rate down to 22 Keep sedation with propofol and fentanyl The patient will be taken off paralytics completely Transfusing 2 units of packed RBC Continue TPN Continue Zosyn, daptomycin monitor the CVP, levels are low at this point in time at 6 May benefit from a dose of diuretic at the later stage Monitor the output from the ileostomy and the drains General surgery follow-up IVF to KVO Discontinue the vasopressin physiologic dose infusion Completely ready for further weaning. I suspect that the patient still has underlying sepsis as the patient continues to have issues with leukocytosis sinus tachycardia and a higher minute ventilation and he continues to have episodes of fever Prognosis is guarded We will continue to follow Critical care evaluation, more than 30 minutes. Time with Patient: Greater than 30
[2022-09-16] MEDS: ARTIFICIAL TEARS-HYPROMELLOSE DROPS 15 ML BTL BOTH EYES SCH ×4 (10:04→21:32)
[2022-09-16] MEDS: DAPTOmycin 500 MG in SODIUM CHLORIDE 0.9% 50 ML IVPB SCH (10:04)
[2022-09-16] MEDS: fentaNYL (PF). 1,000 MCG in SODIUM CHLORIDE 0.9% 80 ML IV SCH ×2 (10:41→20:58)
[2022-09-16 11:45] LABS: Glucose,Whole Blood 121 mg/dL (70-110)
[2022-09-16] MEDS ORDERED: FUROSEMIDE 10 MG/ML 2 ML VIAL IV ONE (11:55)
--- NOTE | 2022-09-16 11:59 | P.PN ---
Subjective Progress Note Date: 09/16/22 CHIEF COMPLAINT: Pneumoperitoneum, abdominal pain HISTORY OF PRESENT ILLNESS: The patient is a 52-year-old male status post right hemicolectomy for colon cancer 08/29/2022. He was discharged from the hospital without sequelae 08/31/2022 and returned to the hospital 09/03/2022 for pneumoperitoneum. He is status post exploratory laparotomy, lysis of adhesions, evacuation of intra-abdominal abscess, right hemicolectomy for resection of perforated transverse colon diverticulum, 09/04/2022. He then developed acute abdominal pain with suspected bowel perforation. He was taken back to the operating room 09/13/2022 with ileostomy, drainage of perihepatic abscess and extensive lysis of adhesions with small bowel resection. Patient remains in the ICU and on mechanical ventilation. He did have fever of 101 last night and does remain tachycardic. WBC has come down from 18-16. Hemoglobin is down from 7.3- 6.3 and patient is receiving 1 unit of blood. Total iron is low at 18. NG tube output is yellowish in color. SARAI drains are serous in color left lower 120 ml output and left upper 15ml output. No stool output from ileostomy PHYSICAL EXAM: VITAL SIGNS: Reviewed GENERAL: Well-developed in no acute distress. HEENT: No sclera icterus. Extraocular movements grossly intact. Moist buccal mucosa. Head is atraumatic, normocephalic. No nasal drainage. NECK: Supple without lymphadenopathy. CHEST: Non-labored respirations and equal bilateral excursions. CARDIOVASCULAR: Palpable 2+ radial pulses. ABDOMEN: Nondistended. Ileus with serous drainage. SARAI drains left-sided with serous drainage. Incisional wound VAC system with Don drain. MUSCULOSKELETAL: No clubbing or cyanosis. NEUROLOGIC: No focal or lateralizing signs. Cranial nerves II through XII grossly intact. PSYCH: Appropriate affect. Alert and oriented to person, place and time. SKIN: Well perfused. Good skin turgor. ASSESSMENT: 1. Pneumoperitoneum due to perforated diverticulum 2. Tachycardia with fevers consistent with sepsis 3. Acute kidney injury, failure due to severe sepsis 4. Colon cancer status post resection 5. Liver abscess, para hepatic 6. Incisional wound abscess 7. Perforated anastomosis, acute PLAN: -Continue ICU management -Continue supportive care -Continue TPN for nutrition support -Continue antibiotics -Vent management per pulmonary service -DVT prophylaxis subcu heparin Physician Site Director note has been reviewed by physician. Signing provider agrees with the documented findings, assessment, and plan of care. Objective - Vital Signs Vital signs: Vital Signs Temp 100.1 F H 09/16/22 00:00 Pulse 120 H 09/16/22 08:35 Resp 28 H 09/16/22 07:00 BP 130/73 09/16/22 06:45 Pulse Ox 97 09/16/22 07:00 FiO2 40 09/16/22 07:42 Intake & Output 09/15/22 09/16/22 09/16/22 18:59 06:59 18:59 Intake Total 3159.751 1965.073 118 Output Total 2812 1480 200 Balance 347.751 485.073 -82 Weight 107.1 kg 110.3 kg Intake: IV 2359 1280 118 ACETAMINOPHEN IV (For NPO 100 ) 1,000 mg In Empty Bag 1 bag @ 400 mls/hr IVPB Q6HR [facility] Rx#:[id number] DAPTOmycin 500 mg In 150 Sodium Chloride 0.9% 50 ml @ 100 mls/hr IVPB Q24HR [facility] Rx#:[id number] Mvi, Adult No.4 with Vit 819 430 43 K 10 ml Trace (Conc-1Ml/ Dose) 1 ml Sodium Acetate 60 meq Calcium Gluconate 1.5 gm Magnesium Sulfate gm 1 gm In Amino Acids 5 %/Dextrose 20 % 1,000 ml @ 108 mls/hr IV .BY DURATION [facility] Rx#: [id number] Piperacillin-Tazobactam 3 200 .375 gm In Sodium Chloride 0.9% 100 ml @ 25 mls/hr IVPB Q8HR [facility] Rx# :[id number] Sodium Chloride 0.9% 1, 1190 750 75 000 ml @ 75 mls/hr IV . [id number] [facility] Rx#:[id number] Intake, IV Titration 800.751 685.073 Amount Cisatracurium 200 mg In 132.441 Sodium Chloride 0.9% 180 ml @ 2 MCG/KG/MIN 12.852 mls/hr IV .[id number] [facility] Rx #:[id number] Norepinephrine 8 mg In 83.210 Sodium Chloride 0.9% 250 ml @ 0.03 MCG/KG/MIN 6. 217 mls/hr IV .Q24H [facility] Rx#:[id number] Vasopressin 20 unit In 76.958 51 Sodium Chloride 0.9% 50 ml @ 0.03 UNITS/MIN 4.59 mls/hr IV .Q11H7M [facility] Rx# :[id number] fentaNYL (PF). 1,000 mcg 4.195 74.791 In Sodium Chloride 0.9% 80 ml @ 0.5 MCG/KG/HR 5. 355 mls/hr IV .[id number] [facility] Rx#:[id number] propofoL 1,000 mg In 587.157 476.072 Empty Bag 1 bag @ 15 MCG/ KG/MIN 9.639 mls/hr IV . [id number] [facility] Rx#:[id number] Output: Gastric Drainage 300 250 Drainage 90 135 Left Lower Abdomen 50 120 Left Upper Abdomen 40 15 Urine 2422 1095 200 Other: Voiding Method Indwelling Catheter Indwelling Catheter # Voids 0 ABP, PAP, CO, CI - Last Documented Arterial Blood Pressure 96/52 - Labs CBC & Chem 7: 09/16/22 05:19 09/16/22 05:19 Labs: Abnormal Lab Results - Last 24 Hours (Table) 09/13/22 09/15/22 09/15/22 Range/Units 09:03 09:42 11:09 WBC (3.8-10.6) k/uL RBC (4.30-5.90) m/uL Hgb (13.0-17.5) gm/dL Hct (39.0-53.0) % Neutrophils # (1.3-7.7) k/uL Lymphocytes # (1.0-4.8) k/uL ABG pH (7.35-7.45) ABG pO2 (83-108) mmHg ABG HCO3 (21-25) mmol/L ABG Total CO2 (19-24) mmol/L ABG O2 Saturation (94-97) % Chloride (98-107) mmol/L BUN (9-20) mg/dL Glucose (74-99) mg/dL POC Glucose (mg/dL) 220 H (70-110) mg/dL Calcium (8.4-10.2) mg/dL Iron 8 L (65-175) UG/DL TIBC 108 L (228-460) UG/DL % Saturation 7.41 L (15.00-50.00) Transferrin 77.2 L (204.0-354.0) mg/dL Ferritin 351.0 H (22.0-322.0) ng/mL Crossmatch See Detail 09/15/22 09/15/22 09/15/22 Range/Units 11:36 17:43 23:56 WBC (3.8-10.6) k/uL RBC (4.30-5.90) m/uL Hgb (13.0-17.5) gm/dL Hct (39.0-53.0) % Neutrophils # (1.3-7.7) k/uL Lymphocytes # (1.0-4.8) k/uL ABG pH (7.35-7.45) ABG pO2 (83-108) mmHg ABG HCO3 (21-25) mmol/L ABG Total CO2 (19-24) mmol/L ABG O2 Saturation (94-97) % Chloride (98-107) mmol/L BUN (9-20) mg/dL Glucose (74-99) mg/dL POC Glucose (mg/dL) 200 H 140 H 144 H (70-110) mg/dL Calcium (8.4-10.2) mg/dL Iron (65-175) UG/DL TIBC (228-460) UG/DL % Saturation (15.00-50.00) Transferrin (204.0-354.0) mg/dL Ferritin (22.0-322.0) ng/mL Crossmatch 09/16/22 09/16/22 09/16/22 Range/Units 04:35 05:19 05:19 WBC 16.3 H (3.8-10.6) k/uL RBC 2.32 L (4.30-5.90) m/uL Hgb 6.3 L* (13.0-17.5) gm/dL Hct 19.6 L* (39.0-53.0) % Neutrophils # 14.8 H (1.3-7.7) k/uL Lymphocytes # 0.7 L (1.0-4.8) k/uL ABG pH 7.46 H (7.35-7.45) ABG pO2 116 H (83-108) mmHg ABG HCO3 27 H (21-25) mmol/L ABG Total CO2 28 H (19-24) mmol/L ABG O2 Saturation 99.3 H (94-97) % Chloride 109 H (98-107) mmol/L BUN 26 H (9-20) mg/dL Glucose 129 H (74-99) mg/dL POC Glucose (mg/dL) (70-110) mg/dL Calcium 7.5 L (8.4-10.2) mg/dL Iron (65-175) UG/DL TIBC (228-460) UG/DL % Saturation (15.00-50.00) Transferrin (204.0-354.0) mg/dL Ferritin (22.0-322.0) ng/mL Crossmatch 09/16/22 Range/Units 05:46 WBC (3.8-10.6) k/uL RBC (4.30-5.90) m/uL Hgb (13.0-17.5) gm/dL Hct (39.0-53.0) % Neutrophils # (1.3-7.7) k/uL Lymphocytes # (1.0-4.8) k/uL ABG pH (7.35-7.45) ABG pO2 (83-108) mmHg ABG HCO3 (21-25) mmol/L ABG Total CO2 (19-24) mmol/L ABG O2 Saturation (94-97) % Chloride (98-107) mmol/L BUN (9-20) mg/dL Glucose (74-99) mg/dL POC Glucose (mg/dL) 140 H (70-110) mg/dL Calcium (8.4-10.2) mg/dL Iron (65-175) UG/DL TIBC (228-460) UG/DL % Saturation (15.00-50.00) Transferrin (204.0-354.0) mg/dL Ferritin (22.0-322.0) ng/mL Crossmatch Microbiology - Last 24 Hours (Table) 09/11/22 13:00 Anaerobic Culture - Final Other - Other 09/11/22 19:00 Anaerobic Culture - Final Abdomen
--- NOTE | 2022-09-16 12:18 | P.PN ---
Subjective Patient is seen for follow-up for acute kidney injury. Patient is currently on the vent. Patient was taken back to OR on 09/13/2022 and had drainage of perihepatic abscess and small bowel resection for bowel necrosis and perforation, placement of ileostomy, abdominal washout and debridement of abdominal wall midline incision. Patient was hypotensive and maintained on levo fed and vasopressin. Currently off of all pressors Serum creatinine increased to 2.1 but down to 1.1 today and potassium was elevated at 6.6, Improved to 4.6 today Urine output at about 150 mL an hour. Started on TPN and saline was discontinued. Status post packed RBCs transfusion for hemoglobin of 6.3 g/dL today. Objective - Vital Signs Vital signs: Vital Signs Temp 101.2 F H 09/16/22 10:16 Pulse 130 H 09/16/22 11:18 Resp 34 H 09/16/22 11:00 BP 122/49 09/16/22 10:16 Pulse Ox 95 09/16/22 11:00 FiO2 40 09/16/22 10:45 Intake & Output 09/15/22 09/16/22 09/16/22 18:59 06:59 18:59 Intake Total 3159.751 7279.151 0311.769 Output Total 2812 1480 550 Balance 347.751 485.073 470.769 Weight 107.1 kg 110.3 kg Intake: IV 2359 1280 193 ACETAMINOPHEN IV (For NPO 100 ) 1,000 mg In Empty Bag 1 bag @ 400 mls/hr IVPB Q6HR PRN Rx#:[id number] DAPTOmycin 500 mg In 150 Sodium Chloride 0.9% 50 ml @ 100 mls/hr IVPB Q24HR [facility] Rx#:[id number] Mvi, Adult No.4 with Vit 819 430 43 K 10 ml Trace (Conc-1Ml/ Dose) 1 ml Sodium Acetate 60 meq Calcium Gluconate 1.5 gm Magnesium Sulfate gm 1 gm In Amino Acids 5 %/Dextrose 20 % 1,000 ml @ 108 mls/hr IV .BY DURATION [facility] Rx#: [id number] Piperacillin-Tazobactam 3 200 .375 gm In Sodium Chloride 0.9% 100 ml @ 25 mls/hr IVPB Q8HR [facility] Rx# :[id number] Sodium Chloride 0.9% 1, 1190 750 150 000 ml @ 75 mls/hr IV . [id number] [facility] Rx#:[id number] Intake, IV Titration 800.751 685.073 517.769 Amount Cisatracurium 200 mg In 132.441 Sodium Chloride 0.9% 180 ml @ 2 MCG/KG/MIN 12.852 mls/hr IV .[id number] [facility] Rx #:[id number] DAPTOmycin 500 mg In 50 Sodium Chloride 0.9% 50 ml @ 100 mls/hr IVPB Q24HR [facility] Rx#:[id number] Mvi, Adult No.4 with Vit 126 K 10 ml Trace (Conc-1Ml/ Dose) 1 ml Potassium Phosphate 9 mmol Sodium Acetate 60 meq Calcium Gluconate 1.5 gm In Amino Acids 5 %/Dextrose 20 % 1,000 ml @ 43 mls/hr IV . BY DURATION [facility] Rx#: [id number] Norepinephrine 8 mg In 83.210 Sodium Chloride 0.9% 250 ml @ 0.03 MCG/KG/MIN 6. 217 mls/hr IV .Q24H [facility] Rx#:[id number] Piperacillin-Tazobactam 3 100 .375 gm In Sodium Chloride 0.9% 100 ml @ 25 mls/hr IVPB Q8HR [facility] Rx# :[id number] Vasopressin 20 unit In 76.958 51 41.769 Sodium Chloride 0.9% 50 ml @ 0.03 UNITS/MIN 4.59 mls/hr IV .Q11H7M [facility] Rx# :[id number] fentaNYL (PF). 1,000 mcg 4.195 74.791 100 In Sodium Chloride 0.9% 80 ml @ 0.5 MCG/KG/HR 5. 355 mls/hr IV .[id number] [facility] Rx#:[id number] propofoL 1,000 mg In 587.157 476.072 100 Empty Bag 1 bag @ 15 MCG/ KG/MIN 9.639 mls/hr IV . [id number] [facility] Rx#:[id number] Blood Product 310 Rc As-1 Unit 310 [id number] Output: Gastric Drainage 300 250 Drainage 90 135 Left Lower Abdomen 50 120 Left Upper Abdomen 40 15 Urine 2422 1095 550 Other: Voiding Method Indwelling Catheter Indwelling Catheter Indwelling Catheter # Voids 0 ABP, PAP, CO, CI - Last Documented Arterial Blood Pressure 121/51 - Exam Patient is intubated and on the vent Examination of the heart S1 and S2 Examination of the lungs bilateral breath sounds are heard Abdomen shows incision is dressed drains are noted, ileostomy present Examination of the lower extremities shows no edema, 1+ edema noted bilateral upper extremities - Labs CBC & Chem 7: 09/16/22 05:19 09/16/22 05:19 Labs: Abnormal Lab Results - Last 24 Hours (Table) 09/13/22 09/15/22 09/15/22 Range/Units 09:03 09:42 17:43 WBC (3.8-10.6) k/uL RBC (4.30-5.90) m/uL Hgb (13.0-17.5) gm/dL Hct (39.0-53.0) % Neutrophils # (1.3-7.7) k/uL Lymphocytes # (1.0-4.8) k/uL ABG pH (7.35-7.45) ABG pO2 (83-108) mmHg ABG HCO3 (21-25) mmol/L ABG Total CO2 (19-24) mmol/L ABG O2 Saturation (94-97) % Chloride (98-107) mmol/L BUN (9-20) mg/dL Glucose (74-99) mg/dL POC Glucose (mg/dL) 140 H (70-110) mg/dL Calcium (8.4-10.2) mg/dL Iron 8 L (65-175) UG/DL TIBC 108 L (228-460) UG/DL % Saturation 7.41 L (15.00-50.00) Transferrin 77.2 L (204.0-354.0) mg/dL Ferritin 351.0 H (22.0-322.0) ng/mL Crossmatch See Detail 09/15/22 09/16/22 09/16/22 Range/Units 23:56 04:35 05:19 WBC (3.8-10.6) k/uL RBC (4.30-5.90) m/uL Hgb (13.0-17.5) gm/dL Hct (39.0-53.0) % Neutrophils # (1.3-7.7) k/uL Lymphocytes # (1.0-4.8) k/uL ABG pH 7.46 H (7.35-7.45) ABG pO2 116 H (83-108) mmHg ABG HCO3 27 H (21-25) mmol/L ABG Total CO2 28 H (19-24) mmol/L ABG O2 Saturation 99.3 H (94-97) % Chloride 109 H (98-107) mmol/L BUN 26 H (9-20) mg/dL Glucose 129 H (74-99) mg/dL POC Glucose (mg/dL) 144 H (70-110) mg/dL Calcium 7.5 L (8.4-10.2) mg/dL Iron (65-175) UG/DL TIBC (228-460) UG/DL % Saturation (15.00-50.00) Transferrin (204.0-354.0) mg/dL Ferritin (22.0-322.0) ng/mL Crossmatch 09/16/22 09/16/22 09/16/22 Range/Units 05:19 05:46 11:43 WBC 16.3 H (3.8-10.6) k/uL RBC 2.32 L (4.30-5.90) m/uL Hgb 6.3 L* (13.0-17.5) gm/dL Hct 19.6 L* (39.0-53.0) % Neutrophils # 14.8 H (1.3-7.7) k/uL Lymphocytes # 0.7 L (1.0-4.8) k/uL ABG pH (7.35-7.45) ABG pO2 (83-108) mmHg ABG HCO3 (21-25) mmol/L ABG Total CO2 (19-24) mmol/L ABG O2 Saturation (94-97) % Chloride (98-107) mmol/L BUN (9-20) mg/dL Glucose (74-99) mg/dL POC Glucose (mg/dL) 140 H 121 H (70-110) mg/dL Calcium (8.4-10.2) mg/dL Iron (65-175) UG/DL TIBC (228-460) UG/DL % Saturation (15.00-50.00) Transferrin (204.0-354.0) mg/dL Ferritin (22.0-322.0) ng/mL Crossmatch Microbiology - Last 24 Hours (Table) 09/11/22 13:00 Anaerobic Culture - Final Other - Other 09/11/22 19:00 Anaerobic Culture - Final Abdomen Assessment and Plan Assessment: 1. Acute kidney injury, nonoliguric ischemic ATN from hypotension and sepsis. Good urine output. Improved. 2. Intra-abdominal abscess status post explorative laparotomy and further colon resection and drainage of abscess with lysis of adhesions. Patient was taken back to or yesterday on 09/13/2022 and had further bowel resection and drainage of abscess and abdominal washout. 3. Colon cancer status post initial partial colectomy on 08/29/2022 4. Hyperkalemia associated with acute kidney injury and significant hyperglycemia. 5. Sepsis from intra-abdominal abscess Plan: Agree with discontinuation of saline. Patient is also maintained on TPN. IV Lasix 20 mg 1 post packed RBCs as patient is in significant positive balance Repeat labs in a.m.
--- NOTE | 2022-09-16 13:18 | P.PN ---
Subjective Progress Note Date: 09/16/22 Principal diagnosis: colon adenocarcinoma S/p abdominal surgery on 09/13/2022 with ileostomy, drainage of perihepatic abscess and extensive lysis of adhesions with small bowel resection. He continues on IV abx. He is intubated and on sedation. Temperature of 100.1 this morning. WBC 16.3, hemoglobin 6.3, platelets are 433,000. 1 unit PRBCs ordered Objective - Vital Signs Vital signs: Vital Signs Temp 98.4 F 09/16/22 12:00 Pulse 135 H 09/16/22 12:00 Resp 30 H 09/16/22 12:00 BP 122/49 09/16/22 10:16 Pulse Ox 96 09/16/22 12:00 FiO2 40 09/16/22 12:00 Intake & Output 09/15/22 09/16/22 09/16/22 18:59 06:59 18:59 Intake Total 3159.751 9198.270 0548.769 Output Total 2812 1480 1950 Balance 347.751 485.073 -827.231 Weight 107.1 kg 110.3 kg Intake: IV 2359 1280 193 ACETAMINOPHEN IV (For NPO 100 ) 1,000 mg In Empty Bag 1 bag @ 400 mls/hr IVPB Q6HR [facility] Rx#:[id number] DAPTOmycin 500 mg In 150 Sodium Chloride 0.9% 50 ml @ 100 mls/hr IVPB Q24HR [facility] Rx#:[id number] Mvi, Adult No.4 with Vit 819 430 43 K 10 ml Trace (Conc-1Ml/ Dose) 1 ml Sodium Acetate 60 meq Calcium Gluconate 1.5 gm Magnesium Sulfate gm 1 gm In Amino Acids 5 %/Dextrose 20 % 1,000 ml @ 108 mls/hr IV .BY DURATION [facility] Rx#: [id number] Piperacillin-Tazobactam 3 200 .375 gm In Sodium Chloride 0.9% 100 ml @ 25 mls/hr IVPB Q8HR [facility] Rx# :[id number] Sodium Chloride 0.9% 1, 1190 750 150 000 ml @ 75 mls/hr IV . [id number] [facility] Rx#:[id number] Intake, IV Titration 800.751 685.073 619.769 Amount Cisatracurium 200 mg In 132.441 Sodium Chloride 0.9% 180 ml @ 2 MCG/KG/MIN 12.852 mls/hr IV .[id number] [facility] Rx #:[id number] DAPTOmycin 500 mg In 50 Sodium Chloride 0.9% 50 ml @ 100 mls/hr IVPB Q24HR [facility] Rx#:[id number] Mvi, Adult No.4 with Vit 168 K 10 ml Trace (Conc-1Ml/ Dose) 1 ml Potassium Phosphate 9 mmol Sodium Acetate 60 meq Calcium Gluconate 1.5 gm In Amino Acids 5 %/Dextrose 20 % 1,000 ml @ 43 mls/hr IV . BY DURATION [facility] Rx#: [id number] Norepinephrine 8 mg In 83.210 Sodium Chloride 0.9% 250 ml @ 0.03 MCG/KG/MIN 6. 217 mls/hr IV .Q24H [facility] Rx#:[id number] Piperacillin-Tazobactam 3 100 .375 gm In Sodium Chloride 0.9% 100 ml @ 25 mls/hr IVPB Q8HR [facility] Rx# :[id number] Sodium Chloride 0.9% 500 60 ml 500 ml @ 0 mls/hr IV . [facility] Rx#: [id number] Vasopressin 20 unit In 76.958 51 41.769 Sodium Chloride 0.9% 50 ml @ 0.03 UNITS/MIN 4.59 mls/hr IV .Q11H7M [facility] Rx# :[id number] fentaNYL (PF). 1,000 mcg 4.195 74.791 100 In Sodium Chloride 0.9% 80 ml @ 0.5 MCG/KG/HR 5. 355 mls/hr IV .[id number] [facility] Rx#:[id number] propofoL 1,000 mg In 587.157 476.072 100 Empty Bag 1 bag @ 15 MCG/ KG/MIN 9.639 mls/hr IV . [id number] [facility] Rx#:[id number] Blood Product 310 Rc As-1 Unit 310 [id number] Output: Gastric Drainage 300 250 800 Drainage 90 135 Left Lower Abdomen 50 120 Left Upper Abdomen 40 15 Urine 2422 1095 1150 Other: Voiding Method Indwelling Catheter Indwelling Catheter Indwelling Catheter # Voids 0 ABP, PAP, CO, CI - Last Documented Arterial Blood Pressure 126/48 - Constitutional General appearance: Present: average body habitus, no acute distress - EENT Eyes: Present: anicteric sclerae, EOMI ENT: Present: hearing grossly normal - Respiratory Details: ventilated - Cardiovascular Details: tachycardia Rhythm: regular - Gastrointestinal Gastrointestinal Comment(s): ileostomy present - Integumentary Integumentary: Absent: cyanotic - Neurologic Neurologic Comment(s): sedated, unresponsive - Labs CBC & Chem 7: 09/16/22 05:19 09/16/22 05:19 Labs: Abnormal Lab Results - Last 24 Hours (Table) 09/13/22 09/15/22 09/15/22 Range/Units 09:03 09:42 17:43 WBC (3.8-10.6) k/uL RBC (4.30-5.90) m/uL Hgb (13.0-17.5) gm/dL Hct (39.0-53.0) % Neutrophils # (1.3-7.7) k/uL Lymphocytes # (1.0-4.8) k/uL ABG pH (7.35-7.45) ABG pO2 (83-108) mmHg ABG HCO3 (21-25) mmol/L ABG Total CO2 (19-24) mmol/L ABG O2 Saturation (94-97) % Chloride (98-107) mmol/L BUN (9-20) mg/dL Glucose (74-99) mg/dL POC Glucose (mg/dL) 140 H (70-110) mg/dL Calcium (8.4-10.2) mg/dL Iron 8 L (65-175) UG/DL TIBC 108 L (228-460) UG/DL % Saturation 7.41 L (15.00-50.00) Transferrin 77.2 L (204.0-354.0) mg/dL Ferritin 351.0 H (22.0-322.0) ng/mL Crossmatch See Detail 09/15/22 09/16/22 09/16/22 Range/Units 23:56 04:35 05:19 WBC (3.8-10.6) k/uL RBC (4.30-5.90) m/uL Hgb (13.0-17.5) gm/dL Hct (39.0-53.0) % Neutrophils # (1.3-7.7) k/uL Lymphocytes # (1.0-4.8) k/uL ABG pH 7.46 H (7.35-7.45) ABG pO2 116 H (83-108) mmHg ABG HCO3 27 H (21-25) mmol/L ABG Total CO2 28 H (19-24) mmol/L ABG O2 Saturation 99.3 H (94-97) % Chloride 109 H (98-107) mmol/L BUN 26 H (9-20) mg/dL Glucose 129 H (74-99) mg/dL POC Glucose (mg/dL) 144 H (70-110) mg/dL Calcium 7.5 L (8.4-10.2) mg/dL Iron (65-175) UG/DL TIBC (228-460) UG/DL % Saturation (15.00-50.00) Transferrin (204.0-354.0) mg/dL Ferritin (22.0-322.0) ng/mL Crossmatch 09/16/22 09/16/22 09/16/22 Range/Units 05:19 05:46 11:43 WBC 16.3 H (3.8-10.6) k/uL RBC 2.32 L (4.30-5.90) m/uL Hgb 6.3 L* (13.0-17.5) gm/dL Hct 19.6 L* (39.0-53.0) % Neutrophils # 14.8 H (1.3-7.7) k/uL Lymphocytes # 0.7 L (1.0-4.8) k/uL ABG pH (7.35-7.45) ABG pO2 (83-108) mmHg ABG HCO3 (21-25) mmol/L ABG Total CO2 (19-24) mmol/L ABG O2 Saturation (94-97) % Chloride (98-107) mmol/L BUN (9-20) mg/dL Glucose (74-99) mg/dL POC Glucose (mg/dL) 140 H 121 H (70-110) mg/dL Calcium (8.4-10.2) mg/dL Iron (65-175) UG/DL TIBC (228-460) UG/DL % Saturation (15.00-50.00) Transferrin (204.0-354.0) mg/dL Ferritin (22.0-322.0) ng/mL Crossmatch - Last 24 Hours (Table) 09/11/22 13:00 Anaerobic Culture - Final Other - Other 09/11/22 19:00 Anaerobic Culture - Final Abdomen Assessment and Plan (1) Colon adenocarcinoma Current Visit: Yes Status: Acute Priority: High Code(s): C18.9 - MALIGNANT NEOPLASM OF COLON, UNSPECIFIED SNOMED Code(s): 715843210 Plan: Colon adenocarcinoma -S/p hemicolectomy on 08/29. Had to go back to surgery on 09/13/2022 due to concern for perforated bowel, had ileostomy, drainage of perihepatic abscess and extensive lysis of adhesions with small bowel resection. Transferred to ICU. He is intubated. Continues on IV abx. Surgery and ID following -Hemoglobin 6.3 today, 1 unt PRBCs ordered -Dr. Finn reviewed the pathology results with the patient. Based on mucinous features of the tumor, 6 lymph nodes sampled and tumor eroding through the colon adhered to the small bowel the recommendation is for adjuvant treatment. Patient is a very high risk for malignant cells to have detached from the primary tumor. Patient verbalized understanding the reasoning behind adjuvant treatment. -Treatment will not begin for at least 4 weeks postop. Patient will be reassessed in the office in about 3-4 weeks to reevaluate prior to starting t reatment.
[2022-09-16] MEDS: SODIUM FERRIC GLUCONAT-SUCROSE 125 MG in SODIUM CHLORIDE 0.9% 100 ML IVPB SCH (14:17)
[2022-09-16] MEDS ORDERED: ANIDULAFUNGIN 200 MG in SODIUM CHLORIDE 0.9% 200 ML IVPB ONE (14:30)
[2022-09-16] MEDS: 1: MVI, ADULT NO.4 WITH VIT K 10 ML, TRACE (CONC-1ML/DOSE) 1 ML, POTASSIUM PHOSPHATE 9 M IV SCH ×18 (16:19→16:36)
[2022-09-16 18:05] LABS: Glucose,Whole Blood 128 mg/dL (70-110)
--- NOTE | 2022-09-16 18:28 | P.PN ---
Subjective Progress Note Date: 09/16/22 This is a 52 year old male monitored in the intensive care unit postoperative day #4 lysis of adhesions and right hemicolectomy due to bowel perforation. Patient had end to end anastamosis. Has not had bowel movement, had KUB xray today showing multiple dilated small bowel loops possible ileus vs. obstruction. General surgery recommending patient to be NPO at this time. Heart rate remains elevated in the 120s and patient switched to IV lopressor. Remains on IV daptomycin and IV zosyn for positive peritoneal fluid culture with E. Coli, enterococcus and pseudomonas. Blood culture negative so far. Patient remains on D5 water at 100 mls/hr, sodium is slightly improved today down to 146. Continues on TPN, NG tube has been discontinued. Accuchecks switched to Q6h and small dose of levemir HS has been added. SARAI drain in place with serous drainage. Patient febrile today up to 101.9, encouraged to continue with incentive spirometer. Patient has wound vac in place to continuous suction, plan to ambulate around the room and up in the chair today. 09/09/2022 Patient is evaluated today in the ICU resting in bed. Alert x 3. Asking about discharge. Repeat blood culture is pending patient remains on IV antibiotics. White count up to 19.7 today. Patient reports BM yesterday and passing some gas today. Abdomen is more distended. Surgery recommending NG tube today. Patient remains NPO. Midline incisional wound vac in place. Patient remains with fever, using incentive spirometer reaching 1200. Continues on TPN. 09/10/2022 Patient remains in the intensive care unit. Patient continues to be NPO. 3 attempts were made to pass NG tube and were unsuccessful. Patient did have 2 BMs yesterday, abdomen remains significantly distended. Repeat abdominal pelvis CT reveals loculated and nonloculated perihepatic collections some of which demonstrate mildly thickened almeida with internal foci of air. Perihepatic abscesses are not excluded. Persistent dilation of small bowel with small bowel wall thickening and inflammatory change at the enterocolonic anastomotic site. Persistent postoperative ileus and/or obstructive changes not excluded. Adjacent drain is in place. Contrast does not opacify the anastomotic site and therefore leak is difficult to evaluate or exclude. Small amt of free air persists improved from prior study. White count 18.3 today, electrolytes are normalized and blood glucose improved to 115. Patient remains on TPN. Blood culture remains negative. Remains on IV zosyn and IV daptomycin. Temp of 100.4 and remains tachycardic 121, blood pressure stable at 131/94. 09/11/2022 Patient is evaluated today in the intensive care unit. Remains tachycardic and T-Max of 100.7 overnight. Scheduled to undergo drainage and placement of drainage tube to the perihepatic abscess noted on CT imaging with IR today. White count down to 16.0 today. Continues on IV daptoymcin and IV vancomycin. Per nursing did have a small BM overnight. 09/12/2022 Patient evaluated today in the intensive care unit. Underwent CT guided abscess drainage with 100 mls of purulent drainage and also had midline fransisca removed at the top of incision with some purulent drainage. Patients white count is down to 12.8 today. Kidney function stable, sodium 135 today. Patient has been cleared to start diet, having small BMs. Metoprolol will be changed to oral. Fever is improving. Cultures are pending from the abscess and ID is following closely. 09/13/2022 Patient continues to be monitored closely in the intensive care unit. Patient continues with significant tachycardia not improving with metoprolol and continues with abdominal distention. Cardiology was placed on consultation for the tachycardia and patient has been transitioned back to IV lopressor. Wound cultures from the CT guided are showing gram negative bacilli. This morning per nursing the abdomen was more distended and patient had felt a popping sensation with evidence of leaking of brown colored drainage from the surgical incision and the drainage bag. The surgical incision was opened yesterday at the bedside by surgery. Patient was taken for emergent exploratory laporotomy. White count is 17.9 today, sodium 134, potassium 5.0. Kidney function remains stable. Patient has been continued to be NPO no NG tube present. Labs and vitals reviewed. 09/14/2022 Patient is evaluated today he is currently in the intensive care unit intubated and sedated he is on combination of nimbex and propofol. Patient is currently on the mechanical ventilator with 40% FiO2. Patient is also requiring levophed and vasopression. Patient continues on IV daptomycin and IV zosyn. The wound culture shows E.Coli. Patient underwent extensive exploratory laporotomy yesterday with lysis of adhesions, resection of the ileocolic anastamosis due to anastomotic leak, small bowel resection for small bowel necrosis/peforation with placement of ileostomy. Patient had nataliia-stone drain x 2 placed and alpa drain placed. Abdomen was closed with a wound vac. Temp is T-max 100.4 today. Labs reveal white count of 20.1, hgb 9.3, sodium 131, potassium at 6.6 and 5.9, BUN 32, creatinine 2.15, blood glucose 394, calcium 6.4, magnesium 1.4. Patient rece ived IV magnesium, IV gluconate, and IV insulin humulin N. 09/15/2022 Patient is seen in a follow-up continues to be in the ICU with multiple medical consultations following. Patient continues on mechanical ventilation with an FiO2 of 40% and PEEP is 5. Patient is maintained on IV antibiotics in the form of dapto and Zosyn with Infectious Disease Following Closely and Culture Showing E. coli with Multiple Sensitivities. Patient Continues to Have Fevers and White Count Elevated Slightly Trending down to 18 Today. Recent Ileostomy Placed with No Function at This Time and Patient Is Maintained on TPN. Patient Continues with Drains along with a Wound VAC of the Abdomen. Hemoglobin Trending down and upon Stopping Currently Would Recommend Monitoring Closely and Transfuse of 7 or Less. Nephrology Following As Well This Patient's Kidney Functions Worsened Although Appear Better Today. Patient Remains Tachycardic on the Monitor and Troponins Have Been Negative. Recommend Continuing with Accu-Cheks per Protocol and Tight Glycemic Control. 09/16/2022 Patient is seen and evaluated in follow-up today and continues to remain on mechanical ventilation maintained on fentanyl and propofol under sedation. FiO2 is 40% with a PEEP of 5. Hemoglobin critically low at 6.3 and receiving a unit of PRBCs. Would recommend a dose of Lasix after unit of blood. Patient's overall swelling showing some improvement on chest x-ray continues to so show some stable pleural effusions. No bowel activity per nursing staff noted as of yet in the ostomy. Kidney functions are trending down. Patient is continuing to have temps and would recommend repeat blood cultures, sputum culture, urine culture. Review of systems: Unable to complete is patient is currently intubated and sedated in the ICU Active Medications Albuterol/Ipratropium (Ipratropium-Albuterol 3 Ml Neb) 3 ml INHALATION RT-Q4H [facility] Last Admin: 09/16/22 11:18 Dose: 3 ml Artificial Tears (Artificial Tears-Hypromellose Drops 15 Ml Btl) 2 drops BOTH EYES QID [facility] Last Admin: 09/16/22 11:32 Dose: 2 drops Chlorhexidine Gluconate (Chlorhexidine Gluconate 15 Ml Cup) 15 ml MUCOUS MEM BID [facility] Last Admin: 09/16/22 08:32 Dose: 15 ml Heparin Sodium (Porcine) (Heparin Sodium,Porcine/Pf 5,000 Unit/0.5 Ml Syringe) 5,000 unit SQ Q12HR [facility] Last Admin: 09/16/22 08:33 Dose: 5,000 unit Piperacillin Sod/Tazobactam (Sod 3.375 gm/ Sodium Chloride) 100 mls @ 25 mls/hr IVPB Q8HR [facility]; Protocol Last Admin: 09/16/22 08:33 Dose: 25 mls/hr Daptomycin 500 mg/ Sodium (Chloride) 50 mls @ 100 mls/hr IVPB Q24HR [facility]; Protocol Last Admin: 09/16/22 10:04 Dose: 100 mls/hr Fat Emulsion Intravenous 250 (ml/ IV Solution) 250 mls @ 21 mls/hr IV [id number]@1800 [facility] Last Admin: 09/13/22 22:42 Dose: 21 mls/hr Propofol 1,000 mg/ IV Solution 100 mls @ 9.639 mls/hr IV .[id number] [facility]; Protocol Last Admin: 09/16/22 10:45 Dose: 60 mcg/kg/min, 38.556 mls/hr Norepinephrine Bitartrate 8 mg (/ Sodium Chloride) 258 mls @ 6.217 mls/hr IV .Q24H [facility]; Protocol Last Titration: 09/16/22 01:53 Dose: 0 mcg/kg/min, 0 mls/hr Vasopressin 20 unit/ Sodium (Chloride) 51 mls @ 4.59 mls/hr IV .[id number] [facility]; Pr otocol Last Titration: 09/16/22 10:07 Dose: 0 units/min, 0 mls/hr Fentanyl Citrate 1,000 mcg/ (Sodium Chloride) 100 mls @ 5.355 mls/hr IV .[id number] [facility]; Protocol Last Titration: 09/16/22 13:00 Dose: 1.5 mcg/kg/hr, 16.065 mls/hr Parenteral Vitamin Supplement 10 ml/ Zinc/Copper/Manganese/Selenium 1 ml/ Potassium Phosphate 9 mmol/ Sodium Acetate 60 meq/ Calcium Gluconate 1.5 gm/ Amino Acids/Dextrose 1,059 mls @ 43 mls/hr IV .BY DURATION [facility] Last Admin: 09/15/22 17:01 Dose: 43 mls/hr Potassium Phosphate 9 mmol/Sodium Acetate 60 meq/ Calcium Gluconate 1.5 gm/ Amino Acids /Dextrose 1,048 mls @ 43 mls/hr IV .BY DURATION [facility] Acetaminophen 1,000 mg/ IV (Solution) 100 mls @ 400 mls/hr IVPB Q6HR PRN PRN Reason: Fever>101 Stop: 09/16/22 19:44 Last Admin: 09/16/22 03:14 Dose: 400 mls/hr Ferric Sodium Gluconate 125 mg (/ Sodium Chloride) 110 mls @ 100 mls/hr IVPB DAILY [facility] Stop: 09/18/22 10:05 Insulin Aspart (Insulin Aspart (Novolog) 100 Unit/Ml Vial) 3 unit SQ Q6HR [facility] Last Admin: 09/16/22 12:03 Dose: Not Given Insulin Detemir (Insulin Detemir (Levemir) 100 Unit/Ml Syr) 10 unit SQ BID@0700,2100 [facility] Last Admin: 09/16/22 05:50 Dose: 10 unit Metoclopramide HCl (Metoclopramide 5 Mg/Ml 2 Ml Vial) 10 mg IVP Q6H [facility] Last Admin: 09/16/22 11:32 Dose: 10 mg Miscellaneous Information (Potassium Replacement Protocol 1 Each [facility] [place]) 1 each MISCELLANE DAILY PRN PRN Reason: Per Protocol Miscellaneous Information (Phosphorus Replacement Protoco 1 Each Misc) 1 each MISCELLANE DAILY PRN; Protocol PRN Reason: Per Protocol Miscellaneous Information (Magnesium Replacement Protocol 1 Each [facility] [place]) 1 each MISCELLANE DAILY PRN; Protocol PRN Reason: Per Protocol Naloxone HCl (Naloxone 0.4 Mg/Ml 1 Ml Vial) 0.2 mg IV Q2M PRN PRN Reason: Opioid Reversal Ondansetron HCl (Ondansetron 4 Mg/2 Ml Vial) 4 mg IVP Q8HR PRN PRN Reason: Nausea And Vomiting Last Admin: 09/09/22 17:04 Dose: 4 mg Pantoprazole Sodium (Pantoprazole 40 Mg/10 Ml Vial) 40 mg IV DAILY [facility] Last Admin: 09/16/22 08:32 Dose: 40 mg PHYSICAL EXAMINATION: GENERAL: This is a 52-year-old male who is Currently intubated and sedated, Well developed, well nourished. Obese HEENT: Pupils are round and equally reacting to light. EOMI. No scleral icterus. No conjunctival pallor. Normocephalic, atraumatic. No pharyngeal erythema. No thyromegaly. CARDIOVASCULAR: S1 and S2 muffled. Tachycardic. PULMONARY: Diminished breath sounds bilaterally with some coarse rhonchi noted ABDOMEN: Soft, Postsurgical drain x 3 present midline wound vac. ileostomy. distended, No bowel sounds. No palpable organomegaly. MUSCULOSKELETAL: No joint swelling or deformity. EXTREMITIES: No cyanosis, clubbing, generalized edema noted of bilateral upper and lower extremities NEUROLOGICAL: Unable to complete physical exam patient is currently intubated and sedated. SKIN: No rashes. Assessment: Sepsis septic shock secondary to perforated diverticulum postoperative day #10 evacuation of abscess, lysis of adhesions, right hemicolectomy. Postoperative day #4 lysis of adhesions, resection of ileocolic anastamosis due to anastomotic leak, small bowel resection for small bowel necrosis/perforation and placement of ileostomy. Status post CT guided drainage of abscess on 09/11/22 cultures showing E.Coli. Postoperative ileus Fever and persistent sinus tachycardia due to septic shock patient is now on vasopressin Colon cancer s/p resection on 08/29/2022 Acute kidney injury secondary to ATN and sepsis Hyperkalemia Hyperglycemia Leukocytosis Hypernatremia resolved Hx hyperlipidemia Sarcoidosis with asthma Nicotine use GI prophylaxis DVT prophylaxis Full Code Plan: Continue IV antibiotics, infectious disease following closely. Patient culture showing E. coli with multiple sensitivities and maintained on Daptomycin along with Zosyn Patient continues to be febrile and blood cultures have been repeated and pending negative so far Transfuse 1-2 units of PRBCs as hemoglobin is 6.3 today. Would recommend a dose of Lasix postinfusion Continue CBG Q6h hour and novolog s/s q6h. scheduled insulin added and levemir is increased, patient may require insulin gtt. patient is continued on TPN Cardiology following and patient remains tachycardic. Troponins are negative, component of sepsis with septic shock and continues to be febrile Follow up AM labs. Due to multiple complex medical issues, prognosis is extremely guarded We will continue to follow with surgery during hospitalization. Thank you kin maxim for this consultation The impression and plan of care has been dictated by Laurie Sesay, Nurse Practitioner as directed. Dr. Jeb MD I have performed a history and examination and MDM of this patient, discussed the same with the dictator, and agree with the dictator's assessment and plan as written ,documented as a scribe. Based on total visit time, I have performed more than 50% of the visit. Objective - Vital Signs Vital signs: Vital Signs Temp 98.4 F 09/16/22 12:00 Pulse 135 H 09/16/22 13:00 Resp 29 H 09/16/22 13:00 BP 122/49 09/16/22 10:16 Pulse Ox 95 09/16/22 13:00 FiO2 40 09/16/22 13:45 Intake & Output 09/15/22 09/16/22 09/16/22 18:59 06:59 18:59 Intake Total 3159.751 0561.057 2661.581 Output Total 2812 1480 3850 Balance 347.751 485.073 -2498.419 Weight 107.1 kg 110.3 kg Intake: IV 2359 1280 313 ACETAMINOPHEN IV (For NPO 100 ) 1,000 mg In Empty Bag 1 bag @ 400 mls/hr IVPB Q6HR PRN Rx#:[id number] DAPTOmycin 500 mg In 150 Sodium Chloride 0.9% 50 ml @ 100 mls/hr IVPB Q24HR [facility] Rx#:[id number] Mvi, Adult No.4 with Vit 819 430 43 K 10 ml Trace (Conc-1Ml/ Dose) 1 ml Sodium Acetate 60 meq Calcium Gluconate 1.5 gm Magnesium Sulfate gm 1 gm In Amino Acids 5 %/Dextrose 20 % 1,000 ml @ 108 mls/hr IV .BY DURATION [facility] Rx#: [id number] Piperacillin-Tazobactam 3 200 .375 gm In Sodium Chloride 0.9% 100 ml @ 25 mls/hr IVPB Q8HR [facility] Rx# :[id number] Sodium Chloride 0.9% 1, 1190 750 270 000 ml @ 75 mls/hr IV . [id number] [facility] Rx#:[id number] Intake, IV Titration 800.751 685.073 728.581 Amount Cisatracurium 200 mg In 132.441 Sodium Chloride 0.9% 180 ml @ 2 MCG/KG/MIN 12.852 mls/hr IV .[id number] [facility] Rx #:[id number] DAPTOmycin 500 mg In 50 Sodium Chloride 0.9% 50 ml @ 100 mls/hr IVPB Q24HR [facility] Rx#:[id number] Mvi, Adult No.4 with Vit 252 K 10 ml Trace (Conc-1Ml/ Dose) 1 ml Potassium Phosphate 9 mmol Sodium Acetate 60 meq Calcium Gluconate 1.5 gm In Amino Acids 5 %/Dextrose 20 % 1,000 ml @ 43 mls/hr IV . BY DURATION [facility] Rx#: [id number] Norepinephrine 8 mg In 83.210 Sodium Chloride 0.9% 250 ml @ 0.03 MCG/KG/MIN 6. 217 mls/hr IV .Q24H [facility] Rx#:[id number] Piperacillin-Tazobactam 3 100 .375 gm In Sodium Chloride 0.9% 100 ml @ 25 mls/hr IVPB Q8HR [facility] Rx# :[id number] Sodium Chloride 0.9% 500 60 ml 500 ml @ 0 mls/hr IV . [facility] Rx#: [id number] Vasopressin 20 unit In 76.958 51 41.769 Sodium Chloride 0.9% 50 ml @ 0.03 UNITS/MIN 4.59 mls/hr IV .[id number] [facility] Rx# :[id number] fentaNYL (PF). 1,000 mcg 4.195 74.791 124.812 In Sodium Chloride 0.9% 80 ml @ 0.5 MCG/KG/HR 5. 355 mls/hr IV .[id number] [facility] Rx#:[id number] propofoL 1,000 mg In 587.157 476.072 100 Empty Bag 1 bag @ 15 MCG/ KG/MIN 9.639 mls/hr IV . [id number] [facility] Rx#:[id number] Blood Product 310 Rc As-1 Unit 310 [id number] Output: Gastric Drainage 300 250 800 Drainage 90 135 Left Lower Abdomen 50 120 Left Upper Abdomen 40 15 Urine 2422 1095 3050 Other: Voiding Method Indwelling Catheter Indwelling Catheter Indwelling Catheter # Voids 0 ABP, PAP, CO, CI - Last Documented Arterial Blood Pressure 117/54 - Labs CBC & Chem 7: 09/16/22 05:19 09/16/22 05:19 Labs: Abnormal Lab Results - Last 24 Hours (Table) 09/13/22 09/15/22 09/15/22 Range/Units 09:03 09:42 17:43 WBC (3.8-10.6) k/uL RBC (4.30-5.90) m/uL Hgb (13.0-17.5) gm/dL Hct (39.0-53.0) % Neutrophils # (1.3-7.7) k/uL Lymphocytes # (1.0-4.8) k/uL ABG pH (7.35-7.45) ABG pO2 (83-108) mmHg ABG HCO3 (21-25) mmol/L ABG Total CO2 (19-24) mmol/L ABG O2 Saturation (94-97) % Chloride (98-107) mmol/L BUN (9-20) mg/dL Glucose (74-99) mg/dL POC Glucose (mg/dL) 140 H (70-110) mg/dL Calcium (8.4-10.2) mg/dL Iron 8 L (65-175) UG/DL TIBC 108 L (228-460) UG/DL % Saturation 7.41 L (15.00-50.00) Transferrin 77.2 L (204.0-354.0) mg/dL Ferritin 351.0 H (22.0-322.0) ng/mL Crossmatch See Detail 09/15/22 09/16/22 09/16/22 Range/Units 23:56 04:35 05:19 WBC (3.8-10.6) k/uL RBC (4.30-5.90) m/uL Hgb (13.0-17.5) gm/dL Hct (39.0-53.0) % Neutrophils # (1.3-7.7) k/uL Lymphocytes # (1.0-4.8) k/uL ABG pH 7.46 H (7.35-7.45) ABG pO2 116 H (83-108) mmHg ABG HCO3 27 H (21-25) mmol/L ABG Total CO2 28 H (19-24) mmol/L ABG O2 Saturation 99.3 H (94-97) % Chloride 109 H (98-107) mmol/L BUN 26 H (9-20) mg/dL Glucose 129 H (74-99) mg/dL POC Glucose (mg/dL) 144 H (70-110) mg/dL Calcium 7.5 L (8.4-10.2) mg/dL Iron (65-175) UG/DL TIBC (228-460) UG/DL % Saturation (15.00-50.00) Transferrin (204.0-354.0) mg/dL Ferritin (22.0-322.0) ng/mL Crossmatch 09/16/22 09/16/22 09/16/22 Range/Units 05:19 05:46 11:43 WBC 16.3 H (3.8-10.6) k/uL RBC 2.32 L (4.30-5.90) m/uL Hgb 6.3 L* (13.0-17.5) gm/dL Hct 19.6 L* (39.0-53.0) % Neutrophils # 14.8 H (1.3-7.7) k/uL Lymphocytes # 0.7 L (1.0-4.8) k/uL ABG pH (7.35-7.45) ABG pO2 (83-108) mmHg ABG HCO3 (21-25) mmol/L ABG Total CO2 (19-24) mmol/L ABG O2 Saturation (94-97) % Chloride (98-107) mmol/L BUN (9-20) mg/dL Glucose (74-99) mg/dL POC Glucose (mg/dL) 140 H 121 H (70-110) mg/dL Calcium (8.4-10.2) mg/dL Iron (65-175) UG/DL TIBC (228-460) UG/DL % Saturation (15.00-50.00) Transferrin (204.0-354.0) mg/dL Ferritin (22.0-322.0) ng/mL Crossmatch Microbiology - Last 24 Hours (Table) 09/11/22 13:00 Anaerobic Culture - Final Other - Other 09/11/22 19:00 Anaerobic Culture - Final Abdomen
[2022-09-16 21:30] LABS: Glucose,Whole Blood 135 mg/dL (70-110)
--- NOTE | 2022-09-16 21:47 | P.PN ---
Subjective Progress Note Date: 09/15/22 Principal diagnosis: Intra-abdominal abscess Patient is a 52-year-old male presenting to the hospital with abdominal pain has been diagnosed with an intra-abdominal abscess from perforated diverticulum status post laparotomy and drainage of the abscess. Patient is status post IR drainage of perihepatic abscess completed on 09/11/2022, Patient was taken back to the OR on 09/13/2022 for small bowel necrosis and perforation, the patient is status post exploration laparotomy and lysis of addition resection of the ileocolonic anastomosis and drainage of the perihepatic local area abscess small bowel resection and creation of ileostomy on today's evaluation that is 09/15/2022, the patient is afebrile today, the patient is requiring less pressor support per the nursing staff the patient is on the vent and FiO2 50% he did have NG for suction no output in ileostomy Objective - Vital Signs Vital signs: Vital Signs Temp 98.7 F 09/15/22 08:00 Pulse 111 H 09/15/22 11:36 Resp 28 H 09/15/22 11:36 BP 130/73 09/15/22 08:45 Pulse Ox 100 09/15/22 08:45 FiO2 40 09/15/22 11:19 Intake & Output 09/14/22 09/15/22 09/15/22 18:59 06:59 18:59 Intake Total 5606.315 4562.906 1844.242 Output Total 3690 3175 1310 Balance 1623.188 6144.906 534.242 Weight 107.1 kg Intake: IV 3343 2838 1463 ACETAMINOPHEN IV (For NPO 50 ) 1,000 mg In Empty Bag 1 bag @ 400 mls/hr IVPB Q6HR [facility] Rx#:[id number] DAPTOmycin 500 mg In 100 150 Sodium Chloride 0.9% 50 ml @ 100 mls/hr IVPB Q24HR [facility] Rx#:[id number] Fat Emulsion 20% 250 ml 21 In Empty Bag 1 bag @ 21 mls/hr IV [id number] [facility] Rx#:[id number] Magnesium Sulfate-D5w Pmx 200 1 gm In Dextrose/Water 1 100ml.bag @ 100 mls/hr IVPB ONCE ONE Rx#: [id number] Mvi, Adult No.4 with Vit 324 518 K 10 ml Trace (Conc-1Ml/ Dose) 1 ml Sodium Acetate 60 meq Calcium Gluconate 1.5 gm Magnesium Sulfate gm 1 gm In Amino Acids 5 %/Dextrose 20 % 1,000 ml @ 108 mls/hr IV .BY DURATION [facility] Rx#: [id number] Piperacillin-Tazobactam 3 200 100 .375 gm In Sodium Chloride 0.9% 100 ml @ 25 mls/hr IVPB Q8HR [facility] Rx# :[id number] Sodium Acetate 60 meq 972 864 Calcium Gluconate 1.5 gm Magnesium Sulfate gm 1 gm In Amino Acids 5 %/ Dextrose 20 % 1,000 ml @ 108 mls/hr IV .BY DURATION [facility] Rx#: [id number] Sodium Chloride 0.9% 1, 1800 1650 695 000 ml @ 75 mls/hr IV . [id number] [facility] Rx#:[id number] Intake, IV Titration 9353.159 7648.906 381.242 Amount Cisatracurium 200 mg In 80.325 132.206 Sodium Chloride 0.9% 180 ml @ 2 MCG/KG/MIN 12.852 mls/hr IV .[id number] [facility] Rx #:[id number] Norepinephrine 8 mg In 483.878 241.468 Sodium Chloride 0.9% 250 ml @ 0.03 MCG/KG/MIN 6. 217 mls/hr IV .Q24H [facility] Rx#:[id number] Sodium Acetate 60 meq 1047 1047 Calcium Gluconate 1.5 gm Magnesium Sulfate gm 1 gm In Amino Acids 5 %/ Dextrose 20 % 1,000 ml @ 108 mls/hr IV .BY DURATION [facility] Rx#: [id number] Vasopressin 20 unit In 51 47.277 49.036 Sodium Chloride 0.9% 50 ml @ 0.03 UNITS/MIN 4.59 mls/hr IV .Q11H7M [facility] Rx# :[id number] propofoL 1,000 mg In 277.112 389.161 200 Empty Bag 1 bag @ 15 MCG/ KG/MIN 9.639 mls/hr IV . [id number] [facility] Rx#:[id number] TPN/PPN 324 Sodium Acetate 60 meq 324 Calcium Gluconate 1.5 gm Magnesium Sulfate gm 1 gm In Amino Acids 5 %/ Dextrose 20 % 1,000 ml @ 108 mls/hr IV .BY DURATION [facility] Rx#: [id number] Output: Gastric Drainage 300 Drainage 150 115 20 Left Lower Abdomen 70 85 10 Left Upper Abdomen 80 30 10 Urine 3540 2650 1290 Other 110 Other: Voiding Method Indwelling Catheter Indwelling Catheter ABP, PAP, CO, CI - Last Documented Arterial Blood Pressure 101/47 - Exam GENERAL DESCRIPTION: A middle-age male intubated on the vent RESPIRATORY SYSTEM: Unlabored breathing , decreased breath sounds at bases HEART: S1 S2 regular rate and rhythm , ABDOMEN: Soft , midline incision is intact no output in ileostomy EXTREMITIES: No edema feet - Labs CBC & Chem 7: 09/16/22 05:19 09/16/22 05:19 Labs: Abnormal Lab Results - Last 24 Hours (Table) 09/14/22 09/14/22 09/14/22 Range/Units 12:33 14:45 17:07 WBC (3.8-10.6) k/uL RBC (4.30-5.90) m/uL Hgb (13.0-17.5) gm/dL Hct (39.0-53.0) % Neutrophils # (1.3-7.7) k/uL Lymphocytes # (1.0-4.8) k/uL ABG Total CO2 (19-24) mmol/L ABG O2 Saturation (94-97) % Potassium 5.2 H (3.5-5.1) mmol/L Chloride (98-107) mmol/L BUN (9-20) mg/dL Creatinine (0.66-1.25) mg/dL Glucose (74-99) mg/dL POC Glucose (mg/dL) 394 H 360 H (70-110) mg/dL Calcium (8.4-10.2) mg/dL Magnesium (1.6-2.3) mg/dL 09/15/22 09/15/22 09/15/22 Range/Units 00:00 05:00 05:00 WBC 18.8 H (3.8-10.6) k/uL RBC 2.62 L (4.30-5.90) m/uL Hgb 7.3 L D (13.0-17.5) gm/dL Hct 22.5 L (39.0-53.0) % Neutrophils # 17.1 H (1.3-7.7) k/uL Lymphocytes # 0.7 L (1.0-4.8) k/uL ABG Total CO2 (19-24) mmol/L ABG O2 Saturation (94-97) % Potassium (3.5-5.1) mmol/L Chloride 110 H (98-107) mmol/L BUN 27 H (9-20) mg/dL Creatinine 1.37 H (0.66-1.25) mg/dL Glucose 255 H (74-99) mg/dL POC Glucose (mg/dL) 351 H (70-110) mg/dL Calcium 7.0 L (8.4-10.2) mg/dL Magnesium 2.6 H (1.6-2.3) mg/dL 09/15/22 09/15/22 09/15/22 Range/Units 06:07 06:20 07:02 WBC (3.8-10.6) k/uL RBC (4.30-5.90) m/uL Hgb (13.0-17.5) gm/dL Hct (39.0-53.0) % Neutrophils # (1.3-7.7) k/uL Lymphocytes # (1.0-4.8) k/uL ABG Total CO2 26 H (19-24) mmol/L ABG O2 Saturation 98.7 H (94-97) % Potassium (3.5-5.1) mmol/L Chloride (98-107) mmol/L BUN (9-20) mg/dL Creatinine (0.66-1.25) mg/dL Glucose (74-99) mg/dL POC Glucose (mg/dL) 271 H 262 H (70-110) mg/dL Calcium (8.4-10.2) mg/dL Magnesium (1.6-2.3) mg/dL 09/15/22 09/15/22 Range/Units 11:09 11:36 WBC (3.8-10.6) k/uL RBC (4.30-5.90) m/uL Hgb (13.0-17.5) gm/dL Hct (39.0-53.0) % Neutrophils # (1.3-7.7) k/uL Lymphocytes # (1.0-4.8) k/uL ABG Total CO2 (19-24) mmol/L ABG O2 Saturation (94-97) % Potassium (3.5-5.1) mmol/L Chloride (98-107) mmol/L BUN (9-20) mg/dL Creatinine (0.66-1.25) mg/dL Glucose (74-99) mg/dL POC Glucose (mg/dL) 220 H 200 H (70-110) mg/dL Calcium (8.4-10.2) mg/dL Magnesium (1.6-2.3) mg/dL Microbiology - Last 24 Hours (Table) 09/11/22 13:00 Gram Stain - Final Aspirate Body Fluid Culture - Final Escherichia coli 09/11/22 19:00 Gram Stain - Final Abdomen Wound Culture - Final Escherichia coli Assessment and Plan (1) Intra-abdominal abscess Current Visit: Yes Status: Acute Code(s): K65.1 - PERITONEAL ABSCESS SNOMED Code(s): 81154937 Plan: 1patient with sepsis in this patient who did have a fever tachycardia elevated white count source is intra-abdominal in this patient with evidence of colonic diverticular perforation intra-abdominal abscess status post laparotomy drainage of the abscess and primary anastomosis , cultures growing E. coli Pseudomonas and Enterococcus faecium with sensitivities pending. 2patient with fever and elevated white count concerning for perihepatic abscess, the patient is status post CT-guided drainage culture has been obtained which dual E. coli which is sensitive pathogen 3-patient did have subsequent bowl perforation from small bowel necrosis status post extensive abdominal surgery lysis of adhesion and creation of ileostomy cultures has been obtained and those are currently pending 4-patient currently being treated the Zosyn and daptomycin which will be continued and monitored clinical course closely Time with Patient: Less than 30
--- NOTE | 2022-09-16 21:49 | P.PN ---
Subjective Progress Note Date: 09/16/22 Principal diagnosis: Intra-abdominal abscess Patient is a 52-year-old male presenting to the hospital with abdominal pain has been diagnosed with an intra-abdominal abscess from perforated diverticulum status post laparotomy and drainage of the abscess. Patient is status post IR drainage of perihepatic abscess completed on 09/11/2022, Patient was taken back to the OR on 09/13/2022 for small bowel necrosis and perforation, the patient is status post exploration laparotomy and lysis of addition resection of the ileocolonic anastomosis and drainage of the perihepatic local area abscess small bowel resection and creation of ileostomy on today's evaluation that is 09/16/2022, the patient is spiking fever since last night with a T-max of 102.1F, the patient is off pressor support per the nursing staff the patient is on the vent and FiO2 is down to 40%, he did have NG for suction Objective - Vital Signs Vital signs: Vital Signs Temp 98.4 F 09/16/22 12:00 Pulse 135 H 09/16/22 13:00 Resp 29 H 09/16/22 13:00 BP 122/49 09/16/22 10:16 Pulse Ox 95 09/16/22 13:00 FiO2 40 09/16/22 13:45 Intake & Output 09/15/22 09/16/22 09/16/22 18:59 06:59 18:59 Intake Total 3159.751 4589.559 8825.581 Output Total 2812 1480 3850 Balance 347.751 485.073 -2498.419 Weight 107.1 kg 110.3 kg Intake: IV 2359 1280 313 ACETAMINOPHEN IV (For NPO 100 ) 1,000 mg In Empty Bag 1 bag @ 400 mls/hr IVPB Q6HR [facility] Rx#:[id number] DAPTOmycin 500 mg In 150 Sodium Chloride 0.9% 50 ml @ 100 mls/hr IVPB Q24HR [facility] Rx#:[id number] Mvi, Adult No.4 with Vit 819 430 43 K 10 ml Trace (Conc-1Ml/ Dose) 1 ml Sodium Acetate 60 meq Calcium Gluconate 1.5 gm Magnesium Sulfate gm 1 gm In Amino Acids 5 %/Dextrose 20 % 1,000 ml @ 108 mls/hr IV .BY DURATION [facility] Rx#: [id number] Piperacillin-Tazobactam 3 200 .375 gm In Sodium Chloride 0.9% 100 ml @ 25 mls/hr IVPB Q8HR [facility] Rx# :[id number] Sodium Chloride 0.9% 1, 1190 750 270 000 ml @ 75 mls/hr IV . [id number] [facility] Rx#:[id number] Intake, IV Titration 800.751 685.073 728.581 Amount Cisatracurium 200 mg In 132.441 Sodium Chloride 0.9% 180 ml @ 2 MCG/KG/MIN 12.852 mls/hr IV .[id number] [facility] Rx #:[id number] DAPTOmycin 500 mg In 50 Sodium Chloride 0.9% 50 ml @ 100 mls/hr IVPB Q24HR [facility] Rx#:[id number] Mvi, Adult No.4 with Vit 252 K 10 ml Trace (Conc-1Ml/ Dose) 1 ml Potassium Phosphate 9 mmol Sodium Acetate 60 meq Calcium Gluconate 1.5 gm In Amino Acids 5 %/Dextrose 20 % 1,000 ml @ 43 mls/hr IV . BY DURATION [facility] Rx#: [id number] Norepinephrine 8 mg In 83.210 Sodium Chloride 0.9% 250 ml @ 0.03 MCG/KG/MIN 6. 217 mls/hr IV .Q24H [facility] Rx#:[id number] Piperacillin-Tazobactam 3 100 .375 gm In Sodium Chloride 0.9% 100 ml @ 25 mls/hr IVPB Q8HR [facility] Rx# :[id number] Sodium Chloride 0.9% 500 60 ml 500 ml @ 0 mls/hr IV . [facility] Rx#: [id number] Vasopressin 20 unit In 76.958 51 41.769 Sodium Chloride 0.9% 50 ml @ 0.03 UNITS/MIN 4.59 mls/hr IV .Q11H7M [facility] Rx# :[id number] fentaNYL (PF). 1,000 mcg 4.195 74.791 124.812 In Sodium Chloride 0.9% 80 ml @ 0.5 MCG/KG/HR 5. 355 mls/hr IV .[id number] [facility] Rx#:[id number] propofoL 1,000 mg In 587.157 476.072 100 Empty Bag 1 bag @ 15 MCG/ KG/MIN 9.639 mls/hr IV . [id number] [facility] Rx#:[id number] Blood Product 310 Rc As-1 Unit 310 [id number] Output: Gastric Drainage 300 250 800 Drainage 90 135 Left Lower Abdomen 50 120 Left Upper Abdomen 40 15 Urine 2422 1095 3050 Other: Voiding Method Indwelling Catheter Indwelling Catheter Indwelling Catheter # Voids 0 ABP, PAP, CO, CI - Last Documented Arterial Blood Pressure 117/54 - Exam GENERAL DESCRIPTION: A middle-age male intubated on the vent RESPIRATORY SYSTEM: Unlabored breathing , decreased breath sounds at bases HEART: S1 S2 regular rate and rhythm , ABDOMEN: Soft , midline incision is intact no output in ileostomy EXTREMITIES: No edema feet - Labs CBC & Chem 7: 09/16/22 05:19 09/16/22 05:19 Labs: Abnormal Lab Results - Last 24 Hours (Table) 09/13/22 09/15/22 09/15/22 Range/Units 09:03 09:42 17:43 WBC (3.8-10.6) k/uL RBC (4.30-5.90) m/uL Hgb (13.0-17.5) gm/dL Hct (39.0-53.0) % Neutrophils # (1.3-7.7) k/uL Lymphocytes # (1.0-4.8) k/uL ABG pH (7.35-7.45) ABG pO2 (83-108) mmHg ABG HCO3 (21-25) mmol/L ABG Total CO2 (19-24) mmol/L ABG O2 Saturation (94-97) % Chloride (98-107) mmol/L BUN (9-20) mg/dL Glucose (74-99) mg/dL POC Glucose (mg/dL) 140 H (70-110) mg/dL Calcium (8.4-10.2) mg/dL Iron 8 L (65-175) UG/DL TIBC 108 L (228-460) UG/DL % Saturation 7.41 L (15.00-50.00) Transferrin 77.2 L (204.0-354.0) mg/dL Ferritin 351.0 H (22.0-322.0) ng/mL Crossmatch See Detail 09/15/22 09/16/22 09/16/22 Range/Units 23:56 04:35 05:19 WBC (3.8-10.6) k/uL RBC (4.30-5.90) m/uL Hgb (13.0-17.5) gm/dL Hct (39.0-53.0) % Neutrophils # (1.3-7.7) k/uL Lymphocytes # (1.0-4.8) k/uL ABG pH 7.46 H (7.35-7.45) ABG pO2 116 H (83-108) mmHg ABG HCO3 27 H (21-25) mmol/L ABG Total CO2 28 H (19-24) mmol/L ABG O2 Saturation 99.3 H (94-97) % Chloride 109 H (98-107) mmol/L BUN 26 H (9-20) mg/dL Glucose 129 H (74-99) mg/dL POC Glucose (mg/dL) 144 H (70-110) mg/dL Calcium 7.5 L (8.4-10.2) mg/dL Iron (65-175) UG/DL TIBC (228-460) UG/DL % Saturation (15.00-50.00) Transferrin (204.0-354.0) mg/dL Ferritin (22.0-322.0) ng/mL Crossmatch 09/16/22 09/16/22 09/16/22 Range/Units 05:19 05:46 11:43 WBC 16.3 H (3.8-10.6) k/uL RBC 2.32 L (4.30-5.90) m/uL Hgb 6.3 L* (13.0-17.5) gm/dL Hct 19.6 L* (39.0-53.0) % Neutrophils # 14.8 H (1.3-7.7) k/uL Lymphocytes # 0.7 L (1.0-4.8) k/uL ABG pH (7.35-7.45) ABG pO2 (83-108) mmHg ABG HCO3 (21-25) mmol/L ABG Total CO2 (19-24) mmol/L ABG O2 Saturation (94-97) % Chloride (98-107) mmol/L BUN (9-20) mg/dL Glucose (74-99) mg/dL POC Glucose (mg/dL) 140 H 121 H (70-110) mg/dL Calcium (8.4-10.2) mg/dL Iron (65-175) UG/DL TIBC (228-460) UG/DL % Saturation (15.00-50.00) Transferrin (204.0-354.0) mg/dL Ferritin (22.0-322.0) ng/mL Crossmatch Microbiology - Last 24 Hours (Table) 09/11/22 13:00 Anaerobic Culture - Final Other - Other 09/11/22 19:00 Anaerobic Culture - Final Abdomen Assessment and Plan (1) Intra-abdominal abscess Current Visit: Yes Status: Acute Code(s): K65.1 - PERITONEAL ABSCESS SNOMED Code(s): 77811730 Plan: 1patient with sepsis in this patient who did have a fever tachycardia elevated white count source is intra-abdominal in this patient with evidence of colonic diverticular perforation intra-abdominal abscess status post laparotomy drainage of the abscess and primary anastomosis , cultures growing E. coli Pseudomonas and Enterococcus faecium with sensitivities pending. 2patient with fever and elevated white count concerning for perihepatic abscess, the patient is status post CT-guided drainage culture has been obtained which dual E. coli which is sensitive pathogen 3-patient did have subsequent bowl perforation from small bowel necrosis status post extensive abdominal surgery lysis of adhesion and creation of ileostomy cultures has been obtained and those are currently pending 4-patient did have new fever blood culture had been repeated we will add Eraxis for antifungal coverage continue with the Zosyn and daptomycin Family the bedside questions were answered Time with Patient: Less than 30
[2022-09-17] MEDS ORDERED: ACETAMINOPHEN IV (For NPO) 1,000 MG in EMPTY BAG 1 BAG IVPB ONE (01:40)
[2022-09-17 05:28] LABS: ABG HCO3 30 mmol/L (21-25); ABG Oxygen Saturation 99.3 % (94-97); ABG PCO2 44 mmHg (35-45); ABG PH 7.44 (7.35-7.45); ABG PO2 138 mmHg (83-108); ABG TCO2 31 mmol/L (19-24); Allen Test Performed? Yes
[2022-09-17 05:29] LABS: Glucose,Whole Blood 132 mg/dL (70-110)
[2022-09-17 05:30] LABS: Basophils % (A) 0 %; Eosinophils # (A) 0.3 k/uL (0-0.7); Eosinophils % (A) 2 %; HCT 23.2 % (39.0-53.0); HGB 7.6 gm/dL (13.0-17.5); Lymphocytes # (A) 0.7 k/uL (1.0-4.8); Lymphocytes % (A) 4 %; MCH 27.5 pg (25.0-35.0); MCHC 32.7 g/dL (31.0-37.0); MCV 84.1 fL (80.0-100.0); Mean Platelet Volume 8.1; Monocytes # (A) 0.6 k/uL (0-1.0); Monocytes % (A) 4 %; Neutrophils # (A) 15.6 k/uL (1.3-7.7); Neutrophils % (A) 89 %; Platelet Count 433 k/uL (150-450); RBC 2.75 m/uL (4.30-5.90); RDW 15.4 % (11.5-15.5); WBC 17.4 k/uL (3.8-10.6)
[2022-09-17 05:40] LABS: African American GFR (CKD) 86 (>60 ml/min/1.73 sqM); Anion Gap 4 mmol/L; Blood Urea Nitrogen 21 mg/dL (9-20); Calcium 7.9 mg/dL (8.4-10.2); Carbon Dioxide 29 mmol/L (22-30); Chloride 112 mmol/L (98-107); Glucose 116 mg/dL (74-99); Magnesium 2.2 mg/dL (1.6-2.3); Non-African American GFR(CKD) 74 (>60 ml/min/1.73 sqM); Phosphorus 4.5 mg/dL (2.5-4.5); Potassium 4.5 mmol/L (3.5-5.1); Sodium 145 mmol/L (137-145)
[2022-09-17] MEDS: INSULIN ASPART (NovoLOG) 100 UNIT/ML VIAL SQ SCH ×4 (06:04→17:24)
[2022-09-17] MEDS: METOCLOPRAMIDE 5 MG/ML 2 ML VIAL IVP SCH ×4 (06:04→17:24)
[2022-09-17] MEDS: VASOPRESSIN 20 UNIT in SODIUM CHLORIDE 0.9% 50 ML IV SCH ×3 (06:05→23:19)
[2022-09-17 06:10] LABS: Glucose,Whole Blood 125 mg/dL (70-110)
[2022-09-17] MEDS: IPRATROPIUM-ALBUTEROL 3 ML NEB INHALATION SCH ×5 (06:10→20:52)
[2022-09-17] MEDS: INSULIN DETEMIR (LEVEMIR) 100 UNIT/ML SYR SQ SCH ×2 (06:14→20:24)
[2022-09-17 06:20] LABS: ALT 99 U/L (4-49); AST 153 U/L (17-59); Albumin 2.2 g/dL (3.5-5.0); Alkaline Phosphatase 114 U/L (38-126); Total Bilirubin 0.9 mg/dL (0.2-1.3); Total Protein 4.9 g/dL (6.3-8.2)
[2022-09-17] MEDS ORDERED: ACETAMINOPHEN IV (For NPO) 1,000 MG in EMPTY BAG 1 BAG IVPB PRN (07:40)
--- NOTE | 2022-09-17 07:58 | XR ---
EXAMINATION TYPE: XR chest 1V portable DATE OF EXAM: 09/17/2022 COMPARISON: 09/16/2022 HISTORY: Tube placement TECHNIQUE: Single frontal view of the chest is obtained. FINDINGS: Bilateral lower lobe infiltrate and small right effusion. There is a calcification along t he right diaphragmatic surface. ET and NG tube and central line stable in position. No overt failure or pneumothorax. IMPRESSION: Stable bilateral infiltrates and small effusion.
[2022-09-17] MEDS: PIPERACILLIN-TAZOBACTAM 3.375 GM in SODIUM CHLORIDE 0.9% 100 ML IVPB SCH ×2 (08:02→16:54)
[2022-09-17] MEDS: PANTOPRAZOLE 40 MG/10 ML VIAL IV SCH (08:02)
[2022-09-17] MEDS: CHLORHEXIDINE GLUCONATE 15 ML CUP MUCOUS MEM SCH (08:02)
[2022-09-17] MEDS: HEPARIN SODIUM,PORCINE/PF 5,000 UNIT/0.5 ML SYRINGE SQ SCH ×2 (08:03→20:24)
[2022-09-17] MEDS: ANIDULAFUNGIN 100 MG in SODIUM CHLORIDE 0.9% 100 ML IVPB SCH (08:03)
[2022-09-17] MEDS: ARTIFICIAL TEARS-HYPROMELLOSE DROPS 15 ML BTL BOTH EYES SCH (08:03)
[2022-09-17] MEDS: DAPTOmycin 500 MG in SODIUM CHLORIDE 0.9% 50 ML IVPB SCH (08:03)
--- NOTE | 2022-09-17 08:38 | P.PN ---
Subjective Patient is seen in follow-up for acute kidney injury. Renal function improving. Nonoliguric. Intubated. Off vasopressors. Receiving TPN. Vital signs are stable. HEENT: Intubated. NG tube noted. LUNGS: Scattered rhonchi. HEART: Tachycardic. ABDOMEN: Ileostomy drain noted. EXTREMITITES: No edema. Objective - Vital Signs Vital signs: Vital Signs Temp 100.7 F H 09/17/22 04:00 Pulse 124 H 09/17/22 08:16 Resp 24 09/17/22 07:00 BP 122/49 09/16/22 10:16 Pulse Ox 98 09/17/22 07:00 FiO2 40 09/17/22 07:22 Intake & Output 09/16/22 09/17/22 09/17/22 18:59 06:59 18:59 Intake Total 3044.989 702 30.643 Output Total 5420 2415 80 Balance -2375.011 -1713 -49.357 Weight 106.7 kg Intake: IV 503 460 30 ACETAMINOPHEN IV (For NPO 100 100 ) 1,000 mg In Empty Bag 1 bag @ 400 mls/hr IVPB Q6HR [facility] Rx#:[id number] Mvi, Adult No.4 with Vit 43 K 10 ml Trace (Conc-1Ml/ Dose) 1 ml Sodium Acetate 60 meq Calcium Gluconate 1.5 gm Magnesium Sulfate gm 1 gm In Amino Acids 5 %/Dextrose 20 % 1,000 ml @ 108 mls/hr IV .BY DURATION [facility] Rx#: [id number] Sodium Chloride 0.9% 1, 360 360 30 000 ml @ 75 mls/hr IV . [id number] [facility] Rx#:[id number] Intake, IV Titration 2231.989 242 0.643 Amount DAPTOmycin 500 mg In 50 Sodium Chloride 0.9% 50 ml @ 100 mls/hr IVPB Q24HR [facility] Rx#:[id number] Mvi, Adult No.4 with Vit 1254.617 K 10 ml Trace (Conc-1Ml/ Dose) 1 ml Potassium Phosphate 9 mmol Sodium Acetate 60 meq Calcium Gluconate 1.5 gm In Amino Acids 5 %/Dextrose 20 % 1,000 ml @ 43 mls/hr IV . BY DURATION [facility] Rx#: [id number] Piperacillin-Tazobactam 3 100 .375 gm In Sodium Chloride 0.9% 100 ml @ 25 mls/hr IVPB Q8HR [facility] Rx# :[id number] Potassium Phosphate 9 126 42 mmol Sodium Acetate 60 meq Calcium Gluconate 1.5 gm In Amino Acids 5 %/ Dextrose 20 % 1,000 ml @ 43 mls/hr IV .BY DURATION [facility] Rx#:[id number] Sodium Chloride 0.9% 500 60 ml 500 ml @ 0 mls/hr IV . [facility] Rx#: [id number] Sodium Ferric Gluconat- 100 Sucrose 125 mg In Sodium Chloride 0.9% 100 ml @ 100 mls/hr IVPB DAILY [facility] Rx#:[id number] Vasopressin 20 unit In 41.769 Sodium Chloride 0.9% 50 ml @ 0.03 UNITS/MIN 4.59 mls/hr IV .Q11H7M [facility] Rx# :[id number] fentaNYL (PF). 1,000 mcg 200.000 In Sodium Chloride 0.9% 80 ml @ 0.5 MCG/KG/HR 5. 355 mls/hr IV .[id number] [facility] Rx#:[id number] propofoL 1,000 mg In 299.603 200 0.643 Empty Bag 1 bag @ 15 MCG/ KG/MIN 9.639 mls/hr IV . [id number] [facility] Rx#:[id number] Blood Product 310 Rc As-1 Unit 310 [id number] Output: Gastric Drainage 1050 400 Drainage 70 35 Left Lower Abdomen 60 30 Left Upper Abdomen 10 5 Urine 4300 1830 80 Stool 150 Other: Voiding Method Indwelling Catheter Indwelling Catheter ABP, PAP, CO, CI - Last Documented Arterial Blood Pressure 119/63 - Labs CBC & Chem 7: 09/17/22 05:07 09/17/22 05:07 Labs: Abnormal Lab Results - Last 24 Hours (Table) 09/13/22 09/16/22 09/16/22 Range/Units 09:03 11:43 18:04 WBC (3.8-10.6) k/uL RBC (4.30-5.90) m/uL Hgb (13.0-17.5) gm/dL Hct (39.0-53.0) % Neutrophils # (1.3-7.7) k/uL Lymphocytes # (1.0-4.8) k/uL ABG pO2 (83-108) mmHg ABG HCO3 (21-25) mmol/L ABG Total CO2 (19-24) mmol/L ABG O2 Saturation (94-97) % Chloride (98-107) mmol/L BUN (9-20) mg/dL Glucose (74-99) mg/dL POC Glucose (mg/dL) 121 H 128 H (70-110) mg/dL Calcium (8.4-10.2) mg/dL AST (17-59) U/L ALT (4-49) U/L Total Protein (6.3-8.2) g/dL Albumin (3.5-5.0) g/dL Crossmatch See Detail 09/16/22 09/16/22 09/17/22 Range/Units 21: 23:24 05:07 WBC (3.8-10.6) k/uL RBC (4.30-5.90) m/uL Hgb (13.0-17.5) gm/dL Hct (39.0-53.0) % Neutrophils # (1.3-7.7) k/uL Lymphocytes # (1.0-4.8) k/uL ABG pO2 (83-108) mmHg ABG HCO3 (21-25) mmol/L ABG Total CO2 (19-24) mmol/L ABG O2 Saturation (94-97) % Chloride 112 H (98-107) mmol/L BUN 21 H (9-20) mg/dL Glucose 116 H (74-99) mg/dL POC Glucose (mg/dL) 135 H 132 H (70-110) mg/dL Calcium 7.9 L (8.4-10.2) mg/dL AST 153 H (17-59) U/L ALT 99 H (4-49) U/L Total Protein 4.9 L (6.3-8.2) g/dL Albumin 2.2 L (3.5-5.0) g/dL Crossmatch 09/17/22 09/17/22 09/17/22 Range/Units 05:07 05:30 06:08 WBC 17.4 H (3.8-10.6) k/uL RBC 2.75 L (4.30-5.90) m/uL Hgb 7.6 L (13.0-17.5) gm/dL Hct 23.2 L (39.0-53.0) % Neutrophils # 15.6 H (1.3-7.7) k/uL Lymphocytes # 0.7 L (1.0-4.8) k/uL ABG pO2 138 H (83-108) mmHg ABG HCO3 30 H (21-25) mmol/L ABG Total CO2 31 H (19-24) mmol/L ABG O2 Saturation 99.3 H (94-97) % Chloride (98-107) mmol/L BUN (9-20) mg/dL Glucose (74-99) mg/dL POC Glucose (mg/dL) 125 H (70-110) mg/dL Calcium (8.4-10.2) mg/dL AST (17-59) U/L ALT (4-49) U/L Total Protein (6.3-8.2) g/dL Albumin (3.5-5.0) g/dL Crossmatch Microbiology - Last 24 Hours (Table) 09/16/22 14:01 Gram Stain - Preliminary Sputum Assessment and Plan Plan: Assessment: 1. Acute kidney injury secondary to ATN secondary to severe sepsis. Creatinine peaked at 2.1 this admission and is 1.15 today. Nonoliguric. UA fairly benign. No hydronephrosis noted on CAT scan. 2. Pneumoperitoneum status post lysis of lesions, right hemicolectomy and drainage of intra-abdominal abscess on 09/04/2022. Underwent drainage of. Hepatic abscess, lysis of lesions with small bowel resection and ileostomy on 09/13/2022. 3. History of colon cancer. 4. Severe sepsis secondary to abdominal abscess. On antibiotics. ID following. 5. Hypernatremia from lack of free water intake and free water diuresis. 6. Acute blood loss anemia status post blood transfusion. Hemoglobin 7.6 today. Plan: Start D5W at 50 mL an hour. Continue to monitor renal function and urine output. Avoid nephrotoxins. TPN per surgery.
[2022-09-17] MEDS: DEXTROSE 5% IN WATER 1,000 ML IV SCH (09:00)
--- NOTE | 2022-09-17 10:16 | P.PN ---
Subjective Progress Note Date: 09/17/22 This is a 52-year-old -[place] male with history of colon cancer, status post right hemicolectomy for cecal colon cancer on 08/29/2022. Patient was discharged uneventfully on Percocet and Motrin for pain control. Patient was readmitted on 09/03/2022, he was mostly admitted with abdominal pain, distention, nausea and vomiting which started a few days prior to his admission. Patient was seen by surgery on consultation, and he was found to have acute pneumoperitoneum. Yesterday, the patient underwent robotic-assisted laparoscopic extensive lysis of adhesions open exploratory laparotomy with right hemicolectomy and primary anastomosis drainage of abdominal abscess abdominal peritoneal lavage, Margarita spent of a SARAI drain in the pelvis and placement of the incisional wound VAC system. I was notified about this patient from Dr. Moeller yesterday, and considering his abdominal sepsis presentation considering his surgical findings considering the patient was not extubated postoperatively, we admitted the patient to the ICU, manage his ventilator overnight, and I'm evaluating the patient today on consultation. Patient had a relatively uneventful night, did not require any pressors, he did receive fluids and he seems to be hemodynamically stable, remains on mechanical ventilation. H is ventilator settings at this point are assist control rate of 18 tidal volume 500 FiO2 40% and PEEP of 5 recent ABG showed a pO2 of 79 pCO2 39 pH of 7.42 patient is on vancomycin and Zosyn for his abdominal sepsis he is on propofol at 65 mcg/kg/m he has good urine output roughly 30-50 mL per hour. Patient has a nasogastric tube applied to suction and he has a wound VAC. He also has a SARAI drain noted. Patient is sedated and calm, however I would recommend a trial of sedation interruption and possibly weaning parameters, if tolerated may consider further weaning and extubation today. Labs today showed relatively normal CBC WBC count is 8.6 hemoglobin is 10.4. Elect lites are normal BUN is 23 creatinine 1.36. Reevaluated today on 09/06/2022, patient remains in the ICU, patient was ext ubated yesterday and he tolerated extubation well over the last 24 hours. He is on 2 L nasal cannula, not in any distress. Continues to have significant nasogastric output. Patient is to be started on TPN today. Doing better than expected overall. Remains on antibiotics for his abdominal sepsis. White count is 11.8 today hemoglobin is 9.6. Elect lites are normal renal profile is normal with a creatinine of 1.14, improving since admission from 2.14 on admission. Patient is compliant with his incentive spirometry and doing a good job with I- S. Reevaluated today on 09/07/2022, patient remains in the ICU, he feels generally weak, denies any shortness of breath, no cough, no wheezing. Continues to have nasogastric tube in place, and he had 1 50 mL of output overnight. Patient on TPN for nutritional support. His sodium was noted to be elevated today, and I recommended switching his IV fluid to D5W at 100 mL per hour. His labs otherwise are unremarkable. Patient is doing well with incentive spirometry, pain is fairly well controlled. Renal profile is normal, WBC count is 11.8 hemoglobin is 9.6 The patient is seen today 09/08/2022 in follow-up in the intensive care unit. Danny jordan is currently resting comfortably in bed. Awake and alert in no acute distress. He is maintaining good O2 saturations in the mid 90s on room air. He is febrile with a temp of 101.9. Tachycardic. Hypertensive. Blood cultures pending. Abdominal x-ray revealed persistent markedly dilated small bowel loops. Peritoneal fluid cultures were positive for E. coli, Pseudomonas aeruginosa, enterococcus faecium. He remains nothing by mouth. He is continued on TPN and lipids. Antibiotics in the form of Zosyn and now daptomycin. Remains on heparin for DVT prophylaxis. He is up ambulating with assistance. The patient is seen today 09/09/2022 in follow-up in the intensive care unit. He is currently resting comfortably in bed. Awake and alert in no acute distress. White count 19.7. Hemoglobin 9.4. Platelets 245. Sodium 141. Potassium 3.9. Bicarb 24. BUN 14. Creatinine 0.78. Glucose 139. He is maintaining good O2 saturations in the mid 90s on room air. Continues with a low-grade fever currently at 100.8. Tachycardic. He is continued on TPN 108 ML's per hour. He has D5W it 100 ML's per hour. 0.9 normal setting at KVO. He is on antibiotics in the form of Zosyn and daptomycin. He is working well with the incentive spirometer. Remains on strict nothing by mouth per surgical services. The patient is seen today 09/10/2022 in follow-up in the intensive care unit. He is currently resting fairly comfortably in bed. Awake and alert in no acute distress. Chest x-ray shows improving bilateral infiltrate and small effusion. He continues to maintain good O2 saturations in the 90s on room air. Some abdominal distention and discomfort. Follow-up computed tomography scan pending. Still have an elevated temperatures up to 102.4 last night. White count 18.3. Hemoglobin 8.8. Sodium 139. Potassium 4.0. Bicarb 24. BUN 14. Creatinine 0.83. He remains on daptomycin and Zosyn. Being nourished with TPN at 108 ML's per hour. Heparin for DVT prophylaxis. The patient is seen today 09/11/2022 in follow-up in the intensive care unit. He is currently resting in bed. Awake and alert in no acute distress. Maintaining good O2 saturations in the 90s on room air. His initial peritoneal fluid cultures were positive for E. coli, pseudomonas aeruginosa, enterococcus faecium. Follow-up blood cultures are pending. He did have issues with abdominal distention. Follow-up computed tomography scan revealed loculated and non-loculated. Hepatic collections some of which demonstrate mildly thickened almeida with internal foci of air.. Hepatic abscesses are not excluded. Persistent dilatation of the small bowel small bowel wall thickening and inflammatory change in the interval colonic anastomotic site. Persistent postoperative ileus and/or obstructive change is not excluded. Adjacent drains in place. Leak is difficult to exclude. Small amount of free air persistent but improved. Chest x-ray reveals stable bilateral lower lobe infiltrate and small effusion. Left-sided PICC line remains in place. White count 16.0. Hemoglobin 9.1. Platelets 270. Sodium 136. Potassium 4.3. Bicarb 24. BUN 15. Creatinine 0.90. Glucose 124. He is continued on daptomycin and Zosyn. Continues to work with the incentive spirometer. Heparin for DVT prophylaxis. Being nourished with TPN at 108 ML's per hour. The patient is seen today 09/12/2022 in follow-up in the intensive care unit. He is currently resting comfortably in bed. Awake and alert in no acute distress. Maintaining O2 saturations in the 90s on room air. Working well with the incentive spirometer. He did undergo a a CT-guided abscess drainage of the liver yesterday with 100 purulent fluid removed. He also had several fransisca removed from his abdominal wound that drained fluid as well. Cultures are pending. A venous. [place] fluid cultures were positive for E. coli, pseudom onas aeruginosa, enterococcus faecium. White count 12.8. He will been 8.8. Platelets 302. Sodium 135. Potassium 4.8. Bicarb 24. BUN 15. Creatinine 0.79. Glucose 149. He remains on TPN at 180 MLS per hour. Continued on Zosyn and daptomycin. The patient is seen today 09/13/2022 in follow-up in the intensive care unit. He remains awake and alert. Maintaining O2 saturations in the 90s on room air. Slightly febrile at 99.6. He is tachycardic. He has been having issues now with stool and air oozing from his abdominal surgical site. Apparently he had a coughing episode and had some dehiscence in the supraumbilical location. There is also air seen from the abdominal cavity coming to the staple line. Surgical services are following and plans for return to the OR this morning. His body fluid cultures had previously been positive for E. coli, pseudomonas aeruginosa, enterococcus facing him. Wound culture still positive with gram-negative bacilli. He's been continued on daptomycin and Zosyn. White count 17.9. Hemoglobin 9.0. Platelets 458. Sodium 134. Potassium 5.0. Bicarb 21. BUN 16. Creatinine 0.01. Glucose 136. He remains on TPN at 108 ML's per hour. Lipids on Wednesdays and Saturdays. Heparin for DVT prophylaxis. Dilaudid for pain control. The patient is seen today 09/14/2022 in follow-up in the intensive care unit. He did end up going back to surgery yesterday. This is quite extensive and lasting nearly 7 hours. He had undergone an exploratory laparotomy and extensive lysis of adhesions, resection of ilealcolic anastomosis, drainage of perihepatic loculated abscess with removal of CT-guided drain, small bowel resection for small bowel necrosis/perforation, placement of ileostomy, abdominal washout with 7 L of normal saline, debridement of abdominal wall midline incision, patient of the Moiz-Hanley in the right anterior lateral hepatic space, placement of Moiz-Hanley drain in the right pelvis, quarter-inch Don drain in the subcutaneous tissue midline incision and placement of Provena incisional wound VAC system. He was returned to the intensive care unit on the mechanical ventilator. Current settings are assist-control mode of 28, tidal volume 500, FiO2 40% and a PEEP of 5. Morning blood gases revealed a pO2 of 184, pCO2 of 41, pH 7.31 on 50% FiO2. White count 20.1. Hemoglobin 9.3. Platelets 41. Sodium 131. Potassium initially 6.6 corrected to 5.9, bicarb 20, BUN 32. Creatinine 2.15. Glucose 379. Magnesium 1.4. Chest x-ray reveals bibasilar atelectasis. No evidence of pneumothorax. Endotracheal and gastric tube secured in place. Left-sided PICC line in place. Follow-up abdominal wound culture positive for E. coli. He is currently on daptomycin and Zosyn. He is requiring pressor support currently on norepinephrine at 25 mcg/m. Vasopressin at 0.03 units per minute. Propofol at 50 mcg/kg/m. Nimbex at 1.5 mcg/kg/m. 0.9 normal saline at 50 MLS per hour. TPN at 108 ML's per hour and lipids for nourishment. CVP of 10. He is status post 8 L of fluid resuscitation. Currently in a +8.6 L balance. On 09/15/2022, the patient is being seen in follow-up in the intensive care unit. The patient is currently intubated on a mechanical ventilator. The patient is sedated with propofol at 75 mcg/kg/m and the patient is also Nimbex at 1 mcg/kg/m. He is adequately sedated and paralyzed at this point in time. He remains on a mechanical ventilator. Is on assist control mode at the rate of 28, tidal volume of 500, FiO2 of 40% with a PEEP of 5. The patient blood gas from this morning shows a pH of 7.39 with a pCO2 of 41 and pO2 of 106 and this was on FiO2 of 40%. The chest x-ray from today shows some atelectatic changes in left lung base. Otherwise the lungs are well expanded. There is no evidence of pneumothorax. ET tube is in a good location at this point in time. The patient also has a orogastric tube in place. The triple-lumen catheter in the left side is also seen in the subclavian vein. Hemodynamically, the patient is on IV fluids and currently is on 0.9 at the rate of 150 mL an hour. The patient is also on pressors. He was on norepinephrine earlier this morning this was weaned off and discontinued. He remains on vasopressin physiologic dose at 0.03 units per minutes. The patient's urine output is in order of 30-40 mL an hour. That fluid balance has been 1.3 L over the past 24 hours. The viscosity 2.8 with hemoglobin of 7.3 and a drop in hemoglobin has been noted. The patient's platelet count is at 398. BUN is at 27 with a creatinine of 1.3 and a sodium level is at 138. Glucose is at 255. Antibiotic coverage is with a combination of daptomycin and Zosyn. TPN is running at the rate of 108 mL an hour. Most recent cultures from the abdominal wall this consistent with E. coli Pseudomonas and enterococcus. The surgical wound site is currently dry clean and intact. The patient is a SARAI drain in the left lower quadrant and another drain in the le ft upper quadrant. Ileostomy is viable and there is minimal amount of liquidy output collecting in the ileostomy bag. This morning, he is afebrile. He did spike a temperature yesterday. 09/16/2022, the patient remains intubated on a mechanical ventilator and the patient is being seen in follow-up in the intensive care unit. This morning, the patient is still having episodes of fever. He remains in sinus tachycardia. Remains intubated on a mechanical ventilator on a combination of propofol and fentanyl. Nimbex was discontinued yesterday. Propofol is running at a dose of 60 mcg/kg/m and fentanyl is running at 1 mcg/kg/h. He seems to be quite comfortable. He was given a brief sedation holiday yesterday and he was able to follow some simple commands. Nevertheless, he is not fully ready for weaning at this point in time. Earlier this morning, he was on assist control of 28, tidal volume of 500, FiO2 of 40% with a PEEP of 5. His peak airway pressure was 38. His minute ventilation was up to 15 L and his blood gas showed a pH of 7.46 with a pCO2 of 38 and pO2 of 116. Chest x-ray showed atelectatic change in lung bases bilaterally. ET tube remains in a good location. The patient also has a right subclavian triple-lumen catheter in place. Based on those, dropped the rate down to 22 and the dropped the tidal volume to 400. His peak air pressures down to 17. His current minute ventilation is around 11.7 L. His breathing is slightly labored on a mechanical ventilator. Is using some chest and abdominal wall muscles to generate volumes. His ileostomy is still not fully functional. His minimal amount of liquidy output collecting in the back. He does have a bowel sounds and essentially a SARAI drains in his left lower quadrant and left upper quadrant and output is serosanguineous and some the order of 200 mL every 24 hours. He is still spiking temperature and the white cell count still elevated at 16. There has been also had a further drop in hemoglobin down to 6.3. White cell count at 16.3. Platelet counts are as for 33. He is recovering from acute kidney injury. Creatinine is down to 1.4 with a BUN of 26 and the sodium levels of 139. He is on TPN for nutritional support which is running at the rate of 42 mL an hour. He is not receiving any form of enteral feeding for nutritional support. Urine output is adequate for now. Overall fluid balance over the past 24 hours has been +3.3 L. No pressors and the patient was taken off the norepinephrine yesterday. He remains on physiologic dose of vasopressin at 0.03 units an hour. On 09/17/2022, the patient is being seen for a follow-up. The patient remains in the intensive care unit intubated on a mechanical ventilator. On today's evaluation, the patient remains on propofol and is running at a dose of 40 mcg/kg/m and the patient is also on fentanyl running at 1 mcg/kg/h. He is well rested on a mechanical ventilator. His assist control mode at a rate of 22, tidal volume of 500, FiO2 40% with PEEP of 5. Blood gas showed a pH of 7.44 with a pCO2 of 44 and pO2 of 138. The patient had a follow-up chest x-ray this morning that showed small atelectatic changes in lung bases bilaterally. Orotracheal tube is in a good location. No other significant abnormalities noted. Or G-tube is in place and the patient remains on TPN for nutritional support. The patient is hemodynamically stable on no pressors. The patient was given a dose of Lasix yesterday with adequate diuresis. His sodium level is up to 145 and currently is on D5W at the rate of 50 mL an hour. Electrolytes from today shows a sodium level of 145, potassium level of 4.5, BUN is 21 with a creatinine of 1.1. The previous echo 17.4 with a hemoglobin of 7.6 and a platelet count of 433. LFTs are normal. The patient continues to spike temperature. Antibiotic modifications been done and the patient remains on IV Zosyn, daptomycin and Eraxis was also added by infectious disease. Ileostomy is more functional on today's evaluation. His liquidy output in ileostomy bag. The patient also has SARAI drains and he has left lower quadrant on the left upper quadrant and output is serosanguineous at this point in time. He continues to spike temperature. His most recent T-max is 101.5. He remains in sinus tachyca rdia with a heart rate of 120. Urine output is adequate for now. No pressors. Objective - Vital Signs Vital signs: Vital Signs Temp 101.5 F H 09/17/22 08:00 Pulse 124 H 09/17/22 08:16 Resp 23 09/17/22 08:00 BP 122/49 09/16/22 10:16 Pulse Ox 98 09/17/22 08:00 FiO2 40 09/17/22 07:22 Intake & Output 09/16/22 09/17/22 09/17/22 18:59 06:59 18:59 Intake Total 3044.989 702 560.643 Output Total 5420 2415 700 Balance -2375.011 -1713 -139.357 Weight 106.7 kg Intake: IV 503 460 260 ACETAMINOPHEN IV (For NPO 100 100 100 ) 1,000 mg In Empty Bag 1 bag @ 400 mls/hr IVPB Q6HR PRN Rx#:[id number] Mvi, Adult No.4 with Vit 43 K 10 ml Trace (Conc-1Ml/ Dose) 1 ml Sodium Acetate 60 meq Calcium Gluconate 1.5 gm Magnesium Sulfate gm 1 gm In Amino Acids 5 %/Dextrose 20 % 1,000 ml @ 108 mls/hr IV .BY DURATION [facility] Rx#: [id number] Piperacillin-Tazobactam 3 100 .375 gm In Sodium Chloride 0.9% 100 ml @ 25 mls/hr IVPB Q8HR [facility] Rx# :[id number] Sodium Chloride 0.9% 1, 360 360 60 000 ml @ 75 mls/hr IV . [id number] [facility] Rx#:[id number] Intake, IV Titration 2231.989 242 300.643 Amount Anidulafungin 100 mg In 100 Sodium Chloride 0.9% 100 ml @ 84 mls/hr IVPB DAILY [facility] Rx#:[id number] DAPTOmycin 500 mg In 50 100 Sodium Chloride 0.9% 50 ml @ 100 mls/hr IVPB Q24HR [facility] Rx#:[id number] Mvi, Adult No.4 with Vit 1254.617 K 10 ml Trace (Conc-1Ml/ Dose) 1 ml Potassium Phosphate 9 mmol Sodium Acetate 60 meq Calcium Gluconate 1.5 gm In Amino Acids 5 %/Dextrose 20 % 1,000 ml @ 43 mls/hr IV . BY DURATION [facility] Rx#: [id number] Piperacillin-Tazobactam 3 100 .375 gm In Sodium Chloride 0.9% 100 ml @ 25 mls/hr IVPB Q8HR [facility] Rx# :[id number] Potassium Phosphate 9 126 42 mmol Sodium Acetate 60 meq Calcium Gluconate 1.5 gm In Amino Acids 5 %/ Dextrose 20 % 1,000 ml @ 43 mls/hr IV .BY DURATION [facility] Rx#:[id number] Sodium Chloride 0.9% 500 60 ml 500 ml @ 0 mls/hr IV . [facility] Rx#: [id number] Sodium Ferric Gluconat- 100 100 Sucrose 125 mg In Sodium Chloride 0.9% 100 ml @ 100 mls/hr IVPB DAILY [facility] Rx#:[id number] Vasopressin 20 unit In 41.769 Sodium Chloride 0.9% 50 ml @ 0.03 UNITS/MIN 4.59 mls/hr IV .[id number] [facility] Rx# :[id number] fentaNYL (PF). 1,000 mcg 200.000 In Sodium Chloride 0.9% 80 ml @ 0.5 MCG/KG/HR 5. 355 mls/hr IV .[id number] [facility] Rx#:[id number] propofoL 1,000 mg In 299.603 200 0.643 Empty Bag 1 bag @ 15 MCG/ KG/MIN 9.639 mls/hr IV . [id number] [facility] Rx#:[id number] Blood Product 310 Rc As-1 Unit 310 [id number] Output: Gastric Drainage 1050 400 Drainage 70 35 Left Lower Abdomen 60 30 Left Upper Abdomen 10 5 Urine 4300 1830 200 Stool 150 400 Other 100 Other: Voiding Method Indwelling Catheter Indwelling Catheter ABP, PAP, CO, CI - Last Documented Arterial Blood Pressure 119/64 - Exam GENERAL EXAM: Intubated, sedated 52-year-old male patient Orogastric and orotracheal tube are both in place. The patient also has a left subclavian triple-lumen catheter. The patient is off paralytics and is only on a combination of sedation with fentanyl and propofol. HEAD: Normocephalic. EYES: Sluggish reaction of pupils, unequal size. NOSE: Oral endotracheal and gastric tube secured in place. Clear with pink turbinates. THROAT: No erythema or exudates. NECK: Left triple-lumen catheter secured in place. No masses, no JVD. CHEST: No chest wall deformity. LUNGS: Equal air entry with bilateral scattered rhonchi. CVS: S1 and S2 normal with no audible murmur, regular rhythm. ABDOMEN: Midline incision with Prevena wound VAC in place, [address]. Ileostomy in place SPINE: No scoliosis or deformity SKIN: No rashes CENTRAL NERVOUS SYSTEM: Sedated, tone is normal in all 4 extremities. EXTREMITIES: Right radial arterial line secured in place. There is no peripheral edema. No clubbing, no cyanosis. Peripheral pulses are intact. - Labs CBC & Chem 7: 09/17/22 05:07 09/17/22 05:07 Labs: Abnormal Lab Results - Last 24 Hours (Table) 09/13/22 09/16/22 09/16/22 Range/Units 09:03 11:43 18:04 WBC (3.8-10.6) k/uL RBC (4.30-5.90) m/uL Hgb (13.0-17.5) gm/dL Hct (39.0-53.0) % Neutrophils # (1.3-7.7) k/uL Lymphocytes # (1.0-4.8) k/uL ABG pO2 (83-108) mmHg ABG HCO3 (21-25) mmol/L ABG Total CO2 (19-24) mmol/L ABG O2 Saturation (94-97) % Chloride (98-107) mmol/L BUN (9-20) mg/dL Glucose (74-99) mg/dL POC Glucose (mg/dL) 121 H 128 H (70-110) mg/dL Calcium (8.4-10.2) mg/dL AST (17-59) U/L ALT (4-49) U/L Total Protein (6.3-8.2) g/dL Albumin (3.5-5.0) g/dL Crossmatch See Detail 09/16/22 09/16/22 09/17/22 Range/Units 21:28 23:24 05:07 WBC (3.8-10.6) k/uL RBC (4.30-5.90) m/uL Hgb (13.0-17.5) gm/dL Hct (39.0-53.0) % Neutrophils # (1.3-7.7) k/uL Lymphocytes # (1.0-4.8) k/uL ABG pO2 (83-108) mmHg ABG HCO3 (21-25) mmol/L ABG Total CO2 (19-24) mmol/L ABG O2 Saturation (94-97) % Chloride 112 H (98-107) mmol/L BUN 21 H (9-20) mg/dL Glucose 116 H (74-99) mg/dL POC Glucose (mg/dL) 135 H 132 H (70-110) mg/dL Calcium 7.9 L (8.4-10.2) mg/dL AST 153 H (17-59) U/L ALT 99 H (4-49) U/L Total Protein 4.9 L (6.3-8.2) g/dL Albumin 2.2 L (3.5-5.0) g/dL Crossmatch 09/17/22 09/17/22 09/17/22 Range/Units 05:07 05:30 06:08 WBC 17.4 H (3.8-10.6) k/uL RBC 2.75 L (4.30-5.90) m/uL Hgb 7.6 L (13.0-17.5) gm/dL Hct 23.2 L (39.0-53.0) % Neutrophils # 15.6 H (1.3-7.7) k/uL Lymphocytes # 0.7 L (1.0-4.8) k/uL ABG pO2 138 H (83-108) mmHg ABG HCO3 30 H (21-25) mmol/L ABG Total CO2 31 H (19-24) mmol/L ABG O2 Saturation 99.3 H (94-97) % Chloride (98-107) mmol/L BUN (9-20) mg/dL Glucose (74-99) mg/dL POC Glucose (mg/dL) 125 H (70-110) mg/dL Calcium (8.4-10.2) mg/dL AST (17-59) U/L ALT (4-49) U/L Total Protein (6.3-8.2) g/dL Albumin (3.5-5.0) g/dL Crossmatch Microbiology - Last 24 Hours (Table) 09/16/22 14:01 Gram Stain - Preliminary Sputum Assessment and Plan Plan: Acute pneumoperitoneum, secondary to perforated colonic diverticulum and transverse colon. Status post robotic-assisted laparoscopy with extensive lysis of adhesions, right hemicolectomy and primary anastomosis and drainage of abdominal abscess abdominal peritoneal lavage and placement of SARAI drain as well as incisional wound VAC system on 09/04/2022. Follow-up computed tomography scan 09/10/2022 revealed loculated and non-loculated perihepatic collections some of which demonstrate mildly thickened almeida with internal foci of air. Hepatic abscesses are not excluded. Persistent dilatation of the small bowel small bowel wall thickening and inflammatory change in the interval colonic anastomotic site. Persistent postoperative ileus and/or obstructive change is not excluded. Adjacent drains in place. Leak is difficult to exclude. Small amount of free air persistent but improved. He did undergo a CT-guided catheter drainage of the liver abscess on 09/11/2022. Abdominal wound dehiscence with stool and air leak through the incision on 09/14/2022. He was returned to the operating room that same day and had undergone an exploratory laparotomy and extensive lysis of adhesions, resection of ilealcolic anastomosis, drainage of perihepatic loculated abscess with removal of CT-guided drain, small bowel resection for small bowel necrosis/perforation, placement of ileostomy, abdominal washout with 7 L of normal saline, debridement of abdominal wall midline incision, patient of the Moiz-Hanley in the right anterior lateral hepatic space, placement of Moiz- Hanley drain in the right pelvis, quarter-inch [place] drain in the subcutaneous tissue midline incision and placement of Provena incisional wound VAC system. The ileostomy is not fully functional and the patient is possible also on the patient is receiving TPN for nutritional support Episodic fever, rule out underlying ongoing intra-abdominal infection/abscess formation. The patient is currently on a combination of Zosyn, daptomycin and Eraxis. The repeat cultures were sent yesterday. Severe abdominal sepsis secondary to E. coli, pseudomonas aeruginosa, enterococcus faecium. Remains on daptomycin and Zosyn. Septic shock secondary to above, currently Acute hypoxemic respiratory failure secondary to above currently requiring mechanical ventilation again following second surgery, remains intubated on a mechanical ventilator. Febrile illness secondary to above, consider possibility of intra-abdominal infection/abscess formation Leukocytosis secondary to above, white cell count remains elevated Sinus tachycardia secondary to sepsis, continues to be sinus tachycardia Acute kidney injury, improving and the renal function is improved since yesterday. Renal function continues to improve and the patient is producing adequate amount of urine output Acute lactic acidosis secondary to sepsis, recovered History of colon cancer status post robotic-assisted laparoscopic extended right hemicolectomy on 08/29/2022 Intra-abdominal abscess Abdominal ascites History of sarcoidosis Plan: Continue ventilator support. No ventilator changes for today Keep sedation with propofol and fentanyl, give the patient sedation holiday and wean off the propofol and continue the phentermine for now Continue TPN Continue Zosyn, daptomycin and Eraxis monitor the CVP, Continue D5 water Monitor fever pattern Monitor the output from the ileostomy and the drains General surgery follow-up IVF D5 water at the rate of 50 No pressors Not Completely ready for further weaning. I suspect that the patient still has underlying sepsis as the patient continues to have issues with leukocytosis sinus tachycardia and a higher minute ventilation and he continues to have episodes of fever, nevertheless the patient will be given a sedation holiday and assess his evidence to wean Awaiting follow-up blood cultures Prognosis is guarded We will continue to follow Critical care evaluation, more than 30 minutes. Time with Patient: Greater than 30
[2022-09-17] MEDS: SODIUM FERRIC GLUCONAT-SUCROSE 125 MG in SODIUM CHLORIDE 0.9% 100 ML IVPB SCH (11:15)
[2022-09-17] MEDS: fentaNYL (PF). 1,000 MCG in SODIUM CHLORIDE 0.9% 80 ML IV SCH (11:17)
[2022-09-17 11:23] LABS: Glucose,Whole Blood 125 mg/dL (70-110)
[2022-09-17 11:29] LABS: Glucose,Whole Blood 120 mg/dL (70-110)
[2022-09-17 11:46] LABS: ABG Base Excess 6.2 mmol/L; ABG HCO3 30 mmol/L (21-25); ABG Oxygen Saturation 98.3 % (94-97); ABG PCO2 41 mmHg (35-45); ABG PH 7.47 (7.35-7.45); ABG PO2 98 mmHg (83-108); ABG TCO2 31 mmol/L (19-24)
[2022-09-17 11:48] LABS: Allen Test Performed? no
[2022-09-17] MEDS: HYDROmorphone 1 MG/ML 1 ML SYRINGE IVP PRN ×4 (12:47→21:22)
--- NOTE | 2022-09-17 15:36 | P.PN ---
Subjective Progress Note Date: 09/17/22 Principal diagnosis: Intra-abdominal abscess Patient is a 52-year-old male presenting to the hospital with abdominal pain has been diagnosed with an intra-abdominal abscess from perforated diverticulum status post laparotomy and drainage of the abscess. Patient is status post IR drainage of perihepatic abscess completed on 09/11/2022, Patient was taken back to the OR on 09/13/2022 for small bowel necrosis and perforation, the patient is status post exploration laparotomy and lysis of addition resection of the ileocolonic anastomosis and drainage of the perihepatic local area abscess small bowel resection and creation of ileostomy on today's evaluation that is 09/17/2022, the patient did spike a fever last night and early this morning is afebrile around noon, the patient has been extubated and is breathing comfortably on 2 L nasal cannula denies any chest pa in occasional cough abdominal pain is currently controlled did have the NG no vomiting has been reported and did have output in his ileostomy, patient is currently off the pressor support per the nursing staff Objective - Vital Signs Vital signs: Vital Signs Temp 99.4 F 09/17/22 12:00 Pulse 128 H 09/17/22 13:00 Resp 26 H 09/17/22 13:00 BP 122/49 09/16/22 10:16 Pulse Ox 94 L 09/17/22 13:00 FiO2 40 09/17/22 12:00 Intake & Output 09/16/22 09/17/22 09/17/22 18:59 06:59 18:59 Intake Total 3044.597 161 6399.290 Output Total 5420 2415 2105 Balance -2375.011 -1713 -828.710 Weight 106.7 kg Intake: IV 503 460 380 ACETAMINOPHEN IV (For NPO 100 100 100 ) 1,000 mg In Empty Bag 1 bag @ 400 mls/hr IVPB Q6HR PRN Rx#:[id number] Mvi, Adult No.4 with Vit 43 K 10 ml Trace (Conc-1Ml/ Dose) 1 ml Sodium Acetate 60 meq Calcium Gluconate 1.5 gm Magnesium Sulfate gm 1 gm In Amino Acids 5 %/Dextrose 20 % 1,000 ml @ 108 mls/hr IV .BY DURATION [facility] Rx#: [id number] Piperacillin-Tazobactam 3 100 .375 gm In Sodium Chloride 0.9% 100 ml @ 25 mls/hr IVPB Q8HR [facility] Rx# :[id number] Sodium Chloride 0.9% 1, 360 360 180 000 ml @ 75 mls/hr IV . [id number] [facility] Rx#:[id number] Intake, IV Titration 2231.989 242 896.290 Amount Anidulafungin 100 mg In 100 Sodium Chloride 0.9% 100 ml @ 84 mls/hr IVPB DAILY [facility] Rx#:[id number] DAPTOmycin 500 mg In 50 100 Sodium Chloride 0.9% 50 ml @ 100 mls/hr IVPB Q24HR [facility] Rx#:[id number] Dextrose 5% in Water 1, 250 000 ml @ 50 mls/hr IV . Q20H [facility] Rx#:[id number] Mvi, Adult No.4 with Vit 168 K 10 ml Trace (Conc-1Ml/ Dose) 1 ml Potassium Phosphate 6 mmol Sodium Acetate 50 meq Calcium Gluconate 1.5 gm In Amino Acids 5 %/Dextrose 20 % 1,000 ml @ 43 mls/hr IV . BY DURATION [facility] Rx#: [id number] Mvi, Adult No.4 with Vit 1254.617 K 10 ml Trace (Conc-1Ml/ Dose) 1 ml Potassium Phosphate 9 mmol Sodium Acetate 60 meq Calcium Gluconate 1.5 gm In Amino Acids 5 %/Dextrose 20 % 1,000 ml @ 43 mls/hr IV . BY DURATION [facility] Rx#: [id number] Piperacillin-Tazobactam 3 100 .375 gm In Sodium Chloride 0.9% 100 ml @ 25 mls/hr IVPB Q8HR [facility] Rx# :[id number] Potassium Phosphate 9 126 42 mmol Sodium Acetate 60 meq Calcium Gluconate 1.5 gm In Amino Acids 5 %/ Dextrose 20 % 1,000 ml @ 43 mls/hr IV .BY DURATION [facility] Rx#:[id number] Sodium Chloride 0.9% 500 60 ml 500 ml @ 0 mls/hr IV . [facility] Rx#: [id number] Sodium Ferric Gluconat- 100 100 Sucrose 125 mg In Sodium Chloride 0.9% 100 ml @ 100 mls/hr IVPB DAILY [facility] Rx#:[id number] Vasopressin 20 unit In 41.769 Sodium Chloride 0.9% 50 ml @ 0.03 UNITS/MIN 4.59 mls/hr IV .[id number] [facility] Rx# :[id number] fentaNYL (PF). 1,000 mcg 200.000 100 In Sodium Chloride 0.9% 80 ml @ 0.5 MCG/KG/HR 5. 355 mls/hr IV .[id number] [facility] Rx#:[id number] propofoL 1,000 mg In 299.603 200 78.290 Empty Bag 1 bag @ 15 MCG/ KG/MIN 9.639 mls/hr IV . [id number] [facility] Rx#:[id number] Blood Product 310 Rc As-1 Unit 310 [id number] Output: Gastric Drainage 1050 400 Drainage 70 35 Left Lower Abdomen 60 30 Left Upper Abdomen 10 5 Urine 4300 1830 805 Stool 150 1200 Other 100 Other: Voiding Method Indwelling Catheter Indwelling Catheter Indwelling Catheter ABP, PAP, CO, CI - Last Documented Arterial Blood Pressure 133/68 - Exam GENERAL DESCRIPTION: A middle-age male lying in bed in no distress RESPIRATORY SYSTEM: Unlabored breathing , decreased breath sounds at bases HEART: S1 S2 regular rate and rhythm , ABDOMEN: Soft , midline incision is intact and did have output in ileostomy EXTREMITIES: No edema feet - Labs CBC & Chem 7: 09/17/22 05:07 09/17/22 05:07 Labs: Abnormal Lab Results - Last 24 Hours (Table) 09/16/22 09/16/22 09/16/22 Range/Units 18:04 21:28 23:24 WBC (3.8-10.6) k/uL RBC (4.30-5.90) m/uL Hgb (13.0-17.5) gm/dL Hct (39.0-53.0) % Neutrophils # (1.3-7.7) k/uL Lymphocytes # (1.0-4.8) k/uL ABG pH (7.35-7.45) ABG pO2 (83-108) mmHg ABG HCO3 (21-25) mmol/L ABG Total CO2 (19-24) mmol/L ABG O2 Saturation (94-97) % Chloride (98-107) mmol/L BUN (9-20) mg/dL Glucose (74-99) mg/dL POC Glucose (mg/dL) 128 H 135 H 132 H (70-110) mg/dL Calcium (8.4-10.2) mg/dL AST (17-59) U/L ALT (4-49) U/L Total Protein (6.3-8.2) g/dL Albumin (3.5-5.0) g/dL 09/17/22 09/17/22 09/17/22 Range/Units 05:07 05:07 05:30 WBC 17.4 H (3.8-10.6) k/uL RBC 2.75 L (4.30-5.90) m/uL Hgb 7.6 L (13.0-17.5) gm/dL Hct 23.2 L (39.0-53.0) % Neutrophils # 15.6 H (1.3-7.7) k/uL Lymphocytes # 0.7 L (1.0-4.8) k/uL ABG pH (7.35-7.45) ABG pO2 138 H (83-108) mmHg ABG HCO3 30 H (21-25) mmol/L ABG Total CO2 31 H (19-24) mmol/L ABG O2 Saturation 99.3 H (94-97) % Chloride 112 H (98-107) mmol/L BUN 21 H (9-20) mg/dL Glucose 116 H (74-99) mg/dL POC Glucose (mg/dL) (70-110) mg/dL Calcium 7.9 L (8.4-10.2) mg/dL AST 153 H (17-59) U/L ALT 99 H (4-49) U/L Total Protein 4.9 L (6.3-8.2) g/dL Albumin 2.2 L (3.5-5.0) g/dL 09/17/22 09/17/22 09/17/22 Range/Units 06:08 11:22 11:28 WBC (3.8-10.6) k/uL RBC (4.30-5.90) m/uL Hgb (13.0-17.5) gm/dL Hct (39.0-53.0) % Neutrophils # (1.3-7.7) k/uL Lymphocytes # (1.0-4.8) k/uL ABG pH (7.35-7.45) ABG pO2 (83-108) mmHg ABG HCO3 (21-25) mmol/L ABG Total CO2 (19-24) mmol/L ABG O2 Saturation (94-97) % Chloride (98-107) mmol/L BUN (9-20) mg/dL Glucose (74-99) mg/dL POC Glucose (mg/dL) 125 H 125 H 120 H (70-110) mg/dL Calcium (8.4-10.2) mg/dL AST (17-59) U/L ALT (4-49) U/L Total Protein (6.3-8.2) g/dL Albumin (3.5-5.0) g/dL 09/17/22 Range/Units 11:43 WBC (3.8-10.6) k/uL RBC (4.30-5.90) m/uL Hgb (13.0-17.5) gm/dL Hct (39.0-53.0) % Neutrophils # (1.3-7.7) k/uL Lymphocytes # (1.0-4.8) k/uL ABG pH 7.47 H (7.35-7.45) ABG pO2 (83-108) mmHg ABG HCO3 30 H (21-25) mmol/L ABG Total CO2 31 H (19-24) mmol/L ABG O2 Saturation 98.3 H (94-97) % Chloride (98-107) mmol/L BUN (9-20) mg/dL Glucose (74-99) mg/dL POC Glucose (mg/dL) (70-110) mg/dL Calcium (8.4-10.2) mg/dL AST (17-59) U/L ALT (4-49) U/L Total Protein (6.3-8.2) g/dL Albumin (3.5-5.0) g/dL Microbiology - Last 24 Hours (Table) 09/16/22 14:01 Gram Stain - Preliminary Sputum Assessment and Plan (1) Intra-abdominal abscess Current Visit: Yes Status: Acute Code(s): K65.1 - PERITONEAL ABSCESS SNOMED Code(s): 56381666 Plan: 1patient with sepsis in this patient who did have a fever tachycardia elevated white count source is intra-abdominal in this patient with evidence of colonic diverticular perforation intra-abdominal abscess status post laparotomy drainage of the abscess and primary anastomosis , cultures growing E. coli Pseudomonas and Enterococcus faecium with sensitivities pending. 2patient with fever and elevated white count concerning for perihepatic abscess, the patient is status post CT-guided drainage culture has been obtained which dual E. coli which is sensitive pathogen 3-patient did have subsequent bowl perforation from small bowel necrosis status post extensive abdominal surgery lysis of adhesion and creation of ileostomy cultures has been obtained and those are currently pending 4-patient did have new fever blood culture had been repeated. Will continue with Eraxis Zosyn and daptomycin while waiting for the cultures to finalize Discussed with the surgeon on the floor Time with Patient: Less than 30
--- NOTE | 2022-09-17 15:46 | P.PN ---
Subjective Progress Note Date: 09/17/22 CHIEF COMPLAINT: Pneumoperitoneum, abdominal pain HISTORY OF PRESENT ILLNESS: The patient is a 52-year-old male status post right hemicolectomy for colon cancer 08/29/2022. He was discharged from the hospital without sequelae 08/31/2022 and returned to the hospital 09/03/2022 for pneumoperitoneum. He is status post exploratory laparotomy, lysis of adhesions, evacuation of intra-abdominal abscess, right hemicolectomy for resection of perforated transverse colon diverticulum, 09/04/2022. He then developed acute abdominal pain with suspected bowel perforation. He was taken back to the operating room 09/13/2022 with ileostomy, drainage of perihepatic abscess and extensive lysis of adhesions with small bowel resection. Patient remains in the ICU. He was extubated this afternoon. His ostomy is functioning. He had 100ml purulent discharge noted from the Prevana wound vac. NG tube 400 mL yellowish output. SARAI drains with serous output. Patient has remained febrile temperature 101.1 he's been tachycardic. White count has gone up from 16-17. Hemoglobin has improved from 6.3-7.6 after blood transfusion. And creatinine 1.15 PHYSICAL EXAM: VITAL SIGNS: Reviewed GENERAL: Well-developed in no acute distress. HEENT: No sclera icterus. Extraocular movements grossly intact. Moist buccal mucosa. Head is atraumatic, normocephalic. No nasal drainage. NECK: Supple without lymphadenopathy. CHEST: Non-labored respirations and equal bilateral excursions. CARDIOVASCULAR: Palpable 2+ radial pulses. ABDOMEN: Nondistended. Ileostomy with stool output. SARAI drains are serous in color. Preventive on a wound VAC removed with drainage from the distal aspect of the incision MUSCULOSKELETAL: No clubbing or cyanosis. NEUROLOGIC: No focal or lateralizing signs. Cranial nerves II through XII grossly intact. PSYCH: Appropriate affect. Alert and oriented to person, place and time. SKIN: Well perfused. Good skin turgor. ASSESSMENT: 1. Pneumoperitoneum due to perforated diverticulum 2. Tachycardia with fevers consistent with sepsis 3. Acute kidney injury, failure due to severe sepsis 4. Colon cancer status post resection 5. Liver abscess, para hepatic 6. Incisional wound abscess 7. Perforated anastomosis, acute PLAN: -Continue local wound care with daily chlorhexidine cleaning of incision. Change dressing as needed -Continue ICU management -Continue supportive care -Keep patient nothing by mouth -Continue TPN for nutrition support -Continue antibiotics -DVT prophylaxis subcu heparin Physician Psychology Tech note has been reviewed by physician. Signing provider agrees with the documented findings, assessment, and plan of care. Objective - Vital Signs Vital signs: Vital Signs Temp 99.4 F 09/17/22 12:00 Pulse 129 H 09/17/22 12:00 Resp 29 H 09/17/22 12:00 BP 122/49 09/16/22 10:16 Pulse Ox 92 L 09/17/22 12:00 FiO2 40 09/17/22 10:41 Intake & Output 09/16/22 09/17/22 09/17/22 18:59 06:59 18:59 Intake Total 3044.073 010 2329.367 Output Total 5420 3505 1585 Balance -2375.011 -1713 -444.633 Weight 106.7 kg Intake: IV 503 460 350 ACETAMINOPHEN IV (For NPO 100 100 100 ) 1,000 mg In Empty Bag 1 bag @ 400 mls/hr IVPB Q6HR PRN Rx#:[id number] Mvi, Adult No.4 with Vit 43 K 10 ml Trace (Conc-1Ml/ Dose) 1 ml Sodium Acetate 60 meq Calcium Gluconate 1.5 gm Magnesium Sulfate gm 1 gm In Amino Acids 5 %/Dextrose 20 % 1,000 ml @ 108 mls/hr IV .BY DURATION [facility] Rx#: [id number] Piperacillin-Tazobactam 3 100 .375 gm In Sodium Chloride 0.9% 100 ml @ 25 mls/hr IVPB Q8HR [facility] Rx# :[id number] Sodium Chloride 0.9% 1, 360 360 150 000 ml @ 75 mls/hr IV . [id number] [facility] Rx#:[id number] Intake, IV Titration 2231.989 242 790.367 Amount Anidulafungin 100 mg In 100 Sodium Chloride 0.9% 100 ml @ 84 mls/hr IVPB DAILY [facility] Rx#:[id number] DAPTOmycin 500 mg In 50 100 Sodium Chloride 0.9% 50 ml @ 100 mls/hr IVPB Q24HR [facility] Rx#:[id number] Dextrose 5% in Water 1, 200 000 ml @ 50 mls/hr IV . Q20H [facility] Rx#:[id number] Mvi, Adult No.4 with Vit 126 K 10 ml Trace (Conc-1Ml/ Dose) 1 ml Potassium Phosphate 6 mmol Sodium Acetate 50 meq Calcium Gluconate 1.5 gm In Amino Acids 5 %/Dextrose 20 % 1,000 ml @ 43 mls/hr IV . BY DURATION [facility] Rx#: [id number] Mvi, Adult No.4 with Vit 1254.617 K 10 ml Trace (Conc-1Ml/ Dose) 1 ml Potassium Phosphate 9 mmol Sodium Acetate 60 meq Calcium Gluconate 1.5 gm In Amino Acids 5 %/Dextrose 20 % 1,000 ml @ 43 mls/hr IV . BY DURATION [facility] Rx#: [id number] Piperacillin-Tazobactam 3 100 .375 gm In Sodium Chloride 0.9% 100 ml @ 25 mls/hr IVPB Q8HR [facility] Rx# :[id number] Potassium Phosphate 9 126 42 mmol Sodium Acetate 60 meq Calcium Gluconate 1.5 gm In Amino Acids 5 %/ Dextrose 20 % 1,000 ml @ 43 mls/hr IV .BY DURATION [facility] Rx#:[id number] Sodium Chloride 0.9% 500 60 ml 500 ml @ 0 mls/hr IV . [facility] Rx#: [id number] Sodium Ferric Gluconat- 100 100 Sucrose 125 mg In Sodium Chloride 0.9% 100 ml @ 100 mls/hr IVPB DAILY [facility] Rx#:[id number] Vasopressin 20 unit In 41.769 Sodium Chloride 0.9% 50 ml @ 0.03 UNITS/MIN 4.59 mls/hr IV .[id number] [facility] Rx# :[id number] fentaNYL (PF). 1,000 mcg 200.000 100 In Sodium Chloride 0.9% 80 ml @ 0.5 MCG/KG/HR 5. 355 mls/hr IV .[id number] [facility] Rx#:[id number] propofoL 1,000 mg In 299.603 200 64.367 Empty Bag 1 bag @ 15 MCG/ KG/MIN 9.639 mls/hr IV . [id number] [facility] Rx#:[id number] Blood Product 310 Rc As-1 Unit 310 [id number] Output: Gastric Drainage 1050 400 Drainage 70 35 Left Lower Abdomen 60 30 Left Upper Abdomen 10 5 Urine 4300 1830 685 Stool 150 800 Other 100 Other: Voiding Method Indwelling Catheter Indwelling Catheter Indwelling Catheter ABP, PAP, CO, CI - Last Documented Arterial Blood Pressure 133/71 - Labs CBC & Chem 7: 09/17/22 05:07 09/17/22 05:07 Labs: Abnormal Lab Results - Last 24 Hours (Table) 09/16/22 09/16/22 09/16/22 Range/Units 18:04 21:28 23:24 WBC (3.8-10.6) k/uL RBC (4.30-5.90) m/uL Hgb (13.0-17.5) gm/dL Hct (39.0-53.0) % Neutrophils # (1.3-7.7) k/uL Lymphocytes # (1.0-4.8) k/uL ABG pH (7.35-7.45) ABG pO2 (83-108) mmHg ABG HCO3 (21-25) mmol/L ABG Total CO2 (19-24) mmol/L ABG O2 Saturation (94-97) % Chloride (98-107) mmol/L BUN (9-20) mg/dL Glucose (74-99) mg/dL POC Glucose (mg/dL) 128 H 135 H 132 H (70-110) mg/dL Calcium (8.4-10.2) mg/dL AST (17-59) U/L ALT (4-49) U/L Total Protein (6.3-8.2) g/dL Albumin (3.5-5.0) g/dL 09/17/22 09/17/22 09/17/22 Range/Units 05:07 05:07 05:30 WBC 17.4 H (3.8-10.6) k/uL RBC 2.75 L (4.30-5.90) m/uL Hgb 7.6 L (13.0-17.5) gm/dL Hct 23.2 L (39.0-53.0) % Neutrophils # 15.6 H (1.3-7.7) k/uL Lymphocytes # 0.7 L (1.0-4.8) k/uL ABG pH (7.35-7.45) ABG pO2 138 H (83-108) mmHg ABG HCO3 30 H (21-25) mmol/L ABG Total CO2 31 H (19-24) mmol/L ABG O2 Saturation 99.3 H (94-97) % Chloride 112 H (98-107) mmol/L BUN 21 H (9-20) mg/dL Glucose 116 H (74-99) mg/dL POC Glucose (mg/dL) (70-110) mg/dL Calcium 7.9 L (8.4-10.2) mg/dL AST 153 H (17-59) U/L ALT 99 H (4-49) U/L Total Protein 4.9 L (6.3-8.2) g/dL Albumin 2.2 L (3.5-5.0) g/dL 09/17/22 09/17/22 09/17/22 Range/Units 06:08 11:22 11:28 WBC (3.8-10.6) k/uL RBC (4.30-5.90) m/uL Hgb (13.0-17.5) gm/dL Hct (39.0-53.0) % Neutrophils # (1.3-7.7) k/uL Lymphocytes # (1.0-4.8) k/uL ABG pH (7.35-7.45) ABG pO2 (83-108) mmHg ABG HCO3 (21-25) mmol/L ABG Total CO2 (19-24) mmol/L ABG O2 Saturation (94-97) % Chloride (98-107) mmol/L BUN (9-20) mg/dL Glucose (74-99) mg/dL POC Glucose (mg/dL) 125 H 125 H 120 H (70-110) mg/dL Calcium (8.4-10.2) mg/dL AST (17-59) U/L ALT (4-49) U/L Total Protein (6.3-8.2) g/dL Albumin (3.5-5.0) g/dL 09/17/22 Range/Units 11:43 WBC (3.8-10.6) k/uL RBC (4.30-5.90) m/uL Hgb (13.0-17.5) gm/dL Hct (39.0-53.0) % Neutrophils # (1.3-7.7) k/uL Lymphocytes # (1.0-4.8) k/uL ABG pH 7.47 H (7.35-7.45) ABG pO2 (83-108) mmHg ABG HCO3 30 H (21-25) mmol/L ABG Total CO2 31 H (19-24) mmol/L ABG O2 Saturation 98.3 H (94-97) % Chloride (98-107) mmol/L BUN (9-20) mg/dL Glucose (74-99) mg/dL POC Glucose (mg/dL) (70-110) mg/dL Calcium (8.4-10.2) mg/dL AST (17-59) U/L ALT (4-49) U/L Total Protein (6.3-8.2) g/dL Albumin (3.5-5.0) g/dL Microbiology - Last 24 Hours (Table) 09/16/22 14:01 Gram Stain - Preliminary Sputum
--- NOTE | 2022-09-17 16:08 | P.PN ---
Subjective Progress Note Date: 09/17/22 This is a 52 year old male monitored in the intensive care unit postoperative day #4 lysis of adhesions and right hemicolectomy due to bowel perforation. Patient had end to end anastamosis. Has not had bowel movement, had KUB xray today showing multiple dilated small bowel loops possible ileus vs. obstruction. General surgery recommending patient to be NPO at this time. Heart rate remains elevated in the 120s and patient switched to IV lopressor. Remains on IV daptomycin and IV zosyn for positive peritoneal fluid culture with E. Coli, enterococcus and pseudomonas. Blood culture negative so far. Patient remains on D5 water at 100 mls/hr, sodium is slightly improved today down to 146. Continues on TPN, NG tube has been discontinued. Accuchecks switched to Q6h and small dose of levemir HS has been added. SARAI drain in place with serous drainage. Patient febrile today up to 101.9, encouraged to continue with incentive spirometer. Patient has wound vac in place to continuous suction, plan to ambulate around the room and up in the chair today. 09/09/2022 Patient is evaluated today in the ICU resting in bed. Alert x 3. Asking about discharge. Repeat blood culture is pending patient remains on IV antibiotics. White count up to 19.7 today. Patient reports BM yesterday and passing some gas today. Abdomen is more distended. Surgery recommending NG tube today. Patient remains NPO. Midline incisional wound vac in place. Patient remains with fever, using incentive spirometer reaching 1200. Continues on TPN. 09/10/2022 Patient remains in the intensive care unit. Patient continues to be NPO. 3 attempts were made to pass NG tube and were unsuccessful. Patient did have 2 BMs yesterday, abdomen remains significantly distended. Repeat abdominal pelvis CT reveals loculated and nonloculated perihepatic collections some of which demonstrate mildly thickened almeida with internal foci of air. Perihepatic abscesses are not excluded. Persistent dilation of small bowel with small bowel wall thickening and inflammatory change at the enterocolonic anastomotic site. Persistent postoperative ileus and/or obstructive changes not excluded. Adjacent drain is in place. Contrast does not opacify the anastomotic site and therefore leak is difficult to evaluate or exclude. Small amt of free air persists improved from prior study. White count 18.3 today, electrolytes are normalized and blood glucose improved to 115. Patient remains on TPN. Blood culture remains negative. Remains on IV zosyn and IV daptomycin. Temp of 100.4 and remains tachycardic 121, blood pressure stable at 131/94. 09/11/2022 Patient is evaluated today in the intensive care unit. Remains tachycardic and T-Max of 100.7 overnight. Scheduled to undergo drainage and placement of drainage tube to the perihepatic abscess noted on CT imaging with IR today. White count down to 16.0 today. Continues on IV daptoymcin and IV vancomycin. Per nursing did have a small BM overnight. 09/12/2022 Patient evaluated today in the intensive care unit. Underwent CT guided abscess drainage with 100 mls of purulent drainage and also had midline fransisca removed at the top of incision with some purulent drainage. Patients white count is down to 12.8 today. Kidney function stable, sodium 135 today. Patient has been cleared to start diet, having small BMs. Metoprolol will be changed to oral. Fever is improving. Cultures are pending from the abscess and ID is following closely. 09/13/2022 Patient continues to be monitored closely in the intensive care unit. Patient continues with significant tachycardia not improving with metoprolol and continues with abdominal distention. Cardiology was placed on consultation for the tachycardia and patient has been transitioned back to IV lopressor. Wound cultures from the CT guided are showing gram negative bacilli. This morning per nursing the abdomen was more distended and patient had felt a popping sensation with evidence of leaking of brown colored drainage from the surgical incision and the drainage bag. The surgical incision was opened yesterday at the bedside by surgery. Patient was taken for emergent exploratory laporotomy. White count is 17.9 today, sodium 134, potassium 5.0. Kidney function remains stable. Patient has been continued to be NPO no NG tube present. Labs and vitals reviewed. 09/14/2022 Patient is evaluated today he is currently in the intensive care unit intubated and sedated he is on combination of nimbex and propofol. Patient is currently on the mechanical ventilator with 40% FiO2. Patient is also requiring levophed and vasopression. Patient continues on IV daptomycin and IV zosyn. The wound culture shows E.Coli. Patient underwent extensive exploratory laporotomy yesterday with lysis of adhesions, resection of the ileocolic anastamosis due to anastomotic leak, small bowel resection for small bowel necrosis/peforation with placement of ileostomy. Patient had nataliia-stone drain x 2 placed and alpa drain placed. Abdomen was closed with a wound vac. Temp is T-max 100.4 today. Labs reveal white count of 20.1, hgb 9.3, sodium 131, potassium at 6.6 and 5.9, BUN 32, creatinine 2.15, blood glucose 394, calcium 6.4, magnesium 1.4. Patient rece ived IV magnesium, IV gluconate, and IV insulin humulin N. 09/15/2022 Patient is seen in a follow-up continues to be in the ICU with multiple medical consultations following. Patient continues on mechanical ventilation with an FiO2 of 40% and PEEP is 5. Patient is maintained on IV antibiotics in the form of dapto and Zosyn with Infectious Disease Following Closely and Culture Showing E. coli with Multiple Sensitivities. Patient Continues to Have Fevers and White Count Elevated Slightly Trending down to 18 Today. Recent Ileostomy Placed with No Function at This Time and Patient Is Maintained on TPN. Patient Continues with Drains along with a Wound VAC of the Abdomen. Hemoglobin Trending down and upon Stopping Currently Would Recommend Monitoring Closely and Transfuse of 7 or Less. Nephrology Following As Well This Patient's Kidney Functions Worsened Although Appear Better Today. Patient Remains Tachycardic on the Monitor and Troponins Have Been Negative. Recommend Continuing with Accu-Cheks per Protocol and Tight Glycemic Control. 09/16/2022 Patient is seen and evaluated in follow-up today and continues to remain on mechanical ventilation maintained on fentanyl and propofol under sedation. FiO2 is 40% with a PEEP of 5. Hemoglobin critically low at 6.3 and receiving a unit of PRBCs. Would recommend a dose of Lasix after unit of blood. Patient's overall swelling showing some improvement on chest x-ray continues to so show some stable pleural effusions. No bowel activity per nursing staff noted as of yet in the ostomy. Kidney functions are trending down. Patient is continuing to have temps and would recommend repeat blood cultures, sputum culture, urine culture. 09/17/2022 Patient is seen in follow-up this morning continues to be in the ICU on mechan ical ventilation and undergoing sedation holidays. FiO2 is 40% with a PEEP of 5. Per nursing staff patient is following commands on sedation holiday but not quite ready for weaning per pulmonary cryogenic transport driver. Patient's hemoglobin is improved today at 7.6 status post 1 unit of PRBC yesterday. White count remains slightly elevated at 17.4 and patient continues to have fevers. Infectious disease following closely and repeat blood cultures along with sputum culture have all been sent. Initial culture showing some E. coli and patient is maintained on IV antibiotics in the form of daptomycin, Eraxis, and Zosyn as well awaiting finalized cultures. Patient is noted to have some loose liquid st ool noted in the ostomy and is maintained on TPN. Patient is currently off pressor support as well. Prognosis Remains guarded. Review of systems: Unable to complete is patient is currently intubated and sedated in the ICU Active Medications Albuterol/Ipratropium (Ipratropium-Albuterol 3 Ml Neb) 3 ml INHALATION RT-Q4H [facility] Last Admin: 09/17/22 07:56 Dose: 3 ml Artificial Tears (Artificial Tears-Hypromellose Drops 15 Ml Btl) 2 drops BOTH EYES QID [facility] Last Admin: 09/17/22 08:03 Dose: 2 drops Chlorhexidine Gluconate (Chlorhexidine Gluconate 15 Ml Cup) 15 ml MUCOUS MEM BID [facility] Last Admin: 09/17/22 08:02 Dose: 15 ml Heparin Sodium (Porcine) (Heparin Sodium,Porcine/Pf 5,000 Unit/0.5 Ml Syringe) 5,000 unit SQ Q12HR [facility] Last Admin: 09/17/22 08:03 Dose: 5,000 unit Piperacillin Sod/Tazobactam (Sod 3.375 gm/ Sodium Chloride) 100 mls @ 25 mls/hr IVPB Q8HR [facility]; Protocol Last Admin: 09/17/22 08:02 Dose: 25 mls/hr Daptomycin 500 mg/ Sodium (Chloride) 50 mls @ 100 mls/hr IVPB Q24HR [facility]; Protocol Last Admin: 09/17/22 08:03 Dose: 100 mls/hr Fat Emulsion Intravenous 250 (ml/ IV Solution) 250 mls @ 21 mls/hr IV [id number]@1800 [facility] Last Admin: 09/13/22 22:42 Dose: 21 mls/hr Propofol 1,000 mg/ IV Solution 100 mls @ 9.639 mls/hr IV .[id number] [facility]; Protocol Last Titration: 09/17/22 08:11 Dose: 50 mcg/kg/min, 32.13 mls/hr Norepinephrine Bitartrate 8 mg (/ Sodium Chloride) 258 mls @ 6.217 mls/hr IV .Q24H [facility]; Protocol Last Titration: 09/16/22 01:53 Dose: 0 mcg/kg/min, 0 mls/hr Vasopressin 20 unit/ Sodium (Chloride) 51 mls @ 4.59 mls/hr IV .Q11H7M [facility]; Protocol Last Admin: 09/17/22 06:05 Dose: Not Given Fentanyl Citrate 1,000 mcg/ (Sodium Chloride) 100 mls @ 5.355 mls/hr IV .[id number] [facility]; Protocol Last Admin: 09/16/22 20:58 Dose: 1 mcg/kg/hr, 10.71 mls/hr Ferric Sodium Gluconate 125 mg (/ Sodium Chloride) 110 mls @ 100 mls/hr IVPB DAILY [facility] Stop: 09/18/22 10:05 Last Admin: 09/16/22 14:17 Dose: 100 mls/hr Anidulafungin 100 mg/ Sodium (Chloride) 130 mls @ 84 mls/hr IVPB DAILY [facility]; Protocol Last Admin: 09/17/22 08:03 Dose: 84 mls/hr Acetaminophen 1,000 mg/ IV (Solution) 100 mls @ 400 mls/hr IVPB Q6HR PRN PRN Reason: Fever >101 Stop: 09/26/22 07:41 Parenteral Vitamin Supplement 10 ml/ Zinc/Copper/Manganese/Selenium 1 ml/ Potassium Phosphate 6 mmol/ Sodium Acetate 50 meq/ Calcium Gluconate 1.5 gm/ Am nathalie Acids/Dextrose 1,053 mls @ 43 mls/hr IV .BY DURATION [facility] Potassium Phosphate 6 mmol/Sodium Acetate 50 meq/ Calcium Gluconate 1.5 gm/ Amino Acids /Dextrose 1,042 mls @ 43 mls/hr IV .BY DURATION [facility] Dextrose/Water (Dextrose 5%-Water Iv Soln) 1,000 mls @ 50 mls/hr IV .Q20H [facility] Insulin Aspart (Insulin Aspart (Novolog) 100 Unit/Ml Vial) 3 unit SQ Q6HR [facility] Last Admin: 09/17/22 06:13 Dose: 3 unit Insulin Detemir (Insulin Detemir (Levemir) 100 Unit/Ml Syr) 10 unit SQ BID@0700,2100 [facility] Last Admin: 09/17/22 06:14 Dose: 10 unit Metoclopramide HCl (Metoclopramide 5 Mg/Ml 2 Ml Vial) 10 mg IVP Q6H [facility] Last Admin: 09/17/22 06:14 Dose: 10 mg Miscellaneous Information (Potassium Replacement Protocol 1 Each [facility] [place]) 1 each MISCELLANE DAILY PRN PRN Reason: Per Protocol Miscellaneous Information (Phosphorus Replacement Protoco 1 Each [facility] [place]) 1 each MISCELLANE DAILY PRN; Protocol PRN Reason: Per Protocol Miscellaneous Information (Magnesium Replacement Protocol 1 Each [facility] [place]) 1 each MISCELLANE DAILY PRN; Protocol PRN Reason: Per Protocol Naloxone HCl (Naloxone 0.4 Mg/Ml 1 Ml Vial) 0.2 mg IV Q2M PRN PRN Reason: Opioid Reversal Ondansetron HCl (Ondansetron 4 Mg/2 Ml Vial) 4 mg IVP Q8HR PRN PRN Reason: Nausea And Vomiting Last Admin: 09/09/22 17:04 Dose: 4 mg Pantoprazole Sodium (Pantoprazole 40 Mg/10 Ml Vial) 40 mg IV DAILY [facility] Last Admin: 09/17/22 08:02 Dose: 40 mg PHYSICAL EXAMINATION: GENERAL: This is a 52-year-old male who is Currently intubated and sedated, Well developed, well nourished. Obese. Patient undergoing sedation holidays and is following commands HEENT: Pupils are round and equally reacting to light. EOMI. No scleral icterus. No conjunctival pallor. Normocephalic, atraumatic. No pharyngeal erythema. No thyromegaly. CARDIOVASCULAR: S1 and S2 muffled. Tachycardic. PULMONARY: Diminished breath sounds bilaterally with some coarse rhonchi noted ABDOMEN: Soft, Postsurgical drain x 3 present midline wound vac. ileostomy. distended, No bowel sounds. No palpable organomegaly. MUSCULOSKELETAL: No joint swelling or deformity. EXTREMITIES: No cyanosis, clubbing, generalized edema noted of bilateral upper and lower extremities NEUROLOGICAL: Unable to complete physical exam patient is currently intubated and sedated. SKIN: No rashes. Assessment: Sepsis septic shock secondary to perforated diverticulum postoperative day #10 evacuation of abscess, lysis of adhesions, right hemicolectomy. Postoperative day #4 lysis of adhesions, resection of ileocolic anastamosis due to anastomotic leak, small bowel resection for small bowel necrosis/perforation and placement of ileostomy. Status post CT guided drainage of abscess on 09/11/22 cultures showing E.Coli. Postoperative ileus Fever and persistent sinus tachycardia due to septic shock, currently off pressor support Colon cancer s/p resection on 08/29/2022 Acute kidney injury secondary to ATN and sepsis Hyperkalemia Hyperglycemia Leukocytosis Hypernatremia resolved Hx hyperlipidemia Sarcoidosis with asthma Nicotine use GI prophylaxis DVT prophylaxis Full Code Plan: Continue IV antibiotics, infectious disease following closely. Patient culture showing E. coli with multiple sensitivities and maintained on Daptomycin along with Zosyn as well as Eraxis as patient continues to have elevated white count and fevers patient is status post a unit of PRBC yesterday and hemoglobin is improved at 7.6 and recommend monitoring closely and transfuse as 7 or less Patient to continue with sedation holidays and per nursing staff patient is following commands although not quite ready for weaning from mechanical ventilation per pulmonary cryogenic transport driver was following closely currently maintained off pressor support Continue CBG Q6h hour and novolog s/s q6h. scheduled insulin added and levemir is increased, patient may require insulin gtt. patient is continued on TPN Cardiology following and patient remains tachycardic. Troponins are negative, component of sepsis with septic shock and continues to be febrile Follow up AM labs and chest x-ray ordered Repeat blood cultures and sputum culture sent as patient remains tachycardic and febrile undergoing further septic workup. Due to multiple complex medical issues, prognosis is extremely guarded We will continue to follow with surgery during hospitalization. Thank you kindly for this consultation The impression and plan of care has been dictated by Laurie Sesay, Nurse Practitioner as directed. Dr. Jeb MD I have performed a history and examination and MDM of this patient, discussed the same with the dictator, and agree with the dictator's assessment and plan as written ,documented as a scribe. Based on total visit time, I have performed more than 50% of the visit. Objective - Vital Signs Vital signs: Vital Signs Temp 100.7 F H 09/17/22 04:00 Pulse 124 H 09/17/22 08:16 Resp 24 09/17/22 07:00 BP 122/49 09/16/22 10:16 Pulse Ox 98 09/17/22 07:00 FiO2 40 09/17/22 07:22 Intake & Output 09/16/22 09/17/22 09/17/22 18:59 06:59 18:59 Intake Total 3044.989 702 30.643 Output Total 5420 2415 80 Balance -2375.011 -1713 -49.357 Weight 106.7 kg Intake: IV 503 460 30 ACETAMINOPHEN IV (For NPO 100 100 ) 1,000 mg In Empty Bag 1 bag @ 400 mls/hr IVPB Q6HR PRN Rx#:[id number] Mvi, Adult No.4 with Vit 43 K 10 ml Trace (Conc-1Ml/ Dose) 1 ml Sodium Acetate 60 meq Calcium Gluconate 1.5 gm Magnesium Sulfate gm 1 gm In Amino Acids 5 %/Dextrose 20 % 1,000 ml @ 108 mls/hr IV .BY DURATION [facility] Rx#: [id number] Sodium Chloride 0.9% 1, 360 360 30 000 ml @ 75 mls/hr IV . [id number] [facility] Rx#:[id number] Intake, IV Titration 2231.989 242 0.643 Amount DAPTOmycin 500 mg In 50 Sodium Chloride 0.9% 50 ml @ 100 mls/hr IVPB Q24HR [facility] Rx#:[id number] Mvi, Adult No.4 with Vit 1254.617 K 10 ml Trace (Conc-1Ml/ Dose) 1 ml Potassium Phosphate 9 mmol Sodium Acetate 60 meq Calcium Gluconate 1.5 gm In Amino Acids 5 %/Dextrose 20 % 1,000 ml @ 43 mls/hr IV . BY DURATION [facility] Rx#: [id number] Piperacillin-Tazobactam 3 100 .375 gm In Sodium Chloride 0.9% 100 ml @ 25 mls/hr IVPB Q8HR [facility] Rx# :[id number] Potassium Phosphate 9 126 42 mmol Sodium Acetate 60 meq Calcium Gluconate 1.5 gm In Amino Acids 5 %/ Dextrose 20 % 1,000 ml @ 43 mls/hr IV .BY DURATION [facility] Rx#:[id number] Sodium Chloride 0.9% 500 60 ml 500 ml @ 0 mls/hr IV . [facility] Rx#: [id number] Sodium Ferric Gluconat- 100 Sucrose 125 mg In Sodium Chloride 0.9% 100 ml @ 100 mls/hr IVPB DAILY [facility] Rx#:[id number] Vasopressin 20 unit In 41.769 Sodium Chloride 0.9% 50 ml @ 0.03 UNITS/MIN 4.59 mls/hr IV .[id number] [facility] Rx# :[id number] fentaNYL (PF). 1,000 mcg 200.000 In Sodium Chloride 0.9% 80 ml @ 0.5 MCG/KG/HR 5. 355 mls/hr IV .[id number] [facility] Rx#:[id number] propofoL 1,000 mg In 299.603 200 0.643 Empty Bag 1 bag @ 15 MCG/ KG/MIN 9.639 mls/hr IV . [id number] [facility] Rx#:[id number] Blood Product 310 Rc As-1 Unit 310 [id number] Output: Gastric Drainage 1050 400 Drainage 70 35 Left Lower Abdomen 60 30 Left Upper Abdomen 10 5 Urine 4300 1830 80 Stool 150 Other: Voiding Method Indwelling Catheter Indwelling Catheter ABP, PAP, CO, CI - Last Documented Arterial Blood Pressure 119/63 - Labs CBC & Chem 7: 09/17/22 05:07 09/17/22 05:07 Labs: Abnormal Lab Results - Last 24 Hours (Table) 09/13/22 09/16/22 09/16/22 Range/Units 09:03 11:43 18:04 WBC (3.8-10.6) k/uL RBC (4.30-5.90) m/uL Hgb (13.0-17.5) gm/dL Hct (39.0-53.0) % Neutrophils # (1.3-7.7) k/uL Lymphocytes # (1.0-4.8) k/uL ABG pO2 (83-108) mmHg ABG HCO3 (21-25) mmol/L ABG Total CO2 (19-24) mmol/L ABG O2 Saturation (94-97) % Chloride (98-107) mmol/L BUN (9-20) mg/dL Glucose (74-99) mg/dL POC Glucose (mg/dL) 121 H 128 H (70-110) mg/dL Calcium (8.4-10.2) mg/dL AST (17-59) U/L ALT (4-49) U/L Total Protein (6.3-8.2) g/dL Albumin (3.5-5.0) g/dL Crossmatch See Detail 09/16/22 09/16/22 09/17/22 Range/Units 21:28 23:24 05:07 WBC (3.8-10.6) k/uL RBC (4.30-5.90) m/uL Hgb (13.0-17.5) gm/dL Hct (39.0-53.0) % Neutrophils # (1.3-7.7) k/uL Lymphocytes # (1.0-4.8) k/uL ABG pO2 (83-108) mmHg ABG HCO3 (21-25) mmol/L ABG Total CO2 (19-24) mmol/L ABG O2 Saturation (94-97) % Chloride 112 H (98-107) mmol/L BUN 21 H (9-20) mg/dL Glucose 116 H (74-99) mg/dL POC Glucose (mg/dL) 135 H 132 H (70-110) mg/dL Calcium 7.9 L (8.4-10.2) mg/dL AST 153 H (17-59) U/L ALT 99 H (4-49) U/L Total Protein 4.9 L (6.3-8.2) g/dL Albumin 2.2 L (3.5-5.0) g/dL Crossmatch 09/17/22 09/17/22 09/17/22 Range/Units 05:07 05:30 06:08 WBC 17.4 H (3.8-10.6) k/uL RBC 2.75 L (4.30-5.90) m/uL Hgb 7.6 L (13.0-17.5) gm/dL Hct 23.2 L (39.0-53.0) % Neutrophils # 15.6 H (1.3-7.7) k/uL Lymphocytes # 0.7 L (1.0-4.8) k/uL ABG pO2 138 H (83-108) mmHg ABG HCO3 30 H (21-25) mmol/L ABG Total CO2 31 H (19-24) mmol/L ABG O2 Saturation 99.3 H (94-97) % Chloride (98-107) mmol/L BUN (9-20) mg/dL Glucose (74-99) mg/dL POC Glucose (mg/dL) 125 H (70-110) mg/dL Calcium (8.4-10.2) mg/dL AST (17-59) U/L ALT (4-49) U/L Total Protein (6.3-8.2) g/dL Albumin (3.5-5.0) g/dL Crossmatch Microbiology - Last 24 Hours (Table) 09/16/22 14:01 Gram Stain - Preliminary Sputum
[2022-09-17] MEDS: [UNRECOGNIZED DRUG - REMARK] IV SCH ×12 (16:52→16:54)
[2022-09-17] MEDS: FAT EMULSION 20% 250 ML in EMPTY BAG 1 BAG IV SCH (17:14)
[2022-09-17 17:30] LABS: Glucose,Whole Blood 137 mg/dL (70-110)
[2022-09-17 20:24] LABS: Glucose,Whole Blood 143 mg/dL (70-110)
[2022-09-17 23:53] LABS: Glucose,Whole Blood 141 mg/dL (70-110)
[2022-09-18] MEDS: HYDROmorphone 1 MG/ML 1 ML SYRINGE IVP PRN ×7 (00:11→19:05)
[2022-09-18] MEDS: METOCLOPRAMIDE 5 MG/ML 2 ML VIAL IVP SCH ×4 (00:12→19:05)
[2022-09-18] MEDS: INSULIN ASPART (NovoLOG) 100 UNIT/ML VIAL SQ SCH ×4 (00:12→19:05)
[2022-09-18] MEDS: PIPERACILLIN-TAZOBACTAM 3.375 GM in SODIUM CHLORIDE 0.9% 100 ML IVPB SCH ×3 (00:12→17:04)
[2022-09-18 04:28] LABS: Basophils % (A) 0 %; Eosinophils # (A) 0.3 k/uL (0-0.7); Eosinophils % (A) 1 %; HCT 25.4 % (39.0-53.0); HGB 8.2 gm/dL (13.0-17.5); Lymphocytes # (A) 0.6 k/uL (1.0-4.8); Lymphocytes % (A) 3 %; MCH 27.2 pg (25.0-35.0); MCHC 32.5 g/dL (31.0-37.0); MCV 83.7 fL (80.0-100.0); Mean Platelet Volume 8.7; Monocytes # (A) 0.5 k/uL (0-1.0); Monocytes % (A) 3 %; Neutrophils # (A) 17.6 k/uL (1.3-7.7); Neutrophils % (A) 92 %; Platelet Count 439 k/uL (150-450); RBC 3.03 m/uL (4.30-5.90); RDW 15.2 % (11.5-15.5); WBC 19.2 k/uL (3.8-10.6)
[2022-09-18 04:54] LABS: Potassium 3.9 mmol/L (3.5-5.1)
[2022-09-18 04:55] LABS: African American GFR (CKD) >90 (>60 ml/min/1.73 sqM); Anion Gap 6 mmol/L; Blood Urea Nitrogen 22 mg/dL (9-20); Calcium 8.5 mg/dL (8.4-10.2); Carbon Dioxide 28 mmol/L (22-30); Chloride 108 mmol/L (98-107); Glucose 138 mg/dL (74-99); Magnesium 2.1 mg/dL (1.6-2.3); Non-African American GFR(CKD) >90 (>60 ml/min/1.73 sqM); Phosphorus 3.4 mg/dL (2.5-4.5); Sodium 142 mmol/L (137-145)
[2022-09-18] MEDS: DEXTROSE 5% IN WATER 1,000 ML IV SCH (05:08)
[2022-09-18 05:59] LABS: Glucose,Whole Blood 140 mg/dL (70-110)
[2022-09-18] MEDS: INSULIN DETEMIR (LEVEMIR) 100 UNIT/ML SYR SQ SCH ×2 (06:16→21:01)
[2022-09-18] MEDS: HEPARIN SODIUM,PORCINE/PF 5,000 UNIT/0.5 ML SYRINGE SQ SCH ×2 (08:24→21:01)
[2022-09-18] MEDS: PANTOPRAZOLE 40 MG/10 ML VIAL IV SCH (08:25)
[2022-09-18] MEDS: SODIUM FERRIC GLUCONAT-SUCROSE 125 MG in SODIUM CHLORIDE 0.9% 100 ML IVPB SCH (08:33)
--- NOTE | 2022-09-18 08:46 | XR ---
EXAMINATION TYPE: XR chest 1V portable DATE OF EXAM: 09/18/2022 COMPARISON: 09/17/2022 HISTORY: Tube placement TECHNIQUE: Single frontal view of the chest is obtained. FINDINGS: ET tube is been removed. NG tube and central line stable. Bilateral infiltrates and small effusions stable. Heart size prominent. No pneumothorax. Suggestion of a drainage catheter overlying the right thorax. IMPRESSION: Bilateral infiltrate and small effusion stable.
[2022-09-18] MEDS: IPRATROPIUM-ALBUTEROL 3 ML NEB INHALATION SCH ×4 (08:52→20:53)
[2022-09-18] MEDS: ANIDULAFUNGIN 100 MG in SODIUM CHLORIDE 0.9% 100 ML IVPB SCH (09:31)
[2022-09-18] MEDS: DAPTOmycin 500 MG in SODIUM CHLORIDE 0.9% 50 ML IVPB SCH (09:32)
--- NOTE | 2022-09-18 09:32 | CDI ---
Documentation Clarification Form Date: 09/18/2022 08:38:46 AM From: Ginger Garces RN CCDS Phone: [phone] Admit Date: 09/03/2022 07:22:00 AM Patient Name: Roman Grajeda Visit Number: [id number] Discharge Date: ATTENTION: The Clinical Documentation Specialists (CDI) and [facility] Coding Staff appreciate your assistance in clarifying documentation. Please respond to the clarification below the line at the bottom and electronically sign. The CDI & [facility] Coding staff will review the response and follow-up if needed. Please note: Queries are made part of the Legal Health Record. If you have any questions, please contact the author of this message via ITS. Dr. Sallie Oconnor Significant Postoperative Ileus is documented 09/06, Surgical note and patient had Robotic assisted daVinci Xi laparoscopic extensive lysis of adhesions, Open exploratory laparotomy with right hemicolectomy and primary anastomosis, drainage of intra-abdominal abscess. Additional clarification is requested regarding the relationship, if any, that exists between the diagnosis and the procedure. Patients Admitting Diagnosis: Severe Sepsis, Pneumoperitoneum, History of colon cancer status post resection. Post-Operative Diagnosis: Severe Sepsis, Pneumoperitoneum, History of colon cancer status post resection, Perforated colonic diverticulum, transverse colon, Intraabdominal abscess and Abdominal Ascites. Procedure performed: Robotic assisted daVinci Xi laparoscopic extensive lysis of adhesions, Open exploratory laparotomy with right hemicolectomy and primary anastomosis, drainage of intra-abdominal abscess. History/Risk Factors:52-year-old male with abdominal distention with nausea and vomiting. Patient is status post right hemicolectomy for cecum colon cancer on 08/29/2022. Medical History: Cecum colon cancer, HLD and smoker. Clinical Indicators: 09/03, CT Abd/Pelvis: Nonspecific bowel gas pattern. Combination of ileus and/or partial obstruction is suspected. There is free air noted which is nonspecific finding in patient with recent surgery. 09/04, Abd xray: There is a sizable amount of free intraperitoneal air correlate clinically. This was noted on the prior exam. Markedly dilated bowel loops correlate for ileus or partial obstruction. Bilateral lower lobe consolidation and small pleural effusion. 09/10, CT Abd/Pelvis: 1.Loculated and nonloculated perihepatic collections some of which demonstrate mildly thickened almeida with internal foci of air.Perihepatic abscesses are not excluded. 2.Persistent dilatation of small bowel with small bowel wall thickening and inflammatory change at the enterocolonic anastomotic site.Persistent 09/16 postoperative ileus and/or obstructive changes not excluded.Adjacent drain is in place.Contrast does not opacify the anastomotic site and therefore leak is difficult to evaluate or exclude. 3.Small amount of free air persists improved from prior study Gastric Drainage: 09/05 700ml; 09/06 1750ml; 09/07 300ml; 09/15 300ml; 09/16 3517; 09/17 1450. Treatment: 09/03 NG/orogastic tube; 09/04 09/08 NG/orogastric tube to intermit suction; 09/13 NG/orogastric tube low continuous suction. What relationship, if any, exists between the diagnosis of Post-operative ileus and the procedure: [ ] Postoperative Ileus is a complication of surgical procedure [ ] Postoperative Ileus is an expected outcome of the surgical procedure [ X ] Postoperative Ileus is related to patients co-morbid condition(s) of infection & not a complication of the procedure [ ] Other please specify ____ [ ] Unable to determine (Template Last Revised: May 2020) Neto 09/26/22 18:08 REMEDIOS
--- NOTE | 2022-09-18 09:45 | P.PN ---
Subjective Patient is seen in follow-up for acute kidney injury. Renal function near baseline. Nonoliguric. Receiving TPN. Extubated 09/17/2022. Vital signs are stable. HEENT: NG tube noted. LUNGS: No audible rhonchi or wheezes. HEART: Tachycardic. ABDOMEN: Ileostomy and drain noted. EXTREMITITES: No edema. Objective - Vital Signs Vital signs: Vital Signs Temp 98.9 F 09/18/22 08:30 Pulse 122 H 09/18/22 09:30 Resp 25 H 09/18/22 09:30 BP 143/98 09/18/22 09:30 Pulse Ox 95 09/18/22 09:30 FiO2 40 09/17/22 10:41 Intake & Output 09/17/22 09/18/22 09/18/22 18:59 06:59 18:59 Intake Total 9655.870 8769 386 Output Total 3225 4125 735 Balance -1296.710 -2356 -349 Weight 101 kg Intake: IV 530 1656 386 0.9 @ KVO 330 90 ACETAMINOPHEN IV (For NPO 100 ) 1,000 mg In Empty Bag 1 bag @ 400 mls/hr IVPB Q6HR PRN Rx#:[id number] CVP 33 3 Dextrose 5% in Water 1, 550 150 000 ml @ 50 mls/hr IV . Q20H [facility] Rx#:[id number] Fat Emulsion 20% 250 ml 210 In Empty Bag 1 bag @ 21 mls/hr IV [id number]@1800 [facility] Rx#:[id number] Mvi, Adult No.4 with Vit 473 43 K 10 ml Trace (Conc-1Ml/ Dose) 1 ml Potassium Phosphate 9 mmol Sodium Acetate 60 meq Calcium Gluconate 1.5 gm In Amino Acids 5 %/Dextrose 20 % 1,000 ml @ 43 mls/hr IV . BY DURATION [facility] Rx#: [id number] Piperacillin-Tazobactam 3 100 100 .375 gm In Sodium Chloride 0.9% 100 ml @ 25 mls/hr IVPB Q8HR [facility] Rx# :[id number] Sodium Chloride 0.9% 1, 330 30 000 ml @ 75 mls/hr IV . [id number] [facility] Rx#:[id number] arterial line 30 Intake, IV Titration 1398.290 113 Amount Anidulafungin 100 mg In 100 Sodium Chloride 0.9% 100 ml @ 84 mls/hr IVPB DAILY [facility] Rx#:[id number] DAPTOmycin 500 mg In 100 Sodium Chloride 0.9% 50 ml @ 100 mls/hr IVPB Q24HR [facility] Rx#:[id number] Dextrose 5% in Water 1, 500 50 000 ml @ 50 mls/hr IV . Q20H [facility] Rx#:[id number] Fat Emulsion 20% 250 ml 42 21 In Empty Bag 1 bag @ 21 mls/hr IV [id number]@1800 [facility] Rx#:[id number] Mvi, Adult No.4 with Vit 378 42 K 10 ml Trace (Conc-1Ml/ Dose) 1 ml Potassium Phosphate 6 mmol Sodium Acetate 50 meq Calcium Gluconate 1.5 gm In Amino Acids 5 %/Dextrose 20 % 1,000 ml @ 43 mls/hr IV . BY DURATION [facility] Rx#: [id number] Sodium Ferric Gluconat- 100 Sucrose 125 mg In Sodium Chloride 0.9% 100 ml @ 100 mls/hr IVPB DAILY [facility] Rx#:[id number] fentaNYL (PF). 1,000 mcg 100 In Sodium Chloride 0.9% 80 ml @ 0.5 MCG/KG/HR 5. 355 mls/hr IV .[id number] [facility] Rx#:[id number] propofoL 1,000 mg In 78.290 Empty Bag 1 bag @ 15 MCG/ KG/MIN 9.639 mls/hr IV . [id number] [facility] Rx#:[id number] Output: Drainage 15 15 Left Lower Abdomen 10 10 Left Upper Abdomen 5 5 Urine 1460 1135 235 Stool 1650 2975 500 Other 100 Other: Voiding Method Indwelling Catheter Indwelling Catheter ABP, PAP, CO, CI - Last Documented Arterial Blood Pressure 176/96 - Labs CBC & Chem 7: 09/18/22 04:15 09/18/22 04:15 Labs: Abnormal Lab Results - Last 24 Hours (Table) 09/17/22 09/17/22 09/17/22 Range/Units 11:22 11:28 11:43 WBC (3.8-10.6) k/uL RBC (4.30-5.90) m/uL Hgb (13.0-17.5) gm/dL Hct (39.0-53.0) % Neutrophils # (1.3-7.7) k/uL Lymphocytes # (1.0-4.8) k/uL ABG pH 7.47 H (7.35-7.45) ABG HCO3 30 H (21-25) mmol/L ABG Total CO2 31 H (19-24) mmol/L ABG O2 Saturation 98.3 H (94-97) % Chloride (98-107) mmol/L BUN (9-20) mg/dL Glucose (74-99) mg/dL POC Glucose (mg/dL) 125 H 120 H (70-110) mg/dL 09/17/22 09/17/22 09/17/22 Range/Units 17:28 20:22 23:51 WBC (3.8-10.6) k/uL RBC (4.30-5.90) m/uL Hgb (13.0-17.5) gm/dL Hct (39.0-53.0) % Neutrophils # (1.3-7.7) k/uL Lymphocytes # (1.0-4.8) k/uL ABG pH (7.35-7.45) ABG HCO3 (21-25) mmol/L ABG Total CO2 (19-24) mmol/L ABG O2 Saturation (94-97) % Chloride (98-107) mmol/L BUN (9-20) mg/dL Glucose (74-99) mg/dL POC Glucose (mg/dL) 137 H 143 H 141 H (70-110) mg/dL 09/18/22 09/18/22 09/18/22 Range/Units 04:15 04:15 05:57 WBC 19.2 H (3.8-10.6) k/uL RBC 3.03 L (4.30-5.90) m/uL Hgb 8.2 L (13.0-17.5) gm/dL Hct 25.4 L (39.0-53.0) % Neutrophils # 17.6 H (1.3-7.7) k/uL Lymphocytes # 0.6 L (1.0-4.8) k/uL ABG pH (7.35-7.45) ABG HCO3 (21-25) mmol/L ABG Total CO2 (19-24) mmol/L ABG O2 Saturation (94-97) % Chloride 108 H (98-107) mmol/L BUN 22 H (9-20) mg/dL Glucose 138 H (74-99) mg/dL POC Glucose (mg/dL) 140 H (70-110) mg/dL Microbiology - Last 24 Hours (Table) 09/16/22 12:55 Blood Culture - Preliminary Blood 09/16/22 14:01 Gram Stain - Preliminary Sputum Assessment and Plan Plan: Assessment: 1. Acute kidney injury secondary to ATN secondary to severe sepsis. Creatinine peaked at 2.1 this admission and is 0.94 today. Nonoliguric. UA fairly benign. No hydronephrosis noted on CAT scan. 2. Pneumoperitoneum status post lysis of lesions, right hemicolectomy and drainage of intra-abdominal abscess on 09/04/2022. Underwent drainage of. Hepatic abscess, lysis of lesions with small bowel resection and ileostomy on 09/13/2022. 3. History of colon cancer. 4. Severe sepsis secondary to abdominal abscess. On antibiotics. ID following. 5. Hypernatremia from lack of free water intake and free water diuresis. Improved with D5W. 6. Acute blood loss anemia status post blood transfusion. Hemoglobin 8.2 today. Plan: Maintain D5W at 50 mL an hour. Continue to monitor renal function and urine output. Avoid nephrotoxins. TPN per surgery.
--- NOTE | 2022-09-18 10:11 | P.PN ---
Subjective Progress Note Date: 09/18/22 This is a 52-year-old -[place] male with history of colon cancer, status post right hemicolectomy for cecal colon cancer on 08/29/2022. Patient was discharged uneventfully on Percocet and Motrin for pain control. Patient was readmitted on 09/03/2022, he was mostly admitted with abdominal pain, distention, nausea and vomiting which started a few days prior to his admission. Patient was seen by surgery on consultation, and he was found to have acute pneumoperitoneum. Yesterday, the patient underwent robotic-assisted laparoscopic extensive lysis of adhesions open exploratory laparotomy with right hemicolectomy and primary anastomosis drainage of abdominal abscess abdominal peritoneal lavage, Margarita spent of a SARAI drain in the pelvis and placement of the incisional wound VAC system. I was notified about this patient from Dr. Moeller yesterday, and considering his abdominal sepsis presentation considering his surgical findings considering the patient was not extubated postoperatively, we admitted the patient to the ICU, manage his ventilator overnight, and I'm evaluating the patient today on consultation. Patient had a relatively uneventful night, did not require any pressors, he did receive fluids and he seems to be hemodynamically stable, remains on mechanical ventilation. H is ventilator settings at this point are assist control rate of 18 tidal volume 500 FiO2 40% and PEEP of 5 recent ABG showed a pO2 of 79 pCO2 39 pH of 7.42 patient is on vancomycin and Zosyn for his abdominal sepsis he is on propofol at 65 mcg/kg/m he has good urine output roughly 30-50 mL per hour. Patient has a nasogastric tube applied to suction and he has a wound VAC. He also has a SARAI drain noted. Patient is sedated and calm, however I would recommend a trial of sedation interruption and possibly weaning parameters, if tolerated may consider further weaning and extubation today. Labs today showed relatively normal CBC WBC count is 8.6 hemoglobin is 10.4. Elect lites are normal BUN is 23 creatinine 1.36. Reevaluated today on 09/06/2022, patient remains in the ICU, patient was ext ubated yesterday and he tolerated extubation well over the last 24 hours. He is on 2 L nasal cannula, not in any distress. Continues to have significant nasogastric output. Patient is to be started on TPN today. Doing better than expected overall. Remains on antibiotics for his abdominal sepsis. White count is 11.8 today hemoglobin is 9.6. Elect lites are normal renal profile is normal with a creatinine of 1.14, improving since admission from 2.14 on admission. Patient is compliant with his incentive spirometry and doing a good job with I- S. Reevaluated today on 09/07/2022, patient remains in the ICU, he feels generally weak, denies any shortness of breath, no cough, no wheezing. Continues to have nasogastric tube in place, and he had 1 50 mL of output overnight. Patient on TPN for nutritional support. His sodium was noted to be elevated today, and I recommended switching his IV fluid to D5W at 100 mL per hour. His labs otherwise are unremarkable. Patient is doing well with incentive spirometry, pain is fairly well controlled. Renal profile is normal, WBC count is 11.8 hemoglobin is 9.6 The patient is seen today 09/08/2022 in follow-up in the intensive care unit. Danny jordan is currently resting comfortably in bed. Awake and alert in no acute distress. He is maintaining good O2 saturations in the mid 90s on room air. He is febrile with a temp of 101.9. Tachycardic. Hypertensive. Blood cultures pending. Abdominal x-ray revealed persistent markedly dilated small bowel loops. Peritoneal fluid cultures were positive for E. coli, Pseudomonas aeruginosa, enterococcus faecium. He remains nothing by mouth. He is continued on TPN and lipids. Antibiotics in the form of Zosyn and now daptomycin. Remains on heparin for DVT prophylaxis. He is up ambulating with assistance. The patient is seen today 09/09/2022 in follow-up in the intensive care unit. He is currently resting comfortably in bed. Awake and alert in no acute distress. White count 19.7. Hemoglobin 9.4. Platelets 245. Sodium 141. Potassium 3.9. Bicarb 24. BUN 14. Creatinine 0.78. Glucose 139. He is maintaining good O2 saturations in the mid 90s on room air. Continues with a low-grade fever currently at 100.8. Tachycardic. He is continued on TPN 108 ML's per hour. He has D5W it 100 ML's per hour. 0.9 normal setting at KVO. He is on antibiotics in the form of Zosyn and daptomycin. He is working well with the incentive spirometer. Remains on strict nothing by mouth per surgical services. The patient is seen today 09/10/2022 in follow-up in the intensive care unit. He is currently resting fairly comfortably in bed. Awake and alert in no acute distress. Chest x-ray shows improving bilateral infiltrate and small effusion. He continues to maintain good O2 saturations in the 90s on room air. Some abdominal distention and discomfort. Follow-up computed tomography scan pending. Still have an elevated temperatures up to 102.4 last night. White count 18.3. Hemoglobin 8.8. Sodium 139. Potassium 4.0. Bicarb 24. BUN 14. Creatinine 0.83. He remains on daptomycin and Zosyn. Being nourished with TPN at 108 ML's per hour. Heparin for DVT prophylaxis. The patient is seen today 09/11/2022 in follow-up in the intensive care unit. He is currently resting in bed. Awake and alert in no acute distress. Maintaining good O2 saturations in the 90s on room air. His initial peritoneal fluid cultures were positive for E. coli, pseudomonas aeruginosa, enterococcus faecium. Follow-up blood cultures are pending. He did have issues with abdominal distention. Follow-up computed tomography scan revealed loculated and non-loculated. Hepatic collections some of which demonstrate mildly thickened almeida with internal foci of air.. Hepatic abscesses are not excluded. Persistent dilatation of the small bowel small bowel wall thickening and inflammatory change in the interval colonic anastomotic site. Persistent postoperative ileus and/or obstructive change is not excluded. Adjacent drains in place. Leak is difficult to exclude. Small amount of free air persistent but improved. Chest x-ray reveals stable bilateral lower lobe infiltrate and small effusion. Left-sided PICC line remains in place. White count 16.0. Hemoglobin 9.1. Platelets 270. Sodium 136. Potassium 4.3. Bicarb 24. BUN 15. Creatinine 0.90. Glucose 124. He is continued on daptomycin and Zosyn. Continues to work with the incentive spirometer. Heparin for DVT prophylaxis. Being nourished with TPN at 108 ML's per hour. The patient is seen today 09/12/2022 in follow-up in the intensive care unit. He is currently resting comfortably in bed. Awake and alert in no acute distress. Maintaining O2 saturations in the 90s on room air. Working well with the incentive spirometer. He did undergo a a CT-guided abscess drainage of the liver yesterday with 100 purulent fluid removed. He also had several fransisca removed from his abdominal wound that drained fluid as well. Cultures are pending. A venous. [place] fluid cultures were positive for E. coli, pseudom onas aeruginosa, enterococcus faecium. White count 12.8. He will been 8.8. Platelets 302. Sodium 135. Potassium 4.8. Bicarb 24. BUN 15. Creatinine 0.79. Glucose 149. He remains on TPN at 180 MLS per hour. Continued on Zosyn and daptomycin. The patient is seen today 09/13/2022 in follow-up in the intensive care unit. He remains awake and alert. Maintaining O2 saturations in the 90s on room air. Slightly febrile at 99.6. He is tachycardic. He has been having issues now with stool and air oozing from his abdominal surgical site. Apparently he had a coughing episode and had some dehiscence in the supraumbilical location. There is also air seen from the abdominal cavity coming to the staple line. Surgical services are following and plans for return to the OR this morning. His body fluid cultures had previously been positive for E. coli, pseudomonas aeruginosa, enterococcus facing him. Wound culture still positive with gram-negative bacilli. He's been continued on daptomycin and Zosyn. White count 17.9. Hemoglobin 9.0. Platelets 458. Sodium 134. Potassium 5.0. Bicarb 21. BUN 16. Creatinine 0.01. Glucose 136. He remains on TPN at 108 ML's per hour. Lipids on Wednesdays and Saturdays. Heparin for DVT prophylaxis. Dilaudid for pain control. The patient is seen today 09/14/2022 in follow-up in the intensive care unit. He did end up going back to surgery yesterday. This is quite extensive and lasting nearly 7 hours. He had undergone an exploratory laparotomy and extensive lysis of adhesions, resection of ilealcolic anastomosis, drainage of perihepatic loculated abscess with removal of CT-guided drain, small bowel resection for small bowel necrosis/perforation, placement of ileostomy, abdominal washout with 7 L of normal saline, debridement of abdominal wall midline incision, patient of the Moiz-Hanley in the right anterior lateral hepatic space, placement of Moiz-Hanley drain in the right pelvis, quarter-inch Don drain in the subcutaneous tissue midline incision and placement of Provena incisional wound VAC system. He was returned to the intensive care unit on the mechanical ventilator. Current settings are assist-control mode of 28, tidal volume 500, FiO2 40% and a PEEP of 5. Morning blood gases revealed a pO2 of 184, pCO2 of 41, pH 7.31 on 50% FiO2. White count 20.1. Hemoglobin 9.3. Platelets 41. Sodium 131. Potassium initially 6.6 corrected to 5.9, bicarb 20, BUN 32. Creatinine 2.15. Glucose 379. Magnesium 1.4. Chest x-ray reveals bibasilar atelectasis. No evidence of pneumothorax. Endotracheal and gastric tube secured in place. Left-sided PICC line in place. Follow-up abdominal wound culture positive for E. coli. He is currently on daptomycin and Zosyn. He is requiring pressor support currently on norepinephrine at 25 mcg/m. Vasopressin at 0.03 units per minute. Propofol at 50 mcg/kg/m. Nimbex at 1.5 mcg/kg/m. 0.9 normal saline at 50 MLS per hour. TPN at 108 ML's per hour and lipids for nourishment. CVP of 10. He is status post 8 L of fluid resuscitation. Currently in a +8.6 L balance. On 09/15/2022, the patient is being seen in follow-up in the intensive care unit. The patient is currently intubated on a mechanical ventilator. The patient is sedated with propofol at 75 mcg/kg/m and the patient is also Nimbex at 1 mcg/kg/m. He is adequately sedated and paralyzed at this point in time. He remains on a mechanical ventilator. Is on assist control mode at the rate of 28, tidal volume of 500, FiO2 of 40% with a PEEP of 5. The patient blood gas from this morning shows a pH of 7.39 with a pCO2 of 41 and pO2 of 106 and this was on FiO2 of 40%. The chest x-ray from today shows some atelectatic changes in left lung base. Otherwise the lungs are well expanded. There is no evidence of pneumothorax. ET tube is in a good location at this point in time. The patient also has a orogastric tube in place. The triple-lumen catheter in the left side is also seen in the subclavian vein. Hemodynamically, the patient is on IV fluids and currently is on 0.9 at the rate of 150 mL an hour. The patient is also on pressors. He was on norepinephrine earlier this morning this was weaned off and discontinued. He remains on vasopressin physiologic dose at 0.03 units per minutes. The patient's urine output is in order of 30-40 mL an hour. That fluid balance has been 1.3 L over the past 24 hours. The viscosity 2.8 with hemoglobin of 7.3 and a drop in hemoglobin has been noted. The patient's platelet count is at 398. BUN is at 27 with a creatinine of 1.3 and a sodium level is at 138. Glucose is at 255. Antibiotic coverage is with a combination of daptomycin and Zosyn. TPN is running at the rate of 108 mL an hour. Most recent cultures from the abdominal wall this consistent with E. coli Pseudomonas and enterococcus. The surgical wound site is currently dry clean and intact. The patient is a SARAI drain in the left lower quadrant and another drain in the le ft upper quadrant. Ileostomy is viable and there is minimal amount of liquidy output collecting in the ileostomy bag. This morning, he is afebrile. He did spike a temperature yesterday. 09/16/2022, the patient remains intubated on a mechanical ventilator and the patient is being seen in follow-up in the intensive care unit. This morning, the patient is still having episodes of fever. He remains in sinus tachycardia. Remains intubated on a mechanical ventilator on a combination of propofol and fentanyl. Nimbex was discontinued yesterday. Propofol is running at a dose of 60 mcg/kg/m and fentanyl is running at 1 mcg/kg/h. He seems to be quite comfortable. He was given a brief sedation holiday yesterday and he was able to follow some simple commands. Nevertheless, he is not fully ready for weaning at this point in time. Earlier this morning, he was on assist control of 28, tidal volume of 500, FiO2 of 40% with a PEEP of 5. His peak airway pressure was 38. His minute ventilation was up to 15 L and his blood gas showed a pH of 7.46 with a pCO2 of 38 and pO2 of 116. Chest x-ray showed atelectatic change in lung bases bilaterally. ET tube remains in a good location. The patient also has a right subclavian triple-lumen catheter in place. Based on those, dropped the rate down to 22 and the dropped the tidal volume to 400. His peak air pressures down to 17. His current minute ventilation is around 11.7 L. His breathing is slightly labored on a mechanical ventilator. Is using some chest and abdominal wall muscles to generate volumes. His ileostomy is still not fully functional. His minimal amount of liquidy output collecting in the back. He does have a bowel sounds and essentially a SARAI drains in his left lower quadrant and left upper quadrant and output is serosanguineous and some the order of 200 mL every 24 hours. He is still spiking temperature and the white cell count still elevated at 16. There has been also had a further drop in hemoglobin down to 6.3. White cell count at 16.3. Platelet counts are as for 33. He is recovering from acute kidney injury. Creatinine is down to 1.4 with a BUN of 26 and the sodium levels of 139. He is on TPN for nutritional support which is running at the rate of 42 mL an hour. He is not receiving any form of enteral feeding for nutritional support. Urine output is adequate for now. Overall fluid balance over the past 24 hours has been +3.3 L. No pressors and the patient was taken off the norepinephrine yesterday. He remains on physiologic dose of vasopressin at 0.03 units an hour. On 09/17/2022, the patient is being seen for a follow-up. The patient remains in the intensive care unit intubated on a mechanical ventilator. On today's evaluation, the patient remains on propofol and is running at a dose of 40 mcg/kg/m and the patient is also on fentanyl running at 1 mcg/kg/h. He is well rested on a mechanical ventilator. His assist control mode at a rate of 22, tidal volume of 500, FiO2 40% with PEEP of 5. Blood gas showed a pH of 7.44 with a pCO2 of 44 and pO2 of 138. The patient had a follow-up chest x-ray this morning that showed small atelectatic changes in lung bases bilaterally. Orotracheal tube is in a good location. No other significant abnormalities noted. Or G-tube is in place and the patient remains on TPN for nutritional support. The patient is hemodynamically stable on no pressors. The patient was given a dose of Lasix yesterday with adequate diuresis. His sodium level is up to 145 and currently is on D5W at the rate of 50 mL an hour. Electrolytes from today shows a sodium level of 145, potassium level of 4.5, BUN is 21 with a creatinine of 1.1. The previous echo 17.4 with a hemoglobin of 7.6 and a platelet count of 433. LFTs are normal. The patient continues to spike temperature. Antibiotic modifications been done and the patient remains on IV Zosyn, daptomycin and Eraxis was also added by infectious disease. Ileostomy is more functional on today's evaluation. His liquidy output in ileostomy bag. The patient also has SARAI drains and he has left lower quadrant on the left upper quadrant and output is serosanguineous at this point in time. He continues to spike temperature. His most recent T-max is 101.5. He remains in sinus tachyca rdia with a heart rate of 120. Urine output is adequate for now. No pressors. On today's evaluation of 09/18/2022, the patient is being seen for a follow-up. Note that the patient was weaned off the mechanical ventilator and was extubated successfully yesterday. He is off propofol. Is off fentanyl. He was given this point his breathing trial and following that the patient was extubated. Th is morning he is on oxygen at 2 L nasal cannula and his calm and comfortable. In terms of his overall hemodynamics, continues to have some sinus tachycardia. Hemodynamically stable. He is on no pressors. He is still spiking episodes of temperature. His ileostomy is functional and the patient had a high output ileostomy and he produced more than 2 L of ileostomy output over the past 24 hours. NG output is minimal at this point in time. Surgical site was inspected and the patient has some purulent drainage from the anterior edge of the surgical wound. All of the fransisca are in place still. Minimal amount of serous drainage at the edges of the wound. [place] in place. The patient has 2 SARAI drains in his upper and left lower quadrants, output is minimal at this point in time. The patient is CURRENTLY ON FOR NUTRITIONAL SUPPORT. THE PATIENT IS COMING COMBINATION OF ZOSYN and daptomycin and Eraxis as broad-spectrum antibiotic coverage. On his blood work, the patient's echoes at 19. Hemoglobin is at 8.2 and platelet count is at 439. BUN is at 22 and a creatinine of 0.9 and sodium levels of 142. His T-max is 100.4, afebrile this morning. He is still on TPN for nutritional support. Is on Levemir insulin 10 units twice a day and is on Dilaudid for pain control. Objective - Vital Signs Vital signs: Vital Signs Temp 98.9 F 09/18/22 08:30 Pulse 122 H 09/18/22 09:30 Resp 25 H 09/18/22 09:30 BP 143/98 09/18/22 09:30 Pulse Ox 95 09/18/22 09:30 FiO2 40 09/17/22 10:41 Intake & Output 09/17/22 09/18/22 09/18/22 18:59 06:59 18:59 Intake Total 4312.493 7929 386 Output Total 3225 4125 735 Balance -1296.710 -2356 -349 Weight 101 kg Intake: IV 530 1656 386 0.9 @ KVO 330 90 ACETAMINOPHEN IV (For NPO 100 ) 1,000 mg In Empty Bag 1 bag @ 400 mls/hr IVPB Q6HR PRN Rx#:[id number] CVP 33 3 Dextrose 5% in Water 1, 550 150 000 ml @ 50 mls/hr IV . Q20H VERA Rx#:[id number] Fat Emulsion 20% 250 ml 210 In Empty Bag 1 bag @ 21 mls/hr IV [id number] VERA Rx#:[id number] Mvi, Adult No.4 with Vit 473 43 K 10 ml Trace (Conc-1Ml/ Dose) 1 ml Potassium Phosphate 9 mmol Sodium Acetate 60 meq Calcium Gluconate 1.5 gm In Amino Acids 5 %/Dextrose 20 % 1,000 ml @ 43 mls/hr IV . BY DURATION VERA Rx#: [id number] Piperacillin-Tazobactam 3 100 100 .375 gm In Sodium Chloride 0.9% 100 ml @ 25 mls/hr IVPB Q8HR VERA Rx# :[id number] Sodium Chloride 0.9% 1, 330 30 000 ml @ 75 mls/hr IV . [id number] VERA Rx#:[id number] arterial line 30 Intake, IV Titration 1398.290 113 Amount Anidulafungin 100 mg In 100 Sodium Chloride 0.9% 100 ml @ 84 mls/hr IVPB DAILY VERA Rx#:[id number] DAPTOmycin 500 mg In 100 Sodium Chloride 0.9% 50 ml @ 100 mls/hr IVPB Q24HR VERA Rx#:[id number] Dextrose 5% in Water 1, 500 50 000 ml @ 50 mls/hr IV . Q20H VERA Rx#:[id number] Fat Emulsion 20% 250 ml 42 21 In Empty Bag 1 bag @ 21 mls/hr IV [id number] VERA Rx#:[id number] Mvi, Adult No.4 with Vit 378 42 K 10 ml Trace (Conc-1Ml/ Dose) 1 ml Potassium Phosphate 6 mmol Sodium Acetate 50 meq Calcium Gluconate 1.5 gm In Amino Acids 5 %/Dextrose 20 % 1,000 ml @ 43 mls/hr IV . BY DURATION VERA Rx#: [id number] Sodium Ferric Gluconat- 100 Sucrose 125 mg In Sodium Chloride 0.9% 100 ml @ 100 mls/hr IVPB DAILY VERA Rx#:[id number] fentaNYL (PF). 1,000 mcg 100 In Sodium Chloride 0.9% 80 ml @ 0.5 MCG/KG/HR 5. 355 mls/hr IV .[id number] VERA Rx#:[id number] propofoL 1,000 mg In 78.290 Empty Bag 1 bag @ 15 MCG/ KG/MIN 9.639 mls/hr IV . [id number] VERA Rx#:[id number] Output: Drainage 15 15 Left Lower Abdomen 10 10 Left Upper Abdomen 5 5 Urine 1460 1135 235 Stool 1650 2975 500 Other 100 Other: Voiding Method Indwelling Catheter Indwelling Catheter ABP, PAP, CO, CI - Last Documented Arterial Blood Pressure 176/96 - Exam GENERAL EXAM: The patient is awake and alert, 52-year-old male patient patient has an NG tube in place. The patient also has a left subclavian triple-lumen catheter. HEAD: Normocephalic. NOSE: Oral endotracheal and gastric tube secured in place. Clear with pink turbinates. THROAT: No erythema or exudates. NECK: Left triple-lumen catheter secured in place. No masses, no JVD. CHEST: No chest wall deformity. LUNGS: Equal air entry with bilateral scattered rhonchi. CVS: S1 and S2 normal with no audible murmur, regular rhythm. ABDOMEN: Midline incision this showing some purulent drainage minutes inferior edge which can be no doubt upon palpation. No direct tenderness. No rebound tenderness. No guarding., [address] SPINE: No scoliosis or deformity SKIN: No rashes CENTRAL NERVOUS SYSTEneurologically, awake and alert and communicating.REMITIES: Right radial arterial line secured in place. There is no peripheral edema. No clubbing, no cyanosis. Peripheral pulses are intact. - Labs CBC & Chem 7: 09/18/22 04:15 09/18/22 04:15 Labs: Abnormal Lab Results - Last 24 Hours (Table) 09/17/22 09/17/22 09/17/22 Range/Units 11:22 11:28 11:43 WBC (3.8-10.6) k/uL RBC (4.30-5.90) m/uL Hgb (13.0-17.5) gm/dL Hct (39.0-53.0) % Neutrophils # (1.3-7.7) k/uL Lymphocytes # (1.0-4.8) k/uL ABG pH 7.47 H (7.35-7.45) ABG HCO3 30 H (21-25) mmol/L ABG Total CO2 31 H (19-24) mmol/L ABG O2 Saturation 98.3 H (94-97) % Chloride (98-107) mmol/L BUN (9-20) mg/dL Glucose (74-99) mg/dL POC Glucose (mg/dL) 125 H 120 H (70-110) mg/dL 09/17/22 09/17/22 09/17/22 Range/Units 17:28 20:22 23:51 WBC (3.8-10.6) k/uL RBC (4.30-5.90) m/uL Hgb (13.0-17.5) gm/dL Hct (39.0-53.0) % Neutrophils # (1.3-7.7) k/uL Lymphocytes # (1.0-4.8) k/uL ABG pH (7.35-7.45) ABG HCO3 (21-25) mmol/L ABG Total CO2 (19-24) mmol/L ABG O2 Saturation (94-97) % Chloride (98-107) mmol/L BUN (9-20) mg/dL Glucose (74-99) mg/dL POC Glucose (mg/dL) 137 H 143 H 141 H (70-110) mg/dL 09/18/22 09/18/22 09/18/22 Range/Units 04:15 04:15 05:57 WBC 19.2 H (3.8-10.6) k/uL RBC 3.03 L (4.30-5.90) m/uL Hgb 8.2 L (13.0-17.5) gm/dL Hct 25.4 L (39.0-53.0) % Neutrophils # 17.6 H (1.3-7.7) k/uL Lymphocytes # 0.6 L (1.0-4.8) k/uL ABG pH (7.35-7.45) ABG HCO3 (21-25) mmol/L ABG Total CO2 (19-24) mmol/L ABG O2 Saturation (94-97) % Chloride 108 H (98-107) mmol/L BUN 22 H (9-20) mg/dL Glucose 138 H (74-99) mg/dL POC Glucose (mg/dL) 140 H (70-110) mg/dL Microbiology - Last 24 Hours (Table) 09/16/22 12:55 Blood Culture - Preliminary Blood 09/16/22 14:01 Gram Stain - Preliminary Sputum Assessment and Plan Plan: Acute pneumoperitoneum, secondary to perforated colonic diverticulum and transverse colon. Status post robotic-assisted laparoscopy with extensive lysis of adhesions, right hemicolectomy and primary anastomosis and drainage of abdominal abscess abdominal peritoneal lavage and placement of SARAI drain as well as incisional wound VAC system on 09/04/2022. Follow-up computed tomography scan 09/10/2022 revealed loculated and non-loculated perihepatic collections some of which demonstrate mildly thickened almeida with internal foci of air. Hepatic abscesses are not excluded. Persistent dilatation of the small bowel small bowel wall thickening and inflammatory change in the interval colonic anastomotic site. Persistent postoperative ileus and/or obstructive change is not excluded. Adjacent drains in place. Leak is difficult to exclude. Small amount of free air persistent but improved. He did undergo a CT-guided catheter drainage of the liver abscess on 09/11/2022. Abdominal wound dehiscence with stool and air leak through the incision on 09/14/2022. He was returned to the operating room that same day and had undergone an exploratory laparotomy and extensive lysis of adhesions, resection of ilealcolic anastomosis, drainage of perihepatic loculated abscess with rem oval of CT-guided drain, small bowel resection for small bowel necrosis/perforation, placement of ileostomy, abdominal washout with 7 L of normal saline, debridement of abdominal wall midline incision, patient of the Moiz-Hanley in the right anterior lateral hepatic space, placement of Moiz-Hanley drain in the right pelvis, quarter-inch Don drain in the subcutaneous tissue midline incision and placement of Provena incisional wound VAC system. The ileostomy is not fully functional and the patient is possible also on the patient is receiving TPN for nutritional support Episodic fever, rule out underlying ongoing intra-abdominal infection/abscess formation. The SPECT a wound infection. Minimal amount of purulent drainage can be from the inferior edge of the wound. [place] are all in place. The patient is currently on a combination of Zosyn, daptomycin and Eraxis. The repeat cultures were sent and is also still pending for now and the patient remains on broad-spectrum antibiotics. Hemodynamically stable. Severe abdominal sepsis secondary to E. coli, pseudomonas aeruginosa, enterococcus faecium. Remains on daptomycin and Zosyn. Septic shock secondary to above, currently Acute hypoxemic respiratory failure secondary to above currently requiring mechanical ventilation again following second surgery, remains intubated on a mechanical ventilator. Febrile illness secondary to above, consider possibility of intra-abdominal infection/abscess formation Leukocytosis secondary to above, white cell count remains elevated Sinus tachycardia secondary to sepsis, continues to be sinus tachycardia Acute kidney injury, improving and the renal function is improved since yesterday. Renal function continues to improve and the patient is producing adequate amount of urine output Acute lactic acidosis secondary to sepsis, recovered History of colon cancer status post robotic-assisted laparoscopic extended right hemicolectomy on 08/29/2022 Intra-abdominal abscess Abdominal ascites History of sarcoidosis Plan: The patient has been extubated to 2 L of oxygen by nasal cannula NG tube is in place Ileostomy is functional and output is quite high Continue TPN Continue Zosyn, daptomycin and Eraxis monitor the CVP, Continue D5 water at 50 cc/hr Monitor fever pattern Monitor the output from the ileostomy and the drains General surgery follow-up IVF D5 water at the rate of 50 No pressors Discuss with the surgery team regarding the role few of the fransisca and letting the abdominal fluid drained. Consider also repeating a CAT scan of the abdomen. May allow some ice chips. Awaiting follow-up blood cultures Prognosis is guarded We will continue to follow Critical care evaluation, more than 30 minutes. Time with Patient: Greater than 30
[2022-09-18 12:12] LABS: Glucose,Whole Blood 155 mg/dL (70-110)
[2022-09-18] MEDS ORDERED: IOPAMIDOL CONTRAST (ORAL USE) VIAL PO PRN (12:21)
[2022-09-18] MEDS: VASOPRESSIN 20 UNIT in SODIUM CHLORIDE 0.9% 50 ML IV SCH ×2 (12:21→21:02)
--- NOTE | 2022-09-18 12:45 | P.PN ---
Subjective Progress Note Date: 09/18/22 CHIEF COMPLAINT: Pneumoperitoneum, abdominal pain HISTORY OF PRESENT ILLNESS: The patient is a 52-year-old male status post right hemicolectomy for colon cancer 08/29/2022. He was discharged from the hospital without sequelae 08/31/2022 and returned to the hospital 09/03/2022 for pneumoperitoneum. He is status post exploratory laparotomy, lysis of adhesions, evacuation of intra-abdominal abscess, right hemicolectomy for resection of perforated transverse colon diverticulum, 09/04/2022. He then developed acute abdominal pain with suspected bowel perforation. He was taken back to the operating room 09/13/2022 with ileostomy, drainage of perihepatic abscess and extensive lysis of adhesions with small bowel resection. Patient remains in the ICU. Patient extubated yesterday. Patient reports a bdominal pain is less than yesterday. Patient has had increase in his ostomy output about 2 L. He denies any nausea. Has NG tube in place. He is having purulent drainage from the lower incision. Currently afebrile. Last elevated low grade temp yesterday afternoon was 100.4. He remains tachycardic. White count did go up from 17-19 hgb is 8.2 platelets 439 sodium 142 potassium 3.9 creatinine 0.94 magnesium 2.1. Discussed case with critical care service. PHYSICAL EXAM: VITAL SIGNS: Reviewed GENERAL: Well-developed in no acute distress. HEENT: No sclera icterus. Extraocular movements grossly intact. Moist buccal mucosa. Head is atraumatic, normocephalic. No nasal drainage. NECK: Supple without lymphadenopathy. CHEST: Non-labored respirations and equal bilateral excursions. CARDIOVASCULAR: Palpable 2+ radial pulses. ABDOMEN: distended. Ileostomy with stool output. Stoma with sloughing noted. Purulent incisional drainage at the distal aspect of incision. [place] drain noted at the distal and proximal aspect. SARAI drains are serous in color. MUSCULOSKELETAL: No clubbing or cyanosis. NEUROLOGIC: No focal or lateralizing signs. Cranial nerves II through XII g rossly intact. PSYCH: Appropriate affect. Alert and oriented to person, place and time. SKIN: Well perfused. Good skin turgor. ASSESSMENT: 1. Pneumoperitoneum due to perforated diverticulum 2. Tachycardia with fevers consistent with sepsis 3. Acute kidney injury, failure due to severe sepsis 4. Colon cancer status post resection 5. Liver abscess, para hepatic 6. Incisional wound abscess 7. Perforated anastomosis, acute PLAN: -Ordered Computed tomography scan abdomen and pelvis for further evaluation of incisional drainage and leukocytosis -Agree with checking stool for C. diff due to large volume output throughout ostomy -Continue local wound care with daily chlorhexidine cleaning of incision. Change dressing as needed -Continue ICU management -Continue supportive care -Keep patient nothing by mouth -Continue TPN for nutrition support -Continue antibiotics -Continue pain management -DVT prophylaxis subcu heparin Physician Coat Checker note has been reviewed by physician. Signing provider agrees with the documented findings, assessment, and plan of care. Objective - Vital Signs Vital signs: Vital Signs Temp 98.9 F 09/18/22 08:30 Pulse 115 H 09/18/22 12:11 Resp 20 09/18/22 12:00 BP 156/94 09/18/22 12:00 Pulse Ox 98 09/18/22 12:00 FiO2 40 09/17/22 10:41 Intake & Output 09/17/22 09/18/22 09/18/22 18:59 06:59 18:59 Intake Total 5498.166 7717 746 Output Total 3225 4125 1010 Balance -1296.710 -2356 -264 Weight 101 kg 101 kg Intake: IV 530 1656 546 0.9 @ KVO 330 150 ACETAMINOPHEN IV (For NPO 100 ) 1,000 mg In Empty Bag 1 bag @ 400 mls/hr IVPB Q6HR PRN Rx#:[id number] CVP 33 3 Dextrose 5% in Water 1, 550 250 000 ml @ 50 mls/hr IV . Q20H [facility] Rx#:[id number] Fat Emulsion 20% 250 ml 210 In Empty Bag 1 bag @ 21 mls/hr IV WeSa@1800 [facility] Rx#:[id number] Mvi, Adult No.4 with Vit 473 43 K 10 ml Trace (Conc-1Ml/ Dose) 1 ml Potassium Phosphate 9 mmol Sodium Acetate 60 meq Calcium Gluconate 1.5 gm In Amino Acids 5 %/Dextrose 20 % 1,000 ml @ 43 mls/hr IV . BY DURATION [facility] Rx#: [id number] Piperacillin-Tazobactam 3 100 100 .375 gm In Sodium Chloride 0.9% 100 ml @ 25 mls/hr IVPB Q8HR [facility] Rx# :[id number] Sodium Chloride 0.9% 1, 330 30 000 ml @ 75 mls/hr IV . [id number] [facility] Rx#:[id number] arterial line 30 Intake, IV Titration 1398.290 113 200 Amount Anidulafungin 100 mg In 100 100 Sodium Chloride 0.9% 100 ml @ 84 mls/hr IVPB DAILY [facility] Rx#:[id number] DAPTOmycin 500 mg In 100 Sodium Chloride 0.9% 50 ml @ 100 mls/hr IVPB Q24HR [facility] Rx#:[id number] Dextrose 5% in Water 1, 500 50 000 ml @ 50 mls/hr IV . Q20H [facility] Rx#:[id number] Fat Emulsion 20% 250 ml 42 21 In Empty Bag 1 bag @ 21 mls/hr IV WeSa@1800 [facility] Rx#:[id number] Mvi, Adult No.4 with Vit 378 42 K 10 ml Trace (Conc-1Ml/ Dose) 1 ml Potassium Phosphate 6 mmol Sodium Acetate 50 meq Calcium Gluconate 1.5 gm In Amino Acids 5 %/Dextrose 20 % 1,000 ml @ 43 mls/hr IV . BY DURATION [facility] Rx#: [id number] Sodium Ferric Gluconat- 100 100 Sucrose 125 mg In Sodium Chloride 0.9% 100 ml @ 100 mls/hr IVPB DAILY [facility] Rx#:[id number] fentaNYL (PF). 1,000 mcg 100 In Sodium Chloride 0.9% 80 ml @ 0.5 MCG/KG/HR 5. 355 mls/hr IV .[id number] [facility] Rx#:[id number] propofoL 1,000 mg In 78.290 Empty Bag 1 bag @ 15 MCG/ KG/MIN 9.639 mls/hr IV . [id number] [facility] Rx#:[id number] Output: Drainage 15 15 Left Lower Abdomen 10 10 Left Upper Abdomen 5 5 Urine 1460 1135 310 Stool 1650 2975 700 Other 100 Other: Voiding Method Indwelling Catheter Indwelling Catheter Indwelling Catheter ABP, PAP, CO, CI - Last Documented Arterial Blood Pressure 176/96 - Labs CBC & Chem 7: 09/18/22 04:15 09/18/22 04:15 Labs: Abnormal Lab Results - Last 24 Hours (Table) 09/17/22 09/17/22 09/17/22 Range/Units 17:28 20:22 23:51 WBC (3.8-10.6) k/uL RBC (4.30-5.90) m/uL Hgb (13.0-17.5) gm/dL Hct (39.0-53.0) % Neutrophils # (1.3-7.7) k/uL Lymphocytes # (1.0-4.8) k/uL Chloride (98-107) mmol/L BUN (9-20) mg/dL Glucose (74-99) mg/dL POC Glucose (mg/dL) 137 H 143 H 141 H (70-110) mg/dL 09/18/22 09/18/22 09/18/22 Range/Units 04:15 04:15 05:57 WBC 19.2 H (3.8-10.6) k/uL RBC 3.03 L (4.30-5.90) m/uL Hgb 8.2 L (13.0-17.5) gm/dL Hct 25.4 L (39.0-53.0) % Neutrophils # 17.6 H (1.3-7.7) k/uL Lymphocytes # 0.6 L (1.0-4.8) k/uL Chloride 108 H (98-107) mmol/L BUN 22 H (9-20) mg/dL Glucose 138 H (74-99) mg/dL POC Glucose (mg/dL) 140 H (70-110) mg/dL 09/18/22 Range/Units 12:10 WBC (3.8-10.6) k/uL RBC (4.30-5.90) m/uL Hgb (13.0-17.5) gm/dL Hct (39.0-53.0) % Neutrophils # (1.3-7.7) k/uL Lymphocytes # (1.0-4.8) k/uL Chloride (98-107) mmol/L BUN (9-20) mg/dL Glucose (74-99) mg/dL POC Glucose (mg/dL) 155 H (70-110) mg/dL Microbiology - Last 24 Hours (Table) 09/16/22 12:55 Blood Culture - Preliminary Blood 09/16/22 14:01 Gram Stain - Preliminary Sputum
--- NOTE | 2022-09-18 13:04 | P.PN ---
Subjective Progress Note Date: 09/18/22 Principal diagnosis: Intra-abdominal abscess Patient is a 52-year-old male presenting to the hospital with abdominal pain has been diagnosed with an intra-abdominal abscess from perforated diverticulum status post laparotomy and drainage of the abscess. Patient is status post IR drainage of perihepatic abscess completed on 09/11/2022, Patient was taken back to the OR on 09/13/2022 for small bowel necrosis and perforation, the patient is status post exploration laparotomy and lysis of addition resection of the ileocolonic anastomosis and drainage of the perihepatic local area abscess small bowel resection and creation of ileostomy on today's evaluation that is 09/18/2022, the patient fever pattern has improved the patient is afebrile this morning, the patient is breathing comfortably on 2 L nasal cannula, the patient denies any chest pain occasional cough abdominal pain is currently controlled did have the NG no vomiting has been reported and did have output in his ileostomy Objective - Vital Signs Vital signs: Vital Signs Temp 98.9 F 09/18/22 08:30 Pulse 122 H 09/18/22 09:30 Resp 25 H 09/18/22 09:30 BP 143/98 09/18/22 09:30 Pulse Ox 95 09/18/22 09:30 FiO2 40 09/17/22 10:41 Intake & Output 09/17/22 09/18/22 09/18/22 18:59 06:59 18:59 Intake Total 2167.034 7520 386 Output Total 3225 4125 735 Balance -1296.710 -2356 -349 Weight 101 kg Intake: IV 530 1656 386 0.9 @ KVO 330 90 ACETAMINOPHEN IV (For NPO 100 ) 1,000 mg In Empty Bag 1 bag @ 400 mls/hr IVPB Q6HR PRN Rx#:[id number] CVP 33 3 Dextrose 5% in Water 1, 550 150 000 ml @ 50 mls/hr IV . Q20H [facility] Rx#:[id number] Fat Emulsion 20% 250 ml 210 In Empty Bag 1 bag @ 21 mls/hr IV WeSa@1800 [facility] Rx#:[id number] Mvi, Adult No.4 with Vit 473 43 K 10 ml Trace (Conc-1Ml/ Dose) 1 ml Potassium Phosphate 9 mmol Sodium Acetate 60 meq Calcium Gluconate 1.5 gm In Amino Acids 5 %/Dextrose 20 % 1,000 ml @ 43 mls/hr IV . BY DURATION [facility] Rx#: [id number] Piperacillin-Tazobactam 3 100 100 .375 gm In Sodium Chloride 0.9% 100 ml @ 25 mls/hr IVPB Q8HR [facility] Rx# :[id number] Sodium Chloride 0.9% 1, 330 30 000 ml @ 75 mls/hr IV . [id number] [facility] Rx#:[id number] arterial line 30 Intake, IV Titration 1398.290 113 Amount Anidulafungin 100 mg In 100 Sodium Chloride 0.9% 100 ml @ 84 mls/hr IVPB DAILY [facility] Rx#:[id number] DAPTOmycin 500 mg In 100 Sodium Chloride 0.9% 50 ml @ 100 mls/hr IVPB Q24HR [facility] Rx#:[id number] Dextrose 5% in Water 1, 500 50 000 ml @ 50 mls/hr IV . Q20H [facility] Rx#:[id number] Fat Emulsion 20% 250 ml 42 21 In Empty Bag 1 bag @ 21 mls/hr IV WeSa@1800 [facility] Rx#:[id number] Mvi, Adult No.4 with Vit 378 42 K 10 ml Trace (Conc-1Ml/ Dose) 1 ml Potassium Phosphate 6 mmol Sodium Acetate 50 meq Calcium Gluconate 1.5 gm In Amino Acids 5 %/Dextrose 20 % 1,000 ml @ 43 mls/hr IV . BY DURATION [facility] Rx#: [id number] Sodium Ferric Gluconat- 100 Sucrose 125 mg In Sodium Chloride 0.9% 100 ml @ 100 mls/hr IVPB DAILY [facility] Rx#:[id number] fentaNYL (PF). 1,000 mcg 100 In Sodium Chloride 0.9% 80 ml @ 0.5 MCG/KG/HR 5. 355 mls/hr IV .[id number] [facility] Rx#:[id number] propofoL 1,000 mg In 78.290 Empty Bag 1 bag @ 15 MCG/ KG/MIN 9.639 mls/hr IV . [id number] [facility] Rx#:[id number] Output: Drainage 15 15 Left Lower Abdomen 10 10 Left Upper Abdomen 5 5 Urine 1460 1135 235 Stool 1650 2975 500 Other 100 Other: Voiding Method Indwelling Catheter Indwelling Catheter ABP, PAP, CO, CI - Last Documented Arterial Blood Pressure 176/96 - Exam GENERAL DESCRIPTION: A middle-age male lying in bed in no distress RESPIRATORY SYSTEM: Unlabored breathing , decreased breath sounds at bases HEART: S1 S2 regular rate and rhythm , ABDOMEN: Soft , midline incision is intact and did have output in ileostomy EXTREMITIES: No edema feet - Labs CBC & Chem 7: 09/18/22 04:15 09/18/22 04:15 Labs: Abnormal Lab Results - Last 24 Hours (Table) 09/17/22 09/17/22 09/17/22 Range/Units 11:22 11:28 11:43 WBC (3.8-10.6) k/uL RBC (4.30-5.90) m/uL Hgb (13.0-17.5) gm/dL Hct (39.0-53.0) % Neutrophils # (1.3-7.7) k/uL Lymphocytes # (1.0-4.8) k/uL ABG pH 7.47 H (7.35-7.45) ABG HCO3 30 H (21-25) mmol/L ABG Total CO2 31 H (19-24) mmol/L ABG O2 Saturation 98.3 H (94-97) % Chloride (98-107) mmol/L BUN (9-20) mg/dL Glucose (74-99) mg/dL POC Glucose (mg/dL) 125 H 120 H (70-110) mg/dL 09/17/22 09/17/22 09/17/22 Range/Units 17:28 20:22 23:51 WBC (3.8-10.6) k/uL RBC (4.30-5.90) m/uL Hgb (13.0-17.5) gm/dL Hct (39.0-53.0) % Neutrophils # (1.3-7.7) k/uL Lymphocytes # (1.0-4.8) k/uL ABG pH (7.35-7.45) ABG HCO3 (21-25) mmol/L ABG Total CO2 (19-24) mmol/L ABG O2 Saturation (94-97) % Chloride (98-107) mmol/L BUN (9-20) mg/dL Glucose (74-99) mg/dL POC Glucose (mg/dL) 137 H 143 H 141 H (70-110) mg/dL 09/18/22 09/18/22 09/18/22 Range/Units 04:15 04:15 05:57 WBC 19.2 H (3.8-10.6) k/uL RBC 3.03 L (4.30-5.90) m/uL Hgb 8.2 L (13.0-17.5) gm/dL Hct 25.4 L (39.0-53.0) % Neutrophils # 17.6 H (1.3-7.7) k/uL Lymphocytes # 0.6 L (1.0-4.8) k/uL ABG pH (7.35-7.45) ABG HCO3 (21-25) mmol/L ABG Total CO2 (19-24) mmol/L ABG O2 Saturation (94-97) % Chloride 108 H (98-107) mmol/L BUN 22 H (9-20) mg/dL Glucose 138 H (74-99) mg/dL POC Glucose (mg/dL) 140 H (70-110) mg/dL Microbiology - Last 24 Hours (Table) 09/16/22 12:55 Blood Culture - Preliminary Blood 09/16/22 14:01 Gram Stain - Preliminary Sputum Assessment and Plan (1) Intra-abdominal abscess Current Visit: Yes Status: Acute Code(s): K65.1 - PERITONEAL ABSCESS SNOMED Code(s): 63102956 Plan: 1patient with sepsis in this patient who did have a fever tachycardia elevated white count source is intra-abdominal in this patient with evidence of colonic diverticular perforation intra-abdominal abscess status post laparotomy drainage of the abscess and primary anastomosis , cultures growing E. coli Pseudomonas and Enterococcus faecium with sensitivities pending. 2patient with fever and elevated white count concerning for perihepatic abscess, the patient is status post CT-guided drainage culture has been obtained which dual E. coli which is sensitive pathogen 3-patient did have subsequent bowl perforation from small bowel necrosis status post extensive abdominal surgery lysis of adhesion and creation of ileostomy cultures has been obtained and those are currently pending 4-patient did have new fever blood culture had been repeated, sputum is growing gram-negative with ID sensitivities pending, the patient fever has resolved white count is still elevated, patient Will continue with Eraxis Zosyn and daptomycin while waiting for the cultures to finalize Time with Patient: Less than 30
[2022-09-18] MEDS: [UNRECOGNIZED DRUG - REMARK] IV SCH ×12 (14:19→16:32)
--- NOTE | 2022-09-18 15:39 | P.PN ---
Subjective Progress Note Date: 09/18/22 This is a 52 year old male monitored in the intensive care unit postoperative day #4 lysis of adhesions and right hemicolectomy due to bowel perforation. Patient had end to end anastamosis. Has not had bowel movement, had KUB xray today showing multiple dilated small bowel loops possible ileus vs. obstruction. General surgery recommending patient to be NPO at this time. Heart rate remains elevated in the 120s and patient switched to IV lopressor. Remains on IV daptomycin and IV zosyn for positive peritoneal fluid culture with E. Coli, enterococcus and pseudomonas. Blood culture negative so far. Patient remains on D5 water at 100 mls/hr, sodium is slightly improved today down to 146. Continues on TPN, NG tube has been discontinued. Accuchecks switched to Q6h and small dose of levemir HS has been added. SARAI drain in place with serous drainage. Patient febrile today up to 101.9, encouraged to continue with incentive spirometer. Patient has wound vac in place to continuous suction, plan to ambulate around the room and up in the chair today. 09/09/2022 Patient is evaluated today in the ICU resting in bed. Alert x 3. Asking about discharge. Repeat blood culture is pending patient remains on IV antibiotics. White count up to 19.7 today. Patient reports BM yesterday and passing some gas today. Abdomen is more distended. Surgery recommending NG tube today. Patient remains NPO. Midline incisional wound vac in place. Patient remains with fever, using incentive spirometer reaching 1200. Continues on TPN. 09/10/2022 Patient remains in the intensive care unit. Patient continues to be NPO. 3 attempts were made to pass NG tube and were unsuccessful. Patient did have 2 BMs yesterday, abdomen remains significantly distended. Repeat abdominal pelvis CT reveals loculated and nonloculated perihepatic collections some of which demonstrate mildly thickened almeida with internal foci of air. Perihepatic abscesses are not excluded. Persistent dilation of small bowel with small bowel wall thickening and inflammatory change at the enterocolonic anastomotic site. Persistent postoperative ileus and/or obstructive changes not excluded. Adjacent drain is in place. Contrast does not opacify the anastomotic site and therefore leak is difficult to evaluate or exclude. Small amt of free air persists improved from prior study. White count 18.3 today, electrolytes are normalized and blood glucose improved to 115. Patient remains on TPN. Blood culture remains negative. Remains on IV zosyn and IV daptomycin. Temp of 100.4 and remains tachycardic 121, blood pressure stable at 131/94. 09/11/2022 Patient is evaluated today in the intensive care unit. Remains tachycardic and T-Max of 100.7 overnight. Scheduled to undergo drainage and placement of drainage tube to the perihepatic abscess noted on CT imaging with IR today. White count down to 16.0 today. Continues on IV daptoymcin and IV vancomycin. Per nursing did have a small BM overnight. 09/12/2022 Patient evaluated today in the intensive care unit. Underwent CT guided abscess drainage with 100 mls of purulent drainage and also had midline fransisca removed at the top of incision with some purulent drainage. Patients white count is down to 12.8 today. Kidney function stable, sodium 135 today. Patient has been cleared to start diet, having small BMs. Metoprolol will be changed to oral. Fever is improving. Cultures are pending from the abscess and ID is following closely. 09/13/2022 Patient continues to be monitored closely in the intensive care unit. Patient continues with significant tachycardia not improving with metoprolol and continues with abdominal distention. Cardiology was placed on consultation for the tachycardia and patient has been transitioned back to IV lopressor. Wound cultures from the CT guided are showing gram negative bacilli. This morning per nursing the abdomen was more distended and patient had felt a popping sensation with evidence of leaking of brown colored drainage from the surgical incision and the drainage bag. The surgical incision was opened yesterday at the bedside by surgery. Patient was taken for emergent exploratory laporotomy. White count is 17.9 today, sodium 134, potassium 5.0. Kidney function remains stable. Patient has been continued to be NPO no NG tube present. Labs and vitals reviewed. 09/14/2022 Patient is evaluated today he is currently in the intensive care unit intubated and sedated he is on combination of nimbex and propofol. Patient is currently on the mechanical ventilator with 40% FiO2. Patient is also requiring levophed and vasopression. Patient continues on IV daptomycin and IV zosyn. The wound culture shows E.Coli. Patient underwent extensive exploratory laporotomy yesterday with lysis of adhesions, resection of the ileocolic anastamosis due to anastomotic leak, small bowel resection for small bowel necrosis/peforation with placement of ileostomy. Patient had nataliia-stone drain x 2 placed and alpa drain placed. Abdomen was closed with a wound vac. Temp is T-max 100.4 today. Labs reveal white count of 20.1, hgb 9.3, sodium 131, potassium at 6.6 and 5.9, BUN 32, creatinine 2.15, blood glucose 394, calcium 6.4, magnesium 1.4. Patient rece ived IV magnesium, IV gluconate, and IV insulin humulin N. 09/15/2022 Patient is seen in a follow-up continues to be in the ICU with multiple medical consultations following. Patient continues on mechanical ventilation with an FiO2 of 40% and PEEP is 5. Patient is maintained on IV antibiotics in the form of dapto and Zosyn with Infectious Disease Following Closely and Culture Showing E. coli with Multiple Sensitivities. Patient Continues to Have Fevers and White Count Elevated Slightly Trending down to 18 Today. Recent Ileostomy Placed with No Function at This Time and Patient Is Maintained on TPN. Patient Continues with Drains along with a Wound VAC of the Abdomen. Hemoglobin Trending down and upon Stopping Currently Would Recommend Monitoring Closely and Transfuse of 7 or Less. Nephrology Following As Well This Patient's Kidney Functions Worsened Although Appear Better Today. Patient Remains Tachycardic on the Monitor and Troponins Have Been Negative. Recommend Continuing with Accu-Cheks per Protocol and Tight Glycemic Control. 09/16/2022 Patient is seen and evaluated in follow-up today and continues to remain on mechanical ventilation maintained on fentanyl and propofol under sedation. FiO2 is 40% with a PEEP of 5. Hemoglobin critically low at 6.3 and receiving a unit of PRBCs. Would recommend a dose of Lasix after unit of blood. Patient's overall swelling showing some improvement on chest x-ray continues to so show some stable pleural effusions. No bowel activity per nursing staff noted as of yet in the ostomy. Kidney functions are trending down. Patient is continuing to have temps and would recommend repeat blood cultures, sputum culture, urine culture. 09/17/2022 Patient is seen in follow-up this morning continues to be in the ICU on mechan ical ventilation and undergoing sedation holidays. FiO2 is 40% with a PEEP of 5. Per nursing staff patient is following commands on sedation holiday but not quite ready for weaning per pulmonary spray operator. Patient's hemoglobin is improved today at 7.6 status post 1 unit of PRBC yesterday. White count remains slightly elevated at 17.4 and patient continues to have fevers. Infectious disease following closely and repeat blood cultures along with sputum culture have all been sent. Initial culture showing some E. coli and patient is maintained on IV antibiotics in the form of daptomycin, Eraxis, and Zosyn as well awaiting finalized cultures. Patient is noted to have some loose liquid st ool noted in the ostomy and is maintained on TPN. Patient is currently off pressor support as well. Prognosis Remains guarded. 09/18/2022 Patient is seen and evaluated in follow-up today continues to be in the ICU was recently extubated yesterday successfully currently maintained on 3 L via nasal cannula. Patient is off pressor support and blood pressure is mildly hypertensive and patient continues to be tacky. Patient most recent fever was last night of 100.4. Patient is maintained on IV antibiotics with infectious disease following and preliminary sputum cultures repeated show gram-negative an initial wound culture showing E. coli along with Pseudomonas and enterococcus. Patient had copious amounts of drainage from ostomy per nursing staff with general surgery is admitting and repeat CT abdomen is ordered and pending at this time. C. diff sample also being sent which is pending at this time. Patient is maintained on TPN and will continue on strict nothing by mouth per surgery recommendations until Dr. Helton advances. WBC is 19.2 and hemoglobin is 8.2, sodium 142 with a potassium of 3.9 and current creatinine is 0.94. Magnesium is 2.1. Chest x-ray today shows bilateral infiltrates and small pleural effusions are stable. Review of systems: Constitutional: No reports of fatigue, fever, or chills Cardiovascular: No reports of chest pain or palpitations Respiratory: reports of some shortness of breath or cough GI: No reports of nausea, vomiting, or diarrhea : No reports of dysuria or retention Neurovascular: reports of generalized weakness as well as swelling noted throughout All medications have been reviewed Active Medications Albuterol/Ipratropium (Ipratropium-Albuterol 3 Ml Neb) 3 ml INHALATION RT-QID [facility] Last Admin: 09/18/22 12:08 Dose: 3 ml Heparin Sodium (Porcine) (Heparin Sodium,Porcine/Pf 5,000 Unit/0.5 Ml Syringe) 5,000 unit SQ Q12HR [facility] Last Admin: 09/18/22 08:24 Dose: 5,000 unit Hydromorphone HCl (Hydromorphone 1 Mg/Ml 1 Ml Syringe) 1 mg IVP Q3HR PRN PRN Reason: Pain Last Admin: 09/18/22 14:53 Dose: 1 mg Piperacillin Sod/Tazobactam (Sod 3.375 gm/ Sodium Chloride) 100 mls @ 25 mls/hr IVPB Q8HR [facility]; Protocol Last Admin: 09/18/22 08:25 Dose: 25 mls/hr Daptomycin 500 mg/ Sodium (Chloride) 50 mls @ 100 mls/hr IVPB Q24HR [facility]; Protocol Last Admin: 09/18/22 09:32 Dose: 100 mls/hr Fat Emulsion Intravenous 250 (ml/ IV Solution) 250 mls @ 21 mls/hr IV WeSa@1800 [facility] Last Admin: 09/17/22 17:14 Dose: 21 mls/hr Norepinephrine Bitartrate 8 mg (/ Sodium Chloride) 258 mls @ 6.217 mls/hr IV .Q24H [facility]; Protocol Last Titration: 09/16/22 01:53 Dose: 0 mcg/kg/min, 0 mls/hr Vasopressin 20 unit/ Sodium (Chloride) 51 mls @ 4.59 mls/hr IV .Q11H7M [facility]; Protocol Last Admin: 09/18/22 12:21 Dose: Not Given Anidulafungin 100 mg/ Sodium (Chloride) 130 mls @ 84 mls/hr IVPB DAILY [facility]; Protocol Last Admin: 09/18/22 09:31 Dose: 84 mls/hr Acetaminophen 1,000 mg/ IV (Solution) 100 mls @ 400 mls/hr IVPB Q6HR PRN PRN Reason: Fever >101 Stop: 09/26/22 07:41 Dextrose/Water (Dextrose 5%-Water Iv Soln) 1,000 mls @ 50 mls/hr IV .Q20H [facility] Last Admin: 09/18/22 05:08 Dose: 50 mls/hr Parenteral Vitamin Supplement 10 ml/ Zinc/Copper/Manganese/Selenium 1 ml/ Potassium Phosphate 3 mmol/ Sodium Acetate 30 meq/ Calcium Gluconate 1 gm/ Amino Acids/Dextrose 1,037 mls @ 100 mls/hr IV .BY DURATION [facility] Last Admin: 09/18/22 14:19 Dose: 100 mls/hr Potassium Phosphate 3 mmol/Sodium Acetate 30 meq/ Calcium Gluconate 1 gm/ Amino Acids/Dextrose 1,026 mls @ 100 mls/hr IV .BY DURATION [facility] Insulin Aspart (Insulin Aspart (Novolog) 100 Unit/Ml Vial) 3 unit SQ Q6HR [facility] Last Admin: 09/18/22 12:25 Dose: 3 unit Insulin Detemir (Insulin Detemir (Levemir) 100 Unit/Ml Syr) 10 unit SQ BID@0700,2100 [facility] Last Admin: 09/18/22 06:16 Dose: 10 unit Iopamidol (Iopamidol Contrast (Oral Use) Vial) 30 ml PO Q60M PRN PRN Reason: CT Scan Stop: 09/19/22 12:22 Last Admin: 09/18/22 13:06 Dose: 30 ml Metoclopramide HCl (Metoclopramide 5 Mg/Ml 2 Ml Vial) 10 mg IVP Q6H [facility] Last Admin: 09/18/22 12:25 Dose: 10 mg Miscellaneous Information (Potassium Replacement Protocol 1 Each Misc) 1 each MISCELLANE DAILY PRN PRN Reason: Per Protocol Miscellaneous Information (Phosphorus Replacement Protoco 1 Each Misc) 1 each MISCELLANE DAILY PRN; Protocol PRN Reason: Per Protocol Miscellaneous Information (Magnesium Replacement Protocol 1 Each Misc) 1 each MISCELLANE DAILY PRN; Protocol PRN Reason: Per Protocol Naloxone HCl (Naloxone 0.4 Mg/Ml 1 Ml Vial) 0.2 mg IV Q2M PRN PRN Reason: Opioid Reversal Ondansetron HCl (Ondansetron 4 Mg/2 Ml Vial) 4 mg IVP Q8HR PRN PRN Reason: Nausea And Vomiting Last Admin: 09/09/22 17:04 Dose: 4 mg Pantoprazole Sodium (Pantoprazole 40 Mg/10 Ml Vial) 40 mg IV DAILY [facility] Last Admin: 09/18/22 08:25 Dose: 40 mg PHYSICAL EXAMINATION: GENERAL: This is a 52-year-old male who was successfully extubated yesterday maintained on 3 L, awake, alert and oriented 3, Well developed, well nourished. Obese. HEENT: Pupils are round and equally reacting to light. EOMI. No scleral icterus. No conjunctival pallor. Normocephalic, atraumatic. No pharyngeal erythema. No thyromegaly. CARDIOVASCULAR: S1 and S2 muffled. Tachycardic. PULMONARY: Diminished breath sounds bilaterally with some coarse rhonchi and faint crackles noted at the bases ABDOMEN: Soft, Postsurgical drain x 3 present midline. ileostomy Noted with large amounts of output. distended, No bowel sounds. No palpable organomegaly. MUSCULOSKELETAL: No joint swelling or deformity. EXTREMITIES: No cyanosis, clubbing, generalized edema noted of bilateral upper and lower extremities NEUROLOGICAL: Alert and oriented 3, cooperative SKIN: No rashes. Assessment: Sepsis septic shock secondary to perforated diverticulum with evacuation of abscess, lysis of adhesions, right hemicolectomy. Postoperative day #5 lysis of adhesions, resection of ileocolic anastamosis due to anastomotic leak, small bowel resection for small bowel necrosis/perforation and placement of ileostomy. Status post CT guided drainage of abscess on 09/11/22 cultures showing E.Coli. Postoperative ileus Fever and persistent sinus tachycardia due to septic shock, currently off pressor support Colon cancer s/p resection on 08/29/2022 Acute kidney injury secondary to ATN and sepsis Hyperkalemia Hyperglycemia Leukocytosis Hypernatremia resolved Hx hyperlipidemia Sarcoidosis with asthma Nicotine use GI prophylaxis DVT prophylaxis Full Code Plan: Continue IV antibiotics, infectious disease following closely. Patient culture showing E. coli with multiple sensitivities and maintained on Daptomycin along with Zosyn as well as Eraxis Hemoglobin is improved at 8.2 today. Repeat sputum cultures continue to show gram-negative bacilli and WBC is trending up. Patient had a low-grade temp y esterday and has been afebrile today Patient having copious amounts of output from the ostomy and repeat CT abdomen is ordered and pending. Patient was excavated successfully yesterday on 09/17/2022 maintaining oxygen saturations above 90% on 3 L via nasal cannula. Patient to remain strict nothing by mouth per surgery and only be advanced per surgeon Dr. Helton. Cardiology following and patient remains tachycardic. Troponins are negative, component of sepsis with septic shock an is afebrile today Follow up AM labs and chest x-ray ordered Would recommend PT/OT therapy evaluation once more stable and able to get up on the bed per surgery Due to multiple complex medical issues, prognosis is extremely guarded We will continue to follow with surgery during hospitalization. Thank you kindly for this consultation The impression and plan of care has been dictated by Laurie Sesay, Nurse Practitioner as directed. Dr. Jeb MD I have performed a history and examination and MDM of this patient, discussed the same with the dictator, and agree with the dictator's assessment and plan as written ,documented as a scribe. Based on total visit time, I have performed more than 50% of the visit. Objective - Vital Signs Vital signs: Vital Signs Temp 98.9 F 09/18/22 08:30 Pulse 114 H 09/18/22 12:20 Resp 20 09/18/22 12:00 BP 156/94 09/18/22 12:00 Pulse Ox 98 09/18/22 12:00 FiO2 40 09/17/22 10:41 Intake & Output 09/17/22 09/18/22 09/18/22 18:59 06:59 18:59 Intake Total 2283.502 8716 1332 Output Total 3225 4125 1720 Balance -1296.710 -2356 -388 Weight 101 kg 101 kg Intake: IV 530 1656 706 0.9 @ KVO 330 210 ACETAMINOPHEN IV (For NPO 100 ) 1,000 mg In Empty Bag 1 bag @ 400 mls/hr IVPB Q6HR PRN Rx#:[id number] CVP 33 3 Dextrose 5% in Water 1, 550 350 000 ml @ 50 mls/hr IV . Q20H [facility] Rx#:[id number] Fat Emulsion 20% 250 ml 210 In Empty Bag 1 bag @ 21 mls/hr IV WeSa@1800 [facility] Rx#:[id number] Mvi, Adult No.4 with Vit 473 43 K 10 ml Trace (Conc-1Ml/ Dose) 1 ml Potassium Phosphate 9 mmol Sodium Acetate 60 meq Calcium Gluconate 1.5 gm In Amino Acids 5 %/Dextrose 20 % 1,000 ml @ 43 mls/hr IV . BY DURATION [facility] Rx#: [id number] Piperacillin-Tazobactam 3 100 100 .375 gm In Sodium Chloride 0.9% 100 ml @ 25 mls/hr IVPB Q8HR [facility] Rx# :[id number] Sodium Chloride 0.9% 1, 330 30 000 ml @ 75 mls/hr IV . [id number] [facility] Rx#:[id number] arterial line 30 Intake, IV Titration 1398.290 113 626 Amount Anidulafungin 100 mg In 100 100 Sodium Chloride 0.9% 100 ml @ 84 mls/hr IVPB DAILY [facility] Rx#:[id number] DAPTOmycin 500 mg In 100 Sodium Chloride 0.9% 50 ml @ 100 mls/hr IVPB Q24HR [facility] Rx#:[id number] Dextrose 5% in Water 1, 500 50 000 ml @ 50 mls/hr IV . Q20H [facility] Rx#:[id number] Fat Emulsion 20% 250 ml 42 21 In Empty Bag 1 bag @ 21 mls/hr IV WeSa@1800 [facility] Rx#:[id number] Mvi, Adult No.4 with Vit 378 42 K 10 ml Trace (Conc-1Ml/ Dose) 1 ml Potassium Phosphate 6 mmol Sodium Acetate 50 meq Calcium Gluconate 1.5 gm In Amino Acids 5 %/Dextrose 20 % 1,000 ml @ 43 mls/hr IV . BY DURATION [facility] Rx#: [id number] Potassium Phosphate 3 426 mmol Sodium Acetate 30 meq Calcium Gluconate 1 gm In Amino Acids 5 %/ Dextrose 20 % 1,000 ml @ 100 mls/hr IV .BY DURATION [facility] Rx#: [id number] Sodium Ferric Gluconat- 100 100 Sucrose 125 mg In Sodium Chloride 0.9% 100 ml @ 100 mls/hr IVPB DAILY [facility] Rx#:[id number] fentaNYL (PF). 1,000 mcg 100 In Sodium Chloride 0.9% 80 ml @ 0.5 MCG/KG/HR 5. 355 mls/hr IV .[id number] [facility] Rx#:[id number] propofoL 1,000 mg In 78.290 Empty Bag 1 bag @ 15 MCG/ KG/MIN 9.639 mls/hr IV . [id number] [facility] Rx#:[id number] Output: Drainage 15 15 Left Lower Abdomen 10 10 Left Upper Abdomen 5 5 Urine 1460 1135 525 Stool 1650 2975 1195 Other 100 Other: Voiding Method Indwelling Catheter Indwelling Catheter Indwelling Catheter ABP, PAP, CO, CI - Last Documented Arterial Blood Pressure 176/96 - Labs CBC & Chem 7: 09/18/22 04:15 09/18/22 04:15 Labs: Abnormal Lab Results - Last 24 Hours (Table) 09/17/22 09/17/22 09/17/22 Range/Units 17:28 20:22 23:51 WBC (3.8-10.6) k/uL RBC (4.30-5.90) m/uL Hgb (13.0-17.5) gm/dL Hct (39.0-53.0) % Neutrophils # (1.3-7.7) k/uL Lymphocytes # (1.0-4.8) k/uL Chloride (98-107) mmol/L BUN (9-20) mg/dL Glucose (74-99) mg/dL POC Glucose (mg/dL) 137 H 143 H 141 H (70-110) mg/dL 09/18/22 09/18/22 09/18/22 Range/Units 04:15 04:15 05:57 WBC 19.2 H (3.8-10.6) k/uL RBC 3.03 L (4.30-5.90) m/uL Hgb 8.2 L (13.0-17.5) gm/dL Hct 25.4 L (39.0-53.0) % Neutrophils # 17.6 H (1.3-7.7) k/uL Lymphocytes # 0.6 L (1.0-4.8) k/uL Chloride 108 H (98-107) mmol/L BUN 22 H (9-20) mg/dL Glucose 138 H (74-99) mg/dL POC Glucose (mg/dL) 140 H (70-110) mg/dL 09/18/22 Range/Units 12:10 WBC (3.8-10.6) k/uL RBC (4.30-5.90) m/uL Hgb (13.0-17.5) gm/dL Hct (39.0-53.0) % Neutrophils # (1.3-7.7) k/uL Lymphocytes # (1.0-4.8) k/uL Chloride (98-107) mmol/L BUN (9-20) mg/dL Glucose (74-99) mg/dL POC Glucose (mg/dL) 155 H (70-110) mg/dL Microbiology - Last 24 Hours (Table) 09/16/22 14:01 Gram Stain - Preliminary Sputum Sputum Culture - Preliminary Gram Neg Bacilli 09/16/22 12:55 Blood Culture - Preliminary Blood
--- NOTE | 2022-09-18 15:42 | CT ---
EXAMINATION TYPE: CT abdomen pelvis wo con DATE OF EXAM: 09/18/2022 COMPARISON: 09/10/2022 HISTORY: abdominal pain incisional drainage, fever. Oral contrast via NG tube CT DLP: 1190.4 mGycm Examination is significantly limited given the lack of intravenous contrast. GI contrast was administ ered via the patient's NG tube. FINDINGS: LUNG BASES: Basilar atelectasis and/or infiltrates. Pleural based calcifications noted. Small effusio ns seen. LIVER/GB: Perihepatic abscesses are much improved small residual noted. Drainage catheter is noted to be in place. The gallbladder is unremarkable. No space-occupying hepatic lesion. PANCREAS: No pancreatic mass identified. No inflammatory process seen. SPLEEN: No evidence for splenomegaly. No intrasplenic lesions seen. ADRENALS: No adrenal nodules identified. No evidence for thickening. KIDNEYS: No evidence for renal mass. No nephrolithiasis. No hydronephrosis. BOWEL: Midline skin fransisca are seen. There is non organized fluid noted along the undersurface of th e midline incision which may reflect postsurgical seroma. Organized abscess is not appreciated. There has been interval right-sided ostomy. There are distended loops of small bowel measuring up to 5.5 c m. Contrast is not identified within distal small bowel loops and therefore I cannot exclude small mariam wel obstruction or partial obstruction versus ileus. Continued follow-up is advised. Pelvic drainage catheter is redemonstrated. Multiple bowel suture lines noted. Right lower quadrant fluid collection noted measuring 6.0 x 5.6 cm demonstrates adjacent draining. This could reflect abscess versus seroma . Pelvic collection seen previously is smaller in size and currently measures 5.4 x 4.0 cm versus 7.8 x 5.7 cm. Lymph nodes: No evidence for adenopathy greater than 1 cm. Abdominal aorta: Atheromatous changes seen. No evidence for aneurysm. Genital organs: No significant abnormality. Other: There is no evidence for pneumoperitoneum. IMPRESSION: 1. Dilated small bowel with mild small bowel wall edema noted. Findings could reflect postoperative i leus however distal obstruction is difficult to exclude as there is no evidence for contrast within t he distal bowel loops. Correlate clinically and progress studies are advised. 2. There is new right lower quadrant collection as discussed above as well as a collection within the pelvis which is smaller in size. Postoperative seromas versus abscesses. Perihepatic abscesses demon strate significant interval improvement. 3. Fluid along the incision line. This likely reflects postoperative seroma. Organized abscess is not present at this time in this location. 4. Interval right-sided ostomy with multiple bowel anastomotic sutures noted.
[2022-09-18] MEDS: NOREPINEPHRINE 8 MG in SODIUM CHLORIDE 0.9% 250 ML IV SCH (17:19)
--- NOTE | 2022-09-18 17:30 | P.PN ---
Progress Note - Text Progress Note Date: 09/18/22 Patient reevaluated this afternoon on computed tomography scan. I personally and independently reviewed a computed tomography scan with features of no free air. Resolved perihepatic abscess identified with drains appropriate position. Mild dilation of the small bowel consistent with ileus as he has high output ileostomy. Results reviewed the patient with nasogastric tube discontinued. Per discussion with nurse, no moderate drainage from NG tube. Will start clear liquid diet. May need CT-guided drain of 5 cm fluid collection pending repeat CBC and her fevers. Additionally, I reviewed clinical findings with patient and with all questions addressed.
[2022-09-18 18:13] LABS: Glucose,Whole Blood 143 mg/dL (70-110)
[2022-09-18 20:54] LABS: Glucose,Whole Blood 175 mg/dL (70-110)
[2022-09-19] MEDS: METOCLOPRAMIDE 5 MG/ML 2 ML VIAL IVP SCH ×4 (00:19→20:26)
[2022-09-19] MEDS: PIPERACILLIN-TAZOBACTAM 3.375 GM in SODIUM CHLORIDE 0.9% 100 ML IVPB SCH ×4 (00:19→23:46)
[2022-09-19] MEDS: INSULIN ASPART (NovoLOG) 100 UNIT/ML VIAL SQ SCH ×5 (00:19→23:47)
[2022-09-19] MEDS: DEXTROSE 5% IN WATER 1,000 ML IV SCH ×2 (00:20→20:57)
[2022-09-19 00:26] LABS: Glucose,Whole Blood 160 mg/dL (70-110)
[2022-09-19] MEDS: [UNRECOGNIZED DRUG - REMARK] IV SCH ×18 (02:44→22:21)
[2022-09-19] MEDS: HYDROmorphone 1 MG/ML 1 ML SYRINGE IVP PRN ×6 (03:15→23:45)
[2022-09-19 06:12] LABS: Glucose,Whole Blood 184 mg/dL (70-110)
[2022-09-19 06:13] LABS: Ionized Calcium 5.2 mg/dL (4.5-5.3)
[2022-09-19] MEDS: INSULIN DETEMIR (LEVEMIR) 100 UNIT/ML SYR SQ SCH ×2 (06:14→20:57)
[2022-09-19 07:52] LABS: Basophils % (A) 0 %; Eosinophils # (A) 0.4 k/uL (0-0.7); Eosinophils % (A) 3 %; HCT 26.3 % (39.0-53.0); HGB 8.6 gm/dL (13.0-17.5); Hypochromasia Slight; Lymphocytes # (A) 0.7 k/uL (1.0-4.8); Lymphocytes % (A) 5 %; MCH 27.2 pg (25.0-35.0); MCHC 32.6 g/dL (31.0-37.0); MCV 83.4 fL (80.0-100.0); Mean Platelet Volume 9.6; Monocytes # (A) 0.5 k/uL (0-1.0); Monocytes % (A) 4 %; Neutrophils # (A) 12.8 k/uL (1.3-7.7); Neutrophils % (A) 88 %; Platelet Count 441 k/uL (150-450); RBC 3.15 m/uL (4.30-5.90); RDW 15.4 % (11.5-15.5); WBC 14.5 k/uL (3.8-10.6)
[2022-09-19] MEDS: IPRATROPIUM-ALBUTEROL 3 ML NEB INHALATION SCH ×4 (08:39→20:13)
[2022-09-19] MEDS: ANIDULAFUNGIN 100 MG in SODIUM CHLORIDE 0.9% 100 ML IVPB SCH (08:58)
[2022-09-19] MEDS: PANTOPRAZOLE 40 MG/10 ML VIAL IV SCH (08:58)
[2022-09-19] MEDS: HEPARIN SODIUM,PORCINE/PF 5,000 UNIT/0.5 ML SYRINGE SQ SCH ×2 (08:58→20:59)
[2022-09-19] MEDS: DAPTOmycin 500 MG in SODIUM CHLORIDE 0.9% 50 ML IVPB SCH (08:58)
--- NOTE | 2022-09-19 10:07 | P.PN ---
Subjective Progress Note Date: 09/19/22 This is a 52-year-old -[place] male with history of colon cancer, status post right hemicolectomy for cecal colon cancer on 08/29/2022. Patient was discharged uneventfully on Percocet and Motrin for pain control. Patient was readmitted on 09/03/2022, he was mostly admitted with abdominal pain, distention, nausea and vomiting which started a few days prior to his admission. Patient was seen by surgery on consultation, and he was found to have acute pneumoperitoneum. Yesterday, the patient underwent robotic-assisted laparoscopic extensive lysis of adhesions open exploratory laparotomy with right hemicolectomy and primary anastomosis drainage of abdominal abscess abdominal peritoneal lavage, Margarita spent of a SARAI drain in the pelvis and placement of the incisional wound VAC system. I was notified about this patient from Dr. Moeller yesterday, and considering his abdominal sepsis presentation considering his surgical findings considering the patient was not extubated postoperatively, we admitted the patient to the ICU, manage his ventilator overnight, and I'm evaluating the patient today on consultation. Patient had a relatively uneventful night, did not require any pressors, he did receive fluids and he seems to be hemodynamically stable, remains on mechanical ventilation. H is ventilator settings at this point are assist control rate of 18 tidal volume 500 FiO2 40% and PEEP of 5 recent ABG showed a pO2 of 79 pCO2 39 pH of 7.42 patient is on vancomycin and Zosyn for his abdominal sepsis he is on propofol at 65 mcg/kg/m he has good urine output roughly 30-50 mL per hour. Patient has a nasogastric tube applied to suction and he has a wound VAC. He also has a SARAI drain noted. Patient is sedated and calm, however I would recommend a trial of sedation interruption and possibly weaning parameters, if tolerated may consider further weaning and extubation today. Labs today showed relatively normal CBC WBC count is 8.6 hemoglobin is 10.4. Elect lites are normal BUN is 23 creatinine 1.36. Reevaluated today on 09/06/2022, patient remains in the ICU, patient was ext ubated yesterday and he tolerated extubation well over the last 24 hours. He is on 2 L nasal cannula, not in any distress. Continues to have significant nasogastric output. Patient is to be started on TPN today. Doing better than expected overall. Remains on antibiotics for his abdominal sepsis. White count is 11.8 today hemoglobin is 9.6. Elect lites are normal renal profile is normal with a creatinine of 1.14, improving since admission from 2.14 on admission. Patient is compliant with his incentive spirometry and doing a good job with I- S. Reevaluated today on 09/07/2022, patient remains in the ICU, he feels generally weak, denies any shortness of breath, no cough, no wheezing. Continues to have nasogastric tube in place, and he had 1 50 mL of output overnight. Patient on TPN for nutritional support. His sodium was noted to be elevated today, and I recommended switching his IV fluid to D5W at 100 mL per hour. His labs otherwise are unremarkable. Patient is doing well with incentive spirometry, pain is fairly well controlled. Renal profile is normal, WBC count is 11.8 hemoglobin is 9.6 The patient is seen today 09/08/2022 in follow-up in the intensive care unit. Danny jordan is currently resting comfortably in bed. Awake and alert in no acute distress. He is maintaining good O2 saturations in the mid 90s on room air. He is febrile with a temp of 101.9. Tachycardic. Hypertensive. Blood cultures pending. Abdominal x-ray revealed persistent markedly dilated small bowel loops. Peritoneal fluid cultures were positive for E. coli, Pseudomonas aeruginosa, enterococcus faecium. He remains nothing by mouth. He is continued on TPN and lipids. Antibiotics in the form of Zosyn and now daptomycin. Remains on heparin for DVT prophylaxis. He is up ambulating with assistance. The patient is seen today 09/09/2022 in follow-up in the intensive care unit. He is currently resting comfortably in bed. Awake and alert in no acute distress. White count 19.7. Hemoglobin 9.4. Platelets 245. Sodium 141. Potassium 3.9. Bicarb 24. BUN 14. Creatinine 0.78. Glucose 139. He is maintaining good O2 saturations in the mid 90s on room air. Continues with a low-grade fever currently at 100.8. Tachycardic. He is continued on TPN 108 ML's per hour. He has D5W it 100 ML's per hour. 0.9 normal setting at KVO. He is on antibiotics in the form of Zosyn and daptomycin. He is working well with the incentive spirometer. Remains on strict nothing by mouth per surgical services. The patient is seen today 09/10/2022 in follow-up in the intensive care unit. He is currently resting fairly comfortably in bed. Awake and alert in no acute distress. Chest x-ray shows improving bilateral infiltrate and small effusion. He continues to maintain good O2 saturations in the 90s on room air. Some abdominal distention and discomfort. Follow-up computed tomography scan pending. Still have an elevated temperatures up to 102.4 last night. White count 18.3. Hemoglobin 8.8. Sodium 139. Potassium 4.0. Bicarb 24. BUN 14. Creatinine 0.83. He remains on daptomycin and Zosyn. Being nourished with TPN at 108 ML's per hour. Heparin for DVT prophylaxis. The patient is seen today 09/11/2022 in follow-up in the intensive care unit. He is currently resting in bed. Awake and alert in no acute distress. Maintaining good O2 saturations in the 90s on room air. His initial peritoneal fluid cultures were positive for E. coli, pseudomonas aeruginosa, enterococcus faecium. Follow-up blood cultures are pending. He did have issues with abdominal distention. Follow-up computed tomography scan revealed loculated and non-loculated. Hepatic collections some of which demonstrate mildly thickened almeida with internal foci of air.. Hepatic abscesses are not excluded. Persistent dilatation of the small bowel small bowel wall thickening and inflammatory change in the interval colonic anastomotic site. Persistent postoperative ileus and/or obstructive change is not excluded. Adjacent drains in place. Leak is difficult to exclude. Small amount of free air persistent but improved. Chest x-ray reveals stable bilateral lower lobe infiltrate and small effusion. Left-sided PICC line remains in place. White count 16.0. Hemoglobin 9.1. Platelets 270. Sodium 136. Potassium 4.3. Bicarb 24. BUN 15. Creatinine 0.90. Glucose 124. He is continued on daptomycin and Zosyn. Continues to work with the incentive spirometer. Heparin for DVT prophylaxis. Being nourished with TPN at 108 ML's per hour. The patient is seen today 09/12/2022 in follow-up in the intensive care unit. He is currently resting comfortably in bed. Awake and alert in no acute distress. Maintaining O2 saturations in the 90s on room air. Working well with the incentive spirometer. He did undergo a a CT-guided abscess drainage of the liver yesterday with 100 purulent fluid removed. He also had several alfredo removed from his abdominal wound that drained fluid as well. Cultures are pending. A venous. Ovid fluid cultures were positive for E. coli, pseudom onas aeruginosa, enterococcus faecium. White count 12.8. He will been 8.8. Platelets 302. Sodium 135. Potassium 4.8. Bicarb 24. BUN 15. Creatinine 0.79. Glucose 149. He remains on TPN at 180 MLS per hour. Continued on Zosyn and daptomycin. The patient is seen today 09/13/2022 in follow-up in the intensive care unit. He remains awake and alert. Maintaining O2 saturations in the 90s on room air. Slightly febrile at 99.6. He is tachycardic. He has been having issues now with stool and air oozing from his abdominal surgical site. Apparently he had a coughing episode and had some dehiscence in the supraumbilical location. There is also air seen from the abdominal cavity coming to the staple line. Surgical services are following and plans for return to the OR this morning. His body fluid cultures had previously been positive for E. coli, pseudomonas aeruginosa, enterococcus facing him. Wound culture still positive with gram-negative bacilli. He's been continued on daptomycin and Zosyn. White count 17.9. Hemoglobin 9.0. Platelets 458. Sodium 134. Potassium 5.0. Bicarb 21. BUN 16. Creatinine 0.01. Glucose 136. He remains on TPN at 108 ML's per hour. Lipids on Wednesdays and Saturdays. Heparin for DVT prophylaxis. Dilaudid for pain control. The patient is seen today 09/14/2022 in follow-up in the intensive care unit. He did end up going back to surgery yesterday. This is quite extensive and lasting nearly 7 hours. He had undergone an exploratory laparotomy and extensive lysis of adhesions, resection of ilealcolic anastomosis, drainage of perihepatic loculated abscess with removal of CT-guided drain, small bowel resection for small bowel necrosis/perforation, placement of ileostomy, abdominal washout with 7 L of normal saline, debridement of abdominal wall midline incision, patient of the Moiz-Hanley in the right anterior lateral hepatic space, placement of Moiz-Hanley drain in the right pelvis, quarter-inch Don drain in the subcutaneous tissue midline incision and placement of Provena incisional wound VAC system. He was returned to the intensive care unit on the mechanical ventilator. Current settings are assist-control mode of 28, tidal volume 500, FiO2 40% and a PEEP of 5. Morning blood gases revealed a pO2 of 184, pCO2 of 41, pH 7.31 on 50% FiO2. White count 20.1. Hemoglobin 9.3. Platelets 41. Sodium 131. Potassium initially 6.6 corrected to 5.9, bicarb 20, BUN 32. Creatinine 2.15. Glucose 379. Magnesium 1.4. Chest x-ray reveals bibasilar atelectasis. No evidence of pneumothorax. Endotracheal and gastric tube secured in place. Left-sided PICC line in place. Follow-up abdominal wound culture positive for E. coli. He is currently on daptomycin and Zosyn. He is requiring pressor support currently on norepinephrine at 25 mcg/m. Vasopressin at 0.03 units per minute. Propofol at 50 mcg/kg/m. Nimbex at 1.5 mcg/kg/m. 0.9 normal saline at 50 MLS per hour. TPN at 108 ML's per hour and lipids for nourishment. CVP of 10. He is status post 8 L of fluid resuscitation. Currently in a +8.6 L balance. On 09/15/2022, the patient is being seen in follow-up in the intensive care unit. The patient is currently intubated on a mechanical ventilator. The patient is sedated with propofol at 75 mcg/kg/m and the patient is also Nimbex at 1 mcg/kg/m. He is adequately sedated and paralyzed at this point in time. He remains on a mechanical ventilator. Is on assist control mode at the rate of 28, tidal volume of 500, FiO2 of 40% with a PEEP of 5. The patient blood gas from this morning shows a pH of 7.39 with a pCO2 of 41 and pO2 of 106 and this was on FiO2 of 40%. The chest x-ray from today shows some atelectatic changes in left lung base. Otherwise the lungs are well expanded. There is no evidence of pneumothorax. ET tube is in a good location at this point in time. The patient also has a orogastric tube in place. The triple-lumen catheter in the left side is also seen in the subclavian vein. Hemodynamically, the patient is on IV fluids and currently is on 0.9 at the rate of 150 mL an hour. The patient is also on pressors. He was on norepinephrine earlier this morning this was weaned off and discontinued. He remains on vasopressin physiologic dose at 0.03 units per minutes. The patient's urine output is in order of 30-40 mL an hour. That fluid balance has been 1.3 L over the past 24 hours. The viscosity 2.8 with hemoglobin of 7.3 and a drop in hemoglobin has been noted. The patient's platelet count is at 398. BUN is at 27 with a creatinine of 1.3 and a sodium level is at 138. Glucose is at 255. Antibiotic coverage is with a combination of daptomycin and Zosyn. TPN is running at the rate of 108 mL an hour. Most recent cultures from the abdominal wall this consistent with E. coli Pseudomonas and enterococcus. The surgical wound site is currently dry clean and intact. The patient is a SARAI drain in the left lower quadrant and another drain in the le ft upper quadrant. Ileostomy is viable and there is minimal amount of liquidy output collecting in the ileostomy bag. This morning, he is afebrile. He did spike a temperature yesterday. 09/16/2022, the patient remains intubated on a mechanical ventilator and the patient is being seen in follow-up in the intensive care unit. This morning, the patient is still having episodes of fever. He remains in sinus tachycardia. Remains intubated on a mechanical ventilator on a combination of propofol and fentanyl. Nimbex was discontinued yesterday. Propofol is running at a dose of 60 mcg/kg/m and fentanyl is running at 1 mcg/kg/h. He seems to be quite comfortable. He was given a brief sedation holiday yesterday and he was able to follow some simple commands. Nevertheless, he is not fully ready for weaning at this point in time. Earlier this morning, he was on assist control of 28, tidal volume of 500, FiO2 of 40% with a PEEP of 5. His peak airway pressure was 38. His minute ventilation was up to 15 L and his blood gas showed a pH of 7.46 with a pCO2 of 38 and pO2 of 116. Chest x-ray showed atelectatic change in lung bases bilaterally. ET tube remains in a good location. The patient also has a right subclavian triple-lumen catheter in place. Based on those, dropped the rate down to 22 and the dropped the tidal volume to 400. His peak air pressures down to 17. His current minute ventilation is around 11.7 L. His breathing is slightly labored on a mechanical ventilator. Is using some chest and abdominal wall muscles to generate volumes. His ileostomy is still not fully functional. His minimal amount of liquidy output collecting in the back. He does have a bowel sounds and essentially a SARAI drains in his left lower quadrant and left upper quadrant and output is serosanguineous and some the order of 200 mL every 24 hours. He is still spiking temperature and the white cell count still elevated at 16. There has been also had a further drop in hemoglobin down to 6.3. White cell count at 16.3. Platelet counts are as for 33. He is recovering from acute kidney injury. Creatinine is down to 1.4 with a BUN of 26 and the sodium levels of 139. He is on TPN for nutritional support which is running at the rate of 42 mL an hour. He is not receiving any form of enteral feeding for nutritional support. Urine output is adequate for now. Overall fluid balance over the past 24 hours has been +3.3 L. No pressors and the patient was taken off the norepinephrine yesterday. He remains on physiologic dose of vasopressin at 0.03 units an hour. On 09/17/2022, the patient is being seen for a follow-up. The patient remains in the intensive care unit intubated on a mechanical ventilator. On today's evaluation, the patient remains on propofol and is running at a dose of 40 mcg/kg/m and the patient is also on fentanyl running at 1 mcg/kg/h. He is well rested on a mechanical ventilator. His assist control mode at a rate of 22, tidal volume of 500, FiO2 40% with PEEP of 5. Blood gas showed a pH of 7.44 with a pCO2 of 44 and pO2 of 138. The patient had a follow-up chest x-ray this morning that showed small atelectatic changes in lung bases bilaterally. Orotracheal tube is in a good location. No other significant abnormalities noted. Or G-tube is in place and the patient remains on TPN for nutritional support. The patient is hemodynamically stable on no pressors. The patient was given a dose of Lasix yesterday with adequate diuresis. His sodium level is up to 145 and currently is on D5W at the rate of 50 mL an hour. Electrolytes from today shows a sodium level of 145, potassium level of 4.5, BUN is 21 with a creatinine of 1.1. The previous echo 17.4 with a hemoglobin of 7.6 and a platelet count of 433. LFTs are normal. The patient continues to spike temperature. Antibiotic modifications been done and the patient remains on IV Zosyn, daptomycin and Eraxis was also added by infectious disease. Ileostomy is more functional on today's evaluation. His liquidy output in ileostomy bag. The patient also has SARAI drains and he has left lower quadrant on the left upper quadrant and output is serosanguineous at this point in time. He continues to spike temperature. His most recent T-max is 101.5. He remains in sinus tachyca rdia with a heart rate of 120. Urine output is adequate for now. No pressors. On today's evaluation of 09/18/2022, the patient is being seen for a follow-up. Note that the patient was weaned off the mechanical ventilator and was extubated successfully yesterday. He is off propofol. Is off fentanyl. He was given this point his breathing trial and following that the patient was extubated. Th is morning he is on oxygen at 2 L nasal cannula and his calm and comfortable. In terms of his overall hemodynamics, continues to have some sinus tachycardia. Hemodynamically stable. He is on no pressors. He is still spiking episodes of temperature. His ileostomy is functional and the patient had a high output ileostomy and he produced more than 2 L of ileostomy output over the past 24 hours. NG output is minimal at this point in time. Surgical site was inspected and the patient has some purulent drainage from the anterior edge of the surgical wound. All of the alfredo are in place still. Minimal amount of serous drainage at the edges of the wound. Gall[place] in place. The patient has 2 SARAI drains in his upper and left lower quadrants, output is minimal at this point in time. The patient is CURRENTLY ON FOR NUTRITIONAL SUPPORT. THE PATIENT IS COMING COMBINATION OF ZOSYN and daptomycin and Eraxis as broad-spectrum antibiotic coverage. On his blood work, the patient's echoes at 19. Hemoglobin is at 8.2 and platelet count is at 439. BUN is at 22 and a creatinine of 0.9 and sodium levels of 142. His T-max is 100.4, afebrile this morning. He is still on TPN for nutritional support. Is on Levemir insulin 10 units twice a day and is on Dilaudid for pain control. On today's evaluation of 09/19/2022, the patient is being seen in a follow-up. The patient remains extubated and the patient is currently on oxygen at room air. His calm and comfortable. Been afebrile for the past 24 hours. A repeat CAT scan of the abdomen was done yesterday showed a dilated small bowel with mid small bowel wall edema noted. There may be a component of underlying postop ileus. The same time, there is no collections in the right lower quadrant which could be a postop seroma versus abscess. Fluid along the incision line and this is most likely an area of seroma. The patient has an ileostomy which is functioning at this point in time. There is significant amount of output coming out from the ostomy. NG tube has been removed. The patient is still receiving TPN for nutritional support which is running at the rate of 100 mL an hour. The patient was also started on clear liquid diet. His white cell count has dropped down to 14.5, hemoglobin is at 8.6 and a platelet count was 88. Rest of the electrodes are still pending for now. He is hemodynamically stable. Producing adequate amount of urine output. Fluid balance has been -3.6 L over the past 24 hours and the patient is headed towards a negative fluid balance. Antibiotic coverage included a combination of an axis, Zosyn and daptomycin. He is on Levemir insulin for blood sugar control. Dilaudid for pain control. No diuretics. No pressors. The SARAI drains are still in place. The output is serosanguineous. The incision is draining some serous/cloudy material from his inferior edge and the alfredo are still in place Objective - Vital Signs Vital signs: Vital Signs Temp 98.5 F 09/19/22 08:00 Pulse 118 H 09/19/22 09:00 Resp 18 09/19/22 09:00 BP 135/91 09/19/22 09:00 Pulse Ox 96 09/19/22 09:00 FiO2 40 09/17/22 10:41 Intake & Output 09/18/22 09/19/22 09/19/22 18:59 06:59 18:59 Intake Total 2427 1963 714 Output Total 3132 3580 575 Balance -686 -4037 139 Weight 101 kg 101.6 kg 101.6 kg Intake: IV 1201 1963 714 0.9 @ KVO 390 180 30 Anidulafungin 100 mg In 100 Sodium Chloride 0.9% 100 ml @ 84 mls/hr IVPB DAILY [facility] Rx#:[id number] CVP 18 33 9 DAPTOmycin 500 mg In 50 Sodium Chloride 0.9% 50 ml @ 100 mls/hr IVPB Q24HR [facility] Rx#:[id number] Dextrose 5% in Water 1, 650 550 125 000 ml @ 50 mls/hr IV . Q20H [facility]A Rx#:[id number] Mvi, Adult No.4 with Vit 43 K 10 ml Trace (Conc-1Ml/ Dose) 1 ml Potassium Phosphate 9 mmol Sodium Acetate 60 meq Calcium Gluconate 1.5 gm In Amino Acids 5 %/Dextrose 20 % 1,000 ml @ 43 mls/hr IV . BY DURATION VERA Rx#: [id number] Piperacillin-Tazobactam 3 100 100 100 .375 gm In Sodium Chloride 0.9% 100 ml @ 25 mls/hr IVPB Q8HR [facility] Rx# :[id number] Potassium Phosphate 3 1100 300 mmol Sodium Acetate 30 meq Calcium Gluconate 1 gm In Amino Acids 5 %/ Dextrose 20 % 1,000 ml @ 100 mls/hr IV .BY DURATION [facility]A Rx#: [id number] Intake, IV Titration 1226 Amount Anidulafungin 100 mg In 100 Sodium Chloride 0.9% 100 ml @ 84 mls/hr IVPB DAILY VER[facility] Rx#:[id number] Mvi, Adult No.4 with Vit 500 K 10 ml Trace (Conc-1Ml/ Dose) 1 ml Potassium Phosphate 3 mmol Sodium Acetate 30 meq Calcium Gluconate 1 gm In Amino Acids 5 %/Dextrose 20 % 1 ,000 ml @ 100 mls/hr IV . BY DURATION [facility]A Rx#: [id number] Potassium Phosphate 3 526 mmol Sodium Acetate 30 meq Calcium Gluconate 1 gm In Amino Acids 5 %/ Dextrose 20 % 1,000 ml @ 100 mls/hr IV .BY DURATION [facility]A Rx#: [id number] Sodium Ferric Gluconat- 100 Sucrose 125 mg In Sodium Chloride 0.9% 100 ml @ 100 mls/hr IVPB DAILY VERA Rx#:[id number] Output: Gastric Drainage 400 Drainage 10 15 Left Lower Abdomen 0 5 Left Upper Abdomen 10 10 Urine 857 1255 280 Stool 1865 2310 295 Other: Voiding Method Indwelling Catheter Indwelling Catheter ABP, PAP, CO, CI - Last Documented Arterial Blood Pressure 176/96 - Exam GENERAL EXAM: The patient is awake and alert, 52-year-old male patient The patient also has a left subclavian triple-lumen catheter. Patient is currently on a room air oxygen HEAD: Normocephalic. NOSE: Oral endotracheal and gastric tube secured in place. Clear with pink turbinates. THROAT: No erythema or exudates. NECK: Left triple-lumen catheter secured in place. No masses, no JVD. CHEST: No chest wall deformity. LUNGS: Equal air entry with bilateral scattered rhonchi. CVS: S1 and S2 normal with no audible murmur, regular rhythm. ABDOMEN: Midline incision this showing some purulent drainage minutes inferior edge which can be no doubt upon palpation. No direct tenderness. No rebound tenderness. No guarding., [address] SPINE: No scoliosis or deformity SKIN: No rashes CENTRAL NERVOUS SYSTEneurologically, awake and alert and communicating.REMITIES: Right radial arterial line secured in place. There is no peripheral edema. No clubbing, no cyanosis. Peripheral pulses are intact. - Labs CBC & Chem 7: 09/19/22 05:36 09/18/22 04:15 Labs: Abnormal Lab Results - Last 24 Hours (Table) 09/18/22 09/18/22 09/18/22 Range/Units 12:10 18:11 20:52 WBC (3.8-10.6) k/uL RBC (4.30-5.90) m/uL Hgb (13.0-17.5) gm/dL Hct (39.0-53.0) % Neutrophils # (1.3-7.7) k/uL Lymphocytes # (1.0-4.8) k/uL POC Glucose (mg/dL) 155 H 143 H 175 H (70-110) mg/dL 09/19/22 09/19/22 09/19/22 Range/Units 00:25 05:36 06:10 WBC 14.5 H (3.8-10.6) k/uL RBC 3.15 L (4.30-5.90) m/uL Hgb 8.6 L (13.0-17.5) gm/dL Hct 26.3 L (39.0-53.0) % Neutrophils # 12.8 H (1.3-7.7) k/uL Lymphocytes # 0.7 L (1.0-4.8) k/uL POC Glucose (mg/dL) 160 H 184 H (70-110) mg/dL Microbiology - Last 24 Hours (Table) 09/16/22 14:01 Gram Stain - Final Sputum Sputum Culture - Final Escherichia coli 09/16/22 12:55 Blood Culture - Preliminary Blood Assessment and Plan Plan: Acute pneumoperitoneum, secondary to perforated colonic diverticulum and transverse colon. Status post robotic-assisted laparoscopy with extensive lysis of adhesions, right hemicolectomy and primary anastomosis and drainage of abdominal abscess abdominal peritoneal lavage and placement of SARAI drain as well as incisional wound VAC system on 09/04/2022. Follow-up computed tomography sca n 09/10/2022 revealed loculated and non-loculated perihepatic collections some of which demonstrate mildly thickened almeida with internal foci of air. Hepatic abscesses are not excluded. Persistent dilatation of the small bowel small bowel wall thickening and inflammatory change in the interval colonic anastomotic site. Persistent postoperative ileus and/or obstructive change is not excluded. Adjacent drains in place. Leak is difficult to exclude. Small amount of free air persistent but improved. He did undergo a CT-guided catheter drainage of the liver abscess on 09/11/2022. Abdominal wound dehiscence with stool and air leak through the incision on 09/14/2022. He was returned to the operating room that same day and had undergone an exploratory laparotomy and extensive lysis of adhesions, resection of ilealcolic anastomosis, drainage of perihepatic loculated abscess with remova l of CT-guided drain, small bowel resection for small bowel necrosis/perforation, placement of ileostomy, abdominal washout with 7 L of normal saline, debridement of abdominal wall midline incision, patient of the Moiz-Hanley in the right anterior lateral hepatic space, placement of Moiz- Hanley drain in the right pelvis, quarter-inch [place] drain in the subcutaneous tissue midline incision and placement of Provena incisional wound VAC system. The ileostomy is not fully functional and the patient is possible also on the patient is receiving TPN for nutritional support. Repeat CAT scan of the abdomen was done yesterday and it shows some dilatation of the small bowel with small bowel edema. Clinically the patient however does not have any ileus and the ileostomy is functional. NG tube is notable removed. There are some collections within the right lower quadrant. Perihepatic abscesses show significant interval improvement and the rest of the findings may be consistent with either postoperative seroma versus abscesses. The patient also has postoperative see Debbie along the incision and no organizing abscess is seen based on the most recent CAT scan. Episodic fever, rule out underlying ongoing intra-abdominal infection/abscess formation. The SPECT a wound infection. Minimal amount of purulent drainage can be from the inferior edge of the wound. Alfredo are all in place. The patient is currently on a combination of Zosyn, daptomycin and Eraxis. The repeat cultures were sent and is also still pending for now and the patient remains on broad-spectrum antibiotics. Hemodynamically stable. The patient is currently afebrile and the patient has been afebrile over the past 24 hours. The most recent cultures indicated a E. coli in the sputum which is sensitive to Zosyn. Severe abdominal sepsis secondary to E. coli, pseudomonas aeruginosa, enterococcus faecium. Remains on daptomycin and Zosyn. Septic shock secondary to above, currently Acute hypoxemic respiratory failure secondary to above currently requiring mechanical ventilation again following second surgery, remains intubated on a mechanical ventilator. Febrile illness secondary to above, consider possibility of intra-abdominal infection/abscess formation Leukocytosis secondary to above, white cell count remains elevated, improving Sinus tachycardia secondary to sepsis, continues to be sinus tachycardia, improving Acute kidney injury, improving and the renal function is improved since yesterday. Renal function continues to improve and the patient is producing adequate amount of urine output Acute lactic acidosis secondary to sepsis, recovered History of colon cancer status post robotic-assisted laparoscopic extended right hemicolectomy on 08/29/2022 Intra-abdominal abscess, secondary to above Abdominal ascites, secondary to above, please refer to the most recent CAT scan of the abdomen that was done at 09/18/2022 History of sarcoidosis Plan: Patient is currently on room air oxygen and the NG tube was removed Ileostomy is functional and output is quite high Continue TPN Continue Zosyn, daptomycin and Eraxis monitor the CVP, Continue D5 water at 50 cc/hr Monitor fever pattern, currently afebrile Monitor the output from the ileostomy and the drains General surgery follow-up IVF D5 water at the rate of 50 No pressors Discuss with the surgery team regarding the role few of the alfredo and letting the abdominal fluid drained. Consider also repeating a CAT scan of the abdomen. May allow some ice chips. Awaiting follow-up blood cultures, most recent sputum analysis is positive for E. coli Prognosis is guarded We will continue to follow The patient is calm and comfortable in hemodynamically stable and Gen. surgery still on the case. Reviewed the most recent CAT scan of the abdomen. Critical care evaluation, more than 30 minutes.
--- NOTE | 2022-09-19 10:17 | P.PN ---
Subjective Patient is seen in follow-up for acute kidney injury. Renal function near baseline. Nonoliguric. Receiving TPN. Also on D5W. Extubated 09/17/2022. Vital signs are stable. HEENT: NG tube noted. LUNGS: No audible rhonchi or wheezes. HEART: Tachycardic. ABDOMEN: Ileostomy and drain noted. EXTREMITITES: No edema. Objective - Vital Signs Vital signs: Vital Signs Temp 98.5 F 09/19/22 08:00 Pulse 118 H 09/19/22 09:00 Resp 18 09/19/22 09:00 BP 135/91 09/19/22 09:00 Pulse Ox 96 09/19/22 09:00 FiO2 40 09/17/22 10:41 Intake & Output 09/18/22 09/19/22 09/19/22 18:59 06:59 18:59 Intake Total 2427 1963 714 Output Total 3132 3580 575 Balance -705 -5727 139 Weight 101 kg 101.6 kg 101.6 kg Intake: IV 1201 1963 714 0.9 @ KVO 390 180 30 Anidulafungin 100 mg In 100 Sodium Chloride 0.9% 100 ml @ 84 mls/hr IVPB DAILY [facility] Rx#:[id number] CVP 18 33 9 DAPTOmycin 500 mg In 50 Sodium Chloride 0.9% 50 ml @ 100 mls/hr IVPB Q24HR [facility] Rx#:[id number] Dextrose 5% in Water 1, 650 550 125 000 ml @ 50 mls/hr IV . Q20H [facility] Rx#:[id number] Mvi, Adult No.4 with Vit 43 K 10 ml Trace (Conc-1Ml/ Dose) 1 ml Potassium Phosphate 9 mmol Sodium Acetate 60 meq Calcium Gluconate 1.5 gm In Amino Acids 5 %/Dextrose 20 % 1,000 ml @ 43 mls/hr IV . BY DURATION [facility] Rx#: [id number] Piperacillin-Tazobactam 3 100 100 100 .375 gm In Sodium Chloride 0.9% 100 ml @ 25 mls/hr IVPB Q8HR [facility] Rx# :[id number] Potassium Phosphate 3 1100 300 mmol Sodium Acetate 30 meq Calcium Gluconate 1 gm In Amino Acids 5 %/ Dextrose 20 % 1,000 ml @ 100 mls/hr IV .BY DURATION [facility] Rx#: [id number] Intake, IV Titration 1226 Amount Anidulafungin 100 mg In 100 Sodium Chloride 0.9% 100 ml @ 84 mls/hr IVPB DAILY [facility] Rx#:[id number] Mvi, Adult No.4 with Vit 500 K 10 ml Trace (Conc-1Ml/ Dose) 1 ml Potassium Phosphate 3 mmol Sodium Acetate 30 meq Calcium Gluconate 1 gm In Amino Acids 5 %/Dextrose 20 % 1 ,000 ml @ 100 mls/hr IV . BY DURATION [facility] Rx#: [id number] Potassium Phosphate 3 526 mmol Sodium Acetate 30 meq Calcium Gluconate 1 gm In Amino Acids 5 %/ Dextrose 20 % 1,000 ml @ 100 mls/hr IV .BY DURATION [facility] Rx#: [id number] Sodium Ferric Gluconat- 100 Sucrose 125 mg In Sodium Chloride 0.9% 100 ml @ 100 mls/hr IVPB DAILY [facility] Rx#:[id number] Output: Gastric Drainage 400 Drainage 10 15 Left Lower Abdomen 0 5 Left Upper Abdomen 10 10 Urine 857 1255 280 Stool 1865 2310 295 Other: Voiding Method Indwelling Catheter Indwelling Catheter ABP, PAP, CO, CI - Last Documented Arterial Blood Pressure 176/96 - Labs CBC & Chem 7: 09/19/22 05:36 09/18/22 04:15 Labs: Abnormal Lab Results - Last 24 Hours (Table) 09/18/22 09/18/22 09/18/22 Range/Units 12:10 18:11 20:52 WBC (3.8-10.6) k/uL RBC (4.30-5.90) m/uL Hgb (13.0-17.5) gm/dL Hct (39.0-53.0) % Neutrophils # (1.3-7.7) k/uL Lymphocytes # (1.0-4.8) k/uL POC Glucose (mg/dL) 155 H 143 H 175 H (70-110) mg/dL 09/19/22 09/19/22 09/19/22 Range/Units 00:25 05:36 06:10 WBC 14.5 H (3.8-10.6) k/uL RBC 3.15 L (4.30-5.90) m/uL Hgb 8.6 L (13.0-17.5) gm/dL Hct 26.3 L (39.0-53.0) % Neutrophils # 12.8 H (1.3-7.7) k/uL Lymphocytes # 0.7 L (1.0-4.8) k/uL POC Glucose (mg/dL) 160 H 184 H (70-110) mg/dL Microbiology - Last 24 Hours (Table) 09/16/22 14:01 Gram Stain - Final Sputum Sputum Culture - Final Escherichia coli 09/16/22 12:55 Blood Culture - Preliminary Blood Assessment and Plan Plan: Assessment: 1. Acute kidney injury secondary to ATN secondary to severe sepsis. Creatinine peaked at 2.1 this admission and 0.94 yesterday. Nonoliguric. UA fairly benign. No hydronephrosis noted on CAT scan. 2. Pneumoperitoneum status post lysis of lesions, right hemicolectomy and drainage of intra-abdominal abscess on 09/04/2022. Underwent drainage of. Hepatic abscess, lysis of lesions with small bowel resection and ileostomy on 09/13/2022. 3. History of colon cancer. 4. Severe sepsis secondary to abdominal abscess. On antibiotics. ID following. 5. Hypernatremia from lack of free water intake and free water diuresis. I mproved with D5W. 6. Acute blood loss anemia status post blood transfusion. Hemoglobin 8.6 today. Plan: Maintain D5W at 50 mL an hour - will stop if sodium level lower today. Continue to monitor renal function and urine output. Avoid nephrotoxins. TPN per surgery.
[2022-09-19 10:26] LABS: African American GFR (CKD) >90 (>60 ml/min/1.73 sqM); Anion Gap 7 mmol/L; Blood Urea Nitrogen 23 mg/dL (9-20); Calcium 8.1 mg/dL (8.4-10.2); Carbon Dioxide 26 mmol/L (22-30); Chloride 107 mmol/L (98-107); Glucose 149 mg/dL (74-99); Magnesium 1.8 mg/dL (1.6-2.3); Non-African American GFR(CKD) >90 (>60 ml/min/1.73 sqM); Phosphorus 3.2 mg/dL (2.5-4.5); Potassium 3.5 mmol/L (3.5-5.1); Sodium 140 mmol/L (137-145)
[2022-09-19 12:02] LABS: Glucose,Whole Blood 161 mg/dL (70-110)
--- NOTE | 2022-09-19 13:37 | P.PN ---
Subjective Progress Note Date: 09/19/22 CHIEF COMPLAINT: Pneumoperitoneum, abdominal pain HISTORY OF PRESENT ILLNESS: The patient is a 52-year-old male status post right hemicolectomy for colon cancer 08/29/2022. He was discharged from the hospital without sequelae 08/31/2022 and returned to the hospital 09/03/2022 for pneumoperitoneum. He is status post exploratory laparotomy, lysis of adhesions, evacuation of intra-abdominal abscess, right hemicolectomy for resection of perforated transverse colon diverticulum, 09/04/2022. He then developed acute abdominal pain with suspected bowel perforation. He was taken back to the operating room 09/13/2022 with ileostomy, drainage of perihepatic abscess and extensive lysis of adhesions with small bowel resection. Patient remains in the ICU. Patient's abdominal pain is controlled. He denies any nausea or vomiting. He still having high output through his ileostomy. C. diff was negative. Incision drainage is still purulent. SARAI drains with serous output. SARAI drains with minimal with 5 mL on the left lower and 10 mL left upper. Patient had improvement in his fevers. He did have a few low-grade temps of 99. He does remain tachycardic. White count trending down from 19-14 hemoglobin 8.6 platelets 441 creatinine 0.91. NG tube discontinued yesterday. Patient tolerating clear liquids. Only eating a small amount. Abdominal CT dilated small bowel with mild small bowel wall edema noted. Findings could reflect postoperative ileus however distal obstruction at difficult to exclude as there is no evidence for contrast within the distal bowel loops. There is new right lower quadrant collection as discussed above as well as a collection within the pelvis which is similar in size. Postoperative seromas versus abscess. Perihepatic abscesses demonstrates significant impr ovement. Fluid along the incision line this could reflect postoperative seroma. Or denies abscess is not present at this time in this location. Interval right-sided ostomy with multiple bowel anastomotic sutures noted. PHYSICAL EXAM: VITAL SIGNS: Reviewed GENERAL: Well-developed in no acute distress. HEENT: No sclera icterus. Extraocular movements grossly intact. Moist buccal mucosa. Head is atraumatic, normocephalic. No nasal drainage. NECK: Supple without lymphadenopathy. CHEST: Non-labored respirations and equal bilateral excursions. CARDIOVASCULAR: Palpable 2+ radial pulses. ABDOMEN: distended. Ileostomy with stool output. Stoma with sloughing noted. Purulent incisional drainage at the distal aspect of incision. Don drain noted at the distal and proximal aspect. SARAI drains are serous in color. MUSCULOSKELETAL: No clubbing or cyanosis. NEUROLOGIC: No focal or lateralizing signs. Cranial nerves II through XII grossly intact. PSYCH: Appropriate affect. Alert and oriented to person, place and time. SKIN: Well perfused. Good skin turgor. ASSESSMENT: 1. Pneumoperitoneum due to perforated diverticulum 2. Tachycardia with fevers consistent with sepsis 3. Acute kidney injury, failure due to severe sepsis 4. Colon cancer status post resection 5. Liver abscess, para hepatic 6. Incisional wound abscess 7. Perforated anastomosis, acute 8. Postoperative ileus 9. Fluid along the incision may reflect postsurgical seroma 10. Right lower quadrant fluid collection PLAN: -Continue clear liquid diet -Continue to monitor -Continue local wound care with daily chlorhexidine cleaning of incision. Change dressing as needed -Continue ICU management -Continue supportive care -Continue TPN for nutrition support -Continue antibiotics -Continue pain management -DVT prophylaxis subcu heparin [facility] [employer] note has been reviewed by physician. Signing provider agrees with the documented findings, assessment, and plan of care. Objective - Vital Signs Vital signs: Vital Signs Temp 98.5 F 09/19/22 08:00 Pulse 120 H 09/19/22 11:00 Resp 23 09/19/22 11:00 BP 146/93 09/19/22 11:00 Pulse Ox 95 09/19/22 11:00 FiO2 40 09/17/22 10:41 Intake & Output 09/18/22 09/19/22 09/19/22 18:59 06:59 18:59 Intake Total 2427 1963 1030 Output Total 3132 3580 990 Balance -080 -7671 40 Weight 101 kg 101.6 kg 101.6 kg Intake: IV 1201 1963 1030 0.9 @ KVO 390 180 40 Anidulafungin 100 mg In 100 Sodium Chloride 0.9% 100 ml @ 84 mls/hr IVPB DAILY [facility] Rx#:[id number] CVP 18 33 15 DAPTOmycin 500 mg In 50 Sodium Chloride 0.9% 50 ml @ 100 mls/hr IVPB Q24HR [facility] Rx#:[id number] Dextrose 5% in Water 1, 650 550 225 000 ml @ 50 mls/hr IV . Q20H [facility] Rx#:[id number] Mvi, Adult No.4 with Vit 43 K 10 ml Trace (Conc-1Ml/ Dose) 1 ml Potassium Phosphate 9 mmol Sodium Acetate 60 meq Calcium Gluconate 1.5 gm In Amino Acids 5 %/Dextrose 20 % 1,000 ml @ 43 mls/hr IV . BY DURATION [facility] Rx#: [id number] Piperacillin-Tazobactam 3 100 100 100 .375 gm In Sodium Chloride 0.9% 100 ml @ 25 mls/hr IVPB Q8HR [facility] Rx# :[id number] Potassium Phosphate 3 1100 500 mmol Sodium Acetate 30 meq Calcium Gluconate 1 gm In Amino Acids 5 %/ Dextrose 20 % 1,000 ml @ 100 mls/hr IV .BY DURATION [facility] Rx#: [id number] Intake, IV Titration 1226 Amount Anidulafungin 100 mg In 100 Sodium Chloride 0.9% 100 ml @ 84 mls/hr IVPB DAILY [facility] Rx#:[id number] Mvi, Adult No.4 with Vit 500 K 10 ml Trace (Conc-1Ml/ Dose) 1 ml Potassium Phosphate 3 mmol Sodium Acetate 30 meq Calcium Gluconate 1 gm In Amino Acids 5 %/Dextrose 20 % 1 ,000 ml @ 100 mls/hr IV . BY DURATION [facility] Rx#: [id number] Potassium Phosphate 3 526 mmol Sodium Acetate 30 meq Calcium Gluconate 1 gm In Amino Acids 5 %/ Dextrose 20 % 1,000 ml @ 100 mls/hr IV .BY DURATION [facility] Rx#: [id number] Sodium Ferric Gluconat- 100 Sucrose 125 mg In Sodium Chloride 0.9% 100 ml @ 100 mls/hr IVPB DAILY [facility] Rx#:[id number] Output: Gastric Drainage 400 Drainage 10 15 Left Lower Abdomen 0 5 Left Upper Abdomen 10 10 Urine 857 1255 530 Stool 1865 2310 460 Other: Voiding Method Indwelling Catheter Indwelling Catheter Indwelling Catheter ABP, PAP, CO, CI - Last Documented Arterial Blood Pressure 176/96 - Labs CBC & Chem 7: 09/19/22 05:36 09/19/22 09:44 Labs: Abnormal Lab Results - Last 24 Hours (Table) 09/18/22 09/18/22 09/18/22 Range/Units 12:10 18:11 20:52 WBC (3.8-10.6) k/uL RBC (4.30-5.90) m/uL Hgb (13.0-17.5) gm/dL Hct (39.0-53.0) % Neutrophils # (1.3-7.7) k/uL Lymphocytes # (1.0-4.8) k/uL BUN (9-20) mg/dL Glucose (74-99) mg/dL POC Glucose (mg/dL) 155 H 143 H 175 H (70-110) mg/dL Calcium (8.4-10.2) mg/dL Triglycerides (0.00-149.00) mg/dL 09/19/22 09/19/22 09/19/22 Range/Units 00:25 05:36 05:36 WBC 14.5 H (3.8-10.6) k/uL RBC 3.15 L (4.30-5.90) m/uL Hgb 8.6 L (13.0-17.5) gm/dL Hct 26.3 L (39.0-53.0) % Neutrophils # 12.8 H (1.3-7.7) k/uL Lymphocytes # 0.7 L (1.0-4.8) k/uL BUN (9-20) mg/dL Glucose (74-99) mg/dL POC Glucose (mg/dL) 160 H (70-110) mg/dL Calcium (8.4-10.2) mg/dL Triglycerides 200.00 H (0.00-149.00) mg/dL 09/19/22 09/19/22 Range/Units 06:10 09:44 WBC (3.8-10.6) k/uL RBC (4.30-5.90) m/uL Hgb (13.0-17.5) gm/dL Hct (39.0-53.0) % Neutrophils # (1.3-7.7) k/uL Lymphocytes # (1.0-4.8) k/uL BUN 23 H (9-20) mg/dL Glucose 149 H (74-99) mg/dL POC Glucose (mg/dL) 184 H (70-110) mg/dL Calcium 8.1 L (8.4-10.2) mg/dL Triglycerides (0.00-149.00) mg/dL Microbiology - Last 24 Hours (Table) 09/16/22 14:01 Gram Stain - Final Sputum Sputum Culture - Final Escherichia coli 09/16/22 12:55 Blood Culture - Preliminary Blood
[2022-09-19] MEDS: VASOPRESSIN 20 UNIT in SODIUM CHLORIDE 0.9% 50 ML IV SCH ×2 (13:44→20:59)
[2022-09-19 18:09] LABS: Glucose,Whole Blood 179 mg/dL (70-110)
[2022-09-19] MEDS: NOREPINEPHRINE 8 MG in SODIUM CHLORIDE 0.9% 250 ML IV SCH (20:25)
--- NOTE | 2022-09-19 20:53 | P.PN ---
Subjective This is a 52 year old male monitored in the intensive care unit postoperative day #4 lysis of adhesions and right hemicolectomy due to bowel perforation. Patient had end to end anastamosis. Has not had bowel movement, had KUB xray today showing multiple dilated small bowel loops possible ileus vs. obstruction. General surgery recommending patient to be NPO at this time. Heart rate remains elevated in the 120s and patient switched to IV lopressor. Remains on IV daptomycin and IV zosyn for positive peritoneal fluid culture with E. Coli, enterococcus and pseudomonas. Blood culture negative so far. Patient remains on D5 water at 100 mls/hr, sodium is slightly improved today down to 146. Continues on TPN, NG tube has been discontinued. Accuchecks switched to Q6h and small dose of levemir HS has been added. SARAI drain in place with serous drainage. Patient febrile today up to 101.9, encouraged to continue with incentive spirometer. Patient has wound vac in place to continuous suction, plan to ambulate around the room and up in the chair today. 09/09/2022 Patient is evaluated today in the ICU resting in bed. Alert x 3. Asking about discharge. Repeat blood culture is pending patient remains on IV antibiotics. White count up to 19.7 today. Patient reports BM yesterday and passing some gas today. Abdomen is more distended. Surgery recommending NG tube today. Patient remains NPO. Midline incisional wound vac in place. Patient remains with fever, using incentive spirometer reaching 1200. Continues on TPN. 09/10/2022 Patient remains in the intensive care unit. Patient continues to be NPO. 3 attempts were made to pass NG tube and were unsuccessful. Patient did have 2 BMs yesterday, abdomen remains significantly distended. Repeat abdominal pelvis CT reveals loculated and nonloculated perihepatic collections some of which demonst rate mildly thickened almeida with internal foci of air. Perihepatic abscesses are not excluded. Persistent dilation of small bowel with small bowel wall thickening and inflammatory change at the enterocolonic anastomotic site. Persistent postoperative ileus and/or obstructive changes not excluded. Adjacent drain is in place. Contrast does not opacify the anastomotic site and therefore leak is difficult to evaluate or exclude. Small amt of free air persists improved from prior study. White count 18.3 today, electrolytes are normalized and blood glucose improved to 115. Patient remains on TPN. Blood culture remains negative. Remains on IV zosyn and IV daptomycin. Temp of 100.4 and remains tachy cardic 121, blood pressure stable at 131/94. 09/11/2022 Patient is evaluated today in the intensive care unit. Remains tachycardic and T-Max of 100.7 overnight. Scheduled to undergo drainage and placement of drainage tube to the perihepatic abscess noted on CT imaging with IR today. White count down to 16.0 today. Continues on IV daptoymcin and IV vancomycin. Per nursing did have a small BM overnight. 09/12/2022 Patient evaluated today in the intensive care unit. Underwent CT guided abscess drainage with 100 mls of purulent drainage and also had midline fransisca removed at the top of incision with some purulent drainage. Patients white count is down to 12.8 today. Kidney function stable, sodium 135 today. Patient has been cleared to start diet, having small BMs. Metoprolol will be changed to oral. Fever is improving. Cultures are pending from the abscess and ID is following closely. 09/13/2022 Patient continues to be monitored closely in the intensive care unit. Patient continues with significant tachycardia not improving with metoprolol and continues with abdominal distention. Cardiology was placed on consultation for the tachycardia and patient has been transitioned back to IV lopressor. Wound cultures from the CT guided are showing gram negative bacilli. This morning per nursing the abdomen was more distended and patient had felt a popping sensation with evidence of leaking of brown colored drainage from the surgical incision and the drainage bag. The surgical incision was opened yesterday at the bedside by surgery. Patient was taken for emergent exploratory laporotomy. White count is 17.9 today, sodium 134, potassium 5.0. Kidney function remains stable. Patient has been continued to be NPO no NG tube present. Labs and vitals reviewed. 09/14/2022 Patient is evaluated today he is currently in the intensive care unit intubated and sedated he is on combination of nimbex and propofol. Patient is currently on the mechanical ventilator with 40% FiO2. Patient is also requiring levophed and vasopression. Patient continues on IV daptomycin and IV zosyn. The wound culture shows E.Coli. Patient underwent extensive exploratory laporotomy yesterday with lysis of adhesions, resection of the ileocolic anastamosis due to anastomotic leak, small bowel resection for small bowel necrosis/peforation with placement of ileostomy. Patient had nataliia-stone drain x 2 placed and alpa drain placed. Abdomen was closed with a wound vac. Temp is T-max 100.4 today. Labs rev eal white count of 20.1, hgb 9.3, sodium 131, potassium at 6.6 and 5.9, BUN 32, creatinine 2.15, blood glucose 394, calcium 6.4, magnesium 1.4. Patient received IV magnesium, IV gluconate, and IV insulin humulin N. 09/15/2022 Patient is seen in a follow-up continues to be in the ICU with multiple medical consultations following. Patient continues on mechanical ventilation with an FiO2 of 40% and PEEP is 5. Patient is maintained on IV antibiotics in the form of dapto and Zosyn with Infectious Disease Following Closely and Culture Showing E. coli with Multiple Sensitivities. Patient Continues to Have Fevers and White Count Elevated Slightly Trending down to 18 Today. Recent Ileostomy Placed with No Function at This Time and Patient Is Maintained on TPN. Patient Continues with Drains along with a Wound VAC of the Abdomen. Hemoglobin Trending down and upon Stopping Currently Would Recommend Monitoring Closely and Transfuse of 7 or Less. Nephrology Following As Well This Patient's Kidney Functions Worsened Although Appear Better Today. Patient Remains Tachycardic on the Monitor and Troponins Have Been Negative. Recommend Continuing with Accu-Cheks per Protocol and Tight Glycemic Control. 09/16/2022 Patient is seen and evaluated in follow-up today and continues to remain on mechanical ventilation maintained on fentanyl and propofol under sedation. FiO2 is 40% with a PEEP of 5. Hemoglobin critically low at 6.3 and receiving a unit of PRBCs. Would recommend a dose of Lasix after unit of blood. Patient's overall swelling showing some improvement on chest x-ray continues to so show some stable pleural effusions. No bowel activity per nursing staff noted as of yet in the ostomy. Kidney functions are trending down. Patient is continuing to have temps and would recommend repeat blood cultures, sputum culture, urine culture. 09/17/2022 Patient is seen in follow-up this morning continues to be in the ICU on mechanical ventilation and undergoing sedation holidays. FiO2 is 40% with a PEEP of 5. Per nursing staff patient is following commands on sedation holiday but not quite ready for weaning per pulmonary meat and seafood manager. Patient's hemoglobin is improved today at 7.6 status post 1 unit of PRBC yesterday. White count remains slightly elevated at 17.4 and patient continues to have fevers. Infectious disease following closely and repeat blood cultures along with sputum culture have all been sent. Initial culture showing some E. coli and patient is maintained on IV antibiotics in the form of daptomycin, Eraxis, and Zosyn as well awaiting finalized cultures. Patient is noted to have some loose liquid stool noted in the ostomy and is maintained on TPN. Patient is currently off pressor support as well. Prognosis Remains guarded. 09/18/2022 Patient is seen and evaluated in follow-up today continues to be in the ICU was recently extubated yesterday successfully currently maintained on 3 L via nasal cannula. Patient is off pressor support and blood pressure is mildly hypertensive and patient continues to be tacky. Patient most recent fever was last night of 100.4. Patient is maintained on IV antibiotics with infectious disease following and preliminary sputum cultures repeated show gram-negative an initial wound culture showing E. coli along with Pseudomonas and enterococcus. Patient had copious amounts of drainage from ostomy per nursing staff with general surgery is admitting and repeat CT abdomen is ordered and pending at th is time. C. diff sample also being sent which is pending at this time. Patient is maintained on TPN and will continue on strict nothing by mouth per surgery recommendations until Dr. Helton advances. WBC is 19.2 and hemoglobin is 8.2, sodium 142 with a potassium of 3.9 and current creatinine is 0.94. Magnesium is 2.1. Chest x-ray today shows bilateral infiltrates and small pleural effusions are stable. 09/19/2022 Patient admitted to the hospital for perforated colonic diverticulum after recent right hemicolectomy for his colon cancer and discharge home. Patient status post laparoscopic right hemicolectomy and primary anastomosis and drainage of abscess. This has been scanning of the abdominal and yesterday showing right lower quadrant seroma on abscesses and dilated small bowel which could be ileus versus obstruction. The patient with evidence of positive cultures including sputum with E. coli on wound culture with E. coli HER FLUID WITH E. COLI AND PSEUDOMONAS. PATIENT On MULTIPLE ANTIBIOTIC INCLUDING Eraxis, daptomycin and Zosyn Objective - Vital Signs Vital signs: Vital Signs Temp 98.5 F 06/23/23 08:00 Pulse 122 H 09/19/22 16:15 Resp 27 H 09/19/22 15:00 BP 143/91 09/19/22 15:00 Pulse Ox 95 09/19/22 14:30 FiO2 40 09/17/22 10:41 Intake & Output 09/18/22 09/19/22 09/19/22 18:59 06:59 18:59 Intake Total 2427 3000 1630 Output Total 8144 9144 1608 Balance -862 -474 -038 Weight 101 kg 101.6 kg 101.6 kg Intake: IV 1201 1963 1630 0.9 @ KVO 390 180 40 Anidulafungin 100 mg In 100 Sodium Chloride 0.9% 100 ml @ 84 mls/hr IVPB DAILY [facility] Rx#:[id number] CVP 18 33 15 DAPTOmycin 500 mg In 50 Sodium Chloride 0.9% 50 ml @ 100 mls/hr IVPB Q24HR [facility] Rx#:[id number] Dextrose 5% in Water 1, 650 550 425 000 ml @ 50 mls/hr IV . Q20H [facility] Rx#:[id number] Mvi, Adult No.4 with Vit 43 K 10 ml Trace (Conc-1Ml/ Dose) 1 ml Potassium Phosphate 9 mmol Sodium Acetate 60 meq Calcium Gluconate 1.5 gm In Amino Acids 5 %/Dextrose 20 % 1,000 ml @ 43 mls/hr IV . BY DURATION [facility] Rx#: [id number] Piperacillin-Tazobactam 3 100 100 100 .375 gm In Sodium Chloride 0.9% 100 ml @ 25 mls/hr IVPB Q8HR [facility] Rx# :[id number] Potassium Phosphate 3 1100 900 mmol Sodium Acetate 30 meq Calcium Gluconate 1 gm In Amino Acids 5 %/ Dextrose 20 % 1,000 ml @ 100 mls/hr IV .BY DURATION [facility] Rx#: [id number] Intake, IV Titration 1226 1037 Amount Anidulafungin 100 mg In 100 Sodium Chloride 0.9% 100 ml @ 84 mls/hr IVPB DAILY [facility] Rx#:[id number] Mvi, Adult No.4 with Vit 500 1037 K 10 ml Trace (Conc-1Ml/ Dose) 1 ml Potassium Phosphate 3 mmol Sodium Acetate 30 meq Calcium Gluconate 1 gm In Amino Acids 5 %/Dextrose 20 % 1 ,000 ml @ 100 mls/hr IV . BY DURATION [facility] Rx#: [id number] Potassium Phosphate 3 526 mmol Sodium Acetate 30 meq Calcium Gluconate 1 gm In Amino Acids 5 %/ Dextrose 20 % 1,000 ml @ 100 mls/hr IV .BY DURATION [facility] Rx#: [id number] Sodium Ferric Gluconat- 100 Sucrose 125 mg In Sodium Chloride 0.9% 100 ml @ 100 mls/hr IVPB DAILY [facility] Rx#:[id number] Oral 0 Output: Gastric Drainage 400 Drainage 10 15 Left Lower Abdomen 0 5 Left Upper Abdomen 10 10 Urine 857 1255 1005 Stool 1865 2310 910 Other: Voiding Method Indwelling Catheter Indwelling Catheter Indwelling Catheter ABP, PAP, CO, CI - Last Documented Arterial Blood Pressure 176/96 - Exam -GENERAL: The patient is drowsy, not in any acute distress. Well developed, well nourished. HEENT: Pupils are round and equally reacting to light. EOMI. No scleral icterus. No conjunctival pallor. Normocephalic, atraumatic. No pharyngeal erythema. No thyromegaly. CARDIOVASCULAR: S1 and S2 present. No murmurs, rubs, or gallops. PULMONARY: Chest is clear to auscultation, no wheezing . no crackles. -ABDOMEN: Soft, nontender, nondistended, normoactive bowel sounds. No palpable organomegaly. Healing surgical wound was dressed in a Place, Cruz catheter in place MUSCULOSKELETAL: No joint swelling or deformity. EXTREMITIES: No cyanosis, clubbing, or pedal edema. NEUROLOGICAL: Gross neurological examination did not reveal any focal deficits. SKIN: No rashes. no petechiae. - Labs CBC & Chem 7: 09/19/22 05:36 09/19/22 09:44 Labs: Abnormal Lab Results - Last 24 Hours (Table) 09/18/22 09/18/22 09/19/22 Range/Units 18:11 20:52 00:25 WBC (3.8-10.6) k/uL RBC (4.30-5.90) m/uL Hgb (13.0-17.5) gm/dL Hct (39.0-53.0) % Neutrophils # (1.3-7.7) k/uL Lymphocytes # (1.0-4.8) k/uL BUN (9-20) mg/dL Glucose (74-99) mg/dL POC Glucose (mg/dL) 143 H 175 H 160 H (70-110) mg/dL Calcium (8.4-10.2) mg/dL Triglycerides (0.00-149.00) mg/dL 09/19/22 09/19/22 09/19/22 Range/Units 05:36 05:36 06:10 WBC 14.5 H (3.8-10.6) k/uL RBC 3.15 L (4.30-5.90) m/uL Hgb 8.6 L (13.0-17.5) gm/dL Hct 26.3 L (39.0-53.0) % Neutrophils # 12.8 H (1.3-7.7) k/uL Lymphocytes # 0.7 L (1.0-4.8) k/uL BUN (9-20) mg/dL Glucose (74-99) mg/dL POC Glucose (mg/dL) 184 H (70-110) mg/dL Calcium (8.4-10.2) mg/dL Triglycerides 200.00 H (0.00-149.00) mg/dL 09/19/22 09/19/22 Range/Units 09:44 12:01 WBC (3.8-10.6) k/uL RBC (4.30-5.90) m/uL Hgb (13.0-17.5) gm/dL Hct (39.0-53.0) % Neutrophils # (1.3-7.7) k/uL Lymphocytes # (1.0-4.8) k/uL BUN 23 H (9-20) mg/dL Glucose 149 H (74-99) mg/dL POC Glucose (mg/dL) 161 H (70-110) mg/dL Calcium 8.1 L (8.4-10.2) mg/dL Triglycerides (0.00-149.00) mg/dL Microbiology - Last 24 Hours (Table) 09/16/22 14:01 Gram Stain - Final Sputum Sputum Culture - Final Escherichia coli 09/16/22 12:55 Blood Culture - Preliminary Blood Assessment and Plan Assessment: Perforated colonic diverticulum of the transverse: With recent history of laparoscopic hemicolectomy and primary anastomosis for colon cancer Neurologic small bowel could be ileus versus obstruction Right lower quadrant seroma versus abscess Abdominal sepsis secondary to above Anemia Leukocytosis Plan: Continue with antibiotic axis, daptomycin and Zosyn Continue D5W Multiple consultants including critical care pulmonary, infectious disease and surgery team Continue with Levemir insulin Labs and medication were reviewed.. Continue same treatment. Continue with symptomatic treatment. Resume home medication. Monitor labs and vitals. DVT and GI prophylaxis. Further recommendations as per clinical course of the patient DVT prophylaxis: Subcutaneous heparin GI Prophylaxis: Ppi Prognosis is guarded
--- NOTE | 2022-09-19 22:41 | P.PN ---
Subjective Progress Note Date: 09/19/22 Principal diagnosis: Intra-abdominal abscess Patient is a 52-year-old male presenting to the hospital with abdominal pain has been diagnosed with an intra-abdominal abscess from perforated diverticulum status post laparotomy and drainage of the abscess. Patient is status post IR drainage of perihepatic abscess completed on 09/11/2022, Patient was taken back to the OR on 09/13/2022 for small bowel necrosis and perforation, the patient is status post exploration laparotomy and lysis of addition resection of the ileocolonic anastomosis and drainage of the perihepatic local area abscess small bowel resection and creation of ileostomy on today's evaluation that is 09/19/2022 patient did have a low-grade fever of 99.7 last night afebrile this morning the patient is slightly tachycardic currently on 2 L nasal cannula not requiring pressor support denies any chest pain or shortness of the patient comfortable pain is currently controlled no nausea or vomiting Objective - Vital Signs Vital signs: Vital Signs Temp 98.6 F 09/19/22 20:00 Pulse 126 H 09/19/22 22:00 Resp 16 09/19/22 22:00 BP 150/98 09/19/22 22:00 Pulse Ox 96 09/19/22 22:00 FiO2 40 09/17/22 10:41 Intake & Output 09/19/22 09/19/22 09/20/22 06:59 18:59 06:59 Intake Total 3000 3206 600 Output Total 3580 2540 900 Balance -580 666 -300 Weight 101.6 kg 101.6 kg Intake: IV 1963 2180 600 0.9 @ KVO 180 40 Anidulafungin 100 mg In 100 Sodium Chloride 0.9% 100 ml @ 84 mls/hr IVPB DAILY [facility] Rx#:[id number] CVP 33 15 DAPTOmycin 500 mg In 50 Sodium Chloride 0.9% 50 ml @ 100 mls/hr IVPB Q24HR [facility] Rx#:[id number] Dextrose 5% in Water 1, 550 575 200 000 ml @ 50 mls/hr IV . Q20H [facility] Rx#:[id number] Piperacillin-Tazobactam 3 100 200 .375 gm In Sodium Chloride 0.9% 100 ml @ 25 mls/hr IVPB Q8HR [facility] Rx# :[id number] Potassium Phosphate 3 1100 1200 400 mmol Sodium Acetate 30 meq Calcium Gluconate 1 gm In Amino Acids 5 %/ Dextrose 20 % 1,000 ml @ 100 mls/hr IV .BY DURATION [facility] Rx#: [id number] Intake, IV Titration 1037 1026 Amount Mvi, Adult No.4 with Vit 1037 K 10 ml Trace (Conc-1Ml/ Dose) 1 ml Potassium Phosphate 3 mmol Sodium Acetate 30 meq Calcium Gluconate 1 gm In Amino Acids 5 %/Dextrose 20 % 1 ,000 ml @ 100 mls/hr IV . BY DURATION [facility] Rx#: [id number] Potassium Phosphate 3 1026 mmol Sodium Acetate 30 meq Calcium Gluconate 1 gm In Amino Acids 5 %/ Dextrose 20 % 1,000 ml @ 100 mls/hr IV .BY DURATION [facility] Rx#: [id number] Oral 0 0 Output: Drainage 15 Left Lower Abdomen 5 Left Upper Abdomen 10 Urine 1255 1380 500 Stool 2310 1160 400 Other: Voiding Method Indwelling Catheter Indwelling Catheter Indwelling Catheter ABP, PAP, CO, CI - Last Documented Arterial Blood Pressure 176/96 - Exam GENERAL DESCRIPTION: A middle-age male lying in bed in no distress RESPIRATORY SYSTEM: Unlabored breathing , decreased breath sounds at bases HEART: S1 S2 regular rate and rhythm , ABDOMEN: Soft , midline incision is intact and did have output in ileostomy EXTREMITIES: No edema feet - Labs CBC & Chem 7: 09/19/22 05:36 09/19/22 09:44 Labs: Abnormal Lab Results - Last 24 Hours (Table) 09/19/22 09/19/22 09/19/22 Range/Units 00:25 05:36 05:36 WBC 14.5 H (3.8-10.6) k/uL RBC 3.15 L (4.30-5.90) m/uL Hgb 8.6 L (13.0-17.5) gm/dL Hct 26.3 L (39.0-53.0) % Neutrophils # 12.8 H (1.3-7.7) k/uL Lymphocytes # 0.7 L (1.0-4.8) k/uL BUN (9-20) mg/dL Glucose (74-99) mg/dL POC Glucose (mg/dL) 160 H (70-110) mg/dL Calcium (8.4-10.2) mg/dL Triglycerides 200.00 H (0.00-149.00) mg/dL 09/19/22 09/19/22 09/19/22 Range/Units 06:10 09:44 12:01 WBC (3.8-10.6) k/uL RBC (4.30-5.90) m/uL Hgb (13.0-17.5) gm/dL Hct (39.0-53.0) % Neutrophils # (1.3-7.7) k/uL Lymphocytes # (1.0-4.8) k/uL BUN 23 H (9-20) mg/dL Glucose 149 H (74-99) mg/dL POC Glucose (mg/dL) 184 H 161 H (70-110) mg/dL Calcium 8.1 L (8.4-10.2) mg/dL Triglycerides (0.00-149.00) mg/dL 09/19/22 Range/Units 18:06 WBC (3.8-10.6) k/uL RBC (4.30-5.90) m/uL Hgb (13.0-17.5) gm/dL Hct (39.0-53.0) % Neutrophils # (1.3-7.7) k/uL Lymphocytes # (1.0-4.8) k/uL BUN (9-20) mg/dL Glucose (74-99) mg/dL POC Glucose (mg/dL) 179 H (70-110) mg/dL Calcium (8.4-10.2) mg/dL Triglycerides (0.00-149.00) mg/dL Microbiology - Last 24 Hours (Table) 09/16/22 12:55 Blood Culture - Preliminary Blood 09/16/22 14:01 Gram Stain - Final Sputum Sputum Culture - Final Escherichia coli Assessment and Plan (1) Intra-abdominal abscess Current Visit: Yes Status: Acute Code(s): K65.1 - PERITONEAL ABSCESS SNOMED Code(s): 16841472 Plan: 1patient with sepsis in this patient who did have a fever tachycardia elevated white count source is intra-abdominal in this patient with evidence of colonic diverticular perforation intra-abdominal abscess status post laparotomy drainage of the abscess and primary anastomosis , cultures growing E. coli Pseudomonas and Enterococcus faecium with sensitivities pending. 2patient with fever and elevated white count concerning for perihepatic abscess, the patient is status post CT-guided drainage culture has been obtained which dual E. coli which is sensitive pathogen 3-patient did have subsequent bowl perforation from small bowel necrosis status post extensive abdominal surgery lysis of adhesion and creation of ileostomy cultures has been obtained and those are currently pending 4the patient fever has resolved and the white count is trending down down to 14.5 abdominal culture 09/11/22 is growing E. coli sensitive to Zosyn sputum grew the same E. coli that is sensitive to Zosyn, we will continue patient on Zosyn and Eraxis and monitor clinical course closely if no gram-positive daptomycin will be discontinued Time with Patient: Less than 30
[2022-09-20 00:03] LABS: Glucose,Whole Blood 157 mg/dL (70-110)
[2022-09-20] MEDS: METOCLOPRAMIDE 5 MG/ML 2 ML VIAL IVP SCH ×3 (00:05→13:40)
[2022-09-20] MEDS: HYDROmorphone 1 MG/ML 1 ML SYRINGE IVP PRN ×6 (02:41→22:36)
[2022-09-20 04:39] LABS: African American GFR (CKD) >90 (>60 ml/min/1.73 sqM); Anion Gap 8 mmol/L; Blood Urea Nitrogen 21 mg/dL (9-20); Carbon Dioxide 23 mmol/L (22-30); Chloride 104 mmol/L (98-107); Glucose 162 mg/dL (74-99); Magnesium 1.7 mg/dL (1.6-2.3); Non-African American GFR(CKD) >90 (>60 ml/min/1.73 sqM); Phosphorus 3.4 mg/dL (2.5-4.5); Potassium 3.5 mmol/L (3.5-5.1); Sodium 135 mmol/L (137-145)
[2022-09-20] MEDS ORDERED: MAGNESIUM SULFATE-D5W PMX 1 GM in DEXTROSE/WATER 1 100ML.BAG IVPB ONE (04:47)
[2022-09-20] MEDS: POTASSIUM CHLORIDE ER 20 MEQ TAB.ER PO SCH ×2 (04:59→06:02)
[2022-09-20] MEDS: INSULIN DETEMIR (LEVEMIR) 100 UNIT/ML SYR SQ SCH ×2 (06:01→20:29)
[2022-09-20] MEDS: INSULIN ASPART (NovoLOG) 100 UNIT/ML VIAL SQ SCH ×5 (06:01→20:37)
[2022-09-20 06:22] LABS: Glucose,Whole Blood 180 mg/dL (70-110)
[2022-09-20] MEDS ORDERED: [UNRECOGNIZED DRUG - REMARK] IV SCH ×6 (06:30)
[2022-09-20] MEDS: [UNRECOGNIZED DRUG - REMARK] IV SCH ×12 (07:48→17:43)
[2022-09-20 07:53] LABS: Basophils % (A) 0 %; Eosinophils # (A) 0.4 k/uL (0-0.7); Eosinophils % (A) 3 %; HCT 24.8 % (39.0-53.0); HGB 8.1 gm/dL (13.0-17.5); Hypochromasia Slight; Lymphocytes # (A) 0.7 k/uL (1.0-4.8); Lymphocytes % (A) 5 %; MCH 27.4 pg (25.0-35.0); MCHC 32.7 g/dL (31.0-37.0); MCV 83.6 fL (80.0-100.0); Monocytes # (A) 0.5 k/uL (0-1.0); Monocytes % (A) 3 %; Neutrophils # (A) 13.6 k/uL (1.3-7.7); Neutrophils % (A) 88 %; Platelet Count 404 k/uL (150-450); RBC 2.97 m/uL (4.30-5.90); RDW 15.5 % (11.5-15.5); WBC 15.4 k/uL (3.8-10.6)
[2022-09-20] MEDS: PIPERACILLIN-TAZOBACTAM 3.375 GM in SODIUM CHLORIDE 0.9% 100 ML IVPB SCH ×2 (08:28→16:25)
[2022-09-20] MEDS: VASOPRESSIN 20 UNIT in SODIUM CHLORIDE 0.9% 50 ML IV SCH (08:29)
[2022-09-20] MEDS: ANIDULAFUNGIN 100 MG in SODIUM CHLORIDE 0.9% 100 ML IVPB SCH (08:32)
[2022-09-20] MEDS: HEPARIN SODIUM,PORCINE/PF 5,000 UNIT/0.5 ML SYRINGE SQ SCH ×2 (08:35→20:32)
[2022-09-20] MEDS: PANTOPRAZOLE 40 MG/10 ML VIAL IV SCH (08:36)
[2022-09-20] MEDS: SODIUM CHLORIDE 0.9% 1,000 ML IV SCH (09:00)
[2022-09-20] MEDS: IPRATROPIUM-ALBUTEROL 3 ML NEB INHALATION SCH ×4 (09:58→20:46)
--- NOTE | 2022-09-20 10:02 | P.PN ---
Subjective Progress Note Date: 09/20/22 This is a 52-year-old -[place] male with history of colon cancer, status post right hemicolectomy for cecal colon cancer on 08/29/2022. Patient was discharged uneventfully on Percocet and Motrin for pain control. Patient was readmitted on 09/03/2022, he was mostly admitted with abdominal pain, distention, nausea and vomiting which started a few days prior to his admission. Patient was seen by surgery on consultation, and he was found to have acute pneumoperitoneum. Yesterday, the patient underwent robotic-assisted laparoscopic extensive lysis of adhesions open exploratory laparotomy with right hemicolectomy and primary anastomosis drainage of abdominal abscess abdominal peritoneal lavage, Margarita spent of a SARAI drain in the pelvis and placement of the incisional wound VAC system. I was notified about this patient from Dr. Moeller yesterday, and considering his abdominal sepsis presentation considering his surgical findings considering the patient was not extubated postoperatively, we admitted the patient to the ICU, manage his ventilator overnight, and I'm evaluating the patient today on consultation. Patient had a relatively uneventful night, did not require any pressors, he did receive fluids and he seems to be hemodynamically stable, remains on mechanical ventilation. H is ventilator settings at this point are assist control rate of 18 tidal volume 500 FiO2 40% and PEEP of 5 recent ABG showed a pO2 of 79 pCO2 39 pH of 7.42 patient is on vancomycin and Zosyn for his abdominal sepsis he is on propofol at 65 mcg/kg/m he has good urine output roughly 30-50 mL per hour. Patient has a nasogastric tube applied to suction and he has a wound VAC. He also has a SARAI drain noted. Patient is sedated and calm, however I would recommend a trial of sedation interruption and possibly weaning parameters, if tolerated may consider further weaning and extubation today. Labs today showed relatively normal CBC WBC count is 8.6 hemoglobin is 10.4. Elect lites are normal BUN is 23 creatinine 1.36. Reevaluated today on 09/06/2022, patient remains in the ICU, patient was ext ubated yesterday and he tolerated extubation well over the last 24 hours. He is on 2 L nasal cannula, not in any distress. Continues to have significant nasogastric output. Patient is to be started on TPN today. Doing better than expected overall. Remains on antibiotics for his abdominal sepsis. White count is 11.8 today hemoglobin is 9.6. Elect lites are normal renal profile is normal with a creatinine of 1.14, improving since admission from 2.14 on admission. Patient is compliant with his incentive spirometry and doing a good job with I- S. Reevaluated today on 09/07/2022, patient remains in the ICU, he feels generally weak, denies any shortness of breath, no cough, no wheezing. Continues to have nasogastric tube in place, and he had 1 50 mL of output overnight. Patient on TPN for nutritional support. His sodium was noted to be elevated today, and I recommended switching his IV fluid to D5W at 100 mL per hour. His labs otherwise are unremarkable. Patient is doing well with incentive spirometry, pain is fairly well controlled. Renal profile is normal, WBC count is 11.8 hemoglobin is 9.6 The patient is seen today 09/08/2022 in follow-up in the intensive care unit. Danny jordan is currently resting comfortably in bed. Awake and alert in no acute distress. He is maintaining good O2 saturations in the mid 90s on room air. He is febrile with a temp of 101.9. Tachycardic. Hypertensive. Blood cultures pending. Abdominal x-ray revealed persistent markedly dilated small bowel loops. Peritoneal fluid cultures were positive for E. coli, Pseudomonas aeruginosa, enterococcus faecium. He remains nothing by mouth. He is continued on TPN and lipids. Antibiotics in the form of Zosyn and now daptomycin. Remains on heparin for DVT prophylaxis. He is up ambulating with assistance. The patient is seen today 09/09/2022 in follow-up in the intensive care unit. He is currently resting comfortably in bed. Awake and alert in no acute distress. White count 19.7. Hemoglobin 9.4. Platelets 245. Sodium 141. Potassium 3.9. Bicarb 24. BUN 14. Creatinine 0.78. Glucose 139. He is maintaining good O2 saturations in the mid 90s on room air. Continues with a low-grade fever currently at 100.8. Tachycardic. He is continued on TPN 108 ML's per hour. He has D5W it 100 ML's per hour. 0.9 normal setting at KVO. He is on antibiotics in the form of Zosyn and daptomycin. He is working well with the incentive spirometer. Remains on strict nothing by mouth per surgical services. The patient is seen today 09/10/2022 in follow-up in the intensive care unit. He is currently resting fairly comfortably in bed. Awake and alert in no acute distress. Chest x-ray shows improving bilateral infiltrate and small effusion. He continues to maintain good O2 saturations in the 90s on room air. Some abdominal distention and discomfort. Follow-up computed tomography scan pending. Still have an elevated temperatures up to 102.4 last night. White count 18.3. Hemoglobin 8.8. Sodium 139. Potassium 4.0. Bicarb 24. BUN 14. Creatinine 0.83. He remains on daptomycin and Zosyn. Being nourished with TPN at 108 ML's per hour. Heparin for DVT prophylaxis. The patient is seen today 09/11/2022 in follow-up in the intensive care unit. He is currently resting in bed. Awake and alert in no acute distress. Maintaining good O2 saturations in the 90s on room air. His initial peritoneal fluid cultures were positive for E. coli, pseudomonas aeruginosa, enterococcus faecium. Follow-up blood cultures are pending. He did have issues with abdominal distention. Follow-up computed tomography scan revealed loculated and non-loculated. Hepatic collections some of which demonstrate mildly thickened almeida with internal foci of air.. Hepatic abscesses are not excluded. Persistent dilatation of the small bowel small bowel wall thickening and inflammatory change in the interval colonic anastomotic site. Persistent postoperative ileus and/or obstructive change is not excluded. Adjacent drains in place. Leak is difficult to exclude. Small amount of free air persistent but improved. Chest x-ray reveals stable bilateral lower lobe infiltrate and small effusion. Left-sided PICC line remains in place. White count 16.0. Hemoglobin 9.1. Platelets 270. Sodium 136. Potassium 4.3. Bicarb 24. BUN 15. Creatinine 0.90. Glucose 124. He is continued on daptomycin and Zosyn. Continues to work with the incentive spirometer. Heparin for DVT prophylaxis. Being nourished with TPN at 108 ML's per hour. The patient is seen today 09/12/2022 in follow-up in the intensive care unit. He is currently resting comfortably in bed. Awake and alert in no acute distress. Maintaining O2 saturations in the 90s on room air. Working well with the incentive spirometer. He did undergo a a CT-guided abscess drainage of the liver yesterday with 100 purulent fluid removed. He also had several fransisca removed from his abdominal wound that drained fluid as well. Cultures are pending. A venous. Baldwin fluid cultures were positive for E. coli, pseudom onas aeruginosa, enterococcus faecium. White count 12.8. He will been 8.8. Platelets 302. Sodium 135. Potassium 4.8. Bicarb 24. BUN 15. Creatinine 0.79. Glucose 149. He remains on TPN at 180 MLS per hour. Continued on Zosyn and daptomycin. The patient is seen today 09/13/2022 in follow-up in the intensive care unit. He remains awake and alert. Maintaining O2 saturations in the 90s on room air. Slightly febrile at 99.6. He is tachycardic. He has been having issues now with stool and air oozing from his abdominal surgical site. Apparently he had a coughing episode and had some dehiscence in the supraumbilical location. There is also air seen from the abdominal cavity coming to the staple line. Surgical services are following and plans for return to the OR this morning. His body fluid cultures had previously been positive for E. coli, pseudomonas aeruginosa, enterococcus facing him. Wound culture still positive with gram-negative bacilli. He's been continued on daptomycin and Zosyn. White count 17.9. Hemoglobin 9.0. Platelets 458. Sodium 134. Potassium 5.0. Bicarb 21. BUN 16. Creatinine 0.01. Glucose 136. He remains on TPN at 108 ML's per hour. Lipids on Wednesdays and Saturdays. Heparin for DVT prophylaxis. Dilaudid for pain control. The patient is seen today 09/14/2022 in follow-up in the intensive care unit. He did end up going back to surgery yesterday. This is quite extensive and lasting nearly 7 hours. He had undergone an exploratory laparotomy and extensive lysis of adhesions, resection of ilealcolic anastomosis, drainage of perihepatic loculated abscess with removal of CT-guided drain, small bowel resection for small bowel necrosis/perforation, placement of ileostomy, abdominal washout with 7 L of normal saline, debridement of abdominal wall midline incision, patient of the Moiz-Hanley in the right anterior lateral hepatic space, placement of Moiz-Hanley drain in the right pelvis, quarter-inch Don drain in the subcutaneous tissue midline incision and placement of Provena incisional wound VAC system. He was returned to the intensive care unit on the mechanical ventilator. Current settings are assist-control mode of 28, tidal volume 500, FiO2 40% and a PEEP of 5. Morning blood gases revealed a pO2 of 184, pCO2 of 41, pH 7.31 on 50% FiO2. White count 20.1. Hemoglobin 9.3. Platelets 41. Sodium 131. Potassium initially 6.6 corrected to 5.9, bicarb 20, BUN 32. Creatinine 2.15. Glucose 379. Magnesium 1.4. Chest x-ray reveals bibasilar atelectasis. No evidence of pneumothorax. Endotracheal and gastric tube secured in place. Left-sided PICC line in place. Follow-up abdominal wound culture positive for E. coli. He is currently on daptomycin and Zosyn. He is requiring pressor support currently on norepinephrine at 25 mcg/m. Vasopressin at 0.03 units per minute. Propofol at 50 mcg/kg/m. Nimbex at 1.5 mcg/kg/m. 0.9 normal saline at 50 MLS per hour. TPN at 108 ML's per hour and lipids for nourishment. CVP of 10. He is status post 8 L of fluid resuscitation. Currently in a +8.6 L balance. On 09/15/2022, the patient is being seen in follow-up in the intensive care unit. The patient is currently intubated on a mechanical ventilator. The patient is sedated with propofol at 75 mcg/kg/m and the patient is also Nimbex at 1 mcg/kg/m. He is adequately sedated and paralyzed at this point in time. He remains on a mechanical ventilator. Is on assist control mode at the rate of 28, tidal volume of 500, FiO2 of 40% with a PEEP of 5. The patient blood gas from this morning shows a pH of 7.39 with a pCO2 of 41 and pO2 of 106 and this was on FiO2 of 40%. The chest x-ray from today shows some atelectatic changes in left lung base. Otherwise the lungs are well expanded. There is no evidence of pneumothorax. ET tube is in a good location at this point in time. The patient also has a orogastric tube in place. The triple-lumen catheter in the left side is also seen in the subclavian vein. Hemodynamically, the patient is on IV fluids and currently is on 0.9 at the rate of 150 mL an hour. The patient is also on pressors. He was on norepinephrine earlier this morning this was weaned off and discontinued. He remains on vasopressin physiologic dose at 0.03 units per minutes. The patient's urine output is in order of 30-40 mL an hour. That fluid balance has been 1.3 L over the past 24 hours. The viscosity 2.8 with hemoglobin of 7.3 and a drop in hemoglobin has been noted. The patient's platelet count is at 398. BUN is at 27 with a creatinine of 1.3 and a sodium level is at 138. Glucose is at 255. Antibiotic coverage is with a combination of daptomycin and Zosyn. TPN is running at the rate of 108 mL an hour. Most recent cultures from the abdominal wall this consistent with E. coli Pseudomonas and enterococcus. The surgical wound site is currently dry clean and intact. The patient is a SARAI drain in the left lower quadrant and another drain in the le ft upper quadrant. Ileostomy is viable and there is minimal amount of liquidy output collecting in the ileostomy bag. This morning, he is afebrile. He did spike a temperature yesterday. 09/16/2022, the patient remains intubated on a mechanical ventilator and the patient is being seen in follow-up in the intensive care unit. This morning, the patient is still having episodes of fever. He remains in sinus tachycardia. Remains intubated on a mechanical ventilator on a combination of propofol and fentanyl. Nimbex was discontinued yesterday. Propofol is running at a dose of 60 mcg/kg/m and fentanyl is running at 1 mcg/kg/h. He seems to be quite comfortable. He was given a brief sedation holiday yesterday and he was able to follow some simple commands. Nevertheless, he is not fully ready for weaning at this point in time. Earlier this morning, he was on assist control of 28, tidal volume of 500, FiO2 of 40% with a PEEP of 5. His peak airway pressure was 38. His minute ventilation was up to 15 L and his blood gas showed a pH of 7.46 with a pCO2 of 38 and pO2 of 116. Chest x-ray showed atelectatic change in lung bases bilaterally. ET tube remains in a good location. The patient also has a right subclavian triple-lumen catheter in place. Based on those, dropped the rate down to 22 and the dropped the tidal volume to 400. His peak air pressures down to 17. His current minute ventilation is around 11.7 L. His breathing is slightly labored on a mechanical ventilator. Is using some chest and abdominal wall muscles to generate volumes. His ileostomy is still not fully functional. His minimal amount of liquidy output collecting in the back. He does have a bowel sounds and essentially a SARAI drains in his left lower quadrant and left upper quadrant and output is serosanguineous and some the order of 200 mL every 24 hours. He is still spiking temperature and the white cell count still elevated at 16. There has been also had a further drop in hemoglobin down to 6.3. White cell count at 16.3. Platelet counts are as for 33. He is recovering from acute kidney injury. Creatinine is down to 1.4 with a BUN of 26 and the sodium levels of 139. He is on TPN for nutritional support which is running at the rate of 42 mL an hour. He is not receiving any form of enteral feeding for nutritional support. Urine output is adequate for now. Overall fluid balance over the past 24 hours has been +3.3 L. No pressors and the patient was taken off the norepinephrine yesterday. He remains on physiologic dose of vasopressin at 0.03 units an hour. On 09/17/2022, the patient is being seen for a follow-up. The patient remains in the intensive care unit intubated on a mechanical ventilator. On today's evaluation, the patient remains on propofol and is running at a dose of 40 mcg/kg/m and the patient is also on fentanyl running at 1 mcg/kg/h. He is well rested on a mechanical ventilator. His assist control mode at a rate of 22, tidal volume of 500, FiO2 40% with PEEP of 5. Blood gas showed a pH of 7.44 with a pCO2 of 44 and pO2 of 138. The patient had a follow-up chest x-ray this morning that showed small atelectatic changes in lung bases bilaterally. Orotracheal tube is in a good location. No other significant abnormalities noted. Or G-tube is in place and the patient remains on TPN for nutritional support. The patient is hemodynamically stable on no pressors. The patient was given a dose of Lasix yesterday with adequate diuresis. His sodium level is up to 145 and currently is on D5W at the rate of 50 mL an hour. Electrolytes from today shows a sodium level of 145, potassium level of 4.5, BUN is 21 with a creatinine of 1.1. The previous echo 17.4 with a hemoglobin of 7.6 and a platelet count of 433. LFTs are normal. The patient continues to spike temperature. Antibiotic modifications been done and the patient remains on IV Zosyn, daptomycin and Eraxis was also added by infectious disease. Ileostomy is more functional on today's evaluation. His liquidy output in ileostomy bag. The patient also has SARAI drains and he has left lower quadrant on the left upper quadrant and output is serosanguineous at this point in time. He continues to spike temperature. His most recent T-max is 101.5. He remains in sinus tachyca rdia with a heart rate of 120. Urine output is adequate for now. No pressors. On today's evaluation of 09/18/2022, the patient is being seen for a follow-up. Note that the patient was weaned off the mechanical ventilator and was extubated successfully yesterday. He is off propofol. Is off fentanyl. He was given this point his breathing trial and following that the patient was extubated. Th is morning he is on oxygen at 2 L nasal cannula and his calm and comfortable. In terms of his overall hemodynamics, continues to have some sinus tachycardia. Hemodynamically stable. He is on no pressors. He is still spiking episodes of temperature. His ileostomy is functional and the patient had a high output ileostomy and he produced more than 2 L of ileostomy output over the past 24 hours. NG output is minimal at this point in time. Surgical site was inspected and the patient has some purulent drainage from the anterior edge of the surgical wound. All of the fransisca are in place still. Minimal amount of serous drainage at the edges of the wound. [place] in place. The patient has 2 SARAI drains in his upper and left lower quadrants, output is minimal at this point in time. The patient is CURRENTLY ON FOR NUTRITIONAL SUPPORT. THE PATIENT IS COMING COMBINATION OF ZOSYN and daptomycin and Eraxis as broad-spectrum antibiotic coverage. On his blood work, the patient's echoes at 19. Hemoglobin is at 8.2 and platelet count is at 439. BUN is at 22 and a creatinine of 0.9 and sodium levels of 142. His T-max is 100.4, afebrile this morning. He is still on TPN for nutritional support. Is on Levemir insulin 10 units twice a day and is on Dilaudid for pain control. On today's evaluation of 09/19/2022, the patient is being seen in a follow-up. The patient remains extubated and the patient is currently on oxygen at room air. His calm and comfortable. Been afebrile for the past 24 hours. A repeat CAT scan of the abdomen was done yesterday showed a dilated small bowel with mid small bowel wall edema noted. There may be a component of underlying postop ileus. The same time, there is no collections in the right lower quadrant which could be a postop seroma versus abscess. Fluid along the incision line and this is most likely an area of seroma. The patient has an ileostomy which is functioning at this point in time. There is significant amount of output coming out from the ostomy. NG tube has been removed. The patient is still receiving TPN for nutritional support which is running at the rate of 100 mL an hour. The patient was also started on clear liquid diet. His white cell count has dropped down to 14.5, hemoglobin is at 8.6 and a platelet count was 88. Rest of the electrodes are still pending for now. He is hemodynamically stable. Producing adequate amount of urine output. Fluid balance has been -3.6 L over the past 24 hours and the patient is headed towards a negative fluid balance. Antibiotic coverage included a combination of an axis, Zosyn and daptomycin. He is on Levemir insulin for blood sugar control. Dilaudid for pain control. No diuretics. No pressors. The SARAI drains are still in place. The output is serosanguineous. The incision is draining some serous/cloudy material from his inferior edge and the fransisca are still in place On 09/20/2022, the patient is tolerating clear liquid diet. He remains on TPN for nutritional support. Ileostomy output is still high in the order of 800 mL over the past 8 hours. The surgical one-sided essentially unchanged. The patient still having some cloudy purulent at edge and the amount is minimal, and the patient has a SARAI drains in place output being minimal. Patient is currently on room air oxygen. He remains in sinus tachycardia although this seems to be improving slowly. He is afebrile this morning and the patient has not spiked temperature over the past 48 hours. His antibiotic coverage remains on a combination of Zosyn, and Eraxis, and daptomycin. He remains on Levemir insulin 10 units twice a day is also on sliding scale insulin coverage. Blood work from today shows edematous count of 15.4 and a hemoglobin of 8.1, BUN is 21 with a creatinine of 0.8 and sodium levels of 135. Objective - Vital Signs Vital signs: Vital Signs Temp 99.4 F 09/20/22 04:00 Pulse 118 H 09/20/22 06:00 Resp 29 H 09/20/22 08:00 BP 145/95 09/20/22 06:00 Pulse Ox 96 09/20/22 06:00 FiO2 40 09/17/22 10:41 Intake & Output 09/19/22 09/20/22 09/20/22 18:59 06:59 18:59 Intake Total 3206 2100 496 Output Total 2540 2475 800 Balance 172 -089 -022 Weight 101.6 kg 107.7 kg Intake: IV 2180 2050 496 0.9 @ KVO 40 40 Anidulafungin 100 mg In 100 100 Sodium Chloride 0.9% 100 ml @ 84 mls/hr IVPB DAILY [facility] Rx#:[id number] CVP 15 6 DAPTOmycin 500 mg In 50 Sodium Chloride 0.9% 50 ml @ 100 mls/hr IVPB Q24HR [facility] Rx#:[id number] Dextrose 5% in Water 1, 575 650 50 000 ml @ 50 mls/hr IV . Q20H [facility] Rx#:[id number] Piperacillin-Tazobactam 3 200 100 100 .375 gm In Sodium Chloride 0.9% 100 ml @ 25 mls/hr IVPB Q8HR [facility] Rx# :[id number] Potassium Phosphate 3 1200 1300 mmol Sodium Acetate 30 meq Calcium Gluconate 1 gm In Amino Acids 5 %/ Dextrose 20 % 1,000 ml @ 100 mls/hr IV .BY DURATION [facility] Rx#: [id number] Potassium Phosphate 3 200 mmol Sodium Acetate 40 meq Calcium Gluconate 1 gm In Amino Acids 5 %/ Dextrose 20 % 1,000 ml @ 100 mls/hr IV .BY DURATION [facility] [place] Rx#: [id number] Intake, IV Titration 1026 50 Amount Magnesium Sulfate-D5w Pmx 50 1 gm In Dextrose/Water 1 100ml.bag @ 100 mls/hr IVPB ONCE ONE Rx#: [id number] Potassium Phosphate 3 1026 mmol Sodium Acetate 30 meq Calcium Gluconate 1 gm In Amino Acids 5 %/ Dextrose 20 % 1,000 ml @ 100 mls/hr IV .BY DURATION [facility] [place] Rx#: [id number] Oral 0 0 Output: Urine 1380 1475 300 Stool 1160 1000 500 Other: Voiding Method Indwelling Catheter Indwelling Catheter Indwelling Catheter ABP, PAP, CO, CI - Last Documented Arterial Blood Pressure 176/96 - Exam GENERAL EXAM: The patient is awake and alert, 52-year-old male patient The patient also has a left subclavian triple-lumen catheter. Patient is currently on a room air oxygen HEAD: Normocephalic. NOSE: Oral endotracheal and gastric tube secured in place. Clear with pink turbinates. THROAT: No erythema or exudates. NECK: Left triple-lumen catheter secured in place. No masses, no JVD. CHEST: No chest wall deformity. LUNGS: Equal air entry with bilateral scattered rhonchi. CVS: S1 and S2 normal with no audible murmur, regular rhythm. ABDOMEN: Midline incision this showing some purulent drainage minutes inferior edge which can be no doubt upon palpation. No direct tenderness. No rebound tenderness. No guarding., [address] SPINE: No scoliosis or deformity SKIN: No rashes CENTRAL NERVOUS SYSTEneurologically, awake and alert and communicating.REMITIES: Right radial arterial line secured in place. There is no peripheral edema. No clubbing, no cyanosis. Peripheral pulses are intact. - Labs CBC & Chem 7: 09/20/22 04:00 09/20/22 04:00 Labs: Abnormal Lab Results - Last 24 Hours (Table) 09/19/22 09/19/22 09/19/22 Range/Units 05:36 09:44 12:01 WBC (3.8-10.6) k/uL RBC (4.30-5.90) m/uL Hgb (13.0-17.5) gm/dL Hct (39.0-53.0) % Neutrophils # (1.3-7.7) k/uL Lymphocytes # (1.0-4.8) k/uL Sodium (137-145) mmol/L BUN 23 H (9-20) mg/dL Glucose 149 H (74-99) mg/dL POC Glucose (mg/dL) 161 H (70-110) mg/dL Calcium 8.1 L (8.4-10.2) mg/dL Triglycerides 200.00 H (0.00-149.00) mg/dL 09/19/22 09/20/22 09/20/22 Range/Units 18:06 00:02 04:00 WBC (3.8-10.6) k/uL RBC (4.30-5.90) m/uL Hgb (13.0-17.5) gm/dL Hct (39.0-53.0) % Neutrophils # (1.3-7.7) k/uL Lymphocytes # (1.0-4.8) k/uL Sodium 135 L (137-145) mmol/L BUN 21 H (9-20) mg/dL Glucose 162 H (74-99) mg/dL POC Glucose (mg/dL) 179 H 157 H (70-110) mg/dL Calcium 8.0 L (8.4-10.2) mg/dL Triglycerides (0.00-149.00) mg/dL 09/20/22 09/20/22 Range/Units 04:00 06:20 WBC 15.4 H (3.8-10.6) k/uL RBC 2.97 L (4.30-5.90) m/uL Hgb 8.1 L (13.0-17.5) gm/dL Hct 24.8 L (39.0-53.0) % Neutrophils # 13.6 H (1.3-7.7) k/uL Lymphocytes # 0.7 L (1.0-4.8) k/uL Sodium (137-145) mmol/L BUN (9-20) mg/dL Glucose (74-99) mg/dL POC Glucose (mg/dL) 180 H (70-110) mg/dL Calcium (8.4-10.2) mg/dL Triglycerides (0.00-149.00) mg/dL Microbiology - Last 24 Hours (Table) 09/16/22 12:55 Blood Culture - Preliminary Blood 09/16/22 14:01 Gram Stain - Final Sputum Sputum Culture - Final Escherichia coli Assessment and Plan Plan: Acute pneumoperitoneum, secondary to perforated colonic diverticulum and transverse colon. Status post robotic-assisted laparoscopy with extensive lysis of adhesions, right hemicolectomy and primary anastomosis and drainage of abdominal abscess abdominal peritoneal lavage and placement of SARAI drain as well as incisional wound VAC system on 09/04/2022. Follow-up computed tomography scan 09/10/2022 revealed loculated and non-loculated perihepatic collections some of which demonstrate mildly thickened almeida with internal foci of air. Hepatic abscesses are not excluded. Persistent dilatation of the small bowel small bowel wall thickening and inflammatory change in the interval colonic anastomotic site. He did undergo a CT-guided catheter drainage of the liver abscess on 09/11/2022. Abdominal wound dehiscence with stool and air leak through the incision on 09/14/2022. He was returned to the operating room that same day and had undergone an exploratory laparotomy and extensive lysis of adhesions, resection of ilealcolic anastomosis, drainage of perihepatic loculated abscess with remova l of CT-guided drain, small bowel resection for small bowel necrosis/perforation, placement of ileostomy, abdominal washout with 7 L of normal saline, debridement of abdominal wall midline incision, patient of the Moiz-Han[place] in the right anterior lateral hepatic space, placement of Moiz- [place] drain in the right pelvis, quarter-inch Don drain in the subcutaneous tissue midline incision and placement of Provena incisional wound VAC system. The ileostomy is fully functional and the patient is receiving TPN for nutritional support. Repeat CAT scan of the abdomen was done yesterday and it shows some dilatation of the small bowel with small bowel edema. . NG tube is notable removed. There are some collections within the right lower quadrant. Perihepatic abscesses show significant interval improvement and the rest of the findings may be consistent with either postoperative seroma versus abscesses. The patient also has postoperative seroma along the incision and no organizing a bscess is seen based on the most recent CAT scan. Possibility of wound infection cannot be completely ruled out and the patient continues to have some purulent drainage from the wound edge. Episodic fever, rule out underlying ongoing intra-abdominal infection/abscess formation. The CAT scan of the abdomen was repeated on 09/18/2022 and the findings were essentially reviewed and noted. Minimal amount of purulent drainage can be from the inferior edge of the wound. [place] are all in place. The patient is currently on a combination of Zosyn, daptomycin and Eraxis. The repeat cultures were sent and is also still pending for now and the patient remains on broad-spectrum antibiotics. Hemodynamically stable. The patient is currently afebrile and the patient has been afebrile over the past 24 hours. The most recent cultures indicated a E. coli in the sputum which is sensitive to Zosyn. The patient remains afebrile. Cultures will be obtained from the wound drainage. Severe abdominal sepsis secondary to E. coli, pseudomonas aeruginosa, enterococcus faecium. Remains on daptomycin and Zosyn. Septic shock secondary to above, recovered and the patient is normotensive Acute hypoxemic respiratory failure secondary to above currently requiring mechanical ventilation , extubated and patient is currently on room air oxygen Leukocytosis secondary to above, white cell count remains elevated, improving Sinus tachycardia secondary to sepsis, continues to be sinus tachycardia, improving Acute kidney injury, improving and the renal function is improved since yesterday. Renal function continues to improve and the patient is producing adequate amount of urine output Acute lactic acidosis secondary to sepsis, recovered History of colon cancer status post robotic-assisted laparoscopic extended right hemicolectomy on 08/29/2022 Intra-abdominal abscess, secondary to above Abdominal ascites, secondary to above, please refer to the most recent CAT scan of the abdomen that was done at 09/18/2022 History of sarcoidosis Plan: Keep the patient on room air Incentive spirometer Ileostomy is functional and output is quite high Continue TPN Continue Zosyn, daptomycin and Eraxis Obtain cultures from the surgical 1 satellite project site monitor the CVP, Change IV fluids to KVO Monitor fever pattern, currently afebrile Monitor the output from the ileostomy and the drains General surgery follow-up No pressors Advance diet as tolerated Prognosis is guarded We will continue to follow
[2022-09-20] MEDS: DAPTOmycin 500 MG in SODIUM CHLORIDE 0.9% 50 ML IVPB SCH (10:13)
[2022-09-20 11:56] LABS: Glucose,Whole Blood 149 mg/dL (70-110)
[2022-09-20] MEDS ORDERED: DEXTROSE 50% SYRINGE 50 ML IVP PRN ×2 (14:50)
[2022-09-20] MEDS: NOREPINEPHRINE 8 MG in SODIUM CHLORIDE 0.9% 250 ML IV SCH (14:52)
--- NOTE | 2022-09-20 15:35 | P.PN ---
Subjective Progress Note Date: 09/20/22 CHIEF COMPLAINT: Pneumoperitoneum, abdominal pain HISTORY OF PRESENT ILLNESS: The patient is a 52-year-old male status post right hemicolectomy for colon cancer 08/29/2022. He was discharged from the hospital without sequelae 08/31/2022 and returned to the hospital 09/03/2022 for pneumoperitoneum. He is status post exploratory laparotomy, lysis of adhesions, evacuation of intra-abdominal abscess, right hemicolectomy for resection of perforated transverse colon diverticulum, 09/04/2022. He then developed acute abdominal pain with suspected bowel perforation. He was taken back to the operating room 09/13/2022 with ileostomy, drainage of perihepatic abscess and extensive lysis of adhesions with small bowel resection. He is tolerating liquid diet. He is passing flatus. No nausea or vomiting. at bedside. He is clinically improving. No further high fevers. ROS: No new chest pain. T-max 99.5F PHYSICAL EXAM: VITAL SIGNS: Reviewed CONSTITUTIONAL: Well developed and in no acute distress. EYES: Conjuctivae without sclera icterus. Extraocular movements grossly intact. HEAD, EARS, NOSE, THROAT: Moist buccal mucosa. Head is atraumatic, normocephalic. Hears conversational speech. RESPIRATORY:abored breathing CARDIOVASCULAR: Palpable 2+ radial pulses. Tachycardic. ABDOMEN: Ileostomy functioning and beefy red. Mucosal slough off and viable. Midline incision with decreased purulent drainage. MUSCULOSKELETAL: No gross deformity of the lower extremities noted. No clubbi ng. No cyanosis. SKIN: Good skin turgor. Well perfused. NEUROLOGIC: Cranial nerves II through XII grossly intact. No focal or lateralizing signs. PSYCH: Appropriate affect. Alert and oriented to person, place and time. CLINICAL LABS: Reviewed. WBC trending up from 14.5 to 15.4 STUDIES: Computed tomography scan independently reviewed demonstrates fluid collection of the right lower quadrant. ASSESSMENT: 1. Pneumoperitoneum due to perforated diverticulum 2. Tachycardia with fevers consistent with sepsis 3. Acute kidney injury, failure due to severe sepsis 4. Colon cancer status post resection 5. Liver abscess, para hepatic 6. Incisional wound abscess 7. Perforated anastomosis, acute 8. Ileus ruled out. PLAN: 1. CT-guided drainage discussed and recommended. 2. Low fiber diet initiating. 3. Continue ICU care. 4. May benefit from Lopressor for tachycardia. 5. May shower. 6. Ileostomy education with stoma nurse. 7. Discontinue reglan Objective - Vital Signs Vital signs: Vital Signs Temp 98.9 F 09/20/22 12:00 Pulse 118 H 09/20/22 14:00 Resp 27 H 09/20/22 14:00 BP 144/102 09/20/22 14:00 Pulse Ox 97 09/20/22 14:00 FiO2 40 09/17/22 10:41 Intake & Output 09/19/22 09/20/22 09/20/22 18:59 06:59 18:59 Intake Total 3206 2100 1525 Output Total 5819 0853 5952 Balance 474 -390 -622 Weight 101.6 kg 107.7 kg Intake: IV 2180 2050 1211 0.9 @ KVO 40 140 Anidulafungin 100 mg In 100 100 Sodium Chloride 0.9% 100 ml @ 84 mls/hr IVPB DAILY [facility] Rx#:[id number] CVP 15 21 DAPTOmycin 500 mg In 50 Sodium Chloride 0.9% 50 ml @ 100 mls/hr IVPB Q24HR [facility] Rx#:[id number] Dextrose 5% in Water 1, 575 650 50 000 ml @ 50 mls/hr IV . Q20H [facility] Rx#:[id number] Piperacillin-Tazobactam 3 200 100 100 .375 gm In Sodium Chloride 0.9% 100 ml @ 25 mls/hr IVPB Q8HR [facility] Rx# :[id number] Potassium Phosphate 3 1200 1300 mmol Sodium Acetate 30 meq Calcium Gluconate 1 gm In Amino Acids 5 %/ Dextrose 20 % 1,000 ml @ 100 mls/hr IV .BY DURATION [facility] Rx#: [id number] Potassium Phosphate 3 700 mmol Sodium Acetate 40 meq Calcium Gluconate 1 gm In Amino Acids 5 %/ Dextrose 20 % 1,000 ml @ 100 mls/hr IV .BY DURATION [facility] Rx#: [id number] Sodium Chloride 0.9% 1, 100 000 ml @ 20 mls/hr IV . Q24H [facility] Rx#:[id number] Intake, IV Titration 1026 50 Amount Magnesium Sulfate-D5w Pmx 50 1 gm In Dextrose/Water 1 100ml.bag @ 100 mls/hr IVPB ONCE ONE Rx#: [id number] Potassium Phosphate 3 1026 mmol Sodium Acetate 30 meq Calcium Gluconate 1 gm In Amino Acids 5 %/ Dextrose 20 % 1,000 ml @ 100 mls/hr IV .BY DURATION [facility] Rx#: [id number] Oral 0 0 250 Tube Feeding 64 Output: Urine 1380 1475 830 Stool 1160 1000 950 Other: Voiding Method Indwelling Catheter Indwelling Catheter Indwelling Catheter ABP, PAP, CO, CI - Last Documented Arterial Blood Pressure 176/96 - Labs CBC & Chem 7: 09/21/22 04:35 09/21/22 04:35 Labs: Abnormal Lab Results - Last 24 Hours (Table) 09/19/22 09/20/22 09/20/22 Range/Units 18:06 00:02 04:00 WBC (3.8-10.6) k/uL RBC (4.30-5.90) m/uL Hgb (13.0-17.5) gm/dL Hct (39.0-53.0) % Neutrophils # (1.3-7.7) k/uL Lymphocytes # (1.0-4.8) k/uL Sodium 135 L (137-145) mmol/L BUN 21 H (9-20) mg/dL Glucose 162 H (74-99) mg/dL POC Glucose (mg/dL) 179 H 157 H (70-110) mg/dL Calcium 8.0 L (8.4-10.2) mg/dL 09/20/22 09/20/22 09/20/22 Range/Units 04:00 06:20 11:55 WBC 15.4 H (3.8-10.6) k/uL RBC 2.97 L (4.30-5.90) m/uL Hgb 8.1 L (13.0-17.5) gm/dL Hct 24.8 L (39.0-53.0) % Neutrophils # 13.6 H (1.3-7.7) k/uL Lymphocytes # 0.7 L (1.0-4.8) k/uL Sodium (137-145) mmol/L BUN (9-20) mg/dL Glucose (74-99) mg/dL POC Glucose (mg/dL) 180 H 149 H (70-110) mg/dL Calcium (8.4-10.2) mg/dL Microbiology - Last 24 Hours (Table) 09/16/22 12:55 Blood Culture - Preliminary Blood
[2022-09-20 16:41] LABS: Glucose,Whole Blood 161 mg/dL (70-110)
[2022-09-20] MEDS ORDERED: Potassium Replacement Protocol 1 EACH MISC MISCELLANE PRN (17:32)
[2022-09-20] MEDS: POTASSIUM CHLORIDE 10 MEQ in WATER FOR INJECTION 1 100ML.BAG IVPB SCH ×2 (17:39→19:38)
[2022-09-20] MEDS: FAT EMULSION 20% 250 ML in EMPTY BAG 1 BAG IV SCH (17:45)
[2022-09-20] MEDS ORDERED: INSULIN ASPART (NovoLOG) 100 UNIT/ML VIAL SQ SCH (18:00)
[2022-09-20 19:57] LABS: Glucose,Whole Blood 129 mg/dL (70-110)
--- NOTE | 2022-09-20 22:38 | P.PN ---
Subjective Progress Note Date: 09/20/22 Principal diagnosis: Intra-abdominal abscess Patient is a 52-year-old male presenting to the hospital with abdominal pain has been diagnosed with an intra-abdominal abscess from perforated diverticulum status post laparotomy and drainage of the abscess. Patient is status post IR drainage of perihepatic abscess completed on 09/11/2022, Patient was taken back to the OR on 09/13/2022 for small bowel necrosis and perforation, the patient is status post exploration laparotomy and lysis of addition resection of the ileocolonic anastomosis and drainage of the perihepatic local area abscess small bowel resection and creation of ileostomy on today's evaluation that is 09/20/2022 patient is afebrile patient is breathing comfortably on room air patient denies having any chest pain shortness of breath or cough no nausea vomiting abdominal pain is currently controlled, the patient did have output in his ileostomy Objective - Vital Signs Vital signs: Vital Signs Temp 98.9 F 09/20/22 12:00 Pulse 121 H 09/20/22 12:00 Resp 29 H 09/20/22 12:00 BP 139/92 09/20/22 12:00 Pulse Ox 98 09/20/22 12:00 FiO2 40 09/17/22 10:41 Intake & Output 09/19/22 09/20/22 09/20/22 18:59 06:59 18:59 Intake Total 3206 2100 1215 Output Total 2540 2475 1340 Balance 666 -375 -125 Weight 101.6 kg 107.7 kg Intake: IV 2180 2050 965 0.9 @ KVO 40 100 Anidulafungin 100 mg In 100 100 Sodium Chloride 0.9% 100 ml @ 84 mls/hr IVPB DAILY [facility] Rx#:[id number] CVP 15 15 DAPTOmycin 500 mg In 50 Sodium Chloride 0.9% 50 ml @ 100 mls/hr IVPB Q24HR [facility] Rx#:[id number] Dextrose 5% in Water 1, 575 650 50 000 ml @ 50 mls/hr IV . Q20H [facility] Rx#:[id number] Piperacillin-Tazobactam 3 200 100 100 .375 gm In Sodium Chloride 0.9% 100 ml @ 25 mls/hr IVPB Q8HR [facility] Rx# :[id number] Potassium Phosphate 3 1200 1300 mmol Sodium Acetate 30 meq Calcium Gluconate 1 gm In Amino Acids 5 %/ Dextrose 20 % 1,000 ml @ 100 mls/hr IV .BY DURATION [facility] Rx#: [id number] Potassium Phosphate 3 500 mmol Sodium Acetate 40 meq Calcium Gluconate 1 gm In Amino Acids 5 %/ Dextrose 20 % 1,000 ml @ 100 mls/hr IV .BY DURATION [facility] Rx#: [id number] Sodium Chloride 0.9% 1, 100 000 ml @ 50 mls/hr IV . Q20H [facility] Rx#:[id number] Intake, IV Titration 1026 50 Amount Magnesium Sulfate-D5w Pmx 50 1 gm In Dextrose/Water 1 100ml.bag @ 100 mls/hr IVPB ONCE ONE Rx#: [id number] Potassium Phosphate 3 1026 mmol Sodium Acetate 30 meq Calcium Gluconate 1 gm In Amino Acids 5 %/ Dextrose 20 % 1,000 ml @ 100 mls/hr IV .BY DURATION [facility] Rx#: [id number] Oral 0 0 250 Output: Urine 1380 1475 665 Stool 1160 1000 675 Other: Voiding Method Indwelling Catheter Indwelling Catheter Indwelling Catheter ABP, PAP, CO, CI - Last Documented Arterial Blood Pressure 176/96 - Exam GENERAL DESCRIPTION: A middle-age male lying in bed in no distress RESPIRATORY SYSTEM: Unlabored breathing , decreased breath sounds at bases HEART: S1 S2 regular rate and rhythm , ABDOMEN: Soft , midline incision is intact and did have output in ileostomy EXTREMITIES: No edema feet - Labs CBC & Chem 7: 09/20/22 04:00 09/20/22 16:35 Labs: Abnormal Lab Results - Last 24 Hours (Table) 09/19/22 09/20/22 09/20/22 Range/Units 18:06 00:02 04:00 WBC (3.8-10.6) k/uL RBC (4.30-5.90) m/uL Hgb (13.0-17.5) gm/dL Hct (39.0-53.0) % Neutrophils # (1.3-7.7) k/uL Lymphocytes # (1.0-4.8) k/uL Sodium 135 L (137-145) mmol/L BUN 21 H (9-20) mg/dL Glucose 162 H (74-99) mg/dL POC Glucose (mg/dL) 179 H 157 H (70-110) mg/dL Calcium 8.0 L (8.4-10.2) mg/dL 09/20/22 09/20/22 09/20/22 Range/Units 04:00 06:20 11:55 WBC 15.4 H (3.8-10.6) k/uL RBC 2.97 L (4.30-5.90) m/uL Hgb 8.1 L (13.0-17.5) gm/dL Hct 24.8 L (39.0-53.0) % Neutrophils # 13.6 H (1.3-7.7) k/uL Lymphocytes # 0.7 L (1.0-4.8) k/uL Sodium (137-145) mmol/L BUN (9-20) mg/dL Glucose (74-99) mg/dL POC Glucose (mg/dL) 180 H 149 H (70-110) mg/dL Calcium (8.4-10.2) mg/dL Microbiology - Last 24 Hours (Table) 09/16/22 12:55 Blood Culture - Preliminary Blood Assessment and Plan (1) Intra-abdominal abscess Current Visit: Yes Status: Acute Code(s): K65.1 - PERITONEAL ABSCESS SNOMED Code(s): 94965031 Plan: 1patient with sepsis in this patient who did have a fever tachycardia elevated white count source is intra-abdominal in this patient with evidence of colonic diverticular perforation intra-abdominal abscess status post laparotomy drainage of the abscess and primary anastomosis , cultures growing E. coli Pseudomonas and Enterococcus faecium with sensitivities pending. 2patient with fever and elevated white count concerning for perihepatic abscess, the patient is status post CT-guided drainage culture has been obtained which dual E. coli which is sensitive pathogen 3-patient did have subsequent bowl perforation from small bowel necrosis status post extensive abdominal surgery lysis of adhesion and creation of ileostomy cultures has been obtained and those are currently pending 4the patient fever has resolved and the white count is currently at 15K, Pt abdominal culture 09/11/22 is growing E. coli sensitive to Zosyn sputum grew the same E. coli that is sensitive to Zosyn, we will continue patient on Zosyn and Eraxis and monitor clinical course closely , Apparently culture has been obtained from his abdominal wound by the nursing staff and those results will be followed Time with Patient: Less than 30
--- NOTE | 2022-09-20 23:05 | P.PN ---
Subjective This is a 52 year old male monitored in the intensive care unit postoperative day #4 lysis of adhesions and right hemicolectomy due to bowel perforation. Patient had end to end anastamosis. Has not had bowel movement, had KUB xray today showing multiple dilated small bowel loops possible ileus vs. obstruction. General surgery recommending patient to be NPO at this time. Heart rate remains elevated in the 120s and patient switched to IV lopressor. Remains on IV daptomycin and IV zosyn for positive peritoneal fluid culture with E. Coli, enterococcus and pseudomonas. Blood culture negative so far. Patient remains on D5 water at 100 mls/hr, sodium is slightly improved today down to 146. Continues on TPN, NG tube has been discontinued. Accuchecks switched to Q6h and small dose of levemir HS has been added. SARAI drain in place with serous drainage. Patient febrile today up to 101.9, encouraged to continue with incentive spirometer. Patient has wound vac in place to continuous suction, plan to ambulate around the room and up in the chair today. 09/09/2022 Patient is evaluated today in the ICU resting in bed. Alert x 3. Asking about discharge. Repeat blood culture is pending patient remains on IV antibiotics. White count up to 19.7 today. Patient reports BM yesterday and passing some gas today. Abdomen is more distended. Surgery recommending NG tube today. Patient remains NPO. Midline incisional wound vac in place. Patient remains with fever, using incentive spirometer reaching 1200. Continues on TPN. 09/10/2022 Patient remains in the intensive care unit. Patient continues to be NPO. 3 attempts were made to pass NG tube and were unsuccessful. Patient did have 2 BMs yesterday, abdomen remains significantly distended. Repeat abdominal pelvis CT reveals loculated and nonloculated perihepatic collections some of which demonst rate mildly thickened almeida with internal foci of air. Perihepatic abscesses are not excluded. Persistent dilation of small bowel with small bowel wall thickening and inflammatory change at the enterocolonic anastomotic site. Persistent postoperative ileus and/or obstructive changes not excluded. Adjacent drain is in place. Contrast does not opacify the anastomotic site and therefore leak is difficult to evaluate or exclude. Small amt of free air persists improved from prior study. White count 18.3 today, electrolytes are normalized and blood glucose improved to 115. Patient remains on TPN. Blood culture remains negative. Remains on IV zosyn and IV daptomycin. Temp of 100.4 and remains tachy cardic 121, blood pressure stable at 131/94. 09/11/2022 Patient is evaluated today in the intensive care unit. Remains tachycardic and T-Max of 100.7 overnight. Scheduled to undergo drainage and placement of drainage tube to the perihepatic abscess noted on CT imaging with IR today. White count down to 16.0 today. Continues on IV daptoymcin and IV vancomycin. Per nursing did have a small BM overnight. 09/12/2022 Patient evaluated today in the intensive care unit. Underwent CT guided abscess drainage with 100 mls of purulent drainage and also had midline fransisca removed at the top of incision with some purulent drainage. Patients white count is down to 12.8 today. Kidney function stable, sodium 135 today. Patient has been cleared to start diet, having small BMs. Metoprolol will be changed to oral. Fever is improving. Cultures are pending from the abscess and ID is following closely. 09/13/2022 Patient continues to be monitored closely in the intensive care unit. Patient continues with significant tachycardia not improving with metoprolol and continues with abdominal distention. Cardiology was placed on consultation for the tachycardia and patient has been transitioned back to IV lopressor. Wound cultures from the CT guided are showing gram negative bacilli. This morning per nursing the abdomen was more distended and patient had felt a popping sensation with evidence of leaking of brown colored drainage from the surgical incision and the drainage bag. The surgical incision was opened yesterday at the bedside by surgery. Patient was taken for emergent exploratory laporotomy. White count is 17.9 today, sodium 134, potassium 5.0. Kidney function remains stable. Patient has been continued to be NPO no NG tube present. Labs and vitals reviewed. 09/14/2022 Patient is evaluated today he is currently in the intensive care unit intubated and sedated he is on combination of nimbex and propofol. Patient is currently on the mechanical ventilator with 40% FiO2. Patient is also requiring levophed and vasopression. Patient continues on IV daptomycin and IV zosyn. The wound culture shows E.Coli. Patient underwent extensive exploratory laporotomy yesterday with lysis of adhesions, resection of the ileocolic anastamosis due to anastomotic leak, small bowel resection for small bowel necrosis/peforation with placement of ileostomy. Patient had nataliia-stone drain x 2 placed and alpa drain placed. Abdomen was closed with a wound vac. Temp is T-max 100.4 today. Labs rev eal white count of 20.1, hgb 9.3, sodium 131, potassium at 6.6 and 5.9, BUN 32, creatinine 2.15, blood glucose 394, calcium 6.4, magnesium 1.4. Patient received IV magnesium, IV gluconate, and IV insulin humulin N. 09/15/2022 Patient is seen in a follow-up continues to be in the ICU with multiple medical consultations following. Patient continues on mechanical ventilation with an FiO2 of 40% and PEEP is 5. Patient is maintained on IV antibiotics in the form of dapto and Zosyn with Infectious Disease Following Closely and Culture Showing E. coli with Multiple Sensitivities. Patient Continues to Have Fevers and White Count Elevated Slightly Trending down to 18 Today. Recent Ileostomy Placed with No Function at This Time and Patient Is Maintained on TPN. Patient Continues with Drains along with a Wound VAC of the Abdomen. Hemoglobin Trending down and upon Stopping Currently Would Recommend Monitoring Closely and Transfuse of 7 or Less. Nephrology Following As Well This Patient's Kidney Functions Worsened Although Appear Better Today. Patient Remains Tachycardic on the Monitor and Troponins Have Been Negative. Recommend Continuing with Accu-Cheks per Protocol and Tight Glycemic Control. 09/16/2022 Patient is seen and evaluated in follow-up today and continues to remain on mechanical ventilation maintained on fentanyl and propofol under sedation. FiO2 is 40% with a PEEP of 5. Hemoglobin critically low at 6.3 and receiving a unit of PRBCs. Would recommend a dose of Lasix after unit of blood. Patient's overall swelling showing some improvement on chest x-ray continues to so show some stable pleural effusions. No bowel activity per nursing staff noted as of yet in the ostomy. Kidney functions are trending down. Patient is continuing to have temps and would recommend repeat blood cultures, sputum culture, urine culture. 09/17/2022 Patient is seen in follow-up this morning continues to be in the ICU on mechanical ventilation and undergoing sedation holidays. FiO2 is 40% with a PEEP of 5. Per nursing staff patient is following commands on sedation holiday but not quite ready for weaning per pulmonary manager care management. Patient's hemoglobin is improved today at 7.6 status post 1 unit of PRBC yesterday. White count remains slightly elevated at 17.4 and patient continues to have fevers. Infectious disease following closely and repeat blood cultures along with sputum culture have all been sent. Initial culture showing some E. coli and patient is maintained on IV antibiotics in the form of daptomycin, Eraxis, and Zosyn as well awaiting finalized cultures. Patient is noted to have some loose liquid stool noted in the ostomy and is maintained on TPN. Patient is currently off pressor support as well. Prognosis Remains guarded. 09/18/2022 Patient is seen and evaluated in follow-up today continues to be in the ICU was recently extubated yesterday successfully currently maintained on 3 L via nasal cannula. Patient is off pressor support and blood pressure is mildly hypertensive and patient continues to be tacky. Patient most recent fever was last night of 100.4. Patient is maintained on IV antibiotics with infectious disease following and preliminary sputum cultures repeated show gram-negative an initial wound culture showing E. coli along with Pseudomonas and enterococcus. Patient had copious amounts of drainage from ostomy per nursing staff with general surgery is admitting and repeat CT abdomen is ordered and pending at th is time. C. diff sample also being sent which is pending at this time. Patient is maintained on TPN and will continue on strict nothing by mouth per surgery recommendations until Dr. Helton advances. WBC is 19.2 and hemoglobin is 8.2, sodium 142 with a potassium of 3.9 and current creatinine is 0.94. Magnesium is 2.1. Chest x-ray today shows bilateral infiltrates and small pleural effusions are stable. 09/19/2022 Patient admitted to the hospital for perforated colonic diverticulum after recent right hemicolectomy for his colon cancer and discharge home. Patient status post laparoscopic right hemicolectomy and primary anastomosis and drainage of abscess. This has been scanning of the abdominal and yesterday showing right lower quadrant seroma on abscesses and dilated small bowel which could be ileus versus obstruction. The patient with evidence of positive cultures including sputum with E. coli on wound culture with E. coli HER FLUID WITH E. COLI AND PSEUDOMONAS. PATIENT On MULTIPLE ANTIBIOTIC INCLUDING Eraxis, daptomycin and Zosyn 09/20/2029 Patient improving slowly and gradually Patient is more awake and relaxed, no new complaints Just tolerating diet and will be advanced as per surgery team No bowel movement but had high output ileostomy in the right lower quadrant still slightly tachycardic and tachypneic TPN and place Objective - Vital Signs Vital signs: Vital Signs Temp 98.9 F 09/20/22 12:00 Pulse 118 H 09/20/22 14:00 Resp 27 H 09/20/22 14:00 BP 144/102 09/20/22 14:00 Pulse Ox 97 09/20/22 14:00 FiO2 40 09/17/22 10:41 Intake & Output 09/19/22 09/20/22 09/20/22 18:59 06:59 18:59 Intake Total 3206 2100 1525 Output Total 3422 1154 8850 Balance 717 -311 -450 Weight 101.6 kg 107.7 kg Intake: IV 2180 2050 1211 0.9 @ KVO 40 140 Anidulafungin 100 mg In 100 100 Sodium Chloride 0.9% 100 ml @ 84 mls/hr IVPB DAILY [facility] Rx#:[id number] CVP 15 21 DAPTOmycin 500 mg In 50 Sodium Chloride 0.9% 50 ml @ 100 mls/hr IVPB Q24HR [facility] Rx#:[id number] Dextrose 5% in Water 1, 575 650 50 000 ml @ 50 mls/hr IV . Q20H [facility] Rx#:[id number] Piperacillin-Tazobactam 3 200 100 100 .375 gm In Sodium Chloride 0.9% 100 ml @ 25 mls/hr IVPB Q8HR [facility] Rx# :[id number] Potassium Phosphate 3 1200 1300 mmol Sodium Acetate 30 meq Calcium Gluconate 1 gm In Amino Acids 5 %/ Dextrose 20 % 1,000 ml @ 100 mls/hr IV .BY DURATION [facility] Rx#: [id number] Potassium Phosphate 3 700 mmol Sodium Acetate 40 meq Calcium Gluconate 1 gm In Amino Acids 5 %/ Dextrose 20 % 1,000 ml @ 100 mls/hr IV .BY DURATION [facility] Rx#: [id number] Sodium Chloride 0.9% 1, 100 000 ml @ 20 mls/hr IV . Q24H [facility] Rx#:[id number] Intake, IV Titration 1026 50 Amount Magnesium Sulfate-D5w Pmx 50 1 gm In Dextrose/Water 1 100ml.bag @ 100 mls/hr IVPB ONCE ONE Rx#: [id number] Potassium Phosphate 3 1026 mmol Sodium Acetate 30 meq Calcium Gluconate 1 gm In Amino Acids 5 %/ Dextrose 20 % 1,000 ml @ 100 mls/hr IV .BY DURATION [facility] Rx#: [id number] Oral 0 0 250 Tube Feeding 64 Output: Urine 1380 1475 830 Stool 1160 1000 950 Other: Voiding Method Indwelling Catheter Indwelling Catheter Indwelling Catheter ABP, PAP, CO, CI - Last Documented Arterial Blood Pressure 176/96 - Exam -GENERAL: The patient is drowsy, not in any acute distress. Well developed, well nourished. HEENT: Pupils are round and equally reacting to light. EOMI. No scleral icterus. No conjunctival pallor. Normocephalic, atraumatic. No pharyngeal erythema. No thyromegaly. CARDIOVASCULAR: S1 and S2 present. No murmurs, rubs, or gallops. PULMONARY: Chest is clear to auscultation, no wheezing . no crackles. -ABDOMEN: Soft, nontender, nondistended, normoactive bowel sounds. No palpable o rganomegaly. Healing surgical wound was dressed in a Place, Cruz catheter in place MUSCULOSKELETAL: No joint swelling or deformity. EXTREMITIES: No cyanosis, clubbing, or pedal edema. NEUROLOGICAL: Gross neurological examination did not reveal any focal deficits. SKIN: No rashes. no petechiae. - Labs CBC & Chem 7: 09/20/22 04:00 09/20/22 16:35 Labs: Abnormal Lab Results - Last 24 Hours (Table) 09/19/22 09/20/22 09/20/22 Range/Units 18:06 00:02 04:00 WBC (3.8-10.6) k/uL RBC (4.30-5.90) m/uL Hgb (13.0-17.5) gm/dL Hct (39.0-53.0) % Neutrophils # (1.3-7.7) k/uL Lymphocytes # (1.0-4.8) k/uL Sodium 135 L (137-145) mmol/L BUN 21 H (9-20) mg/dL Glucose 162 H (74-99) mg/dL POC Glucose (mg/dL) 179 H 157 H (70-110) mg/dL Calcium 8.0 L (8.4-10.2) mg/dL 09/20/22 09/20/22 09/20/22 Range/Units 04:00 06:20 11:55 WBC 15.4 H (3.8-10.6) k/uL RBC 2.97 L (4.30-5.90) m/uL Hgb 8.1 L (13.0-17.5) gm/dL Hct 24.8 L (39.0-53.0) % Neutrophils # 13.6 H (1.3-7.7) k/uL Lymphocytes # 0.7 L (1.0-4.8) k/uL Sodium (137-145) mmol/L BUN (9-20) mg/dL Glucose (74-99) mg/dL POC Glucose (mg/dL) 180 H 149 H (70-110) mg/dL Calcium (8.4-10.2) mg/dL Microbiology - Last 24 Hours (Table) 09/16/22 12:55 Blood Culture - Preliminary Blood Assessment and Plan Assessment: Perforated colonic diverticulum of the transverse: With recent history of laparoscopic hemicolectomy and primary anastomosis for colon cancer Neurologic small bowel could be ileus versus obstruction Right lower quadrant seroma versus abscess Abdominal sepsis secondary to above Anemia Leukocytosis Plan: Continue with antibiotic axis, daptomycin and Zosyn Continue D5W Multiple consultants including critical care pulmonary, infectious disease and surgery team Continue with Levemir insulin Labs and medication were reviewed.. Continue same treatment. Continue with symptomatic treatment. Resume home medication. Monitor labs and vitals. DVT and GI prophylaxis. Further recommendations as per clinical course of the patient DVT prophylaxis: Subcutaneous heparin GI Prophylaxis: Ppi Prognosis is guarded
[2022-09-21] MEDS: PIPERACILLIN-TAZOBACTAM 3.375 GM in SODIUM CHLORIDE 0.9% 100 ML IVPB SCH ×4 (00:14→23:57)
[2022-09-21] MEDS: HYDROmorphone 1 MG/ML 1 ML SYRINGE IVP PRN ×6 (01:43→22:24)
[2022-09-21] MEDS: [UNRECOGNIZED DRUG - REMARK] IV SCH ×12 (04:40→15:04)
[2022-09-21 04:46] LABS: Basophils % (A) 0 %; Eosinophils # (A) 0.5 k/uL (0-0.7); Eosinophils % (A) 3 %; HCT 22.4 % (39.0-53.0); HGB 7.5 gm/dL (13.0-17.5); Hypochromasia Slight; Lymphocytes # (A) 0.7 k/uL (1.0-4.8); Lymphocytes % (A) 4 %; MCH 27.9 pg (25.0-35.0); MCHC 33.4 g/dL (31.0-37.0); MCV 83.6 fL (80.0-100.0); Monocytes # (A) 0.6 k/uL (0-1.0); Monocytes % (A) 3 %; Neutrophils # (A) 15.6 k/uL (1.3-7.7); Neutrophils % (A) 89 %; Platelet Count 346 k/uL (150-450); RBC 2.68 m/uL (4.30-5.90); WBC 17.6 k/uL (3.8-10.6)
[2022-09-21 04:55] LABS: African American GFR (CKD) >90 (>60 ml/min/1.73 sqM); Anion Gap 7 mmol/L; Blood Urea Nitrogen 17 mg/dL (9-20); Calcium 7.9 mg/dL (8.4-10.2); Carbon Dioxide 23 mmol/L (22-30); Chloride 105 mmol/L (98-107); Glucose 137 mg/dL (74-99); Magnesium 1.7 mg/dL (1.6-2.3); Non-African American GFR(CKD) >90 (>60 ml/min/1.73 sqM); Phosphorus 3.1 mg/dL (2.5-4.5); Potassium 3.6 mmol/L (3.5-5.1); Sodium 135 mmol/L (137-145)
[2022-09-21] MEDS ORDERED: MAGNESIUM SULFATE-D5W PMX 1 GM in DEXTROSE/WATER 1 100ML.BAG IVPB ONE (05:07)
[2022-09-21] MEDS ORDERED: POTASSIUM CHLORIDE ER 20 MEQ TAB.ER PO SCH (06:00)
[2022-09-21 06:15] LABS: Glucose,Whole Blood 168 mg/dL (70-110)
[2022-09-21] MEDS: INSULIN ASPART (NovoLOG) 100 UNIT/ML VIAL SQ SCH ×8 (06:18→20:28)
[2022-09-21] MEDS: INSULIN DETEMIR (LEVEMIR) 100 UNIT/ML SYR SQ SCH ×2 (06:19→20:21)
[2022-09-21] MEDS: IPRATROPIUM-ALBUTEROL 3 ML NEB INHALATION SCH ×5 (08:02→19:54)
[2022-09-21] MEDS: ANIDULAFUNGIN 100 MG in SODIUM CHLORIDE 0.9% 100 ML IVPB SCH (08:51)
[2022-09-21] MEDS: DAPTOmycin 500 MG in SODIUM CHLORIDE 0.9% 50 ML IVPB SCH (08:51)
[2022-09-21] MEDS: HEPARIN SODIUM,PORCINE/PF 5,000 UNIT/0.5 ML SYRINGE SQ SCH ×2 (09:11→20:21)
[2022-09-21] MEDS: PANTOPRAZOLE 40 MG/10 ML VIAL IV SCH (09:11)
[2022-09-21] MEDS: SODIUM CHLORIDE 0.9% 1,000 ML IV SCH (09:18)
--- NOTE | 2022-09-21 09:18 | P.PN ---
Subjective Progress Note Date: 09/21/22 This is a 52-year-old -Polish male with history of colon cancer, status post right hemicolectomy for cecal colon cancer on 08/29/2022. Patient was discharged uneventfully on Percocet and Motrin for pain control. Patient was readmitted on 09/03/2022, he was mostly admitted with abdominal pain, distention, nausea and vomiting which started a few days prior to his admission. Patient was seen by surgery on consultation, and he was found to have acute pneumoperitoneum. Yesterday, the patient underwent robotic-assisted laparoscopic extensive lysis of adhesions open exploratory laparotomy with right hemicolectomy and primary anastomosis drainage of abdominal abscess abdominal peritoneal lavage, Margarita spent of a SARAI drain in the pelvis and placement of the incisional wound VAC system. I was notified about this patient from Dr. Moeller yesterday, and considering his abdominal sepsis presentation considering his surgical findings considering the patient was not extubated postoperatively, we admitted the patient to the ICU, manage his ventilator overnight, and I'm evaluating the patient today on consultation. Patient had a relatively uneventful night, did not require any pressors, he did receive fluids and he seems to be hemodynamically stable, remains on mechanical ventilation. H is ventilator settings at this point are assist control rate of 18 tidal volume 500 FiO2 40% and PEEP of 5 recent ABG showed a pO2 of 79 pCO2 39 pH of 7.42 patient is on vancomycin and Zosyn for his abdominal sepsis he is on propofol at 65 mcg/kg/m he has good urine output roughly 30-50 mL per hour. Patient has a nasogastric tube applied to suction and he has a wound VAC. He also has a SARAI drain noted. Patient is sedated and calm, however I would recommend a trial of sedation interruption and possibly weaning parameters, if tolerated may consider further weaning and extubation today. Labs today showed relatively normal CBC WBC count is 8.6 hemoglobin is 10.4. Elect lites are normal BUN is 23 creatinine 1.36. Reevaluated today on 09/06/2022, patient remains in the ICU, patient was ext ubated yesterday and he tolerated extubation well over the last 24 hours. He is on 2 L nasal cannula, not in any distress. Continues to have significant nasogastric output. Patient is to be started on TPN today. Doing better than expected overall. Remains on antibiotics for his abdominal sepsis. White count is 11.8 today hemoglobin is 9.6. Elect lites are normal renal profile is normal with a creatinine of 1.14, improving since admission from 2.14 on admission. Patient is compliant with his incentive spirometry and doing a good job with I- S. Reevaluated today on 09/07/2022, patient remains in the ICU, he feels generally weak, denies any shortness of breath, no cough, no wheezing. Continues to have nasogastric tube in place, and he had 1 50 mL of output overnight. Patient on TPN for nutritional support. His sodium was noted to be elevated today, and I recommended switching his IV fluid to D5W at 100 mL per hour. His labs otherwise are unremarkable. Patient is doing well with incentive spirometry, pain is fairly well controlled. Renal profile is normal, WBC count is 11.8 hemoglobin is 9.6 The patient is seen today 09/08/2022 in follow-up in the intensive care unit. Danny jordan is currently resting comfortably in bed. Awake and alert in no acute distress. He is maintaining good O2 saturations in the mid 90s on room air. He is febrile with a temp of 101.9. Tachycardic. Hypertensive. Blood cultures pending. Abdominal x-ray revealed persistent markedly dilated small bowel loops. Peritoneal fluid cultures were positive for E. coli, Pseudomonas aeruginosa, enterococcus faecium. He remains nothing by mouth. He is continued on TPN and lipids. Antibiotics in the form of Zosyn and now daptomycin. Remains on heparin for DVT prophylaxis. He is up ambulating with assistance. The patient is seen today 09/09/2022 in follow-up in the intensive care unit. He is currently resting comfortably in bed. Awake and alert in no acute distress. White count 19.7. Hemoglobin 9.4. Platelets 245. Sodium 141. Potassium 3.9. Bicarb 24. BUN 14. Creatinine 0.78. Glucose 139. He is maintaining good O2 saturations in the mid 90s on room air. Continues with a low-grade fever currently at 100.8. Tachycardic. He is continued on TPN 108 ML's per hour. He has D5W it 100 ML's per hour. 0.9 normal setting at KVO. He is on antibiotics in the form of Zosyn and daptomycin. He is working well with the incentive spirometer. Remains on strict nothing by mouth per surgical services. The patient is seen today 09/10/2022 in follow-up in the intensive care unit. He is currently resting fairly comfortably in bed. Awake and alert in no acute distress. Chest x-ray shows improving bilateral infiltrate and small effusion. He continues to maintain good O2 saturations in the 90s on room air. Some abdominal distention and discomfort. Follow-up computed tomography scan pending. Still have an elevated temperatures up to 102.4 last night. White count 18.3. Hemoglobin 8.8. Sodium 139. Potassium 4.0. Bicarb 24. BUN 14. Creatinine 0.83. He remains on daptomycin and Zosyn. Being nourished with TPN at 108 ML's per hour. Heparin for DVT prophylaxis. The patient is seen today 09/11/2022 in follow-up in the intensive care unit. He is currently resting in bed. Awake and alert in no acute distress. Maintaining good O2 saturations in the 90s on room air. His initial peritoneal fluid cultures were positive for E. coli, pseudomonas aeruginosa, enterococcus faecium. Follow-up blood cultures are pending. He did have issues with abdominal distention. Follow-up computed tomography scan revealed loculated and non-loculated. Hepatic collections some of which demonstrate mildly thickened almeida with internal foci of air.. Hepatic abscesses are not excluded. Persistent dilatation of the small bowel small bowel wall thickening and inflammatory change in the interval colonic anastomotic site. Persistent postoperative ileus and/or obstructive change is not excluded. Adjacent drains in place. Leak is difficult to exclude. Small amount of free air persistent but improved. Chest x-ray reveals stable bilateral lower lobe infiltrate and small effusion. Left-sided PICC line remains in place. White count 16.0. Hemoglobin 9.1. Platelets 270. Sodium 136. Potassium 4.3. Bicarb 24. BUN 15. Creatinine 0.90. Glucose 124. He is continued on daptomycin and Zosyn. Continues to work with the incentive spirometer. Heparin for DVT prophylaxis. Being nourished with TPN at 108 ML's per hour. The patient is seen today 09/12/2022 in follow-up in the intensive care unit. He is currently resting comfortably in bed. Awake and alert in no acute distress. Maintaining O2 saturations in the 90s on room air. Working well with the incentive spirometer. He did undergo a a CT-guided abscess drainage of the liver yesterday with 100 purulent fluid removed. He also had several fransisca removed from his abdominal wound that drained fluid as well. Cultures are pending. A venous. Gladwin fluid cultures were positive for E. coli, pseudom onas aeruginosa, enterococcus faecium. White count 12.8. He will been 8.8. Platelets 302. Sodium 135. Potassium 4.8. Bicarb 24. BUN 15. Creatinine 0.79. Glucose 149. He remains on TPN at 180 MLS per hour. Continued on Zosyn and daptomycin. The patient is seen today 09/13/2022 in follow-up in the intensive care unit. He remains awake and alert. Maintaining O2 saturations in the 90s on room air. Slightly febrile at 99.6. He is tachycardic. He has been having issues now with stool and air oozing from his abdominal surgical site. Apparently he had a coughing episode and had some dehiscence in the supraumbilical location. There is also air seen from the abdominal cavity coming to the staple line. Surgical services are following and plans for return to the OR this morning. His body fluid cultures had previously been positive for E. coli, pseudomonas aeruginosa, enterococcus facing him. Wound culture still positive with gram-negative bacilli. He's been continued on daptomycin and Zosyn. White count 17.9. Hemoglobin 9.0. Platelets 458. Sodium 134. Potassium 5.0. Bicarb 21. BUN 16. Creatinine 0.01. Glucose 136. He remains on TPN at 108 ML's per hour. Lipids on Wednesdays and Saturdays. Heparin for DVT prophylaxis. Dilaudid for pain control. The patient is seen today 09/14/2022 in follow-up in the intensive care unit. He did end up going back to surgery yesterday. This is quite extensive and lasting nearly 7 hours. He had undergone an exploratory laparotomy and extensive lysis of adhesions, resection of ilealcolic anastomosis, drainage of perihepatic loculated abscess with removal of CT-guided drain, small bowel resection for small bowel necrosis/perforation, placement of ileostomy, abdominal washout with 7 L of normal saline, debridement of abdominal wall midline incision, patient of the Moiz-Hanley in the right anterior lateral hepatic space, placement of Moiz-Hanley drain in the right pelvis, quarter-inch Don drain in the subcutaneous tissue midline incision and placement of Provena incisional wound VAC system. He was returned to the intensive care unit on the mechanical ventilator. Current settings are assist-control mode of 28, tidal volume 500, FiO2 40% and a PEEP of 5. Morning blood gases revealed a pO2 of 184, pCO2 of 41, pH 7.31 on 50% FiO2. White count 20.1. Hemoglobin 9.3. Platelets 41. Sodium 131. Potassium initially 6.6 corrected to 5.9, bicarb 20, BUN 32. Creatinine 2.15. Glucose 379. Magnesium 1.4. Chest x-ray reveals bibasilar atelectasis. No evidence of pneumothorax. Endotracheal and gastric tube secured in place. Left-sided PICC line in place. Follow-up abdominal wound culture positive for E. coli. He is currently on daptomycin and Zosyn. He is requiring pressor support currently on norepinephrine at 25 mcg/m. Vasopressin at 0.03 units per minute. Propofol at 50 mcg/kg/m. Nimbex at 1.5 mcg/kg/m. 0.9 normal saline at 50 MLS per hour. TPN at 108 ML's per hour and lipids for nourishment. CVP of 10. He is status post 8 L of fluid resuscitation. Currently in a +8.6 L balance. On 09/15/2022, the patient is being seen in follow-up in the intensive care unit. The patient is currently intubated on a mechanical ventilator. The patient is sedated with propofol at 75 mcg/kg/m and the patient is also Nimbex at 1 mcg/kg/m. He is adequately sedated and paralyzed at this point in time. He remains on a mechanical ventilator. Is on assist control mode at the rate of 28, tidal volume of 500, FiO2 of 40% with a PEEP of 5. The patient blood gas from this morning shows a pH of 7.39 with a pCO2 of 41 and pO2 of 106 and this was on FiO2 of 40%. The chest x-ray from today shows some atelectatic changes in left lung base. Otherwise the lungs are well expanded. There is no evidence of pneumothorax. ET tube is in a good location at this point in time. The patient also has a orogastric tube in place. The triple-lumen catheter in the left side is also seen in the subclavian vein. Hemodynamically, the patient is on IV fluids and currently is on 0.9 at the rate of 150 mL an hour. The patient is also on pressors. He was on norepinephrine earlier this morning this was weaned off and discontinued. He remains on vasopressin physiologic dose at 0.03 units per minutes. The patient's urine output is in order of 30-40 mL an hour. That fluid balance has been 1.3 L over the past 24 hours. The viscosity 2.8 with hemoglobin of 7.3 and a drop in hemoglobin has been noted. The patient's platelet count is at 398. BUN is at 27 with a creatinine of 1.3 and a sodium level is at 138. Glucose is at 255. Antibiotic coverage is with a combination of daptomycin and Zosyn. TPN is running at the rate of 108 mL an hour. Most recent cultures from the abdominal wall this consistent with E. coli Pseudomonas and enterococcus. The surgical wound site is currently dry clean and intact. The patient is a SARAI drain in the left lower quadrant and another drain in the le ft upper quadrant. Ileostomy is viable and there is minimal amount of liquidy output collecting in the ileostomy bag. This morning, he is afebrile. He did spike a temperature yesterday. 09/16/2022, the patient remains intubated on a mechanical ventilator and the patient is being seen in follow-up in the intensive care unit. This morning, the patient is still having episodes of fever. He remains in sinus tachycardia. Remains intubated on a mechanical ventilator on a combination of propofol and fentanyl. Nimbex was discontinued yesterday. Propofol is running at a dose of 60 mcg/kg/m and fentanyl is running at 1 mcg/kg/h. He seems to be quite comfortable. He was given a brief sedation holiday yesterday and he was able to follow some simple commands. Nevertheless, he is not fully ready for weaning at this point in time. Earlier this morning, he was on assist control of 28, tidal volume of 500, FiO2 of 40% with a PEEP of 5. His peak airway pressure was 38. His minute ventilation was up to 15 L and his blood gas showed a pH of 7.46 with a pCO2 of 38 and pO2 of 116. Chest x-ray showed atelectatic change in lung bases bilaterally. ET tube remains in a good location. The patient also has a right subclavian triple-lumen catheter in place. Based on those, dropped the rate down to 22 and the dropped the tidal volume to 400. His peak air pressures down to 17. His current minute ventilation is around 11.7 L. His breathing is slightly labored on a mechanical ventilator. Is using some chest and abdominal wall muscles to generate volumes. His ileostomy is still not fully functional. His minimal amount of liquidy output collecting in the back. He does have a bowel sounds and essentially a SARAI drains in his left lower quadrant and left upper quadrant and output is serosanguineous and some the order of 200 mL every 24 hours. He is still spiking temperature and the white cell count still elevated at 16. There has been also had a further drop in hemoglobin down to 6.3. White cell count at 16.3. Platelet counts are as for 33. He is recovering from acute kidney injury. Creatinine is down to 1.4 with a BUN of 26 and the sodium levels of 139. He is on TPN for nutritional support which is running at the rate of 42 mL an hour. He is not receiving any form of enteral feeding for nutritional support. Urine output is adequate for now. Overall fluid balance over the past 24 hours has been +3.3 L. No pressors and the patient was taken off the norepinephrine yesterday. He remains on physiologic dose of vasopressin at 0.03 units an hour. On 09/17/2022, the patient is being seen for a follow-up. The patient remains in the intensive care unit intubated on a mechanical ventilator. On today's evaluation, the patient remains on propofol and is running at a dose of 40 mcg/kg/m and the patient is also on fentanyl running at 1 mcg/kg/h. He is well rested on a mechanical ventilator. His assist control mode at a rate of 22, tidal volume of 500, FiO2 40% with PEEP of 5. Blood gas showed a pH of 7.44 with a pCO2 of 44 and pO2 of 138. The patient had a follow-up chest x-ray this morning that showed small atelectatic changes in lung bases bilaterally. Orotracheal tube is in a good location. No other significant abnormalities noted. Or G-tube is in place and the patient remains on TPN for nutritional support. The patient is hemodynamically stable on no pressors. The patient was given a dose of Lasix yesterday with adequate diuresis. His sodium level is up to 145 and currently is on D5W at the rate of 50 mL an hour. Electrolytes from today shows a sodium level of 145, potassium level of 4.5, BUN is 21 with a creatinine of 1.1. The previous echo 17.4 with a hemoglobin of 7.6 and a platelet count of 433. LFTs are normal. The patient continues to spike temperature. Antibiotic modifications been done and the patient remains on IV Zosyn, daptomycin and Eraxis was also added by infectious disease. Ileostomy is more functional on today's evaluation. His liquidy output in ileostomy bag. The patient also has SARAI drains and he has left lower quadrant on the left upper quadrant and output is serosanguineous at this point in time. He continues to spike temperature. His most recent T-max is 101.5. He remains in sinus tachyca rdia with a heart rate of 120. Urine output is adequate for now. No pressors. On today's evaluation of 09/18/2022, the patient is being seen for a follow-up. Note that the patient was weaned off the mechanical ventilator and was extubated successfully yesterday. He is off propofol. Is off fentanyl. He was given this point his breathing trial and following that the patient was extubated. Th is morning he is on oxygen at 2 L nasal cannula and his calm and comfortable. In terms of his overall hemodynamics, continues to have some sinus tachycardia. Hemodynamically stable. He is on no pressors. He is still spiking episodes of temperature. His ileostomy is functional and the patient had a high output ileostomy and he produced more than 2 L of ileostomy output over the past 24 hours. NG output is minimal at this point in time. Surgical site was inspected and the patient has some purulent drainage from the anterior edge of the surgical wound. All of the fransisca are in place still. Minimal amount of serous drainage at the edges of the wound. [place] in place. The patient has 2 SARAI drains in his upper and left lower quadrants, output is minimal at this point in time. The patient is CURRENTLY ON FOR NUTRITIONAL SUPPORT. THE PATIENT IS COMING COMBINATION OF ZOSYN and daptomycin and Eraxis as broad-spectrum antibiotic coverage. On his blood work, the patient's echoes at 19. Hemoglobin is at 8.2 and platelet count is at 439. BUN is at 22 and a creatinine of 0.9 and sodium levels of 142. His T-max is 100.4, afebrile this morning. He is still on TPN for nutritional support. Is on Levemir insulin 10 units twice a day and is on Dilaudid for pain control. On today's evaluation of 09/19/2022, the patient is being seen in a follow-up. The patient remains extubated and the patient is currently on oxygen at room air. His calm and comfortable. Been afebrile for the past 24 hours. A repeat CAT scan of the abdomen was done yesterday showed a dilated small bowel with mid small bowel wall edema noted. There may be a component of underlying postop ileus. The same time, there is no collections in the right lower quadrant which could be a postop seroma versus abscess. Fluid along the incision line and this is most likely an area of seroma. The patient has an ileostomy which is functioning at this point in time. There is significant amount of output coming out from the ostomy. NG tube has been removed. The patient is still receiving TPN for nutritional support which is running at the rate of 100 mL an hour. The patient was also started on clear liquid diet. His white cell count has dropped down to 14.5, hemoglobin is at 8.6 and a platelet count was 88. Rest of the electrodes are still pending for now. He is hemodynamically stable. Producing adequate amount of urine output. Fluid balance has been -3.6 L over the past 24 hours and the patient is headed towards a negative fluid balance. Antibiotic coverage included a combination of an axis, Zosyn and daptomycin. He is on Levemir insulin for blood sugar control. Dilaudid for pain control. No diuretics. No pressors. The SARAI drains are still in place. The output is serosanguineous. The incision is draining some serous/cloudy material from his inferior edge and the fransisca are still in place On 09/20/2022, the patient is tolerating clear liquid diet. He remains on TPN for nutritional support. Ileostomy output is still high in the order of 800 mL over the past 8 hours. The surgical one-sided essentially unchanged. The patient still having some cloudy purulent at edge and the amount is minimal, and the patient has a SARAI drains in place output being minimal. Patient is currently on room air oxygen. He remains in sinus tachycardia although this seems to be improving slowly. He is afebrile this morning and the patient has not spiked temperature over the past 48 hours. His antibiotic coverage remains on a combination of Zosyn, and Eraxis, and daptomycin. He remains on Levemir insulin 10 units twice a day is also on sliding scale insulin coverage. Blood work from today shows edematous count of 15.4 and a hemoglobin of 8.1, BUN is 21 with a creatinine of 0.8 and sodium levels of 135. On today's evaluation of 09/21/2022, the patient is awake and alert and the patient is on room air oxygen. Is afebrile and the white cell count is down trending. He is also on a diet and he remains in the intensive care unit. Ileostomy is functional with an increased output and there is a mucosal slough on its surface. Nevertheless, it is functional. SARAI drains are in place. There is also some active drainage from the mid abdominal incision and the cultures were taken yesterday. There is a fluid collection in his right lower quadrant and is being considered for a CT-guided drainage. We'll coordinate this with the general surgeon. Otherwise, is doing well. Is on room air oxygen. His extubated. The risk was at 17.6 with a hemoglobin 7.5 and a platelet count of 346. BUN is 17 with a creatinine of 0.7. Awake and oriented and communicating. He remains in same antibiotic coverage. Objective - Vital Signs Vital signs: Vital Signs Temp 99.2 F 09/21/22 08:00 Pulse 115 H 09/21/22 09:00 Resp 22 09/21/22 09:00 BP 122/79 09/21/22 09:00 Pulse Ox 97 09/21/22 09:00 FiO2 40 09/17/22 10:41 Intake & Output 09/20/22 09/21/22 09/21/22 18:59 06:59 18:59 Intake Total 1976 2574 750 Output Total 2180 1605 720 Balance -203 969 30 Weight 98.4 kg Intake: IV 1663 1543 510 0.9 @ KVO 180 240 60 Anidulafungin 100 mg In 100 100 Sodium Chloride 0.9% 100 ml @ 84 mls/hr IVPB DAILY [facility] Rx#:[id number] CVP 33 3 DAPTOmycin 500 mg In 50 Sodium Chloride 0.9% 50 ml @ 100 mls/hr IVPB Q24HR [facility] Rx#:[id number] Dextrose 5% in Water 1, 50 000 ml @ 50 mls/hr IV . Q20H [facility] Rx#:[id number] Magnesium Sulfate-D5w Pmx 100 1 gm In Dextrose/Water 1 100ml.bag @ 100 mls/hr IVPB ONCE ONE Rx#: [id number] Piperacillin-Tazobactam 3 100 100 .375 gm In Sodium Chloride 0.9% 100 ml @ 25 mls/hr IVPB Q8HR [facility] Rx# :[id number] Potassium Phosphate 3 1100 1200 200 mmol Sodium Acetate 40 meq Calcium Gluconate 1 gm In Amino Acids 5 %/ Dextrose 20 % 1,000 ml @ 100 mls/hr IV .BY DURATION [facility] Rx#: [id number] Sodium Chloride 0.9% 1, 100 000 ml @ 20 mls/hr IV . Q24H [facility] Rx#:[id number] Intake, IV Titration 1031 Amount Potassium Phosphate 3 1031 mmol Sodium Acetate 40 meq Calcium Gluconate 1 gm In Amino Acids 5 %/ Dextrose 20 % 1,000 ml @ 100 mls/hr IV .BY DURATION [facility] Rx#: [id number] Oral 250 240 Tube Feeding 64 Output: Urine 1210 1455 475 Stool 970 150 245 Other: Voiding Method Indwelling Catheter Indwelling Catheter ABP, PAP, CO, CI - Last Documented Arterial Blood Pressure 176/96 - Exam GENERAL EXAM: The patient is awake and alert, 52-year-old male patient The patient also has a left subclavian triple-lumen catheter. Patient is currently on a room air oxygen HEAD: Normocephalic. NOSE: Oral endotracheal and gastric tube secured in place. Clear with pink turbinates. THROAT: No erythema or exudates. NECK: Left triple-lumen catheter secured in place. No masses, no JVD. CHEST: No chest wall deformity. LUNGS: Equal air entry with bilateral scattered rhonchi. CVS: S1 and S2 normal with no audible murmur, regular rhythm. ABDOMEN: Midline incision this showing some purulent drainage minutes inferior edge which can be no doubt upon palpation. No direct tenderness. No rebound tenderness. No guarding., [address] SPINE: No scoliosis or deformity SKIN: No rashes CENTRAL NERVOUS SYSTEneurologically, awake and alert and communicating.REMITIES: Right radial arterial line secured in place. There is no peripheral edema. No clubbing, no cyanosis. Peripheral pulses are intact. - Labs CBC & Chem 7: 09/21/22 04:35 09/21/22 04:35 Labs: Abnormal Lab Results - Last 24 Hours (Table) 09/20/22 09/20/22 09/20/22 Range/Units 11:55 16:39 19:55 WBC (3.8-10.6) k/uL RBC (4.30-5.90) m/uL Hgb (13.0-17.5) gm/dL Hct (39.0-53.0) % RDW (11.5-15.5) % Neutrophils # (1.3-7.7) k/uL Lymphocytes # (1.0-4.8) k/uL Sodium (137-145) mmol/L Glucose (74-99) mg/dL POC Glucose (mg/dL) 149 H 161 H 129 H (70-110) mg/dL Calcium (8.4-10.2) mg/dL 09/21/22 09/21/22 09/21/22 Range/Units 04:35 04:35 06:13 WBC 17.6 H (3.8-10.6) k/uL RBC 2.68 L (4.30-5.90) m/uL Hgb 7.5 L (13.0-17.5) gm/dL Hct 22.4 L (39.0-53.0) % RDW 16.0 H (11.5-15.5) % Neutrophils # 15.6 H (1.3-7.7) k/uL Lymphocytes # 0.7 L (1.0-4.8) k/uL Sodium 135 L (137-145) mmol/L Glucose 137 H (74-99) mg/dL POC Glucose (mg/dL) 168 H (70-110) mg/dL Calcium 7.9 L (8.4-10.2) mg/dL Microbiology - Last 24 Hours (Table) 09/20/22 10:05 Gram Stain - Preliminary Abdomen Assessment and Plan Plan: Acute pneumoperitoneum, secondary to perforated colonic diverticulum and transverse colon. Status post robotic-assisted laparoscopy with extensive lysis of adhesions, right hemicolectomy and primary anastomosis and drainage of abdominal abscess abdominal peritoneal lavage and placement of SARAI drain as well as incisional wound VAC system on 09/04/2022. Follow-up computed tomography scan 09/10/2022 revealed loculated and non-loculated perihepatic collections some of which demonstrate mildly thickened almeida with internal foci of air. Hepatic abscesses are not excluded. Persistent dilatation of the small bowel small bowel wall thickening and inflammatory change in the interval colonic anastomotic site. He did undergo a CT-guided catheter drainage of the liver abscess on 09/11/2022. Abdominal wound dehiscence with stool and air leak through the incision on 09/14/2022. He was returned to the operating room that same day and had undergone an exploratory laparotomy and extensive lysis of adhesions, resection of ilealcolic anastomosis, drainage of perihepatic loculated abscess with removal of CT-guided drain, small bowel resection for small bowel necrosis/perforation, placement of ileostomy, abdominal washout with 7 L of normal saline, debridement of abdominal wall midline incision, patient of the Moiz-Hanley in the right anterior lateral hepatic space, placement of Moiz- Han[place] drain in the right pelvis, quarter-inch [place] drain in the subcutaneous tissue midline incision and placement of Provena incisional wound VAC system. The ileostomy is fully functional and the patient is receiving TPN for nutritional support. Repeat CAT scan of the abdomen was done yesterday and it shows some dilatation of the small bowel with small bowel edema. There are some collections within the right lower quadrant. Perihepatic abscesses show significant interval improvement and the rest of the findings may be consistent with either postoperative seroma versus abscesses. The patient also has postoperative seroma along the incision and no organizing abscess is seen based on the most recent CAT scan. Possibility of wound infection cannot be completely ruled out and the patient continues to have some purulent drainage from the wound edge. The case was discussed with general surgery and the patient may be considered for another percutaneous drainage of the right lower quadrant fluid collection. TPN for nutritional support and the patient was able to gradually advance his oral intake Episodic fever, rule out underlying ongoing intra-abdominal infection/abscess formation. The CAT scan of the abdomen was repeated on 09/18/2022 and the findings were essentially reviewed and noted. Minimal amount of purulent drainage can be from the inferior edge of the wound. [place] are all in place. The patient is currently on a combination of Zosyn, daptomycin and Eraxis. The repeat cultures were sent and is also still pending for now and the patient remains on broad-spectrum antibiotics. Hemodynamically stable. The patient is currently afebrile and the patient has been afebrile over the past 24 hours. The most recent cultures indicated a E. coli in the sputum which is sensitive to Zosyn. The patient remains afebrile. Cultures will be obtained from the wound drainage. The cultures were obtained yesterday and the results are still pending for now. Severe abdominal sepsis secondary to E. coli, pseudomonas aeruginosa, enterococcus faecium. Remains on daptomycin and Zosyn. Septic shock secondary to above, recovered and the patient is normotensive Acute hypoxemic respiratory failure secondary to above currently requiring mechanical ventilation , extubated and patient is currently on room air oxygen Leukocytosis secondary to above, white cell count remains elevated, improving Sinus tachycardia secondary to sepsis, continues to be sinus tachycardia, improving Acute kidney injury, improving and the renal function is improved since yesterday. Renal function continues to improve and the patient is producing adequate amount of urine output Acute lactic acidosis secondary to sepsis, recovered History of colon cancer status post robotic-assisted laparoscopic extended right hemicolectomy on 08/29/2022 Intra-abdominal abscess, secondary to above Abdominal ascites, secondary to above, please refer to the most recent CAT scan of the abdomen that was done at 09/18/2022 History of sarcoidosis Plan: Keep the patient on room air Incentive spirometer Ileostomy is functional and output is quite high Continue TPN for today and should be considered to stop the TPN within next 24 hours is under the patient is able to maintain his oral intake Continue Zosyn, daptomycin and Eraxis Obtain cultures from the surgical wound site and this was done yesterday and consider prescription is drainage of the right lower quadrant fluid collection via interventional radiology monitor the CVP, IV fluids to KVO Monitor fever pattern, currently afebrile Monitor the output from the ileostomy and the drains General surgery follow-up No pressors Advance diet as tolerated Prognosis is guarded We will continue to follow
[2022-09-21 11:42] LABS: Glucose,Whole Blood 176 mg/dL (70-110)
[2022-09-21] MEDS: METOPROLOL TARTRATE 5 MG/5 ML VIAL IVP SCH (12:57)
--- NOTE | 2022-09-21 15:37 | US ---
EXAMINATION TYPE: US venous doppler duplex LE BI DATE OF EXAM: 09/21/2022 3:29 PM COMPARISON: NONE CLINICAL INDICATION: Male, 52 years old with history of DVT; SIDE PERFORMED: Bilateral TECHNIQUE: The lower extremity deep venous system is examined utilizing real time linear array sonog barney with graded compression, doppler sonography and color-flow sonography. VESSELS IMAGED: Common Femoral Vein Deep Femoral Vein Greater Saphenous Vein * Femoral Vein Popliteal Vein Small Saphenous Vein * Proximal Calf Veins (* superficial vessels) Right Leg: Negative for DVT Left Leg: Negative for DVT IMPRESSION: Grayscale, color doppler, spectral doppler imaging performed of the deep veins of the lo wer extremities. There is normal flow, compressibility, vascular waveforms.
[2022-09-21 16:59] LABS: Glucose,Whole Blood 159 mg/dL (70-110)
[2022-09-21] MEDS ORDERED: METOPROLOL TARTRATE 5 MG/5 ML VIAL IVP SCH (18:00)
[2022-09-21] MEDS: NOREPINEPHRINE 8 MG in SODIUM CHLORIDE 0.9% 250 ML IV SCH (18:22)
[2022-09-21] MEDS: METOPROLOL TARTRATE 50 MG TAB PO SCH (20:21)
[2022-09-21 20:29] LABS: Glucose,Whole Blood 158 mg/dL (70-110)
--- NOTE | 2022-09-21 20:34 | P.PN ---
Subjective Progress Note Date: 09/21/22 CHIEF COMPLAINT: Pneumoperitoneum, abdominal pain HISTORY OF PRESENT ILLNESS: The patient is a 52-year-old male status post right hemicolectomy for colon cancer 08/29/2022. He was discharged from the hospital without sequelae 08/31/2022 and returned to the hospital 09/03/2022 for pneumoperitoneum. He is status post exploratory laparotomy, lysis of adhesions, evacuation of intra-abdominal abscess, right hemicolectomy for resection of perforated transverse colon diverticulum, 09/04/2022. He then developed acute abdominal pain with suspected bowel perforation. He was taken back to the operating room 09/13/2022 with ileostomy, drainage of perihepatic abscess and extensive lysis of adhesions with small bowel resection. He has low appetite. He is on TPN. No further moderate fevers. Ileostomy output is decreasing. ROS: No new chest pain. T-max 99.9F PHYSICAL EXAM: VITAL SIGNS: Reviewed CONSTITUTIONAL: Well developed and in no acute distress. EYES: Conjuctivae without sclera icterus. Extraocular movements grossly intact. HEAD, EARS, NOSE, THROAT: Moist buccal mucosa. Head is atraumatic, normocephalic. Hears conversational speech. RESPIRATORY:abored breathing CARDIOVASCULAR: Palpable 2+ radial pulses. Tachycardic. ABDOMEN: Ileostomy functioning and beefy red. Mucosal slough off and viable. Midline incision with decreased purulent drainage. MUSCULOSKELETAL: No gross deformity of the lower extremities noted. No clubbing. No cyanosis. SKIN: Good skin turgor. Well perfused. NEUROLOGIC: Cranial nerves II through XII grossly intact. No focal or lateralizing signs. PSYCH: Appropriate affect. Alert and oriented to person, place and time. CLINICAL LABS: Reviewed. WBC trending up from 14.5 to 15.4, now 17.6 ASSESSMENT: 1. Pneumoperitoneum due to perforated diverticulum 2. Tachycardia with fevers consistent with sepsis 3. Acute kidney injury, failure due to severe sepsis 4. Colon cancer status post resection 5. Liver abscess, para hepatic 6. Incisional wound abscess 7. Perforated anastomosis, acute 8. Ileus ruled out. PLAN: 1. Recommend CT guided drainage. 2. Oral lopressor 50 mg BID pending stable blood pressure 3. Continue IV antibiotics. 4. Disposition pending resolution of leukocytosis, tachycardia, ileostomy management including tolerating diet. Objective - Vital Signs Vital signs: Vital Signs Temp 98.8 F 09/21/22 16:00 Pulse 110 H 09/21/22 19:00 Resp 12 09/21/22 19:00 BP 133/93 09/21/22 19:00 Pulse Ox 97 09/21/22 19:00 FiO2 40 09/17/22 10:41 Intake & Output 09/21/22 09/21/22 09/22/22 06:59 18:59 06:59 Intake Total 2574 2370 Output Total 1605 3465 Balance 969 -1095 Weight 98.4 kg Intake: IV 1543 1890 0.9 @ KVO 240 240 Anidulafungin 100 mg In 100 Sodium Chloride 0.9% 100 ml @ 84 mls/hr IVPB DAILY [facility] Rx#:[id number] CVP 3 DAPTOmycin 500 mg In 50 Sodium Chloride 0.9% 50 ml @ 100 mls/hr IVPB Q24HR [facility] Rx#:[id number] Magnesium Sulfate-D5w Pmx 100 1 gm In Dextrose/Water 1 100ml.bag @ 100 mls/hr IVPB ONCE ONE Rx#: [id number] Piperacillin-Tazobactam 3 200 .375 gm In Sodium Chloride 0.9% 100 ml @ 25 mls/hr IVPB Q8HR [facility] Rx# :[id number] Potassium Phosphate 3 1200 1300 mmol Sodium Acetate 40 meq Calcium Gluconate 1 gm In Amino Acids 5 %/ Dextrose 20 % 1,000 ml @ 100 mls/hr IV .BY DURATION [facility] Rx#: [id number] Intake, IV Titration 1031 Amount Potassium Phosphate 3 1031 mmol Sodium Acetate 40 meq Calcium Gluconate 1 gm In Amino Acids 5 %/ Dextrose 20 % 1,000 ml @ 100 mls/hr IV .BY DURATION [facility] Rx#: [id number] Oral 480 Output: Urine 1455 1800 Stool 150 1665 Other: Voiding Method Indwelling Catheter Indwelling Catheter ABP, PAP, CO, CI - Last Documented Arterial Blood Pressure 176/96 - Labs CBC & Chem 7: 09/21/22 04:35 09/21/22 04:35 Labs: Abnormal Lab Results - Last 24 Hours (Table) 09/21/22 09/21/22 09/21/22 Range/Units 04:35 04:35 06:13 WBC 17.6 H (3.8-10.6) k/uL RBC 2.68 L (4.30-5.90) m/uL Hgb 7.5 L (13.0-17.5) gm/dL Hct 22.4 L (39.0-53.0) % RDW 16.0 H (11.5-15.5) % Neutrophils # 15.6 H (1.3-7.7) k/uL Lymphocytes # 0.7 L (1.0-4.8) k/uL Sodium 135 L (137-145) mmol/L Glucose 137 H (74-99) mg/dL POC Glucose (mg/dL) 168 H (70-110) mg/dL Calcium 7.9 L (8.4-10.2) mg/dL 09/21/22 09/21/22 09/21/22 Range/Units 11:40 16:58 20:27 WBC (3.8-10.6) k/uL RBC (4.30-5.90) m/uL Hgb (13.0-17.5) gm/dL Hct (39.0-53.0) % RDW (11.5-15.5) % Neutrophils # (1.3-7.7) k/uL Lymphocytes # (1.0-4.8) k/uL Sodium (137-145) mmol/L Glucose (74-99) mg/dL POC Glucose (mg/dL) 176 H 159 H 158 H (70-110) mg/dL Calcium (8.4-10.2) mg/dL Microbiology - Last 24 Hours (Table) 09/20/22 10:05 Gram Stain - Preliminary Abdomen Wound Culture - Preliminary Gram Neg Bacilli
--- NOTE | 2022-09-21 20:39 | US ---
"EXAMINATION TYPE: US venous doppler duplex UE BI DATE OF EXAM: 09/21/2022 COMPARISON: NONE CLINICAL INDICATION: Male, 52 years old with history of DVT; No hx of DVT. SIDE PERFORMED: Bilateral Right Arm: No evidence of DVT. Cephalic vein not seen. Left Arm: Appears positive for DVT, thrombus seen within left subclavian and axillary vein. Thrombus also seen in basilic vein surrounding PICC and within the cephalic vein at the forearm level. Exam is limited, portions of brachial veins and medial subclavian vein were not seen due to bandages. IMPRESSION: 1. Positive deep vein thrombosis within the left subclavian and axillary veins. 2. Superficial thrombophlebitis seen in the left basilic and cephalic veins surrounding the patient' s PICC. A Yellow level critical message alert has been initiated for Sallie Oconnor MD via the [facility] | Critical Results System on 09/21/2022 8:37 PM. This message alert has been sent to Sallie Calvillo MD via the preferences provided by the clinician for the receipt of Radiology Critical Findi ngs. Message ID [id number]."
--- NOTE | 2022-09-21 21:56 | P.PN ---
Subjective This is a 52 year old male monitored in the intensive care unit postoperative day #4 lysis of adhesions and right hemicolectomy due to bowel perforation. Patient had end to end anastamosis. Has not had bowel movement, had KUB xray today showing multiple dilated small bowel loops possible ileus vs. obstruction. General surgery recommending patient to be NPO at this time. Heart rate remains elevated in the 120s and patient switched to IV lopressor. Remains on IV daptomycin and IV zosyn for positive peritoneal fluid culture with E. Coli, enterococcus and pseudomonas. Blood culture negative so far. Patient remains on D5 water at 100 mls/hr, sodium is slightly improved today down to 146. Continues on TPN, NG tube has been discontinued. Accuchecks switched to Q6h and small dose of levemir HS has been added. SARAI drain in place with serous drainage. Patient febrile today up to 101.9, encouraged to continue with incentive spirometer. Patient has wound vac in place to continuous suction, plan to ambulate around the room and up in the chair today. 09/09/2022 Patient is evaluated today in the ICU resting in bed. Alert x 3. Asking about discharge. Repeat blood culture is pending patient remains on IV antibiotics. White count up to 19.7 today. Patient reports BM yesterday and passing some gas today. Abdomen is more distended. Surgery recommending NG tube today. Patient remains NPO. Midline incisional wound vac in place. Patient remains with fever, using incentive spirometer reaching 1200. Continues on TPN. 09/10/2022 Patient remains in the intensive care unit. Patient continues to be NPO. 3 attempts were made to pass NG tube and were unsuccessful. Patient did have 2 BMs yesterday, abdomen remains significantly distended. Repeat abdominal pelvis CT reveals loculated and nonloculated perihepatic collections some of which demonst rate mildly thickened almeida with internal foci of air. Perihepatic abscesses are not excluded. Persistent dilation of small bowel with small bowel wall thickening and inflammatory change at the enterocolonic anastomotic site. Persistent postoperative ileus and/or obstructive changes not excluded. Adjacent drain is in place. Contrast does not opacify the anastomotic site and therefore leak is difficult to evaluate or exclude. Small amt of free air persists improved from prior study. White count 18.3 today, electrolytes are normalized and blood glucose improved to 115. Patient remains on TPN. Blood culture remains negative. Remains on IV zosyn and IV daptomycin. Temp of 100.4 and remains tachy cardic 121, blood pressure stable at 131/94. 09/11/2022 Patient is evaluated today in the intensive care unit. Remains tachycardic and T-Max of 100.7 overnight. Scheduled to undergo drainage and placement of drainage tube to the perihepatic abscess noted on CT imaging with IR today. White count down to 16.0 today. Continues on IV daptoymcin and IV vancomycin. Per nursing did have a small BM overnight. 09/12/2022 Patient evaluated today in the intensive care unit. Underwent CT guided abscess drainage with 100 mls of purulent drainage and also had midline fransisca removed at the top of incision with some purulent drainage. Patients white count is down to 12.8 today. Kidney function stable, sodium 135 today. Patient has been cleared to start diet, having small BMs. Metoprolol will be changed to oral. Fever is improving. Cultures are pending from the abscess and ID is following closely. 09/13/2022 Patient continues to be monitored closely in the intensive care unit. Patient continues with significant tachycardia not improving with metoprolol and continues with abdominal distention. Cardiology was placed on consultation for the tachycardia and patient has been transitioned back to IV lopressor. Wound cultures from the CT guided are showing gram negative bacilli. This morning per nursing the abdomen was more distended and patient had felt a popping sensation with evidence of leaking of brown colored drainage from the surgical incision and the drainage bag. The surgical incision was opened yesterday at the bedside by surgery. Patient was taken for emergent exploratory laporotomy. White count is 17.9 today, sodium 134, potassium 5.0. Kidney function remains stable. Patient has been continued to be NPO no NG tube present. Labs and vitals reviewed. 09/14/2022 Patient is evaluated today he is currently in the intensive care unit intubated and sedated he is on combination of nimbex and propofol. Patient is currently on the mechanical ventilator with 40% FiO2. Patient is also requiring levophed and vasopression. Patient continues on IV daptomycin and IV zosyn. The wound culture shows E.Coli. Patient underwent extensive exploratory laporotomy yesterday with lysis of adhesions, resection of the ileocolic anastamosis due to anastomotic leak, small bowel resection for small bowel necrosis/peforation with placement of ileostomy. Patient had nataliia-stone drain x 2 placed and alpa drain placed. Abdomen was closed with a wound vac. Temp is T-max 100.4 today. Labs rev eal white count of 20.1, hgb 9.3, sodium 131, potassium at 6.6 and 5.9, BUN 32, creatinine 2.15, blood glucose 394, calcium 6.4, magnesium 1.4. Patient received IV magnesium, IV gluconate, and IV insulin humulin N. 09/15/2022 Patient is seen in a follow-up continues to be in the ICU with multiple medical consultations following. Patient continues on mechanical ventilation with an FiO2 of 40% and PEEP is 5. Patient is maintained on IV antibiotics in the form of dapto and Zosyn with Infectious Disease Following Closely and Culture Showing E. coli with Multiple Sensitivities. Patient Continues to Have Fevers and White Count Elevated Slightly Trending down to 18 Today. Recent Ileostomy Placed with No Function at This Time and Patient Is Maintained on TPN. Patient Continues with Drains along with a Wound VAC of the Abdomen. Hemoglobin Trending down and upon Stopping Currently Would Recommend Monitoring Closely and Transfuse of 7 or Less. Nephrology Following As Well This Patient's Kidney Functions Worsened Although Appear Better Today. Patient Remains Tachycardic on the Monitor and Troponins Have Been Negative. Recommend Continuing with Accu-Cheks per Protocol and Tight Glycemic Control. 09/16/2022 Patient is seen and evaluated in follow-up today and continues to remain on mechanical ventilation maintained on fentanyl and propofol under sedation. FiO2 is 40% with a PEEP of 5. Hemoglobin critically low at 6.3 and receiving a unit of PRBCs. Would recommend a dose of Lasix after unit of blood. Patient's overall swelling showing some improvement on chest x-ray continues to so show some stable pleural effusions. No bowel activity per nursing staff noted as of yet in the ostomy. Kidney functions are trending down. Patient is continuing to have temps and would recommend repeat blood cultures, sputum culture, urine culture. 09/17/2022 Patient is seen in follow-up this morning continues to be in the ICU on mechanical ventilation and undergoing sedation holidays. FiO2 is 40% with a PEEP of 5. Per nursing staff patient is following commands on sedation holiday but not quite ready for weaning per pulmonary manager testing. Patient's hemoglobin is improved today at 7.6 status post 1 unit of PRBC yesterday. White count remains slightly elevated at 17.4 and patient continues to have fevers. Infectious disease following closely and repeat blood cultures along with sputum culture have all been sent. Initial culture showing some E. coli and patient is maintained on IV antibiotics in the form of daptomycin, Eraxis, and Zosyn as well awaiting finalized cultures. Patient is noted to have some loose liquid stool noted in the ostomy and is maintained on TPN. Patient is currently off pressor support as well. Prognosis Remains guarded. 09/18/2022 Patient is seen and evaluated in follow-up today continues to be in the ICU was recently extubated yesterday successfully currently maintained on 3 L via nasal cannula. Patient is off pressor support and blood pressure is mildly hypertensive and patient continues to be tacky. Patient most recent fever was last night of 100.4. Patient is maintained on IV antibiotics with infectious disease following and preliminary sputum cultures repeated show gram-negative an initial wound culture showing E. coli along with Pseudomonas and enterococcus. Patient had copious amounts of drainage from ostomy per nursing staff with general surgery is admitting and repeat CT abdomen is ordered and pending at th is time. C. diff sample also being sent which is pending at this time. Patient is maintained on TPN and will continue on strict nothing by mouth per surgery recommendations until Dr. Helton advances. WBC is 19.2 and hemoglobin is 8.2, sodium 142 with a potassium of 3.9 and current creatinine is 0.94. Magnesium is 2.1. Chest x-ray today shows bilateral infiltrates and small pleural effusions are stable. 09/19/2022 Patient admitted to the hospital for perforated colonic diverticulum after recent right hemicolectomy for his colon cancer and discharge home. Patient status post laparoscopic right hemicolectomy and primary anastomosis and drainage of abscess. This has been scanning of the abdominal and yesterday showing right lower quadrant seroma on abscesses and dilated small bowel which could be ileus versus obstruction. The patient with evidence of positive cultures including sputum with E. coli on wound culture with E. coli HER FLUID WITH E. COLI AND PSEUDOMONAS. PATIENT On MULTIPLE ANTIBIOTIC INCLUDING Eraxis, daptomycin and Zosyn 09/20/2029 Patient improving slowly and gradually Patient is more awake and relaxed, no new complaints Just tolerating diet and will be advanced as per surgery team No bowel movement but had high output ileostomy in the right lower quadrant still slightly tachycardic and tachypneic TPN and place 09/21/2022 Patient awake alert. He somewhat tolerates diet between 25 and 75%, it looks like preventing him from eating well he is infection and abdominal sepsis going unrelated to his perforated viscus on admission. Also he has high output RLQ related to infection as well. He has low-grade temperature 99.9 today and he is a broad-spectrum antibiotic of daptomycin, Zosyn and Eraxis. He has multiple cultures positive for E. coli, recent wound culture also growing gram-negative bacilli. TPN is in place, Cruz catheter in place Objective - Vital Signs Vital signs: Vital Signs Temp 98.7 F 09/21/22 12:00 Pulse 115 H 09/21/22 12:00 Resp 22 09/21/22 12:00 BP 130/94 09/21/22 12:00 Pulse Ox 99 09/21/22 12:00 FiO2 40 09/17/22 10:41 Intake & Output 09/20/22 09/21/22 09/21/22 18:59 06:59 18:59 Intake Total 1977 2574 910 Output Total 2180 1605 1500 Balance -203 969 -590 Weight 98.4 kg Intake: IV 1663 1543 550 0.9 @ KVO 180 240 100 Anidulafungin 100 mg In 100 100 Sodium Chloride 0.9% 100 ml @ 84 mls/hr IVPB DAILY [facility] Rx#:[id number] CVP 33 3 DAPTOmycin 500 mg In 50 Sodium Chloride 0.9% 50 ml @ 100 mls/hr IVPB Q24HR [facility] Rx#:[id number] Dextrose 5% in Water 1, 50 000 ml @ 50 mls/hr IV . Q20H [facility] Rx#:[id number] Magnesium Sulfate-D5w Pmx 100 1 gm In Dextrose/Water 1 100ml.bag @ 100 mls/hr IVPB ONCE ONE Rx#: [id number] Piperacillin-Tazobactam 3 100 100 .375 gm In Sodium Chloride 0.9% 100 ml @ 25 mls/hr IVPB Q8HR [facility] Rx# :[id number] Potassium Phosphate 3 1100 1200 200 mmol Sodium Acetate 40 meq Calcium Gluconate 1 gm In Amino Acids 5 %/ Dextrose 20 % 1,000 ml @ 100 mls/hr IV .BY DURATION [facility] Rx#: [id number] Sodium Chloride 0.9% 1, 100 000 ml @ 20 mls/hr IV . Q24H [facility] Rx#:[id number] Intake, IV Titration 1031 Amount Potassium Phosphate 3 1031 mmol Sodium Acetate 40 meq Calcium Gluconate 1 gm In Amino Acids 5 %/ Dextrose 20 % 1,000 ml @ 100 mls/hr IV .BY DURATION [facility] Rx#: [id number] Oral 250 360 Tube Feeding 64 Output: Urine 1210 1455 860 Stool 970 150 640 Other: Voiding Method Indwelling Catheter Indwelling Catheter ABP, PAP, CO, CI - Last Documented Arterial Blood Pressure 176/96 - Exam -GENERAL: The patient is drowsy, not in any acute distress. Well developed, well nourished. HEENT: Pupils are round and equally reacting to light. EOMI. No scleral icterus. No conjunctival pallor. Normocephalic, atraumatic. No pharyngeal erythema. No thyromegaly. CARDIOVASCULAR: S1 and S2 present. No murmurs, rubs, or gallops. PULMONARY: Chest is clear to auscultation, no wheezing . no crackles. -ABDOMEN: Soft, nontender, nondistended, normoactive bowel sounds. No palpable organomegaly. Healing surgical wound was dressed in a Place, Cruz catheter in place MUSCULOSKELETAL: No joint swelling or deformity. EXTREMITIES: No cyanosis, clubbing, or pedal edema. NEUROLOGICAL: Gross neurological examination did not reveal any focal deficits. SKIN: No rashes. no petechiae. - Labs CBC & Chem 7: 09/21/22 04:35 09/21/22 04:35 Labs: Abnormal Lab Results - Last 24 Hours (Table) 09/20/22 09/20/22 09/21/22 Range/Units 16:39 19:55 04:35 WBC (3.8-10.6) k/uL RBC (4.30-5.90) m/uL Hgb (13.0-17.5) gm/dL Hct (39.0-53.0) % RDW (11.5-15.5) % Neutrophils # (1.3-7.7) k/uL Lymphocytes # (1.0-4.8) k/uL Sodium 135 L (137-145) mmol/L Glucose 137 H (74-99) mg/dL POC Glucose (mg/dL) 161 H 129 H (70-110) mg/dL Calcium 7.9 L (8.4-10.2) mg/dL 09/21/22 09/21/22 09/21/22 Range/Units 04:35 06:13 11:40 WBC 17.6 H (3.8-10.6) k/uL RBC 2.68 L (4.30-5.90) m/uL Hgb 7.5 L (13.0-17.5) gm/dL Hct 22.4 L (39.0-53.0) % RDW 16.0 H (11.5-15.5) % Neutrophils # 15.6 H (1.3-7.7) k/uL Lymphocytes # 0.7 L (1.0-4.8) k/uL Sodium (137-145) mmol/L Glucose (74-99) mg/dL POC Glucose (mg/dL) 168 H 176 H (70-110) mg/dL Calcium (8.4-10.2) mg/dL Microbiology - Last 24 Hours (Table) 09/20/22 10:05 Gram Stain - Preliminary Abdomen Wound Culture - Preliminary Gram Neg Bacilli Assessment and Plan Assessment: Perforated colonic diverticulum of the transverse: With recent history of laparoscopic hemicolectomy and primary anastomosis for colon cancer Neurologic small bowel could be ileus versus obstruction Right lower quadrant seroma versus abscess Abdominal sepsis secondary to above Anemia Leukocytosis Plan: Continue with antibiotic axis, daptomycin and Zosyn Encourage diet Continue TPN Multiple consultants including critical care pulmonary, infectious disease and surgery team Continue with Levemir insulin Labs and medication were reviewed.. Continue same treatment. Continue with symptomatic treatment. Resume home medication. Monitor labs and vitals. DVT and GI prophylaxis. Further recommendations as per clinical course of the patient DVT prophylaxis: Subcutaneous heparin GI Prophylaxis: Ppi Prognosis is guarded
[2022-09-21 22:17] LABS: Glucose,Whole Blood 152 mg/dL (70-110)
[2022-09-22] MEDS: [UNRECOGNIZED DRUG - REMARK] IV SCH ×20 (00:58→22:38)
[2022-09-22] MEDS: HYDROmorphone 1 MG/ML 1 ML SYRINGE IVP PRN ×7 (01:03→20:57)
[2022-09-22 04:17] LABS: Anisocytosis Slight; Basophils % (A) 0 %; Eosinophils # (A) 0.5 k/uL (0-0.7); Eosinophils % (A) 2 %; HGB 8.1 gm/dL (13.0-17.5); Hypochromasia Slight; Lymphocytes # (A) 0.8 k/uL (1.0-4.8); Lymphocytes % (A) 4 %; MCH 27.4 pg (25.0-35.0); MCHC 32.5 g/dL (31.0-37.0); MCV 84.3 fL (80.0-100.0); Mean Platelet Volume 8.5; Monocytes # (A) 0.7 k/uL (0-1.0); Monocytes % (A) 4 %; Neutrophils # (A) 17.1 k/uL (1.3-7.7); Neutrophils % (A) 89 %; Platelet Count 377 k/uL (150-450); RBC 2.97 m/uL (4.30-5.90); RDW 16.4 % (11.5-15.5); WBC 19.3 k/uL (3.8-10.6)
[2022-09-22 05:10] LABS: African American GFR (CKD) >90 (>60 ml/min/1.73 sqM); Anion Gap 7 mmol/L; Blood Urea Nitrogen 17 mg/dL (9-20); Calcium 7.9 mg/dL (8.4-10.2); Carbon Dioxide 21 mmol/L (22-30); Chloride 105 mmol/L (98-107); Glucose 166 mg/dL (74-99); Magnesium 1.7 mg/dL (1.6-2.3); Non-African American GFR(CKD) >90 (>60 ml/min/1.73 sqM); Potassium 3.7 mmol/L (3.5-5.1); Sodium 133 mmol/L (137-145)
[2022-09-22] MEDS ORDERED: MAGNESIUM SULFATE-D5W PMX 1 GM in DEXTROSE/WATER 1 100ML.BAG IVPB ONE (05:12)
[2022-09-22] MEDS ORDERED: POTASSIUM CHLORIDE ER 20 MEQ TAB.ER PO SCH (06:00)
[2022-09-22] MEDS: INSULIN DETEMIR (LEVEMIR) 100 UNIT/ML SYR SQ SCH ×2 (06:48→20:57)
[2022-09-22] MEDS: INSULIN ASPART (NovoLOG) 100 UNIT/ML VIAL SQ SCH ×8 (06:48→20:57)
[2022-09-22 06:49] LABS: Glucose,Whole Blood 199 mg/dL (70-110)
[2022-09-22] MEDS: METOPROLOL TARTRATE 5 MG/5 ML VIAL IVP SCH (07:56)
[2022-09-22] MEDS: IPRATROPIUM-ALBUTEROL 3 ML NEB INHALATION SCH ×4 (08:13→20:17)
[2022-09-22] MEDS: ANIDULAFUNGIN 100 MG in SODIUM CHLORIDE 0.9% 100 ML IVPB SCH (08:18)
[2022-09-22] MEDS: DAPTOmycin 500 MG in SODIUM CHLORIDE 0.9% 50 ML IVPB SCH (08:18)
[2022-09-22] MEDS: HEPARIN SODIUM,PORCINE/PF 5,000 UNIT/0.5 ML SYRINGE SQ SCH (08:18)
[2022-09-22] MEDS: PIPERACILLIN-TAZOBACTAM 3.375 GM in SODIUM CHLORIDE 0.9% 100 ML IVPB SCH (08:18)
[2022-09-22] MEDS: METOPROLOL TARTRATE 50 MG TAB PO SCH ×2 (08:19→21:00)
[2022-09-22] MEDS: PANTOPRAZOLE 40 MG/10 ML VIAL IV SCH (08:19)
[2022-09-22] MEDS ORDERED: HEPARIN SODIUM 1,000 UN/ML (10ML VL) IV ONE (09:30)
[2022-09-22] MEDS: HEPARIN SOD,PORK IN 0.45% NACL 25,000 UNIT in 0.45% NACL 1 250ML.BAG IV SCH (09:44)
[2022-09-22 09:52] LABS: Partial Thromboplastin Time 28.5 sec (22.0-30.0); Prothrombin Time 10.6 sec (9.0-12.0)
[2022-09-22] MEDS: SODIUM CHLORIDE 0.9% 1,000 ML IV SCH (10:01)
[2022-09-22 11:32] LABS: Glucose,Whole Blood 142 mg/dL (70-110)
--- NOTE | 2022-09-22 12:01 | P.PN ---
Subjective Progress Note Date: 09/22/22 CHIEF COMPLAINT: Pneumoperitoneum, abdominal pain HISTORY OF PRESENT ILLNESS: The patient is a 52-year-old male status post right hemicolectomy for colon cancer 08/29/2022. He was discharged from the hospital without sequelae 08/31/2022 and returned to the hospital 09/03/2022 for pneumoperitoneum. He is status post exploratory laparotomy, lysis of adhesions, evacuation of intra-abdominal abscess, right hemicolectomy for resection of perforated transverse colon diverticulum, 09/04/2022. He then developed acute abdominal pain with suspected bowel perforation. He was taken back to the operating room 09/13/2022 with ileostomy, drainage of perihepatic abscess and extensive lysis of adhesions with small bowel resection. Patient remains in the ICU. Patient has decreased appetite. Pain is contro lled. Initially IR was consulted for CT-guided drainage of right lower quadrant abdominal fluid. However no IR service is available this week. Patient also found to have a upper extremity left DVT and has been started on IV heparin. Afebrile. WBC is up from 17.6-19.3 Hgb is 8.1 platelets 377 sodium is 133 potassium 3.7 creatinine 0.66 magnesium 1.7 PHYSICAL EXAM: VITAL SIGNS: Reviewed GENERAL: Well-developed in no acute distress. HEENT: No sclera icterus. Extraocular movements grossly intact. Moist buccal mucosa. Head is atraumatic, normocephalic. No nasal drainage. NECK: Supple without lymphadenopathy. CHEST: Non-labored respirations and equal bilateral excursions. CARDIOVASCULAR: Palpable 2+ radial pulses. ABDOMEN: distended. Ileostomy with stool output. Leal Stoma. Purulent incisional drainage at the distal aspect of incision decreased. Don drain noted at the distal and proximal aspect. SARAI drains are serous in color. MUSCULOSKELETAL: No clubbing or cyanosis. NEUROLOGIC: No focal or lateralizing signs. Cranial nerves II through XII grossly intact. PSYCH: Appropriate affect. Alert and oriented to person, place and time. SKIN: Well perfused. Good skin turgor. ASSESSMENT: 1. Pneumoperitoneum due to perforated diverticulum 2. Tachycardia with fevers consistent with sepsis 3. Acute kidney injury, failure due to severe sepsis 4. Colon cancer status post resection 5. Liver abscess, para hepatic 6. Incisional wound abscess 7. Perforated anastomosis, acute 8. Fluid along the incision may reflect postsurgical seroma 9. Right lower quadrant fluid collection 10. DVT left arm PLAN: -There is no IR service available for CT-guided drainage of the right lower quadrant fluid collection -Continue antibiotics -Continue to monitor -Continue low fiber diet -Continue local wound care with daily chlorhexidine cleaning of incision. Change dressing as needed -IV heparin for DVT of left arm -Continue ICU management -Continue supportive care -Continue TPN for nutrition support -Continue pain management -DVT prophylaxis subcu heparin Physician Trouble Tracer note has been reviewed by physician. Signing provider agrees with the documented findings, assessment, and plan of care. Objective - Vital Signs Vital signs: Vital Signs Temp 98.8 F 09/22/22 08:00 Pulse 101 H 09/22/22 10:00 Resp 17 09/22/22 10:00 BP 134/90 09/22/22 10:00 Pulse Ox 99 09/22/22 10:00 FiO2 40 09/17/22 10:41 Intake & Output 09/21/22 09/22/22 09/22/22 18:59 06:59 18:59 Intake Total 2370 1160 660 Output Total 3465 1480 420 Balance -1095 -320 240 Weight 99.5 kg Intake: IV 1890 1160 360 0.9 @ KVO 240 160 60 Anidulafungin 100 mg In 100 Sodium Chloride 0.9% 100 ml @ 84 mls/hr IVPB DAILY [facility] Rx#:[id number] DAPTOmycin 500 mg In 50 Sodium Chloride 0.9% 50 ml @ 100 mls/hr IVPB Q24HR [facility] Rx#:[id number] Piperacillin-Tazobactam 3 200 100 .375 gm In Sodium Chloride 0.9% 100 ml @ 25 mls/hr IVPB Q8HR [facility] Rx# :[id number] Potassium Phosphate 3 1300 900 300 mmol Sodium Acetate 40 meq Calcium Gluconate 1 gm In Amino Acids 5 %/ Dextrose 20 % 1,000 ml @ 100 mls/hr IV .BY DURATION [facility] Rx#: [id number] Intake, IV Titration 200 Amount Anidulafungin 100 mg In 100 Sodium Chloride 0.9% 100 ml @ 84 mls/hr IVPB DAILY [facility] Rx#:[id number] DAPTOmycin 500 mg In 100 Sodium Chloride 0.9% 50 ml @ 100 mls/hr IVPB Q24HR [facility] Rx#:[id number] Oral 480 100 Output: Drainage 60 0 Left Lower Abdomen 0 0 Left Upper Abdomen 60 0 Urine 1800 1185 420 Stool 1665 235 0 Other: Voiding Method Indwelling Catheter Indwelling Catheter Indwelling Catheter ABP, PAP, CO, CI - Last Documented Arterial Blood Pressure 176/96 - Labs CBC & Chem 7: 09/22/22 03:53 09/22/22 03:53 Labs: Abnormal Lab Results - Last 24 Hours (Table) 09/21/22 09/21/22 09/21/22 Range/Units 11:40 16:58 20:27 WBC (3.8-10.6) k/uL RBC (4.30-5.90) m/uL Hgb (13.0-17.5) gm/dL Hct (39.0-53.0) % RDW (11.5-15.5) % Neutrophils # (1.3-7.7) k/uL Lymphocytes # (1.0-4.8) k/uL Sodium (137-145) mmol/L Carbon Dioxide (22-30) mmol/L Glucose (74-99) mg/dL POC Glucose (mg/dL) 176 H 159 H 158 H (70-110) mg/dL Calcium (8.4-10.2) mg/dL 09/21/22 09/22/22 09/22/22 Range/Units 22:14 03:53 03:53 WBC 19.3 H (3.8-10.6) k/uL RBC 2.97 L (4.30-5.90) m/uL Hgb 8.1 L (13.0-17.5) gm/dL Hct 25.0 L (39.0-53.0) % RDW 16.4 H (11.5-15.5) % Neutrophils # 17.1 H (1.3-7.7) k/uL Lymphocytes # 0.8 L (1.0-4.8) k/uL Sodium 133 L (137-145) mmol/L Carbon Dioxide 21 L (22-30) mmol/L Glucose 166 H (74-99) mg/dL POC Glucose (mg/dL) 152 H (70-110) mg/dL Calcium 7.9 L (8.4-10.2) mg/dL 09/22/22 Range/Units 06:46 WBC (3.8-10.6) k/uL RBC (4.30-5.90) m/uL Hgb (13.0-17.5) gm/dL Hct (39.0-53.0) % RDW (11.5-15.5) % Neutrophils # (1.3-7.7) k/uL Lymphocytes # (1.0-4.8) k/uL Sodium (137-145) mmol/L Carbon Dioxide (22-30) mmol/L Glucose (74-99) mg/dL POC Glucose (mg/dL) 199 H (70-110) mg/dL Calcium (8.4-10.2) mg/dL Microbiology - Last 24 Hours (Table) 09/20/22 10:05 Gram Stain - Final Abdomen Wound Culture - Final Escherichia coli Ysabel albicans 09/16/22 12:55 Blood Culture - Final Blood
--- NOTE | 2022-09-22 12:41 | P.PN ---
Subjective Progress Note Date: 09/22/22 Principal diagnosis: Abdominal sepsis This is a 52-year-old -[place] male with history of colon cancer, status post right hemicolectomy for cecal colon cancer on 08/29/2022. Patient was discharged uneventfully on Percocet and Motrin for pain control. Patient was readmitted on 09/03/2022, he was mostly admitted with abdominal pain, distention, nausea and vomiting which started a few days prior to his admission. Patient was seen by surgery on consultation, and he was found to have acute pneumoperitoneum. Yesterday, the patient underwent robotic-assisted laparoscopic extensive lysis of adhesions open exploratory laparotomy with right hemicolectomy and primary anastomosis drainage of abdominal abscess abdominal peritoneal lavage, Margarita spent of a SARAI drain in the pelvis and placement of the incisional wound VAC system. I was notified about this patient from Dr. Moeller yesterday, and considering his abdominal sepsis presentation considering his surgical findings considering the patient was not extubated postoperatively, we admitted the patient to the ICU, manage his ventilator overnight, and I'm evaluating the patient today on consultation. Patient had a relatively uneventful night, did not require any pressors, he did receive fluids and he seems to be hemodynamically stable, remains on mechanical ventilation. His ventilator settings at this point are assist control rate of 18 tidal volume 500 FiO2 40% and PEEP of 5 recent ABG showed a pO2 of 79 pCO2 39 pH of 7.42 patient is on vancomycin and Zosyn for his abdominal sepsis he is on propofol at 65 mcg/kg/m he has good urine output roughly 30-50 mL per hour. Patient has a nasogastric tube applied to suction and he has a wound VAC. He also has a SARAI drain noted. Patient is sedated and calm, however I would recommend a trial of sedation interruption and possibly weaning parameters, if tolerated may consider further weaning and extubation today. Labs today showed relatively normal CBC WBC count is 8.6 hemoglobin is 10.4. Elect lites are normal BUN is 23 creatinine 1.36. Reevaluated today on 09/06/2022, patient remains in the ICU, patient was extubated yesterday and he tolerated extubation well over the last 24 hours. He is on 2 L nasal cannula, not in any distress. Continues to have significant nasogastric output. Patient is to be started on TPN today. Doing better than expected overall. Remains on antibiotics for his abdominal sepsis. White count is 11.8 today hemoglobin is 9.6. Elect lites are normal renal profile is normal with a creatinine of 1.14, improving since admission from 2.14 on admission. Patient is compliant with his incentive spirometry and doing a good job with I- S. Reevaluated today on 09/07/2022, patient remains in the ICU, he feels generally weak, denies any shortness of breath, no cough, no wheezing. Continues to have nasogastric tube in place, and he had 1 50 mL of output overnight. Patient on TPN for nutritional support. His sodium was noted to be elevated today, and I recommended switching his IV fluid to D5W at 100 mL per hour. His labs otherwise are unremarkable. Patient is doing well with incentive spirometry, pain is fairly well controlled. Renal profile is normal, WBC count is 11.8 hemoglobin is 9.6 On today's evaluation of 09/21/2022, the patient is awake and alert and the patient is on room air oxygen. Is afebrile and the white cell count is down trending. He is also on a diet and he remains in the intensive care unit. Ileostomy is functional with an increased output and there is a mucosal slough on its surface. Nevertheless, it is functional. SARAI drains are in place. There is also some active drainage from the mid abdominal incision and the cultures were taken yesterday. There is a fluid collection in his right lower quadrant and is being considered for a CT-guided drainage. We'll coordinate this with the general surgeon. Otherwise, is doing well. Is on room air oxygen. His extubated. The risk was at 17.6 with a hemoglobin 7.5 and a platelet count of 346. BUN is 17 with a creatinine of 0.7. Awake and oriented and communicating. He remains in same antibiotic coverage. Reevaluated today on 09/22/2022, patient remains in the ICU, supposed to have drainage of abdominal abscess by interventional radiology, this may be done later today or tomorrow. In the meantime the patient is on room air, not in any distress, he has a functional ostomy. But yesterday he had venous Doppler of th e upper extremities and he was found to have left upper extremity DVT. I'm strongly recommending that the patient get started on heparin, unless general surgery on the case season options contraindication to heparin. The heparin could be placed on hold few hours before his scheduled abdominal abscess drainage by interventional radiology. Patient continues to have leukocytosis with WBC count 19.3 hemoglobin is 8.1. Elect lites are normal renal profile is normal Objective - Vital Signs Vital signs: Vital Signs Temp 98.6 F 09/22/22 12:00 Pulse 104 H 09/22/22 12:20 Resp 14 09/22/22 12:00 BP 111/97 09/22/22 12:00 Pulse Ox 98 09/22/22 12:00 FiO2 40 09/17/22 10:41 Intake & Output 09/21/22 09/22/22 09/22/22 18:59 06:59 18:59 Intake Total 2370 1160 950 Output Total 3465 1480 940 Balance -1095 -320 10 Weight 99.5 kg Intake: IV 1890 1160 600 0.9 @ KVO 240 160 100 Anidulafungin 100 mg In 100 Sodium Chloride 0.9% 100 ml @ 84 mls/hr IVPB DAILY [facility] Rx#:[id number] DAPTOmycin 500 mg In 50 Sodium Chloride 0.9% 50 ml @ 100 mls/hr IVPB Q24HR [facility] Rx#:[id number] Piperacillin-Tazobactam 3 200 100 .375 gm In Sodium Chloride 0.9% 100 ml @ 25 mls/hr IVPB Q8HR [facility] Rx# :[id number] Potassium Phosphate 3 1300 900 500 mmol Sodium Acetate 40 meq Calcium Gluconate 1 gm In Amino Acids 5 %/ Dextrose 20 % 1,000 ml @ 100 mls/hr IV .BY DURATION VERA Rx#: [id number] Intake, IV Titration 200 Amount Anidulafungin 100 mg In 100 Sodium Chloride 0.9% 100 ml @ 84 mls/hr IVPB DAILY [facility]A Rx#:[id number] DAPTOmycin 500 mg In 100 Sodium Chloride 0.9% 50 ml @ 100 mls/hr IVPB Q24HR [facility] Rx#:[id number] Oral 480 150 Output: Drainage 60 0 Left Lower Abdomen 0 0 Left Upper Abdomen 60 0 Urine 1800 1185 590 Stool 1665 235 350 Other: Voiding Method Indwelling Catheter Indwelling Catheter Indwelling Catheter ABP, PAP, CO, CI - Last Documented Arterial Blood Pressure 176/96 - Exam Physical Exam: Revealed a 52-year-old male in no distress on room air Head: Atraumatic, normocephalic. HEENT:[Neck is supple.] [No neck masses.] [No thyromegaly.] [No JVD.] Left IJ triple-lumen catheter noted, his PICC line has been removed. Chest: [Clear throughout, no crackles, no rhonchi, no wheezes.] Cardiac Exam: [Normal S1 and S2, no S3 gallop, no murmur.] Abdomen: [Postsurgical, slightly tender, Soft, no megaly, no rebound, no guarding, negative bowel sounds, ostomy seems to be functional, SARAI drains noted, ileostomy noted. Extremities: [No clubbing, no edema, no cyanosis.] Neurological Exam: [No focal neurologic deficit.] Alert and oriented 3. Psychiatric: Normal mood affect and normal mental status examination. - Labs CBC & Chem 7: 09/22/22 03:53 09/22/22 03:53 Labs: Abnormal Lab Results - Last 24 Hours (Table) 09/21/22 09/21/22 09/21/22 Range/Units 16:58 20:27 22:14 WBC (3.8-10.6) k/uL RBC (4.30-5.90) m/uL Hgb (13.0-17.5) gm/dL Hct (39.0-53.0) % RDW (11.5-15.5) % Neutrophils # (1.3-7.7) k/uL Lymphocytes # (1.0-4.8) k/uL Sodium (137-145) mmol/L Carbon Dioxide (22-30) mmol/L Glucose (74-99) mg/dL POC Glucose (mg/dL) 159 H 158 H 152 H (70-110) mg/dL Calcium (8.4-10.2) mg/dL 09/22/22 09/22/22 09/22/22 Range/Units 03:53 03:53 06:46 WBC 19.3 H (3.8-10.6) k/uL RBC 2.97 L (4.30-5.90) m/uL Hgb 8.1 L (13.0-17.5) gm/dL Hct 25.0 L (39.0-53.0) % RDW 16.4 H (11.5-15.5) % Neutrophils # 17.1 H (1.3-7.7) k/uL Lymphocytes # 0.8 L (1.0-4.8) k/uL Sodium 133 L (137-145) mmol/L Carbon Dioxide 21 L (22-30) mmol/L Glucose 166 H (74-99) mg/dL POC Glucose (mg/dL) 199 H (70-110) mg/dL Calcium 7.9 L (8.4-10.2) mg/dL 09/22/22 Range/Units 11:31 WBC (3.8-10.6) k/uL RBC (4.30-5.90) m/uL Hgb (13.0-17.5) gm/dL Hct (39.0-53.0) % RDW (11.5-15.5) % Neutrophils # (1.3-7.7) k/uL Lymphocytes # (1.0-4.8) k/uL Sodium (137-145) mmol/L Carbon Dioxide (22-30) mmol/L Glucose (74-99) mg/dL POC Glucose (mg/dL) 142 H (70-110) mg/dL Calcium (8.4-10.2) mg/dL Microbiology - Last 24 Hours (Table) 09/20/22 10:05 Gram Stain - Final Abdomen Wound Culture - Final Escherichia coli Ysabel albicans 09/16/22 12:55 Blood Culture - Final Blood Assessment and Plan Assessment: Impression: Acute pneumoperitoneum, secondary to perforated colonic diverticulum and transverse colon Severe abdominal sepsis, secondary to E. coli, pseudomonas aeruginosa, Enterococcus faecium, remains on daptomycin and Zosyn Abdominal wound dehiscence with stool and air leak through the incision on 09/14/2022. He was returned to the operating room that same day and had undergone an exploratory laparotomy and extensive lysis of adhesions, resection of ilealcolic anastomosis, drainage of perihepatic loculated abscess with re moval of CT-guided drain, small bowel resection for small bowel necrosis/perforation, placement of ileostomy, abdominal washout with 7 L of normal saline, debridement of abdominal wall midline incision, patient of the Moiz-Hanley in the right anterior lateral hepatic space, placement of Moiz-[place] drain in the right pelvis, quarter-inch [place] drain in the subcutaneous tissue midline incision and placement of Provena incisional wound VAC Episodic fever, rule out underlying ongoing intra-abdominal infection/abscess formation. The CAT scan of the abdomen was repeated on 09/18/2022 and the findings were essentially reviewed and noted. Minimal amount of purulent drainage can be from the inferior edge of the wound. Alfredo are all in place. The patient is currently on a combination of Zosyn, daptomycin and Eraxis. History of colon cancer status post resection Acute kidney injury Acute lactic acidosis secondary to sepsis Intra-abdominal abscess Abdominal ascites History of sarcoidosis Status post robotic-assisted laparoscopy with extensive lysis of adhesions, right hemicolectomy and primary anastomosis and drainage of abdominal abscess abdominal peritoneal lavage and placement of SARAI drain as well as incisional wound VAC system Sinus tachycardia secondary to sepsis Left upper extremity deep vein thrombosis with axillary and subclavian vein thrombosis Intra-abdominal secondary to above Recommendation: Continue present antibiotics Start patient on low-dose heparin for left upper extremity DVT if no contraindication and no objection from general surgery Agree with interventional radiology drainage of abdominal abscess Continue Zosyn and daptomycin and Eraxis Continue incentive spirometry Continue GI and DVT prophylaxis Advanced diet as tolerated and as recommended by surgery on the case. Will transfer the patient out of the ICU in the next 24 hours Prognosis remains guarded We'll continue to follow Time with Patient: Less than 30
[2022-09-22] MEDS: MEROPENEM 1 GM in SODIUM CHLORIDE 0.9% 100 ML IVPB SCH ×2 (12:44→20:58)
--- NOTE | 2022-09-22 13:21 | P.PN ---
Subjective Patient is seen for follow-up for acute kidney injury. Renal function has improved with creatinine down to 0.6 mg/dL. Sodium is 133 today from 135 yesterday. Maintained on TPN Good urine output Patient is awake, comfortable alert oriented 3. Objective - Vital Signs Vital signs: Vital Signs Temp 98.6 F 09/22/22 12:00 Pulse 104 H 09/22/22 13:00 Resp 22 09/22/22 13:00 BP 133/95 09/22/22 13:00 Pulse Ox 98 09/22/22 12:00 FiO2 40 09/17/22 10:41 Intake & Output 09/21/22 09/22/22 09/22/22 18:59 06:59 18:59 Intake Total 2370 1160 1120 Output Total 3465 1480 990 Balance -1095 -320 130 Weight 99.5 kg Intake: IV 1890 1160 720 0.9 @ KVO 240 160 120 Anidulafungin 100 mg In 100 Sodium Chloride 0.9% 100 ml @ 84 mls/hr IVPB DAILY [facility] Rx#:[id number] DAPTOmycin 500 mg In 50 Sodium Chloride 0.9% 50 ml @ 100 mls/hr IVPB Q24HR [facility] Rx#:[id number] Piperacillin-Tazobactam 3 200 100 .375 gm In Sodium Chloride 0.9% 100 ml @ 25 mls/hr IVPB Q8HR [facility] Rx# :[id number] Potassium Phosphate 3 1300 900 600 mmol Sodium Acetate 40 meq Calcium Gluconate 1 gm In Amino Acids 5 %/ Dextrose 20 % 1,000 ml @ 100 mls/hr IV .BY DURATION [facility] Rx#: [id number] Intake, IV Titration 200 Amount Anidulafungin 100 mg In 100 Sodium Chloride 0.9% 100 ml @ 84 mls/hr IVPB DAILY [facility] Rx#:[id number] DAPTOmycin 500 mg In 100 Sodium Chloride 0.9% 50 ml @ 100 mls/hr IVPB Q24HR [facility] Rx#:[id number] Oral 480 200 Output: Drainage 60 0 Left Lower Abdomen 0 0 Left Upper Abdomen 60 0 Urine 1800 1185 640 Stool 1665 235 350 Other: Voiding Method Indwelling Catheter Indwelling Catheter Indwelling Catheter ABP, PAP, CO, CI - Last Documented Arterial Blood Pressure 176/96 - Exam Patient is awake, comfortable Alert oriented 3 Examination of the heart S1 and S2 Examination of the lungs bilateral breath sounds are heard Abdomen shows incision is dressed drains are noted, ileostomy present Examination of the lower extremities shows no edema PRIOR AUTHORIZATION NURSE exam grossly intact - Labs CBC & Chem 7: 09/22/22 03:53 09/22/22 03:53 Labs: Abnormal Lab Results - Last 24 Hours (Table) 09/21/22 09/21/22 09/21/22 Range/Units 16:58 20:27 22:14 WBC (3.8-10.6) k/uL RBC (4.30-5.90) m/uL Hgb (13.0-17.5) gm/dL Hct (39.0-53.0) % RDW (11.5-15.5) % Neutrophils # (1.3-7.7) k/uL Lymphocytes # (1.0-4.8) k/uL Sodium (137-145) mmol/L Carbon Dioxide (22-30) mmol/L Glucose (74-99) mg/dL POC Glucose (mg/dL) 159 H 158 H 152 H (70-110) mg/dL Calcium (8.4-10.2) mg/dL 09/22/22 09/22/22 09/22/22 Range/Units 03:53 03:53 06:46 WBC 19.3 H (3.8-10.6) k/uL RBC 2.97 L (4.30-5.90) m/uL Hgb 8.1 L (13.0-17.5) gm/dL Hct 25.0 L (39.0-53.0) % RDW 16.4 H (11.5-15.5) % Neutrophils # 17.1 H (1.3-7.7) k/uL Lymphocytes # 0.8 L (1.0-4.8) k/uL Sodium 133 L (137-145) mmol/L Carbon Dioxide 21 L (22-30) mmol/L Glucose 166 H (74-99) mg/dL POC Glucose (mg/dL) 199 H (70-110) mg/dL Calcium 7.9 L (8.4-10.2) mg/dL 09/22/22 Range/Units 11:31 WBC (3.8-10.6) k/uL RBC (4.30-5.90) m/uL Hgb (13.0-17.5) gm/dL Hct (39.0-53.0) % RDW (11.5-15.5) % Neutrophils # (1.3-7.7) k/uL Lymphocytes # (1.0-4.8) k/uL Sodium (137-145) mmol/L Carbon Dioxide (22-30) mmol/L Glucose (74-99) mg/dL POC Glucose (mg/dL) 142 H (70-110) mg/dL Calcium (8.4-10.2) mg/dL Microbiology - Last 24 Hours (Table) 09/20/22 10:05 Gram Stain - Final Abdomen Wound Culture - Final Escherichia coli Ysabel albicans 09/16/22 12:55 Blood Culture - Final Blood Assessment and Plan Assessment: 1. Acute kidney injury, nonoliguric ischemic ATN from hypotension and sepsis. Good urine output. Improved. 2. Intra-abdominal abscess status post explorative laparotomy and further colon resection and drainage of abscess with lysis of adhesions. Patient was taken back to or yesterday on 09/13/2022 and had further bowel resection and drainage of abscess and abdominal washout. 3. Colon cancer status post initial partial colectomy on 08/29/2022 4. Hyperkalemia associated with acute kidney injury and significant hyperglycemia. Now resolved 5. Sepsis from intra-abdominal abscess. Improved. 6. Mild hyponatremia, maintained on TPN. Repeat labs in a.m. Plan: Repeat labs in a.m.
[2022-09-22] MEDS: HEPARIN SODIUM 1,000 UN/ML (10ML VL) IV PRN ×2 (16:05→22:38)
[2022-09-22 16:39] LABS: Glucose,Whole Blood 164 mg/dL (70-110)
[2022-09-22] MEDS: NOREPINEPHRINE 8 MG in SODIUM CHLORIDE 0.9% 250 ML IV SCH (17:36)
[2022-09-22] MEDS: ONDANSETRON 4 MG/2 ML VIAL IVP PRN (17:56)
--- NOTE | 2022-09-22 20:10 | P.PN ---
Subjective Progress Note Date: 09/21/22 Principal diagnosis: Intra-abdominal abscess Patient is a 52-year-old male presenting to the hospital with abdominal pain has been diagnosed with an intra-abdominal abscess from perforated diverticulum status post laparotomy and drainage of the abscess. Patient is status post IR drainage of perihepatic abscess completed on 09/11/2022, Patient was taken back to the OR on 09/13/2022 for small bowel necrosis and perforation, the patient is status post exploration laparotomy and lysis of addition resection of the ileocolonic anastomosis and drainage of the perihepatic local area abscess small bowel resection and creation of ileostomy on today's evaluation that is 09/21/2022 patient is afebrile this afternoon, patient is breathing comfortably on room air, patient denies having any chest pain shortness of breath or cough no nausea vomiting abdominal pain is currently controlled, the patient has been tolerating his diet Objective - Vital Signs Vital signs: Vital Signs Temp 98.8 F 09/21/22 16:00 Pulse 115 H 09/21/22 16:00 Resp 23 09/21/22 16:00 BP 130/84 09/21/22 16:00 Pulse Ox 97 09/21/22 16:00 FiO2 40 09/17/22 10:41 Intake & Output 09/20/22 09/21/22 09/21/22 18:59 06:59 18:59 Intake Total 1976 2574 2110 Output Total 2180 1605 2970 Balance -203 969 -860 Weight 98.4 kg Intake: IV 1663 1543 1430 0.9 @ KVO 180 240 180 Anidulafungin 100 mg In 100 100 Sodium Chloride 0.9% 100 ml @ 84 mls/hr IVPB DAILY [facility] Rx#:[id number] CVP 33 3 DAPTOmycin 500 mg In 50 Sodium Chloride 0.9% 50 ml @ 100 mls/hr IVPB Q24HR [facility] Rx#:[id number] Dextrose 5% in Water 1, 50 000 ml @ 50 mls/hr IV . Q20H [facility] Rx#:[id number] Magnesium Sulfate-D5w Pmx 100 1 gm In Dextrose/Water 1 100ml.bag @ 100 mls/hr IVPB ONCE ONE Rx#: [id number] Piperacillin-Tazobactam 3 100 200 .375 gm In Sodium Chloride 0.9% 100 ml @ 25 mls/hr IVPB Q8HR [facility] Rx# :[id number] Potassium Phosphate 3 1100 1200 900 mmol Sodium Acetate 40 meq Calcium Gluconate 1 gm In Amino Acids 5 %/ Dextrose 20 % 1,000 ml @ 100 mls/hr IV .BY DURATION [facility] Rx#: [id number] Sodium Chloride 0.9% 1, 100 000 ml @ 20 mls/hr IV . Q24H [facility] Rx#:[id number] Intake, IV Titration 1031 200 Amount Mvi, Adult No.4 with Vit 200 K 10 ml Trace (Conc-1Ml/ Dose) 1 ml Potassium Phosphate 3 mmol Sodium Acetate 40 meq Calcium Gluconate 1 gm In Amino Acids 5 %/Dextrose 20 % 1 ,000 ml @ 100 mls/hr IV . BY DURATION [facility]A Rx#: [id number] Potassium Phosphate 3 1031 mmol Sodium Acetate 40 meq Calcium Gluconate 1 gm In Amino Acids 5 %/ Dextrose 20 % 1,000 ml @ 100 mls/hr IV .BY DURATION [facility] Rx#: [id number] Oral 250 480 Tube Feeding 64 Output: Urine 1210 1455 1500 Stool 546 344 6790 Other: Voiding Method Indwelling Catheter Indwelling Catheter Indwelling Catheter ABP, PAP, CO, CI - Last Documented Arterial Blood Pressure 176/96 - Exam GENERAL DESCRIPTION: A middle-age male lying in bed in no distress RESPIRATORY SYSTEM: Unlabored breathing , decreased breath sounds at bases HEART: S1 S2 regular rate and rhythm , ABDOMEN: Soft , midline incision is intact and did have output in ileostomy EXTREMITIES: No edema feet - Labs CBC & Chem 7: 09/22/22 03:53 09/22/22 03:53 Labs: Abnormal Lab Results - Last 24 Hours (Table) 09/20/22 09/21/22 09/21/22 Range/Units 19:55 04:35 04:35 WBC 17.6 H (3.8-10.6) k/uL RBC 2.68 L (4.30-5.90) m/uL Hgb 7.5 L (13.0-17.5) gm/dL Hct 22.4 L (39.0-53.0) % RDW 16.0 H (11.5-15.5) % Neutrophils # 15.6 H (1.3-7.7) k/uL Lymphocytes # 0.7 L (1.0-4.8) k/uL Sodium 135 L (137-145) mmol/L Glucose 137 H (74-99) mg/dL POC Glucose (mg/dL) 129 H (70-110) mg/dL Calcium 7.9 L (8.4-10.2) mg/dL 09/21/22 09/21/22 Range/Units 06:13 11:40 WBC (3.8-10.6) k/uL RBC (4.30-5.90) m/uL Hgb (13.0-17.5) gm/dL Hct (39.0-53.0) % RDW (11.5-15.5) % Neutrophils # (1.3-7.7) k/uL Lymphocytes # (1.0-4.8) k/uL Sodium (137-145) mmol/L Glucose (74-99) mg/dL POC Glucose (mg/dL) 168 H 176 H (70-110) mg/dL Calcium (8.4-10.2) mg/dL Microbiology - Last 24 Hours (Table) 09/20/22 10:05 Gram Stain - Preliminary Abdomen Wound Culture - Preliminary Gram Neg Bacilli Assessment and Plan (1) Intra-abdominal abscess Current Visit: Yes Status: Acute Code(s): K65.1 - PERITONEAL ABSCESS SNOMED Code(s): 25137394 Plan: 1patient with sepsis in this patient who did have a fever tachycardia elevated white count source is intra-abdominal in this patient with evidence of colonic diverticular perforation intra-abdominal abscess status post laparotomy drainage of the abscess and primary anastomosis , cultures growing E. coli Pseudomonas and Enterococcus faecium with sensitivities pending. 2patient with fever and elevated white count concerning for perihepatic abscess, the patient is status post CT-guided drainage culture has been obtained which dual E. coli which is sensitive pathogen 3-patient did have subsequent bowl perforation from small bowel necrosis status post extensive abdominal surgery lysis of adhesion and creation of ileostomy cultures has been obtained and those are currently pending 4the patient fever has resolved and the patient abdominal culture 09/11/22 is growing E. coli sensitive to Zosyn sputum grew the same E. coli that is sensitive to Zosyn, we will continue patient on Zosyn and Eraxis and monitor clinical course closely , culture has been obtained from his abdominal wound with concern for purulent drainage present currently pending and monitor clinical course closely Time with Patient: Less than 30
--- NOTE | 2022-09-22 20:13 | P.PN ---
Subjective Progress Note Date: 09/22/22 Principal diagnosis: Intra-abdominal abscess Patient is a 52-year-old male presenting to the hospital with abdominal pain has been diagnosed with an intra-abdominal abscess from perforated diverticulum status post laparotomy and drainage of the abscess. Patient is status post IR drainage of perihepatic abscess completed on 09/11/2022, Patient was taken back to the OR on 09/13/2022 for small bowel necrosis and perforation, the patient is status post exploration laparotomy and lysis of addition resection of the ileocolonic anastomosis and drainage of the perihepatic local area abscess small bowel resection and creation of ileostomy on today's evaluation that is 09/22/2022 patient remains to be afebrile, patient is breathing comfortably on room air, patient denies having any chest pain shortness of breath or cough no nausea vomiting abdominal pain is controlled and the patient is tolerating his diet Objective - Vital Signs Vital signs: Vital Signs Temp 98.6 F 09/22/22 12:00 Pulse 104 H 09/22/22 12:20 Resp 14 09/22/22 12:00 BP 111/97 09/22/22 12:00 Pulse Ox 98 09/22/22 12:00 FiO2 40 09/17/22 10:41 Intake & Output 09/21/22 09/22/22 09/22/22 18:59 06:59 18:59 Intake Total 2370 1160 950 Output Total 3465 1480 940 Balance -1095 -320 10 Weight 99.5 kg Intake: IV 1890 1160 600 0.9 @ KVO 240 160 100 Anidulafungin 100 mg In 100 Sodium Chloride 0.9% 100 ml @ 84 mls/hr IVPB DAILY [facility] Rx#:[id number] DAPTOmycin 500 mg In 50 Sodium Chloride 0.9% 50 ml @ 100 mls/hr IVPB Q24HR [facility] Rx#:[id number] Piperacillin-Tazobactam 3 200 100 .375 gm In Sodium Chloride 0.9% 100 ml @ 25 mls/hr IVPB Q8HR [facility] Rx# :[id number] Potassium Phosphate 3 1300 900 500 mmol Sodium Acetate 40 meq Calcium Gluconate 1 gm In Amino Acids 5 %/ Dextrose 20 % 1,000 ml @ 100 mls/hr IV .BY DURATION [facility] Rx#: [id number] Intake, IV Titration 200 Amount Anidulafungin 100 mg In 100 Sodium Chloride 0.9% 100 ml @ 84 mls/hr IVPB DAILY [facility] Rx#:[id number] DAPTOmycin 500 mg In 100 Sodium Chloride 0.9% 50 ml @ 100 mls/hr IVPB Q24HR [facility] Rx#:[id number] Oral 480 150 Output: Drainage 60 0 Left Lower Abdomen 0 0 Left Upper Abdomen 60 0 Urine 1800 1185 590 Stool 1665 235 350 Other: Voiding Method Indwelling Catheter Indwelling Catheter Indwelling Catheter ABP, PAP, CO, CI - Last Documented Arterial Blood Pressure 176/96 - Exam GENERAL DESCRIPTION: A middle-age male lying in bed in no distress RESPIRATORY SYSTEM: Unlabored breathing , decreased breath sounds at bases HEART: S1 S2 regular rate and rhythm , ABDOMEN: Soft , midline incision is intact and did have output in ileostomy EXTREMITIES: No edema feet - Labs CBC & Chem 7: 09/22/22 03:53 09/22/22 03:53 Labs: Abnormal Lab Results - Last 24 Hours (Table) 09/21/22 09/21/22 09/21/22 Range/Units 16:58 20:27 22:14 WBC (3.8-10.6) k/uL RBC (4.30-5.90) m/uL Hgb (13.0-17.5) gm/dL Hct (39.0-53.0) % RDW (11.5-15.5) % Neutrophils # (1.3-7.7) k/uL Lymphocytes # (1.0-4.8) k/uL Sodium (137-145) mmol/L Carbon Dioxide (22-30) mmol/L Glucose (74-99) mg/dL POC Glucose (mg/dL) 159 H 158 H 152 H (70-110) mg/dL Calcium (8.4-10.2) mg/dL 09/22/22 09/22/22 09/22/22 Range/Units 03:53 03:53 06:46 WBC 19.3 H (3.8-10.6) k/uL RBC 2.97 L (4.30-5.90) m/uL Hgb 8.1 L (13.0-17.5) gm/dL Hct 25.0 L (39.0-53.0) % RDW 16.4 H (11.5-15.5) % Neutrophils # 17.1 H (1.3-7.7) k/uL Lymphocytes # 0.8 L (1.0-4.8) k/uL Sodium 133 L (137-145) mmol/L Carbon Dioxide 21 L (22-30) mmol/L Glucose 166 H (74-99) mg/dL POC Glucose (mg/dL) 199 H (70-110) mg/dL Calcium 7.9 L (8.4-10.2) mg/dL 09/22/22 Range/Units 11:31 WBC (3.8-10.6) k/uL RBC (4.30-5.90) m/uL Hgb (13.0-17.5) gm/dL Hct (39.0-53.0) % RDW (11.5-15.5) % Neutrophils # (1.3-7.7) k/uL Lymphocytes # (1.0-4.8) k/uL Sodium (137-145) mmol/L Carbon Dioxide (22-30) mmol/L Glucose (74-99) mg/dL POC Glucose (mg/dL) 142 H (70-110) mg/dL Calcium (8.4-10.2) mg/dL Microbiology - Last 24 Hours (Table) 09/20/22 10:05 Gram Stain - Final Abdomen Wound Culture - Final Escherichia coli Ysabel albicans 09/16/22 12:55 Blood Culture - Final Blood Assessment and Plan (1) Intra-abdominal abscess Current Visit: Yes Status: Acute Code(s): K65.1 - PERITONEAL ABSCESS SNOMED Code(s): 46331308 Plan: 1patient with sepsis in this patient who did have a fever tachycardia elevated white count source is intra-abdominal in this patient with evidence of colonic diverticular perforation intra-abdominal abscess status post laparotomy drainage of the abscess and primary anastomosis , cultures growing E. coli Pseudomonas and Enterococcus faecium with sensitivities pending. 2patient with fever and elevated white count concerning for perihepatic abscess, the patient is status post CT-guided drainage culture has been obtained which dual E. coli which is sensitive pathogen 3-patient did have subsequent bowl perforation from small bowel necrosis status post extensive abdominal surgery lysis of adhesion and creation of ileostomy cultures has been obtained and those are currently growing E. coli sensitive to Zosyn sputum grew the same E. coli that is sensitive to Zosyn 4-patient did have cultures obtained on 09/20/2022 from his abdominal wound drainage as there is evidence of right lower quadrant abscess those cultures are growing E. coli that is resistant to Zosyn and Unasyn along with ysabel we will discontinue Zosyn and start the patient meropenem and continue with Eraxis Time with Patient: Less than 30
[2022-09-22 20:39] LABS: Glucose,Whole Blood 145 mg/dL (70-110)
--- NOTE | 2022-09-22 21:23 | P.PN ---
Subjective This is a 52 year old male monitored in the intensive care unit postoperative day #4 lysis of adhesions and right hemicolectomy due to bowel perforation. Patient had end to end anastamosis. Has not had bowel movement, had KUB xray today showing multiple dilated small bowel loops possible ileus vs. obstruction. General surgery recommending patient to be NPO at this time. Heart rate remains elevated in the 120s and patient switched to IV lopressor. Remains on IV daptomycin and IV zosyn for positive peritoneal fluid culture with E. Coli, enterococcus and pseudomonas. Blood culture negative so far. Patient remains on D5 water at 100 mls/hr, sodium is slightly improved today down to 146. Continues on TPN, NG tube has been discontinued. Accuchecks switched to Q6h and small dose of levemir HS has been added. SARAI drain in place with serous drainage. Patient febrile today up to 101.9, encouraged to continue with incentive spirometer. Patient has wound vac in place to continuous suction, plan to ambulate around the room and up in the chair today. 09/09/2022 Patient is evaluated today in the ICU resting in bed. Alert x 3. Asking about discharge. Repeat blood culture is pending patient remains on IV antibiotics. White count up to 19.7 today. Patient reports BM yesterday and passing some gas today. Abdomen is more distended. Surgery recommending NG tube today. Patient remains NPO. Midline incisional wound vac in place. Patient remains with fever, using incentive spirometer reaching 1200. Continues on TPN. 09/10/2022 Patient remains in the intensive care unit. Patient continues to be NPO. 3 attempts were made to pass NG tube and were unsuccessful. Patient did have 2 BMs yesterday, abdomen remains significantly distended. Repeat abdominal pelvis CT reveals loculated and nonloculated perihepatic collections some of which demonst rate mildly thickened almeida with internal foci of air. Perihepatic abscesses are not excluded. Persistent dilation of small bowel with small bowel wall thickening and inflammatory change at the enterocolonic anastomotic site. Persistent postoperative ileus and/or obstructive changes not excluded. Adjacent drain is in place. Contrast does not opacify the anastomotic site and therefore leak is difficult to evaluate or exclude. Small amt of free air persists improved from prior study. White count 18.3 today, electrolytes are normalized and blood glucose improved to 115. Patient remains on TPN. Blood culture remains negative. Remains on IV zosyn and IV daptomycin. Temp of 100.4 and remains tachy cardic 121, blood pressure stable at 131/94. 09/11/2022 Patient is evaluated today in the intensive care unit. Remains tachycardic and T-Max of 100.7 overnight. Scheduled to undergo drainage and placement of drainage tube to the perihepatic abscess noted on CT imaging with IR today. White count down to 16.0 today. Continues on IV daptoymcin and IV vancomycin. Per nursing did have a small BM overnight. 09/12/2022 Patient evaluated today in the intensive care unit. Underwent CT guided abscess drainage with 100 mls of purulent drainage and also had midline fransisca removed at the top of incision with some purulent drainage. Patients white count is down to 12.8 today. Kidney function stable, sodium 135 today. Patient has been cleared to start diet, having small BMs. Metoprolol will be changed to oral. Fever is improving. Cultures are pending from the abscess and ID is following closely. 09/13/2022 Patient continues to be monitored closely in the intensive care unit. Patient continues with significant tachycardia not improving with metoprolol and continues with abdominal distention. Cardiology was placed on consultation for the tachycardia and patient has been transitioned back to IV lopressor. Wound cultures from the CT guided are showing gram negative bacilli. This morning per nursing the abdomen was more distended and patient had felt a popping sensation with evidence of leaking of brown colored drainage from the surgical incision and the drainage bag. The surgical incision was opened yesterday at the bedside by surgery. Patient was taken for emergent exploratory laporotomy. White count is 17.9 today, sodium 134, potassium 5.0. Kidney function remains stable. Patient has been continued to be NPO no NG tube present. Labs and vitals reviewed. 09/14/2022 Patient is evaluated today he is currently in the intensive care unit intubated and sedated he is on combination of nimbex and propofol. Patient is currently on the mechanical ventilator with 40% FiO2. Patient is also requiring levophed and vasopression. Patient continues on IV daptomycin and IV zosyn. The wound culture shows E.Coli. Patient underwent extensive exploratory laporotomy yesterday with lysis of adhesions, resection of the ileocolic anastamosis due to anastomotic leak, small bowel resection for small bowel necrosis/peforation with placement of ileostomy. Patient had nataliia-stone drain x 2 placed and alpa drain placed. Abdomen was closed with a wound vac. Temp is T-max 100.4 today. Labs rev eal white count of 20.1, hgb 9.3, sodium 131, potassium at 6.6 and 5.9, BUN 32, creatinine 2.15, blood glucose 394, calcium 6.4, magnesium 1.4. Patient received IV magnesium, IV gluconate, and IV insulin humulin N. 09/15/2022 Patient is seen in a follow-up continues to be in the ICU with multiple medical consultations following. Patient continues on mechanical ventilation with an FiO2 of 40% and PEEP is 5. Patient is maintained on IV antibiotics in the form of dapto and Zosyn with Infectious Disease Following Closely and Culture Showing E. coli with Multiple Sensitivities. Patient Continues to Have Fevers and White Count Elevated Slightly Trending down to 18 Today. Recent Ileostomy Placed with No Function at This Time and Patient Is Maintained on TPN. Patient Continues with Drains along with a Wound VAC of the Abdomen. Hemoglobin Trending down and upon Stopping Currently Would Recommend Monitoring Closely and Transfuse of 7 or Less. Nephrology Following As Well This Patient's Kidney Functions Worsened Although Appear Better Today. Patient Remains Tachycardic on the Monitor and Troponins Have Been Negative. Recommend Continuing with Accu-Cheks per Protocol and Tight Glycemic Control. 09/16/2022 Patient is seen and evaluated in follow-up today and continues to remain on mechanical ventilation maintained on fentanyl and propofol under sedation. FiO2 is 40% with a PEEP of 5. Hemoglobin critically low at 6.3 and receiving a unit of PRBCs. Would recommend a dose of Lasix after unit of blood. Patient's overall swelling showing some improvement on chest x-ray continues to so show some stable pleural effusions. No bowel activity per nursing staff noted as of yet in the ostomy. Kidney functions are trending down. Patient is continuing to have temps and would recommend repeat blood cultures, sputum culture, urine culture. 09/17/2022 Patient is seen in follow-up this morning continues to be in the ICU on mechanical ventilation and undergoing sedation holidays. FiO2 is 40% with a PEEP of 5. Per nursing staff patient is following commands on sedation holiday but not quite ready for weaning per pulmonary news technical director. Patient's hemoglobin is improved today at 7.6 status post 1 unit of PRBC yesterday. White count remains slightly elevated at 17.4 and patient continues to have fevers. Infectious disease following closely and repeat blood cultures along with sputum culture have all been sent. Initial culture showing some E. coli and patient is maintained on IV antibiotics in the form of daptomycin, Eraxis, and Zosyn as well awaiting finalized cultures. Patient is noted to have some loose liquid stool noted in the ostomy and is maintained on TPN. Patient is currently off pressor support as well. Prognosis Remains guarded. 09/18/2022 Patient is seen and evaluated in follow-up today continues to be in the ICU was recently extubated yesterday successfully currently maintained on 3 L via nasal cannula. Patient is off pressor support and blood pressure is mildly hypertensive and patient continues to be tacky. Patient most recent fever was last night of 100.4. Patient is maintained on IV antibiotics with infectious disease following and preliminary sputum cultures repeated show gram-negative an initial wound culture showing E. coli along with Pseudomonas and enterococcus. Patient had copious amounts of drainage from ostomy per nursing staff with general surgery is admitting and repeat CT abdomen is ordered and pending at th is time. C. diff sample also being sent which is pending at this time. Patient is maintained on TPN and will continue on strict nothing by mouth per surgery recommendations until Dr. Helton advances. WBC is 19.2 and hemoglobin is 8.2, sodium 142 with a potassium of 3.9 and current creatinine is 0.94. Magnesium is 2.1. Chest x-ray today shows bilateral infiltrates and small pleural effusions are stable. 09/19/2022 Patient admitted to the hospital for perforated colonic diverticulum after recent right hemicolectomy for his colon cancer and discharge home. Patient status post laparoscopic right hemicolectomy and primary anastomosis and drainage of abscess. This has been scanning of the abdominal and yesterday showing right lower quadrant seroma on abscesses and dilated small bowel which could be ileus versus obstruction. The patient with evidence of positive cultures including sputum with E. coli on wound culture with E. coli HER FLUID WITH E. COLI AND PSEUDOMONAS. PATIENT On MULTIPLE ANTIBIOTIC INCLUDING Eraxis, daptomycin and Zosyn 09/20/2029 Patient improving slowly and gradually Patient is more awake and relaxed, no new complaints Just tolerating diet and will be advanced as per surgery team No bowel movement but had high output ileostomy in the right lower quadrant still slightly tachycardic and tachypneic TPN and place 09/21/2022 Patient awake alert. He somewhat tolerates diet between 25 and 75%, it looks like preventing him from eating well he is infection and abdominal sepsis going unrelated to his perforated viscus on admission. Also he has high output RLQ related to infection as well. He has low-grade temperature 99.9 today and he is a broad-spectrum antibiotic of daptomycin, Zosyn and Eraxis. He has multiple cultures positive for E. coli, recent wound culture also growing gram-negative bacilli. TPN is in place, Cruz catheter in place 09/22/2022 Patient clinically is improving, his more more relaxed more comfortable and his eating more between 25-27% within he says that his progress and eating more However he lost his appetite when he was informed that he has a clot in his left upper extremity. Patient was started on heparin drip Also surgery team planned to undergo drainage of this abdominal abscess. An event that he remains on broad-spectrum antibiotics the same once as above. Cruz catheter in a Place Objective - Vital Signs Vital signs: Vital Signs Temp 98.8 F 09/22/22 08:00 Pulse 101 H 09/22/22 10:00 Resp 17 09/22/22 10:00 BP 134/90 09/22/22 10:00 Pulse Ox 99 09/22/22 10:00 FiO2 40 09/17/22 10:41 Intake & Output 09/21/22 09/22/22 09/22/22 18:59 06:59 18:59 Intake Total 2370 1160 660 Output Total 3465 1480 420 Balance -1095 -320 240 Weight 99.5 kg Intake: IV 1890 1160 360 0.9 @ KVO 240 160 60 Anidulafungin 100 mg In 100 Sodium Chloride 0.9% 100 ml @ 84 mls/hr IVPB DAILY [facility] Rx#:[id number] DAPTOmycin 500 mg In 50 Sodium Chloride 0.9% 50 ml @ 100 mls/hr IVPB Q24HR [facility] Rx#:[id number] Piperacillin-Tazobactam 3 200 100 .375 gm In Sodium Chloride 0.9% 100 ml @ 25 mls/hr IVPB Q8HR [facility] Rx# :[id number] Potassium Phosphate 3 1300 900 300 mmol Sodium Acetate 40 meq Calcium Gluconate 1 gm In Amino Acids 5 %/ Dextrose 20 % 1,000 ml @ 100 mls/hr IV .BY DURATION [facility] Rx#: [id number] Intake, IV Titration 200 Amount Anidulafungin 100 mg In 100 Sodium Chloride 0.9% 100 ml @ 84 mls/hr IVPB DAILY [facility] Rx#:[id number] DAPTOmycin 500 mg In 100 Sodium Chloride 0.9% 50 ml @ 100 mls/hr IVPB Q24HR [facility] Rx#:[id number] Oral 480 100 Output: Drainage 60 0 Left Lower Abdomen 0 0 Left Upper Abdomen 60 0 Urine 1800 1185 420 Stool 1665 235 0 Other: Voiding Method Indwelling Catheter Indwelling Catheter Indwelling Catheter ABP, PAP, CO, CI - Last Documented Arterial Blood Pressure 176/96 - Exam -GENERAL: The patient is drowsy, not in any acute distress. Well developed, well nourished. HEENT: Pupils are round and equally reacting to light. EOMI. No scleral icterus. No conjunctival pallor. Normocephalic, atraumatic. No pharyngeal erythema. No thyromegaly. CARDIOVASCULAR: S1 and S2 present. No murmurs, rubs, or gallops. PULMONARY: Chest is clear to auscultation, no wheezing . no crackles. -ABDOMEN: Soft, nontender, nondistended, normoactive bowel sounds. No palpable organomegaly. Healing surgical wound was dressed in a Place, Cruz catheter in place MUSCULOSKELETAL: No joint swelling or deformity. EXTREMITIES: No cyanosis, clubbing, or pedal edema. NEUROLOGICAL: Gross neurological examination did not reveal any focal deficits. SKIN: No rashes. no petechiae. - Labs CBC & Chem 7: 09/22/22 03:53 09/22/22 03:53 Labs: Abnormal Lab Results - Last 24 Hours (Table) 09/21/22 09/21/22 09/21/22 Range/Units 11:40 16:58 20:27 WBC (3.8-10.6) k/uL RBC (4.30-5.90) m/uL Hgb (13.0-17.5) gm/dL Hct (39.0-53.0) % RDW (11.5-15.5) % Neutrophils # (1.3-7.7) k/uL Lymphocytes # (1.0-4.8) k/uL Sodium (137-145) mmol/L Carbon Dioxide (22-30) mmol/L Glucose (74-99) mg/dL POC Glucose (mg/dL) 176 H 159 H 158 H (70-110) mg/dL Calcium (8.4-10.2) mg/dL 09/21/22 09/22/22 09/22/22 Range/Units 22:14 03:53 03:53 WBC 19.3 H (3.8-10.6) k/uL RBC 2.97 L (4.30-5.90) m/uL Hgb 8.1 L (13.0-17.5) gm/dL Hct 25.0 L (39.0-53.0) % RDW 16.4 H (11.5-15.5) % Neutrophils # 17.1 H (1.3-7.7) k/uL Lymphocytes # 0.8 L (1.0-4.8) k/uL Sodium 133 L (137-145) mmol/L Carbon Dioxide 21 L (22-30) mmol/L Glucose 166 H (74-99) mg/dL POC Glucose (mg/dL) 152 H (70-110) mg/dL Calcium 7.9 L (8.4-10.2) mg/dL 09/22/22 Range/Units 06:46 WBC (3.8-10.6) k/uL RBC (4.30-5.90) m/uL Hgb (13.0-17.5) gm/dL Hct (39.0-53.0) % RDW (11.5-15.5) % Neutrophils # (1.3-7.7) k/uL Lymphocytes # (1.0-4.8) k/uL Sodium (137-145) mmol/L Carbon Dioxide (22-30) mmol/L Glucose (74-99) mg/dL POC Glucose (mg/dL) 199 H (70-110) mg/dL Calcium (8.4-10.2) mg/dL Microbiology - Last 24 Hours (Table) 09/16/22 12:55 Blood Culture - Final Blood 09/20/22 10:05 Gram Stain - Preliminary Abdomen Wound Culture - Preliminary Gram Neg Bacilli Assessment and Plan Assessment: Perforated colonic diverticulum of the transverse: With recent history of laparoscopic hemicolectomy and primary anastomosis for colon cancer Neurologic small bowel could be ileus versus obstruction Left upper extremity DVT thrombosis Right lower quadrant seroma versus abscess Abdominal sepsis secondary to above Anemia Leukocytosis Plan: Start heparin drip Plan to drain intra-abdominal abscess by interventional radiologist Continue with antibiotic axis, daptomycin and Zosyn Encourage diet Continue TPN Multiple consultants including critical care pulmonary, infectious disease and surgery team Continue with Levemir insulin Labs and medication were reviewed.. Continue same treatment. Continue with symptomatic treatment. Resume home medication. Monitor labs and vitals. DVT and GI prophylaxis. Further recommendations as per clinical course of the patient DVT prophylaxis: heparin GI Prophylaxis: Ppi Prognosis is guarded
[2022-09-23] MEDS: HYDROmorphone 1 MG/ML 1 ML SYRINGE IVP PRN ×6 (00:01→20:43)
[2022-09-23] MEDS: MEROPENEM 1 GM in SODIUM CHLORIDE 0.9% 100 ML IVPB SCH ×3 (04:37→22:39)
[2022-09-23] MEDS: HEPARIN SOD,PORK IN 0.45% NACL 25,000 UNIT in 0.45% NACL 1 250ML.BAG IV SCH (04:37)
[2022-09-23 05:12] LABS: Prothrombin Time 10.9 sec (9.0-12.0)
[2022-09-23 05:17] LABS: African American GFR (CKD) >90 (>60 ml/min/1.73 sqM); Anion Gap 6 mmol/L; Blood Urea Nitrogen 15 mg/dL (9-20); Carbon Dioxide 23 mmol/L (22-30); Chloride 104 mmol/L (98-107); Glucose 156 mg/dL (74-99); Non-African American GFR(CKD) >90 (>60 ml/min/1.73 sqM); Potassium 3.9 mmol/L (3.5-5.1); Sodium 133 mmol/L (137-145)
[2022-09-23 05:20] LABS: Anisocytosis Slight; Basophils % (A) 0 %; Eosinophils # (A) 0.4 k/uL (0-0.7); Eosinophils % (A) 2 %; HCT 24.1 % (39.0-53.0); HGB 7.9 gm/dL (13.0-17.5); Hypochromasia Slight; Lymphocytes # (A) 0.9 k/uL (1.0-4.8); Lymphocytes % (A) 6 %; MCH 27.5 pg (25.0-35.0); MCHC 32.6 g/dL (31.0-37.0); MCV 84.1 fL (80.0-100.0); Mean Platelet Volume 8.3; Monocytes # (A) 0.7 k/uL (0-1.0); Monocytes % (A) 4 %; Neutrophils # (A) 13.6 k/uL (1.3-7.7); Neutrophils % (A) 86 %; Platelet Count 274 k/uL (150-450); RBC 2.87 m/uL (4.30-5.90); RDW 16.5 % (11.5-15.5); WBC 15.7 k/uL (3.8-10.6)
[2022-09-23] MEDS ORDERED: MAGNESIUM SULFATE-D5W PMX 1 GM in DEXTROSE/WATER 1 100ML.BAG IVPB ONE (05:46)
[2022-09-23] MEDS ORDERED: POTASSIUM CHLORIDE ER 20 MEQ TAB.ER PO SCH (06:00)
[2022-09-23] MEDS: INSULIN DETEMIR (LEVEMIR) 100 UNIT/ML SYR SQ SCH ×2 (06:01→22:39)
[2022-09-23] MEDS: HEPARIN SODIUM 1,000 UN/ML (10ML VL) IV PRN (06:14)
[2022-09-23 06:15] LABS: Glucose,Whole Blood 164 mg/dL (70-110)
[2022-09-23] MEDS: INSULIN ASPART (NovoLOG) 100 UNIT/ML VIAL SQ SCH ×8 (06:19→22:42)
[2022-09-23] MEDS ORDERED: ENOXAPARIN 80 MG/0.8 ML SYRINGE SQ SCH (09:00)
[2022-09-23] MEDS: PANTOPRAZOLE 40 MG/10 ML VIAL IV SCH (09:19)
[2022-09-23] MEDS: DAPTOmycin 500 MG in SODIUM CHLORIDE 0.9% 50 ML IVPB SCH (09:20)
[2022-09-23] MEDS: ANIDULAFUNGIN 100 MG in SODIUM CHLORIDE 0.9% 100 ML IVPB SCH (09:20)
[2022-09-23] MEDS: METOPROLOL TARTRATE 50 MG TAB PO SCH ×2 (09:20→22:41)
[2022-09-23] MEDS: IPRATROPIUM-ALBUTEROL 3 ML NEB INHALATION SCH ×5 (09:56→21:38)
[2022-09-23] MEDS: [UNRECOGNIZED DRUG - REMARK] IV SCH ×16 (10:24→22:44)
[2022-09-23] MEDS: SODIUM CHLORIDE 0.9% 1,000 ML IV SCH (10:25)
[2022-09-23 11:15] LABS: Prothrombin Time 10.8 sec (9.0-12.0)
[2022-09-23 11:28] LABS: Glucose,Whole Blood 134 mg/dL (70-110)
--- NOTE | 2022-09-23 11:49 | P.PN ---
Subjective Progress Note Date: 09/23/22 Principal diagnosis: Intra-abdominal abscess Patient is a 52-year-old male presenting to the hospital with abdominal pain has been diagnosed with an intra-abdominal abscess from perforated diverticulum status post laparotomy and drainage of the abscess. Patient is status post IR drainage of perihepatic abscess completed on 09/11/2022, Patient was taken back to the OR on 09/13/2022 for small bowel necrosis and perforation, the patient is status post exploration laparotomy and lysis of addition resection of the ileocolonic anastomosis and drainage of the perihepatic local area abscess small bowel resection and creation of ileostomy on today's evaluation that is 09/23/2022 patient continues to be afebrile, patient is breathing comfortably on room air, patient denies chest pain shortness of breath or cough no nausea vomiting abdominal pain is controlled and the patient is tolerating his diet, feeling better Objective - Vital Signs Vital signs: Vital Signs Temp 98.6 F 09/23/22 08:00 Pulse 103 H 09/23/22 10:00 Resp 24 09/23/22 10:00 BP 127/86 09/23/22 10:00 Pulse Ox 96 09/23/22 10:00 FiO2 40 09/17/22 10:41 Intake & Output 09/22/22 09/23/22 09/23/22 18:59 06:59 18:59 Intake Total 2183.667 2537.624 494.924 Output Total 1560 1975 800 Balance 623.667 562.624 -305.076 Weight 98.1 kg Intake: IV 820 360 140 0.9 @ KVO 220 260 40 Anidulafungin 100 mg In 100 Sodium Chloride 0.9% 100 ml @ 84 mls/hr IVPB DAILY [facility] Rx#:[id number] Potassium Phosphate 3 600 100 mmol Sodium Acetate 40 meq Calcium Gluconate 1 gm In Amino Acids 5 %/ Dextrose 20 % 1,000 ml @ 100 mls/hr IV .BY DURATION [facility] Rx#: [id number] Intake, IV Titration 025.827 4465.624 354.924 Amount Anidulafungin 100 mg In 100 100 Sodium Chloride 0.9% 100 ml @ 84 mls/hr IVPB DAILY [facility] Rx#:[id number] DAPTOmycin 500 mg In 100 Sodium Chloride 0.9% 50 ml @ 100 mls/hr IVPB Q24HR [facility] Rx#:[id number] Heparin Sod,Pork in 0.45% 63.667 197.624 54.924 NaCl 25,000 unit In 0.45 % NaCl 1 250ml.bag @ 10. 05 UNITS/KG/HR 10 mls/hr IV .Q24H [facility] Rx#: [id number] Magnesium Sulfate-D5w Pmx 100 1 gm In Dextrose/Water 1 100ml.bag @ 100 mls/hr IVPB ONCE ONE Rx#: [id number] Potassium Phosphate 3 700 1100 mmol Sodium Acetate 64 meq Potassium Chloride 6 meq Calcium Gluconate 1 gm In Amino Acids 5 %/ Dextrose 20 % 1,000 ml @ 100 mls/hr IV .BY DURATION [facility] Rx#: [id number] Potassium Phosphate 3 200 mmol Sodium Acetate 80 meq Potassium Chloride 12 meq Magnesium Sulfate gm 0.5 gm Calcium Gluconate 1 gm In Amino Acids 5 %/ Dextrose 20 % 1,000 ml @ 100 mls/hr IV .BY DURATION [facility] Rx#: [id number] Oral 400 780 Output: Drainage 0 Left Lower Abdomen 0 Left Upper Abdomen 0 Urine 1060 1650 400 Stool 500 325 400 Other: Voiding Method Indwelling Catheter Indwelling Catheter Indwelling Catheter ABP, PAP, CO, CI - Last Documented Arterial Blood Pressure 176/96 - Exam GENERAL DESCRIPTION: A middle-age male lying in bed in no distress RESPIRATORY SYSTEM: Unlabored breathing , decreased breath sounds at bases HEART: S1 S2 regular rate and rhythm , ABDOMEN: Soft , midline incision is intact and did have output in ileostomy EXTREMITIES: No edema feet - Labs CBC & Chem 7: 09/23/22 04:51 09/23/22 04:51 Labs: Abnormal Lab Results - Last 24 Hours (Table) 09/22/22 09/22/22 09/22/22 Range/Units 11:31 16:37 20:38 WBC (3.8-10.6) k/uL RBC (4.30-5.90) m/uL Hgb (13.0-17.5) gm/dL Hct (39.0-53.0) % RDW (11.5-15.5) % Neutrophils # (1.3-7.7) k/uL Lymphocytes # (1.0-4.8) k/uL APTT (22.0-30.0) sec Sodium (137-145) mmol/L Creatinine (0.66-1.25) mg/dL Glucose (74-99) mg/dL POC Glucose (mg/dL) 142 H 164 H 145 H (70-110) mg/dL Calcium (8.4-10.2) mg/dL 09/22/22 09/23/22 09/23/22 Range/Units 22:00 04:51 04:51 WBC 15.7 H (3.8-10.6) k/uL RBC 2.87 L (4.30-5.90) m/uL Hgb 7.9 L (13.0-17.5) gm/dL Hct 24.1 L (39.0-53.0) % RDW 16.5 H (11.5-15.5) % Neutrophils # 13.6 H (1.3-7.7) k/uL Lymphocytes # 0.9 L (1.0-4.8) k/uL APTT 34.9 H (22.0-30.0) sec Sodium 133 L (137-145) mmol/L Creatinine 0.63 L (0.66-1.25) mg/dL Glucose 156 H (74-99) mg/dL POC Glucose (mg/dL) (70-110) mg/dL Calcium 8.0 L (8.4-10.2) mg/dL 09/23/22 09/23/22 Range/Units 04:51 06:14 WBC (3.8-10.6) k/uL RBC (4.30-5.90) m/uL Hgb (13.0-17.5) gm/dL Hct (39.0-53.0) % RDW (11.5-15.5) % Neutrophils # (1.3-7.7) k/uL Lymphocytes # (1.0-4.8) k/uL APTT 31.8 H (22.0-30.0) sec Sodium (137-145) mmol/L Creatinine (0.66-1.25) mg/dL Glucose (74-99) mg/dL POC Glucose (mg/dL) 164 H (70-110) mg/dL Calcium (8.4-10.2) mg/dL Microbiology - Last 24 Hours (Table) 09/20/22 10:05 Gram Stain - Final Abdomen Wound Culture - Final Escherichia coli Ysabel albicans Assessment and Plan (1) Intra-abdominal abscess Current Visit: Yes Status: Acute Code(s): K65.1 - PERITONEAL ABSCESS SNOMED Code(s): 91959213 Plan: 1patient with sepsis in this patient who did have a fever tachycardia elevated white count source is intra-abdominal in this patient with evidence of colonic diverticular perforation intra-abdominal abscess status post laparotomy drainage of the abscess and primary anastomosis , cultures growing E. coli Pseudomonas and Enterococcus faecium with sensitivities pending. 2patient with fever and elevated white count concerning for perihepatic abscess, the patient is status post CT-guided drainage culture has been obtained which dual E. coli which is sensitive pathogen 3-patient did have subsequent bowl perforation from small bowel necrosis status post extensive abdominal surgery lysis of adhesion and creation of ileostomy cultures has been obtained and those are currently growing E. coli sensitive to Zosyn sputum grew the same E. coli that is sensitive to Zosyn 4-patient did have cultures obtained on 09/20/2022 from his abdominal wound drainage as there is evidence of right lower quadrant abscess those cultures are growing E. coli that is resistant to Zosyn and Unasyn along with ysabel patient to continue meropenem and Eraxis, the patient white count is trending down Time with Patient: Less than 30
--- NOTE | 2022-09-23 12:45 | P.PN ---
Subjective Progress Note Date: 09/23/22 CHIEF COMPLAINT: Pneumoperitoneum, abdominal pain HISTORY OF PRESENT ILLNESS: The patient is a 52-year-old male status post right hemicolectomy for colon cancer 08/29/2022. He was discharged from the hospital without sequelae 08/31/2022 and returned to the hospital 09/03/2022 for pneumoperitoneum. He is status post exploratory laparotomy, lysis of adhesions, evacuation of intra-abdominal abscess, right hemicolectomy for resection of perforated transverse colon diverticulum, 09/04/2022. He then developed acute abdominal pain with suspected bowel perforation. He was taken back to the operating room 09/13/2022 with ileostomy, drainage of perihepatic abscess and extensive lysis of adhesions with small bowel resection. Patient remains in the ICU. He is drinking the Ensure drinks. Appetite is a little better but still diminished. He reports each day pain is improving. He did have increased drainage from the [place] drain. During the night he was having to have the dressing changed about every 4 hours. Ostomy output is also decreased. He is scheduled for PICC line placement today. Heart rate has improved metoprolol. They've discontinued the heparin drip and started patient on Lovenox for his DVT. He is supposed to go to the stepdown unit later today. He is afebrile. Heart rate 107. WBC is down from 19.3-15.7 Hgb 7.9 platelets 274 sodium 133 potassium 3.9 creatinine 0.63 and Mg 1.7 CPK and drains were discontinued yesterday PHYSICAL EXAM: VITAL SIGNS: Reviewed GENERAL: Well-developed in no acute distress. HEENT: No sclera icterus. Extraocular movements grossly intact. Moist buccal mucosa. Head is atraumatic, normocephalic. No nasal drainage. NECK: Supple without lymphadenopathy. CHEST: Non-labored respirations and equal bilateral excursions. CARDIOVASCULAR: Palpable 2+ radial pulses. ABDOMEN: distended. Ileostomy with stool output. [place] Stoma. Purulent incisional drainage at the distal aspect of incision decreased. Don drain noted at the distal and proximal aspect. MUSCULOSKELETAL: No clubbing or cyanosis. NEUROLOGIC: No focal or lateralizing signs. Cranial nerves II through XII grossly intact. PSYCH: Appropriate affect. Alert and oriented to person, place and time. SKIN: Well perfused. Good skin turgor. ASSESSMENT: 1. Pneumoperitoneum due to perforated diverticulum 2. Tachycardia with fevers consistent with sepsis 3. Acute kidney injury, failure due to severe sepsis 4. Colon cancer status post resection 5. Liver abscess, para hepatic 6. Incisional wound abscess 7. Perforated anastomosis, acute 8. Fluid along the incision may reflect postsurgical seroma 9. Right lower quadrant fluid collection 10. DVT left arm PLAN: -Okay to transfer out of the ICU from surgical standpoint -There is no IR service available for CT-guided drainage of the right lower quadrant fluid collection -Continue antibiotics -Continue to monitor -Continue low fiber diet -Continue local wound care with daily chlorhexidine cleaning of incision. Change dressing as needed -Lovenox for DVT of left arm -Continue supportive care -Continue TPN for nutrition support -Continue pain management -DVT prophylaxis subcu heparin Physician Director Of Psychology note has been reviewed by physician. Signing provider agrees with the documented findings, assessment, and plan of care. Objective - Vital Signs Vital signs: Vital Signs Temp 98.6 F 09/23/22 08:00 Pulse 103 H 09/23/22 10:00 Resp 24 09/23/22 10:00 BP 127/86 09/23/22 10:00 Pulse Ox 96 09/23/22 10:00 FiO2 40 09/17/22 10:41 Intake & Output 09/22/22 09/23/22 09/23/22 18:59 06:59 18:59 Intake Total 2183.667 2537.624 494.924 Output Total 1560 1975 800 Balance 623.667 562.624 -305.076 Weight 98.1 kg Intake: IV 820 360 140 0.9 @ KVO 220 260 40 Anidulafungin 100 mg In 100 Sodium Chloride 0.9% 100 ml @ 84 mls/hr IVPB DAILY [facility] Rx#:[id number] Potassium Phosphate 3 600 100 mmol Sodium Acetate 40 meq Calcium Gluconate 1 gm In Amino Acids 5 %/ Dextrose 20 % 1,000 ml @ 100 mls/hr IV .BY DURATION [facility] Rx#: [id number] Intake, IV Titration 500.120 6931.624 354.924 Amount Anidulafungin 100 mg In 100 100 Sodium Chloride 0.9% 100 ml @ 84 mls/hr IVPB DAILY [facility] Rx#:[id number] DAPTOmycin 500 mg In 100 Sodium Chloride 0.9% 50 ml @ 100 mls/hr IVPB Q24HR [facility] Rx#:[id number] Heparin Sod,Pork in 0.45% 63.667 197.624 54.924 NaCl 25,000 unit In 0.45 % NaCl 1 250ml.bag @ 10. 05 UNITS/KG/HR 10 mls/hr IV .Q24H [facility] Rx#: [id number] Magnesium Sulfate-D5w Pmx 100 1 gm In Dextrose/Water 1 100ml.bag @ 100 mls/hr IVPB ONCE ONE Rx#: [id number] Potassium Phosphate 3 700 1100 mmol Sodium Acetate 64 meq Potassium Chloride 6 meq Calcium Gluconate 1 gm In Amino Acids 5 %/ Dextrose 20 % 1,000 ml @ 100 mls/hr IV .BY DURATION [facility] Rx#: [id number] Potassium Phosphate 3 200 mmol Sodium Acetate 80 meq Potassium Chloride 12 meq Magnesium Sulfate gm 0.5 gm Calcium Gluconate 1 gm In Amino Acids 5 %/ Dextrose 20 % 1,000 ml @ 100 mls/hr IV .BY DURATION [facility] Rx#: [id number] Oral 400 780 Output: Drainage 0 Left Lower Abdomen 0 Left Upper Abdomen 0 Urine 1060 1650 400 Stool 500 325 400 Other: Voiding Method Indwelling Catheter Indwelling Catheter Indwelling Catheter ABP, PAP, CO, CI - Last Documented Arterial Blood Pressure 176/96 - Labs CBC & Chem 7: 09/23/22 04:51 09/23/22 04:51 Labs: Abnormal Lab Results - Last 24 Hours (Table) 09/22/22 09/22/22 09/22/22 Range/Units 11:31 16:37 20:38 WBC (3.8-10.6) k/uL RBC (4.30-5.90) m/uL Hgb (13.0-17.5) gm/dL Hct (39.0-53.0) % RDW (11.5-15.5) % Neutrophils # (1.3-7.7) k/uL Lymphocytes # (1.0-4.8) k/uL APTT (22.0-30.0) sec Sodium (137-145) mmol/L Creatinine (0.66-1.25) mg/dL Glucose (74-99) mg/dL POC Glucose (mg/dL) 142 H 164 H 145 H (70-110) mg/dL Calcium (8.4-10.2) mg/dL 09/22/22 09/23/22 09/23/22 Range/Units 22:00 04:51 04:51 WBC 15.7 H (3.8-10.6) k/uL RBC 2.87 L (4.30-5.90) m/uL Hgb 7.9 L (13.0-17.5) gm/dL Hct 24.1 L (39.0-53.0) % RDW 16.5 H (11.5-15.5) % Neutrophils # 13.6 H (1.3-7.7) k/uL Lymphocytes # 0.9 L (1.0-4.8) k/uL APTT 34.9 H (22.0-30.0) sec Sodium 133 L (137-145) mmol/L Creatinine 0.63 L (0.66-1.25) mg/dL Glucose 156 H (74-99) mg/dL POC Glucose (mg/dL) (70-110) mg/dL Calcium 8.0 L (8.4-10.2) mg/dL 09/23/22 09/23/22 Range/Units 04:51 06:14 WBC (3.8-10.6) k/uL RBC (4.30-5.90) m/uL Hgb (13.0-17.5) gm/dL Hct (39.0-53.0) % RDW (11.5-15.5) % Neutrophils # (1.3-7.7) k/uL Lymphocytes # (1.0-4.8) k/uL APTT 31.8 H (22.0-30.0) sec Sodium (137-145) mmol/L Creatinine (0.66-1.25) mg/dL Glucose (74-99) mg/dL POC Glucose (mg/dL) 164 H (70-110) mg/dL Calcium (8.4-10.2) mg/dL Microbiology - Last 24 Hours (Table) 09/20/22 10:05 Gram Stain - Final Abdomen Wound Culture - Final Escherichia coli Ysabel albicans
--- NOTE | 2022-09-23 12:47 | P.PN ---
Subjective Progress Note Date: 09/23/22 Principal diagnosis: Abdominal sepsis This is a 52-year-old -[place] male with history of colon cancer, status post right hemicolectomy for cecal colon cancer on 08/29/2022. Patient was discharged uneventfully on Percocet and Motrin for pain control. Patient was readmitted on 09/03/2022, he was mostly admitted with abdominal pain, distention, nausea and vomiting which started a few days prior to his admission. Patient was seen by surgery on consultation, and he was found to have acute pneumoperitoneum. Yesterday, the patient underwent robotic-assisted laparoscopic extensive lysis of adhesions open exploratory laparotomy with right hemicolectomy and primary anastomosis drainage of abdominal abscess abdominal peritoneal lavage, Margarita spent of a SARAI drain in the pelvis and placement of the incisional wound VAC system. I was notified about this patient from Dr. Moeller yesterday, and considering his abdominal sepsis presentation considering his surgical findings considering the patient was not extubated postoperatively, we admitted the patient to the ICU, manage his ventilator overnight, and I'm evaluating the patient today on consultation. Patient had a relatively uneventful night, did not require any pressors, he did receive fluids and he seems to be hemodynamically stable, remains on mechanical ventilation. His ventilator settings at this point are assist control rate of 18 tidal volume 500 FiO2 40% and PEEP of 5 recent ABG showed a pO2 of 79 pCO2 39 pH of 7.42 patient is on vancomycin and Zosyn for his abdominal sepsis he is on propofol at 65 mcg/kg/m he has good urine output roughly 30-50 mL per hour. Patient has a nasogastric tube applied to suction and he has a wound VAC. He also has a SARAI drain noted. Patient is sedated and calm, however I would recommend a trial of sedation interruption and possibly weaning parameters, if tolerated may consider further weaning and extubation today. Labs today showed relatively normal CBC WBC count is 8.6 hemoglobin is 10.4. Elect lites are normal BUN is 23 creatinine 1.36. Reevaluated today on 09/06/2022, patient remains in the ICU, patient was extubated yesterday and he tolerated extubation well over the last 24 hours. He is on 2 L nasal cannula, not in any distress. Continues to have significant nasogastric output. Patient is to be started on TPN today. Doing better than expected overall. Remains on antibiotics for his abdominal sepsis. White count is 11.8 today hemoglobin is 9.6. Elect lites are normal renal profile is normal with a creatinine of 1.14, improving since admission from 2.14 on admission. Patient is compliant with his incentive spirometry and doing a good job with I- S. Reevaluated today on 09/07/2022, patient remains in the ICU, he feels generally weak, denies any shortness of breath, no cough, no wheezing. Continues to have nasogastric tube in place, and he had 1 50 mL of output overnight. Patient on TPN for nutritional support. His sodium was noted to be elevated today, and I recommended switching his IV fluid to D5W at 100 mL per hour. His labs otherwise are unremarkable. Patient is doing well with incentive spirometry, pain is fairly well controlled. Renal profile is normal, WBC count is 11.8 hemoglobin is 9.6 On today's evaluation of 09/21/2022, the patient is awake and alert and the patient is on room air oxygen. Is afebrile and the white cell count is down trending. He is also on a diet and he remains in the intensive care unit. Ileostomy is functional with an increased output and there is a mucosal slough on its surface. Nevertheless, it is functional. SARAI drains are in place. There is also some active drainage from the mid abdominal incision and the cultures were taken yesterday. There is a fluid collection in his right lower quadrant and is being considered for a CT-guided drainage. We'll coordinate this with the general surgeon. Otherwise, is doing well. Is on room air oxygen. His extubated. The risk was at 17.6 with a hemoglobin 7.5 and a platelet count of 346. BUN is 17 with a creatinine of 0.7. Awake and oriented and communicating. He remains in same antibiotic coverage. Reevaluated today on 09/22/2022, patient remains in the ICU, supposed to have drainage of abdominal abscess by interventional radiology, this may be done later today or tomorrow. In the meantime the patient is on room air, not in any distress, he has a functional ostomy. But yesterday he had venous Doppler of th e upper extremities and he was found to have left upper extremity DVT. I'm strongly recommending that the patient get started on heparin, unless general surgery on the case season options contraindication to heparin. The heparin could be placed on hold few hours before his scheduled abdominal abscess drainage by interventional radiology. Patient continues to have leukocytosis with WBC count 19.3 hemoglobin is 8.1. Elect lites are normal renal profile is normal Reevaluated today on , patient remains in the ICU, he is actually on room air, does not seem to be in any distress, he is on heparin drip which I will transition to Lovenox 80 mg subcu twice a day, apparently the patient could not have his abdominal fluid collection drained by interventional radiology as there is no interventional radiologists who could do this procedure, his surgeon is very well aware of this, and she is planning now to hold on the procedure and repeat CT of the abdomen and pelvis in few days. Pulmonary-valdez the patient is relatively asymptomatic, he is denying any shortness of breath no cough no wheezing, patient remains on TPN via a left IJ triple-lumen catheter, however patient may eventually need a PICC line this could be done in the right arm since he developed DVT in the left upper extremity. WBC count is 15.7 hemoglobin is 7.9 his electrolytes are normal renal profile is normal Objective - Vital Signs Vital signs: Vital Signs Temp 98.6 F 09/23/22 12:00 Pulse 107 H 09/23/22 12:14 Resp 18 09/23/22 12:14 BP 119/84 09/23/22 12:00 Pulse Ox 98 09/23/22 12:04 FiO2 40 09/17/22 10:41 Intake & Output 09/22/22 09/23/22 09/23/22 18:59 06:59 18:59 Intake Total 2183.667 2537.624 864.924 Output Total 1560 1975 1000 Balance 623.667 562.624 -135.076 Weight 98.1 kg Intake: IV 820 360 160 0.9 @ KVO 220 260 60 Anidulafungin 100 mg In 100 Sodium Chloride 0.9% 100 ml @ 84 mls/hr IVPB DAILY [facility] Rx#:[id number] Potassium Phosphate 3 600 100 mmol Sodium Acetate 40 meq Calcium Gluconate 1 gm In Amino Acids 5 %/ Dextrose 20 % 1,000 ml @ 100 mls/hr IV .BY DURATION [facility] Rx#: [id number] Intake, IV Titration 892.530 9247.624 454.924 Amount Anidulafungin 100 mg In 100 100 Sodium Chloride 0.9% 100 ml @ 84 mls/hr IVPB DAILY [facility] Rx#:[id number] DAPTOmycin 500 mg In 100 Sodium Chloride 0.9% 50 ml @ 100 mls/hr IVPB Q24HR [facility] Rx#:[id number] Heparin Sod,Pork in 0.45% 63.667 197.624 54.924 NaCl 25,000 unit In 0.45 % NaCl 1 250ml.bag @ 10. 05 UNITS/KG/HR 10 mls/hr IV .Q24H [facility] Rx#: [id number] Magnesium Sulfate-D5w Pmx 100 1 gm In Dextrose/Water 1 100ml.bag @ 100 mls/hr IVPB ONCE ONE Rx#: [id number] Potassium Phosphate 3 700 1100 mmol Sodium Acetate 64 meq Potassium Chloride 6 meq Calcium Gluconate 1 gm In Amino Acids 5 %/ Dextrose 20 % 1,000 ml @ 100 mls/hr IV .BY DURATION [facility] Rx#: [id number] Potassium Phosphate 3 300 mmol Sodium Acetate 80 meq Potassium Chloride 12 meq Magnesium Sulfate gm 0.5 gm Calcium Gluconate 1 gm In Amino Acids 5 %/ Dextrose 20 % 1,000 ml @ 100 mls/hr IV .BY DURATION [facility] Rx#: [id number] Oral 400 780 250 Output: Drainage 0 Left Lower Abdomen 0 Left Upper Abdomen 0 Urine 1060 1650 500 Stool 500 325 500 Other: Voiding Method Indwelling Catheter Indwelling Catheter Indwelling Catheter ABP, PAP, CO, CI - Last Documented Arterial Blood Pressure 176/96 - Exam Physical Exam: Revealed a 52-year-old male in no distress on room air Head: Atraumatic, normocephalic. HEENT:[Neck is supple.] [No neck masses.] [No thyromegaly.] [No JVD.] Chest: [Clear throughout, no crackles, no rhonchi, no wheezes.] Cardiac Exam: [Normal S1 and S2, no S3 gallop, no murmur.] Abdomen: [Postsurgical, slightly tender, Soft, no megaly, no rebound, no guarding, negative bowel sounds, ostomy seems to be functional, SARAI drain has been removed Extremities: [No clubbing, no edema, no cyanosis.] Neurological Exam: [No focal neurologic deficit.] Alert and oriented 3. Psychiatric: Normal mood affect and normal mental status examination. - Labs CBC & Chem 7: 09/23/22 04:51 09/23/22 04:51 Labs: Abnormal Lab Results - Last 24 Hours (Table) 09/22/22 09/22/22 09/22/22 Range/Units 16:37 20:38 22:00 WBC (3.8-10.6) k/uL RBC (4.30-5.90) m/uL Hgb (13.0-17.5) gm/dL Hct (39.0-53.0) % RDW (11.5-15.5) % Neutrophils # (1.3-7.7) k/uL Lymphocytes # (1.0-4.8) k/uL APTT 34.9 H (22.0-30.0) sec Sodium (137-145) mmol/L Creatinine (0.66-1.25) mg/dL Glucose (74-99) mg/dL POC Glucose (mg/dL) 164 H 145 H (70-110) mg/dL Calcium (8.4-10.2) mg/dL 09/23/22 09/23/22 09/23/22 Range/Units 04:51 04:51 04:51 WBC 15.7 H (3.8-10.6) k/uL RBC 2.87 L (4.30-5.90) m/uL Hgb 7.9 L (13.0-17.5) gm/dL Hct 24.1 L (39.0-53.0) % RDW 16.5 H (11.5-15.5) % Neutrophils # 13.6 H (1.3-7.7) k/uL Lymphocytes # 0.9 L (1.0-4.8) k/uL APTT 31.8 H (22.0-30.0) sec Sodium 133 L (137-145) mmol/L Creatinine 0.63 L (0.66-1.25) mg/dL Glucose 156 H (74-99) mg/dL POC Glucose (mg/dL) (70-110) mg/dL Calcium 8.0 L (8.4-10.2) mg/dL 09/23/22 09/23/22 Range/Units 06:14 11:26 WBC (3.8-10.6) k/uL RBC (4.30-5.90) m/uL Hgb (13.0-17.5) gm/dL Hct (39.0-53.0) % RDW (11.5-15.5) % Neutrophils # (1.3-7.7) k/uL Lymphocytes # (1.0-4.8) k/uL APTT (22.0-30.0) sec Sodium (137-145) mmol/L Creatinine (0.66-1.25) mg/dL Glucose (74-99) mg/dL POC Glucose (mg/dL) 164 H 134 H (70-110) mg/dL Calcium (8.4-10.2) mg/dL Microbiology - Last 24 Hours (Table) 09/20/22 10:05 Gram Stain - Final Abdomen Wound Culture - Final Escherichia coli Ysabel albicans Assessment and Plan Assessment: Impression: Acute pneumoperitoneum, secondary to perforated colonic diverticulum and transverse colon Severe abdominal sepsis, secondary to E. coli, pseudomonas aeruginosa, Enterococcus faecium, remains on daptomycin and Zosyn Abdominal wound dehiscence with stool and air leak through the incision on 09/14/2022. He was returned to the operating room that same day and had undergone an exploratory laparotomy and extensive lysis of adhesions, resection of ilealcolic anastomosis, drainage of perihepatic loculated abscess with removal of CT-guided drain, small bowel resection for small bowel necrosis/perforation, placement of ileostomy, abdominal washout with 7 L of normal saline, debridement of abdominal wall midline incision, patient of the Moiz-Hanley in the right anterior lateral hepatic space, placement of Moiz- Hanley drain in the right pelvis, quarter-inch Berthoud drain in the subcutaneous tissue midline incision and placement of Provena incisional wound VAC Episodic fever, rule out underlying ongoing intra-abdominal infection/abscess formation. The CAT scan of the abdomen was repeated on 09/18/2022 and the findings were essentially reviewed and noted. Minimal amount of purulent drainage can be from the inferior edge of the wound. Alfredo are all in place. The patient is currently on a combination of Zosyn, daptomycin and Eraxis. History of colon cancer status post resection Acute kidney injury Acute lactic acidosis secondary to sepsis Intra-abdominal abscess Abdominal ascites History of sarcoidosis Status post robotic-assisted laparoscopy with extensive lysis of adhesions, right hemicolectomy and primary anastomosis and drainage of abdominal abscess abdominal peritoneal lavage and placement of SARAI drain as well as incisional wound VAC system Sinus tachycardia secondary to sepsis Left upper extremity deep vein thrombosis with axillary and subclavian vein thrombosis Intra-abdominal fluid collection/abscess secondary to above Recommendation: Continue present antibiotics as per infectious disease on the case. Change IV heparin to Lovenox 80 mg subcu twice a day General surgery on the case to decide regarding the abdominal fluid collection and whether the patient needs to be transferred anywhere else for related since we have no interventional radiologist to do this. Continue Zosyn and daptomycin and Eraxis Continue incentive spirometry Continue GI and DVT prophylaxis Transfer patient to a medical surgical floor Advance diet as tolerated We'll continue to follow Time with Patient: Less than 30
[2022-09-23] MEDS ORDERED: LIDOCAINE 1% INJ 10MG/ML (5 ML VIAL-PF) SQ ONE (12:53)
[2022-09-23 16:15] LABS: Glucose,Whole Blood 129 mg/dL (70-110)
--- NOTE | 2022-09-23 16:21 | IR ---
EXAMINATION TYPE: IR cvc insert >=5 years DATE OF EXAM: 09/23/2022 CLINICAL HISTORY: PICC line insertion. TECHNIQUE: Fluoroscopy. COMPARISON: None. FINDINGS: Fluoroscopic guidance was provided during PICC line insertion procedure performed by Dr. Christiano petty. A total of 6 seconds of fluoroscopic time was utilized during the procedure and 26 spot imag es are acquired. Please refer to procedure note for further details. Total DAP = 0.004. IMPRESSION: As Above.
--- NOTE | 2022-09-23 17:21 | P.PCN ---
Date of Procedure: 09/23/22 Preoperative Diagnosis: Bowel perforation, intra-abdominal abscess and need for antibiotics and TPN Postoperative Diagnosis: Same Procedure(s) Performed: Ultrasound guided right basilic vein peripherally inserted central venous catheter placement Anesthesia: local Surgeon: Feroz Galeas Estimated Blood Loss (ml): 2 Pathology: none sent Condition: stable Disposition: ICU Indications for Procedure: 52 year old male with previous perforated bowel and exploratory laparotomy curr ently being treated in the hospital for intra-abdominal abscess with antibiotics and TPN presents to the veterinary laboratory technician for placement of PICC line. Description of Procedure: After written and informed consent was obtained the patient and all risks, benefits and competitions were described the patient was brought to the Space Officer and laid in a supine position with his right arm outstretched on an armboard. The area of the right arm was prepped and draped in usual sterile fashion. Timeout was performed in normal fashion. Utilizing ultrasound the right basilic vein was visualized and shown to be compressible without any visible thrombus. Under ultrasound guidance the basilic vein was then cannulated with a micropuncture needle and wire was placed under direct visualization of fluoroscopy. Introducer sheath was then placed. The catheter was measured and cut to the appropriate length which was 45 cm. The catheter was then guided through the breakaway sheath and the sheath was removed with good positioning was visualized under fluoroscopy. The catheter was pulled and flushed easily. It was then secured in place in normal fashion. Patient tolerated the procedure well was sent back to his room for recovery.
[2022-09-23 21:15] LABS: Glucose,Whole Blood 152 mg/dL (70-110)
--- NOTE | 2022-09-23 22:33 | P.PN ---
Subjective This is a 52 year old male monitored in the intensive care unit postoperative day #4 lysis of adhesions and right hemicolectomy due to bowel perforation. Patient had end to end anastamosis. Has not had bowel movement, had KUB xray today showing multiple dilated small bowel loops possible ileus vs. obstruction. General surgery recommending patient to be NPO at this time. Heart rate remains elevated in the 120s and patient switched to IV lopressor. Remains on IV daptomycin and IV zosyn for positive peritoneal fluid culture with E. Coli, enterococcus and pseudomonas. Blood culture negative so far. Patient remains on D5 water at 100 mls/hr, sodium is slightly improved today down to 146. Continues on TPN, NG tube has been discontinued. Accuchecks switched to Q6h and small dose of levemir HS has been added. SARAI drain in place with serous drainage. Patient febrile today up to 101.9, encouraged to continue with incentive spirometer. Patient has wound vac in place to continuous suction, plan to ambulate around the room and up in the chair today. 09/09/2022 Patient is evaluated today in the ICU resting in bed. Alert x 3. Asking about discharge. Repeat blood culture is pending patient remains on IV antibiotics. White count up to 19.7 today. Patient reports BM yesterday and passing some gas today. Abdomen is more distended. Surgery recommending NG tube today. Patient remains NPO. Midline incisional wound vac in place. Patient remains with fever, using incentive spirometer reaching 1200. Continues on TPN. 09/10/2022 Patient remains in the intensive care unit. Patient continues to be NPO. 3 attempts were made to pass NG tube and were unsuccessful. Patient did have 2 BMs yesterday, abdomen remains significantly distended. Repeat abdominal pelvis CT reveals loculated and nonloculated perihepatic collections some of which demonst rate mildly thickened almeida with internal foci of air. Perihepatic abscesses are not excluded. Persistent dilation of small bowel with small bowel wall thickening and inflammatory change at the enterocolonic anastomotic site. Persistent postoperative ileus and/or obstructive changes not excluded. Adjacent drain is in place. Contrast does not opacify the anastomotic site and therefore leak is difficult to evaluate or exclude. Small amt of free air persists improved from prior study. White count 18.3 today, electrolytes are normalized and blood glucose improved to 115. Patient remains on TPN. Blood culture remains negative. Remains on IV zosyn and IV daptomycin. Temp of 100.4 and remains tachy cardic 121, blood pressure stable at 131/94. 09/11/2022 Patient is evaluated today in the intensive care unit. Remains tachycardic and T-Max of 100.7 overnight. Scheduled to undergo drainage and placement of drainage tube to the perihepatic abscess noted on CT imaging with IR today. White count down to 16.0 today. Continues on IV daptoymcin and IV vancomycin. Per nursing did have a small BM overnight. 09/12/2022 Patient evaluated today in the intensive care unit. Underwent CT guided abscess drainage with 100 mls of purulent drainage and also had midline fransisca removed at the top of incision with some purulent drainage. Patients white count is down to 12.8 today. Kidney function stable, sodium 135 today. Patient has been cleared to start diet, having small BMs. Metoprolol will be changed to oral. Fever is improving. Cultures are pending from the abscess and ID is following closely. 09/13/2022 Patient continues to be monitored closely in the intensive care unit. Patient continues with significant tachycardia not improving with metoprolol and continues with abdominal distention. Cardiology was placed on consultation for the tachycardia and patient has been transitioned back to IV lopressor. Wound cultures from the CT guided are showing gram negative bacilli. This morning per nursing the abdomen was more distended and patient had felt a popping sensation with evidence of leaking of brown colored drainage from the surgical incision and the drainage bag. The surgical incision was opened yesterday at the bedside by surgery. Patient was taken for emergent exploratory laporotomy. White count is 17.9 today, sodium 134, potassium 5.0. Kidney function remains stable. Patient has been continued to be NPO no NG tube present. Labs and vitals reviewed. 09/14/2022 Patient is evaluated today he is currently in the intensive care unit intubated and sedated he is on combination of nimbex and propofol. Patient is currently on the mechanical ventilator with 40% FiO2. Patient is also requiring levophed and vasopression. Patient continues on IV daptomycin and IV zosyn. The wound culture shows E.Coli. Patient underwent extensive exploratory laporotomy yesterday with lysis of adhesions, resection of the ileocolic anastamosis due to anastomotic leak, small bowel resection for small bowel necrosis/peforation with placement of ileostomy. Patient had nataliia-stone drain x 2 placed and alpa drain placed. Abdomen was closed with a wound vac. Temp is T-max 100.4 today. Labs rev eal white count of 20.1, hgb 9.3, sodium 131, potassium at 6.6 and 5.9, BUN 32, creatinine 2.15, blood glucose 394, calcium 6.4, magnesium 1.4. Patient received IV magnesium, IV gluconate, and IV insulin humulin N. 09/15/2022 Patient is seen in a follow-up continues to be in the ICU with multiple medical consultations following. Patient continues on mechanical ventilation with an FiO2 of 40% and PEEP is 5. Patient is maintained on IV antibiotics in the form of dapto and Zosyn with Infectious Disease Following Closely and Culture Showing E. coli with Multiple Sensitivities. Patient Continues to Have Fevers and White Count Elevated Slightly Trending down to 18 Today. Recent Ileostomy Placed with No Function at This Time and Patient Is Maintained on TPN. Patient Continues with Drains along with a Wound VAC of the Abdomen. Hemoglobin Trending down and upon Stopping Currently Would Recommend Monitoring Closely and Transfuse of 7 or Less. Nephrology Following As Well This Patient's Kidney Functions Worsened Although Appear Better Today. Patient Remains Tachycardic on the Monitor and Troponins Have Been Negative. Recommend Continuing with Accu-Cheks per Protocol and Tight Glycemic Control. 09/16/2022 Patient is seen and evaluated in follow-up today and continues to remain on mechanical ventilation maintained on fentanyl and propofol under sedation. FiO2 is 40% with a PEEP of 5. Hemoglobin critically low at 6.3 and receiving a unit of PRBCs. Would recommend a dose of Lasix after unit of blood. Patient's overall swelling showing some improvement on chest x-ray continues to so show some stable pleural effusions. No bowel activity per nursing staff noted as of yet in the ostomy. Kidney functions are trending down. Patient is continuing to have temps and would recommend repeat blood cultures, sputum culture, urine culture. 09/17/2022 Patient is seen in follow-up this morning continues to be in the ICU on mechanical ventilation and undergoing sedation holidays. FiO2 is 40% with a PEEP of 5. Per nursing staff patient is following commands on sedation holiday but not quite ready for weaning per pulmonary plant nursery worker. Patient's hemoglobin is improved today at 7.6 status post 1 unit of PRBC yesterday. White count remains slightly elevated at 17.4 and patient continues to have fevers. Infectious disease following closely and repeat blood cultures along with sputum culture have all been sent. Initial culture showing some E. coli and patient is maintained on IV antibiotics in the form of daptomycin, Eraxis, and Zosyn as well awaiting finalized cultures. Patient is noted to have some loose liquid stool noted in the ostomy and is maintained on TPN. Patient is currently off pressor support as well. Prognosis Remains guarded. 09/18/2022 Patient is seen and evaluated in follow-up today continues to be in the ICU was recently extubated yesterday successfully currently maintained on 3 L via nasal cannula. Patient is off pressor support and blood pressure is mildly hypertensive and patient continues to be tacky. Patient most recent fever was last night of 100.4. Patient is maintained on IV antibiotics with infectious disease following and preliminary sputum cultures repeated show gram-negative an initial wound culture showing E. coli along with Pseudomonas and enterococcus. Patient had copious amounts of drainage from ostomy per nursing staff with general surgery is admitting and repeat CT abdomen is ordered and pending at th is time. C. diff sample also being sent which is pending at this time. Patient is maintained on TPN and will continue on strict nothing by mouth per surgery recommendations until Dr. Helton advances. WBC is 19.2 and hemoglobin is 8.2, sodium 142 with a potassium of 3.9 and current creatinine is 0.94. Magnesium is 2.1. Chest x-ray today shows bilateral infiltrates and small pleural effusions are stable. 09/19/2022 Patient admitted to the hospital for perforated colonic diverticulum after recent right hemicolectomy for his colon cancer and discharge home. Patient status post laparoscopic right hemicolectomy and primary anastomosis and drainage of abscess. This has been scanning of the abdominal and yesterday showing right lower quadrant seroma on abscesses and dilated small bowel which could be ileus versus obstruction. The patient with evidence of positive cultures including sputum with E. coli on wound culture with E. coli HER FLUID WITH E. COLI AND PSEUDOMONAS. PATIENT On MULTIPLE ANTIBIOTIC INCLUDING Eraxis, daptomycin and Zosyn 09/20/2029 Patient improving slowly and gradually Patient is more awake and relaxed, no new complaints Just tolerating diet and will be advanced as per surgery team No bowel movement but had high output ileostomy in the right lower quadrant still slightly tachycardic and tachypneic TPN and place 09/21/2022 Patient awake alert. He somewhat tolerates diet between 25 and 75%, it looks like preventing him from eating well he is infection and abdominal sepsis going unrelated to his perforated viscus on admission. Also he has high output RLQ related to infection as well. He has low-grade temperature 99.9 today and he is a broad-spectrum antibiotic of daptomycin, Zosyn and Eraxis. He has multiple cultures positive for E. coli, recent wound culture also growing gram-negative bacilli. TPN is in place, Cruz catheter in place 09/22/2022 Patient clinically is improving, his more more relaxed more comfortable and his eating more between 25-27% within he says that his progress and eating more However he lost his appetite when he was informed that he has a clot in his left upper extremity. Patient was started on heparin drip Also surgery team planned to undergo drainage of this abdominal abscess. An event that he remains on broad-spectrum antibiotics the same once as above. Cruz catheter in a Place 09/23/2022 No significant change from yesterday, on the contrary he continued to improve slowly and gradually, every day he is more awake and energetic and eats more. History of have high stool output from his ileostomy. No abdominal pain. Patient encouraged to eat. TPN still in place. Remains on multiple antibiotics with daptomycin, Zosyn and Eraxis. Heparin drip is wished Lovenox 100 mg twice daily subcutaneously. PICC line placed on the right arm. Surgery team on the case and they recommended drainage of fluid from the intra- abdominal cavity, however there is no IR service available currently in this facility, we will defer to surgery team further management. Patient will be transferred out of the ICU to the general medical floor today Objective - Vital Signs Vital signs: Vital Signs Temp 98.6 F 09/23/22 12:00 Pulse 107 H 09/23/22 12:14 Resp 18 09/23/22 12:14 BP 119/84 09/23/22 12:00 Pulse Ox 98 09/23/22 12:04 FiO2 40 09/17/22 10:41 Intake & Output 09/22/22 09/23/22 09/23/22 18:59 06:59 18:59 Intake Total 2183.667 2537.624 864.924 Output Total 1560 1975 1000 Balance 623.667 562.624 -135.076 Weight 98.1 kg 98.1 kg Intake: IV 820 360 160 0.9 @ KVO 220 260 60 Anidulafungin 100 mg In 100 Sodium Chloride 0.9% 100 ml @ 84 mls/hr IVPB DAILY [facility] Rx#:[id number] Potassium Phosphate 3 600 100 mmol Sodium Acetate 40 meq Calcium Gluconate 1 gm In Amino Acids 5 %/ Dextrose 20 % 1,000 ml @ 100 mls/hr IV .BY DURATION [facility] Rx#: [id number] Intake, IV Titration 408.574 2827.624 454.924 Amount Anidulafungin 100 mg In 100 100 Sodium Chloride 0.9% 100 ml @ 84 mls/hr IVPB DAILY [facility] Rx#:[id number] DAPTOmycin 500 mg In 100 Sodium Chloride 0.9% 50 ml @ 100 mls/hr IVPB Q24HR [facility] Rx#:[id number] Heparin Sod,Pork in 0.45% 63.667 197.624 54.924 NaCl 25,000 unit In 0.45 % NaCl 1 250ml.bag @ 10. 05 UNITS/KG/HR 10 mls/hr IV .Q24H [facility] Rx#: [id number] Magnesium Sulfate-D5w Pmx 100 1 gm In Dextrose/Water 1 100ml.bag @ 100 mls/hr IVPB ONCE ONE Rx#: [id number] Potassium Phosphate 3 700 1100 mmol Sodium Acetate 64 meq Potassium Chloride 6 meq Calcium Gluconate 1 gm In Amino Acids 5 %/ Dextrose 20 % 1,000 ml @ 100 mls/hr IV .BY DURATION [facility] Rx#: [id number] Potassium Phosphate 3 300 mmol Sodium Acetate 80 meq Potassium Chloride 12 meq Magnesium Sulfate gm 0.5 gm Calcium Gluconate 1 gm In Amino Acids 5 %/ Dextrose 20 % 1,000 ml @ 100 mls/hr IV .BY DURATION [facility] Rx#: [id number] Oral 400 780 250 Output: Drainage 0 Left Lower Abdomen 0 Left Upper Abdomen 0 Urine 1060 1650 500 Stool 500 325 500 Other: Voiding Method Indwelling Catheter Indwelling Catheter Indwelling Catheter ABP, PAP, CO, CI - Last Documented Arterial Blood Pressure 176/96 - Exam -GENERAL: The patient is drowsy, not in any acute distress. Well developed, well nourished. HEENT: Pupils are round and equally reacting to light. EOMI. No scleral icterus. No conjunctival pallor. Normocephalic, atraumatic. No pharyngeal erythema. No thyromegaly. CARDIOVASCULAR: S1 and S2 present. No murmurs, rubs, or gallops. PULMONARY: Chest is clear to auscultation, no wheezing . no crackles. -ABDOMEN: Soft, nontender, nondistended, normoactive bowel sounds. No palpable organomegaly. Healing surgical wound was dressed in a Place, Cruz catheter in place MUSCULOSKELETAL: No joint swelling or deformity. EXTREMITIES: No cyanosis, clubbing, or pedal edema. NEUROLOGICAL: Gross neurological examination did not reveal any focal deficits. SKIN: No rashes. no petechiae. - Labs CBC & Chem 7: 09/23/22 04:51 09/23/22 04:51 Labs: Abnormal Lab Results - Last 24 Hours (Table) 09/22/22 09/22/22 09/22/22 Range/Units 16:37 20:38 22:00 WBC (3.8-10.6) k/uL RBC (4.30-5.90) m/uL Hgb (13.0-17.5) gm/dL Hct (39.0-53.0) % RDW (11.5-15.5) % Neutrophils # (1.3-7.7) k/uL Lymphocytes # (1.0-4.8) k/uL APTT 34.9 H (22.0-30.0) sec Sodium (137-145) mmol/L Creatinine (0.66-1.25) mg/dL Glucose (74-99) mg/dL POC Glucose (mg/dL) 164 H 145 H (70-110) mg/dL Calcium (8.4-10.2) mg/dL 09/23/22 09/23/22 09/23/22 Range/Units 04:51 04:51 04:51 WBC 15.7 H (3.8-10.6) k/uL RBC 2.87 L (4.30-5.90) m/uL Hgb 7.9 L (13.0-17.5) gm/dL Hct 24.1 L (39.0-53.0) % RDW 16.5 H (11.5-15.5) % Neutrophils # 13.6 H (1.3-7.7) k/uL Lymphocytes # 0.9 L (1.0-4.8) k/uL APTT 31.8 H (22.0-30.0) sec Sodium 133 L (137-145) mmol/L Creatinine 0.63 L (0.66-1.25) mg/dL Glucose 156 H (74-99) mg/dL POC Glucose (mg/dL) (70-110) mg/dL Calcium 8.0 L (8.4-10.2) mg/dL 09/23/22 09/23/22 Range/Units 06:14 11:26 WBC (3.8-10.6) k/uL RBC (4.30-5.90) m/uL Hgb (13.0-17.5) gm/dL Hct (39.0-53.0) % RDW (11.5-15.5) % Neutrophils # (1.3-7.7) k/uL Lymphocytes # (1.0-4.8) k/uL APTT (22.0-30.0) sec Sodium (137-145) mmol/L Creatinine (0.66-1.25) mg/dL Glucose (74-99) mg/dL POC Glucose (mg/dL) 164 H 134 H (70-110) mg/dL Calcium (8.4-10.2) mg/dL Microbiology - Last 24 Hours (Table) 09/20/22 10:05 Gram Stain - Final Abdomen Wound Culture - Final Escherichia coli Ysabel albicans Assessment and Plan Assessment: Perforated colonic diverticulum of the transverse: With recent history of laparoscopic hemicolectomy and primary anastomosis for colon cancer Neurologic small bowel could be ileus versus obstruction Left upper extremity DVT thrombosis Right lower quadrant seroma versus abscess Abdominal sepsis secondary to above Anemia Leukocytosis Plan: Start heparin drip Plan to drain intra-abdominal abscess by interventional radiologist Continue with antibiotic axis, daptomycin and Zosyn Encourage diet Continue TPN Multiple consultants including critical care pulmonary, infectious disease and surgery team Continue with Levemir insulin Labs and medication were reviewed.. Continue same treatment. Continue with symptomatic treatment. Resume home medication. Monitor labs and vitals. DVT and GI prophylaxis. Further recommendations as per clinical course of the patient DVT prophylaxis: heparin GI Prophylaxis: Ppi Prognosis is guarded
[2022-09-23] MEDS: ENOXAPARIN 100 MG/ML SYRINGE SQ SCH (22:39)
[2022-09-24] MEDS: HYDROmorphone 1 MG/ML 1 ML SYRINGE IVP PRN ×5 (01:12→22:03)
[2022-09-24] MEDS: [UNRECOGNIZED DRUG - REMARK] IV SCH ×24 (02:42→22:00)
[2022-09-24] MEDS: MEROPENEM 1 GM in SODIUM CHLORIDE 0.9% 100 ML IVPB SCH ×3 (05:09→22:01)
[2022-09-24 06:14] LABS: Glucose,Whole Blood 152 mg/dL (70-110)
[2022-09-24] MEDS: INSULIN DETEMIR (LEVEMIR) 100 UNIT/ML SYR SQ SCH ×2 (06:26→22:10)
[2022-09-24] MEDS: INSULIN ASPART (NovoLOG) 100 UNIT/ML VIAL SQ SCH ×8 (06:26→22:09)
[2022-09-24 07:06] LABS: African American GFR (CKD) >90 (>60 ml/min/1.73 sqM); Anion Gap 9 mmol/L; Blood Urea Nitrogen 15 mg/dL (9-20); Calcium 8.3 mg/dL (8.4-10.2); Carbon Dioxide 24 mmol/L (22-30); Chloride 103 mmol/L (98-107); Glucose 134 mg/dL (74-99); Non-African American GFR(CKD) >90 (>60 ml/min/1.73 sqM); Potassium 4.3 mmol/L (3.5-5.1); Sodium 136 mmol/L (137-145)
[2022-09-24] MEDS: PANTOPRAZOLE 40 MG/10 ML VIAL IV SCH (08:55)
[2022-09-24] MEDS: METOPROLOL TARTRATE 50 MG TAB PO SCH ×2 (08:56→23:09)
[2022-09-24] MEDS: ENOXAPARIN 100 MG/ML SYRINGE SQ SCH ×2 (09:03→22:04)
[2022-09-24] MEDS: DAPTOmycin 500 MG in SODIUM CHLORIDE 0.9% 50 ML IVPB SCH (09:16)
[2022-09-24 09:49] LABS: Anisocytosis Slight; Basophils % (A) 0 %; Eosinophils # (A) 0.4 k/uL (0-0.7); Eosinophils % (A) 3 %; HCT 25.4 % (39.0-53.0); HGB 8.4 gm/dL (13.0-17.5); Hypochromasia Slight; Lymphocytes % (A) 7 %; MCH 27.7 pg (25.0-35.0); MCHC 33.1 g/dL (31.0-37.0); MCV 83.8 fL (80.0-100.0); Mean Platelet Volume 8.2; Monocytes # (A) 0.7 k/uL (0-1.0); Monocytes % (A) 5 %; Neutrophils # (A) 12.3 k/uL (1.3-7.7); Neutrophils % (A) 85 %; Platelet Count 251 k/uL (150-450); RBC 3.03 m/uL (4.30-5.90); WBC 14.5 k/uL (3.8-10.6)
[2022-09-24] MEDS: IPRATROPIUM-ALBUTEROL 3 ML NEB INHALATION SCH ×4 (09:50→20:48)
[2022-09-24] MEDS: ALPRAZolam 0.25 MG TAB PO PRN ×2 (10:37→23:18)
[2022-09-24] MEDS: ANIDULAFUNGIN 100 MG in SODIUM CHLORIDE 0.9% 100 ML IVPB SCH (10:37)
[2022-09-24 11:10] LABS: Glucose,Whole Blood 177 mg/dL (70-110)
--- NOTE | 2022-09-24 11:16 | P.PN ---
Subjective Progress Note Date: 09/24/22 This is a 52-year-old -[place] male with history of colon cancer, status post right hemicolectomy for cecal colon cancer on 08/29/2022. Patient was discharged uneventfully on Percocet and Motrin for pain control. Patient was readmitted on 09/03/2022, he was mostly admitted with abdominal pain, distention, nausea and vomiting which started a few days prior to his admission. Patient was seen by surgery on consultation, and he was found to have acute pneumoperitoneum. Yesterday, the patient underwent robotic-assisted laparoscopic extensive lysis of adhesions open exploratory laparotomy with right hemicolectomy and primary anastomosis drainage of abdominal abscess abdominal peritoneal lavage, Margarita spent of a SARAI drain in the pelvis and placement of the incisional wound VAC system. I was notified about this patient from Dr. Moeller yesterday, and considering his abdominal sepsis presentation considering his surgical findings considering the patient was not extubated postoperatively, we admitted the patient to the ICU, manage his ventilator overnight, and I'm evaluating the patient today on consultation. Patient had a relatively uneventful night, did not require any pressors, he did receive fluids and he seems to be hemodynamically stable, remains on mechanical ventilation. His ventilator settings at this point are assist control rate of 18 tidal volume 500 FiO2 40% and PEEP of 5 recent ABG showed a pO2 of 79 pCO2 39 pH of 7.42 patient is on vancomycin and Zosyn for his abdominal sepsis he is on propofol at 65 mcg/kg/m he has good urine output roughly 30-50 mL per hour. Patient has a nasogastric tube applied to suction and he has a wound VAC. He also has a SARAI drain noted. Patient is sedated and calm, however I would recommend a trial of sedation interruption and possibly weaning parameters, if tolerated may consider further weaning and extubation today. Labs today showed relatively normal CBC WBC count is 8.6 hemoglobin is 10.4. Elect lites are normal BUN is 23 creatinine 1.36. Reevaluated today on 09/06/2022, patient remains in the ICU, patient was extub ated yesterday and he tolerated extubation well over the last 24 hours. He is on 2 L nasal cannula, not in any distress. Continues to have significant nasogastric output. Patient is to be started on TPN today. Doing better than expected overall. Remains on antibiotics for his abdominal sepsis. White count is 11.8 today hemoglobin is 9.6. Elect lites are normal renal profile is normal with a creatinine of 1.14, improving since admission from 2.14 on admission. Patient is compliant with his incentive spirometry and doing a good job with I- S. Reevaluated today on 09/07/2022, patient remains in the ICU, he feels generally weak, denies any shortness of breath, no cough, no wheezing. Continues to have nasogastric tube in place, and he had 1 50 mL of output overnight. Patient on TPN for nutritional support. His sodium was noted to be elevated today, and I recommended switching his IV fluid to D5W at 100 mL per hour. His labs otherwise are unremarkable. Patient is doing well with incentive spirometry, pain is fairly well controlled. Renal profile is normal, WBC count is 11.8 h emoglobin is 9.6 The patient is seen today 09/08/2022 in follow-up in the intensive care unit. He is currently resting comfortably in bed. Awake and alert in no acute distress. He is maintaining good O2 saturations in the mid 90s on room air. He is febrile with a temp of 101.9. Tachycardic. Hypertensive. Blood cultures pending. Abdominal x-ray revealed persistent markedly dilated small bowel loops. Peritoneal fluid cultures were positive for E. coli, Pseudomonas aeruginosa, enterococcus faecium. He remains nothing by mouth. He is continued on TPN and lipids. Antibiotics in the form of Zosyn and now daptomycin. Remains on heparin for DVT prophylaxis. He is up ambulating with assistance. The patient is seen today 09/09/2022 in follow-up in the intensive care unit. He is currently resting comfortably in bed. Awake and alert in no acute distress. White count 19.7. Hemoglobin 9.4. Platelets 245. Sodium 141. Potassium 3.9. Bicarb 24. BUN 14. Creatinine 0.78. Glucose 139. He is maintaining good O2 saturations in the mid 90s on room air. Continues with a low-grade fever currently at 100.8. Tachycardic. He is continued on TPN 108 ML's per hour. He has D5W it 100 ML's per hour. 0.9 normal setting at KVO. He is on antibiotics in the form of Zosyn and daptomycin. He is working well with the incentive spirometer. Remains on strict nothing by mouth per surgical services. The patient is seen today 09/10/2022 in follow-up in the intensive care unit. He is currently resting fairly comfortably in bed. Awake and alert in no acute distress. Chest x-ray shows improving bilateral infiltrate and small effusion. He continues to maintain good O2 saturations in the 90s on room air. Some abdominal distention and discomfort. Follow-up computed tomography scan pending. Still have an elevated temperatures up to 102.4 last night. White count 18.3. Hemoglobin 8.8. Sodium 139. Potassium 4.0. Bicarb 24. BUN 14. Creatinine 0.83. He remains on daptomycin and Zosyn. Being nourished with TPN at 108 ML's per hour. Heparin for DVT prophylaxis. The patient is seen today 09/11/2022 in follow-up in the intensive care unit. He is currently resting in bed. Awake and alert in no acute distress. Maintaining good O2 saturations in the 90s on room air. His initial peritoneal fluid cultures were positive for E. coli, pseudomonas aeruginosa, enterococcus faecium. Follow-up blood cultures are pending. He did have issues with abdominal distention. Follow-up computed tomography scan revealed loculated and non-loculated. Hepatic collections some of which demonstrate mildly thickened almeida with internal foci of air.. Hepatic abscesses are not excluded. Persistent dilatation of the small bowel small bowel wall thickening and inflammatory change in the interval colonic anastomotic site. Persistent postoperative ileus and/or obstructive change is not excluded. Adjacent drains in place. Leak is difficult to exclude. Small amount of free air persistent but improved. Chest x-ray reveals stable bilateral lower lobe infiltrate and small effusion. Left-sided PICC line remains in place. White count 16.0. Hemoglobin 9.1. Platelets 270. Sodium 136. Potassium 4.3. Bicarb 24. BUN 15. Creatinine 0.90. Glucose 124. He is continued on daptomycin and Zosyn. Continues to work with the incentive spirometer. Heparin for DVT prophylaxis. Being nourished with TPN at 108 ML's per hour. The patient is seen today 09/12/2022 in follow-up in the intensive care unit. He is currently resting comfortably in bed. Awake and alert in no acute distress. Maintaining O2 saturations in the 90s on room air. Working well with the incentive spirometer. He did undergo a a CT-guided abscess drainage of the liver yesterday with 100 purulent fluid removed. He also had several fransisca removed from his abdominal wound that drained fluid as well. Cultures are pending. A venous. Alissa fluid cultures were positive for E. coli, pseudomonas aeruginosa, enterococcus faecium. White count 12.8. He will been 8.8. Platelets 302. Sodium 135. Potassium 4.8. Bicarb 24. BUN 15. Creatinine 0.79. Glucose 149. He remains on TPN at 180 MLS per hour. Continued on Zosyn and daptomycin. The patient is seen today 09/13/2022 in follow-up in the intensive care unit. He remains awake and alert. Maintaining O2 saturations in the 90s on room air. Slightly febrile at 99.6. He is tachycardic. He has been having issues now with stool and air oozing from his abdominal surgical site. Apparently he had a coughing episode and had some dehiscence in the supraumbilical location. There is also air seen from the abdominal cavity coming to the staple line. Surgical services are following and plans for return to the OR this morning. His body fluid cultures had previously been positive for E. coli, pseudomonas aeruginosa, enterococcus facing him. Wound culture still positive with gram-negative bacilli. He's been continued on daptomycin and Zosyn. White count 17.9. Hemoglobin 9.0. Platelets 458. Sodium 134. Potassium 5.0. Bicarb 21. BUN 16. Creatinine 0.01. Glucose 136. He remains on TPN at 108 ML's per hour. Lipids on Wednesdays and Saturdays. Heparin for DVT prophylaxis. Dilaudid for pain control. The patient is seen today 09/14/2022 in follow-up in the intensive care unit. He did end up going back to surgery yesterday. This is quite extensive and lasting nearly 7 hours. He had undergone an exploratory laparotomy and extensive lysis of adhesions, resection of ilealcolic anastomosis, drainage of perihepatic loculated abscess with removal of CT-guided drain, small bowel resection for small bowel necrosis/perforation, placement of ileostomy, abdominal washout with 7 L of normal saline, debridement of abdominal wall midline incision, patient of the Moiz-Hanley in the right anterior lateral hepatic space, placement of Moiz-Hanlye drain in the right pelvis, quarter-inch Don drain in the subcutaneous tissue midline incision and placement of Provena incisional wound VAC system. He was returned to the intensive care unit on the mechanical ventilator. Current settings are assist-control mode of 28, tidal volume 500, FiO2 40% and a PEEP of 5. Morning blood gases revealed a pO2 of 184, pCO2 of 41, pH 7.31 on 50% FiO2. White count 20.1. Hemoglobin 9.3. Platelets 41. Sodium 131. Potassium initially 6.6 corrected to 5.9, bicarb 20, BUN 32. Creatinine 2.15. Glucose 379. Magnesium 1.4. Chest x-ray reveals bibasilar atelectasis. No evidence of pneumothorax. Endotracheal and gastric tube secured in place. Left-sided PICC line in place. Follow-up abdominal wound culture positive for E. coli. He is currently on daptomycin and Zosyn. He is requiring pressor support currently on norepinephrine at 25 mcg/m. Vasopressin at 0.03 units per minute. Propofol at 50 mcg/kg/m. Nimbex at 1.5 mcg/kg/m. 0.9 normal saline at 50 MLS per hour. TPN at 108 ML's per hour and lipids for n ourishment. CVP of 10. He is status post 8 L of fluid resuscitation. Currently in a +8.6 L balance. Reevaluated today on 09/22/2022, patient remains in the ICU, supposed to have drainage of abdominal abscess by interventional radiology, this may be done later today or tomorrow. In the meantime the patient is on room air, not in any distress, he has a functional ostomy. But yesterday he had venous Doppler of the upper extremities and he was found to have left upper extremity DVT. I'm strongly recommending that the patient get started on heparin, unless general surgery on the case season options contraindication to heparin. The heparin could be placed on hold few hours before his scheduled abdominal abscess drainage by interventional radiology. Patient continues to have leukocytosis with WBC count 19.3 hemoglobin is 8.1. Elect lites are normal renal profile is normal Reevaluated today on , patient remains in the ICU, he is actually on room air, does not seem to be in any distress, he is on heparin drip which I will transition to Lovenox 80 mg subcu twice a day, apparently the patient could not have his abdominal fluid collection drained by interventional radiology as there is no interventional radiologists who could do this procedure, his surgeon is very well aware of this, and she is planning now to hold on the procedure and repeat CT of the abdomen and pelvis in few days. Pulmonary-valdez the patient is relatively asymptomatic, he is denying any shortness of breath no cough no wheezing, patient remains on TPN via a left IJ triple-lumen catheter, however p atient may eventually need a PICC line this could be done in the right arm since he developed DVT in the left upper extremity. WBC count is 15.7 hemoglobin is 7.9 his electrolytes are normal renal profile is normal The patient is seen today 09/24/2022 in follow-up on the regular medical floor. He was transferred out of the ICU yesterday. He is doing quite well. He remains on room air with O2 saturations in the 90s. He continues to work well with the incentive spirometer. He is continued on bronchodilators. Being nourished with lipids and TPN at 100 ML's per hour. Sputum culture was positive for E. coli. Wound culture was positive for E. coli and [place]. Peritoneal fluid was originally positive for enterococcus fascia and pseudomonas aeruginosa with E. coli. Remains on Eraxis, meropenem and daptomycin. He has a new right upper extremity PICC line in place. He is status post 1 unit of packed red blood cells this admission. Current hemoglobin 8.4. Platelets 251. White cou nt 14.5. Sodium 136. Potassium 4.3. Bicarb 24. BUN 15. Creatinine 0.70. Glucose 134. Objective - Vital Signs Vital signs: Vital Signs Temp 99.6 F 09/24/22 07:43 Pulse 100 09/24/22 10:03 Resp 18 09/24/22 07:43 BP 144/85 09/24/22 07:43 Pulse Ox 96 09/24/22 07:43 FiO2 40 09/17/22 10:41 Intake & Output 09/23/22 09/24/22 09/24/22 18:59 06:59 18:59 Intake Total 783.852 8536 Output Total 2380 3000 Balance -1395.076 -611 Weight 98.1 kg 97 kg Intake: IV 180 120 0.9 @ KVO 80 120 Anidulafungin 100 mg In 100 Sodium Chloride 0.9% 100 ml @ 84 mls/hr IVPB DAILY [facility] Rx#:[id number] Intake, IV Titration 787.887 3587 Amount Anidulafungin 100 mg In 100 Sodium Chloride 0.9% 100 ml @ 84 mls/hr IVPB DAILY [facility] Rx#:[id number] Heparin Sod,Pork in 0.45% 54.924 NaCl 25,000 unit In 0.45 % NaCl 1 250ml.bag @ 10. 05 UNITS/KG/HR 10 mls/hr IV .Q24H [facility] Rx#: [id number] Mvi, Adult No.4 with Vit 1069 K 10 ml Trace (Conc-1Ml/ Dose) 1 ml Potassium Phosphate 3 mmol Sodium Acetate 80 meq Potassium Chloride 12 meq Magnesium Sulfate gm 0.5 gm Calcium Gluconate 1 gm In Amino Acids 5 %/Dextrose 20 % 1,000 ml @ 100 mls/ hr IV .[facility] Rx #:[id number] Potassium Phosphate 3 400 mmol Sodium Acetate 80 meq Potassium Chloride 12 meq Magnesium Sulfate gm 0.5 gm Calcium Gluconate 1 gm In Amino Acids 5 %/ Dextrose 20 % 1,000 ml @ 100 mls/hr IV .[facility] Rx#: [id number] Oral 250 TPN/PPN 1200 0.9 @ KVO 1200 Output: Urine 880 1200 Stool 1500 1800 Other: Voiding Method Urinal Urinal ABP, PAP, CO, CI - Last Documented Arterial Blood Pressure 176/96 - Exam GENERAL EXAM: Awake, alert 52-year-old male patient on room air, resting comfortably in bed. HEAD: Normocephalic. EYES: Sluggish reaction of pupils, unequal size. NOSE: Clear with pink turbinates. THROAT: No erythema or exudates. NECK: No masses, no JVD. CHEST: No chest wall deformity. LUNGS: Equal air entry with no rhonchi, wheeze or dullness. CVS: S1 and S2 normal with no audible murmur, regular rhythm. ABDOMEN: Midline incision with Don drain in place. Ileostomy with stool SPINE: No scoliosis or deformity SKIN: No rashes CENTRAL NERVOUS SYSTEM: No focal deficits, tone is normal in all 4 extremities. EXTREMITIES: Right upper extremity PICC line in place There is no peripheral edema. No clubbing, no cyanosis. Peripheral pulses are intact. - Labs CBC & Chem 7: 09/24/22 09:26 09/24/22 06:17 Labs: Abnormal Lab Results - Last 24 Hours (Table) 09/23/22 09/23/22 09/23/22 Range/Units 11:26 16:13 21:14 WBC (3.8-10.6) k/uL RBC (4.30-5.90) m/uL Hgb (13.0-17.5) gm/dL Hct (39.0-53.0) % RDW (11.5-15.5) % Neutrophils # (1.3-7.7) k/uL Sodium (137-145) mmol/L Glucose (74-99) mg/dL POC Glucose (mg/dL) 134 H 129 H 152 H (70-110) mg/dL Calcium (8.4-10.2) mg/dL 09/24/22 09/24/22 09/24/22 Range/Units 06:12 06:17 09:26 WBC 14.5 H (3.8-10.6) k/uL RBC 3.03 L (4.30-5.90) m/uL Hgb 8.4 L (13.0-17.5) gm/dL Hct 25.4 L (39.0-53.0) % RDW 17.0 H (11.5-15.5) % Neutrophils # 12.3 H (1.3-7.7) k/uL Sodium 136 L (137-145) mmol/L Glucose 134 H (74-99) mg/dL POC Glucose (mg/dL) 152 H (70-110) mg/dL Calcium 8.3 L (8.4-10.2) mg/dL Microbiology - Last 24 Hours (Table) 09/04/22 19:50 Gram Stain - Final Peritoneal Fluid Body Fluid Culture - Final Escherichia coli Pseudomonas aeruginosa Enterococcus faecium Assessment and Plan Assessment: Acute pneumoperitoneum, secondary to perforated colonic diverticulum and transverse colon. Status post robotic-assisted laparoscopy with extensive lysis of adhesions, right hemicolectomy and primary anastomosis and drainage of abdominal abscess abdominal peritoneal lavage and placement of SARAI drain as well as incisional wound VAC system on 09/04/2022. Follow-up computed tomography scan 09/10/2022 revealed loculated and non-loculated perihepatic collections some of which demonstrate mildly thickened almeida with internal foci of air. Hepatic abscesses are not excluded. Persistent dilatation of the small bowel small bowel wall thickening and inflammatory change in the interval colonic anastomotic site. Persistent postoperative ileus and/or obstructive change is not excluded. Adjacent drains in place. Leak is difficult to exclude. Small amount of free air persistent but improved. He did undergo a CT-guided catheter drainage of the liver abscess on 09/11/2022. Abdominal wound dehiscence with stool and air leak through the incision on 09/14/2022. He was returned to the operating room that same day and had undergone an exploratory laparotomy and extensive lysis of adhesions, resection of ilealcolic anastomosis, drainage of perihepatic loculated abscess with removal of CT-guided drain, small bowel resection for small bowel necrosis/perforation, placement of ileostomy, abdominal washout with 7 L of normal saline, debridement of abdominal wall midline incision, patient of the Moiz-Hanley in the right anterior lateral hepatic space, placement of Moiz- Hanley drain in the right pelvis, quarter-inch [place] drain in the subcutaneous tissue midline incision and placement of Provena incisional wound VAC system. Severe abdominal sepsis secondary to E. coli, pseudomonas aeruginosa, enterococcus faecium. Remains on Eraxis, daptomycin and meropenem. Septic shock secondary to above, recovered Acute hypoxemic respiratory failure secondary to above, recovered and on room air Febrile illness secondary to above, improved Leukocytosis secondary to above, improved Sinus tachycardia secondary to sepsis Acute kidney injury, recovered Acute lactic acidosis secondary to sepsis, recovered History of colon cancer status post robotic-assisted laparoscopic extended right hemicolectomy on 08/29/2022 Intra-abdominal abscess Abdominal ascites History of sarcoidosis Plan: The patient was seen and evaluated Labs and medications reviewed Currently stable and on room air Antibiotics per ID services Being nourished with TPN/lipids Advance diet per surgical services Encouraged increased use of the incentive spirometer Increase his activity as tolerated We will continue to follow I have personally seen and examined the patient, performed the documentation and the assessment and plan as written. Number of minutes spent on the visit: 10.
[2022-09-24] MEDS: SODIUM CHLORIDE 0.9% 1,000 ML IV SCH (13:47)
--- NOTE | 2022-09-24 15:09 | P.PN ---
Subjective This is a 52 year old male monitored in the intensive care unit postoperative day #4 lysis of adhesions and right hemicolectomy due to bowel perforation. Patient had end to end anastamosis. Has not had bowel movement, had KUB xray today showing multiple dilated small bowel loops possible ileus vs. obstruction. General surgery recommending patient to be NPO at this time. Heart rate remains elevated in the 120s and patient switched to IV lopressor. Remains on IV daptomycin and IV zosyn for positive peritoneal fluid culture with E. Coli, enterococcus and pseudomonas. Blood culture negative so far. Patient remains on D5 water at 100 mls/hr, sodium is slightly improved today down to 146. Continues on TPN, NG tube has been discontinued. Accuchecks switched to Q6h and small dose of levemir HS has been added. SARAI drain in place with serous drainage. Patient febrile today up to 101.9, encouraged to continue with incentive spirometer. Patient has wound vac in place to continuous suction, plan to ambulate around the room and up in the chair today. 09/09/2022 Patient is evaluated today in the ICU resting in bed. Alert x 3. Asking about discharge. Repeat blood culture is pending patient remains on IV antibiotics. White count up to 19.7 today. Patient reports BM yesterday and passing some gas today. Abdomen is more distended. Surgery recommending NG tube today. Patient remains NPO. Midline incisional wound vac in place. Patient remains with fever, using incentive spirometer reaching 1200. Continues on TPN. 09/10/2022 Patient remains in the intensive care unit. Patient continues to be NPO. 3 attempts were made to pass NG tube and were unsuccessful. Patient did have 2 BMs yesterday, abdomen remains significantly distended. Repeat abdominal pelvis CT reveals loculated and nonloculated perihepatic collections some of which demonst rate mildly thickened almeida with internal foci of air. Perihepatic abscesses are not excluded. Persistent dilation of small bowel with small bowel wall thickening and inflammatory change at the enterocolonic anastomotic site. Persistent postoperative ileus and/or obstructive changes not excluded. Adjacent drain is in place. Contrast does not opacify the anastomotic site and therefore leak is difficult to evaluate or exclude. Small amt of free air persists improved from prior study. White count 18.3 today, electrolytes are normalized and blood glucose improved to 115. Patient remains on TPN. Blood culture remains negative. Remains on IV zosyn and IV daptomycin. Temp of 100.4 and remains tachy cardic 121, blood pressure stable at 131/94. 09/11/2022 Patient is evaluated today in the intensive care unit. Remains tachycardic and T-Max of 100.7 overnight. Scheduled to undergo drainage and placement of drainage tube to the perihepatic abscess noted on CT imaging with IR today. White count down to 16.0 today. Continues on IV daptoymcin and IV vancomycin. Per nursing did have a small BM overnight. 09/12/2022 Patient evaluated today in the intensive care unit. Underwent CT guided abscess drainage with 100 mls of purulent drainage and also had midline fransisca removed at the top of incision with some purulent drainage. Patients white count is down to 12.8 today. Kidney function stable, sodium 135 today. Patient has been cleared to start diet, having small BMs. Metoprolol will be changed to oral. Fever is improving. Cultures are pending from the abscess and ID is following closely. 09/13/2022 Patient continues to be monitored closely in the intensive care unit. Patient continues with significant tachycardia not improving with metoprolol and continues with abdominal distention. Cardiology was placed on consultation for the tachycardia and patient has been transitioned back to IV lopressor. Wound cultures from the CT guided are showing gram negative bacilli. This morning per nursing the abdomen was more distended and patient had felt a popping sensation with evidence of leaking of brown colored drainage from the surgical incision and the drainage bag. The surgical incision was opened yesterday at the bedside by surgery. Patient was taken for emergent exploratory laporotomy. White count is 17.9 today, sodium 134, potassium 5.0. Kidney function remains stable. Patient has been continued to be NPO no NG tube present. Labs and vitals reviewed. 09/14/2022 Patient is evaluated today he is currently in the intensive care unit intubated and sedated he is on combination of nimbex and propofol. Patient is currently on the mechanical ventilator with 40% FiO2. Patient is also requiring levophed and vasopression. Patient continues on IV daptomycin and IV zosyn. The wound culture shows E.Coli. Patient underwent extensive exploratory laporotomy yesterday with lysis of adhesions, resection of the ileocolic anastamosis due to anastomotic leak, small bowel resection for small bowel necrosis/peforation with placement of ileostomy. Patient had nataliia-stone drain x 2 placed and alpa drain placed. Abdomen was closed with a wound vac. Temp is T-max 100.4 today. Labs rev eal white count of 20.1, hgb 9.3, sodium 131, potassium at 6.6 and 5.9, BUN 32, creatinine 2.15, blood glucose 394, calcium 6.4, magnesium 1.4. Patient received IV magnesium, IV gluconate, and IV insulin humulin N. 09/15/2022 Patient is seen in a follow-up continues to be in the ICU with multiple medical consultations following. Patient continues on mechanical ventilation with an FiO2 of 40% and PEEP is 5. Patient is maintained on IV antibiotics in the form of dapto and Zosyn with Infectious Disease Following Closely and Culture Showing E. coli with Multiple Sensitivities. Patient Continues to Have Fevers and White Count Elevated Slightly Trending down to 18 Today. Recent Ileostomy Placed with No Function at This Time and Patient Is Maintained on TPN. Patient Continues with Drains along with a Wound VAC of the Abdomen. Hemoglobin Trending down and upon Stopping Currently Would Recommend Monitoring Closely and Transfuse of 7 or Less. Nephrology Following As Well This Patient's Kidney Functions Worsened Although Appear Better Today. Patient Remains Tachycardic on the Monitor and Troponins Have Been Negative. Recommend Continuing with Accu-Cheks per Protocol and Tight Glycemic Control. 09/16/2022 Patient is seen and evaluated in follow-up today and continues to remain on mechanical ventilation maintained on fentanyl and propofol under sedation. FiO2 is 40% with a PEEP of 5. Hemoglobin critically low at 6.3 and receiving a unit of PRBCs. Would recommend a dose of Lasix after unit of blood. Patient's overall swelling showing some improvement on chest x-ray continues to so show some stable pleural effusions. No bowel activity per nursing staff noted as of yet in the ostomy. Kidney functions are trending down. Patient is continuing to have temps and would recommend repeat blood cultures, sputum culture, urine culture. 09/17/2022 Patient is seen in follow-up this morning continues to be in the ICU on mechanical ventilation and undergoing sedation holidays. FiO2 is 40% with a PEEP of 5. Per nursing staff patient is following commands on sedation holiday but not quite ready for weaning per pulmonary silviculturist. Patient's hemoglobin is improved today at 7.6 status post 1 unit of PRBC yesterday. White count remains slightly elevated at 17.4 and patient continues to have fevers. Infectious disease following closely and repeat blood cultures along with sputum culture have all been sent. Initial culture showing some E. coli and patient is maintained on IV antibiotics in the form of daptomycin, Eraxis, and Zosyn as well awaiting finalized cultures. Patient is noted to have some loose liquid stool noted in the ostomy and is maintained on TPN. Patient is currently off pressor support as well. Prognosis Remains guarded. 09/18/2022 Patient is seen and evaluated in follow-up today continues to be in the ICU was recently extubated yesterday successfully currently maintained on 3 L via nasal cannula. Patient is off pressor support and blood pressure is mildly hypertensive and patient continues to be tacky. Patient most recent fever was last night of 100.4. Patient is maintained on IV antibiotics with infectious disease following and preliminary sputum cultures repeated show gram-negative an initial wound culture showing E. coli along with Pseudomonas and enterococcus. Patient had copious amounts of drainage from ostomy per nursing staff with general surgery is admitting and repeat CT abdomen is ordered and pending at th is time. C. diff sample also being sent which is pending at this time. Patient is maintained on TPN and will continue on strict nothing by mouth per surgery recommendations until Dr. Helton advances. WBC is 19.2 and hemoglobin is 8.2, sodium 142 with a potassium of 3.9 and current creatinine is 0.94. Magnesium is 2.1. Chest x-ray today shows bilateral infiltrates and small pleural effusions are stable. 09/19/2022 Patient admitted to the hospital for perforated colonic diverticulum after recent right hemicolectomy for his colon cancer and discharge home. Patient status post laparoscopic right hemicolectomy and primary anastomosis and drainage of abscess. This has been scanning of the abdominal and yesterday showing right lower quadrant seroma on abscesses and dilated small bowel which could be ileus versus obstruction. The patient with evidence of positive cultures including sputum with E. coli on wound culture with E. coli HER FLUID WITH E. COLI AND PSEUDOMONAS. PATIENT On MULTIPLE ANTIBIOTIC INCLUDING Eraxis, daptomycin and Zosyn 09/20/2029 Patient improving slowly and gradually Patient is more awake and relaxed, no new complaints Just tolerating diet and will be advanced as per surgery team No bowel movement but had high output ileostomy in the right lower quadrant still slightly tachycardic and tachypneic TPN and place 09/21/2022 Patient awake alert. He somewhat tolerates diet between 25 and 75%, it looks like preventing him from eating well he is infection and abdominal sepsis going unrelated to his perforated viscus on admission. Also he has high output RLQ related to infection as well. He has low-grade temperature 99.9 today and he is a broad-spectrum antibiotic of daptomycin, Zosyn and Eraxis. He has multiple cultures positive for E. coli, recent wound culture also growing gram-negative bacilli. TPN is in place, Cruz catheter in place 09/22/2022 Patient clinically is improving, his more more relaxed more comfortable and his eating more between 25-27% within he says that his progress and eating more However he lost his appetite when he was informed that he has a clot in his left upper extremity. Patient was started on heparin drip Also surgery team planned to undergo drainage of this abdominal abscess. An event that he remains on broad-spectrum antibiotics the same once as above. Cruz catheter in a Place 09/23/2022 No significant change from yesterday, on the contrary he continued to improve slowly and gradually, every day he is more awake and energetic and eats more. History of have high stool output from his ileostomy. No abdominal pain. Patient encouraged to eat. TPN still in place. Remains on multiple antibiotics with daptomycin, Zosyn and Eraxis. Heparin drip is wished Lovenox 100 mg twice daily subcutaneously. PICC line placed on the right arm. Surgery team on the case and they recommended drainage of fluid from the intra- abdominal cavity, however there is no IR service available currently in this facility, we will defer to surgery team further management. Patient will be transferred out of the ICU to the general medical floor today 09/24/2022 this morning patient was more anxious, more short of breath and more abdominal pain complain of, Xanax as provided for the patient, however her today his abdo men pain looks like is down. Patient underwent also aspiration of his intra- abdominal abscess by interventional radiologist. Patient tolerates diet slowly and gradually improving, still on TPN pulmonary service signed off the case remains on broad-spectrum antibiotics of Zosyn and daptomycin and Eraxis . Objective - Vital Signs Vital signs: Vital Signs Temp 98.1 F 09/24/22 13:34 Pulse 98 09/24/22 13:34 Resp 17 09/24/22 13:34 BP 133/88 09/24/22 13:34 Pulse Ox 98 09/24/22 13:34 FiO2 40 09/17/22 10:41 Intake & Output 09/23/22 09/24/22 09/24/22 18:59 06:59 18:59 Intake Total 953.636 0034 Output Total 2380 3000 Balance -1395.076 -611 Weight 98.1 kg 97 kg Intake: IV 180 120 0.9 @ KVO 80 120 Anidulafungin 100 mg In 100 Sodium Chloride 0.9% 100 ml @ 84 mls/hr IVPB DAILY [facility] Rx#:[id number] Intake, IV Titration 685.799 9962 Amount Anidulafungin 100 mg In 100 Sodium Chloride 0.9% 100 ml @ 84 mls/hr IVPB DAILY [facility] Rx#:[id number] Heparin Sod,Pork in 0.45% 54.924 NaCl 25,000 unit In 0.45 % NaCl 1 250ml.bag @ 10. 05 UNITS/KG/HR 10 mls/hr IV .Q24H [facility] Rx#: [id number] Mvi, Adult No.4 with Vit 1069 K 10 ml Trace (Conc-1Ml/ Dose) 1 ml Potassium Phosphate 3 mmol Sodium Acetate 80 meq Potassium Chloride 12 meq Magnesium Sulfate gm 0.5 gm Calcium Gluconate 1 gm In Amino Acids 5 %/Dextrose 20 % 1,000 ml @ 100 mls/ hr IV .BY DURATION [facility] Rx #:[id number] Potassium Phosphate 3 400 mmol Sodium Acetate 80 meq Potassium Chloride 12 meq Magnesium Sulfate gm 0.5 gm Calcium Gluconate 1 gm In Amino Acids 5 %/ Dextrose 20 % 1,000 ml @ 100 mls/hr IV .BY DURATION [facility] Rx#: [id number] Oral 250 TPN/PPN 1200 0.9 @ KVO 1200 Output: Urine 880 1200 Stool 1500 1800 Other: Voiding Method Urinal Urinal ABP, PAP, CO, CI - Last Documented Arterial Blood Pressure 176/96 - Exam -GENERAL: The patient is drowsy, not in any acute distress. Well developed, well nourished. HEENT: Pupils are round and equally reacting to light. EOMI. No scleral icterus. No conjunctival pallor. Normocephalic, atraumatic. No pharyngeal erythema. No thyromegaly. CARDIOVASCULAR: S1 and S2 present. No murmurs, rubs, or gallops. PULMONARY: Chest is clear to auscultation, no wheezing . no crackles. -ABDOMEN: Soft, nontender, nondistended, normoactive bowel sounds. No palpable organomegaly. Healing surgical wound was dressed in a Place, Cruz catheter in place MUSCULOSKELETAL: No joint swelling or deformity. EXTREMITIES: No cyanosis, clubbing, or pedal edema. NEUROLOGICAL: Gross neurological examination did not reveal any focal deficits. SKIN: No rashes. no petechiae. - Labs CBC & Chem 7: 09/24/22 09:26 09/24/22 06:17 Labs: Abnormal Lab Results - Last 24 Hours (Table) 09/23/22 09/23/22 09/24/22 Range/Units 16:13 21:14 06:12 WBC (3.8-10.6) k/uL RBC (4.30-5.90) m/uL Hgb (13.0-17.5) gm/dL Hct (39.0-53.0) % RDW (11.5-15.5) % Neutrophils # (1.3-7.7) k/uL Sodium (137-145) mmol/L Glucose (74-99) mg/dL POC Glucose (mg/dL) 129 H 152 H 152 H (70-110) mg/dL Calcium (8.4-10.2) mg/dL 09/24/22 09/24/22 09/24/22 Range/Units 06:17 09:26 11:08 WBC 14.5 H (3.8-10.6) k/uL RBC 3.03 L (4.30-5.90) m/uL Hgb 8.4 L (13.0-17.5) gm/dL Hct 25.4 L (39.0-53.0) % RDW 17.0 H (11.5-15.5) % Neutrophils # 12.3 H (1.3-7.7) k/uL Sodium 136 L (137-145) mmol/L Glucose 134 H (74-99) mg/dL POC Glucose (mg/dL) 177 H (70-110) mg/dL Calcium 8.3 L (8.4-10.2) mg/dL Microbiology - Last 24 Hours (Table) 09/20/22 10:05 Anaerobic Culture - Final Abdominal Fluid 09/04/22 19:50 Gram Stain - Final Peritoneal Fluid Body Fluid Culture - Final Escherichia coli Pseudomonas aeruginosa Enterococcus faecium Assessment and Plan Assessment: Perforated colonic diverticulum of the transverse: With recent history of la paroscopic hemicolectomy and primary anastomosis for colon cancer Neurologic small bowel could be ileus versus obstruction Left upper extremity DVT thrombosis Right lower quadrant seroma versus abscess Abdominal sepsis secondary to above Anemia Leukocytosis Plan: Start heparin drip Plan to drain intra-abdominal abscess by interventional radiologist Continue with antibiotic axis, daptomycin and Zosyn Encourage diet Continue TPN Multiple consultants including critical care pulmonary, infectious disease and surgery team Continue with Levemir insulin Labs and medication were reviewed.. Continue same treatment. Continue with symptomatic treatment. Resume home medication. Monitor labs and vitals. DVT and GI prophylaxis. Further recommendations as per clinical course of the patient DVT prophylaxis: heparin GI Prophylaxis: Ppi Prognosis is guarded
--- NOTE | 2022-09-24 16:10 | P.PN ---
Subjective Progress Note Date: 09/24/22 CHIEF COMPLAINT: Pneumoperitoneum, abdominal pain HISTORY OF PRESENT ILLNESS: The patient is a 52-year-old male status post right hemicolectomy for colon cancer 08/29/2022. He was discharged from the hospital without sequelae 08/31/2022 and returned to the hospital 09/03/2022 for pneumoperitoneum. He is status post exploratory laparotomy, lysis of adhesions, evacuation of intra-abdominal abscess, right hemicolectomy for resection of perforated transverse colon diverticulum, 09/04/2022. He then developed acute abdominal pain with suspected bowel perforation. He was taken back to the operating room 09/13/2022 with ileostomy, drainage of perihepatic abscess and extensive lysis of adhesions with small bowel resection. Patient is out of the ICU on a regular medical floor. His pain is controlled. He continues to have stool through his ileostomy. He continues to have drainage from his incision. His complaint is that he gets full easily. He has on TPN. He reports his pain is tolerable. Afebrile. WBC is slowly trending down from 15.7-14.5 hemoglobin stable at 8.4 sodium 136 potassium 4.3 creatinine 0.70 magnesium 1.9 PHYSICAL EXAM: VITAL SIGNS: Reviewed GENERAL: Well-developed in no acute distress. HEENT: No sclera icterus. Extraocular movements grossly intact. Moist buccal mucosa. Head is atraumatic, normocephalic. No nasal drainage. NECK: Supple without lymphadenopathy. CHEST: Non-labored respirations and equal bilateral excursions. CARDIOVASCULAR: Palpable 2+ radial pulses. ABDOMEN: distended. Ileostomy with stool output. Lilly Stoma. Purulent incisional drainage from alpa at the distal aspect of incision decreased. SARAI drains out dressing clean dry and intact MUSCULOSKELETAL: No clubbing or cyanosis. NEUROLOGIC: No focal or lateralizing signs. Cranial nerves II through XII grossly intact. PSYCH: Appropriate affect. Alert and oriented to person, place and time. SKIN: Well perfused. Good skin turgor. ASSESSMENT: 1. Pneumoperitoneum due to perforated diverticulum 2. Tachycardia with fevers consistent with sepsis 3. Acute kidney injury, failure due to severe sepsis 4. Colon cancer status post resection 5. Liver abscess, para hepatic 6. Incisional wound abscess 7. Perforated anastomosis, acute 8. Fluid along the incision may reflect postsurgical seroma 9. Right lower quadrant fluid collection 10. DVT left arm PLAN: -Start to wean patient off of TPN -Continue antibiotics -Continue to monitor -Continue low fiber diet -Continue local wound care with daily chlorhexidine cleaning of incision. Change dressing as needed -Lovenox for DVT of left arm -Continue supportive care -Continue pain management -Encouraged patient to increase activity level -Encouraged patient to use incentive spirometer -DVT prophylaxis subcu heparin Physician Decorating Machine Tender note has been reviewed by physician. Signing provider agrees with the documented findings, assessment, and plan of care. Objective - Vital Signs Vital signs: Vital Signs Temp 99.6 F 09/24/22 07:43 Pulse 100 09/24/22 10:03 Resp 18 09/24/22 07:43 BP 144/85 09/24/22 07:43 Pulse Ox 96 09/24/22 07:43 FiO2 40 09/17/22 10:41 Intake & Output 09/23/22 09/24/22 09/24/22 18:59 06:59 18:59 Intake Total 723.298 3658 Output Total 2380 3000 Balance -1395.076 -611 Weight 98.1 kg 97 kg Intake: IV 180 120 0.9 @ KVO 80 120 Anidulafungin 100 mg In 100 Sodium Chloride 0.9% 100 ml @ 84 mls/hr IVPB DAILY [facility] Rx#:[id number] Intake, IV Titration 049.677 3639 Amount Anidulafungin 100 mg In 100 Sodium Chloride 0.9% 100 ml @ 84 mls/hr IVPB DAILY [facility] Rx#:[id number] Heparin Sod,Pork in 0.45% 54.924 NaCl 25,000 unit In 0.45 % NaCl 1 250ml.bag @ 10. 05 UNITS/KG/HR 10 mls/hr IV .Q24H [facility] Rx#: [id number] Mvi, Adult No.4 with Vit 1069 K 10 ml Trace (Conc-1Ml/ Dose) 1 ml Potassium Phosphate 3 mmol Sodium Acetate 80 meq Potassium Chloride 12 meq Magnesium Sulfate gm 0.5 gm Calcium Gluconate 1 gm In Amino Acids 5 %/Dextrose 20 % 1,000 ml @ 100 mls/ hr IV .BY DURATION [facility] Rx #:[id number] Potassium Phosphate 3 400 mmol Sodium Acetate 80 meq Potassium Chloride 12 meq Magnesium Sulfate gm 0.5 gm Calcium Gluconate 1 gm In Amino Acids 5 %/ Dextrose 20 % 1,000 ml @ 100 mls/hr IV .BY DURATION [facility] Rx#: [id number] Oral 250 TPN/PPN 1200 0.9 @ KVO 1200 Output: Urine 880 1200 Stool 1500 1800 Other: Voiding Method Urinal Urinal ABP, PAP, CO, CI - Last Documented Arterial Blood Pressure 176/96 - Labs CBC & Chem 7: 09/24/22 09:26 09/24/22 06:17 Labs: Abnormal Lab Results - Last 24 Hours (Table) 09/23/22 09/23/22 09/24/22 Range/Units 16:13 21:14 06:12 WBC (3.8-10.6) k/uL RBC (4.30-5.90) m/uL Hgb (13.0-17.5) gm/dL Hct (39.0-53.0) % RDW (11.5-15.5) % Neutrophils # (1.3-7.7) k/uL Sodium (137-145) mmol/L Glucose (74-99) mg/dL POC Glucose (mg/dL) 129 H 152 H 152 H (70-110) mg/dL Calcium (8.4-10.2) mg/dL 09/24/22 09/24/22 09/24/22 Range/Units 06:17 09:26 11:08 WBC 14.5 H (3.8-10.6) k/uL RBC 3.03 L (4.30-5.90) m/uL Hgb 8.4 L (13.0-17.5) gm/dL Hct 25.4 L (39.0-53.0) % RDW 17.0 H (11.5-15.5) % Neutrophils # 12.3 H (1.3-7.7) k/uL Sodium 136 L (137-145) mmol/L Glucose 134 H (74-99) mg/dL POC Glucose (mg/dL) 177 H (70-110) mg/dL Calcium 8.3 L (8.4-10.2) mg/dL Microbiology - Last 24 Hours (Table) 09/20/22 10:05 Anaerobic Culture - Final Abdominal Fluid 09/04/22 19:50 Gram Stain - Final Peritoneal Fluid Body Fluid Culture - Final Escherichia coli Pseudomonas aeruginosa Enterococcus faecium
[2022-09-24 16:58] LABS: Glucose,Whole Blood 139 mg/dL (70-110)
[2022-09-24] MEDS: FAT EMULSION 20% 250 ML in EMPTY BAG 1 BAG IV SCH (18:09)
[2022-09-24 21:17] LABS: Glucose,Whole Blood 123 mg/dL (70-110)
[2022-09-25] MEDS: HYDROmorphone 1 MG/ML 1 ML SYRINGE IVP PRN ×3 (02:44→20:54)
[2022-09-25] MEDS: MEROPENEM 1 GM in SODIUM CHLORIDE 0.9% 100 ML IVPB SCH ×3 (04:27→20:52)
[2022-09-25 05:35] LABS: Glucose,Whole Blood 100 mg/dL (70-110)
[2022-09-25] MEDS: INSULIN ASPART (NovoLOG) 100 UNIT/ML VIAL SQ SCH ×8 (05:49→21:06)
[2022-09-25] MEDS: INSULIN DETEMIR (LEVEMIR) 100 UNIT/ML SYR SQ SCH ×2 (06:39→21:06)
[2022-09-25 06:51] LABS: African American GFR (CKD) >90 (>60 ml/min/1.73 sqM); Anion Gap 8 mmol/L; Blood Urea Nitrogen 14 mg/dL (9-20); Calcium 8.6 mg/dL (8.4-10.2); Carbon Dioxide 27 mmol/L (22-30); Chloride 100 mmol/L (98-107); Glucose 96 mg/dL (74-99); Magnesium 1.9 mg/dL (1.6-2.3); Non-African American GFR(CKD) >90 (>60 ml/min/1.73 sqM); Potassium 4.5 mmol/L (3.5-5.1); Sodium 135 mmol/L (137-145)
[2022-09-25 08:38] LABS: Anisocytosis Slight; Basophils % (A) 0 %; Eosinophils # (A) 0.4 k/uL (0-0.7); Eosinophils % (A) 3 %; HCT 25.8 % (39.0-53.0); HGB 8.3 gm/dL (13.0-17.5); Hypochromasia Slight; Lymphocytes % (A) 8 %; MCH 26.9 pg (25.0-35.0); MCHC 32.3 g/dL (31.0-37.0); MCV 83.2 fL (80.0-100.0); Mean Platelet Volume 9.5; Monocytes # (A) 0.6 k/uL (0-1.0); Monocytes % (A) 5 %; Neutrophils # (A) 9.8 k/uL (1.3-7.7); Neutrophils % (A) 82 %; Platelet Count 261 k/uL (150-450); RDW 17.3 % (11.5-15.5); WBC 11.9 k/uL (3.8-10.6)
[2022-09-25] MEDS: ANIDULAFUNGIN 100 MG in SODIUM CHLORIDE 0.9% 100 ML IVPB SCH (09:21)
[2022-09-25] MEDS: METOPROLOL TARTRATE 50 MG TAB PO SCH ×2 (09:22→20:55)
[2022-09-25] MEDS: ENOXAPARIN 100 MG/ML SYRINGE SQ SCH ×2 (09:22→20:53)
[2022-09-25] MEDS: PANTOPRAZOLE 40 MG/10 ML VIAL IV SCH (09:22)
[2022-09-25] MEDS: SODIUM CHLORIDE 0.9% 1,000 ML IV SCH (09:22)
[2022-09-25] MEDS: ONDANSETRON 4 MG/2 ML VIAL IVP PRN ×2 (09:31→17:08)
[2022-09-25] MEDS: IPRATROPIUM-ALBUTEROL 3 ML NEB INHALATION SCH ×4 (09:40→20:57)
--- NOTE | 2022-09-25 11:35 | P.PN ---
Subjective Progress Note Date: 09/25/22 CHIEF COMPLAINT: Pneumoperitoneum, abdominal pain HISTORY OF PRESENT ILLNESS: The patient is a 52-year-old male status post right hemicolectomy for colon cancer 08/29/2022. He was discharged from the hospital without sequelae 08/31/2022 and returned to the hospital 09/03/2022 for pneumoperitoneum. He is status post exploratory laparotomy, lysis of adhesions, evacuation of intra-abdominal abscess, right hemicolectomy for resection of perforated transverse colon diverticulum, 09/04/2022. He then developed acute abdominal pain with suspected bowel perforation. He was taken back to the operating room 09/13/2022 with ileostomy, drainage of perihepatic abscess and extensive lysis of adhesions with small bowel resection. Patient is on a regular medical floor. TPN discontinued yesterday. Abdominal pain is controlled. He was seen by the ostomy nurse for ostomy teaching. He continues to have stool through his ileostomy. He continues to have drainage from his incision. He did get up into the bedside chair yesterday. Heart rate 100. WBC is down from 14.5-11.9 Hgb 8.3 platelets 261 sodium is 135 potassium 4.5 creatinine 0.73 magnesium 1.9 PHYSICAL EXAM: VITAL SIGNS: Reviewed GENERAL: Well-developed in no acute distress. HEENT: No sclera icterus. Extraocular movements grossly intact. Moist buccal mucosa. Head is atraumatic, normocephalic. No nasal drainage. NECK: Supple without lymphadenopathy. CHEST: Non-labored respirations and equal bilateral excursions. CARDIOVASCULAR: Palpable 2+ radial pulses. ABDOMEN: distended. Ileostomy with stool output. Pajaro Stoma. Purulent incisional drainage from alpa at the distal aspect of incision decreased. SARAI drains out dressing clean dry and intact MUSCULOSKELETAL: No clubbing or cyanosis. NEUROLOGIC: No focal or lateralizing signs. Cranial nerves II through XII grossly intact. PSYCH: Appropriate affect. Alert and oriented to person, place and time. SKIN: Well perfused. Good skin turgor. ASSESSMENT: 1. Pneumoperitoneum due to perforated diverticulum 2. Tachycardia with fevers consistent with sepsis 3. Acute kidney injury, failure due to severe sepsis 4. Colon cancer status post resection 5. Liver abscess, para hepatic 6. Incisional wound abscess 7. Perforated anastomosis, acute 8. Fluid along the incision may reflect postsurgical seroma 9. Right lower quadrant fluid collection 10. DVT left arm PLAN: -TPN weaned off -Consult pain service for pain management and transitioning to oral medications for home -Continue ostomy teaching -Continue antibiotics -Continue to monitor -Continue low fiber diet -Continue local wound care with daily chlorhexidine cleaning of incision. Change dressing as needed -Lovenox for DVT of left arm -Continue supportive care -Continue pain management -Encouraged patient to increase activity level -Encouraged patient to use incentive spirometer Physician Direct Mail Coordinator note has been reviewed by physician. Signing provider agrees with the documented findings, assessment, and plan of care. Objective - Vital Signs Vital signs: Vital Signs Temp 98.8 F 09/25/22 07:18 Pulse 100 09/25/22 09:52 Resp 18 09/25/22 09:52 BP 108/78 09/25/22 07:18 Pulse Ox 98 09/25/22 09:42 FiO2 40 09/17/22 10:41 Intake & Output 09/24/22 09/25/22 09/25/22 18:59 06:59 18:59 Intake Total 3556.333 330 Output Total 500 2100 Balance 3056.333 -1770 Weight 92.5 kg Intake: IV 240 120 0.9 @ KVO 240 120 Intake, IV Titration 2016.333 210 Amount Fat Emulsion 20% 250 ml 210 In Empty Bag 1 bag @ 21 mls/hr IV WeSa@1800 [facility] Rx#:[id number] Mvi, Adult No.4 with Vit 958.333 K 10 ml Trace (Conc-1Ml/ Dose) 1 ml Potassium Phosphate 3 mmol Sodium Acetate 80 meq Potassium Chloride 12 meq Magnesium Sulfate gm 0.5 gm Calcium Gluconate 1 gm In Amino Acids 5 %/Dextrose 20 % 1,000 ml @ 100 mls/ hr IV .BY DURATION [facility] Rx #:[id number] Potassium Phosphate 3 1058 mmol Sodium Acetate 80 meq Potassium Chloride 12 meq Magnesium Sulfate gm 0.5 gm Calcium Gluconate 1 gm In Amino Acids 5 %/ Dextrose 20 % 1,000 ml @ 100 mls/hr IV .BY DURATION [facility] Rx#: [id number] TPN/PPN 1200 0.9 @ KVO 1200 Lipid 100 0.9 @ KVO 100 Output: Urine 500 1600 Stool 500 ABP, PAP, CO, CI - Last Documented Arterial Blood Pressure 176/96 - Labs CBC & Chem 7: 09/25/22 06:11 09/25/22 06:11 Labs: Abnormal Lab Results - Last 24 Hours (Table) 09/24/22 09/24/22 09/25/22 Range/Units 16:56 21:15 06:11 WBC (3.8-10.6) k/uL RBC (4.30-5.90) m/uL Hgb (13.0-17.5) gm/dL Hct (39.0-53.0) % RDW (11.5-15.5) % Neutrophils # (1.3-7.7) k/uL Sodium 135 L (137-145) mmol/L POC Glucose (mg/dL) 139 H 123 H (70-110) mg/dL 09/25/22 Range/Units 06:11 WBC 11.9 H (3.8-10.6) k/uL RBC 3.10 L (4.30-5.90) m/uL Hgb 8.3 L (13.0-17.5) gm/dL Hct 25.8 L (39.0-53.0) % RDW 17.3 H (11.5-15.5) % Neutrophils # 9.8 H (1.3-7.7) k/uL Sodium (137-145) mmol/L POC Glucose (mg/dL) (70-110) mg/dL Microbiology - Last 24 Hours (Table) 09/20/22 10:05 Anaerobic Culture - Final Abdominal Fluid
--- NOTE | 2022-09-25 11:37 | P.PN ---
Subjective Progress Note Date: 09/25/22 This is a 52-year-old -[place] male with history of colon cancer, status post right hemicolectomy for cecal colon cancer on 08/29/2022. Patient was discharged uneventfully on Percocet and Motrin for pain control. Patient was readmitted on 09/03/2022, he was mostly admitted with abdominal pain, distention, nausea and vomiting which started a few days prior to his admission. Patient was seen by surgery on consultation, and he was found to have acute pneumoperitoneum. Yesterday, the patient underwent robotic-assisted laparoscopic extensive lysis of adhesions open exploratory laparotomy with right hemicolectomy and primary anastomosis drainage of abdominal abscess abdominal peritoneal lavage, Margarita spent of a SARAI drain in the pelvis and placement of the incisional wound VAC system. I was notified about this patient from Dr. Moeller yesterday, and considering his abdominal sepsis presentation considering his surgical findings considering the patient was not extubated postoperatively, we admitted the patient to the ICU, manage his ventilator overnight, and I'm evaluating the patient today on consultation. Patient had a relatively uneventful night, did not require any pressors, he did receive fluids and he seems to be hemodynamically stable, remains on mechanical ventilation. His ventilator settings at this point are assist control rate of 18 tidal volume 500 FiO2 40% and PEEP of 5 recent ABG showed a pO2 of 79 pCO2 39 pH of 7.42 patient is on vancomycin and Zosyn for his abdominal sepsis he is on propofol at 65 mcg/kg/m he has good urine output roughly 30-50 mL per hour. Patient has a nasogastric tube applied to suction and he has a wound VAC. He also has a SARAI drain noted. Patient is sedated and calm, however I would recommend a trial of sedation interruption and possibly weaning parameters, if tolerated may consider further weaning and extubation today. Labs today showed relatively normal CBC WBC count is 8.6 hemoglobin is 10.4. Elect lites are normal BUN is 23 creatinine 1.36. Reevaluated today on 09/06/2022, patient remains in the ICU, patient was extub ated yesterday and he tolerated extubation well over the last 24 hours. He is on 2 L nasal cannula, not in any distress. Continues to have significant nasogastric output. Patient is to be started on TPN today. Doing better than expected overall. Remains on antibiotics for his abdominal sepsis. White count is 11.8 today hemoglobin is 9.6. Elect lites are normal renal profile is normal with a creatinine of 1.14, improving since admission from 2.14 on admission. Patient is compliant with his incentive spirometry and doing a good job with I- S. Reevaluated today on 09/07/2022, patient remains in the ICU, he feels generally weak, denies any shortness of breath, no cough, no wheezing. Continues to have nasogastric tube in place, and he had 1 50 mL of output overnight. Patient on TPN for nutritional support. His sodium was noted to be elevated today, and I recommended switching his IV fluid to D5W at 100 mL per hour. His labs otherwise are unremarkable. Patient is doing well with incentive spirometry, pain is fairly well controlled. Renal profile is normal, WBC count is 11.8 h emoglobin is 9.6 The patient is seen today 09/08/2022 in follow-up in the intensive care unit. He is currently resting comfortably in bed. Awake and alert in no acute distress. He is maintaining good O2 saturations in the mid 90s on room air. He is febrile with a temp of 101.9. Tachycardic. Hypertensive. Blood cultures pending. Abdominal x-ray revealed persistent markedly dilated small bowel loops. Peritoneal fluid cultures were positive for E. coli, Pseudomonas aeruginosa, enterococcus faecium. He remains nothing by mouth. He is continued on TPN and lipids. Antibiotics in the form of Zosyn and now daptomycin. Remains on heparin for DVT prophylaxis. He is up ambulating with assistance. The patient is seen today 09/09/2022 in follow-up in the intensive care unit. He is currently resting comfortably in bed. Awake and alert in no acute distress. White count 19.7. Hemoglobin 9.4. Platelets 245. Sodium 141. Potassium 3.9. Bicarb 24. BUN 14. Creatinine 0.78. Glucose 139. He is maintaining good O2 saturations in the mid 90s on room air. Continues with a low-grade fever currently at 100.8. Tachycardic. He is continued on TPN 108 ML's per hour. He has D5W it 100 ML's per hour. 0.9 normal setting at KVO. He is on antibiotics in the form of Zosyn and daptomycin. He is working well with the incentive spirometer. Remains on strict nothing by mouth per surgical services. The patient is seen today 09/10/2022 in follow-up in the intensive care unit. He is currently resting fairly comfortably in bed. Awake and alert in no acute distress. Chest x-ray shows improving bilateral infiltrate and small effusion. He continues to maintain good O2 saturations in the 90s on room air. Some abdominal distention and discomfort. Follow-up computed tomography scan pending. Still have an elevated temperatures up to 102.4 last night. White count 18.3. Hemoglobin 8.8. Sodium 139. Potassium 4.0. Bicarb 24. BUN 14. Creatinine 0.83. He remains on daptomycin and Zosyn. Being nourished with TPN at 108 ML's per hour. Heparin for DVT prophylaxis. The patient is seen today 09/11/2022 in follow-up in the intensive care unit. He is currently resting in bed. Awake and alert in no acute distress. Maintaining good O2 saturations in the 90s on room air. His initial peritoneal fluid cultures were positive for E. coli, pseudomonas aeruginosa, enterococcus faecium. Follow-up blood cultures are pending. He did have issues with abdominal distention. Follow-up computed tomography scan revealed loculated and non-loculated. Hepatic collections some of which demonstrate mildly thickened almeida with internal foci of air.. Hepatic abscesses are not excluded. Persistent dilatation of the small bowel small bowel wall thickening and inflammatory change in the interval colonic anastomotic site. Persistent postoperative ileus and/or obstructive change is not excluded. Adjacent drains in place. Leak is difficult to exclude. Small amount of free air persistent but improved. Chest x-ray reveals stable bilateral lower lobe infiltrate and small effusion. Left-sided PICC line remains in place. White count 16.0. Hemoglobin 9.1. Platelets 270. Sodium 136. Potassium 4.3. Bicarb 24. BUN 15. Creatinine 0.90. Glucose 124. He is continued on daptomycin and Zosyn. Continues to work with the incentive spirometer. Heparin for DVT prophylaxis. Being nourished with TPN at 108 ML's per hour. The patient is seen today 09/12/2022 in follow-up in the intensive care unit. He is currently resting comfortably in bed. Awake and alert in no acute distress. Maintaining O2 saturations in the 90s on room air. Working well with the incentive spirometer. He did undergo a a CT-guided abscess drainage of the liver yesterday with 100 purulent fluid removed. He also had several fransisca removed from his abdominal wound that drained fluid as well. Cultures are pending. A venous. Alissa fluid cultures were positive for E. coli, pseudomonas aeruginosa, enterococcus faecium. White count 12.8. He will been 8.8. Platelets 302. Sodium 135. Potassium 4.8. Bicarb 24. BUN 15. Creatinine 0.79. Glucose 149. He remains on TPN at 180 MLS per hour. Continued on Zosyn and daptomycin. The patient is seen today 09/13/2022 in follow-up in the intensive care unit. He remains awake and alert. Maintaining O2 saturations in the 90s on room air. Slightly febrile at 99.6. He is tachycardic. He has been having issues now with stool and air oozing from his abdominal surgical site. Apparently he had a coughing episode and had some dehiscence in the supraumbilical location. There is also air seen from the abdominal cavity coming to the staple line. Surgical services are following and plans for return to the OR this morning. His body fluid cultures had previously been positive for E. coli, pseudomonas aeruginosa, enterococcus facing him. Wound culture still positive with gram-negative bacilli. He's been continued on daptomycin and Zosyn. White count 17.9. Hemoglobin 9.0. Platelets 458. Sodium 134. Potassium 5.0. Bicarb 21. BUN 16. Creatinine 0.01. Glucose 136. He remains on TPN at 108 ML's per hour. Lipids on Wednesdays and Saturdays. Heparin for DVT prophylaxis. Dilaudid for pain control. The patient is seen today 09/14/2022 in follow-up in the intensive care unit. He did end up going back to surgery yesterday. This is quite extensive and lasting nearly 7 hours. He had undergone an exploratory laparotomy and extensive lysis of adhesions, resection of ilealcolic anastomosis, drainage of perihepatic loculated abscess with removal of CT-guided drain, small bowel resection for small bowel necrosis/perforation, placement of ileostomy, abdominal washout with 7 L of normal saline, debridement of abdominal wall midline incision, patient of the Moiz-Hanley in the right anterior lateral hepatic space, placement of Moiz-Hanley drain in the right pelvis, quarter-inch Don drain in the subcutaneous tissue midline incision and placement of Provena incisional wound VAC system. He was returned to the intensive care unit on the mechanical ventilator. Current settings are assist-control mode of 28, tidal volume 500, FiO2 40% and a PEEP of 5. Morning blood gases revealed a pO2 of 184, pCO2 of 41, pH 7.31 on 50% FiO2. White count 20.1. Hemoglobin 9.3. Platelets 41. Sodium 131. Potassium initially 6.6 corrected to 5.9, bicarb 20, BUN 32. Creatinine 2.15. Glucose 379. Magnesium 1.4. Chest x-ray reveals bibasilar atelectasis. No evidence of pneumothorax. Endotracheal and gastric tube secured in place. Left-sided PICC line in place. Follow-up abdominal wound culture positive for E. coli. He is currently on daptomycin and Zosyn. He is requiring pressor support currently on norepinephrine at 25 mcg/m. Vasopressin at 0.03 units per minute. Propofol at 50 mcg/kg/m. Nimbex at 1.5 mcg/kg/m. 0.9 normal saline at 50 MLS per hour. TPN at 108 ML's per hour and lipids for n ourishment. CVP of 10. He is status post 8 L of fluid resuscitation. Currently in a +8.6 L balance. Reevaluated today on 09/22/2022, patient remains in the ICU, supposed to have drainage of abdominal abscess by interventional radiology, this may be done later today or tomorrow. In the meantime the patient is on room air, not in any distress, he has a functional ostomy. But yesterday he had venous Doppler of the upper extremities and he was found to have left upper extremity DVT. I'm strongly recommending that the patient get started on heparin, unless general surgery on the case season options contraindication to heparin. The heparin could be placed on hold few hours before his scheduled abdominal abscess drainage by interventional radiology. Patient continues to have leukocytosis with WBC count 19.3 hemoglobin is 8.1. Elect lites are normal renal profile is normal Reevaluated today on , patient remains in the ICU, he is actually on room air, does not seem to be in any distress, he is on heparin drip which I will transition to Lovenox 80 mg subcu twice a day, apparently the patient could not have his abdominal fluid collection drained by interventional radiology as there is no interventional radiologists who could do this procedure, his surgeon is very well aware of this, and she is planning now to hold on the procedure and repeat CT of the abdomen and pelvis in few days. Pulmonary-valdez the patient is relatively asymptomatic, he is denying any shortness of breath no cough no wheezing, patient remains on TPN via a left IJ triple-lumen catheter, however p atient may eventually need a PICC line this could be done in the right arm since he developed DVT in the left upper extremity. WBC count is 15.7 hemoglobin is 7.9 his electrolytes are normal renal profile is normal The patient is seen today 09/24/2022 in follow-up on the regular medical floor. He was transferred out of the ICU yesterday. He is doing quite well. He remains on room air with O2 saturations in the 90s. He continues to work well with the incentive spirometer. He is continued on bronchodilators. Being nourished with lipids and TPN at 100 ML's per hour. Sputum culture was positive for E. coli. Wound culture was positive for E. coli and Ysabel. Peritoneal fluid was originally positive for enterococcus fascia and pseudomonas aeruginosa with E. coli. Remains on Eraxis, meropenem and daptomycin. He has a new right upper extremity PICC line in place. He is status post 1 unit of packed red blood cells this admission. Current hemoglobin 8.4. Platelets 251. White cou nt 14.5. Sodium 136. Potassium 4.3. Bicarb 24. BUN 15. Creatinine 0.70. Glucose 134. The patient is seen today 09/25/2022 in follow-up on the regular medical floor. He is awake and alert in no acute distress. Resting in bed. Maintaining good O2 saturations in the 90s on room air. White count 11.9. Hemoglobin 8.3. Platelets 261. Sodium 135. Potassium 4.5. Bicarb 27. BUN 14. Creatinine 0.73. He is continued on bronchodilators. Lovenox. Remains on Eraxis, meropenem. Completed daptomycin. PICC line in place. Abdominal wound cultures were positive for E. coli and Ysabel. Sputum culture was positive for E. coli. Ostomy is functioning. Tolerating a low fiber diet. Objective - Vital Signs Vital signs: Vital Signs Temp 98.8 F 09/25/22 07:18 Pulse 100 09/25/22 09:52 Resp 18 09/25/22 09:52 BP 108/78 09/25/22 07:18 Pulse Ox 98 09/25/22 09:42 FiO2 40 09/17/22 10:41 Intake & Output 09/24/22 09/25/22 09/25/22 18:59 06:59 18:59 Intake Total 3556.333 330 Output Total 500 2100 Balance 3056.333 -1770 Weight 92.5 kg Intake: IV 240 120 0.9 @ KVO 240 120 Intake, IV Titration 2016.333 210 Amount Fat Emulsion 20% 250 ml 210 In Empty Bag 1 bag @ 21 mls/hr IV WeSa@1800 [facility] Rx#:[id number] Mvi, Adult No.4 with Vit 958.333 K 10 ml Trace (Conc-1Ml/ Dose) 1 ml Potassium Phosphate 3 mmol Sodium Acetate 80 meq Potassium Chloride 12 meq Magnesium Sulfate gm 0.5 gm Calcium Gluconate 1 gm In Amino Acids 5 %/Dextrose 20 % 1,000 ml @ 100 mls/ hr IV .BY DURATION [facility] Rx #:[id number] Potassium Phosphate 3 1058 mmol Sodium Acetate 80 meq Potassium Chloride 12 meq Magnesium Sulfate gm 0.5 gm Calcium Gluconate 1 gm In Amino Acids 5 %/ Dextrose 20 % 1,000 ml @ 100 mls/hr IV .BY DURATION [facility] Rx#: [id number] TPN/PPN 1200 0.9 @ KVO 1200 Lipid 100 0.9 @ KVO 100 Output: Urine 500 1600 Stool 500 ABP, PAP, CO, CI - Last Documented Arterial Blood Pressure 176/96 - Exam GENERAL EXAM: Awake, alert, pleasant 52-year-old male, on room air, resting comfortably in bed. HEAD: Normocephalic. EYES: Sluggish reaction of pupils, unequal size. NOSE: Clear with pink turbinates. THROAT: No erythema or exudates. NECK: No masses, no JVD. CHEST: No chest wall deformity. LUNGS: Equal air entry with no rhonchi, wheeze or dullness. CVS: S1 and S2 normal with no audible murmur, regular rhythm. ABDOMEN: Midline incision with [place] drain in place. Ileostomy with stool SPINE: No scoliosis or deformity SKIN: No rashes CENTRAL NERVOUS SYSTEM: No focal deficits, tone is normal in all 4 extremities. EXTREMITIES: Right upper extremity PICC line in place There is no peripheral edema. No clubbing, no cyanosis. Peripheral pulses are intact. - Labs CBC & Chem 7: 09/25/22 06:11 09/25/22 06:11 Labs: Abnormal Lab Results - Last 24 Hours (Table) 09/24/22 09/24/22 09/25/22 Range/Units 16:56 21:15 06:11 WBC (3.8-10.6) k/uL RBC (4.30-5.90) m/uL Hgb (13.0-17.5) gm/dL Hct (39.0-53.0) % RDW (11.5-15.5) % Neutrophils # (1.3-7.7) k/uL Sodium 135 L (137-145) mmol/L POC Glucose (mg/dL) 139 H 123 H (70-110) mg/dL 09/25/22 Range/Units 06:11 WBC 11.9 H (3.8-10.6) k/uL RBC 3.10 L (4.30-5.90) m/uL Hgb 8.3 L (13.0-17.5) gm/dL Hct 25.8 L (39.0-53.0) % RDW 17.3 H (11.5-15.5) % Neutrophils # 9.8 H (1.3-7.7) k/uL Sodium (137-145) mmol/L POC Glucose (mg/dL) (70-110) mg/dL Microbiology - Last 24 Hours (Table) 09/20/22 10:05 Anaerobic Culture - Final Abdominal Fluid Assessment and Plan Assessment: Acute pneumoperitoneum, secondary to perforated colonic diverticulum and transverse colon. Status post robotic-assisted laparoscopy with extensive lysis of adhesions, right hemicolectomy and primary anastomosis and drainage of abdominal abscess abdominal peritoneal lavage and placement of SARAI drain as well as incisional wound VAC system on 09/04/2022. Follow-up computed tomography scan 09/10/2022 revealed loculated and non-loculated perihepatic collections some of which demonstrate mildly thickened almeida with internal foci of air. He patic abscesses are not excluded. Persistent dilatation of the small bowel small bowel wall thickening and inflammatory change in the interval colonic anastomotic site. Persistent postoperative ileus and/or obstructive change is not excluded. Adjacent drains in place. Leak is difficult to exclude. Small amount of free air persistent but improved. He did undergo a CT-guided catheter drainage of the liver abscess on 09/11/2022. Abdominal wound dehiscence with stool and air leak through the incision on 09/14/2022. He was returned to the operating room that same day and had undergone an exploratory laparotomy and extensive lysis of adhesions, resection of ilealcolic anastomosis, drainage of perihepatic loculated abscess with removal of CT-guided drain, small bowel resection for small bowel necrosis/perforation, placement of ileostomy, abdominal washout with 7 L of normal saline, debridement of abdominal wall midline incision, patient of the Moiz-Hanley in the right anterior lateral hepatic space, placement of Moiz- Hanley drain in the right pelvis, quarter-inch Don drain in the subcutaneous tissue midline incision and placement of Provena incisional wound VAC system. Severe abdominal sepsis secondary to E. coli, pseudomonas aeruginosa, enterococcus faecium. Remains on Eraxis, meropenem. Septic shock secondary to above, recovered Acute hypoxemic respiratory failure secondary to above, recovered and on room air Febrile illness secondary to above, improved Leukocytosis secondary to above, improved Sinus tachycardia secondary to sepsis Acute kidney injury, recovered Acute lactic acidosis secondary to sepsis, recovered History of colon cancer status post robotic-assisted laparoscopic extended right hemicolectomy on 08/29/2022 Intra-abdominal abscess Abdominal ascites History of sarcoidosis Plan: The patient was seen and evaluated Labs and medications reviewed Currently stable and on room air Antibiotics per ID services Advance diet per surgical services Increase his activity as tolerated We will continue to follow I have personally seen and examined the patient, performed the documentation and the assessment and plan as written. Number of minutes spent on the visit: 10.
--- NOTE | 2022-09-25 12:48 | P.PN ---
Subjective This is a 52 year old male monitored in the intensive care unit postoperative day #4 lysis of adhesions and right hemicolectomy due to bowel perforation. Patient had end to end anastamosis. Has not had bowel movement, had KUB xray today showing multiple dilated small bowel loops possible ileus vs. obstruction. General surgery recommending patient to be NPO at this time. Heart rate remains elevated in the 120s and patient switched to IV lopressor. Remains on IV daptomycin and IV zosyn for positive peritoneal fluid culture with E. Coli, enterococcus and pseudomonas. Blood culture negative so far. Patient remains on D5 water at 100 mls/hr, sodium is slightly improved today down to 146. Continues on TPN, NG tube has been discontinued. Accuchecks switched to Q6h and small dose of levemir HS has been added. SARAI drain in place with serous drainage. Patient febrile today up to 101.9, encouraged to continue with incentive spirometer. Patient has wound vac in place to continuous suction, plan to ambulate around the room and up in the chair today. 09/09/2022 Patient is evaluated today in the ICU resting in bed. Alert x 3. Asking about discharge. Repeat blood culture is pending patient remains on IV antibiotics. White count up to 19.7 today. Patient reports BM yesterday and passing some gas today. Abdomen is more distended. Surgery recommending NG tube today. Patient remains NPO. Midline incisional wound vac in place. Patient remains with fever, using incentive spirometer reaching 1200. Continues on TPN. 09/10/2022 Patient remains in the intensive care unit. Patient continues to be NPO. 3 attempts were made to pass NG tube and were unsuccessful. Patient did have 2 BMs yesterday, abdomen remains significantly distended. Repeat abdominal pelvis CT reveals loculated and nonloculated perihepatic collections some of which demonst rate mildly thickened almeida with internal foci of air. Perihepatic abscesses are not excluded. Persistent dilation of small bowel with small bowel wall thickening and inflammatory change at the enterocolonic anastomotic site. Persistent postoperative ileus and/or obstructive changes not excluded. Adjacent drain is in place. Contrast does not opacify the anastomotic site and therefore leak is difficult to evaluate or exclude. Small amt of free air persists improved from prior study. White count 18.3 today, electrolytes are normalized and blood glucose improved to 115. Patient remains on TPN. Blood culture remains negative. Remains on IV zosyn and IV daptomycin. Temp of 100.4 and remains tachy cardic 121, blood pressure stable at 131/94. 09/11/2022 Patient is evaluated today in the intensive care unit. Remains tachycardic and T-Max of 100.7 overnight. Scheduled to undergo drainage and placement of drainage tube to the perihepatic abscess noted on CT imaging with IR today. White count down to 16.0 today. Continues on IV daptoymcin and IV vancomycin. Per nursing did have a small BM overnight. 09/12/2022 Patient evaluated today in the intensive care unit. Underwent CT guided abscess drainage with 100 mls of purulent drainage and also had midline fransisca removed at the top of incision with some purulent drainage. Patients white count is down to 12.8 today. Kidney function stable, sodium 135 today. Patient has been cleared to start diet, having small BMs. Metoprolol will be changed to oral. Fever is improving. Cultures are pending from the abscess and ID is following closely. 09/13/2022 Patient continues to be monitored closely in the intensive care unit. Patient continues with significant tachycardia not improving with metoprolol and continues with abdominal distention. Cardiology was placed on consultation for the tachycardia and patient has been transitioned back to IV lopressor. Wound cultures from the CT guided are showing gram negative bacilli. This morning per nursing the abdomen was more distended and patient had felt a popping sensation with evidence of leaking of brown colored drainage from the surgical incision and the drainage bag. The surgical incision was opened yesterday at the bedside by surgery. Patient was taken for emergent exploratory laporotomy. White count is 17.9 today, sodium 134, potassium 5.0. Kidney function remains stable. Patient has been continued to be NPO no NG tube present. Labs and vitals reviewed. 09/14/2022 Patient is evaluated today he is currently in the intensive care unit intubated and sedated he is on combination of nimbex and propofol. Patient is currently on the mechanical ventilator with 40% FiO2. Patient is also requiring levophed and vasopression. Patient continues on IV daptomycin and IV zosyn. The wound culture shows E.Coli. Patient underwent extensive exploratory laporotomy yesterday with lysis of adhesions, resection of the ileocolic anastamosis due to anastomotic leak, small bowel resection for small bowel necrosis/peforation with placement of ileostomy. Patient had nataliia-stone drain x 2 placed and alpa drain placed. Abdomen was closed with a wound vac. Temp is T-max 100.4 today. Labs rev eal white count of 20.1, hgb 9.3, sodium 131, potassium at 6.6 and 5.9, BUN 32, creatinine 2.15, blood glucose 394, calcium 6.4, magnesium 1.4. Patient received IV magnesium, IV gluconate, and IV insulin humulin N. 09/15/2022 Patient is seen in a follow-up continues to be in the ICU with multiple medical consultations following. Patient continues on mechanical ventilation with an FiO2 of 40% and PEEP is 5. Patient is maintained on IV antibiotics in the form of dapto and Zosyn with Infectious Disease Following Closely and Culture Showing E. coli with Multiple Sensitivities. Patient Continues to Have Fevers and White Count Elevated Slightly Trending down to 18 Today. Recent Ileostomy Placed with No Function at This Time and Patient Is Maintained on TPN. Patient Continues with Drains along with a Wound VAC of the Abdomen. Hemoglobin Trending down and upon Stopping Currently Would Recommend Monitoring Closely and Transfuse of 7 or Less. Nephrology Following As Well This Patient's Kidney Functions Worsened Although Appear Better Today. Patient Remains Tachycardic on the Monitor and Troponins Have Been Negative. Recommend Continuing with Accu-Cheks per Protocol and Tight Glycemic Control. 09/16/2022 Patient is seen and evaluated in follow-up today and continues to remain on mechanical ventilation maintained on fentanyl and propofol under sedation. FiO2 is 40% with a PEEP of 5. Hemoglobin critically low at 6.3 and receiving a unit of PRBCs. Would recommend a dose of Lasix after unit of blood. Patient's overall swelling showing some improvement on chest x-ray continues to so show some stable pleural effusions. No bowel activity per nursing staff noted as of yet in the ostomy. Kidney functions are trending down. Patient is continuing to have temps and would recommend repeat blood cultures, sputum culture, urine culture. 09/17/2022 Patient is seen in follow-up this morning continues to be in the ICU on mechanical ventilation and undergoing sedation holidays. FiO2 is 40% with a PEEP of 5. Per nursing staff patient is following commands on sedation holiday but not quite ready for weaning per pulmonary medical technologist generalist. Patient's hemoglobin is improved today at 7.6 status post 1 unit of PRBC yesterday. White count remains slightly elevated at 17.4 and patient continues to have fevers. Infectious disease following closely and repeat blood cultures along with sputum culture have all been sent. Initial culture showing some E. coli and patient is maintained on IV antibiotics in the form of daptomycin, Eraxis, and Zosyn as well awaiting finalized cultures. Patient is noted to have some loose liquid stool noted in the ostomy and is maintained on TPN. Patient is currently off pressor support as well. Prognosis Remains guarded. 09/18/2022 Patient is seen and evaluated in follow-up today continues to be in the ICU was recently extubated yesterday successfully currently maintained on 3 L via nasal cannula. Patient is off pressor support and blood pressure is mildly hypertensive and patient continues to be tacky. Patient most recent fever was last night of 100.4. Patient is maintained on IV antibiotics with infectious disease following and preliminary sputum cultures repeated show gram-negative an initial wound culture showing E. coli along with Pseudomonas and enterococcus. Patient had copious amounts of drainage from ostomy per nursing staff with general surgery is admitting and repeat CT abdomen is ordered and pending at th is time. C. diff sample also being sent which is pending at this time. Patient is maintained on TPN and will continue on strict nothing by mouth per surgery recommendations until Dr. Helton advances. WBC is 19.2 and hemoglobin is 8.2, sodium 142 with a potassium of 3.9 and current creatinine is 0.94. Magnesium is 2.1. Chest x-ray today shows bilateral infiltrates and small pleural effusions are stable. 09/19/2022 Patient admitted to the hospital for perforated colonic diverticulum after recent right hemicolectomy for his colon cancer and discharge home. Patient status post laparoscopic right hemicolectomy and primary anastomosis and drainage of abscess. This has been scanning of the abdominal and yesterday showing right lower quadrant seroma on abscesses and dilated small bowel which could be ileus versus obstruction. The patient with evidence of positive cultures including sputum with E. coli on wound culture with E. coli HER FLUID WITH E. COLI AND PSEUDOMONAS. PATIENT On MULTIPLE ANTIBIOTIC INCLUDING Eraxis, daptomycin and Zosyn 09/20/2029 Patient improving slowly and gradually Patient is more awake and relaxed, no new complaints Just tolerating diet and will be advanced as per surgery team No bowel movement but had high output ileostomy in the right lower quadrant still slightly tachycardic and tachypneic TPN and place 09/21/2022 Patient awake alert. He somewhat tolerates diet between 25 and 75%, it looks like preventing him from eating well he is infection and abdominal sepsis going unrelated to his perforated viscus on admission. Also he has high output RLQ related to infection as well. He has low-grade temperature 99.9 today and he is a broad-spectrum antibiotic of daptomycin, Zosyn and Eraxis. He has multiple cultures positive for E. coli, recent wound culture also growing gram-negative bacilli. TPN is in place, Cruz catheter in place 09/22/2022 Patient clinically is improving, his more more relaxed more comfortable and his eating more between 25-27% within he says that his progress and eating more However he lost his appetite when he was informed that he has a clot in his left upper extremity. Patient was started on heparin drip Also surgery team planned to undergo drainage of this abdominal abscess. An event that he remains on broad-spectrum antibiotics the same once as above. Cruz catheter in a Place 09/23/2022 No significant change from yesterday, on the contrary he continued to improve slowly and gradually, every day he is more awake and energetic and eats more. History of have high stool output from his ileostomy. No abdominal pain. Patient encouraged to eat. TPN still in place. Remains on multiple antibiotics with daptomycin, Zosyn and Eraxis. Heparin drip is wished Lovenox 100 mg twice daily subcutaneously. PICC line placed on the right arm. Surgery team on the case and they recommended drainage of fluid from the intra- abdominal cavity, however there is no IR service available currently in this facility, we will defer to surgery team further management. Patient will be transferred out of the ICU to the general medical floor today 09/24/2022 this morning patient was more anxious, more short of breath and more abdominal pain complain of, Xanax as provided for the patient, however her today his abdo men pain looks like is down. Patient underwent also aspiration of his intra- abdominal abscess by interventional radiologist. Patient tolerates diet slowly and gradually improving, still on TPN pulmonary service signed off the case remains on broad-spectrum antibiotics of Zosyn and daptomycin and Eraxis . 09/25/2022 Patient today feels full morning and he could not take his breakfast. No worsening abdominal pain TPN was weaned off. Hemodynamically he remains on Lovenox for left approximately DVT, hematology on the case which can be deferred to them anticoagulation management Patient remains on broad-spectrum antibiotics daptomycin and Zosyn. Objective - Vital Signs Vital signs: Vital Signs Temp 98.8 F 09/25/22 07:18 Pulse 100 09/25/22 09:52 Resp 18 09/25/22 09:52 BP 108/78 09/25/22 07:18 Pulse Ox 98 09/25/22 09:42 FiO2 40 09/17/22 10:41 Intake & Output 09/24/22 09/25/22 09/25/22 18:59 06:59 18:59 Intake Total 3556.333 330 Output Total 500 2100 Balance 3056.333 -1770 Weight 92.5 kg Intake: IV 240 120 0.9 @ KVO 240 120 Intake, IV Titration 2016.333 210 Amount Fat Emulsion 20% 250 ml 210 In Empty Bag 1 bag @ 21 mls/hr IV [id number] [facility] Rx#:[id number] Mvi, Adult No.4 with Vit 958.333 K 10 ml Trace (Conc-1Ml/ Dose) 1 ml Potassium Phosphate 3 mmol Sodium Acetate 80 meq Potassium Chloride 12 meq Magnesium Sulfate gm 0.5 gm Calcium Gluconate 1 gm In Amino Acids 5 %/Dextrose 20 % 1,000 ml @ 100 mls/ hr IV .BY DURATION [facility] Rx #:[id number] Potassium Phosphate 3 1058 mmol Sodium Acetate 80 meq Potassium Chloride 12 meq Magnesium Sulfate gm 0.5 gm Calcium Gluconate 1 gm In Amino Acids 5 %/ Dextrose 20 % 1,000 ml @ 100 mls/hr IV .BY DURATION [facility] Rx#: [id number] TPN/PPN 1200 0.9 @ KVO 1200 Lipid 100 0.9 @ KVO 100 Output: Urine 500 1600 Stool 500 ABP, PAP, CO, CI - Last Documented Arterial Blood Pressure 176/96 - Exam -GENERAL: The patient is drowsy, not in any acute distress. Well developed, well nourished. HEENT: Pupils are round and equally reacting to light. EOMI. No scleral icterus. No conjunctival pallor. Normocephalic, atraumatic. No pharyngeal erythema. No thyromegaly. CARDIOVASCULAR: S1 and S2 present. No murmurs, rubs, or gallops. PULMONARY: Chest is clear to auscultation, no wheezing . no crackles. -ABDOMEN: Soft, nontender, nondistended, normoactive bowel sounds. No palpable organomegaly. Healing surgical wound was dressed in a Place, Cruz catheter in place MUSCULOSKELETAL: No joint swelling or deformity. EXTREMITIES: No cyanosis, clubbing, or pedal edema. NEUROLOGICAL: Gross neurological examination did not reveal any focal deficits. SKIN: No rashes. no petechiae. - Labs CBC & Chem 7: 09/25/22 06:11 09/25/22 06:11 Labs: Abnormal Lab Results - Last 24 Hours (Table) 09/24/22 09/24/22 09/25/22 Range/Units 16:56 21:15 06:11 WBC (3.8-10.6) k/uL RBC (4.30-5.90) m/uL Hgb (13.0-17.5) gm/dL Hct (39.0-53.0) % RDW (11.5-15.5) % Neutrophils # (1.3-7.7) k/uL Sodium 135 L (137-145) mmol/L POC Glucose (mg/dL) 139 H 123 H (70-110) mg/dL 09/25/22 Range/Units 06:11 WBC 11.9 H (3.8-10.6) k/uL RBC 3.10 L (4.30-5.90) m/uL Hgb 8.3 L (13.0-17.5) gm/dL Hct 25.8 L (39.0-53.0) % RDW 17.3 H (11.5-15.5) % Neutrophils # 9.8 H (1.3-7.7) k/uL Sodium (137-145) mmol/L POC Glucose (mg/dL) (70-110) mg/dL Microbiology - Last 24 Hours (Table) 09/20/22 10:05 Anaerobic Culture - Final Abdominal Fluid Assessment and Plan Assessment: Perforated colonic diverticulum of the transverse: With recent history of laparoscopic hemicolectomy and primary anastomosis for colon cancer Neurologic small bowel could be ileus versus obstruction Left upper extremity DVT thrombosis Right lower quadrant seroma versus abscess Abdominal sepsis secondary to above Anemia Leukocytosis Plan: Start heparin drip Plan to drain intra-abdominal abscess by interventional radiologist Continue with antibiotic axis, daptomycin and Zosyn Encourage diet Continue TPN Multiple consultants including critical care pulmonary, infectious disease and surgery team Continue with Levemir insulin Labs and medication were reviewed.. Continue same treatment. Continue with sy mptomatic treatment. Resume home medication. Monitor labs and vitals. DVT and GI prophylaxis. Further recommendations as per clinical course of the patient DVT prophylaxis: heparin GI Prophylaxis: Ppi Prognosis is guarded
[2022-09-25 13:04] LABS: Glucose,Whole Blood 90 mg/dL (70-110)
--- NOTE | 2022-09-25 15:20 | P.PAINPG ---
Objective - Vital Signs Vital signs: Vital Signs Temp 98.2 F 09/25/22 13:32 Pulse 89 09/25/22 13:32 Resp 17 09/25/22 13:32 BP 118/80 09/25/22 13:32 Pulse Ox 99 09/25/22 13:32 FiO2 40 09/17/22 10:41 Intake & Output 09/24/22 09/25/22 09/25/22 18:59 06:59 18:59 Intake Total 3556.333 330 Output Total 500 2100 Balance 3056.333 -1770 Weight 92.5 kg Intake: IV 240 120 0.9 @ KVO 240 120 Intake, IV Titration 333 210 Amount Fat Emulsion 20% 250 ml 210 In Empty Bag 1 bag @ 21 mls/hr IV [id number] [facility] Rx#:[id number] Mvi, Adult No.4 with Vit 958.333 K 10 ml Trace (Conc-1Ml/ Dose) 1 ml Potassium Phosphate 3 mmol Sodium Acetate 80 meq Potassium Chloride 12 meq Magnesium Sulfate gm 0.5 gm Calcium Gluconate 1 gm In Amino Acids 5 %/Dextrose 20 % 1,000 ml @ 100 mls/ hr IV .BY DURATION [facility] Rx #:[id number] Potassium Phosphate 3 1058 mmol Sodium Acetate 80 meq Potassium Chloride 12 meq Magnesium Sulfate gm 0.5 gm Calcium Gluconate 1 gm In Amino Acids 5 %/ Dextrose 20 % 1,000 ml @ 100 mls/hr IV .BY DURATION [facility] Rx#: [id number] TPN/PPN 1200 0.9 @ KVO 1200 Lipid 100 0.9 @ KVO 100 Output: Urine 500 1600 Stool 500 ABP, PAP, CO, CI - Last Documented Arterial Blood Pressure 176/96 - Labs CBC & Chem 7: 09/25/22 06:11 09/25/22 06:11 Labs: Abnormal Lab Results - Last 24 Hours (Table) 09/24/22 09/24/22 09/25/22 Range/Units 16:56 21:15 06:11 WBC (3.8-10.6) k/uL RBC (4.30-5.90) m/uL Hgb (13.0-17.5) gm/dL Hct (39.0-53.0) % RDW (11.5-15.5) % Neutrophils # (1.3-7.7) k/uL Sodium 135 L (137-145) mmol/L POC Glucose (mg/dL) 139 H 123 H (70-110) mg/dL 09/25/22 Range/Units 06:11 WBC 11.9 H (3.8-10.6) k/uL RBC 3.10 L (4.30-5.90) m/uL Hgb 8.3 L (13.0-17.5) gm/dL Hct 25.8 L (39.0-53.0) % RDW 17.3 H (11.5-15.5) % Neutrophils # 9.8 H (1.3-7.7) k/uL Sodium (137-145) mmol/L POC Glucose (mg/dL) (70-110) mg/dL Microbiology - Last 24 Hours (Table) 09/20/22 10:05 Anaerobic Culture - Final Abdominal Fluid PQRS Measure Charge Sheet Comment: HISTORY OF PRESENT ILLNESS: 52 yr old inpatient male as a referral from [facility] presents today w severe and chronic abdominal pain secondary to R Partial Hemicolectomy s/p Transverse Colon Perforatin and abdominal lysis of adhesions due to Colon CA for evaluation. Pt states pain level is provoked at 9 /10 in intensity, constant, localized in the lower quadrants of the abdomen, achy, stabbing in character without shooting pain. Pain has no known provocative factors. Pain is alleviated very minimally by medications (Dilaudid 1mg IVP q3h prn pain, Tylenol 1,000mg q6h prn pain), pressure and rest. He is taking in oral nutrition and is interested in oral pain medication at this time. PMH: OA, Hyperlipidemia, Sarcoidosis PSH: Hemicolectomy s/p Colon CA (Aug 2022), Achilles Tendon Repair SH: Daily tobacco use, Occasional ETOH use, Cannabis use FH: Mo- No Reported History All: See list Meds: See list REVIEW OF ORGAN SYSTEMS: CONSTITUTIONAL: No fevers or chills. No recent weight loss. NEUROLOGICAL: + numbness and tingling along the distal extremities. No seizure disorders or headaches. MUSCULOSKELETAL: + pain PSYCHIATRIC: Denies current depression or suicidal thoughts. Physical Examinations : Constitutional : Cooperative , not in acute distress . Neurologic : Cranial nerve II to XII intact. No focal neurological deficits. Psychiatric : alert & oriented x 3. Matching mood & appropriate affect. Judgment & insight intact. Abdomen : Ileostomy in place w dark pink mucosa, no purulent drainage noted Musculoskeletal : Cervical Spine Motor strength in the deltoid and biceps: Normal right side. Normal Left side Motor strength biceps and the wrist extensors: Normal right side . Normal left side Motor strength in the triceps muscle: Normal right side. Normal left side Deep tendon reflexes: Normal at the biceps. Normal at Brachioradialis. Normal at triceps Vertebral body tenderness to deep palpation over Lumbar spine Motor strength lower extremities ,thigh and legs 5/5 Right side , 5/5 Left side Deep tendon reflexes : Normal Knee Jerk. Normal Ankle Jerk Vertebral body tenderness over Santiago Test positive Lumbar facet Loading Test: positive Right / positive Left Range of motion of the lumbar spine Flexion 30 degrees, extension 10 degrees Sacral spine : Severe tenderness over the Sacroiliac joint: right side / left side Range of motion: Flexion of the lumbar spine <60 degrees Assessment/ Plan : Partial Hemicolectomy s/p Transverse Colon Perforation due to adhesions s/p Colon CA Resection Recommendation of medication management. Short term supply to Percocet 10/325mg #18 NR. Use, side effects, adverse reactions and safe storage discussed. Pt acknowledged understanding. All questions answered. I have spent greater than 30 minutes on patient care today. Dr Vegas was available by phone for the evaluation of this patient. The time was used to review the medical records including relevant urine studies and Prescription history (MAPs), review of the available imaging, evaluation and examination of the patient, coordination of care with the medical staff and if applicable referring physicians, as well as creation of the medical record - Pain Location Abdomen Non-Pharmacological Interventions: Darkened Room, Environmental Control Pharmacological Interventions: Discuss Pain Med Options, Medication, PRN Medication Pain Comment: see mar pain assmt. PQRS Narrative: Smoking Status Current some day smoker Blood Pressure [Left Arm] 118/80 Blood Pressure [Right Radial 120/49 Artery] Blood Pressure [Right Arm] 135/98 Blood Pressure 130/96 Pain Intensity [Abdomen] 7 Pain Intensity [None] 0 Pain Intensity 0 Pain Scale Used Non Verbal Pain Indicator Scale Used Numeric (1 - 10) Home Medications: Ambulatory Orders Acetaminophen Tab [Tylenol Tab] 1,000 mg PO Q6HR PRN #30 tablet 08/31/22 Ibuprofen [Motrin] 600 mg PO Q8HR PRN #30 tab 08/31/22 Simethicone [Gas-X] 125 mg PO AC-TID PRN #20 capsule 08/31/22 oxyCODONE-APAP 7.5-325MG [Percocet 7.5-325 mg] 1 tab PO Q6HR PRN 3 Days #12 tab 08/31/22 Controlled Substance Measures - Controlled Substance Measures Is patient prescribed a controlled substance at discharge?: Yes When asked, does pt state using other controlled substances?: Yes If prescribed controlled substance>3 days was MAPS reviewed?: Prescribed <3 Days If Rx opioid, was Start Talking consent form obtained?: Yes If opioid is for acute pain is fill amount 7 days or less?: Yes Was information provided regarding opioid addiction?: Yes
--- NOTE | 2022-09-25 16:59 | P.PN ---
Subjective Progress Note Date: 09/25/22 Principal diagnosis: Small bowel obstruction, colon adenocarcinoma In follow-up today patient is ambulating with PT. He is tolerating oral intake. He has a provoked left upper extremity DVT secondary to PICC line, on treatment dose Lovenox, denies any bleeding Objective - Vital Signs Vital signs: Vital Signs Temp 98.2 F 09/25/22 13:32 Pulse 89 09/25/22 13:32 Resp 17 09/25/22 13:32 BP 118/80 09/25/22 13:32 Pulse Ox 99 09/25/22 13:32 FiO2 40 09/17/22 10:41 Intake & Output 09/24/22 09/25/22 09/25/22 18:59 06:59 18:59 Intake Total 3556.333 330 Output Total 500 2100 Balance 3056.333 -1770 Weight 92.5 kg Intake: IV 240 120 0.9 @ KVO 240 120 Intake, IV Titration 2016.333 210 Amount Fat Emulsion 20% 250 ml 210 In Empty Bag 1 bag @ 21 mls/hr IV [id number]@1800 [facility] Rx#:[id number] Mvi, Adult No.4 with Vit 958.333 K 10 ml Trace (Conc-1Ml/ Dose) 1 ml Potassium Phosphate 3 mmol Sodium Acetate 80 meq Potassium Chloride 12 meq Magnesium Sulfate gm 0.5 gm Calcium Gluconate 1 gm In Amino Acids 5 %/Dextrose 20 % 1,000 ml @ 100 mls/ hr IV .BY DURATION [facility] Rx #:[id number] Potassium Phosphate 3 1058 mmol Sodium Acetate 80 meq Potassium Chloride 12 meq Magnesium Sulfate gm 0.5 gm Calcium Gluconate 1 gm In Amino Acids 5 %/ Dextrose 20 % 1,000 ml @ 100 mls/hr IV .BY DURATION [facility] Rx#: [id number] TPN/PPN 1200 0.9 @ KVO 1200 Lipid 100 0.9 @ KVO 100 Output: Urine 500 1600 Stool 500 ABP, PAP, CO, CI - Last Documented Arterial Blood Pressure 176/96 - Constitutional General appearance: Present: average body habitus, cooperative, no acute distress - EENT Eyes: Present: anicteric sclerae, EOMI ENT: Present: hearing grossly normal - Respiratory Respiratory: bilateral: CTA - Cardiovascular Rhythm: regular Heart sounds: normal: S1, S2 Abnormal Heart Sounds: Absent: systolic murmur, diastolic murmur, rub, S3 Gallop, S4 Gallop, click, other - Peripheral edema leg Peripheral Edema: bilateral: None - Gastrointestinal General gastrointestinal: Present: normal bowel sounds, soft - Integumentary Integumentary: Present: normal - Neurologic Neurologic: Present: CNII-XII intact - Musculoskeletal Musculoskeletal: Present: generalized weakness, strength equal bilaterally - Psychiatric Psychiatric: Present: A&O x's 3, appropriate affect, intact judgment & insight - Labs CBC & Chem 7: 09/25/22 06:11 09/25/22 06:11 Labs: Abnormal Lab Results - Last 24 Hours (Table) 09/24/22 09/24/22 09/25/22 Range/Units 16:56 21:15 06:11 WBC (3.8-10.6) k/uL RBC (4.30-5.90) m/uL Hgb (13.0-17.5) gm/dL Hct (39.0-53.0) % RDW (11.5-15.5) % Neutrophils # (1.3-7.7) k/uL Sodium 135 L (137-145) mmol/L POC Glucose (mg/dL) 139 H 123 H (70-110) mg/dL 09/25/22 Range/Units 06:11 WBC 11.9 H (3.8-10.6) k/uL RBC 3.10 L (4.30-5.90) m/uL Hgb 8.3 L (13.0-17.5) gm/dL Hct 25.8 L (39.0-53.0) % RDW 17.3 H (11.5-15.5) % Neutrophils # 9.8 H (1.3-7.7) k/uL Sodium (137-145) mmol/L POC Glucose (mg/dL) (70-110) mg/dL Assessment and Plan (1) Colon adenocarcinoma Current Visit: Yes Status: Acute Priority: High Code(s): C18.9 - MALIGNANT NEOPLASM OF COLON, UNSPECIFIED SNOMED Code(s): 342552374 Plan: Colon adenocarcinoma -Dr. Finn reviewed the pathology results with the patient early this hospitalization. Based on mucinous features of the tumor, 6 lymph nodes sampled and tumor eroding through the colon adhered to the small bowel the recommendation is for adjuvant treatment. Patient is a very high risk for malignant cells to have detached from the primary tumor. Patient verbalized understanding the reasoning behind adjuvant treatment. -Pt has had 2 more surgeries-no malignant tissue in those specimens -Treatment will not begin for at least 4 weeks postop. Patient will be reassessed in the office in about 2 weeks to see how he is doing -Defer postop care to surgery -Patient is on a general floor now and beginning to work with physical therapy Left upper extremity DVT -Provoked. Secondary to PICC line -Patient currently on treatment dose Lovenox twice a day -3 mo anticoagulation recommended -We will send Rx or eliquis to see if co-pay is affordable. Will change pt over if it is
[2022-09-25 17:01] LABS: Glucose,Whole Blood 84 mg/dL (70-110)
[2022-09-25] MEDS: ALPRAZolam 0.25 MG TAB PO PRN (20:53)
[2022-09-25 20:57] LABS: Glucose,Whole Blood 91 mg/dL (70-110)
[2022-09-26] MEDS: HYDROmorphone 1 MG/ML 1 ML SYRINGE IVP PRN ×2 (00:03→08:52)
[2022-09-26] MEDS: MEROPENEM 1 GM in SODIUM CHLORIDE 0.9% 100 ML IVPB SCH ×2 (04:27→14:22)
[2022-09-26] MEDS: INSULIN DETEMIR (LEVEMIR) 100 UNIT/ML SYR SQ SCH (05:55)
[2022-09-26 05:56] LABS: Glucose,Whole Blood 92 mg/dL (70-110)
[2022-09-26] MEDS: INSULIN ASPART (NovoLOG) 100 UNIT/ML VIAL SQ SCH ×2 (05:56)
[2022-09-26] MEDS: IPRATROPIUM-ALBUTEROL 3 ML NEB INHALATION SCH ×3 (08:32→15:30)
--- NOTE | 2022-09-26 08:32 | P.PN ---
Subjective Progress Note Date: 09/24/22 Principal diagnosis: Intra-abdominal abscess Patient is a 52-year-old male presenting to the hospital with abdominal pain has been diagnosed with an intra-abdominal abscess from perforated diverticulum status post laparotomy and drainage of the abscess. Patient is status post IR drainage of perihepatic abscess completed on 09/11/2022, Patient was taken back to the OR on 09/13/2022 for small bowel necrosis and perforation, the patient is status post exploration laparotomy and lysis of addition resection of the ileocolonic anastomosis and drainage of the perihepatic local area abscess small bowel resection and creation of ileostomy on today's evaluation that is 09/24/2022, the patient is afebrile he is breathing comfortably on room air denies any chest pain or shortness of breath occasional cough no nausea no vomiting some abdominal discomfort but no worsening and did have output in his ileostomy bag Objective - Vital Signs Vital signs: Vital Signs Temp 99.6 F 09/24/22 07:43 Pulse 100 09/24/22 10:03 Resp 18 09/24/22 07:43 BP 144/85 09/24/22 07:43 Pulse Ox 96 09/24/22 07:43 FiO2 40 09/17/22 10:41 Intake & Output 09/23/22 09/24/22 09/24/22 18:59 06:59 18:59 Intake Total 744.097 1881 Output Total 2380 3000 Balance -1395.076 -611 Weight 98.1 kg 97 kg Intake: IV 180 120 0.9 @ KVO 80 120 Anidulafungin 100 mg In 100 Sodium Chloride 0.9% 100 ml @ 84 mls/hr IVPB DAILY [facility] Rx#:[id number] Intake, IV Titration 024.242 6779 Amount Anidulafungin 100 mg In 100 Sodium Chloride 0.9% 100 ml @ 84 mls/hr IVPB DAILY [facility] Rx#:[id number] Heparin Sod,Pork in 0.45% 54.924 NaCl 25,000 unit In 0.45 % NaCl 1 250ml.bag @ 10. 05 UNITS/KG/HR 10 mls/hr IV .Q24H [facility] Rx#: [id number] Mvi, Adult No.4 with Vit 1069 K 10 ml Trace (Conc-1Ml/ Dose) 1 ml Potassium Phosphate 3 mmol Sodium Acetate 80 meq Potassium Chloride 12 meq Magnesium Sulfate gm 0.5 gm Calcium Gluconate 1 gm In Amino Acids 5 %/Dextrose 20 % 1,000 ml @ 100 mls/ hr IV .BY DURATION [facility] Rx #:[id number] Potassium Phosphate 3 400 mmol Sodium Acetate 80 meq Potassium Chloride 12 meq Magnesium Sulfate gm 0.5 gm Calcium Gluconate 1 gm In Amino Acids 5 %/ Dextrose 20 % 1,000 ml @ 100 mls/hr IV .BY DURATION [facility] Rx#: [id number] Oral 250 TPN/PPN 1200 0.9 @ KVO 1200 Output: Urine 880 1200 Stool 1500 1800 Other: Voiding Method Urinal Urinal ABP, PAP, CO, CI - Last Documented Arterial Blood Pressure 176/96 - Exam GENERAL DESCRIPTION: A middle-age male lying in bed in no distress RESPIRATORY SYSTEM: Unlabored breathing , decreased breath sounds at bases HEART: S1 S2 regular rate and rhythm , ABDOMEN: Soft , midline incision is intact and did have output in ileostomy EXTREMITIES: No edema feet - Labs CBC & Chem 7: 09/25/22 06:11 09/25/22 06:11 Labs: Abnormal Lab Results - Last 24 Hours (Table) 09/23/22 09/23/22 09/24/22 Range/Units 16:13 21:14 06:12 WBC (3.8-10.6) k/uL RBC (4.30-5.90) m/uL Hgb (13.0-17.5) gm/dL Hct (39.0-53.0) % RDW (11.5-15.5) % Neutrophils # (1.3-7.7) k/uL Sodium (137-145) mmol/L Glucose (74-99) mg/dL POC Glucose (mg/dL) 129 H 152 H 152 H (70-110) mg/dL Calcium (8.4-10.2) mg/dL 09/24/22 09/24/22 09/24/22 Range/Units 06:17 09:26 11:08 WBC 14.5 H (3.8-10.6) k/uL RBC 3.03 L (4.30-5.90) m/uL Hgb 8.4 L (13.0-17.5) gm/dL Hct 25.4 L (39.0-53.0) % RDW 17.0 H (11.5-15.5) % Neutrophils # 12.3 H (1.3-7.7) k/uL Sodium 136 L (137-145) mmol/L Glucose 134 H (74-99) mg/dL POC Glucose (mg/dL) 177 H (70-110) mg/dL Calcium 8.3 L (8.4-10.2) mg/dL Microbiology - Last 24 Hours (Table) 09/20/22 10:05 Anaerobic Culture - Final Abdominal Fluid 09/04/22 19:50 Gram Stain - Final Peritoneal Fluid Body Fluid Culture - Final Escherichia coli Pseudomonas aeruginosa Enterococcus faecium Assessment and Plan (1) Intra-abdominal abscess Current Visit: Yes Status: Acute Code(s): K65.1 - PERITONEAL ABSCESS SNOMED Code(s): 48238939 Plan: 1patient with sepsis in this patient who did have a fever tachycardia elevated white count source is intra-abdominal in this patient with evidence of colonic diverticular perforation intra-abdominal abscess status post laparotomy drainage of the abscess and primary anastomosis , cultures growing E. coli Pseudomonas and Enterococcus faecium with sensitivities pending. 2patient with fever and elevated white count concerning for perihepatic abscess, the patient is status post CT-guided drainage culture has been obtained which dual E. coli which is sensitive pathogen 3-patient did have subsequent bowl perforation from small bowel necrosis status post extensive abdominal surgery lysis of adhesion and creation of ileostomy cultures has been obtained and those are currently growing E. coli sensitive to Zosyn sputum grew the same E. coli that is sensitive to Zosyn 4-patient did have cultures obtained on 09/20/2022 from his abdominal wound drainage as there is evidence of right lower quadrant abscess those cultures are growing E. coli that is resistant to Zosyn and Unasyn along with binta 5- The patient white count is trending down down to 14,000 we will keep the patient on meropenem and Eraxis discontinue daptomycin with the gram-positive growth so far Time with Patient: Less than 30
--- NOTE | 2022-09-26 08:35 | P.PN ---
Subjective Progress Note Date: 09/25/22 Principal diagnosis: Intra-abdominal abscess Patient is a 52-year-old male presenting to the hospital with abdominal pain has been diagnosed with an intra-abdominal abscess from perforated diverticulum status post laparotomy and drainage of the abscess. Patient is status post IR drainage of perihepatic abscess completed on 09/11/2022, Patient was taken back to the OR on 09/13/2022 for small bowel necrosis and perforation, the patient is status post exploration laparotomy and lysis of addition resection of the ileocolonic anastomosis and drainage of the perihepatic local area abscess small bowel resection and creation of ileostomy on today's evaluation that is 09/25/2022, patient remains to be afebrile, the patient is breathing comfortably on 2 L nasal oxygen, the patient have occasional cough but no sputum production denies any nausea no vomiting abdominal pain is currently controlled tolerating his diet and did have output in his ileostomy Objective - Vital Signs Vital signs: Vital Signs Temp 98.8 F 09/25/22 07:18 Pulse 100 09/25/22 09:52 Resp 18 09/25/22 09:52 BP 108/78 09/25/22 07:18 Pulse Ox 98 09/25/22 09:42 FiO2 40 09/17/22 10:41 Intake & Output 09/24/22 09/25/22 09/25/22 18:59 06:59 18:59 Intake Total 3556.333 330 Output Total 500 2100 Balance 3056.333 -1770 Weight 92.5 kg Intake: IV 240 120 0.9 @ KVO 240 120 Intake, IV Titration 2016333 210 Amount Fat Emulsion 20% 250 ml 210 In Empty Bag 1 bag @ 21 mls/hr IV [id number]@1800 [facility] Rx#:[id number] Mvi, Adult No.4 with Vit 958.333 K 10 ml Trace (Conc-1Ml/ Dose) 1 ml Potassium Phosphate 3 mmol Sodium Acetate 80 meq Potassium Chloride 12 meq Magnesium Sulfate gm 0.5 gm Calcium Gluconate 1 gm In Amino Acids 5 %/Dextrose 20 % 1,000 ml @ 100 mls/ hr IV .BY DURATION [facility] Rx #:[id number] Potassium Phosphate 3 1058 mmol Sodium Acetate 80 meq Potassium Chloride 12 meq Magnesium Sulfate gm 0.5 gm Calcium Gluconate 1 gm In Amino Acids 5 %/ Dextrose 20 % 1,000 ml @ 100 mls/hr IV .BY DURATION [facility] Rx#: [id number] TPN/PPN 1200 0.9 @ KVO 1200 Lipid 100 0.9 @ KVO 100 Output: Urine 500 1600 Stool 500 ABP, PAP, CO, CI - Last Documented Arterial Blood Pressure 176/96 - Exam GENERAL DESCRIPTION: A middle-age male lying in bed in no distress RESPIRATORY SYSTEM: Unlabored breathing , decreased breath sounds at bases HEART: S1 S2 regular rate and rhythm , ABDOMEN: Soft , midline incision is intact and did have output in ileostomy EXTREMITIES: No edema feet - Labs CBC & Chem 7: 09/25/22 06:11 09/25/22 06:11 Labs: Abnormal Lab Results - Last 24 Hours (Table) 09/24/22 09/24/22 09/25/22 Range/Units 16:56 21:15 06:11 WBC (3.8-10.6) k/uL RBC (4.30-5.90) m/uL Hgb (13.0-17.5) gm/dL Hct (39.0-53.0) % RDW (11.5-15.5) % Neutrophils # (1.3-7.7) k/uL Sodium 135 L (137-145) mmol/L POC Glucose (mg/dL) 139 H 123 H (70-110) mg/dL 09/25/22 Range/Units 06:11 WBC 11.9 H (3.8-10.6) k/uL RBC 3.10 L (4.30-5.90) m/uL Hgb 8.3 L (13.0-17.5) gm/dL Hct 25.8 L (39.0-53.0) % RDW 17.3 H (11.5-15.5) % Neutrophils # 9.8 H (1.3-7.7) k/uL Sodium (137-145) mmol/L POC Glucose (mg/dL) (70-110) mg/dL Microbiology - Last 24 Hours (Table) 09/20/22 10:05 Anaerobic Culture - Final Abdominal Fluid Assessment and Plan (1) Intra-abdominal abscess Current Visit: Yes Status: Acute Code(s): K65.1 - PERITONEAL ABSCESS SNOMED Code(s): 70995458 Plan: 1patient with sepsis in this patient who did have a fever tachycardia elevated white count source is intra-abdominal in this patient with evidence of colonic diverticular perforation intra-abdominal abscess status post laparotomy drainage of the abscess and primary anastomosis , cultures growing E. coli Pseudomonas and Enterococcus faecium with sensitivities pending. 2patient with fever and elevated white count concerning for perihepatic abscess, the patient is status post CT-guided drainage culture has been obtained which dual E. coli which is sensitive pathogen 3-patient did have subsequent bowl perforation from small bowel necrosis status post extensive abdominal surgery lysis of adhesion and creation of ileostomy cultures has been obtained and those are currently growing E. coli sensitive to Zosyn sputum grew the same E. coli that is sensitive to Zosyn 4-patient did have cultures obtained on 09/20/2022 from his abdominal wound drainage as there is evidence of right lower quadrant abscess those cultures are growing E. coli that is resistant to Zosyn and Unasyn along with binta, Apparently no IR services available for drainage of the right lower quadrant abscess 5the patient white count is down to 11.9, the patient remains to be afebrile patient will continue on meropenem and Eraxis x2 weeks and the plan for a repeat CT abdominal pelvis before discontinuation of antibiotics to ensure complete resolution of the abscess Time with Patient: Less than 30
[2022-09-26] MEDS: ONDANSETRON 4 MG/2 ML VIAL IVP PRN (08:40)
[2022-09-26] MEDS: METOPROLOL TARTRATE 50 MG TAB PO SCH (08:43)
[2022-09-26] MEDS: PANTOPRAZOLE 40 MG/10 ML VIAL IV SCH (08:43)
[2022-09-26] MEDS: ENOXAPARIN 100 MG/ML SYRINGE SQ SCH (08:53)
[2022-09-26] MEDS: ANIDULAFUNGIN 100 MG in SODIUM CHLORIDE 0.9% 100 ML IVPB SCH (09:06)
[2022-09-26] MEDS ORDERED: oxyCODONE-APAP 10-325MG 1 EACH TAB PO PRN (10:17)
[2022-09-26 11:13] LABS: Basophils # (A) 0.05 X 10*3/uL (0.00-0.10); Basophils % (A) 0.4 %; Eosinophils % (A) 2.5 %; HCT 26.9 % (39.6-50.0); HGB 8.6 d/dL (12.0-15.0); Lymphocytes # (A) 0.81 X 10*3/uL (0.90-5.00); Lymphocytes % (A) 6.8 %; MCH 26.9 pg (27.0-32.0); MCV 84.1 FL (80.0-97.0); Mean Platelet Volume 11.1 FL (9.5-12.2); Monocytes # (A) 0.83 X 10*3/uL (0.20-1.00); NRBC Per 100 WBC 0 X 10*3/uL (0.00-0.01); Neutrophils # (A) 9.88 X 10*3/uL (1.80-7.70); Neutrophils % (A) 82.8 %; Platelet Count 275 X 10*3/uL (140-440); RDW 15.7 % (11.5-14.5); WBC 11.93 X 10*3/uL (4.50-10.00)
[2022-09-26 11:17] LABS: Glucose,Whole Blood 151 mg/dL (70-110)
[2022-09-26 11:20] LABS: BUN/Creat Ratio 16.89 Ratio (12.00-20.00); Blood Urea Nitrogen 15.2 mg/dL (9.0-27.0); Calcium 9.2 mg/dL (8.7-10.3); Carbon Dioxide 25.1 mmol/L (21.6-31.8); Chloride 101 mmol/L (96-109); Glucose 78 mg/dL (70-110); Potassium 4.9 mmol/L (3.5-5.5); Sodium 139 mmol/L (135-145)
[2022-09-26 11:21] LABS: ALT 36 U/L (10-49); AST 25 U/L (14-35); Albumin 3.1 d/dL (3.8-4.9); Albumin/Globulin Ratio 0.91 Ratio (1.60-3.17); Alkaline Phosphatase 160 U/L (41-126); Globulin 3.4 d/dL (1.6-3.3); Total Bilirubin 0.6 mg/dL (0.3-1.2); Total Protein 6.5 d/dL (6.2-8.2)
--- NOTE | 2022-09-26 11:21 | P.PN ---
Subjective This is a 52 year old male monitored in the intensive care unit postoperative day #4 lysis of adhesions and right hemicolectomy due to bowel perforation. Patient had end to end anastamosis. Has not had bowel movement, had KUB xray today showing multiple dilated small bowel loops possible ileus vs. obstruction. General surgery recommending patient to be NPO at this time. Heart rate remains elevated in the 120s and patient switched to IV lopressor. Remains on IV daptomycin and IV zosyn for positive peritoneal fluid culture with E. Coli, enterococcus and pseudomonas. Blood culture negative so far. Patient remains on D5 water at 100 mls/hr, sodium is slightly improved today down to 146. Continues on TPN, NG tube has been discontinued. Accuchecks switched to Q6h and small dose of levemir HS has been added. SARAI drain in place with serous drainage. Patient febrile today up to 101.9, encouraged to continue with incentive spirometer. Patient has wound vac in place to continuous suction, plan to ambulate around the room and up in the chair today. 09/09/2022 Patient is evaluated today in the ICU resting in bed. Alert x 3. Asking about discharge. Repeat blood culture is pending patient remains on IV antibiotics. White count up to 19.7 today. Patient reports BM yesterday and passing some gas today. Abdomen is more distended. Surgery recommending NG tube today. Patient remains NPO. Midline incisional wound vac in place. Patient remains with fever, using incentive spirometer reaching 1200. Continues on TPN. 09/10/2022 Patient remains in the intensive care unit. Patient continues to be NPO. 3 attempts were made to pass NG tube and were unsuccessful. Patient did have 2 BMs yesterday, abdomen remains significantly distended. Repeat abdominal pelvis CT reveals loculated and nonloculated perihepatic collections some of which demonst rate mildly thickened almeida with internal foci of air. Perihepatic abscesses are not excluded. Persistent dilation of small bowel with small bowel wall thickening and inflammatory change at the enterocolonic anastomotic site. Persistent postoperative ileus and/or obstructive changes not excluded. Adjacent drain is in place. Contrast does not opacify the anastomotic site and therefore leak is difficult to evaluate or exclude. Small amt of free air persists improved from prior study. White count 18.3 today, electrolytes are normalized and blood glucose improved to 115. Patient remains on TPN. Blood culture remains negative. Remains on IV zosyn and IV daptomycin. Temp of 100.4 and remains tachy cardic 121, blood pressure stable at 131/94. 09/11/2022 Patient is evaluated today in the intensive care unit. Remains tachycardic and T-Max of 100.7 overnight. Scheduled to undergo drainage and placement of drainage tube to the perihepatic abscess noted on CT imaging with IR today. White count down to 16.0 today. Continues on IV daptoymcin and IV vancomycin. Per nursing did have a small BM overnight. 09/12/2022 Patient evaluated today in the intensive care unit. Underwent CT guided abscess drainage with 100 mls of purulent drainage and also had midline fransisca removed at the top of incision with some purulent drainage. Patients white count is down to 12.8 today. Kidney function stable, sodium 135 today. Patient has been cleared to start diet, having small BMs. Metoprolol will be changed to oral. Fever is improving. Cultures are pending from the abscess and ID is following closely. 09/13/2022 Patient continues to be monitored closely in the intensive care unit. Patient continues with significant tachycardia not improving with metoprolol and continues with abdominal distention. Cardiology was placed on consultation for the tachycardia and patient has been transitioned back to IV lopressor. Wound cultures from the CT guided are showing gram negative bacilli. This morning per nursing the abdomen was more distended and patient had felt a popping sensation with evidence of leaking of brown colored drainage from the surgical incision and the drainage bag. The surgical incision was opened yesterday at the bedside by surgery. Patient was taken for emergent exploratory laporotomy. White count is 17.9 today, sodium 134, potassium 5.0. Kidney function remains stable. Patient has been continued to be NPO no NG tube present. Labs and vitals reviewed. 09/14/2022 Patient is evaluated today he is currently in the intensive care unit intubated and sedated he is on combination of nimbex and propofol. Patient is currently on the mechanical ventilator with 40% FiO2. Patient is also requiring levophed and vasopression. Patient continues on IV daptomycin and IV zosyn. The wound culture shows E.Coli. Patient underwent extensive exploratory laporotomy yesterday with lysis of adhesions, resection of the ileocolic anastamosis due to anastomotic leak, small bowel resection for small bowel necrosis/peforation with placement of ileostomy. Patient had nataliia-stone drain x 2 placed and alpa drain placed. Abdomen was closed with a wound vac. Temp is T-max 100.4 today. Labs rev eal white count of 20.1, hgb 9.3, sodium 131, potassium at 6.6 and 5.9, BUN 32, creatinine 2.15, blood glucose 394, calcium 6.4, magnesium 1.4. Patient received IV magnesium, IV gluconate, and IV insulin humulin N. 09/15/2022 Patient is seen in a follow-up continues to be in the ICU with multiple medical consultations following. Patient continues on mechanical ventilation with an FiO2 of 40% and PEEP is 5. Patient is maintained on IV antibiotics in the form of dapto and Zosyn with Infectious Disease Following Closely and Culture Showing E. coli with Multiple Sensitivities. Patient Continues to Have Fevers and White Count Elevated Slightly Trending down to 18 Today. Recent Ileostomy Placed with No Function at This Time and Patient Is Maintained on TPN. Patient Continues with Drains along with a Wound VAC of the Abdomen. Hemoglobin Trending down and upon Stopping Currently Would Recommend Monitoring Closely and Transfuse of 7 or Less. Nephrology Following As Well This Patient's Kidney Functions Worsened Although Appear Better Today. Patient Remains Tachycardic on the Monitor and Troponins Have Been Negative. Recommend Continuing with Accu-Cheks per Protocol and Tight Glycemic Control. 09/16/2022 Patient is seen and evaluated in follow-up today and continues to remain on mechanical ventilation maintained on fentanyl and propofol under sedation. FiO2 is 40% with a PEEP of 5. Hemoglobin critically low at 6.3 and receiving a unit of PRBCs. Would recommend a dose of Lasix after unit of blood. Patient's overall swelling showing some improvement on chest x-ray continues to so show some stable pleural effusions. No bowel activity per nursing staff noted as of yet in the ostomy. Kidney functions are trending down. Patient is continuing to have temps and would recommend repeat blood cultures, sputum culture, urine culture. 09/17/2022 Patient is seen in follow-up this morning continues to be in the ICU on mechanical ventilation and undergoing sedation holidays. FiO2 is 40% with a PEEP of 5. Per nursing staff patient is following commands on sedation holiday but not quite ready for weaning per pulmonary remote control assembler. Patient's hemoglobin is improved today at 7.6 status post 1 unit of PRBC yesterday. White count remains slightly elevated at 17.4 and patient continues to have fevers. Infectious disease following closely and repeat blood cultures along with sputum culture have all been sent. Initial culture showing some E. coli and patient is maintained on IV antibiotics in the form of daptomycin, Eraxis, and Zosyn as well awaiting finalized cultures. Patient is noted to have some loose liquid stool noted in the ostomy and is maintained on TPN. Patient is currently off pressor support as well. Prognosis Remains guarded. 09/18/2022 Patient is seen and evaluated in follow-up today continues to be in the ICU was recently extubated yesterday successfully currently maintained on 3 L via nasal cannula. Patient is off pressor support and blood pressure is mildly hypertensive and patient continues to be tacky. Patient most recent fever was last night of 100.4. Patient is maintained on IV antibiotics with infectious disease following and preliminary sputum cultures repeated show gram-negative an initial wound culture showing E. coli along with Pseudomonas and enterococcus. Patient had copious amounts of drainage from ostomy per nursing staff with general surgery is admitting and repeat CT abdomen is ordered and pending at th is time. C. diff sample also being sent which is pending at this time. Patient is maintained on TPN and will continue on strict nothing by mouth per surgery recommendations until Dr. Helton advances. WBC is 19.2 and hemoglobin is 8.2, sodium 142 with a potassium of 3.9 and current creatinine is 0.94. Magnesium is 2.1. Chest x-ray today shows bilateral infiltrates and small pleural effusions are stable. 09/19/2022 Patient admitted to the hospital for perforated colonic diverticulum after recent right hemicolectomy for his colon cancer and discharge home. Patient status post laparoscopic right hemicolectomy and primary anastomosis and drainage of abscess. This has been scanning of the abdominal and yesterday showing right lower quadrant seroma on abscesses and dilated small bowel which could be ileus versus obstruction. The patient with evidence of positive cultures including sputum with E. coli on wound culture with E. coli HER FLUID WITH E. COLI AND PSEUDOMONAS. PATIENT On MULTIPLE ANTIBIOTIC INCLUDING Eraxis, daptomycin and Zosyn 09/20/2029 Patient improving slowly and gradually Patient is more awake and relaxed, no new complaints Just tolerating diet and will be advanced as per surgery team No bowel movement but had high output ileostomy in the right lower quadrant still slightly tachycardic and tachypneic TPN and place 09/21/2022 Patient awake alert. He somewhat tolerates diet between 25 and 75%, it looks like preventing him from eating well he is infection and abdominal sepsis going unrelated to his perforated viscus on admission. Also he has high output RLQ related to infection as well. He has low-grade temperature 99.9 today and he is a broad-spectrum antibiotic of daptomycin, Zosyn and Eraxis. He has multiple cultures positive for E. coli, recent wound culture also growing gram-negative bacilli. TPN is in place, Cruz catheter in place 09/22/2022 Patient clinically is improving, his more more relaxed more comfortable and his eating more between 25-27% within he says that his progress and eating more However he lost his appetite when he was informed that he has a clot in his left upper extremity. Patient was started on heparin drip Also surgery team planned to undergo drainage of this abdominal abscess. An event that he remains on broad-spectrum antibiotics the same once as above. Cruz catheter in a Place 09/23/2022 No significant change from yesterday, on the contrary he continued to improve slowly and gradually, every day he is more awake and energetic and eats more. History of have high stool output from his ileostomy. No abdominal pain. Patient encouraged to eat. TPN still in place. Remains on multiple antibiotics with daptomycin, Zosyn and Eraxis. Heparin drip is wished Lovenox 100 mg twice daily subcutaneously. PICC line placed on the right arm. Surgery team on the case and they recommended drainage of fluid from the intra- abdominal cavity, however there is no IR service available currently in this facility, we will defer to surgery team further management. Patient will be transferred out of the ICU to the general medical floor today 09/24/2022 this morning patient was more anxious, more short of breath and more abdominal pain complain of, Xanax as provided for the patient, however her today his abdo men pain looks like is down. Patient underwent also aspiration of his intra- abdominal abscess by interventional radiologist. Patient tolerates diet slowly and gradually improving, still on TPN pulmonary service signed off the case remains on broad-spectrum antibiotics of Zosyn and daptomycin and Eraxis . 09/25/2022 Patient today feels full morning and he could not take his breakfast. No worsening abdominal pain TPN was weaned off. Hemodynamically he remains on Lovenox for left approximately DVT, hematology on the case which can be deferred to them anticoagulation management Patient remains on broad-spectrum antibiotics daptomycin and Zosyn. 09/26/2022 Patient awake alert, slightly lethargic but improving gradually He denies any new complaints, still has some abdominal pain and tenderness which is expected. No chest pain or dyspnea. Vitals are stable. TPN was discontinued to encourage patient to eat Vitals and labs are stable Remains a broad-spectrum antibiotic as before. Heparin drip and Lovenox bridge or discontinued and his wished to therapeutic dose of Eliquis Objective - Vital Signs Vital signs: Vital Signs Temp 97.7 F 09/26/22 07:14 Pulse 99 09/26/22 07:14 Resp 17 09/26/22 07:14 BP 113/77 09/26/22 07:14 Pulse Ox 99 09/26/22 07:14 FiO2 40 09/17/22 10:41 Intake & Output 09/25/22 09/26/22 09/26/22 18:59 06:59 18:59 Output Total 1700 600 500 Balance -1700 -600 -500 Weight 92 kg Output: Urine 500 600 Stool 1200 500 Other: Voiding Method Urinal ABP, PAP, CO, CI - Last Documented Arterial Blood Pressure 176/96 - Exam -GENERAL: The patient is drowsy, not in any acute distress. Well developed, well nourished. HEENT: Pupils are round and equally reacting to light. EOMI. No scleral icterus. No conjunctival pallor. Normocephalic, atraumatic. No pharyngeal erythema. No thyromegaly. CARDIOVASCULAR: S1 and S2 present. No murmurs, rubs, or gallops. PULMONARY: Chest is clear to auscultation, no wheezing . no crackles. -ABDOMEN: Soft, nontender, nondistended, normoactive bowel sounds. No palpable organomegaly. Healing surgical wound was dressed in a Place, Cruz catheter in place MUSCULOSKELETAL: No joint swelling or deformity. EXTREMITIES: No cyanosis, clubbing, or pedal edema. NEUROLOGICAL: Gross neurological examination did not reveal any focal deficits. SKIN: No rashes. no petechiae. - Labs CBC & Chem 7: 09/26/22 06:37 09/25/22 06:11 Labs: Abnormal Lab Results - Last 24 Hours (Table) 09/26/22 09/26/22 Range/Units 06:37 11:16 WBC 11.93 H (4.50-10.00) X 10*3/uL RBC 3.20 L (4.40-5.60) X 10*6/uL Hgb 8.6 L (12.0-15.0) d/dL Hct 26.9 L (39.6-50.0) % MCH 26.9 L (27.0-32.0) pg RDW 15.7 H (11.5-14.5) % Neutrophils # 9.88 H (1.80-7.70) X 10*3/uL Lymphocytes # 0.81 L (0.90-5.00) X 10*3/uL POC Glucose (mg/dL) 151 H (70-110) mg/dL Assessment and Plan Assessment: Perforated colonic diverticulum of the transverse: With recent history of laparoscopic hemicolectomy and primary anastomosis for colon cancer Neurologic small bowel could be ileus versus obstruction Left upper extremity DVT thrombosis Right lower quadrant seroma versus abscess Abdominal sepsis secondary to above Anemia Leukocytosis Plan: Continue with antibiotic axis, daptomycin and Zosyn Encourage diet discontinue TPN Multiple consultants including critical care pulmonary, infectious disease and surgery team Continue with Levemir insulin Labs and medication were reviewed.. Continue same treatment. Continue with symptomatic treatment. Resume home medication. Monitor labs and vitals. DVT and GI prophylaxis. Further recommendations as per clinical course of the patient DVT prophylaxis: eliquis GI Prophylaxis: Ppi Prognosis is guarded
[2022-09-26 12:07] VITALS: PULSE 94
[2022-09-26] MEDS ORDERED: HYDROcodone/APAP 7.5-325MG 1 EACH TAB PO PRN (12:07)
[2022-09-26 12:30] VITALS: BMI 26.7
[2022-09-26 13:42] VITALS: BP 108/74; RESP 18; TEMP 98.4
[2022-09-26] MEDS ORDERED: ERTAPENEM 1 GM in SODIUM CHLORIDE 0.9% 50 ML IVPB SCH (14:00)
[2022-09-26] MEDS ORDERED: ONDANSETRON 4 MG TAB PO PRN (14:39)
--- NOTE | 2022-09-26 14:56 | P.DS ---
Providers Date of admission: 09/03/22 07:22 Expected date of discharge: 09/26/22 Attending physician: Sallie Oconnor Consults: 09/04/22 14:53 Consult Physician Routine Consulting Provider: Chacorta Green Consult Reason/Comments: medical Do you want consulting provider notified?: Yes 09/04/22 16:14 Consult Physician Urgent Consulting Provider: Hien Crabtree Consult Reason/Comments: sepsis, ileus vs sbo, temps Do you want consulting provider notified?: Yes 09/04/22 16:46 Consult Physician Routine Consulting Provider: [facility] Consult Reason/Comments: Anesthesia Care Do you want consulting provider notified?: Yes 09/04/22 16:47 Consult Physician Stat Consulting Provider: Stan Meredith Consult Reason/Comments: ICU management Do you want consulting provider notified?: Yes 09/04/22 16:58 Consult Physician Routine Consulting Provider: Tamera Carlson Consult Reason/Comments: Acute renal failure Do you want consulting provider notified?: Yes 09/08/22 08:40 Consult Physician Routine Consulting Provider: Joe Finn Consult Reason/Comments: New colon cancer Do you want consulting provider notified?: Yes 09/17/22 17:51 Consult Physician Urgent Consulting Provider: Bradford Russell Consult Reason/Comments: Supraventricular tachycardia, new EKG changes Do you want consulting provider notified?: Yes 09/25/22 09:53 Consult Physician Routine Consulting Provider: Lamonte Vegas Consult Reason/Comments: pain management Do you want consulting provider notified?: Yes Primary care physician: Analy Ramírez Hospital Course: Discharge diagnosis 1. Pneumoperitoneum due to perforated diverticulum 2. Tachycardia with fevers consistent with sepsis 3. Acute kidney injury, failure due to severe sepsis 4. Colon cancer status post resection 5. Liver abscess, para hepatic 6. Incisional wound abscess 7. Perforated anastomosis, acute 8. Fluid along the incision may reflect postsurgical seroma 9. Right lower quadrant fluid collection 10. DVT left arm Hospital course The patient is a 52-year-old male status post right hemicolectomy for colon cancer 08/29/2022. He was discharged from the hospital without sequelae 08/31/2022 and returned to the hospital 09/03/2022 for pneumoperitoneum. He is status post exploratory laparotomy, lysis of adhesions, evacuation of intra- abdominal abscess, right hemicolectomy for resection of perforated transverse colon diverticulum, 09/04/2022. He then developed acute abdominal pain with suspected bowel perforation. He was taken back to the operating room 09/13/2022 with ileostomy, drainage of perihepatic abscess and extensive lysis of adhesions with small bowel resection. Patient has had a prolonged hospitalization. He has also developed a DVT in the left arm and is now on Eliquis. Patient is tolerating diet. He is afebrile. His pain is controlled. He has been up and ambulating. His ostomy is functioning. He has been cleared by consultants for discharge. He is stable for discharge. He will be discharged with IV antibiotics. Physician Manager Adult note has been reviewed by physician. Signing provider agrees with the documented findings, assessment, and plan of care. Patient Condition at Discharge: Stable Plan - Discharge Summary New Discharge Prescriptions: New Apixaban Initiation Dose--VTE [Eliquis Initiation Dosing for VTE Treatment] See Taper PO BID 30 Days #74 tab Metoprolol Tartrate [Lopressor] 100 mg PO BID #60 tab Omeprazole [PriLOSEC] 40 mg PO DAILY #30 cap Ondansetron [Zofran] 4 mg PO Q8HR PRN 3 Days #12 tab PRN Reason: Nausea And Vomiting HYDROcodone/APAP 7.5-325MG [[place] 7.5-325] 1 tab PO Q6HR PRN 3 Days #12 tab PRN Reason: Pain Continue Simethicone [Gas-X] 125 mg PO AC-TID PRN #20 capsule PRN Reason: Pain Acetaminophen Tab [Tylenol Tab] 1,000 mg PO Q6HR PRN #30 tablet PRN Reason: Pain Discontinued Ibuprofen [Motrin] 600 mg PO Q8HR PRN #30 tab PRN Reason: Pain oxyCODONE-APAP 7.5-325MG [Percocet 7.5-325 mg] 1 tab PO Q6HR PRN 3 Days #12 tab PRN Reason: Pain Discharge Medication List Acetaminophen Tab [Tylenol Tab] 1,000 mg PO Q6HR PRN #30 tablet 08/31/22 [Rx] Simethicone [Gas-X] 125 mg PO AC-TID PRN #20 capsule 08/31/22 [Rx] Apixaban Initiation Dose--VTE [Eliquis Initiation Dosing for VTE Treatment] See Taper PO BID 30 Days #74 tab 09/26/22 [Rx] HYDROcodone/APAP 7.5-325MG [[place] 7.5-325] 1 tab PO Q6HR PRN 3 Days #12 tab 09/26/22 [Rx] Metoprolol Tartrate [Lopressor] 100 mg PO BID #60 tab 09/26/22 [Rx] Omeprazole [PriLOSEC] 40 mg PO DAILY #30 cap 09/26/22 [Rx] Ondansetron [Zofran] 4 mg PO Q8HR PRN 3 Days #12 tab 09/26/22 [Rx] Follow up Appointment(s)/Referral(s): Joe Finn MD [STAFF PHYSICIAN] - 10/06/22 4:30 pm (This appt is at the [facility] (behind [facility]) ) Analy Ramírez MD [Primary Care Provider] - 1-2 days [facility] [NON-STAFF] - 1 Week ([facility] will call you to schedule a visit) [facility] [NON-STAFF] - 1 Week ([facility] infusion will provide your antibiotic therapy) Hien Crabtree MD [STAFF PHYSICIAN] - 1 Week Sallie Oconnor MD [Family Provider] - 10/07/22 Patient Instructions/Handouts: Ileostomy Care (DC), Ileostomy Diet (DC) Activity/Diet/Wound Care/Special Instructions: Ileostomy Care Recommendations for Transition to Home: Last Pouching system change: 09.26.22 Mr Grajeda will have the following ileostomy supplies from the hospital for home: [employer] flange:(barriers) #04102 (3) [employer] pouches #36480 (3) No Sting prep pads (12) Ostomy powder (1) Tutu Seals (3) Barrier extenders (10) Mr Grajeda is to entire the pouch when it is 1/2 to 1/3 full Mr Grajeda is to change the entire pouching system every 3 - 4 days unless otherwise instructed via the Home Health care nurse or surgeon Home Health please arrange for permanent supplies for Mr Grajeda in 4 weeks after surgery Mr Grajeda will be receiving sample supplies for ileostomy care from [employer] in 5 - 7 days after discharge for 2 -3 weeks coverage No driving while taking [place] No lifting over 4 pounds in 4 weeks You May shower. Cover Don drain when showering No bath tub soaks for two weeks Discharge Disposition: HOME SELF-CARE
[2022-09-26] MEDS ORDERED: Apixaban Initiation Dose--VTE 5 MG TAB PO SCH (21:00)
== END 2022-09-26 17:35 | disposition home or self-care (01) | DRG 853 ==
LOC: EC 04:47 → 4SSUR 07:22 → 3SCARD 09:21 → 2SICU 09-04 21:44 → 4SSUR 09-23 21:03
PROVIDERS: ADMIT Surgery Plastic and Reconstructive Surgery; ATTEND Surgery Plastic and Reconstructive Surgery
PROC: 0D9670Z Drainage of Stomach with Drainage Device, Via Natural or Artificial Opening (ICD-10-PCS; 2022-09-03)
PROC: 8E0W0CZ Robotic Assisted Procedure of Trunk Region, Open Approach (ICD-10-PCS; 2022-09-04)
PROC: 0DTF0ZZ Resection of Right Large Intestine, Open Approach (ICD-10-PCS; principal; 2022-09-04 20:00)
PROC: 02HV33Z Insertion of Infusion Device into Superior Vena Cava, Percutaneous Approach (ICD-10-PCS; 2022-09-10)
PROC: 0F9130Z Drainage of Right Lobe Liver with Drainage Device, Percutaneous Approach (ICD-10-PCS; 2022-09-11)
PROC: 0DNW0ZZ Release Peritoneum, Open Approach (ICD-10-PCS; 2022-09-13)
PROC: 0W9G00Z Drainage of Peritoneal Cavity with Drainage Device, Open Approach (ICD-10-PCS; 2022-09-13)
PROC: 0DTA0ZZ Resection of Jejunum, Open Approach (ICD-10-PCS; 2022-09-13)
PROC: 0JB80ZZ Excision of Abdomen Subcutaneous Tissue and Fascia, Open Approach (ICD-10-PCS; 2022-09-13)
PROC: 0D1B0Z4 Bypass Ileum to Cutaneous, Open Approach (ICD-10-PCS; 2022-09-13)
PROC: 0DNV0ZZ Release Mesentery, Open Approach (ICD-10-PCS; 2022-09-13)
PROC: 5A1945Z Respiratory Ventilation, 24-96 Consecutive Hours (ICD-10-PCS; 2022-09-13)
PROC: 03HY32Z Insertion of Monitoring Device into Upper Artery, Percutaneous Approach (ICD-10-PCS; 2022-09-14)
PROC: 4A133B1 Monitoring of Arterial Pressure, Peripheral, Percutaneous Approach (ICD-10-PCS; 2022-09-14)
PROC: 4A133J1 Monitoring of Arterial Pulse, Peripheral, Percutaneous Approach (ICD-10-PCS; 2022-09-14)
PROC: 02HV33Z Insertion of Infusion Device into Superior Vena Cava, Percutaneous Approach (ICD-10-PCS; 2022-09-14)
PROC: 3E033XZ Introduction of Vasopressor into Peripheral Vein, Percutaneous Approach (ICD-10-PCS; 2022-09-14)
PROC: 30233N1 Transfusion of Nonautologous Red Blood Cells into Peripheral Vein, Percutaneous Approach (ICD-10-PCS; 2022-09-16)
PROC: 02HV33Z Insertion of Infusion Device into Superior Vena Cava, Percutaneous Approach (ICD-10-PCS; 2022-09-23)
PROC: 3E0436Z Introduction of Nutritional Substance into Central Vein, Percutaneous Approach (ICD-10-PCS; 2022-09-23)
DX: A41.51 Sepsis due to Escherichia coli [E. coli] (principal); J96.01 Acute respiratory failure with hypoxia; K55.029 Acute infarction of small intestine, extent unspecified; R65.21 Severe sepsis with septic shock; N17.0 Acute kidney failure with tubular necrosis; K75.0 Abscess of liver; K65.1 Peritoneal abscess; T82.868A Thrombosis due to vascular prosthetic devices, implants and grafts, initial encounter; T81.30XA Disruption of wound, unspecified, initial encounter; T81.32XA Disruption of internal operation (surgical) wound, not elsewhere classified, initial encounter; K91.89 Other postprocedural complications and disorders of digestive system; K56.699 Other intestinal obstruction unspecified as to partial versus complete obstruction; K56.50 Intestinal adhesions [bands], unspecified as to partial versus complete obstruction; B37.89 Other sites of candidiasis; I82.622 Acute embolism and thrombosis of deep veins of left upper extremity; I82.B12 Acute embolism and thrombosis of left subclavian vein; I47.1 Supraventricular tachycardia; C18.2 Malignant neoplasm of ascending colon; C18.0 Malignant neoplasm of cecum; D86.0 Sarcoidosis of lung; E87.20 Acidosis, unspecified; R18.8 Other ascites; E87.0 Hyperosmolality and hypernatremia; K57.20 Diverticulitis of large intestine with perforation and abscess without bleeding; J93.82 Other air leak; K91.872 Postprocedural seroma of a digestive system organ or structure following a digestive system procedure; E87.1 Hypo-osmolality and hyponatremia; D62 Acute posthemorrhagic anemia; Z16.24 Resistance to multiple antibiotics; K66.8 Other specified disorders of peritoneum; E78.5 Hyperlipidemia, unspecified; F17.210 Nicotine dependence, cigarettes, uncomplicated; E86.0 Dehydration; G89.28 Other chronic postprocedural pain; I10 Essential (primary) hypertension; J45.909 Unspecified asthma, uncomplicated; B95.2 Enterococcus as the cause of diseases classified elsewhere; B96.5 Pseudomonas (aeruginosa) (mallei) (pseudomallei) as the cause of diseases classified elsewhere; R50.81 Fever presenting with conditions classified elsewhere; E87.5 Hyperkalemia; R73.9 Hyperglycemia, unspecified; Y84.8 Other medical procedures as the cause of abnormal reaction of the patient, or of later complication, without mention of misadventure at the time of the procedure; Y83.8 Other surgical procedures as the cause of abnormal reaction of the patient, or of later complication, without mention of misadventure at the time of the procedure; Y83.2 Surgical operation with anastomosis, bypass or graft as the cause of abnormal reaction of the patient, or of later complication, without mention of misadventure at the time of the procedure; Y73.3 Surgical instruments, materials and gastroenterology and urology devices (including sutures) associated with adverse incidents; Z90.49 Acquired absence of other specified parts of digestive tract; Z28.310 Unvaccinated for COVID-19; Z86.718 Personal history of other venous thrombosis and embolism
CPT/HCPCS: 36415; 36573; 36600; 71045; 74018; 74019; 74176; 74177; 75989; 76705; 77012; 80048; 80053; 80076; 81003; 82150; 82272; 82330; 82728; 82805; 83036; 83540; 83550; 83605; 83690; 83735; 83880; 84100; 84132; 84295; 84443; 84478; 84484; 85025; 85027; 85610; 85730; 86850; 86900; 86901; 86920; 87040; 87070; 87075; 87077; 87186; 87205; 87324; 88305; 88307; 93005; 93306; 93970; 94002; 94003; 94640; 94760; 96361; 96374; 96375; 96376; 99285

== ENCOUNTER → 2022-11-03 | Outpatient (CLI) | payer BC, OTHER ==
[2022-11-03 08:40] LABS: African American GFR (CKD) >90 (>60 ml/min/1.73 sqM); Blood Urea Nitrogen 15 mg/dL (9-20); Non-African American GFR(CKD) >90 (>60 ml/min/1.73 sqM)
--- NOTE | 2022-11-03 10:22 | CT ---
EXAMINATION TYPE: CT abdomen pelvis w con DATE OF EXAM: 11/03/2022 COMPARISON: 09/18/2022 INDICATION: Peritoneal abscess DLP: 817.1 mGycm, Automated exposure control for dose reduction was used. CONTRAST: 100 mL of Isovue 300. Study performed with Oral Contrast TECHNIQUE: Axial images were obtained from above the diaphragm to the pubic rami in the axial plane a t 5 mm thick sections. Reconstructed images are reviewed on the computer in the coronal plane. FINDINGS: Limited CT sections are obtained the lung bases. There is a 0.8 cm density with a linear extension a way from this location at the posterior lateral right lung base. Series 4 image 1. Poorly for atelect asis. Underlying nodules should be considered and follow-up is recommended. Calcification is at the r ight diaphragm.. CT ABDOMEN: Liver: Normal Spleen: Normal Pancreas: Normal Adrenal glands: The adrenal glands are normal. Gallbladder: Normal Kidneys: No masses are evident. No hydronephrosis is present. There is a 1.5 cm cyst in the anterio r mid left kidney. Delayed images were obtained through the kidneys, which remain unremarkable. Previous right paracolic gutter abscess is not identified. There is some stranding remaining near the ostomy site without low density collection. A view calcifications are present within this region. Aorta: Normal Inferior vena cava: Normal. CT PELVIS: Loops of bowel within the abdomen and pelvis are normal. There is an ostomy in the right abdomen. Co ntrast extends to the ostomy level. The transverse and distal colon is decompressed. Ascending colo n appears resected. There are loops of bowel which are incompletely distended or lack oral contrast l imiting their evaluation. Appendix: Not identified. Urinary bladder: Normal. Genitourinary structures: Prostate is normal Osseous structures: No suspicious lytic or sclerotic lesions. IMPRESSIONS: 1. Resolution previous intraperitoneal abscess. Residual stranding at the abscess site is present wi thout suspicious fluid collection 2. Partially visualized 0.8 cm density in the posterolateral right lung could be some atelectasis. Fo llow-up is recommended. Other etiologies are not excluded at this time. 3. Left renal cyst.
== END | disposition home or self-care (01) ==
LOC: RADPROMAIN 08:01
PROVIDERS: ATTEND Internal Medicine Infectious Disease
DX: K65.1 Peritoneal abscess (principal); N28.1 Cyst of kidney, acquired; J98.4 Other disorders of lung
CPT/HCPCS: 82565; 84520; 74177; 36415; Q9967

== ENCOUNTER → 2023-01-06 | Outpatient (CLI) | payer BC, OTHER ==
--- NOTE | 2023-01-06 10:08 | XR ---
EXAMINATION TYPE: XR chest 2V DATE OF EXAM: 01/06/2023 COMPARISON: 09/18/2022 TECHNIQUE: PA and lateral views submitted. HISTORY: Preop FINDINGS: Bilateral lower lobe consolidation and small effusion. No overt failure. AC joint arthropathy. Hypert rophic and degenerative change of the spine. Heart size normal and no overt failure. Bilateral hilar enlargement. IMPRESSION: 1. Small bilateral pleural effusion. There is bilateral prominence of the hilum which could reflect p ulmonary arterial hypertension. Adenopathy in the differential diagnosis. Recommend follow-up CT scan .
== END | disposition home or self-care (01) ==
LOC: RADXRMAIN 09:43
PROVIDERS: ATTEND Family Medicine
DX: C18.9 Malignant neoplasm of colon, unspecified (principal); J90 Pleural effusion, not elsewhere classified; I27.0 Primary pulmonary hypertension
CPT/HCPCS: 71046

== ENCOUNTER → 2023-01-22 | Outpatient (CLI) | payer BC, OTHER ==
--- NOTE | 2023-01-28 14:45 | CT ---
EXAMINATION TYPE: CT abdomen pelvis w con, CT chest w con CT DLP: 1185.00 mGycm, Automated exposure control for dose reduction was used. DATE OF EXAM: 01/22/2023 11:57 AM COMPARISON: CT 11/03/2022 and dating back to 12/04/2016 CLINICAL INDICATION:Male, 52 years old with history of C18.0 COLON CANCER; Colon Cancer (accession [id number]), Pleural effusion, colon cancer (accession [id number]) TECHNIQUE: Axial CT of the ;CT abdomen pelvis w con, CT chest w con;Sagittal and coronal reformats w ere created on a separate workstation. Contrast used:100 ml mL of Isovue 300 with IV Contrast, (none if empty) Oral contrast used: with Oral Contrast (none if empty) FINDINGS: LUNGS/ PLEURA: Pleural calcifications are seen throughout the lungs. Findings are similar to 2017. Sc attered streaky atelectasis in the lung bases. No evidence for focal consolidation, pneumothorax or p leural effusion. No suspicious pulmonary nodules identified. AIRWAY: Patent and unremarkable. HEART: Size within normal limits. MEDIASTINUM: Prominent lymph nodes are seen throughout the mediastinum including subcarinal lymph nod e measuring 15 mm in short axis, right low paratracheal measuring 16 mm, AP window measuring 9 mm. Ly mph nodes are similar to 2016. VASCULATURE: No aortic aneurysm. MUSCULOSKELETAL: No acute osseous abnormalities SOFT TISSUES/LYMPH NODES: Unremarkable. LOWER NECK: No significant findings. ABDOMEN LIVER: Calcifications along the right liver capsule superiorly near the diaphragm are unchanged. GALLBLADDER AND BILE DUCTS: Unremarkable. PANCREAS: Unremarkable. SPLEEN: Unremarkable. ADRENAL GLANDS: Unremarkable. KIDNEYS AND URETERS: No evidence of hydronephrosis or renal calculus. The ureters are unremarkable. Simple appearing left renal cyst. PELVIS BLADDER: Unremarkable REPRODUCTIVE: Unremarkable. ABDOMEN & PELVIS STOMACH AND BOWEL: No evidence of bowel obstruction. Postsurgical changes to the bowel in the upper a bdomen with suture present. There is fat stranding around the anastomosis. No evidence for obvious ma ss. PERITONEUM/RETROPERITONEUM: No evidence of pneumoperitoneum. Small abdominal ascites throughout the a bdomen. VASCULATURE: No evidence of aortic aneurysm. MUSCULOSKELETAL: No acute osseous abnormalities LYMPH NODES: No gross evidence for lymphadenopathy. SOFT TISSUE/ABDOMINAL WALL: Subcutaneous fluid collection along the right anterior wall measuring 4.3 x 2.7 cm. This is near the site of prior ostomy. Post surgical changes anterior midline abdominal wa ll. IMPRESSION: 1. Prior abscess along the capsule the liver has resolved. There remains trace free fluid in the lef t abdomen. 2. Postsurgical changes of the bowel. With fat stranding around the anastomotic site which could rep resent postsurgical change. No obvious mass identified. No evidence for lymphadenopathy or evidence f or recurrent mass. 3. Subcutaneous seroma near the site of prior ostomy. 4. Lungs demonstrate calcifications along the pleura most pronounced inferiorly which are similar to 2017. There is also similar lymph nodes within the mediastinum compared to 2017. Findings likely rep resent chronic process.
== END | disposition home or self-care (01) ==
LOC: RADCTMAIN 06:32
PROVIDERS: ATTEND Family Medicine
DX: J90 Pleural effusion, not elsewhere classified (principal); J98.4 Other disorders of lung; Z48.815 Encounter for surgical aftercare following surgery on the digestive system
CPT/HCPCS: 71260; Q9967

== ENCOUNTER → 2023-01-22 | Outpatient (CLI) | payer BC, OTHER ==
--- NOTE | 2023-01-28 14:46 | CT ---
EXAMINATION TYPE: CT abdomen pelvis w con, CT chest w con CT DLP: 1185.00 mGycm, Automated exposure control for dose reduction was used. DATE OF EXAM: 01/22/2023 11:57 AM COMPARISON: CT 11/03/2022 and dating back to 12/04/2016 CLINICAL INDICATION:Male, 52 years old with history of C18.0 COLON CANCER; Colon Cancer (accession [id number]), Pleural effusion, colon cancer (accession [id number]) TECHNIQUE: Axial CT of the ;CT abdomen pelvis w con, CT chest w con;Sagittal and coronal reformats were created on a separate workstation. Contrast used:100 ml mL of Isovue 300 with IV Contrast, (none if empty) Oral contrast used: with Oral Contrast (none if empty) FINDINGS: LUNGS/ PLEURA: Pleural calcifications are seen throughout the lungs. Findings are similar to 2017. Scattered streaky atelectasis in the lung bases. No evidence for focal consolidation, pneumothorax or pleural effusion. No suspicious pulmonary nodules identified. AIRWAY: Patent and unremarkable. HEART: Size within normal limits. MEDIASTINUM: Prominent lymph nodes are seen throughout the mediastinum including subcarinal lymph node measuring 15 mm in short axis, right low paratracheal measuring 16 mm, AP window measuring 9 mm. Lymph nodes are similar to 2016. VASCULATURE: No aortic aneurysm. MUSCULOSKELETAL: No acute osseous abnormalities SOFT TISSUES/LYMPH NODES: Unremarkable. LOWER NECK: No significant findings. ABDOMEN LIVER: Calcifications along the right liver capsule superiorly near the diaphragm are unchanged. GALLBLADDER AND BILE DUCTS: Unremarkable. PANCREAS: Unremarkable. SPLEEN: Unremarkable. ADRENAL GLANDS: Unremarkable. KIDNEYS AND URETERS: No evidence of hydronephrosis or renal calculus. The ureters are unremarkable. Simple appearing left renal cyst. PELVIS BLADDER: Unremarkable REPRODUCTIVE: Unremarkable. ABDOMEN & PELVIS STOMACH AND BOWEL: No evidence of bowel obstruction. Postsurgical changes to the bowel in the upper abdomen with suture present. There is fat stranding around the anastomosis. No evidence for obvious mass. PERITONEUM/RETROPERITONEUM: No evidence of pneumoperitoneum. Small abdominal ascites throughout the abdomen. VASCULATURE: No evidence of aortic aneurysm. MUSCULOSKELETAL: No acute osseous abnormalities LYMPH NODES: No gross evidence for lymphadenopathy. SOFT TISSUE/ABDOMINAL WALL: Subcutaneous fluid collection along the right anterior wall measuring 4.3 x 2.7 cm. This is near the site of prior ostomy. Post surgical changes anterior midline abdominal wall. IMPRESSION: 1. Prior abscess along the capsule the liver has resolved. There remains trace free fluid in the left abdomen. 2. Postsurgical changes of the bowel. With fat stranding around the anastomotic site which could represent postsurgical change. No obvious mass identified. No evidence for lymphadenopathy or evidence for recurrent mass. 3. Subcutaneous seroma near the site of prior ostomy. 4. Lungs demonstrate calcifications along the pleura most pronounced inferiorly which are similar to 2017. There is also similar lymph nodes within the mediastinum compared to 2017. Findings likely represent chronic process. MTDD
== END | disposition home or self-care (01) ==
LOC: RADCTMAIN 06:36
PROVIDERS: ATTEND Internal Medicine Hematology & Oncology
DX: C18.0 Malignant neoplasm of cecum (principal); J90 Pleural effusion, not elsewhere classified; L76.34 Postprocedural seroma of skin and subcutaneous tissue following other procedure; Z98.890 Other specified postprocedural states
CPT/HCPCS: 74177; Q9967

== ENCOUNTER 2024-10-06 06:59 | Day surgery (SDC) | payer BC, OTHER ==
[~2024-10-06 06:59] MED LIST changes: -ACETAMINOPHEN TAB 500 MG TAB PO PRN; -ALVIMOPAN 12 MG CAPSULE PO PRN; -Antibiotics per Pharmacy 1 EACH MISC MISCELLANE PRN; -DEXAMETHASONE SOD PHOSPHATE 4 MG/ML 1 ML VIAL IV ONE; -HEPARIN SODIUM,PORCINE/PF 5,000 UNIT/0.5 ML SYRINGE SQ PRN; -HYDROmorphone 0.5 MG/0.5 ML SYRINGE IVP PRN; +LIDOCAINE 1% (10MG/ML) FOR IV START INTRADERMA PRN; -ONDANSETRON 4 MG/2 ML VIAL IVP ONE; -metroNIDAZOLE-NS PMX 500 MG in SALINE 1 100ML.BAG IVPB PRN
[2024-10-06] MEDS: IV FLUID CONTINUATION 1,000 ML IV ONE (07:19)
[2024-10-06 07:29] VITALS: TEMP 97
--- NOTE | 2024-10-06 07:34 | P.GSHP ---
History of Present Illness H&P Date: 10/06/24 CHIEF COMPLAINT: Dysphagia and colon screen HISTORY OF PRESENT ILLNESS: The patient is a 54-year-old male who presents with dysphagia, gastroesophageal reflux disease and need for colon screen. Upper and lower endoscopy were offered for further evaluation and management. PAST MEDICAL HISTORY: Please see list. PAST SURGICAL HISTORY: Please see list. MEDICATIONS: Please see list. ALLERGIES: Please see list. SOCIAL HISTORY: No illicit drug use FAMILY HISTORY: No reports of Crohn disease or ulcerative colitis. REVIEW OF ORGAN SYSTEMS: CONSTITUTIONAL: No reports of fevers or chills. GI: Denies any blood in stools or constipation. PHYSICAL EXAM: VITAL SIGNS: Stable GENERAL: Well-developed pleasant in no acute distress. HEENT: No scleral icterus. Extraocular movements grossly intact. Moist buccal mucosa. NECK: Supple without lymphadenopathy. CHEST: Unlabored respirations. Equal bilateral excursions. CARDIOVASCULAR: Regular rate and rhythm. Distal 2+ pulses. ABDOMEN: Soft, nondistended. MUSCULOSKELETAL: No clubbing, cyanosis, or edema. ASSESSMENT: 1. Dysphagia and gastroesophageal reflux disease 2. Colon screen. PLAN: 1. Recommend proceeding with an upper and lower endoscopy Past Medical History Past Medical History: Asthma, Cancer, Hyperlipidemia Additional Past Medical History / Comment(s): sarcoidosis, abn. colon polyps, hx. colon cancer, mild asthma History of Any Multi-Drug Resistant Organisms: None Reported Past Surgical History: Bowel Resection, Orthopedic Surgery Additional Past Surgical History / Comment(s): achilles tendon repair, colonscopy, partial colectomy with ostomy, then reversal of colostomy Past Anesthesia/Blood Transfusion Reactions: No Reported Reaction Additional Past Anesthesia/Blood Transfusion Reaction / Comment(s): no blood tx hx Smoking Status: Never smoker - Past Family History Mother Family Medical History: No Reported History Medications and Allergies Home Medications Medication Instructions Recorded Confirmed Type Albuterol Inhaler [Ventolin Hfa 1 - 2 puff INHALATION Q6H PRN 10/05/24 10/06/24 History Inhaler] Allergies Allergy/AdvReac Type Severity Reaction Status Date / Time No Known Allergies Allergy Verified 10/06/24 07: Surgical - Exam Vital Signs Temp Pulse Resp BP Pulse Ox 97 F L 65 16 129/89 99 10/06/24 07:27 10/06/24 07:27 10/06/24 07:27 10/06/24 07:27 10/06/24 07:27
[2024-10-06] MEDS: LACTATED RINGERS 1,000 ML IV SCH (07:38)
[2024-10-06] MEDS ORDERED: PROPOFOL 10 MG/ML 20 ML VIAL IV ONE (07:52)
[2024-10-06] MEDS ORDERED: LIDOCAINE 1% INJ 10MG/ML (20 ML MDV) ONE (07:52)
--- NOTE | 2024-10-06 08:05 | P.PCN ---
Date of Procedure: 10/06/24 Description of Procedure: PREOPERATIVE DIAGNOSIS: History of gastrointestinal bleeding due to acute gastric ulcer POSTOPERATIVE DIAGNOSIS: Gastritis. OPERATION: Esophagogastroduodenoscopy with cold forceps biopsies along esophagus, antrum and duodenum SURGEON: Sallie Oconnor MD ANESTHESIA: MAC. INDICATIONS: The patient is a 54-year-old male who presents with history of gastrointestinal bleeding with acute gastric ulcer. Benefits and risks of the procedure were described. Informed consent was obtained. DESCRIPTION: The patient was brought into the endoscopy suite and laid in the left lateral decubitus position. An Olympus gastroscope was passed along the posterior oropharynx down to the distal esophagus where the squamocolumnar junction was encountered at 42 cm from the incisors. The stomach was entered and no bile reflux was found. Additional findings are listed below. Biopsies with cold forceps were obtained of the antrum. The first through third portion of the duodenum was examined. Retroflexion of the scope confirmed Hill grade 1 lower esophageal valve. The squamocolumnar junction demonstrated LA grade B erosive esophagitis. The stomach was desufflated. The patient tolerated the procedure well. FINDINGS: Squamocolumnar junction 42 cm from the incisors. Diaphragmatic hiatus at 42 cm. Hill grade 1 lower esophageal valve. LA grade B erosive esophagitis. Biopsies obtained Biopsies obtained of the duodenum. Chronic gastritis with biopsies obtained. RECOMMENDATIONS: Upper endoscopy as needed.
--- NOTE | 2024-10-06 08:14 | P.PCN ---
Date of Procedure: 10/06/24 Description of Procedure: PREOPERATIVE DIAGNOSIS: History of ascending colon malignant cancer Status post right hemicolectomy POSTOPERATIVE DIAGNOSIS: History of ascending colon malignant cancer Status post right hemicolectomy OPERATION: Colonoscopy to the ileocecal anastomosis SURGEON: Sallie Oconnor MD. ANESTHESIA: MAC. INDICATIONS: The patient is a 54-year-old female who presents for colon cancer surveillance status post right hemicolectomy for ascending malignant colon cancer. Benefits and risks were described and informed consent was obtained. DESCRIPTION OF PROCEDURE: The patient had undergone Suprep. The patient had been brought into the operating room and laid in the left lateral decubitus position. After adequate intravenous sedation, the rectum was examined with 2% lidocaine jelly. No external hemorrhoids were encountered. The rectal tone was within normal limits. No lesions were palpated in the rectal vault. An Olympus colonoscope was advanced until the ileocecal anastomosis was viewed. The prep was excellent. No scattered diverticulosis was encountered. No colonic polyps were found. No evidence of focal colitis was found. Retroflexion of the scope demonstrated grade 1 internal hemorrhoids without active bleeding or inflammation. The colon was desufflated. The patient had tolerated the procedure well. Withdrawal time was over 6 minutes. FINDINGS: Aronchick preparation quality scale 1 (1-5) Internal hemorrhoids, grade 1 No external prolapsed hemorrhoids. No arteriovenous malformations. No adenomatous polyps. No focal colitis. Ileocecal anastomosis unremarkable RECOMMENDATIONS: Lower endoscopy yearly until 2027. Next due September 2025 Plan - Discharge Summary Discharge Rx Participant: No New Discharge Prescriptions: Continue Albuterol Inhaler [Ventolin Hfa Inhaler] 1 - 2 puff INHALATION Q6H PRN PRN Reason: Shortness Of Breath Discharge Medication List Albuterol Inhaler [Ventolin Hfa Inhaler] 1 - 2 puff INHALATION Q6H PRN 10/05/24 [History] Follow up Appointment(s)/Referral(s): Sallie Oconnor MD [STAFF PHYSICIAN] - 11/08/24 4:00 pm Patient Instructions/Handouts: Gastritis (DC) Activity/Diet/Wound Care/Special Instructions: Repeat colonoscopy yearly, due 2027. Next colonoscopy due September 2025 Discharge Disposition: HOME SELF-CARE
[2024-10-06 08:43] VITALS: BP 124/82; PULSE 78; RESP 16
== END 2024-10-06 09:38 | disposition home or self-care (01) ==
LOC: ORWHC2ENDO 06:59
PROVIDERS: ATTEND Surgery Plastic and Reconstructive Surgery
DX: Z12.11 Encounter for screening for malignant neoplasm of colon (principal); K64.0 First degree hemorrhoids; K29.50 Unspecified chronic gastritis without bleeding; K22.10 Ulcer of esophagus without bleeding; K21.00 Gastro-esophageal reflux disease with esophagitis, without bleeding; K44.9 Diaphragmatic hernia without obstruction or gangrene; E78.5 Hyperlipidemia, unspecified; J45.20 Mild intermittent asthma, uncomplicated; D86.9 Sarcoidosis, unspecified; Z86.0100 Personal history of colon polyps, unspecified; Z85.038 Personal history of other malignant neoplasm of large intestine; Z90.49 Acquired absence of other specified parts of digestive tract; Z98.0 Intestinal bypass and anastomosis status; Z87.11 Personal history of peptic ulcer disease
CPT/HCPCS: 88305; 45378; 43239; J2003; J2704